=== PATIENT | male | born 1950 | race African-American/Black ===

== ENCOUNTER 2020-03-06 11:01 | Inpatient (IN) | payer MEDICARE, OTHER ==
[~2020-03-06] VITALS: Ht 175.3 cm; Wt 103.4 kg
[2020-03-06 11:05] VITALS: BP 155/82
--- NOTE | 2020-03-06 11:05 | NUR ---
ED Nurse Note: Pt brought in by ambulance from [facility] d/t SOB x 1 week. Pt was desaturating to 88% on room air. Pt placed on nonrebreather 10 L by EMS and arrives with O2 sat of 98%. Pt is audibly wheezing. A+Ox4, speaking in complete sentences. Pt placed on monitor. Pt has hx of COPD
[2020-03-06] MEDS ORDERED: ARGINAID POWDE1 EACH PO (11:17)
[2020-03-06] MEDS ORDERED: IPRATROPIU0.2 MG/1 M HHN (11:17)
[2020-03-06] MEDS ORDERED: HUMALOG100 UNIT/4 SUBQ (11:17)
[2020-03-06] MEDS ORDERED: BUDESONIDE0.25 MG/2 IH (11:17)
[2020-03-06] MEDS ORDERED: NEPHROVITE1 TAB ORAL (11:17)
[2020-03-06] MEDS ORDERED: BETADINE3780 ML TP (11:17)
[2020-03-06] MEDS ORDERED: BENADRYL25 MG ORAL (11:17)
[2020-03-06] MEDS ORDERED: AMLODIPINE BESYL5 MG ORAL (11:17)
[2020-03-06] MEDS ORDERED: CLONIDINE HCL0.1 MG PO (11:17)
[2020-03-06] MEDS ORDERED: NORCO 5-325 TA1 EAC1 ORAL (11:20)
[2020-03-06] MEDS ORDERED: ROBITUSSIN COU118 M1 ORAL (11:20)
--- NOTE | 2020-03-06 11:40 | Emergency Room Report ---
History of Present Illness General Chief Complaint: Dyspnea/Respdistress Source: Patient, EMS Present Illness HPI Patient presents with 4 to 5 days of increasing dyspnea on exertion. In addition to that he has edema. 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 COVID-19 Screening: Negative COVID-19 COVID-19 Testing Source: 02/25/20 Patient History Past Medical History: see triage record, DM, HTN, CHF, COPD Past Surgical History: other - Amputation left fifth toe Social History: Reports: smoking Social History Narrative [facility] facility Reviewed Nursing Documentation: PMH: Agreed; PSxH: Agreed Nursing Documentation-PMH Past Medical History: No History, Except For Hx Hypertension: Yes Hx COPD: Yes Hx Diabetes: Yes Review of Systems All Other Systems: negative except mentioned in HPI Physical Exam Vital Signs Date Time Temp Pulse Resp B/P (MAP) Pulse Ox O2 Delivery O2 Flow Rate FiO2 03/06/20 10:56 97.5 77 16 148/86 (106) 96 Non-Rebreather 10.0 Sp02 EP Interpretation: reviewed, abnormal - Interpreted as low by me General Appearance: alert, moderate distress, Chronically Ill Eyes: bilateral eye normal inspection, bilateral eye PERRL, bilateral eye EOMI ENT: moist mucus membranes Neck: supple Respiratory: respiratory distress, crackles, wheezing, expiration Cardiovascular #1: regular rate, rhythm, edema Cardiovascular #2: 2+ radial (R) Gastrointestinal: non tender, non-distended, decreased bowel sounds, overweight Genitourinary: no CVA tenderness Musculoskeletal: back normal, swelling - Right forearm, other - Amputation left fifth toe Neurologic: alert, motor strength/tone normal, oriented - X2, DTRs symmetric, sensory intact Psychiatric: depressed affect, anxious Skin: warm/dry, other - Sallow Procedures Critical Care Time Critical Care Time Total Critical Care Time: 90 min bedside evaluation and treatment excludes procedures (EKG). Reason for critical care: Respiratory distress, hypoxia, congestive heart failure, renal failure, repeat evaluations, COPD Possible complications: hypotension, hypertension, SC, shock, arrhythmias, metabolic acidosis, end organ damage, respiratory failure. Interventions: Lasix, breathing treatments, repeat evaluations, repeat Lasix, coverage with antibiotics, treatment of bronchospasm, discussion with 2 admitting physicians Course: Patient presents with edema and dyspnea with hypoxia. Oxygen and Lasix ordered. Breathing treatments ordered. Unable to perform until Covid test returns. Several communications with respiratory therapy after Covid test returned negative. Some improvement after initial breathing treatment however dose given was not dose ordered. Dexamethasone ordered. Based on x-ray and hypoxia antibiotic coverage ordered. Patient hypertensive and Nitropaste had already been given. Oral medications also administered. With the results of renal failure Lasix dose increased and repeated. Ordered end-tidal CO2. Patient with some improvement. Discussion with primary physician in detail. He requested admission to panel physician and panel physician was contacted. Patient improved. Consultations: nursing staff, EMS, respiratory therapy, 2 admitting physicians Performed by: Dr. Overton Tolerated well condition = serious Medical Decision Making Diagnostic Impression: Primary Impression: Hypoxia Additional Impressions: CHF (congestive heart failure) Qualified Codes: I50.9 - Heart failure, unspecified COPD (chronic obstructive pulmonary disease) Qualified Codes: J44.1 - Chronic obstructive pulmonary disease with (acute) exacerbation Renal failure (ARF), acute on chronic Qualified Codes: N17.9 - Acute kidney failure, unspecified; N18.4 - Chronic kidney disease, stage 4 (severe) COVID-19 ruled out by laboratory testing ER Course Patient presents via paramedics with dyspnea and total body swelling. Differential includes pneumonia, COVID-19, congestive failure, COPD exacerbation amongst others. The patient denies chest pain at this time. He is dyspneic and working hard to breathe. Oxygen is helping. He has bronchospasm and needs breathing treatments. COVID-19 needs to be excluded. Patient is placed on a telemetry monitor. Some improvement after oxygen. EKG no injury. CXR with CHF. Lasix already given. Nitro paste ordered. Will cover with antibiotics even though WBC normal. Lactic acid normal. Broaden antibiotics anyway. 1338 COVID-19 test negative. CMP with elevated BUN and creatinine. Better after breathing treatment. Hypertensive. Meds ordered. ETCO2 also ordered. Initial dose of albuterol was 1/6 of total dose ordered. Discussion with respiratory therapy to make sure that the rest of dosing is given. Improvement after appropriate breathing treatments. Discussion with primary MD in detail. He requests admission to panel physician. Panel physician contacted. Repeat evaluation of patient with some urine output, less dyspnea however still with mild hypoxemia. Laboratory Tests Test 03/06/20 11:25 White Blood Count 10.0 K/UL (4.8-10.8) Red Blood Count 4.15 M/UL (4.70-6.10) L Hemoglobin 11.5 G/DL (14.2-18.0) L Hematocrit 35.8 % (42.0-52.0) L Mean Corpuscular Volume 86 FL (80-99) Mean Corpuscular Hemoglobin 27.8 PG (27.0-31.0) Mean Corpuscular Hemoglobin Concent 32.2 G/DL (32.0-36.0) Red Cell Distribution Width 15.0 % (11.6-14.8) H Platelet Count 253 K/UL (150-450) Mean Platelet Volume 8.0 FL (6.5-10.1) Neutrophils (%) (Auto) 70.3 % (45.0-75.0) Lymphocytes (%) (Auto) 16.6 % (20.0-45.0) L Monocytes (%) (Auto) 8.2 % (1.0-10.0) Eosinophils (%) (Auto) 3.8 % (0.0-3.0) H Basophils (%) (Auto) 1.1 % (0.0-2.0) Prothrombin Time 11.2 SEC (9.30-11.50) Prothrombin Time INR 1.0 (0.9-1.1) Activated Partial Thromboplast Time 31 SEC (23-33) Sodium Level 137 MMOL/L (136-145) Potassium Level 4.8 MMOL/L (3.5-5.1) Chloride Level 105 MMOL/L (98-107) Carbon Dioxide Level 21 MMOL/L (21-32) Anion Gap 11 mmol/L (5-15) Blood Urea Nitrogen 50 mg/dL (7-18) H Creatinine 3.9 MG/DL (0.55-1.30) H Estimated Glomerular Filtration Rate 18.8 mL/min (>60) Glucose Level 162 MG/DL (74-106) H Lactic Acid Level 1.30 mmol/L (0.4-2.0) Calcium Level 8.4 MG/DL (8.5-10.1) L Magnesium Level 2.3 MG/DL (1.8-2.4) Ferritin 59 NG/ML (8-388) Total Bilirubin 0.2 MG/DL (0.2-1.0) Aspartate Amino Transferase (AST) 26 U/L (15-37) Alanine Aminotransferase (ALT) 24 U/L (12-78) Alkaline Phosphatase 120 U/L (46-116) H Lactate Dehydrogenase 237 U/L (81-234) H Total Creatine Kinase 374 U/L (26-308) H Creatine Kinase MB 8.1 NG/ML (0.0-3.6) H Creatine Kinase MB Relative Index 2.1 Troponin I 0.012 ng/mL (0.000-0.056) C-Reactive Protein, Quantitative 4.2 mg/dL (0.00-0.90) H Pro-B-Type Natriuretic Peptide 3937 pg/mL (0-125) H Total Protein 7.4 G/DL (6.4-8.2) Albumin 2.8 G/DL (3.4-5.0) L Globulin 4.6 g/dL Albumin/Globulin Ratio 0.6 (1.0-2.7) L Lipase 128 U/L (73-393) Microbiology Date/Time Source Procedure Growth Status 03/06/20 11:40 Nasopharynx SARS-CoV-2 RdRp Gene Assay - Final Complete EKG Diagnostic Results Rate: normal Rhythm: NSR ST Segments: no acute changes Rhythm Strip Diag. Results EP Interpretation: yes Rhythm: NSR, no PVC's, no ectopy Chest X-Ray Diagnostic Results Chest X-Ray Diagnostic Results : Chest X-Ray Ordered: Yes # of Views/Limited/Complete: 1 View Indication: Shortness of Breath EP Interpretation: Yes Interpretation: no pneumothorax, other - bilat inc cantor with possible R effusion Impression: Other Electronically Signed by: Electronically signed by Ganesh Overton MD Last Vital Signs Date Time Temp Pulse Resp B/P (MAP) Pulse Ox O2 Delivery O2 Flow Rate FiO2 03/06/20 22:17 86 20 96 Venturi Mask 10.0 50 03/06/20 18:22 147/82 03/06/20 16:15 96.6 Status: improved Disposition: ADMITTED INPATIENT Condition: Serious Ganesh Overton MD Mar 06, 2020 11:40
[2020-03-06 11:41] LABS: BASOPHILS % (AUTO) 1.1 % (0.0-2.0); EOSINOPHILS % (AUTO) 3.8 % (0.0-3.0); HEMATOCRIT 35.8 % (42.0-52.0); HEMOGLOBIN 11.5 G/DL (14.2-18.0); LYMPHOCYTES % (AUTO) 16.6 % (20.0-45.0); MEAN CORPUSCULAR VOLUME 86 FL (80-99); MONOCYTES % (AUTO) 8.2 % (1.0-10.0); NEUTROPHILS % (AUTO) 70.3 % (45.0-75.0); PLATELET COUNT 253 K/UL (150-450); RED BLOOD COUNT 4.15 M/UL (4.70-6.10)
[2020-03-06] MEDS ORDERED: Ipratropium 0.02% Inh Soln 2.5ml UD HHN ONE (11:45)
[2020-03-06] MEDS ORDERED: dexAMETHasone 10mg/ml Inj IV ONE (11:45)
[2020-03-06 11:53] LABS: CALCIUM 8.4 MG/DL (8.5-10.1); CREATININE 3.9 MG/DL (0.55-1.30); POTASSIUM 4.8 MMOL/L (3.5-5.1)
--- NOTE | 2020-03-06 12:00 | NUR ---
ED Nurse Note: ED MD placed pt on 3 L NC to assess pt's oxygen saturation. Pt satting 92%.
[2020-03-06 12:08] LABS: ALBUMIN 2.8 G/DL (3.4-5.0); ALBUMIN/GLOBULIN RATIO 0.6 (1.0-2.7); BILIRUBIN,TOTAL 0.2 MG/DL (0.2-1.0); CKMB 8.1 NG/ML (0.0-3.6)
--- NOTE | 2020-03-06 12:10 | NUR ---
ED Nurse Note: pt aware of need for urine sample
--- NOTE | 2020-03-06 12:25 | Diagnostic Imaging Report ---
EXAM: XR Chest, 1 View CLINICAL HISTORY: DYSPNEA TECHNIQUE: Frontal view of the chest. COMPARISON: None FINDINGS: Hardware: None. Lungs/pleura: Extensive opacities/consolidations throughout the lungs with some sparing of the lung apices. Right greater than left pleural effusions. Heart/mediastinum: Enlargement of the cardiomediastinal silhouette. Soft tissues: Unremarkable. Bones: No acute fracture. Upper abdomen: Normal. IMPRESSION: Extensive opacities/consolidations throughout the lungs with some sparing of the lung apices, concerning for infectious/inflammatory process and/or pulmonary edema. Right greater than left pleural effusions.
[2020-03-06 13:00] VITALS: BP 162/88
--- NOTE | 2020-03-06 13:27 | NUR ---
ED Nurse Note: urine, mrsa, cre, vre swabs sent
[2020-03-06] MEDS ORDERED: Nitroglycerin 2% oint pkt TOPIC ONE (13:45)
[2020-03-06] MEDS ORDERED: Azithromycin 500 MG in D5W 275 ML IV ONE (13:45)
[2020-03-06] MEDS ORDERED: cefTRIAXone 1 GM in D5W 55 ML IVPB SCH (13:45)
--- NOTE | 2020-03-06 14:10 | NUR ---
ED Nurse Note: RT @ bedside
[2020-03-06] MEDS: Albuterol ud Inhalation HHN SCH ×3 (14:20→15:48)
[2020-03-06 15:07] LABS: APPEARANCE,URINE SLIGHTLY CLOUDY; BILIRUBIN, URINE NEGATIVE (NEGATIVE); COLOR,URINE PALE YELLOW; GLUCOSE, URINE (UA) 2+ (NEGATIVE); KETONES,URINE NEGATIVE (NEGATIVE); LEUKOCYTE ESTERASE ,URINE NEGATIVE (NEGATIVE); NITRITE,URINE NEGATIVE (NEGATIVE); PH,URINE 5 (4.5-8.0); PROTEIN,URINE 4+ (NEGATIVE); UROBILINOGEN,URINE NORMAL MG/DL (0.0-1.0)
--- NOTE | 2020-03-06 15:48 | NUR ---
ED Nurse Note: Scanner not working for RT. Scanned breathing tx medications for him after they were administered.
--- NOTE | 2020-03-06 15:53 | NUR ---
ED Nurse Note: report given to Kaur RN in 2E
--- NOTE | 2020-03-06 16:01 | NUR ---
ED Nurse Note: Dr. Serna @ bedside
--- NOTE | 2020-03-06 16:07 | Cardiac Electrophysiology PN ---
Subjective Subjective [id number]. ECG SR with RBBB, LAFB BNP 30K.Cr 3.5 Start Lasix 80 iv bid Objective Last 24 Hour Vital Signs Date Time Temp Pulse Resp B/P (MAP) Pulse Ox O2 Delivery O2 Flow Rate FiO2 03/06/20 15:56 172/74 03/06/20 15:56 77 172/74 03/06/20 13:47 163/74 03/06/20 13:00 98.3 79 20 162/88 92 Nasal Cannula 3.0 03/06/20 11:05 97.9 72 20 155/82 96 Non-Rebreather 10.0 03/06/20 11:05 82 16 Non-Rebreather 10.0 03/06/20 10:56 97.5 77 16 148/86 (106) 96 Non-Rebreather 10.0 Laboratory Tests Test 03/06/20 11:25 03/06/20 13:24 White Blood Count 10.0 K/UL (4.8-10.8) Red Blood Count 4.15 M/UL (4.70-6.10) L Hemoglobin 11.5 G/DL (14.2-18.0) L Hematocrit 35.8 % (42.0-52.0) L Mean Corpuscular Volume 86 FL (80-99) Mean Corpuscular Hemoglobin 27.8 PG (27.0-31.0) Mean Corpuscular Hemoglobin Concent 32.2 G/DL (32.0-36.0) Red Cell Distribution Width 15.0 % (11.6-14.8) H Platelet Count 253 K/UL (150-450) Mean Platelet Volume 8.0 FL (6.5-10.1) Neutrophils (%) (Auto) 70.3 % (45.0-75.0) Lymphocytes (%) (Auto) 16.6 % (20.0-45.0) L Monocytes (%) (Auto) 8.2 % (1.0-10.0) Eosinophils (%) (Auto) 3.8 % (0.0-3.0) H Basophils (%) (Auto) 1.1 % (0.0-2.0) Prothrombin Time 11.2 SEC (9.30-11.50) Prothromb Time International Ratio 1.0 (0.9-1.1) Activated Partial Thromboplast Time 31 SEC (23-33) Sodium Level 137 MMOL/L (136-145) Potassium Level 4.8 MMOL/L (3.5-5.1) Chloride Level 105 MMOL/L (98-107) Carbon Dioxide Level 21 MMOL/L (21-32) Anion Gap 11 mmol/L (5-15) Blood Urea Nitrogen 50 mg/dL (7-18) H Creatinine 3.9 MG/DL (0.55-1.30) H Estimat Glomerular Filtration Rate 18.8 mL/min (>60) Glucose Level 162 MG/DL (74-106) H Lactic Acid Level 1.30 mmol/L (0.4-2.0) Calcium Level 8.4 MG/DL (8.5-10.1) L Magnesium Level 2.3 MG/DL (1.8-2.4) Ferritin 59 NG/ML (8-388) Total Bilirubin 0.2 MG/DL (0.2-1.0) Aspartate Amino Transf (AST/SGOT) 26 U/L (15-37) Alanine Aminotransferase (ALT/SGPT) 24 U/L (12-78) Alkaline Phosphatase 120 U/L (46-116) H Lactate Dehydrogenase 237 U/L (81-234) H Total Creatine Kinase 374 U/L (26-308) H Creatine Kinase MB 8.1 NG/ML (0.0-3.6) H Creatine Kinase MB Relative Index 2.1 Troponin I 0.012 ng/mL (0.000-0.056) C-Reactive Protein, Quantitative 4.2 mg/dL (0.00-0.90) H Pro-B-Type Natriuretic Peptide 3937 pg/mL (0-125) H Total Protein 7.4 G/DL (6.4-8.2) Albumin 2.8 G/DL (3.4-5.0) L Globulin 4.6 g/dL Albumin/Globulin Ratio 0.6 (1.0-2.7) L Lipase 128 U/L (73-393) Urine Color Pale yellow Urine Appearance Slightly cloudy Urine pH 5 (4.5-8.0) Urine Specific [place] 1.020 (1.005-1.035) Urine Protein 4+ (NEGATIVE) H Urine Glucose (UA) 2+ (NEGATIVE) H Urine Ketones Negative (NEGATIVE) Urine Blood 2+ (NEGATIVE) H Urine Nitrite Negative (NEGATIVE) Urine Bilirubin Negative (NEGATIVE) Urine Urobilinogen Normal MG/DL (0.0-1.0) Urine Leukocyte Esterase Negative (NEGATIVE) Urine RBC 10-15 /HPF (0 - 0) H Urine WBC 0-2 /HPF (0 - 0) Urine Squamous Epithelial Cells Few /LPF (NONE/OCC) Urine Amorphous Sediment Few /LPF (NONE) H Urine Bacteria Few /HPF (NONE) Urine Granular Casts 0-2 /LPF (NONE) H Urine Fine Granular Casts 0-2 /LPF (NONE) H Urine Coarse Granular Casts /LPF (NONE) Microbiology Date/Time Source Procedure Growth Status 03/06/20 11:40 Nasopharynx SARS-CoV-2 RdRp Gene Assay - Final Complete Ponce Serna MD Mar 06, 2020 16:07
[2020-03-06 16:15] VITALS: BP 147/82
--- NOTE | 2020-03-06 16:15 | NUR ---
ED Nurse Note: pt transferred safely to 2E on the [facility] with all belongings.
--- NOTE | 2020-03-06 16:50 | NUR ---
NURSE NOTES: Patient admitted from ED, alert and oriented x 4. On O2 at 4L nasal cannula, breathing labored, wheezing noted in lungs, saturation ranging from 87-91%. IV line on left forearm g20, patent. secured entrance monitor placed. Skin check done, with sacral discoloration noted, picture taken. BLE edema noted. right hand and forearm swelling noted, patient verbalized it was from his IV from another hospital a few weeks ago. 5th digit left foot amputated, procedure done last week as verbalized by patient. Belongings accounted for. Oriented to room and call light. Bed locked in low position, head of bed elevated. Dr Cueva notified of admission, awaiting response for admission orders.
[2020-03-06] MEDS: HydrALAZINE 25mg tab ORAL SCH (18:22)
[2020-03-06] MEDS: D5 1/2NS 1,000 ML IV SCH (18:22)
[2020-03-06] MEDS ORDERED: Morphine Sulfate 2mg/ml Inj(IV/IM USE ONLY) IVP PRN (18:45)
[2020-03-06] MEDS ORDERED: Chloraseptic Spray 20mL Bottle ORAL PRN (19:00)
[2020-03-06] MEDS ORDERED: Ipratropium 0.02% Inh Soln 2.5ml UD HHN PRN (19:00)
--- NOTE | 2020-03-06 19:15 | Consultation ---
DATE OF CONSULTATION: 03/06/2020 CARDIOLOGY CONSULTATION REFERRING PHYSICIAN: Pasha Cueva D.O. REASON FOR CONSULTATION: Congestive heart failure, shortness of breath. HISTORY OF PRESENT ILLNESS: The patient is a 69-year-old gentleman with a history of hypertension, COPD, diabetes, who was brought to the emergency room for increasing shortness of breath and lower extremity edema as well as right hand edema. The patient's pulse ox was 96% in the emergency room with a blood pressure of 148/86 with a pulse of 77. A cardiology consultation was obtained for further evaluation and management. His BUN was 50, creatinine 3.9. Troponin 0.01. BNP is almost 4000. REVIEW OF SYSTEMS: Negative other than what is mentioned in history of present illness. PAST MEDICAL HISTORY: As mentioned above. FAMILY HISTORY: Noncontributory. 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 Does not smoke or drink alcohol. MEDICATIONS: Per reconciliation include amlodipine 5 mg b.i.d. and p.r.n. clonidine, insulin, and [place]. PHYSICAL EXAMINATION: VITAL SIGNS: Blood pressure 172/74, pulse is 77, respirations are 18, and he is afebrile. HEAD AND NECK: Positive JVD. LUNGS: Decreased breath sounds. CARDIOVASCULAR: Regular S1 and S2 with no gallop. ABDOMEN: Soft. EXTREMITIES: 3+ pitting edema in lower extremities as well as 2+ pitting edema in right arm. LABORATORY AND DIAGNOSTIC DATA: Labs show white count of 10, hemoglobin 11.5, hematocrit 35.8, and platelets of 253,000. Sodium 137, potassium 4.8, BUN of 50, creatinine 2.9, and glucose of 162. Troponin is negative. ALT is 50 and alkaline phosphatase is elevated. ASSESSMENT AND PLAN: 1. Severe bilateral lower extremity edema with shortness of breath and BNP of almost 4000. This could be due to renal failure as well. I will discontinue amlodipine. Start the patient on Lasix 80 mg IV b.i.d. We will get an echocardiogram and lower extremity duplex as well as right arm duplex. 2. Hypertension. We will maximize his Lasix lower extremity edema. I will add hydralazine to his medical regimen at 50 mg b.i.d. and p.r.n. clonidine. 3. Renal failure, creatinine was 3.9. Further evaluation by Nephrology. 4. COPD. Thank you very much for allowing me to participate in the care of this patient. Please do not hesitate to contact me for any questions regarding my evaluation. It is of note the patient also has diabetes and he is also on insulin. Ponce Serna M.D. DR: BHAVNA JOB#: [id number] CC:
--- NOTE | 2020-03-06 19:44 | NUR ---
NURSE HAND-OFF REPORT: Important Events on Shift:admission, orders in. Insulin sliding scale order endorsed to Diane RN. RT setting up venturi mask 50% as ordered by Dr Caceres Patient Status: alert, with SOB Diet: regular Pending Orders: Pending Results/Labs:covid Pending MD notification: Latest Vital Signs: Temperature 97.0 , Pulse 81 , B/P 147 /82 , Respiratory Rate 20 , O2 SAT 93 , Nasal Cannula, O2 Flow Rate 4.0 . Vital Sign Comment: EKG Rhythm: Sinus Rhythm Rhythm change?: MD Notified?: - MD Response: Latest Ryan Fall Score: 20 Fall Risk: Low Risk Safety Measures: Call light Within Reach, Bed Alarm Zone 1, Side Rails Side Rails x3, Bed position Low and Locked. Fall Precautions: Report given to Diane TAMAYO.
--- NOTE | 2020-03-06 19:45 | NUR ---
NURSE NOTES: Patient received from Kaur, RN. Patient is awake, alert and oriented x 4. Patient is on 4 L oxygen mask, will change to 50% 10 L Venturi mask per order, will notify RT. Patient has urinal in bed, able to use it by himself. Patient has Left AC 20 gauge IV, patent and flushed. Patient has no complaints as of the moment. Bed is in the lowest position, call light within reach. Will continue to monitor.
[2020-03-06 20:00] VITALS: BP 137/73
--- NOTE | 2020-03-06 21:00 | Consultation ---
DATE OF CONSULTATION: 03/06/2020 PULMONARY CONSULTATION HISTORY OF PRESENT ILLNESS: This is a 69-year-old male with a history of hypertension and COPD, who was brought to the hospital with shortness of breath. The patient is also a known diabetic. The patient was found to have normal oxygenation initially in the ER, currently saturating 88% on 4 liters of oxygen. The patient was also found to have evidence of renal failure with a creatinine of 3.9. Troponins negative. BNP is over 4000. He underwent imaging studies, which showed bilateral extensive opacities concerning for infectious process or pulmonary edema. There is also a pleural effusion. The patient has been seen by Cardiology. HOME MEDICATIONS: Amlodipine, clonidine, insulin, [place]. FAMILY HISTORY: None. SURGERIES: None. ALLERGIES: Penicillin. REVIEW OF SYSTEMS: Denies any headaches, hematemesis, melena, or hematochezia. PHYSICAL EXAMINATION: GENERAL: A 69-year-old male. HEENT: Unremarkable. LUNGS: Bibasilar crackles. ABDOMEN: Soft. VITAL SIGNS: Blood pressure is 140/80, heart rate 94, respirations are 20, O2 sats 90% on 4 liters of oxygen. LABORATORY DATA: . Creatinine of 3.9. He has elevation of alk phos to 120, LDH 237, total CK 374, CK 8.1, CRP is 4.2. Coags show normal PT, PTT. Urinalysis is negative. IMPRESSION: 1. Pulmonary infiltrates bilaterally, suspect infectious process versus pulmonary edema. 2. Hypertension. 3. Diabetes mellitus. 4. Renal failure. 5. COPD. DISCUSSION: We will initiate breathing treatments with albuterol and Atrovent after COVID-19 testing is available. Broad-spectrum antibiotics will be given. The patient has received Decadron as well and diuretics. Await COVID-19 testing. We will follow carefully. Jacob Caceres M.D. DR: TAHIR JOB#: [id number] CC:
[2020-03-06] MEDS: Budesonide HHN 0.25mg/2ml ud HHN SCH (22:07)
[2020-03-06] MEDS: NovoLOG Insulin Flexpen SUBQ SCH (22:21)
[2020-03-07] VITALS: BP 145/56
[2020-03-07 04:00] VITALS: BP 137/74
[2020-03-07] MEDS: NovoLOG Insulin Flexpen SUBQ SCH ×4 (06:30→20:53)
--- NOTE | 2020-03-07 07:40 | NUR ---
NURSE HAND-OFF REPORT: Important Events on Shift:[Patient able to stand up] Patient Status: [] Diet: [regular diet] Pending Orders: [] Pending Results/Labs:[] Pending MD notification:[] Latest Vital Signs: Temperature 98.1 , Pulse 90 , B/P 137 /74 , Respiratory Rate 28 , O2 SAT 94 , Venturi Mask, O2 Flow Rate 10.0 . Vital Sign Comment: [] EKG Rhythm: Sinurs Rhythm w/ BBB Rhythm change?: N MD Notified?: - MD Response: Latest Ryan Fall Score: 20 Fall Risk: Low Risk Safety Measures: Call light Within Reach, Bed Alarm Zone 1, Side Rails Side Rails x2, Bed position Low and Locked. Fall Precautions: Yellow Socks Yellow Gown Patient Fall Education Report given to [BELKIS Whelan].
--- NOTE | 2020-03-07 07:46 | NUR ---
NURSE NOTES: Patient sitting up at edge of bed, just finished breakfast and asking for more food, on room air, has removed his venturi mask, patient appears very disheveled and anxious, bed in lowest position, call light within reach. I am urging patient to put venturi mask on, patient refusing to wear the mask.
[2020-03-07 08:00] VITALS: BP 122/66
--- NOTE | 2020-03-07 08:36 | Pulmonology Progress Note ---
Subjective Interval Events: Feeling better; keeps taking O2 off Constitutional: Reports: no symptoms HEENT: Repors: no symptoms Respiratory: Reports: no symptoms Cardiovascular: Reports: no symptoms Gastrointestinal/Abdominal: Reports: no symptoms Genitourinary: Reports: no symptoms Allergies: Coded Allergies: PENICILLINS (Verified Allergy, Unknown, 03/06/20) Uncoded Allergies: SEAFOOD (Allergy, Unknown, 03/06/20) Objective Last 24 Hour Vital Signs Date Time Temp Pulse Resp B/P (MAP) Pulse Ox O2 Delivery O2 Flow Rate FiO2 03/07/20 08:00 98.1 77 20 122/66 (84) 95 03/07/20 04:00 98.1 88 28 137/74 (95) 94 03/07/20 04:00 90 03/07/20 00:00 98.0 88 24 145/56 (85) 94 03/07/20 00:00 96 03/06/20 22:17 86 20 96 Venturi Mask 10.0 50 03/06/20 22:07 89 22 94 Venturi Mask 10.0 50 03/06/20 21:00 Venturi Mask 03/06/20 20:00 98.0 88 32 137/73 (94) 93 03/06/20 20:00 88 03/06/20 19:45 88 20 92 Venturi Mask 10.0 50 03/06/20 19:45 92 Venturi Mask 10.0 50 03/06/20 18:22 147/82 03/06/20 17:10 Nasal Cannula 4.0 03/06/20 16:15 96.6 84 20 147/82 (103) 90 03/06/20 16:15 97.0 81 20 141/89 93 Nasal Cannula 4.0 36 03/06/20 16:01 77 21 96 Nasal Cannula 4.0 36 81 27 96 03/06/20 15:56 172/74 03/06/20 15:56 77 172/74 03/06/20 15:49 77 24 96 Nasal Cannula 4.0 36 77 24 93 03/06/20 14:20 94 27 94 Nasal Cannula 4.0 36 73 27 92 03/06/20 13:47 163/74 03/06/20 13:00 98.3 79 20 162/88 92 Nasal Cannula 3.0 03/06/20 11:05 97.9 72 20 155/82 96 Non-Rebreather 10.0 03/06/20 11:05 82 16 Non-Rebreather 10.0 03/06/20 10:56 97.5 77 16 148/86 (106) 96 Non-Rebreather 10.0 Intake and Output 03/06/20 03/07/20 19:00 07:00 Intake Total 800 ml Output Total 900 ml 600 ml Balance -100 ml -600 ml Intake Oral 800 ml Output Urine Total 900 ml 600 ml # Voids 4 2 # Bowel Movements 1 1 General Appearance: no acute distress HEENT: normocephalic Respiratory: chest wall non-tender, lungs clear Cardiovascular: normal peripheral pulses, normal rate Abdomen: normal bowel sounds Microbiology Date/Time Source Procedure Growth Status 03/06/20 13:24 Rectum Received 03/06/20 11:40 Nasopharynx SARS-CoV-2 RdRp Gene Assay - Final Complete Laboratory Tests 03/06/20 11:25: White Blood Count 10.0, Red Blood Count 4.15L, Hemoglobin 11.5L, Hematocrit 35.8L, Mean Corpuscular Volume 86, Mean Corpuscular Hemoglobin 27.8, Mean Corpuscular Hemoglobin Concent 32.2, Red Cell Distribution Width 15.0H, Platelet Count 253, Mean Platelet Volume 8.0, Neutrophils (%) (Auto) 70.3, Lymphocytes (%) (Auto) 16.6L, Monocytes (%) (Auto) 8.2, Eosinophils (%) (Auto) 3.8H, Basophils (%) (Auto) 1.1, Prothrombin Time 11.2, Prothromb Time International Ratio 1.0, Activated Partial Thromboplast Time 31, Sodium Level 137, Potassium Level 4.8, Chloride Level 105, Carbon Dioxide Level 21, Anion Gap 11, Blood Urea Nitrogen 50H, Creatinine 3.9H, Estimat Glomerular Filtration Rate 18.8, Glucose Level 162H, Lactic Acid Level 1.30, Calcium Level 8.4L, Magnesium Level 2.3, Ferritin 59, Total Bilirubin 0.2, Aspartate Amino Transf (AST/SGOT) 26, Alanine Aminotransferase (ALT/SGPT) 24, Alkaline Phosphatase 120H, Lactate Dehydrogenase 237H, Total Creatine Kinase 374H, Creatine Kinase MB 8.1H, Creatine Kinase MB Relative Index 2.1, Troponin I 0.012, C-Reactive Protein, Quantitative 4.2H, Pro-B-Type Natriuretic Peptide 3937H, Total Protein 7.4, Albumin 2.8L, Globulin 4.6, Albumin/Globulin Ratio 0.6L, Lipase 128 03/06/20 13:24: Urine Color Pale yellow, Urine Appearance Slightly cloudy, Urine pH 5, Urine Specific Mitchell 1.020, Urine Protein 4+H, Urine Glucose (UA) 2+H, Urine Ketones Negative, Urine Blood 2+H, Urine Nitrite Negative, Urine Bilirubin Negative, Urine Urobilinogen Normal, Urine Leukocyte Esterase Negative, Urine RBC 10-15H, Urine WBC 0-2, Urine Squamous Epithelial Cells Few, Urine Amorphous Sediment FewH, Urine Bacteria Few, Urine Granular Casts 0-2H, Urine Fine Granular Casts 0-2H, Urine Coarse Granular Casts 03/06/20 18:10: Troponin I 0.012 03/06/20 22:17: POC Whole Blood Glucose 369H 03/07/20 06:40: POC Whole Blood Glucose 139H Current Medications Medications (Trade) Dose Ordered Sig/Melissa Route PRN Reason Start Time Stop Time Status Last Admin Dose Admin Acetaminophen/ Hydrocodone Bitart ([place]el[place] 5/325) 1 tab Q4H PRN ORAL Moderate Pain (Pain Scale 4-6) 03/06/20 19:00 03/13/20 18:59 Albuterol/ Ipratropium (Albuterol/ Ipratropium) 3 ml Q6H PRN HHN Shortness of Breath 03/06/20 18:15 03/11/20 18:14 Amlodipine Besylate (Norvasc) 5 mg BID ORAL 03/07/20 09:00 04/06/20 08:59 Budesonide (Pulmicort) 0.25 mg EVERY 12 HOURS HHN 03/06/20 21:00 06/04/20 20:59 03/06/20 22:07 Clonidine HCl (Catapres Tab) 0.1 mg Q4H PRN ORAL SBP>170 03/06/20 16:15 06/04/20 16:14 Dextrose (Dextrose 50%) 25 ml Q30M PRN IV Hypoglycemia 03/06/20 20:00 06/04/20 19:59 Dextrose (Dextrose 50%) 50 ml Q30M PRN IV Hypoglycemia 03/06/20 20:00 06/04/20 19:59 Dextrose/Sodium Chloride 1,000 ml @ 60 mls/hr [id number] IV 03/06/20 18:15 04/05/20 18:14 03/06/20 18:22 Diphenhydramine HCl (Benadryl) 50 mg Q6H PRN ORAL Itching 03/06/20 19:00 04/05/20 18:59 Furosemide (Lasix) 80 mg EVERY 12 HOURS IV 03/06/20 21:00 04/05/20 20:59 03/06/20 22:08 Guaifenesin/ Dextromethorphan (Robitussin DM Syrup) 10 ml Q4H PRN ORAL For Cough 03/06/20 19:00 06/04/20 18:59 Heparin Sodium (Porcine) (Heparin 5000 units/ml) 5,000 units BID SUBQ 03/07/20 09:00 04/21/20 08:59 Hydralazine HCl (Apresoline) 25 mg BID ORAL 03/06/20 18:00 06/04/20 17:59 03/06/20 18:22 Insulin Aspart (NovoLOG) BEFORE MEALS AND HS SUBQ 03/06/20 21:00 06/04/20 20:59 03/06/20 22:21 Ipratropium Standard (Atrovent) 500 mcg Q4H PRN HHN Shortness of Breath 03/06/20 19:00 03/11/20 18:59 Morphine Sulfate (Morphine Sulfate) 2 mg Q4H PRN IVP For Pain 03/06/20 18:45 03/13/20 18:44 Phenol/Menthol (Chloraseptic) 1 spray TIDPRN PRN ORAL For Pain 03/06/20 19:00 06/04/20 18:59 Vitamin B Complex (Vitamin B Complex) 1 tab DAILY ORAL 03/07/20 09:00 06/05/20 08:59 Assessment/Plan Assessment/Plan IMPRESSION: 1. Pulmonary infiltrates bilaterally, suspect infectious process versus pulmonary edema. 2. Hypertension. 3. Diabetes mellitus. 4. Renal failure. 5. COPD. DISCUSSION: Continue breathing treatments with albuterol and Atrovent after COVID-19 testing is available. Broad-spectrum antibiotics will be given. The patient has received Decadron as well and diuretics. Await COVID-19 testing. I will follow carefully. Jie Rivera Omar Syed MD Mar 07, 2020 08:36
--- NOTE | 2020-03-07 08:38 | NUR ---
NURSE NOTES: Hand off to Kaur Villegas
[2020-03-07] MEDS: Vitamin B Complex Tab ORAL SCH (08:56)
[2020-03-07] MEDS: HydrALAZINE 25mg tab ORAL SCH ×2 (08:57→17:12)
[2020-03-07] MEDS: Heparin 5000 units/ml inj SUBQ SCH ×2 (08:59→17:13)
[2020-03-07] MEDS: Budesonide HHN 0.25mg/2ml ud HHN SCH ×2 (09:37→21:20)
[2020-03-07] MEDS: D5 1/2NS 1,000 ML IV SCH (10:16)
--- NOTE | 2020-03-07 11:13 | NUR ---
NURSE NOTES: Patient been restless saying he doesn't have oxygen in his mask, keeps removing it. RT came, saturation at 97%. Dr Cueva notified for patient's behavior, awaiting response. Addendum: 03/07/20 at 1355 by Kaur Villegas RN NURSE NOTES: For psych consult with Dr Diaz as per Dr Cueva. Patient still keeps on removing his venturi mask.
[2020-03-07 12:00] VITALS: BP 148/68
--- NOTE | 2020-03-07 12:30 | History and Physical Report ---
DATE OF ADMISSION: 03/06/2020 TIME SEEN: 9 a.m. CONSULTANTS: 1. Jacob Caceres MD. 2. Ponce Serna MD. CHIEF COMPLAINT: Shortness of breath, CHF, COPD exacerbation. 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 REVIEW OF SYSTEMS: No chest pain. Slight short of breath. No nausea, vomiting, or diarrhea. PAST MEDICAL HISTORY: Includes COPD, CHF, acute renal failure. PAST SURGICAL HISTORY: Left toe amputation. MEDICATIONS: Include amlodipine, heparin, budesonide, furosemide, ipratropium, guaifenesin, morphine, albuterol, clonidine ALLERGIES: Penicillin. SOCIAL HISTORY: No smoking. No alcohol. No intravenous drug abuse. FAMILY HISTORY: Noncontributory. PHYSICAL EXAMINATION: GENERAL: Sitting on bed, slight short of breath, getting pulmonary treatment, oriented x3, no acute distress. VITAL SIGNS: Temperature is 98 degrees, pulse 62, respiratory rate 20, blood pressure 122/66. CARDIOVASCULAR: No murmur. LUNGS: Poor exchange. ABDOMEN: Bowel sounds distant. EXTREMITIES: No cyanosis, clubbing, edema. NEUROLOGIC: The patient moves all extremities, slightly weak. LABORATORY AND DIAGNOSTIC DATA: Labs at this time show hemoglobin and hematocrit 11.5/35, otherwise CBC is normal. BMP is pending. Glucose came back 139. Troponin 0.012. INR is 1.0. Urinalysis show 4+ protein, 4+ glucose, 4+ blood. ASSESSMENT: 1. CHF. 2. COPD exacerbation. 3. Acute renal failure. 4. Anemia. 5. Shortness of breath. PLAN: 1. O2 and pulmonary treatment. 2. Antibiotics as needed. 3. Blood pressure and pain control. 4. Resume home medications. 5. PT and dietary evaluation. 6. CBC and BMP in the morning. Pasha Cueva D.O. DR: Rick JOB#: [id number] CC:
[2020-03-07] MEDS ORDERED: ACETAMINOPHEN325 M1 ORAL (12:37)
[2020-03-07] MEDS ORDERED: IPRAT-ALBUT 0.5-3 ML IH (12:37)
[2020-03-07] MEDS ORDERED: PULMICORT FLEX90 MCG IH (12:37)
[2020-03-07] MEDS ORDERED: GUAIFENESI100 MG/5 M ORAL (12:37)
--- NOTE | 2020-03-07 15:40 | NUR ---
PT Note PT rajan completed, treatment initiated. Patient has muscle weakness and LE edema, limiting his mobility and gait. Patient can benefit from PT services to increase his muscle strength and balance to improve his safety in mobility and gait. Addendum: 03/07/20 at 1541 by HANDY WILLIS PT Amended: Links added.
[2020-03-07 16:00] VITALS: BP 136/69
--- NOTE | 2020-03-07 18:08 | Cardiac Electrophysiology PN ---
Assessment/Plan Assessment/Plan 1. Severe bilateral lower extremity edema with shortness of breath and BNP of almost 4000. EF 60%. Due to CHF due to diastolic dysfunction renal failure. I will discontinue amlodipine. Continue Lasix 80 mg IV b.i.d. 2. Hypertension. On Lasix. Increase hydralazine 50 mg b.i.d. and p.r.n. clonidine. 3. Renal failure, creatinine was 3.9. Further evaluation by Nephrology. 4. COPD. DW RN Subjective Subjective Still SOb. ECG SR with RBBB, LAFB BNP 30K.Cr 3.5 On Lasix 80 iv bid Objective Last 24 Hour Vital Signs Date Time Temp Pulse Resp B/P (MAP) Pulse Ox O2 Delivery O2 Flow Rate FiO2 03/07/20 17:12 73 136/69 03/07/20 17:12 136/69 03/07/20 16:00 97.6 73 28 136/69 (91) 90 03/07/20 12:00 96.4 85 30 148/68 (94) 94 03/07/20 12:00 88 03/07/20 09:47 92 20 96 Venturi Mask 10.0 50 82 22 96 03/07/20 09:00 Venturi Mask 03/07/20 08:58 62 125/69 03/07/20 08:57 125/69 03/07/20 08:00 98.1 77 20 122/66 (84) 95 03/07/20 08:00 87 03/07/20 07:20 95 Venturi Mask 10.0 50 03/07/20 04:00 98.1 88 28 137/74 (95) 94 03/07/20 04:00 90 03/07/20 00:00 98.0 88 24 145/56 (85) 94 03/07/20 00:00 96 03/06/20 22:17 86 20 96 Venturi Mask 10.0 50 03/06/20 22:07 89 22 94 Venturi Mask 10.0 50 03/06/20 21:00 Venturi Mask 03/06/20 20:00 98.0 88 32 137/73 (94) 93 03/06/20 20:00 88 03/06/20 19:45 88 20 92 Venturi Mask 10.0 50 03/06/20 19:45 92 Venturi Mask 10.0 50 03/06/20 18:22 147/82 Intake and Output 03/06/20 03/07/20 19:00 07:00 Intake Total 800 ml Output Total 900 ml 600 ml Balance -100 ml -600 ml Intake Oral 800 ml Output Urine Total 900 ml 600 ml # Voids 4 2 # Bowel Movements 1 1 Laboratory Tests Test 03/06/20 18:10 03/06/20 22:17 03/07/20 06:40 03/07/20 11:47 Troponin I 0.012 ng/mL (0.000-0.056) POC Whole Blood Glucose 369 MG/DL (74-106) H 139 MG/DL (74-106) H 171 MG/DL (74-106) H Test 03/07/20 16:52 POC Whole Blood Glucose 190 MG/DL (74-106) H Microbiology Date/Time Source Procedure Growth Status 03/06/20 13:24 Rectum Received 03/06/20 11:40 Nasopharynx SARS-CoV-2 RdRp Gene Assay - Final Complete Objective HEAD AND NECK: Positive JVD. LUNGS: Decreased breath sounds. CARDIOVASCULAR: Regular S1 and S2 with no gallop. ABDOMEN: Soft. EXTREMITIES: 3+ pitting edema in lower extremities as well as 2+ pitting edema in right arm. Ponce Serna MD Mar 07, 2020 18:08
--- NOTE | 2020-03-07 18:40 | NUR ---
NURSE NOTES: IV out and reinserted to left wrist g22, infusing well. RT aware that patient keeps pulling out venturi mask.
--- NOTE | 2020-03-07 19:35 | NUR ---
NURSE NOTES: RECEIVED REPORT FROM BELKIS CHAIREZ. PT SITTING IN CHAIR, ASSISTED BACK TO BED ALERT/ORIENTED X4, ABLE TO MAKE NEEDS KNOWN. ON O2 VIA VENTURI MASK AT 50% 10L/MIN SATING AT 95%. RESPIRATORY CARE FACULTY IN PLACE. BED IN LOW POSITION & LOCKED, SIDE RAILS UP X2. BED IN LOW POSITION & LOCKED. CALL LIGHT WITH IN REACH. BED ALARM ON.
--- NOTE | 2020-03-07 19:45 | NUR ---
NURSE HAND-OFF REPORT: Important Events on Shift:IV sites found dislodged twice. Patient also keeps removing mask. Leads found unattached to patient several times. Patient Status: sleepy, non compliant. Diet: regular Pending Orders: Pending Results/Labs: Pending MD notification: Latest Vital Signs: Temperature 97.6 , Pulse 73 , B/P 136 /69 , Respiratory Rate 28 , O2 SAT 90 , Venturi Mask, O2 Flow Rate 10.0 . Vital Sign Comment: EKG Rhythm: SR W/ BBB Rhythm change?: N MD Notified?: - MD Response: Latest Ryan Fall Score: 20 Fall Risk: Low Risk Safety Measures: Call light Within Reach, Bed Alarm Zone 1, Side Rails Side Rails x2, Bed position Low and Locked. Fall Precautions: Yellow Socks Yellow Gown Patient Fall Education Report given to Sobia TAMAYO.
[2020-03-07 20:00] VITALS: BP 145/67
[2020-03-08] VITALS (7 sets, daily range): BP systolic 132–167; BP diastolic 72–93
--- NOTE | 2020-03-08 03:00 | NUR ---
NURSE NOTES: OBSERVED PT REMOVING VENTURI MASK EXPLAINED, REALITY ORIENTATION DONE WITH MINIMAL EFFECTIVENESS NOTED. FREQUENT VISUAL CHECKS DONE.
[2020-03-08] MEDS: D5 1/2NS 1,000 ML IV SCH (04:50)
[2020-03-08] MEDS: NovoLOG Insulin Flexpen SUBQ SCH ×4 (06:30→21:00)
--- NOTE | 2020-03-08 07:24 | NUR ---
NURSE HAND-OFF REPORT: Important Events on Shift:n/a Patient Status: stable Diet: cardiac Pending Orders: [] Pending Results/Labs:[] Pending MD notification:[] Latest Vital Signs: Temperature 98.0 , Pulse 77 , B/P 138 /72 , Respiratory Rate 24 , O2 SAT 94 , Venturi Mask, O2 Flow Rate 10.0 . Vital Sign Comment: [] EKG Rhythm: Sinus Rhythm Rhythm change?: Y MD Notified?: N - MD Response: Latest Ryan Fall Score: 50 Fall Risk: High Risk Safety Measures: Call light Within Reach, Bed Alarm Zone 1, Side Rails Side Rails x2, Bed position Low and Locked. Fall Precautions: Yellow Socks Yellow Gown Patient Fall Education Report given to BELKIS Ramirez.
--- NOTE | 2020-03-08 07:27 | NUR ---
NURSE NOTES: Pt received from Sobia TAMAYO. Pt sitting up in bed eating breakfast. venturi mask off. Educated on importance of keeping it on but he is non compliant. Told him that there will be a blood draw later and to please cooperate as results are important to determine progress. Bed low and locked. Call light within reach. D5 1/2 ns running in right forearm. No complaint of SOB at this time.
[2020-03-08] MEDS ORDERED: HydrALAZINE 50mg tab ORAL SCH (09:00)
--- NOTE | 2020-03-08 09:00 | NUR ---
PT NOTE Attempted to see patient for PT treatment. Patient declining to participate with PT, co fatigue, states that he did not sleep well last night. Instructed patient to notify RN if he would like to participate later. Erendirai RN aware, will follow.
[2020-03-08 09:06] LABS: HEMATOCRIT 33.6 % (42.0-52.0); HEMOGLOBIN 10.9 G/DL (14.2-18.0); MEAN CORPUSCULAR VOLUME 85 FL (80-99); PLATELET COUNT 264 K/UL (150-450); RED BLOOD COUNT 3.95 M/UL (4.70-6.10); RED CELL DISTRIBUTION WIDTH 14.9 % (11.6-14.8); WHITE BLOOD COUNT 12.4 K/UL (4.8-10.8)
[2020-03-08] MEDS: Vitamin B Complex Tab ORAL SCH (09:22)
[2020-03-08] MEDS: Heparin 5000 units/ml inj SUBQ SCH ×2 (09:24→18:50)
[2020-03-08 09:38] LABS: CALCIUM 8.1 MG/DL (8.5-10.1); CREATININE 4.4 MG/DL (0.55-1.30); POTASSIUM 5.7 MMOL/L (3.5-5.1)
[2020-03-08] MEDS: Budesonide HHN 0.25mg/2ml ud HHN SCH ×2 (09:56→20:29)
--- NOTE | 2020-03-08 10:28 | Pulmonology Progress Note ---
Subjective Interval Events: Feeling better; Constitutional: Reports: no symptoms HEENT: Repors: no symptoms Respiratory: Reports: no symptoms Cardiovascular: Reports: no symptoms Gastrointestinal/Abdominal: Reports: no symptoms Genitourinary: Reports: no symptoms Allergies: Coded Allergies: PENICILLINS (Verified Allergy, Unknown, 03/06/20) Uncoded Allergies: SEAFOOD (Allergy, Unknown, 03/06/20) Objective Last 24 Hour Vital Signs Date Time Temp Pulse Resp B/P (MAP) Pulse Ox O2 Delivery O2 Flow Rate FiO2 03/08/20 09:56 89 20 96 Venturi Mask 10.0 50 86 24 85 03/08/20 09:22 145/73 03/08/20 09:00 Venturi Mask 03/08/20 08:00 96.7 81 20 145/73 (97) 94 03/08/20 08:00 82 03/08/20 04:00 76 03/08/20 04:00 98.0 77 24 138/72 (94) 94 03/08/20 00:00 72 03/08/20 00:00 97.9 74 28 144/72 (96) 95 03/07/20 21:26 95 Venturi Mask 10.0 50 03/07/20 21:21 81 20 96 Venturi Mask 10.0 50 77 20 95 03/07/20 21:00 Venturi Mask 03/07/20 20:00 97.0 77 30 145/67 (93) 95 03/07/20 20:00 74 03/07/20 17:12 73 136/69 03/07/20 17:12 136/69 03/07/20 16:00 74 03/07/20 16:00 97.6 73 28 136/69 (91) 90 03/07/20 12:00 96.4 85 30 148/68 (94) 94 03/07/20 12:00 88 Intake and Output 03/07/20 03/08/20 19:00 07:00 Intake Total 300 ml Output Total 700 ml Balance -400 ml Intake Oral 300 ml Output Urine Total 700 ml General Appearance: no acute distress HEENT: normocephalic Respiratory: chest wall non-tender, lungs clear Cardiovascular: normal peripheral pulses, normal rate Abdomen: normal bowel sounds Microbiology Date/Time Source Procedure Growth Status 03/06/20 13:24 Rectum Received 03/06/20 11:40 Nasopharynx SARS-CoV-2 RdRp Gene Assay - Final Complete Laboratory Tests 03/07/20 11:47: POC Whole Blood Glucose 171H 03/07/20 16:52: POC Whole Blood Glucose 190H 03/08/20 05:59: POC Whole Blood Glucose 125H 03/08/20 08:50: White Blood Count 12.4H, Red Blood Count 3.95L, Hemoglobin 10.9L, Hematocrit 33.6L, Mean Corpuscular Volume 85, Mean Corpuscular Hemoglobin 27.6, Mean Corpuscular Hemoglobin Concent 32.4, Red Cell Distribution Width 14.9H, Platelet Count 264, Mean Platelet Volume 7.9, Neutrophils (%) (Auto) , Lymphocytes (%) (Auto) , Monocytes (%) (Auto) , Eosinophils (%) (Auto) , Basophils (%) (Auto) , Neutrophils % (Manual) [Pending], Lymphocytes % (Manual) [Pending], Platelet Estimate [Pending], Platelet Morphology [Pending], Sodium Level 138, Potassium L evel 5.7H, Chloride Level 106, Carbon Dioxide Level 21, Anion Gap 12, Blood Urea Nitrogen 80H, Creatinine 4.4H, Estimat Glomerular Filtration Rate 16.2, Glucose Level 162H, Calcium Level 8.1L, Troponin I 0.020, Pro-B-Type Natriuretic Peptide 6969H, Thyroid Stimulating Hormone (TSH) 0.986, Free Thyroxine 0.93 Current Medications Medications (Trade) Dose Ordered Sig/Melissa Route PRN Reason Start Time Stop Time Status Last Admin Dose Admin Acetaminophen/ Hydrocodone Bitart ([place] 5/325) 1 tab Q4H PRN ORAL Moderate Pain (Pain Scale 4-6) 03/06/20 19:00 03/13/20 18:59 Albuterol/ Ipratropium (Albuterol/ Ipratropium) 3 ml Q6H PRN HHN Shortness of Breath 03/06/20 18:15 03/11/20 18:14 Budesonide (Pulmicort) 0.25 mg EVERY 12 HOURS HHN 03/06/20 21:00 06/04/20 20:59 03/08/20 09:56 Clonidine HCl (Catapres Tab) 0.1 mg Q4H PRN ORAL SBP>170 03/06/20 16:15 06/04/20 16:14 Dextrose (Dextrose 50%) 25 ml Q30M PRN IV Hypoglycemia 03/06/20 20:00 06/04/20 19:59 Dextrose (Dextrose 50%) 50 ml Q30M PRN IV Hypoglycemia 03/06/20 20:00 06/04/20 19:59 Dextrose/Sodium Chloride 1,000 ml @ 60 mls/hr [id number] IV 03/06/20 18:15 04/05/20 18:14 03/08/20 04:50 Diphenhydramine HCl (Benadryl) 50 mg Q6H PRN ORAL Itching 03/06/20 19:00 04/05/20 18:59 Furosemide (Lasix) 80 mg EVERY 12 HOURS IV 03/06/20 21:00 04/05/20 20:59 03/08/20 09:23 Guaifenesin/ Dextromethorphan (Robitussin DM Syrup) 10 ml Q4H PRN ORAL For Cough 03/06/20 19:00 06/04/20 18:59 Heparin Sodium (Porcine) (Heparin 5000 units/ml) 5,000 units BID SUBQ 03/07/20 09:00 04/21/20 08:59 03/08/20 09:24 Hydralazine HCl (Apresoline) 50 mg BID ORAL 03/08/20 09:00 06/04/20 17:59 03/08/20 09:22 Insulin Aspart (NovoLOG) BEFORE MEALS AND HS SUBQ 03/06/20 21:00 06/04/20 20:59 03/07/20 20:53 Ipratropium [place] (Atrovent) 500 mcg Q4H PRN HHN Shortness of Breath 03/06/20 19:00 03/11/20 18:59 Morphine Sulfate (Morphine Sulfate) 2 mg Q4H PRN IVP For Pain 03/06/20 18:45 03/13/20 18:44 Phenol/Menthol (Chloraseptic) 1 spray TIDPRN PRN ORAL For Pain 03/06/20 19:00 06/04/20 18:59 Vitamin B Complex (Vitamin B Complex) 1 tab DAILY ORAL 03/07/20 09:00 06/05/20 08:59 03/08/20 09:22 Assessment/Plan Assessment/Plan IMPRESSION: 1. Pulmonary infiltrates bilaterally, suspect infectious process versus pulmonary edema. 2. Hypertension. 3. Diabetes mellitus. 4. Renal failure. 5. COPD. 6. Negative COVID 19 rapid test DISCUSSION: Continue breathing treatments with albuterol and Atrovent Negaqtive COVID 19 Broad-spectrum antibiotics will be given. The patient has received Decadron as well and diuretics. I will follow carefully. Jacob Caceres M.D. Jacob Caceres MD Mar 08, 2020 10:28
--- NOTE | 2020-03-08 10:38 | General Progress Note ---
Subjective Respiratory: Reports: shortness of breath Allergies: Coded Allergies: PENICILLINS (Verified Allergy, Unknown, 03/06/20) Uncoded Allergies: SEAFOOD (Allergy, Unknown, 03/06/20) Objective Last 24 Hour Vital Signs Date Time Temp Pulse Resp B/P (MAP) Pulse Ox O2 Delivery O2 Flow Rate FiO2 03/08/20 09:56 89 20 96 Venturi Mask 10.0 50 86 24 85 03/08/20 09:22 145/73 03/08/20 09:00 Venturi Mask 03/08/20 08:00 96.7 81 20 145/73 (97) 94 03/08/20 08:00 82 03/08/20 04:00 76 03/08/20 04:00 98.0 77 24 138/72 (94) 94 03/08/20 00:00 72 03/08/20 00:00 97.9 74 28 144/72 (96) 95 03/07/20 21:26 95 Venturi Mask 10.0 50 03/07/20 21:21 81 20 96 Venturi Mask 10.0 50 77 20 95 03/07/20 21:00 Venturi Mask 03/07/20 20:00 97.0 77 30 145/67 (93) 95 03/07/20 20:00 74 03/07/20 17:12 73 136/69 03/07/20 17:12 136/69 03/07/20 16:00 74 03/07/20 16:00 97.6 73 28 136/69 (91) 90 03/07/20 12:00 96.4 85 30 148/68 (94) 94 03/07/20 12:00 88 Intake and Output 03/07/20 03/08/20 19:00 07:00 Intake Total 300 ml Output Total 700 ml Balance -400 ml Intake Oral 300 ml Output Urine Total 700 ml Laboratory Tests 03/07/20 11:47: POC Whole Blood Glucose 171H 03/07/20 16:52: POC Whole Blood Glucose 190H 03/08/20 05:59: POC Whole Blood Glucose 125H 03/08/20 08:50: White Blood Count 12.4H, Red Blood Count 3.95L, Hemoglobin 10.9L, Hematocrit 33.6L, Mean Corpuscular Volume 85, Mean Corpuscular Hemoglobin 27.6, Mean Corpuscular Hemoglobin Concent 32.4, Red Cell Distribution Width 14.9H, Platelet Count 264, Mean Platelet Volume 7.9, Neutrophils (%) (Auto) , Lymphocytes (%) (Auto) , Monocytes (%) (Auto) , Eosinophils (%) (Auto) , Basophils (%) (Auto) , Neutrophils % (Manual) [Pending], Lymphocytes % (Manual) [Pending], Platelet Estimate [Pending], Platelet Morphology [Pending], Sodium Level 138, Potassium Level 5.7H, Chloride Level 106, Carbon Dioxide Level 21, Anion Gap 12, Blood Urea Nitrogen 80H, Creatinine 4.4H, Estimat Glomerular Filtration Rate 16.2, Glucose Level 162H, Calcium Level 8.1L, Troponin I 0.020, Pro-B-Type Natriuretic Peptide 6969H, Thyroid Stimulating Hormone (TSH) 0.986, Free Thyroxine 0.93 Height (Feet): 5 Height (Inches): 9.00 Weight (Pounds): 228 Respiratory/Chest: crackles/rales Assessment/Plan Problem List: (1) COPD (chronic obstructive pulmonary disease) ICD Codes: J44.9 - Chronic obstructive pulmonary disease, unspecified SNOMED: 49881250 Qualifiers: Qualified Codes: J44.1 - Chronic obstructive pulmonary disease with (acute) exacerbation (2) CHF (congestive heart failure) ICD Codes: I50.9 - Heart failure, unspecified SNOMED: 60284549 Qualifiers: Qualified Codes: I50.9 - Heart failure, unspecified (3) Hypoxia ICD Codes: R09.02 - Hypoxemia SNOMED: 065815299 (4) Renal failure (ARF), acute on chronic ICD Codes: N17.9 - Acute kidney failure, unspecified; N18.9 - Chronic kidney disease, unspecified SNOMED: [id number] Qualifiers: Qualified Codes: N17.9 - Acute kidney failure, unspecified; N18.4 - Chronic kidney disease, stage 4 (severe) Status: deteriorating Assessment/Plan: arf sob on high oxygen chf copd oliguiric resp insuff diaylsis?per John Peres MD Mar 08, 2020 10:38
--- NOTE | 2020-03-08 10:51 | General Progress Note ---
Progress Note Progress Note he might need urgent life saving dialysis John Chavez MD Mar 08, 2020 10:51
[2020-03-08] MEDS ORDERED: Sodium Polystyrene Sulfonate 15gm Powder ORAL ONE (11:30)
[2020-03-08 11:32] LABS: CREATINE KINASE 280 U/L (26-308); PHOSPHORUS 6.1 MG/DL (2.5-4.9)
[2020-03-08] MEDS ORDERED: cefTRIAXone 1 GM in NS 55 ML IVPB SCH (12:00)
[2020-03-08] MEDS: HydrALAZINE 50mg tab ORAL SCH ×2 (12:06→18:53)
[2020-03-08] MEDS: Tamsulosin 0.4mg cap ORAL SCH ×2 (12:11→18:49)
--- NOTE | 2020-03-08 12:26 | Consultation ---
Consult Note Consult Note I am asked to evaluate this patient at the request of Dr. Montes De Oca renal failure and hyperkalemia Patient seen in room 211-2 Discussed with RN Discussed with Dr. Serna wire lather ER: Patient presents with 4 to 5 days of increasing dyspnea on exertion. In addition to that he has edema. 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 GENERAL APPEARANCE: Obese. HEAD AND NECK: [place] conjunctiva. HEART: Normal rate. LUNGS: Clear. ABDOMEN: Soft and nontender. EXTREMITIES: Edema of legs. NEUROLOGIC: Awake, alert, oriented x3. LABORATORY AND DIAGNOSTIC DATA: COVID test was negative. VRE was negative. WBC today is 12.4, hemoglobin 10.9, hematocrit 33.6, platelets 364. Sodium 138, potassium 5.7, chloride 106, bicarb 21, BUN 80, creatinine 4.4, glucose 162. Chest x-ray extensive opacity, consolidation throughout the lungs concerning of infection, inflammatory or pulmonary edema, right greater than left pleural effusion. Assessment/Plan Acute renal failure Possible underlying chronic kidney disease Hyperkalemia Respiratory failure: Combination of diastolic CHF, COPD, possible pneumonia Hypertension Diabetes mellitus Negative COVID-19 rapid test Suggestions Since diuretic treatment is not working, and the patient is volume overloaded and has difficulty breathing with lower extremity edema and possible ascites will aim to dialyze and do ultrafiltration. Adjust blood pressure medication. Kidney ultrasound Flomax twice daily Adjust the diet. Pulmonary toilet Afterload preload reduction Avoid nephrotoxic's Per orders Patient requires life-saving dialysis treatment and ultrafiltration at this time Rene Singh MD Mar 08, 2020 12:26
--- NOTE | 2020-03-08 13:10 | NUR ---
RD ASSESSMENT & RECOMMENDATIONS SEE CARE ACTIVITY FOR COMPLETE ASSESSMENT DAILY ESTIMATED NEEDS: Needs based on Renal dysfunction, to start HD, obesity/ 80.5kg abw 23-28 kcals/kg [id number] total kcals 1.25-1.8 g protein/kg 100-144 g total protein Fluids per MD mL/kg total fluid mLs NUTRITION DIAGNOSIS: Altered nutrition related lab values R/T ARF, DM as evidenced by elev creat (4.4 trend up), elev K (5.7), elev Phos (6.1), elev BNP (5994), elev BG and POC glu (125 190 171 139 369). CURRENT DIET:Regular -> Renal PO DIET RECOMMENDATIONS: RENAL + CCHO MED ADDITIONAL RECOMMENDATIONS: * Daily standing wt * Monitor for continuity of HD -> monitor renal fxn and lytes (elev K and phos, elev BNP, creat trend up) * Check A1C for evaluation of glycemic control * F/up w/ WC eval for sacral wound photo
--- NOTE | 2020-03-08 13:33 | Cardiac Electrophysiology PN ---
Assessment/Plan Assessment/Plan 1. Severe bilateral lower extremity edema with shortness of breath and BNP of almost 4000. EF 60%. Due to CHF due to diastolic dysfunction renal failure. Off amlodipine. Increase Lasix to 80 mg IV q 6hr. Likely will need HD 2. Hypertension. On Lasix and hydralazine 50 mg q 6hr and p.r.n. clonidine. 3. Renal failure, creatinine was 3.9 that increased to >4 with BUN 80. VIRGINIE Singh. Needs HD 4. COPD. DW RN Subjective Subjective Very SOB. ECG SR with RBBB, LAFB BNP 30K.Cr 3.5 On Lasix 80 iv bid. Cr rising. Objective Last 24 Hour Vital Signs Date Time Temp Pulse Resp B/P (MAP) Pulse Ox O2 Delivery O2 Flow Rate FiO2 03/08/20 12:06 132/86 03/08/20 12:00 97.1 73 20 132/86 (101) 100 03/08/20 09:56 89 20 96 Venturi Mask 10.0 50 86 24 85 03/08/20 09:22 145/73 03/08/20 09:00 Venturi Mask 03/08/20 08:00 96.7 81 20 145/73 (97) 94 03/08/20 08:00 82 03/08/20 04:00 76 03/08/20 04:00 98.0 77 24 138/72 (94) 94 03/08/20 00:00 72 03/08/20 00:00 97.9 74 28 144/72 (96) 95 03/07/20 21:26 95 Venturi Mask 10.0 50 03/07/20 21:21 81 20 96 Venturi Mask 10.0 50 77 20 95 03/07/20 21:00 Venturi Mask 03/07/20 20:00 97.0 77 30 145/67 (93) 95 03/07/20 20:00 74 03/07/20 17:12 73 136/69 03/07/20 17:12 136/69 03/07/20 16:00 74 03/07/20 16:00 97.6 73 28 136/69 (91) 90 Intake and Output 03/07/20 03/08/20 19:00 07:00 Intake Total 300 ml Output Total 700 ml Balance -400 ml Intake Oral 300 ml Output Urine Total 700 ml Laboratory Tests Test 03/07/20 16:52 03/08/20 05:59 03/08/20 08:30 03/08/20 08:50 POC Whole Blood Glucose 190 MG/DL (74-106) H 125 MG/DL (74-106) H Hemoglobin A1c 7.7 % (4.3-6.0) H Gamma Glutamyl Transpeptidase Pending Lactate Dehydrogenase Pending Triglycerides Level Pending Cholesterol Level Pending LDL Cholesterol Pending HDL Cholesterol Pending Cholesterol/HDL Ratio Pending White Blood Count 12.4 K/UL (4.8-10.8) H Red Blood Count 3.95 M/UL (4.70-6.10) L Hemoglobin 10.9 G/DL (14.2-18.0) L Hematocrit 33.6 % (42.0-52.0) L Mean Corpuscular Volume 85 FL (80-99) Mean Corpuscular Hemoglobin 27.6 PG (27.0-31.0) Mean Corpuscular Hemoglobin Concent 32.4 G/DL (32.0-36.0) Red Cell Distribution Width 14.9 % (11.6-14.8) H Platelet Count 264 K/UL (150-450) Mean Platelet Volume 7.9 FL (6.5-10.1) Neutrophils (%) (Auto) % (45.0-75.0) Lymphocytes (%) (Auto) % (20.0-45.0) Monocytes (%) (Auto) % (1.0-10.0) Eosinophils (%) (Auto) % (0.0-3.0) Basophils (%) (Auto) % (0.0-2.0) Differential Total Cells Counted 100 Neutrophils % (Manual) 84 % (45-75) H Lymphocytes % (Manual) 11 % (20-45) L Monocytes % (Manual) 5 % (1-10) Eosinophils % (Manual) 0 % (0-3) Basophils % (Manual) 0 % (0-2) Band Neutrophils 0 % (0-8) Platelet Estimate Adequate Platelet Morphology Normal Hypochromasia 1+ Anisocytosis 1+ Sodium Level 138 MMOL/L (136-145) Potassium Level 5.7 MMOL/L (3.5-5.1) H Chloride Level 106 MMOL/L (98-107) Carbon Dioxide Level 21 MMOL/L (21-32) Anion Gap 12 mmol/L (5-15) Blood Urea Nitrogen 80 mg/dL (7-18) H Creatinine 4.4 MG/DL (0.55-1.30) H Estimat Glomerular Filtration Rate 16.2 mL/min (>60) Glucose Level 162 MG/DL (74-106) H Uric Acid 9.0 MG/DL (2.6-7.2) H Calcium Level 8.1 MG/DL (8.5-10.1) L Phosphorus Level 6.1 MG/DL (2.5-4.9) H Magnesium Level 2.4 MG/DL (1.8-2.4) Total Creatine Kinase 280 U/L (26-308) Troponin I 0.020 ng/mL (0.000-0.056) C-Reactive Protein, Quantitative 2.3 mg/dL (0.00-0.90) H Pro-B-Type Natriuretic Peptide 5994 pg/mL (0-125) H Thyroid Stimulating Hormone (TSH) 0.986 uiU/mL (0.358-3.740) Free Thyroxine 0.93 NG/DL (0.76-1.46) Microbiology Date/Time Source Procedure Growth Status 03/06/20 13:24 Rectum - Final NO CARBAPENEM-RESISTANT ENTEROBACTERI... Complete 03/06/20 13:24 Rectum VRE Culture - Final NO VANCOMYCIN RESISTANT ENTEROCOCCUS ... Complete 03/06/20 11:40 Nasopharynx SARS-CoV-2 RdRp Gene Assay - Final Complete Objective HEAD AND NECK: Positive JVD. LUNGS: Decreased breath sounds. CARDIOVASCULAR: Regular S1 and S2 with no gallop. ABDOMEN: Soft. EXTREMITIES: 3+ pitting edema in lower extremities as well as 2+ pitting edema in right arm. Ponce Serna MD Mar 08, 2020 13:33
[2020-03-08 13:38] LABS: CHOLESTEROL 180 MG/DL (< 200); HDL CHOLESTEROL 45 MG/DL (40-60); TRIGLYCERIDES 135 MG/DL (30-150)
--- NOTE | 2020-03-08 13:45 | Consultation ---
DATE OF CONSULTATION: 03/08/2020 INFECTIOUS DISEASES CONSULTATION CONSULTING PHYSICIAN: Brett Pleitez MD. PRIMARY ATTENDING PHYSICIAN: John Chavez MD. REASON FOR CONSULTATION: Pneumonia, COPD. HISTORY OF PRESENT ILLNESS: This is a 69-year-old male admitted on March [facility], 2020 from [facility] complaining of shortness of breath that was more on exertion. The patient had desaturation with decreased O2 saturation to 88%. Chest x-ray was suspected for pneumonia and pulmonary edema. The patient developed leukocytosis today. PAST MEDICAL HISTORY: Significant for diabetes mellitus, hypertension, CHF, COPD, anemia, BPH. ALLERGIES: Allergic to penicillin, but tolerated on ceftriaxone. Allergic to seafood. MEDICATIONS: Protonix, Colace, Lasix, hydralazine, Flomax, got a dose of Kayexalate, heparin, Pulmicort inhaler, ipratropium inhaler, [place], Robitussin, dextromethorphan, diphenhydramine, morphine sulfate, clonidine. SOCIAL HISTORY: longterm resident. Denies alcohol, drug abuse, or smoking. REVIEW OF SYSTEMS: No fever. No chills. Does have shortness of breath. No nausea. No vomiting. No diarrhea. PHYSICAL EXAMINATION: VITAL SIGNS: Temperature 96.7, pulse 89, blood pressure 145/73. GENERAL APPEARANCE: Obese. HEAD AND NECK: [place] conjunctiva. HEART: Normal rate. LUNGS: Clear. ABDOMEN: Soft and nontender. EXTREMITIES: Edema of legs. NEUROLOGIC: Awake, alert, oriented x3. LABORATORY AND DIAGNOSTIC DATA: COVID test was negative. VRE was negative. WBC today is 12.4, hemoglobin 10.9, hematocrit 33.6, platelets 364. Sodium 138, potassium 5.7, chloride 106, bicarb 21, BUN 80, creatinine 4.4, glucose 162. Chest x-ray extensive opacity, consolidation throughout the lungs concerning of infection, inflammatory or pulmonary edema, right greater than left pleural effusion. IMPRESSION: 1. Pneumonia. 2. COPD. 3. Pulmonary edema. 4. CHF. 5. Diabetes mellitus. 6. Hypertension. 7. Renal failure with hyperkalemia. 8. Anemia. 9. BPH. RECOMMENDATION: May benefit from antibiotic. We will start the patient on ceftriaxone. We will follow up the culture. At the end of my exam, I thank Dr. Chavez for involving me in the care of this patient. Brett Pleitez M.D. DR: Lefty JOB#: [id number] CC: BASHIR
[2020-03-08] MEDS: Docusate 100mg cap ORAL SCH ×2 (15:04→18:49)
[2020-03-08] MEDS ORDERED: Lidocaine 1% Plain 30 ml INJ PRN (15:15)
[2020-03-08] MEDS ORDERED: Heparin1,000 units/500ml Premix(Conc:2 units/ml) IV PRN (15:15)
--- NOTE | 2020-03-08 16:24 | NUR ---
CASE MANAGEMENT:REVIEW BIBA FROM [facility]; SOB. 88% ON RA SI: COPD. PNA. ACUTE RENAL FAILURE 97.6 77 16 148/86 96% ON NRB 10L BUN+50 CR+3.9 IS: DUONEB HHN Q15 MIN IV LASIX X2 IV DECADRON IV AZITHROMYCIN IV ROCEPHIN NORVASC PO : TO TELEMETRY
--- NOTE | 2020-03-08 16:59 | Diagnostic Imaging Report ---
Indication: Abnormal renal function tests Technique: Grayscale and duplex images of the kidneys, retroperitoneum, and bladder were obtained. Comparison: none Findings: Right kidney measures 11.6 cm in length. Left kidney measures 11.1 cm in length. Both kidneys demonstrate normal echogenicity. No hydronephrosis. There are bilateral small cysts. There is questionably a small calcification within the left renal sinus.. Normal inferior vena cava. Bladder is normal. Impression: Negative for hydronephrosis Possible nonobstructive left renal calculus Incidental finding left renal cysts.
[2020-03-08] MEDS ORDERED: D5 1/2NS 1000ml IV ONE (17:17)
--- NOTE | 2020-03-08 18:09 | Pre-Procedure Note/Attestation ---
Pre-Procedure Note/Attestation Complete Prior to Procedure Planned Procedure: not applicable Procedure Narrative: omi Indications for Procedure Pre-Operative Diagnosis: renal failure Attestation I attest that I discussed the nature of the procedure; its benefits; risks and complications; and alternatives (and the risks and benefits of such alternatives), prior to the procedure, with the patient (or the patient's legal automotive sales representative). I attest that, if there was a reasonable possibility of needing a blood tra nsfusion, the patient (or the patient's legal automotive sales representative) was given the [facility] standardized written summary, pursuant to the Cody Adilson Blood Safety Act ([place] Health and Safety Code # 1645, as amended). I attest that I re-evaluated the patient just prior to the surgery and that there has been no change in the patient's H&P, except as documented below: Phillip Martinez MD Mar 08, 2020 18:09
--- NOTE | 2020-03-08 18:10 | Brief Operative Note ---
Immediate Post Operative Note Operative Note Pre-op Diagnosis: renal failure Procedure: R groin omi Post-op Diagnosis: same as pre-op Surgeon: Wolf Ellis Anesthesia: local Specimen: none Complications: none Fluids: none Implant(s) used?: No Phillip Ellis MD Mar 08, 2020 18:10
--- NOTE | 2020-03-08 18:41 | NUR ---
RADIOLOGY NOTE: RIGHT FEMORAL NON TUNNELED DIALYSIS CATHETER PLACEMENT BY DR. ADRIANA MAHMOOD. FA
--- NOTE | 2020-03-08 19:15 | NUR ---
NURSE NOTES: RECEIVED REPORT FROM BELKIS GARY. PT IN BED ALERT/ORIENTED X4, ABLE TO MAKE NEEDS KNOWN. ON O2 VIA VENTURI MASK AT 50% 10L/MIN SATING AT 95%. 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 RIGHT FEMORAL ARMEN CATH IN PLACE. BED IN LOW POSITION & LOCKED, SIDE RAILS UP X2. BED IN LOW POSITION & LOCKED. CALL LIGHT WITH IN REACH. BED ALARM ON.
--- NOTE | 2020-03-08 19:22 | NUR ---
NURSE HAND-OFF REPORT: Important Events on Shift:[Dialysis Catheter placed at bedside, omi. Did not give last Rocephin, Per Dr. Esqueda ok to start when cathater placed. ] Patient Status: [in bed resting, nonrebreather on at 15 liters.] Diet: [Renal] Pending Orders: [] Pending Results/Labs:[] Pending MD notification:[] Latest Vital Signs: Temperature 96.6 , Pulse 84 , B/P 138 /73 , Respiratory Rate 20 , O2 SAT 95 , Venturi Mask, O2 Flow Rate 10.0 . Vital Sign Comment: [stable] EKG Rhythm: SR W/ BBB Rhythm change?: N MD Notified?: N - MD Response: Latest Ryan Fall Score: 50 Fall Risk: High Risk Safety Measures: Call light Within Reach, Bed Alarm Zone 1, Side Rails Side Rails x2, Bed position Low and Locked. Fall Precautions: Yellow Socks Yellow Gown Patient Fall Education Report given to [Sobia RN].
[2020-03-08] MEDS: cefTRIAXone 1 GM in NS 55 ML IVPB SCH (21:43)
[2020-03-09] VITALS: BP 128/71
[2020-03-09] MEDS: HydrALAZINE 50mg tab ORAL SCH ×4 (00:43→17:04)
[2020-03-09] MEDS: Albuterol/Ipratropium 3ml neb HHN PRN (03:25)
[2020-03-09 04:00] VITALS: BP 146/66
[2020-03-09] MEDS: NovoLOG Insulin Flexpen SUBQ SCH ×4 (06:30→21:00)
[2020-03-09 07:04] LABS: HEMATOCRIT 34.7 % (42.0-52.0); HEMOGLOBIN 10.8 G/DL (14.2-18.0); MEAN CORPUSCULAR VOLUME 89 FL (80-99); PLATELET COUNT 247 K/UL (150-450); RED BLOOD COUNT 3.91 M/UL (4.70-6.10); RED CELL DISTRIBUTION WIDTH 15.2 % (11.6-14.8); WHITE BLOOD COUNT 10.2 K/UL (4.8-10.8)
[2020-03-09 07:41] LABS: ALBUMIN 2.9 G/DL (3.4-5.0); ALBUMIN/GLOBULIN RATIO 0.7 (1.0-2.7); BILIRUBIN,TOTAL 0.3 MG/DL (0.2-1.0); CALCIUM 8.4 MG/DL (8.5-10.1); CREATININE 4.4 MG/DL (0.55-1.30); PHOSPHORUS 7.2 MG/DL (2.5-4.9); POTASSIUM 5.1 MMOL/L (3.5-5.1)
--- NOTE | 2020-03-09 07:45 | NUR ---
NURSE NOTES: Received report from Sobia/RN, Observed patient awake, sitting on the edge of the bed. Without Venturi mask, Noted SOB, reminded him to keep the mask on all the time. Able to make needs known, Denies pain at this time. Bed is in lowest position and locked, Call light within reach, Encouraged to use call light when needed. Will continue plan of care.
--- NOTE | 2020-03-09 07:50 | NUR ---
NURSE HAND-OFF REPORT: Important Events on Shift:N/A Patient Status: STABLE Diet: RENAL Pending Orders: [] Pending Results/Labs:[] Pending MD notification:[] Latest Vital Signs: Temperature 96.3 , Pulse 85 , B/P 144 /65 , Respiratory Rate 20 , O2 SAT 94 , Venturi Mask, O2 Flow Rate 15.0 . Vital Sign Comment: [] EKG Rhythm: SR W/ BBB Rhythm change?: N MD Notified?: N - MD Response: Latest Ryan Fall Score: 50 Fall Risk: High Risk Safety Measures: Call light Within Reach, Bed Alarm Zone 1, Side Rails Side Rails x2, Bed position Low and Locked. Fall Precautions: Yellow Socks Yellow Gown Patient Fall Education Report given to BELKIS ORTIZ.
[2020-03-09 08:00] VITALS: BP 145/72
[2020-03-09] MEDS: Budesonide HHN 0.25mg/2ml ud HHN SCH ×2 (08:24→21:26)
[2020-03-09] MEDS: Vitamin B Complex Tab ORAL SCH (09:36)
[2020-03-09] MEDS: Tamsulosin 0.4mg cap ORAL SCH ×2 (09:36→17:03)
[2020-03-09] MEDS: Docusate 100mg cap ORAL SCH ×3 (09:37→17:03)
[2020-03-09] MEDS: Heparin 5000 units/ml inj SUBQ SCH ×2 (09:37→17:07)
--- NOTE | 2020-03-09 10:14 | General Progress Note ---
Subjective ROS Limited/Unobtainable: Yes Allergies: Coded Allergies: PENICILLINS (Verified Allergy, Unknown, 03/06/20) Uncoded Allergies: SEAFOOD (Allergy, Unknown, 03/06/20) Objective Last 24 Hour Vital Signs Date Time Temp Pulse Resp B/P (MAP) Pulse Ox O2 Delivery O2 Flow Rate FiO2 03/09/20 08:25 95 Non-Rebreather 15.0 100 03/09/20 08:25 80 22 98 Venturi Mask 14.0 55 78 20 95 03/09/20 08:00 96.3 85 20 145/72 (96) 93 03/09/20 05:57 144/65 03/09/20 04:00 79 03/09/20 04:00 96.3 85 20 146/66 (92) 94 03/09/20 03:26 80 22 97 Venturi Mask 14.0 55 78 22 95 03/09/20 00:43 128/77 03/09/20 00:00 70 03/09/20 00:00 97.3 75 20 128/71 (90) 98 03/08/20 22:00 97.2 76 20 143/73 (96) 100 03/08/20 21:00 Venturi Mask 03/08/20 20:32 97 Non-Rebreather 15.0 100 03/08/20 20:31 88 22 98 Non-Rebreather 14.0 55 84 22 96 03/08/20 20:00 96.7 76 20 143/73 (96) 100 03/08/20 20:00 75 03/08/20 18:53 138/73 03/08/20 16:00 84 03/08/20 16:00 96.6 83 20 167/93 (117) 95 03/08/20 12:06 132/86 03/08/20 12:00 97.1 73 20 132/86 (101) 100 03/08/20 12:00 88 Intake and Output 03/08/20 03/09/20 19:00 07:00 Intake Total 500 ml 200 ml Output Total 500 ml 600 ml Balance 0 ml -400 ml Intake Oral 500 ml 200 ml Output Urine Total 500 ml 600 ml # Voids 2 Laboratory Tests 03/08/20 21:47: POC Whole Blood Glucose 135H 03/09/20 05:56: POC Whole Blood Glucose 122H 03/09/20 06:32: White Blood Count 10.2, Red Blood Count 3.91L, Hemoglobin 10.8L, Hematocrit 34.7L, Mean Corpuscular Volume 89, Mean Corpuscular Hemoglobin 27.7, Mean Corpuscular Hemoglobin Concent 31.3L, Red Cell Distribution Width 15.2H, Platele t Count 247, Mean Platelet Volume 7.5, Neutrophils (%) (Auto) , Lymphocytes (%) (Auto) , Monocytes (%) (Auto) , Eosinophils (%) (Auto) , Basophils (%) (Auto) , Differential Total Cells Counted 100, Neutrophils % (Manual) 91H, Lymphocytes % (Manual) 4L, Monocytes % (Manual) 5, Eosinophils % (Manual) 0, Basophils % (Manual) 0, Band Neutrophils 0, Platelet Estimate Adequate, Platelet Morphology Normal, Hypochromasia 1+, Anisocytosis 1+, Sodium Level 137, Potassium Level 5.1, Chloride Level 106, Carbon Dioxide Level 19L, Anion Gap 12, Blood Urea Nitrogen 91H, Creatinine 4.4H, Estimat Glomerular Filtration Rate 16.2, Glucose Level 119H, Uric Acid 9.4H, Calcium Level 8.4L, Phosphorus Level 7.2H, Magnesium Level 2.3, Total Bilirubin 0.3, Aspartate Amino Transf (AST/SGOT) 26, Alanine Aminotransferase (ALT/SGPT) 21, Alkaline Phosphatase 100, C-Reactive Protein, Quantitative 3.1H, Pro-B-Type Natriuretic Peptide 5852H, Total Protein 7.2, Albumin 2.9L, Globulin 4.3, Albumin/Globulin Ratio 0.7L Height (Feet): 5 Height (Inches): 9.00 Weight (Pounds): 228 Assessment/Plan Problem List: (1) COPD (chronic obstructive pulmonary disease) ICD Codes: J44.9 - Chronic obstructive pulmonary disease, unspecified SNOMED: [id number] Qualifiers: Qualified Codes: J44.1 - Chronic obstructive pulmonary disease with (acute) exacerbation (2) CHF (congestive heart failure) ICD Codes: I50.9 - Heart failure, unspecified SNOMED: 07532943 Qualifiers: Qualified Codes: I50.9 - Heart failure, unspecified (3) Hypoxia ICD Codes: R09.02 - Hypoxemia SNOMED: 658894072 (4) Renal failure (ARF), acute on chronic ICD Codes: N17.9 - Acute kidney failure, unspecified; N18.9 - Chronic kidney disease, unspecified SNOMED: [id number] Qualifiers: Qualified Codes: N17.9 - Acute kidney failure, unspecified; N18.4 - Chronic kidney disease, stage 4 (severe) Status: deteriorating Assessment/Plan: arf dr dawn ordered diaylsis still on venturi mask sob on high oxygen chf copd oliguiric resp insuff John Chavez MD Mar 09, 2020 10:14
--- NOTE | 2020-03-09 10:35 | Pulmonology Progress Note ---
Subjective ROS Limited/Unobtainable: Yes Interval Events: Feeling better; On HD Constitutional: Reports: no symptoms HEENT: Repors: no symptoms Respiratory: Reports: no symptoms Cardiovascular: Reports: no symptoms Gastrointestinal/Abdominal: Reports: no symptoms Genitourinary: Reports: no symptoms Allergies: Coded Allergies: PENICILLINS (Verified Allergy, Unknown, 03/06/20) Uncoded Allergies: SEAFOOD (Allergy, Unknown, 03/06/20) Objective Last 24 Hour Vital Signs Date Time Temp Pulse Resp B/P (MAP) Pulse Ox O2 Delivery O2 Flow Rate FiO2 03/09/20 08:25 95 Non-Rebreather 15.0 100 03/09/20 08:25 80 22 98 Venturi Mask 14.0 55 78 20 95 03/09/20 08:00 96.3 85 20 145/72 (96) 93 03/09/20 05:57 144/65 03/09/20 04:00 79 03/09/20 04:00 96.3 85 20 146/66 (92) 94 03/09/20 03:26 80 22 97 Venturi Mask 14.0 55 78 22 95 03/09/20 00:43 128/77 03/09/20 00:00 70 03/09/20 00:00 97.3 75 20 128/71 (90) 98 03/08/20 22:00 97.2 76 20 143/73 (96) 100 03/08/20 21:00 Venturi Mask 03/08/20 20:32 97 Non-Rebreather 15.0 100 03/08/20 20:31 88 22 98 Non-Rebreather 14.0 55 84 22 96 03/08/20 20:00 96.7 76 20 143/73 (96) 100 03/08/20 20:00 75 03/08/20 18:53 138/73 03/08/20 16:00 84 03/08/20 16:00 96.6 83 20 167/93 (117) 95 03/08/20 12:06 132/86 03/08/20 12:00 97.1 73 20 132/86 (101) 100 03/08/20 12:00 88 Intake and Output 03/08/20 03/09/20 19:00 07:00 Intake Total 500 ml 200 ml Output Total 500 ml 600 ml Balance 0 ml -400 ml Intake Oral 500 ml 200 ml Output Urine Total 500 ml 600 ml # Voids 2 General Appearance: no acute distress HEENT: normocephalic Respiratory: chest wall non-tender, lungs clear Cardiovascular: normal peripheral pulses, normal rate Abdomen: normal bowel sounds Microbiology Date/Time Source Procedure Growth Status 03/06/20 13:24 Rectum - Final NO CARBAPENEM-RESISTANT ENTEROBACTERI... Complete 03/06/20 13:24 Rectum VRE Culture - Final NO VANCOMYCIN RESISTANT ENTEROCOCCUS ... Complete 03/06/20 13:24 Nasal Nares MRSA Culture - Final Staphylococcus Aureus - Mrsa Complete 03/06/20 11:40 Nasopharynx SARS-CoV-2 RdRp Gene Assay - Final Complete Laboratory Tests 03/08/20 21:47: POC Whole Blood Glucose 135H 03/09/20 05:56: POC Whole Blood Glucose 122H 03/09/20 06:32: White Blood Count 10.2, Red Blood Count 3.91L, Hemoglobin 10.8L, Hematocrit 34.7L, Mean Corpuscular Volume 89, Mean Corpuscular Hemoglobin 27.7, Mean Corpuscular Hemoglobin Concent 31.3L, Red Cell Distribution Width 15.2H, Platelet Count 247, Mean Platelet Volume 7.5, Neutrophils (%) (Auto) , Lymphocytes (%) (Auto) , Monocytes (%) (Auto) , Eosinophils (%) (Auto) , Basophi ls (%) (Auto) , Differential Total Cells Counted 100, Neutrophils % (Manual) 91H , Lymphocytes % (Manual) 4L, Monocytes % (Manual) 5, Eosinophils % (Manual) 0, Basophils % (Manual) 0, Band Neutrophils 0, Platelet Estimate Adequate, Platelet Morphology Normal, Hypochromasia 1+, Anisocytosis 1+, Sodium Level 137, Potassium Level 5.1, Chloride Level 106, Carbon Dioxide Level 19L, Anion Gap 12, Blood Urea Nitrogen 91H, Creatinine 4.4H, Estimat Glomerular Filtration Rate 16.2, Glucose Level 119H, Uric Acid 9.4H, Calcium Level 8.4L, Phosphorus Level 7.2H, Magnesium Level 2.3, Total Bilirubin 0.3, Aspartate Amino Transf (AST/SGOT) 26, Alanine Aminotransferase (ALT/SGPT) 21, Alkaline Phosphatase 100, C-Reactive Protein, Quantitative 3.1H, Pro-B-Type Natriuretic Peptide 5852H, Total Protein 7.2, Albumin 2.9L, Globulin 4.3, Albumin/Globulin Ratio 0.7L Current Medications Medications (Trade) Dose Ordered Sig/Melissa Route PRN Reason Start Time Stop Time Status Last Admin Dose Admin Acetaminophen/ Hydrocodone Bitart ([place] 5/325) 1 tab Q4H PRN ORAL Moderate Pain (Pain Scale 4-6) 03/06/20 19:00 03/13/20 18:59 Albuterol/ Ipratropium (Albuterol/ Ipratropium) 3 ml Q6H PRN HHN Shortness of Breath 03/06/20 18:15 03/11/20 18:14 03/09/20 03:25 Budesonide (Pulmicort) 0.25 mg EVERY 12 HOURS HHN 03/06/20 21:00 06/04/20 20:59 03/09/20 08:24 Ceftriaxone Sodium 1 gm/ Sodium Chloride 55 ml @ 110 mls/hr Q24H IVPB 03/08/20 17:00 03/15/20 16:59 03/08/20 21:43 Clonidine HCl (Catapres Tab) 0.1 mg Q4H PRN ORAL SBP>170 03/06/20 16:15 06/04/20 16:14 Dextrose (Dextrose 50%) 25 ml Q30M PRN IV Hypoglycemia 03/06/20 20:00 06/04/20 19:59 Dextrose (Dextrose 50%) 50 ml Q30M PRN IV Hypoglycemia 03/06/20 20:00 06/04/20 19:59 Diphenhydramine HCl (Benadryl) 50 mg Q6H PRN ORAL Itching 03/06/20 19:00 04/05/20 18:59 Docusate Sodium (Colace) 100 mg THREE TIMES A DAY ORAL 03/08/20 13:00 04/07/20 12:59 03/09/20 09:37 Furosemide (Lasix) 80 mg Q6HR IV 03/08/20 12:00 04/07/20 11:59 03/09/20 05:58 Guaifenesin/ Dextromethorphan (Robitussin DM Syrup) 10 ml Q4H PRN ORAL For Cough 03/06/20 19:00 06/04/20 18:59 Heparin Sodium (Porcine) (Heparin 5000 units/ml) 5,000 units BID SUBQ 03/07/20 09:00 04/21/20 08:59 03/08/20 18:50 Heparin Sodium/ Sodium Chloride (Heparin 1000 units/500ml Premix) 1,000 unit ONCE PRN IV catheter placement 03/08/20 15:15 03/10/20 15:14 Hydralazine HCl (Apresoline) 50 mg Q6HR ORAL 03/08/20 12:00 06/04/20 17:59 03/09/20 05:57 Insulin Aspart (NovoLOG) BEFORE MEALS AND HS SUBQ 03/06/20 21:00 06/04/20 20:59 03/08/20 16:54 Ipratropium [place] (Atrovent) 500 mcg Q4H PRN HHN Shortness of Breath 03/06/20 19:00 03/11/20 18:59 Lidocaine HCl (Xylocaine 1% 30ml) 30 ml ONCE PRN INJ cathether placement 03/08/20 15:15 03/10/20 15:14 Morphine Sulfate (Morphine Sulfate) 2 mg Q4H PRN IVP For Pain 03/06/20 18:45 03/13/20 18:44 Pantoprazole (Protonix) 40 mg EVERY 12 HOURS ORAL 03/08/20 21:00 04/07/20 20:59 03/09/20 09:36 Phenol/Menthol (Chloraseptic) 1 spray TIDPRN PRN ORAL For Pain 03/06/20 19:00 06/04/20 18:59 Sevelamer Carbonate (Renvela) 1,600 mg THREE TIMES A DAY ORAL 03/09/20 09:00 06/07/20 08:59 03/09/20 09:36 Tamsulosin HCl (Flomax) 0.4 mg BID ORAL 03/08/20 11:30 04/07/20 11:29 03/09/20 09:36 Vitamin B Complex (Vitamin B Complex) 1 tab DAILY ORAL 03/07/20 09:00 06/05/20 08:59 03/09/20 09:36 Assessment/Plan Assessment/Plan IMPRESSION: 1. Pulmonary infiltrates bilaterally, suspect pulmonary edema. 2. Hypertension. 3. Diabetes mellitus. 4. Renal failure. 5. COPD. 6. Negative COVID 19 rapid test DISCUSSION: Continue breathing treatments with albuterol and Atrovent Negaqtive COVID 19 Broad-spectrum antibiotics will be given. The patient has received Decadron as well and diuretics. I will follow carefully. HD today Will dc steroids Jie Rivera Omar Syed MD Mar 09, 2020 10:35
--- NOTE | 2020-03-09 10:59 | Diagnostic Imaging Report ---
Indication: Acute renal failure Technique: Procedure performed at bedside. Procedural timeout performed. Total sterile technique, including sterile probe cover and sterile gel, sterile gloves, hand hygiene, hat, mask, sterile gown, large sterile drape, and preparation with 2% chlorhexidine utilized. Local anesthesia with 1% lidocaine. Ultrasound reveals patent compressible ] common femoral vein. Under real-time ultrasound guidance with real-time visualization of the entry into the vein, puncture right common femoral vein using 21-gauge needle, passage 1 8 guidewire, insertion 4 [place] micropuncture introducer, passage 0.035 guidewire, over which was passed serial dilators and then a 13 [place] 30 cm triple-lumen temporary dialysis catheter. Guidewire was removed. Catheter ports were aspirated and flushed. The catheter was fixed to the skin. Patient tolerated procedure well. Abdominal radiograph was obtained, documents catheter tip position at the innominate venous confluence. Comparison: none Findings: As above Impression: Successful bedside placement of right femoral temporary dialysis catheter, as described.
--- NOTE | 2020-03-09 11:15 | NUR ---
PT NOTE Attempted to see patient for PT treatment. Patient currently on dialysis, will follow.
--- NOTE | 2020-03-09 11:56 | Cardiac Electrophysiology PN ---
Assessment/Plan Assessment/Plan 1. Severe bilateral lower extremity edema with shortness of breath and BNP of almost 4000. EF 60%. Due to CHF due to diastolic dysfunction renal failure. Now on HD and Lasix 80 iv q 6 h 2. Hypertension. On HD and hydralazine 50 mg q 6hr and p.r.n. clonidine. 3. Renal failure, creatinine was 3.9 that increased to >[address] DW Dr. Singh. Started on HD 4. COPD. DW RN Subjective Subjective ECG SR with RBBB, LAFB BNP 30K.Cr 3.5 Got RFV Janusz and now getting HD Objective Last 24 Hour Vital Signs Date Time Temp Pulse Resp B/P (MAP) Pulse Ox O2 Delivery O2 Flow Rate FiO2 03/09/20 08:25 95 Non-Rebreather 15.0 100 03/09/20 08:25 80 22 98 Venturi Mask 14.0 55 78 20 95 03/09/20 08:00 96.3 85 20 145/72 (96) 93 03/09/20 05:57 144/65 03/09/20 04:00 79 03/09/20 04:00 96.3 85 20 146/66 (92) 94 03/09/20 03:26 80 22 97 Venturi Mask 14.0 55 78 22 95 03/09/20 00:43 128/77 03/09/20 00:00 70 03/09/20 00:00 97.3 75 20 128/71 (90) 98 03/08/20 22:00 97.2 76 20 143/73 (96) 100 03/08/20 21:00 Venturi Mask 03/08/20 20:32 97 Non-Rebreather 15.0 100 03/08/20 20:31 88 22 98 Non-Rebreather 14.0 55 84 22 96 03/08/20 20:00 96.7 76 20 143/73 (96) 100 03/08/20 20:00 75 03/08/20 18:53 138/73 03/08/20 16:00 84 03/08/20 16:00 96.6 83 20 167/93 (117) 95 03/08/20 12:06 132/86 03/08/20 12:00 97.1 73 20 132/86 (101) 100 03/08/20 12:00 88 Intake and Output 03/08/20 03/09/20 19:00 07:00 Intake Total 500 ml 200 ml Output Total 500 ml 600 ml Balance 0 ml -400 ml Intake Oral 500 ml 200 ml Output Urine Total 500 ml 600 ml # Voids 2 Laboratory Tests Test 03/08/20 21:47 03/09/20 05:56 03/09/20 06:31 03/09/20 06:32 POC Whole Blood Glucose 135 MG/DL (74-106) H 122 MG/DL (74-106) H Hepatitis B Surface Antigen Pending White Blood Count 10.2 K/UL (4.8-10.8) Red Blood Count 3.91 M/UL (4.70-6.10) L Hemoglobin 10.8 G/DL (14.2-18.0) L Hematocrit 34.7 % (42.0-52.0) L Mean Corpuscular Volume 89 FL (80-99) Mean Corpuscular Hemoglobin 27.7 PG (27.0-31.0) Mean Corpuscular Hemoglobin Concent 31.3 G/DL (32.0-36.0) L Red Cell Distribution Width 15.2 % (11.6-14.8) H Platelet Count 247 K/UL (150-450) Mean Platelet Volume 7.5 FL (6.5-10.1) Neutrophils (%) (Auto) % (45.0-75.0) Lymphocytes (%) (Auto) % (20.0-45.0) Monocytes (%) (Auto) % (1.0-10.0) Eosinophils (%) (Auto) % (0.0-3.0) Basophils (%) (Auto) % (0.0-2.0) Differential Total Cells Counted 100 Neutrophils % (Manual) 91 % (45-75) H Lymphocytes % (Manual) 4 % (20-45) L Monocytes % (Manual) 5 % (1-10) Eosinophils % (Manual) 0 % (0-3) Basophils % (Manual) 0 % (0-2) Band Neutrophils 0 % (0-8) Platelet Estimate Adequate Platelet Morphology Normal Hypochromasia 1+ Anisocytosis 1+ Sodium Level 137 MMOL/L (136-145) Potassium Level 5.1 MMOL/L (3.5-5.1) Chloride Level 106 MMOL/L (98-107) Carbon Dioxide Level 19 MMOL/L (21-32) L Anion Gap 12 mmol/L (5-15) Blood Urea Nitrogen 91 mg/dL (7-18) H Creatinine 4.4 MG/DL (0.55-1.30) H Estimat Glomerular Filtration Rate 16.2 mL/min (>60) Glucose Level 119 MG/DL (74-106) H Uric Acid 9.4 MG/DL (2.6-7.2) H Calcium Level 8.4 MG/DL (8.5-10.1) L Phosphorus Level 7.2 MG/DL (2.5-4.9) H Magnesium Level 2.3 MG/DL (1.8-2.4) Total Bilirubin 0.3 MG/DL (0.2-1.0) Aspartate Amino Transf (AST/SGOT) 26 U/L (15-37) Alanine Aminotransferase (ALT/SGPT) 21 U/L (12-78) Alkaline Phosphatase 100 U/L (46-116) C-Reactive Protein, Quantitative 3.1 mg/dL (0.00-0.90) H Pro-B-Type Natriuretic Peptide 5852 pg/mL (0-125) H Total Protein 7.2 G/DL (6.4-8.2) Albumin 2.9 G/DL (3.4-5.0) L Globulin 4.3 g/dL Albumin/Globulin Ratio 0.7 (1.0-2.7) L Microbiology Date/Time Source Procedure Growth Status 03/06/20 13:24 Rectum - Final NO CARBAPENEM-RESISTANT ENTEROBACTERI... Complete 03/06/20 13:24 Rectum VRE Culture - Final NO VANCOMYCIN RESISTANT ENTEROCOCCUS ... Complete 03/06/20 13:24 Nasal Nares MRSA Culture - Final Staphylococcus Aureus - Mrsa Complete Objective HEAD AND NECK: Positive JVD. LUNGS: Decreased breath sounds. CARDIOVASCULAR: Regular S1 and S2 with no gallop. ABDOMEN: Soft. EXTREMITIES: 3+ pitting edema in lower extremities as well as 2+ pitting edema in right arm. RFV Ponce Wesley MD Mar 09, 2020 11:56
[2020-03-09 12:00] VITALS: BP 135/72
--- NOTE | 2020-03-09 12:13 | Infectious Diseases Prog Note ---
Assessment/Plan Assessment/Plan IMPRESSION: 1. Pneumonia. 2. COPD. 3. Pulmonary edema. 4. CHF. 5. Diabetes mellitus. 6. Hypertension. 7. Renal failure with hyperkalemia. 8. Anemia. 9. BPH. 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 We will follow up the cultures. Subjective ROS Limited/Unobtainable: Yes Constitutional: Denies: fever Cardiovascular: Reports: other - had quiton's catheter placement Genitourinary: Reports: other - start on HD Allergies: Coded Allergies: PENICILLINS (Verified Allergy, Unknown, 03/06/20) Uncoded Allergies: SEAFOOD (Allergy, Unknown, 03/06/20) Objective Last 24 Hour Vital Signs Date Time Temp Pulse Resp B/P (MAP) Pulse Ox O2 Delivery O2 Flow Rate FiO2 03/09/20 08:25 95 Non-Rebreather 15.0 100 03/09/20 08:25 80 22 98 Venturi Mask 14.0 55 78 20 95 03/09/20 08:00 96.3 85 20 145/72 (96) 93 03/09/20 05:57 144/65 03/09/20 04:00 79 03/09/20 04:00 96.3 85 20 146/66 (92) 94 03/09/20 03:26 80 22 97 Venturi Mask 14.0 55 78 22 95 03/09/20 00:43 128/77 03/09/20 00:00 70 03/09/20 00:00 97.3 75 20 128/71 (90) 98 03/08/20 22:00 97.2 76 20 143/73 (96) 100 03/08/20 21:00 Venturi Mask 03/08/20 20:32 97 Non-Rebreather 15.0 100 03/08/20 20:31 88 22 98 Non-Rebreather 14.0 55 84 22 96 03/08/20 20:00 96.7 76 20 143/73 (96) 100 03/08/20 20:00 75 03/08/20 18:53 138/73 03/08/20 16:00 84 03/08/20 16:00 96.6 83 20 167/93 (117) 95 Height (Feet): 5 Height (Inches): 9.00 Weight (Pounds): 228 HEENT: mucous membranes moist Respiratory/Chest: decreased breath sounds, other - oxygen by mask Cardiovascular: normal rate, other - R femoral Janusz catheter Abdomen: soft, non tender Extremities: other - edema of legs Neurologic/Psychiatric: responsive, other - drowsy Microbiology Date/Time Source Procedure Growth Status 03/06/20 13:24 Rectum - Final NO CARBAPENEM-RESISTANT ENTEROBACTERI... Complete 03/06/20 13:24 Rectum VRE Culture - Final NO VANCOMYCIN RESISTANT ENTEROCOCCUS ... Complete 03/06/20 13:24 Nasal Nares MRSA Culture - Final Staphylococcus Aureus - Mrsa Complete Laboratory Tests Test 03/08/20 21:47 03/09/20 05:56 03/09/20 06:31 03/09/20 06:32 POC Whole Blood Glucose 135 MG/DL (74-106) H 122 MG/DL (74-106) H Hepatitis B Surface Antigen Pending White Blood Count 10.2 K/UL (4.8-10.8) Red Blood Count 3.91 M/UL (4.70-6.10) L Hemoglobin 10.8 G/DL (14.2-18.0) L Hematocrit 34.7 % (42.0-52.0) L Mean Corpuscular Volume 89 FL (80-99) Mean Corpuscular Hemoglobin 27.7 PG (27.0-31.0) Mean Corpuscular Hemoglobin Concent 31.3 G/DL (32.0-36.0) L Red Cell Distribution Width 15.2 % (11.6-14.8) H Platelet Count 247 K/UL (150-450) Mean Platelet Volume 7.5 FL (6.5-10.1) Neutrophils (%) (Auto) % (45.0-75.0) Lymphocytes (%) (Auto) % (20.0-45.0) Monocytes (%) (Auto) % (1.0-10.0) Eosinophils (%) (Auto) % (0.0-3.0) Basophils (%) (Auto) % (0.0-2.0) Differential Total Cells Counted 100 Neutrophils % (Manual) 91 % (45-75) H Lymphocytes % (Manual) 4 % (20-45) L Monocytes % (Manual) 5 % (1-10) Eosinophils % (Manual) 0 % (0-3) Basophils % (Manual) 0 % (0-2) Band Neutrophils 0 % (0-8) Platelet Estimate Adequate Platelet Morphology Normal Hypochromasia 1+ Anisocytosis 1+ Sodium Level 137 MMOL/L (136-145) Potassium Level 5.1 MMOL/L (3.5-5.1) Chloride Level 106 MMOL/L (98-107) Carbon Dioxide Level 19 MMOL/L (21-32) L Anion Gap 12 mmol/L (5-15) Blood Urea Nitrogen 91 mg/dL (7-18) H Creatinine 4.4 MG/DL (0.55-1.30) H Estimat Glomerular Filtration Rate 16.2 mL/min (>60) Glucose Level 119 MG/DL (74-106) H Uric Acid 9.4 MG/DL (2.6-7.2) H Calcium Level 8.4 MG/DL (8.5-10.1) L Phosphorus Level 7.2 MG/DL (2.5-4.9) H Magnesium Level 2.3 MG/DL (1.8-2.4) Total Bilirubin 0.3 MG/DL (0.2-1.0) Aspartate Amino Transf (AST/SGOT) 26 U/L (15-37) Alanine Aminotransferase (ALT/SGPT) 21 U/L (12-78) Alkaline Phosphatase 100 U/L (46-116) C-Reactive Protein, Quantitative 3.1 mg/dL (0.00-0.90) H Pro-B-Type Natriuretic Peptide 5852 pg/mL (0-125) H Total Protein 7.2 G/DL (6.4-8.2) Albumin 2.9 G/DL (3.4-5.0) L Globulin 4.3 g/dL Albumin/Globulin Ratio 0.7 (1.0-2.7) L Test 03/09/20 11:58 POC Whole Blood Glucose 132 MG/DL (74-106) H Current Medications Medications (Trade) Dose Ordered Sig/Melissa Route PRN Reason Start Time Stop Time Status Last Admin Dose Admin Acetaminophen/ Hydrocodone Bitart ([place] 5/325) 1 tab Q4H PRN ORAL Moderate Pain (Pain Scale 4-6) 03/06/20 19:00 03/13/20 18:59 Albuterol/ Ipratropium (Albuterol/ Ipratropium) 3 ml Q6H PRN HHN Shortness of Breath 03/06/20 18:15 03/11/20 18:14 03/09/20 03:25 Budesonide (Pulmicort) 0.25 mg EVERY 12 HOURS HHN 03/06/20 21:00 06/04/20 20:59 03/09/20 08:24 Ceftriaxone Sodium 1 gm/ Sodium Chloride 55 ml @ 110 mls/hr Q24H IVPB 03/08/20 17:00 03/15/20 16:59 03/08/20 21:43 Clonidine HCl (Catapres Tab) 0.1 mg Q4H PRN ORAL SBP>170 03/06/20 16:15 06/04/20 16:14 Dextrose (Dextrose 50%) 25 ml Q30M PRN IV Hypoglycemia 03/06/20 20:00 06/04/20 19:59 Dextrose (Dextrose 50%) 50 ml Q30M PRN IV Hypoglycemia 03/06/20 20:00 06/04/20 19:59 Diphenhydramine HCl (Benadryl) 50 mg Q6H PRN ORAL Itching 03/06/20 19:00 04/05/20 18:59 Docusate Sodium (Colace) 100 mg THREE TIMES A DAY ORAL 03/08/20 13:00 04/07/20 12:59 03/09/20 09:37 Furosemide (Lasix) 80 mg Q6HR IV 03/08/20 12:00 04/07/20 11:59 03/09/20 05:58 Guaifenesin/ Dextromethorphan (Robitussin DM Syrup) 10 ml Q4H PRN ORAL For Cough 03/06/20 19:00 06/04/20 18:59 Heparin Sodium (Porcine) (Heparin 5000 units/ml) 5,000 units BID SUBQ 03/07/20 09:00 04/21/20 08:59 03/08/20 18:50 Heparin Sodium/ Sodium Chloride (Heparin 1000 units/500ml Premix) 1,000 unit ONCE PRN IV catheter placement 03/08/20 15:15 03/10/20 15:14 Hydralazine HCl (Apresoline) 50 mg Q6HR ORAL 03/08/20 12:00 06/04/20 17:59 03/09/20 05:57 Insulin Aspart (NovoLOG) BEFORE MEALS AND HS SUBQ 03/06/20 21:00 06/04/20 20:59 03/08/20 16:54 Ipratropium [place] (Atrovent) 500 mcg Q4H PRN HHN Shortness of Breath 03/06/20 19:00 03/11/20 18:59 Lidocaine HCl (Xylocaine 1% 30ml) 30 ml ONCE PRN INJ cathether placement 03/08/20 15:15 03/10/20 15:14 Morphine Sulfate (Morphine Sulfate) 2 mg Q4H PRN IVP For Pain 03/06/20 18:45 03/13/20 18:44 Pantoprazole (Protonix) 40 mg EVERY 12 HOURS ORAL 03/08/20 21:00 04/07/20 20:59 03/09/20 09:36 Phenol/Menthol (Chloraseptic) 1 spray TIDPRN PRN ORAL For Pain 03/06/20 19:00 06/04/20 18:59 Sevelamer Carbonate (Renvela) 1,600 mg THREE TIMES A DAY ORAL 03/09/20 09:00 06/07/20 08:59 03/09/20 09:36 Tamsulosin HCl (Flomax) 0.4 mg BID ORAL 03/08/20 11:30 04/07/20 11:29 03/09/20 09:36 Vitamin B Complex (Vitamin B Complex) 1 tab DAILY ORAL 03/07/20 09:00 06/05/20 08:59 03/09/20 09:36 Brett Pleitez MD Mar 09, 2020 12:13
--- NOTE | 2020-03-09 14:25 | Nephrology Progress Note ---
Assessment/Plan Problem List: (1) Renal failure (ARF), acute on chronic (2) Hypoxia (3) CHF (congestive heart failure) (4) COPD (chronic obstructive pulmonary disease) (5) HTN (hypertension) (6) Hyperkalemia Assessment Acute renal failure Possible underlying chronic kidney disease Hyperkalemia Respiratory failure: Combination of diastolic CHF, COPD, possible pneumonia Hypertension Diabetes mellitus Negative COVID-19 rapid test Plan March 09: Seen this morning during hemodialysis. Patient has a femoral catheter for dialysis access. Aim to ultrafiltrate 3 to 4 L. Postdialysis will stop IV Lasix. We will continue to monitor urine output and renal parameters. Phos binders ordered. Per orders. Ultrasound results noted. Previously: Since diuretic treatment is not working, and the patient is volume overloaded and has difficulty breathing with lower extremity edema and possible ascites will aim to dialyze and do ultrafiltration. Adjust blood pressure medication. Kidney ultrasound, results noted Flomax twice daily Adjust the diet. Change to renal Pulmonary toilet Afterload preload reduction Avoid nephrotoxic's Subjective ROS Limited/Unobtainable: No Constitutional: Reports: malaise, weakness Objective Objective Last 24 Hour Vital Signs Date Time Temp Pulse Resp B/P (MAP) Pulse Ox O2 Delivery O2 Flow Rate FiO2 03/09/20 12:00 135/72 03/09/20 12:00 79 03/09/20 12:00 97.1 81 20 135/72 (93) 92 03/09/20 09:00 Venturi Mask 10.0 03/09/20 08:25 95 Non-Rebreather 15.0 100 03/09/20 08:25 80 22 98 Venturi Mask 14.0 55 78 20 95 03/09/20 08:00 88 03/09/20 08:00 96.3 85 20 145/72 (96) 93 03/09/20 05:57 144/65 03/09/20 04:00 79 03/09/20 04:00 96.3 85 20 146/66 (92) 94 03/09/20 03:26 80 22 97 Venturi Mask 14.0 55 78 22 95 03/09/20 00:43 128/77 03/09/20 00:00 70 03/09/20 00:00 97.3 75 20 128/71 (90) 98 03/08/20 22:00 97.2 76 20 143/73 (96) 100 03/08/20 21:00 Venturi Mask 03/08/20 20:32 97 Non-Rebreather 15.0 100 03/08/20 20:31 88 22 98 Non-Rebreather 14.0 55 84 22 96 03/08/20 20:00 96.7 76 20 143/73 (96) 100 03/08/20 20:00 75 03/08/20 18:53 138/73 03/08/20 16:00 84 03/08/20 16:00 96.6 83 20 167/93 (117) 95 Intake and Output 0 03/08/20 03/09/20 19:00 07:00 Intake Total 500 ml 200 ml Output Total 500 ml 600 ml Balance 0 ml -400 ml Intake Oral 500 ml 200 ml Output Urine Total 500 ml 600 ml # Voids 2 Current Medications Medications (Trade) Dose Ordered Sig/Melissa Route PRN Reason Start Time Stop Time Status Last Admin Dose Admin Acetaminophen/ Hydrocodone Bitart ([place] 5/325) 1 tab Q4H PRN ORAL Moderate Pain (Pain Scale 4-6) 03/06/20 19:00 03/13/20 18:59 Albuterol/ Ipratropium (Albuterol/ Ipratropium) 3 ml Q6H PRN HHN Shortness of Breath 03/06/20 18:15 03/11/20 18:14 03/09/20 03:25 Budesonide (Pulmicort) 0.25 mg EVERY 12 HOURS HHN 03/06/20 21:00 06/04/20 20:59 03/09/20 08:24 Ceftriaxone Sodium 1 gm/ Sodium Chloride 55 ml @ 110 mls/hr Q24H IVPB 03/08/20 17:00 03/15/20 16:59 03/08/20 21:43 Clonidine HCl (Catapres Tab) 0.1 mg Q4H PRN ORAL SBP>170 03/06/20 16:15 06/04/20 16:14 Dextrose (Dextrose 50%) 25 ml Q30M PRN IV Hypoglycemia 03/06/20 20:00 06/04/20 19:59 Dextrose (Dextrose 50%) 50 ml Q30M PRN IV Hypoglycemia 03/06/20 20:00 06/04/20 19:59 Diphenhydramine HCl (Benadryl) 50 mg Q6H PRN ORAL Itching 03/06/20 19:00 04/05/20 18:59 Docusate Sodium (Colace) 100 mg THREE TIMES A DAY ORAL 03/08/20 13:00 04/07/20 12:59 03/09/20 12:39 Guaifenesin/ Dextromethorphan (Robitussin DM Syrup) 10 ml Q4H PRN ORAL For Cough 03/06/20 19:00 06/04/20 18:59 Heparin Sodium (Porcine) (Heparin 5000 units/ml) 5,000 units BID SUBQ 03/07/20 09:00 04/21/20 08:59 03/08/20 18:50 Heparin Sodium/ Sodium Chloride (Heparin 1000 units/500ml Premix) 1,000 unit ONCE PRN IV catheter placement 03/08/20 15:15 03/10/20 15:14 Hydralazine HCl (Apresoline) 50 mg Q6HR ORAL 03/08/20 12:00 06/04/20 17:59 03/09/20 05:57 Insulin Aspart (NovoLOG) BEFORE MEALS AND HS SUBQ 03/06/20 21:00 06/04/20 20:59 03/08/20 16:54 Ipratropium Novinger (Atrovent) 500 mcg Q4H PRN HHN Shortness of Breath 03/06/20 19:00 03/11/20 18:59 Lidocaine HCl (Xylocaine 1% 30ml) 30 ml ONCE PRN INJ cathether placement 03/08/20 15:15 03/10/20 15:14 Metolazone (Zaroxolyn) 10 mg DAILY ORAL 03/10/20 09:00 04/09/20 08:59 Morphine Sulfate (Morphine Sulfate) 2 mg Q4H PRN IVP For Pain 03/06/20 18:45 03/13/20 18:44 Pantoprazole (Protonix) 40 mg EVERY 12 HOURS ORAL 03/08/20 21:00 04/07/20 20:59 03/09/20 09:36 Phenol/Menthol (Chloraseptic) 1 spray TIDPRN PRN ORAL For Pain 03/06/20 19:00 06/04/20 18:59 Sevelamer Carbonate (Renvela) 1,600 mg THREE TIMES A DAY ORAL 03/09/20 09:00 06/07/20 08:59 03/09/20 12:39 Tamsulosin HCl (Flomax) 0.4 mg BID ORAL 03/08/20 11:30 04/07/20 11:29 03/09/20 09:36 Vitamin B Complex (Vitamin B Complex) 1 tab DAILY ORAL 03/07/20 09:00 06/05/20 08:59 03/09/20 09:36 Laboratory Tests 03/08/20 21:47: POC Whole Blood Glucose 135H 03/09/20 05:56: POC Whole Blood Glucose 122H 03/09/20 06:31: Hepatitis B Surface Antigen [Pending] 03/09/20 06:32: White Blood Count 10.2, Red Blood Count 3.91L, Hemoglobin 10.8L, Hematocrit 34.7L, Mean Corpuscular Volume 89, Mean Corpuscular Hemoglobin 27.7, Mean Corpuscular Hemoglobin Concent 31.3L, Red Cell Distribution Width 15.2H, Platelet Count 247, Mean Platelet Volume 7.5, Neutrophils (%) (Auto) , Lymphocytes (%) (Auto) , Monocytes (%) (Auto) , Eosinophils (%) (Auto) , Basophils (%) (Auto) , Differential Total Cells Counted 100, Neutrophils % (Manual) 91H, Lymphocytes % (Manual) 4L, Monocytes % (Manual) 5, Eosinophils % (Manual) 0, Basophils % (Manual) 0, Band Neutrophils 0, Platelet Estimate Ad equate, Platelet Morphology Normal, Hypochromasia 1+, Anisocytosis 1+, Sodium Level 137, Potassium Level 5.1, Chloride Level 106, Carbon Dioxide Level 19L, Anion Gap 12, Blood Urea Nitrogen 91H, Creatinine 4.4H, Estimat Glomerular Filtration Rate 16.2, Glucose Level 119H, Uric Acid 9.4H, Calcium Level 8.4L, Phosphorus Level 7.2H, Magnesium Level 2.3, Total Bilirubin 0.3, Aspartate Amino Transf (AST/SGOT) 26, Alanine Aminotransferase (ALT/SGPT) 21, Alkaline Phosphatase 100, C-Reactive Protein, Quantitative 3.1H, Pro-B-Type Natriuretic Peptide 5852H, Total Protein 7.2, Albumin 2.9L, Globulin 4.3, Albumin/Globulin Ratio 0.7L 03/09/20 11:58: POC Whole Blood Glucose 132H Height (Feet): 5 Height (Inches): 9.00 Weight (Pounds): 228 General Appearance: mild distress Cardiovascular: tachycardia Respiratory/Chest: decreased breath sounds Abdomen: distended Rene Singh MD Mar 09, 2020 14:25
[2020-03-09 16:00] VITALS: BP 155/82
[2020-03-09] MEDS: cefTRIAXone 1 GM in NS 55 ML IVPB SCH (17:04)
--- NOTE | 2020-03-09 19:16 | NUR ---
NURSE HAND-OFF REPORT: Important Events on Shift:HD 4L out Patient Status: Stable Diet: Renal Pending Orders: NA Pending Results/Labs:Morning labs Pending MD notification:NA Latest Vital Signs: Temperature 96.9 , Pulse 89 , B/P 155 /82 , Respiratory Rate 20 , O2 SAT 95 , Venturi Mask, O2 Flow Rate 10.0 . Vital Sign Comment: Stable EKG Rhythm: SR W/ BBB Rhythm change?: N MD Notified?: N - MD Response: Latest Ryan Fall Score: 60 Fall Risk: High Risk Safety Measures: Call light Within Reach, Bed Alarm Zone 1, Side Rails Side Rails x2, Bed position Low and Locked. Fall Precautions: Yellow Socks Patient Fall Education Report given to Ryan/BELKIS.
--- NOTE | 2020-03-09 19:20 | NUR ---
NURSE NOTES: Received report from Rebekah TAMAYO. Pt in stable condition. Pt is fully oriented and ambulatory weakness noted. Denies any pain or n/v. Pt is using Venturi mask takes off at times sating 95% on mask. Denies any SOB. Pt resting in bed comfortably. Pt has R Femoral Janusz slocked patent and intact. Dialysis pt. Bed in low and locked position, call light within reach, bedside table within reach. Continue to monitor.
[2020-03-09 20:00] VITALS: BP 136/71
[2020-03-09] MEDS: HYDROcodone/Acetamin 5/325 tab ORAL PRN (21:46)
--- NOTE | 2020-03-09 23:18 | Psychiatric Progress Note ---
Psychiatry Progress Note Psychiatry Progress Note Medications Current Medications Medications (Trade) Dose Ordered Sig/Melissa Route PRN Reason Start Time Stop Time Status Last Admin Dose Admin Acetaminophen/ Hydrocodone Bitart ([place] 5/325) 1 tab Q4H PRN ORAL Moderate Pain (Pain Scale 4-6) 03/06/20 19:00 03/13/20 18:59 03/09/20 21:46 Albuterol/ Ipratropium (Albuterol/ Ipratropium) 3 ml Q6H PRN HHN Shortness of Breath 03/06/20 18:15 03/11/20 18:14 03/09/20 03:25 Allopurinol (allopurinoL) 300 mg DAILY ORAL 03/09/20 14:30 04/08/20 14:29 03/09/20 15:07 Budesonide (Pulmicort) 0.25 mg EVERY 12 HOURS HHN 03/06/20 21:00 06/04/20 20:59 03/09/20 21:26 Ceftriaxone Sodium 1 gm/ Sodium Chloride 55 ml @ 110 mls/hr Q24H IVPB 03/08/20 17:00 03/15/20 16:59 03/09/20 17:04 Clonidine HCl (Catapres Tab) 0.1 mg Q4H PRN ORAL SBP>170 03/06/20 16:15 06/04/20 16:14 Dextrose (Dextrose 50%) 25 ml Q30M PRN IV Hypoglycemia 03/06/20 20:00 06/04/20 19:59 Dextrose (Dextrose 50%) 50 ml Q30M PRN IV Hypoglycemia 03/06/20 20:00 06/04/20 19:59 Diphenhydramine HCl (Benadryl) 50 mg Q6H PRN ORAL Itching 03/06/20 19:00 04/05/20 18:59 Docusate Sodium (Colace) 100 mg THREE TIMES A DAY ORAL 03/08/20 13:00 04/07/20 12:59 03/09/20 17:03 Guaifenesin/ Dextromethorphan (Robitussin DM Syrup) 10 ml Q4H PRN ORAL For Cough 03/06/20 19:00 06/04/20 18:59 Heparin Sodium (Porcine) (Heparin 5000 units/ml) 5,000 units BID SUBQ 03/07/20 09:00 04/21/20 08:59 03/09/20 17:07 Heparin Sodium/ Sodium Chloride (Heparin 1000 units/500ml Premix) 1,000 unit ONCE PRN IV catheter placement 03/08/20 15:15 03/10/20 15:14 Hydralazine HCl (Apresoline) 50 mg Q6HR ORAL 03/08/20 12:00 06/04/20 17:59 03/09/20 17:04 Insulin Aspart (NovoLOG) BEFORE MEALS AND HS SUBQ 03/06/20 21:00 06/04/20 20:59 03/09/20 21:00 Ipratropium [place] (Atrovent) 500 mcg Q4H PRN HHN Shortness of Breath 03/06/20 19:00 03/11/20 18:59 Lidocaine HCl (Xylocaine 1% 30ml) 30 ml ONCE PRN INJ cathether placement 03/08/20 15:15 03/10/20 15:14 Metolazone (Zaroxolyn) 10 mg DAILY ORAL 03/10/20 09:00 04/09/20 08:59 Morphine Sulfate (Morphine Sulfate) 2 mg Q4H PRN IVP For Pain 03/06/20 18:45 03/13/20 18:44 Pantoprazole (Protonix) 40 mg EVERY 12 HOURS ORAL 03/08/20 21:00 04/07/20 20:59 03/09/20 21:00 Phenol/Menthol (Chloraseptic) 1 spray TIDPRN PRN ORAL For Pain 03/06/20 19:00 06/04/20 18:59 Sevelamer Carbonate (Renvela) 1,600 mg THREE TIMES A DAY ORAL 03/09/20 09:00 06/07/20 08:59 03/09/20 17:03 Tamsulosin HCl (Flomax) 0.4 mg BID ORAL 03/08/20 11:30 04/07/20 11:29 03/09/20 17:03 Vitamin B Complex (Vitamin B Complex) 1 tab DAILY ORAL 03/07/20 09:00 06/05/20 08:59 03/09/20 09:36 Allergies: Coded Allergies: PENICILLINS (Verified Allergy, Unknown, 03/06/20) Uncoded Allergies: SEAFOOD (Allergy, Unknown, 10/31/20) Objective Data Height (Feet): 5 Height (Inches): 9.00 Weight (Pounds): 228 General Appearance: mild distress Assessment/Plan Status: deteriorating Kwasi Diaz MD Mar 09, 2020 23:18
[2020-03-09] MEDS ORDERED: LORazepam 0.5mg tab ORAL PRN (23:30)
[2020-03-10] VITALS: BP 122/60
[2020-03-10] MEDS: HydrALAZINE 50mg tab ORAL SCH ×4 (00:15→17:59)
--- NOTE | 2020-03-10 00:15 | Consultation ---
DATE OF CONSULTATION: CONSULTING PHYSICIAN: Kwasi Diaz M.D. HISTORY OF PRESENT ILLNESS: This is a 69-year-old male with a history of COPD, CHF, acute renal failure, who has been admitted to the hospital for medical stabilization. The patient presented with anxiety, depressed mood, anhedonia. PAST PSYCHIATRIC HISTORY: Anxiety disorder, depression. No psychiatric hospitalization. No suicide attempt. PAST MEDICAL HISTORY: COPD, CHF, renal failure. ALLERGIES: Penicillin. SUBSTANCE ABUSE HISTORY: No known history of illicit drug use or alcohol. MENTAL STATUS EXAMINATION: The patient is alert and oriented times self, place, and situation. Mood is anxious. Affect is blunted, congruent with mood. Thought process is linear and goal oriented. Thought content, no suicidal or homicidal ideation. Cognition is intact. Insight and judgment is fair. ASSESSMENT: [place] I Anxiety disorder. [place] II Deferred. [place] III As above. [place] IV Low. [place] V 50. PLAN: 1. We will start the patient on Celexa 20 mg in the morning. 2. Ativan as needed. 3. Provide the patient with reality orientation, supportive therapy, and medication. Kwasi Diaz M.D. DR: MONIQUE JOB#: [id number] CC:
[2020-03-10] MEDS: Albuterol/Ipratropium 3ml neb HHN PRN ×2 (03:12→14:59)
[2020-03-10 04:00] VITALS: BP 134/66
--- NOTE | 2020-03-10 04:08 | Cardiology Report ---
APPROVED REPORT EXAM: Two-dimensional and M-mode echocardiogram with Doppler and color Doppler. INDICATION Congestive Heart Failure M-Mode DIMENSIONS IVSd1.2 (0.7-1.1cm)Left Atrium (MM)4.1 (1.6-4.0cm) LVDd5.6 (3.5-5.6cm)Aortic Root3.0 (2.0-3.7cm) PWd1.0 (0.7-1.1cm)Aortic Cusp Exc.2.0 (1.5-2.0cm) IVSs2.2 cmEPSS1.2 (>1.0cm) LVDs3.4 (2.5-4.0cm) PWs1.8 cm <Conclusion> Normal left ventricular chamber size, systolic function and wall motion. Left ventricular ejection fraction estimated to be 55-60 %. Mild left ventricular hypertrophy. pleural effusion. Mild left atrial enlargement. Right cardiac chamber sizes are within normal limits. Focal aortic valve sclerosis with adequate cusp excursion. Thickened mitral valve leaflets with normal excursion. Mild mitral annulus and aortic root calcification. Pulmonic valve not well visualized. Normal tricuspid valve structure. IVC dilated at 2.3 cm without physiological collapse. A color flow and spectral Doppler study was performed and revealed: No aortic regurgitation. Mild mitral regurgitation. Mitral diastolic velocities suggest mild left ventricular diastolic dysfunction (Grade I). Trace tricuspid regurgitation. Tricuspid systolic velocities suggests peak right ventricular systolic pressure of 25 mmHg. Trace pulmonic regurgitation present.
--- NOTE | 2020-03-10 04:10 | Cardiology Report ---
APPROVED REPORT EKG Measurement Heart [id number] NM [id number] <Conclusion> Sinus rhythm with fusion complexes Left axis deviation Right bundle branch block Septal infarct, age undetermined Abnormal ECG poor quality tracing consider repeating the study
--- NOTE | 2020-03-10 04:11 | Cardiology Report ---
APPROVED REPORT EKG Measurement Heart [id number] [place] [id number] <Conclusion> Normal sinus rhythm Left axis deviation Right bundle branch block Septal infarct, age undetermined Abnormal ECG
[2020-03-10] MEDS: guaiFENesin /DM 10ml syrup ORAL PRN (06:15)
[2020-03-10] MEDS: HYDROcodone/Acetamin 5/325 tab ORAL PRN (06:15)
[2020-03-10] MEDS: NovoLOG Insulin Flexpen SUBQ SCH ×4 (06:19→20:13)
[2020-03-10 06:21] LABS: BASOPHILS % (AUTO) 0.6 % (0.0-2.0); EOSINOPHILS % (AUTO) 0.8 % (0.0-3.0); HEMATOCRIT 35.9 % (42.0-52.0); HEMOGLOBIN 11.4 G/DL (14.2-18.0); LYMPHOCYTES % (AUTO) 9.5 % (20.0-45.0); MEAN CORPUSCULAR VOLUME 87 FL (80-99); MONOCYTES % (AUTO) 7.9 % (1.0-10.0); NEUTROPHILS % (AUTO) 81.2 % (45.0-75.0); PLATELET COUNT 218 K/UL (150-450); RED CELL DISTRIBUTION WIDTH 14.9 % (11.6-14.8); WHITE BLOOD COUNT 10.1 K/UL (4.8-10.8)
[2020-03-10 06:50] LABS: ALBUMIN 2.7 G/DL (3.4-5.0); ALBUMIN/GLOBULIN RATIO 0.6 (1.0-2.7); BILIRUBIN,TOTAL 0.3 MG/DL (0.2-1.0); CALCIUM 8.5 MG/DL (8.5-10.1); CREATININE 3.5 MG/DL (0.55-1.30); PHOSPHORUS 5.5 MG/DL (2.5-4.9)
--- NOTE | 2020-03-10 07:15 | NUR ---
NURSE NOTES: pt in bed and has ventury mask on, reminded pt to keep it on at all times. Pt on cardiac catheterization technician no signs of cardiac or respiratory distress. Bed locked and in lowest position, call light within reach. will continue to monitor pt.
--- NOTE | 2020-03-10 07:15 | NUR ---
NURSE HAND-OFF REPORT: Important Events on Shift: Patient Status: STABLE Diet: RENAL Pending Orders: Pending Results/Labs: Pending MD notification: Latest Vital Signs: Temperature 97.6 , Pulse 75 , B/P 134 /66 , Respiratory Rate 20 , O2 SAT 95 , Venturi Mask, O2 Flow Rate 10.0 . Vital Sign Comment: EKG Rhythm: SR w/BBB Rhythm change?: N MD Notified?: N - MD Response: Latest Ryan Fall Score: 60 Fall Risk: High Risk Safety Measures: Call light Within Reach, Bed Alarm Zone 1, Side Rails Side Rails x2, Bed position Low and Locked. Fall Precautions: Yellow Socks Patient Fall Education Report given to JEN TAMAYO.
[2020-03-10 08:00] VITALS: BP 129/63
[2020-03-10] MEDS: Budesonide HHN 0.25mg/2ml ud HHN SCH ×2 (08:46→21:04)
--- NOTE | 2020-03-10 08:56 | Pulmonology Progress Note ---
Subjective ROS Limited/Unobtainable: No Interval Events: Feeling better; On ventimask Constitutional: Denies: fever HEENT: Repors: no symptoms Respiratory: Reports: no symptoms Cardiovascular: Reports: no symptoms Gastrointestinal/Abdominal: Reports: no symptoms Genitourinary: Reports: no symptoms Allergies: Coded Allergies: PENICILLINS (Verified Allergy, Unknown, 03/06/20) Uncoded Allergies: SEAFOOD (Allergy, Unknown, 03/06/20) Objective Last 24 Hour Vital Signs Date Time Temp Pulse Resp B/P (MAP) Pulse Ox O2 Delivery O2 Flow Rate FiO2 03/10/20 06:45 97.6 03/10/20 06:14 134/66 03/10/20 04:00 97.6 82 20 134/66 (88) 95 03/10/20 04:00 75 03/10/20 03:13 92 20 96 Venturi Mask 14.0 90 22 93 03/10/20 00:15 122/60 03/10/20 00:00 97.5 68 16 122/60 (80) 95 03/10/20 00:00 73 03/09/20 22:16 96.9 03/09/20 21:27 84 20 98 Venturi Mask 14.0 82 20 96 03/09/20 21:00 Venturi Mask 10.0 03/09/20 20:00 97.5 85 20 136/71 (92) 95 03/09/20 19:00 96 Venturi Mask 10.0 50 03/09/20 17:04 155/82 03/09/20 16:00 96.9 84 20 155/82 (106) 95 03/09/20 16:00 89 03/09/20 12:00 135/72 03/09/20 12:00 79 03/09/20 12:00 97.1 81 20 135/72 (93) 92 03/09/20 09:00 Venturi Mask 10.0 Intake and Output 03/09/20 03/10/20 19:00 07:00 Intake Total 360 ml Output Total 4600 ml 400 ml Balance -4240 ml -400 ml Intake Oral 360 ml Output Urine Total 600 ml 400 ml Hemodialysis UF 4000 ml # Voids 3 General Appearance: no acute distress HEENT: normocephalic Respiratory: chest wall non-tender, lungs clear Cardiovascular: normal peripheral pulses, normal rate Abdomen: normal bowel sounds Laboratory Tests 03/09/20 11:58: POC Whole Blood Glucose 132H 03/09/20 16:47: POC Whole Blood Glucose 168H 03/10/20 05:55: White Blood Count 10.1, Red Blood Count 4.10L, Hemoglobin 11.4L, Hematocrit 35.9L, Mean Corpuscular Volume 87, Mean Corpuscular Hemoglobin 27.8, Mean Corpuscular Hemoglobin Concent 31.8L, Red Cell Distribution Width 14.9H, Platelet Count 218, Mean Platelet Volume 8.4, Neutrophils (%) (Auto) 81.2H, Lymphocytes (%) (Auto) 9.5L, Monocytes (%) (Auto) 7.9, Eosinophils (%) (Auto) 0.8, Basophils (%) (Auto) 0.6, Sodium Level 139, Potassium Level 4.0, Chloride Level 102, Carbon Dioxide Level 28, Anion Gap 10, Blood Urea Nitrogen 59H, Creatinine 3.5H, Estimat Glomerular Filtration Rate 21.2, Glucose Level 117H, Uric Acid 6.2, Calcium Level 8.5, Phosphorus Level 5.5H, Magnesium Level 2.0, Total Bilirubin 0.3, Aspartate Amino Transf (AST/SGOT) 23, Alanine Aminotransferase (ALT/SGPT) 24, Alkaline Phosphatase 111, C-Reactive Protein, Quantitative 8.4H, Pro-B-Type Natriuretic Peptide 4027H, Total Protein 7.1, Albumin 2.7L, Globulin 4.4, Albumin/Globulin Ratio 0.6L Current Medications Medications (Trade) Dose Ordered Sig/Melissa Route PRN Reason Start Time Stop Time Status Last Admin Dose Admin Acetaminophen/ Hydrocodone Bitart ([place] 5/325) 1 tab Q4H PRN ORAL Moderate Pain (Pain Scale 4-6) 03/06/20 19:00 03/13/20 18:59 03/10/20 06:15 Albuterol/ Ipratropium (Albuterol/ Ipratropium) 3 ml Q6H PRN HHN Shortness of Breath 03/06/20 18:15 03/11/20 18:14 03/10/20 03:12 Allopurinol (allopurinoL) 300 mg DAILY ORAL 03/09/20 14:30 04/08/20 14:29 03/09/20 15:07 Budesonide (Pulmicort) 0.25 mg EVERY 12 HOURS HHN 03/06/20 21:00 06/04/20 20:59 03/10/20 08:46 Ceftriaxone Sodium 1 gm/ Sodium Chloride 55 ml @ 110 mls/hr Q24H IVPB 03/08/20 17:00 03/15/20 16:59 03/09/20 17:04 Citalopram Hydrobromide (CeleXA) 20 mg DAILY ORAL 03/10/20 09:00 04/09/20 08:59 Clonidine HCl (Catapres Tab) 0.1 mg Q4H PRN ORAL SBP>170 03/06/20 16:15 06/04/20 16:14 Dextrose (Dextrose 50%) 25 ml Q30M PRN IV Hypoglycemia 03/06/20 20:00 06/04/20 19:59 Dextrose (Dextrose 50%) 50 ml Q30M PRN IV Hypoglycemia 03/06/20 20:00 06/04/20 19:59 Diphenhydramine HCl (Benadryl) 50 mg Q6H PRN ORAL Itching 03/06/20 19:00 04/05/20 18:59 Docusate Sodium (Colace) 100 mg THREE TIMES A DAY ORAL 03/08/20 13:00 04/07/20 12:59 03/09/20 17:03 Guaifenesin/ Dextromethorphan (Robitussin DM Syrup) 10 ml Q4H PRN ORAL For Cough 03/06/20 19:00 06/04/20 18:59 03/10/20 06:15 Heparin Sodium (Porcine) (Heparin 5000 units/ml) 5,000 units BID SUBQ 03/07/20 09:00 04/21/20 08:59 03/09/20 17:07 Heparin Sodium/ Sodium Chloride (Heparin 1000 units/500ml Premix) 1,000 unit ONCE PRN IV catheter placement 03/08/20 15:15 03/10/20 15:14 Hydralazine HCl (Apresoline) 50 mg Q6HR ORAL 03/08/20 12:00 06/04/20 17:59 03/10/20 06:14 Insulin Aspart (NovoLOG) BEFORE MEALS AND HS SUBQ 03/06/20 21:00 06/04/20 20:59 03/09/20 21:00 Ipratropium [place] (Atrovent) 500 mcg Q4H PRN HHN Shortness of Breath 03/06/20 19:00 03/11/20 18:59 Lidocaine HCl (Xylocaine 1% 30ml) 30 ml ONCE PRN INJ cathether placement 03/08/20 15:15 03/10/20 15:14 Lorazepam (Ativan) 1 mg Q6H PRN ORAL For Anxiety 03/09/20 23:30 03/16/20 23:29 Metolazone (Zaroxolyn) 10 mg DAILY ORAL 03/10/20 09:00 04/09/20 08:59 Morphine Sulfate (Morphine Sulfate) 2 mg Q4H PRN IVP For Pain 03/06/20 18:45 03/13/20 18:44 Pantoprazole (Protonix) 40 mg EVERY 12 HOURS ORAL 03/08/20 21:00 04/07/20 20:59 03/09/20 21:00 Phenol/Menthol (Chloraseptic) 1 spray TIDPRN PRN ORAL For Pain 03/06/20 19:00 06/04/20 18:59 Sevelamer Carbonate (Renvela) 1,600 mg THREE TIMES A DAY ORAL 03/09/20 09:00 06/07/20 08:59 03/09/20 17:03 Tamsulosin HCl (Flomax) 0.4 mg BID ORAL 03/08/20 11:30 04/07/20 11:29 03/09/20 17:03 Vitamin B Complex (Vitamin B Complex) 1 tab DAILY ORAL 03/07/20 09:00 06/05/20 08:59 03/09/20 09:36 Assessment/Plan Assessment/Plan IMPRESSION: 1. Pulmonary infiltrates bilaterally, suspect pulmonary edema. 2. Hypertension. 3. Diabetes mellitus. 4. Renal failure. 5. COPD. 6. Negative COVID 19 rapid test DISCUSSION: Continue breathing treatments with albuterol and Atrovent Negative COVID 19 Broad-spectrum antibiotics will be given. I will follow carefully. HD yesterday Will lower FiO2 as tolerated Jie Rivera Omar Syed MD Mar 10, 2020 08:56
--- NOTE | 2020-03-10 10:05 | NUR ---
PT NOTE DC PT per Dr. Singh as patient has femoral catheter and should not be ambulating. Michelle TAMAYO aware.
[2020-03-10] MEDS: Docusate 100mg cap ORAL SCH ×3 (10:58→18:02)
[2020-03-10] MEDS: Tamsulosin 0.4mg cap ORAL SCH ×2 (10:58→17:56)
[2020-03-10] MEDS: Vitamin B Complex Tab ORAL SCH (10:59)
[2020-03-10] MEDS: Citalopram Hydrobromide 10mg Tab ORAL SCH (10:59)
[2020-03-10] MEDS: Heparin 5000 units/ml inj SUBQ SCH ×2 (11:00→18:03)
--- NOTE | 2020-03-10 11:10 | Infectious Diseases Prog Note ---
Assessment/Plan Assessment/Plan IMPRESSION: 1. Pneumonia. 2. COPD. 3. Pulmonary edema. 4. CHF. 5. Diabetes mellitus. 6. Hypertension. 7. ESRD 8. Anemia. 9. BPH. 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 We will follow up the cultures. Subjective ROS Limited/Unobtainable: Yes Constitutional: Denies: fever Respiratory: Reports: shortness of breath Gastrointestinal/Abdominal: Reports: no symptoms Genitourinary: Reports: no symptoms Allergies: Coded Allergies: PENICILLINS (Verified Allergy, Unknown, 03/06/20) Uncoded Allergies: SEAFOOD (Allergy, Unknown, 03/06/20) Objective Last 24 Hour Vital Signs Date Time Temp Pulse Resp B/P (MAP) Pulse Ox O2 Delivery O2 Flow Rate FiO2 03/10/20 08:56 80 20 95 Venturi Mask 14.0 55 74 20 90 03/10/20 08:56 95 Venturi Mask 14.0 55 03/10/20 08:00 97.1 81 20 129/63 (85) 97 03/10/20 06:45 97.6 03/10/20 06:14 134/66 03/10/20 04:00 97.6 82 20 134/66 (88) 95 03/10/20 04:00 75 03/10/20 03:13 92 20 96 Venturi Mask 14.0 90 22 93 03/10/20 00:15 122/60 03/10/20 00:00 97.5 68 16 122/60 (80) 95 03/10/20 00:00 73 03/09/20 22:16 96.9 03/09/20 21:27 84 20 98 Venturi Mask 14.0 82 20 96 03/09/20 21:00 Venturi Mask 10.0 03/09/20 20:00 97.5 85 20 136/71 (92) 95 03/09/20 19:00 96 Venturi Mask 10.0 50 03/09/20 17:04 155/82 03/09/20 16:00 96.9 84 20 155/82 (106) 95 03/09/20 16:00 89 03/09/20 12:00 135/72 03/09/20 12:00 79 03/09/20 12:00 97.1 81 20 135/72 (93) 92 Height (Feet): 5 Height (Inches): 9.00 Weight (Pounds): 228 General Appearance: no acute distress HEENT: mucous membranes moist Respiratory/Chest: lungs clear, other - oxygen by mask Cardiovascular: normal rate, other - Femoral Janusz catheter Abdomen: soft, non tender Extremities: other - edema decreasing Neurologic/Psychiatric: alert, responsive Laboratory Tests Test 03/09/20 11:58 03/09/20 16:47 03/10/20 05:55 POC Whole Blood Glucose 132 MG/DL (74-106) H 168 MG/DL (74-106) H White Blood Count 10.1 K/UL (4.8-10.8) Red Blood Count 4.10 M/UL (4.70-6.10) L Hemoglobin 11.4 G/DL (14.2-18.0) L Hematocrit 35.9 % (42.0-52.0) L Mean Corpuscular Volume 87 FL (80-99) Mean Corpuscular Hemoglobin 27.8 PG (27.0-31.0) Mean Corpuscular Hemoglobin Concent 31.8 G/DL (32.0-36.0) L Red Cell Distribution Width 14.9 % (11.6-14.8) H Platelet Count 218 K/UL (150-450) Mean Platelet Volume 8.4 FL (6.5-10.1) Neutrophils (%) (Auto) 81.2 % (45.0-75.0) H Lymphocytes (%) (Auto) 9.5 % (20.0-45.0) L Monocytes (%) (Auto) 7.9 % (1.0-10.0) Eosinophils (%) (Auto) 0.8 % (0.0-3.0) Basophils (%) (Auto) 0.6 % (0.0-2.0) Sodium Level 139 MMOL/L (136-145) Potassium Level 4.0 MMOL/L (3.5-5.1) Chloride Level 102 MMOL/L (98-107) Carbon Dioxide Level 28 MMOL/L (21-32) Anion Gap 10 mmol/L (5-15) Blood Urea Nitrogen 59 mg/dL (7-18) H Creatinine 3.5 MG/DL (0.55-1.30) H Estimat Glomerular Filtration Rate 21.2 mL/min (>60) Glucose Level 117 MG/DL (74-106) H Uric Acid 6.2 MG/DL (2.6-7.2) Calcium Level 8.5 MG/DL (8.5-10.1) Phosphorus Level 5.5 MG/DL (2.5-4.9) H Magnesium Level 2.0 MG/DL (1.8-2.4) Total Bilirubin 0.3 MG/DL (0.2-1.0) Aspartate Amino Transf (AST/SGOT) 23 U/L (15-37) Alanine Aminotransferase (ALT/SGPT) 24 U/L (12-78) Alkaline Phosphatase 111 U/L (46-116) C-Reactive Protein, Quantitative 8.4 mg/dL (0.00-0.90) H Pro-B-Type Natriuretic Peptide 4027 pg/mL (0-125) H Total Protein 7.1 G/DL (6.4-8.2) Albumin 2.7 G/DL (3.4-5.0) L Globulin 4.4 g/dL Albumin/Globulin Ratio 0.6 (1.0-2.7) L Current Medications Medications (Trade) Dose Ordered Sig/Melissa Route PRN Reason Start Time Stop Time Status Last Admin Dose Admin Acetaminophen/ Hydrocodone Bitart ([place] 5/325) 1 tab Q4H PRN ORAL Moderate Pain (Pain Scale 4-6) 03/06/20 19:00 03/13/20 18:59 03/10/20 06:15 Albuterol/ Ipratropium (Albuterol/ Ipratropium) 3 ml Q6H PRN HHN Shortness of Breath 03/06/20 18:15 03/11/20 18:14 03/10/20 03:12 Allopurinol (allopurinoL) 300 mg DAILY ORAL 03/09/20 14:30 04/08/20 14:29 03/10/20 10:58 Budesonide (Pulmicort) 0.25 mg EVERY 12 HOURS HHN 03/06/20 21:00 06/04/20 20:59 03/10/20 08:46 Ceftriaxone Sodium 1 gm/ Sodium Chloride 55 ml @ 110 mls/hr Q24H IVPB 03/08/20 17:00 03/15/20 16:59 03/09/20 17:04 Citalopram Hydrobromide (CeleXA) 20 mg DAILY ORAL 03/10/20 09:00 04/09/20 08:59 03/10/20 10:59 Clonidine HCl (Catapres Tab) 0.1 mg Q4H PRN ORAL SBP>170 03/06/20 16:15 06/04/20 16:14 Dextrose (Dextrose 50%) 25 ml Q30M PRN IV Hypoglycemia 03/06/20 20:00 06/04/20 19:59 Dextrose (Dextrose 50%) 50 ml Q30M PRN IV Hypoglycemia 03/06/20 20:00 06/04/20 19:59 Diphenhydramine HCl (Benadryl) 50 mg Q6H PRN ORAL Itching 03/06/20 19:00 04/05/20 18:59 Docusate Sodium (Colace) 100 mg THREE TIMES A DAY ORAL 03/08/20 13:00 04/07/20 12:59 03/10/20 10:58 Guaifenesin/ Dextromethorphan (Robitussin DM Syrup) 10 ml Q4H PRN ORAL For Cough 03/06/20 19:00 06/04/20 18:59 03/10/20 06:15 Heparin Sodium (Porcine) (Heparin 5000 units/ml) 5,000 units BID SUBQ 03/07/20 09:00 04/21/20 08:59 03/10/20 11:00 Heparin Sodium/ Sodium Chloride (Heparin 1000 units/500ml Premix) 1,000 unit ONCE PRN IV catheter placement 03/08/20 15:15 03/10/20 15:14 Hydralazine HCl (Apresoline) 50 mg Q6HR ORAL 03/08/20 12:00 06/04/20 17:59 03/10/20 06:14 Insulin Aspart (NovoLOG) BEFORE MEALS AND HS SUBQ 03/06/20 21:00 06/04/20 20:59 03/09/20 21:00 Ipratropium [place] (Atrovent) 500 mcg Q4H PRN HHN Shortness of Breath 03/06/20 19:00 03/11/20 18:59 Lidocaine HCl (Xylocaine 1% 30ml) 30 ml ONCE PRN INJ cathether placement 03/08/20 15:15 03/10/20 15:14 Lorazepam (Ativan) 1 mg Q6H PRN ORAL For Anxiety 03/09/20 23:30 03/16/20 23:29 Metolazone (Zaroxolyn) 10 mg DAILY ORAL 03/10/20 09:00 04/09/20 08:59 03/10/20 10:57 Morphine Sulfate (Morphine Sulfate) 2 mg Q4H PRN IVP For Pain 03/06/20 18:45 03/13/20 18:44 Pantoprazole (Protonix) 40 mg EVERY 12 HOURS ORAL 03/08/20 21:00 04/07/20 20:59 03/10/20 10:58 Phenol/Menthol (Chloraseptic) 1 spray TIDPRN PRN ORAL For Pain 03/06/20 19:00 06/04/20 18:59 Sevelamer Carbonate (Renvela) 1,600 mg THREE TIMES A DAY ORAL 03/09/20 09:00 06/07/20 08:59 03/10/20 10:58 Tamsulosin HCl (Flomax) 0.4 mg BID ORAL 03/08/20 11:30 04/07/20 11:29 03/10/20 10:58 Vitamin B Complex (Vitamin B Complex) 1 tab DAILY ORAL 03/07/20 09:00 06/05/20 08:59 03/10/20 10:59 Brett Pleitez MD Mar 10, 2020 11:10
--- NOTE | 2020-03-10 11:27 | NUR ---
NURSE NOTES: per doctor Samantha, pt to be dialyzed again today, [facility] has been called, she will come in around 1600 today
[2020-03-10 12:00] VITALS: BP 110/71
--- NOTE | 2020-03-10 13:02 | General Progress Note ---
Subjective ROS Limited/Unobtainable: Yes Allergies: Coded Allergies: PENICILLINS (Verified Allergy, Unknown, 03/06/20) Uncoded Allergies: SEAFOOD (Allergy, Unknown, 03/06/20) Objective Last 24 Hour Vital Signs Date Time Temp Pulse Resp B/P (MAP) Pulse Ox O2 Delivery O2 Flow Rate FiO2 03/10/20 12:34 109/71 03/10/20 08:56 80 20 95 Venturi Mask 14.0 55 74 20 90 03/10/20 08:56 95 Venturi Mask 14.0 55 03/10/20 08:00 97.1 81 20 129/63 (85) 97 03/10/20 06:45 97.6 03/10/20 06:14 134/66 03/10/20 04:00 97.6 82 20 134/66 (88) 95 03/10/20 04:00 75 03/10/20 03:13 92 20 96 Venturi Mask 14.0 90 22 93 03/10/20 00:15 122/60 03/10/20 00:00 97.5 68 16 122/60 (80) 95 03/10/20 00:00 73 03/09/20 22:16 96.9 03/09/20 21:27 84 20 98 Venturi Mask 14.0 82 20 96 03/09/20 21:00 Venturi Mask 10.0 03/09/20 20:00 97.5 85 20 136/71 (92) 95 03/09/20 19:00 96 Venturi Mask 10.0 50 03/09/20 17:04 155/82 03/09/20 16:00 96.9 84 20 155/82 (106) 95 03/09/20 16:00 89 Intake and Output 03/09/20 03/10/20 19:00 07:00 Intake Total 360 ml Output Total 4600 ml 400 ml Balance -4240 ml -400 ml Intake Oral 360 ml Output Urine Total 600 ml 400 ml Hemodialysis UF 4000 ml # Voids 3 Laboratory Tests 03/09/20 16:47: POC Whole Blood Glucose 168H 03/10/20 05:55: White Blood Count 10.1, Red Blood Count 4.10L, Hemoglobin 11.4L, Hematocrit 35.9L, Mean Corpuscular Volume 87, Mean Corpuscular Hemoglobin 27.8, Mean Corpuscular Hemoglobin Concent 31.8L, Red Cell Distribution Width 14.9H, P latelet Count 218, Mean Platelet Volume 8.4, Neutrophils (%) (Auto) 81.2H, Lymphocytes (%) (Auto) 9.5L, Monocytes (%) (Auto) 7.9, Eosinophils (%) (Auto) 0.8, Basophils (%) (Auto) 0.6, Sodium Level 139, Potassium Level 4.0, Chloride Level 102, Carbon Dioxide Level 28, Anion Gap 10, Blood Urea Nitrogen 59H, Cre atinine 3.5H, Estimat Glomerular Filtration Rate 21.2, Glucose Level 117H, Uric Acid 6.2, Calcium Level 8.5, Phosphorus Level 5.5H, Magnesium Level 2.0, Total Bilirubin 0.3, Aspartate Amino Transf (AST/SGOT) 23, Alanine Aminotransferase (ALT/SGPT) 24, Alkaline Phosphatase 111, C-Reactive Protein, Quantitative 8.4H, Pro-B-Type Natriuretic Peptide 4027H, Total Protein 7.1, Albumin 2.7L, Globulin 4.4, Albumin/Globulin Ratio 0.6L 03/10/20 12:19: POC Whole Blood Glucose [Pending] Height (Feet): 5 Height (Inches): 9.00 Weight (Pounds): 228 Assessment/Plan Problem List: (1) COPD (chronic obstructive pulmonary disease) ICD Codes: J44.9 - Chronic obstructive pulmonary disease, unspecified SNOMED: 37241923 Qualifiers: Qualified Codes: J44.1 - Chronic obstructive pulmonary disease with (acute) exacerbation (2) CHF (congestive heart failure) ICD Codes: I50.9 - Heart failure, unspecified SNOMED: 49891159 Qualifiers: Qualified Codes: I50.9 - Heart failure, unspecified (3) Hypoxia ICD Codes: R09.02 - Hypoxemia SNOMED: 792682653 (4) Renal failure (ARF), acute on chronic ICD Codes: N17.9 - Acute kidney failure, unspecified; N18.9 - Chronic kidney disease, unspecified SNOMED: 164939603 Qualifiers: Qualified Codes: N17.9 - Acute kidney failure, unspecified; N18.4 - Chronic kidney disease, stage 4 (severe) Status: progressing, deteriorating Assessment/Plan: dialysis per dr nereyda robin sob is improving vitals stable sob on oxygen chf copd resp insuff John Chavez MD Mar 10, 2020 13:02
[2020-03-10 16:00] VITALS: BP 147/71
--- NOTE | 2020-03-10 16:04 | Cardiac Electrophysiology PN ---
Assessment/Plan Assessment/Plan 1. Severe bilateral lower extremity edema with shortness of breath and BNP of almost 4000. EF 60%. Due to CHF due to diastolic dysfunction renal failure. Now on HD and Zaroxyline 2. Hypertension. On HD, Zaroxyline 10 daily, hydralazine 50 mg q 6hr and p.r.n. clonidine. 3. Renal failure, creatinine was 3.9 that increased to >[address]UN [address] DW Dr. Singh. Started on HD 4. COPD. DW RN Subjective Subjective No CP. SOB better after HD. ECG SR with RBBB, LAFB Got RFV Janusz and had HD yesterday Objective Last 24 Hour Vital Signs Date Time Temp Pulse Resp B/P (MAP) Pulse Ox O2 Delivery O2 Flow Rate FiO2 03/10/20 14:59 78 20 95 Venturi Mask 14.0 55 75 20 93 03/10/20 13:08 Venturi Mask 10.0 03/10/20 12:34 109/71 03/10/20 12:00 80 03/10/20 09:00 Venturi Mask 10.0 03/10/20 08:56 80 20 95 Venturi Mask 14.0 55 74 20 90 03/10/20 08:56 95 Venturi Mask 14.0 55 03/10/20 08:00 89 03/10/20 08:00 97.1 81 20 129/63 (85) 97 03/10/20 06:45 97.6 03/10/20 06:14 134/66 03/10/20 04:00 97.6 82 20 134/66 (88) 95 03/10/20 04:00 75 03/10/20 03:13 92 20 96 Venturi Mask 14.0 90 22 93 03/10/20 00:15 122/60 03/10/20 00:00 97.5 68 16 122/60 (80) 95 03/10/20 00:00 73 03/09/20 22:16 96.9 03/09/20 21:27 84 20 98 Venturi Mask 14.0 82 20 96 03/09/20 21:00 Venturi Mask 10.0 03/09/20 20:00 97.5 85 20 136/71 (92) 95 03/09/20 19:00 96 Venturi Mask 10.0 50 03/09/20 17:04 155/82 Intake and Output 03/09/20 03/10/20 19:00 07:00 Intake Total 360 ml Output Total 4600 ml 400 ml Balance -4240 ml -400 ml Intake Oral 360 ml Output Urine Total 600 ml 400 ml Hemodialysis UF 4000 ml # Voids 3 Laboratory Tests Test 03/09/20 16:47 03/10/20 05:55 03/10/20 12:19 POC Whole Blood Glucose 168 MG/DL (74-106) H Pending White Blood Count 10.1 K/UL (4.8-10.8) Red Blood Count 4.10 M/UL (4.70-6.10) L Hemoglobin 11.4 G/DL (14.2-18.0) L Hematocrit 35.9 % (42.0-52.0) L Mean Corpuscular Volume 87 FL (80-99) Mean Corpuscular Hemoglobin 27.8 PG (27.0-31.0) Mean Corpuscular Hemoglobin Concent 31.8 G/DL (32.0-36.0) L Red Cell Distribution Width 14.9 % (11.6-14.8) H Platelet Count 218 K/UL (150-450) Mean Platelet Volume 8.4 FL (6.5-10.1) Neutrophils (%) (Auto) 81.2 % (45.0-75.0) H Lymphocytes (%) (Auto) 9.5 % (20.0-45.0) L Monocytes (%) (Auto) 7.9 % (1.0-10.0) Eosinophils (%) (Auto) 0.8 % (0.0-3.0) Basophils (%) (Auto) 0.6 % (0.0-2.0) Sodium Level 139 MMOL/L (136-145) Potassium Level 4.0 MMOL/L (3.5-5.1) Chloride Level 102 MMOL/L (98-107) Carbon Dioxide Level 28 MMOL/L (21-32) Anion Gap 10 mmol/L (5-15) Blood Urea Nitrogen 59 mg/dL (7-18) H Creatinine 3.5 MG/DL (0.55-1.30) H Estimat Glomerular Filtration Rate 21.2 mL/min (>60) Glucose Level 117 MG/DL (74-106) H Uric Acid 6.2 MG/DL (2.6-7.2) Calcium Level 8.5 MG/DL (8.5-10.1) Phosphorus Level 5.5 MG/DL (2.5-4.9) H Magnesium Level 2.0 MG/DL (1.8-2.4) Total Bilirubin 0.3 MG/DL (0.2-1.0) Aspartate Amino Transf (AST/SGOT) 23 U/L (15-37) Alanine Aminotransferase (ALT/SGPT) 24 U/L (12-78) Alkaline Phosphatase 111 U/L (46-116) C-Reactive Protein, Quantitative 8.4 mg/dL (0.00-0.90) H Pro-B-Type Natriuretic Peptide 4027 pg/mL (0-125) H Total Protein 7.1 G/DL (6.4-8.2) Albumin 2.7 G/DL (3.4-5.0) L Globulin 4.4 g/dL Albumin/Globulin Ratio 0.6 (1.0-2.7) L Objective HEAD AND NECK: Positive JVD. LUNGS: Decreased breath sounds. CARDIOVASCULAR: Regular S1 and S2 with no gallop. ABDOMEN: Soft. EXTREMITIES: 3+ pitting edema in lower extremities as well as 2+ pitting edema in right arm. RFV Ponce Wesley MD Mar 10, 2020 16:04
--- NOTE | 2020-03-10 16:10 | Nephrology Progress Note ---
Assessment/Plan Problem List: (1) Renal failure (ARF), acute on chronic (2) Hypoxia (3) CHF (congestive heart failure) (4) COPD (chronic obstructive pulmonary disease) (5) HTN (hypertension) (6) Hyperkalemia Assessment Acute renal failure Possible underlying chronic kidney disease Hyperkalemia Respiratory failure: Combination of diastolic CHF, COPD, possible pneumonia Hypertension Diabetes mellitus Negative COVID-19 rapid test Plan March 10: Patient was dialyzed yesterday. Over 3 L ultrafiltration done. Patient will be dialyzed again today with ultrafiltration. Continue to monitor pulmonary status. Discussed with . March 09: Seen this morning during hemodialysis. Patient has a femoral catheter for dialysis access. Aim to ultrafiltrate 3 to 4 L. Postdialysis will stop IV Lasix. We will continue to monitor urine output and renal parameters. Phos binders ordered. Per orders. Ultrasound results noted. Previously: Since diuretic treatment is not working, and the patient is volume overloaded and has difficulty breathing with lower extremity edema and possible ascites will aim to dialyze and do ultrafiltration. Adjust blood pressure medication. Kidney ultrasound, results noted Flomax twice daily Adjust the diet. Change to renal Pulmonary toilet Afterload preload reduction Avoid nephrotoxic's Subjective ROS Limited/Unobtainable: No Constitutional: Reports: malaise, weakness Objective Objective Last 24 Hour Vital Signs Date Time Temp Pulse Resp B/P (MAP) Pulse Ox O2 Delivery O2 Flow Rate FiO2 03/10/20 14:59 78 20 95 Venturi Mask 14.0 55 75 20 93 03/10/20 13:08 Venturi Mask 10.0 03/10/20 12:34 109/71 03/10/20 12:00 80 03/10/20 09:00 Venturi Mask 10.0 03/10/20 08:56 80 20 95 Venturi Mask 14.0 55 74 20 90 03/10/20 08:56 95 Venturi Mask 14.0 55 03/10/20 08:00 89 03/10/20 08:00 97.1 81 20 129/63 (85) 97 03/10/20 06:45 97.6 03/10/20 06:14 134/66 03/10/20 04:00 97.6 82 20 134/66 (88) 95 03/10/20 04:00 75 03/10/20 03:13 92 20 96 Venturi Mask 14.0 90 22 93 03/10/20 00:15 122/60 03/10/20 00:00 97.5 68 16 122/60 (80) 95 03/10/20 00:00 73 03/09/20 22:16 96.9 03/09/20 21:27 84 20 98 Venturi Mask 14.0 82 20 96 03/09/20 21:00 Venturi Mask 10.0 03/09/20 20:00 97.5 85 20 136/71 (92) 95 03/09/20 19:00 96 Venturi Mask 10.0 50 03/09/20 17:04 155/82 Intake and Output 03/09/20 03/10/20 19:00 07:00 Intake Total 360 ml Output Total 4600 ml 400 ml Balance -4240 ml -400 ml Intake Oral 360 ml Output Urine Total 600 ml 400 ml Hemodialysis UF 4000 ml # Voids 3 Current Medications Medications (Trade) Dose Ordered Sig/Melissa Route PRN Reason Start Time Stop Time Status Last Admin Dose Admin Acetaminophen/ Hydrocodone Bitart ([place] 5/325) 1 tab Q4H PRN ORAL Moderate Pain (Pain Scale 4-6) 03/06/20 19:00 03/13/20 18:59 03/10/20 06:15 Albuterol/ Ipratropium (Albuterol/ Ipratropium) 3 ml Q6H PRN HHN Shortness of Breath 03/06/20 18:15 03/11/20 18:14 03/10/20 14:59 Allopurinol (allopurinoL) 300 mg DAILY ORAL 03/09/20 14:30 04/08/20 14:29 03/10/20 10:58 Budesonide (Pulmicort) 0.25 mg EVERY 12 HOURS HHN 03/06/20 21:00 06/04/20 20:59 03/10/20 08:46 Ceftriaxone Sodium 1 gm/ Sodium Chloride 55 ml @ 110 mls/hr Q24H IVPB 03/08/20 17:00 03/15/20 16:59 03/09/20 17:04 Citalopram Hydrobromide (CeleXA) 20 mg DAILY ORAL 03/10/20 09:00 04/09/20 08:59 03/10/20 10:59 Clonidine HCl (Catapres Tab) 0.1 mg Q4H PRN ORAL SBP>170 03/06/20 16:15 06/04/20 16:14 Dextrose (Dextrose 50%) 25 ml Q30M PRN IV Hypoglycemia 03/06/20 20:00 06/04/20 19:59 Dextrose (Dextrose 50%) 50 ml Q30M PRN IV Hypoglycemia 03/06/20 20:00 06/04/20 19:59 Diphenhydramine HCl (Benadryl) 50 mg Q6H PRN ORAL Itching 03/06/20 19:00 04/05/20 18:59 Docusate Sodium (Colace) 100 mg THREE TIMES A DAY ORAL 03/08/20 13:00 04/07/20 12:59 03/10/20 13:00 Guaifenesin/ Dextromethorphan (Robitussin DM Syrup) 10 ml Q4H PRN ORAL For Cough 03/06/20 19:00 06/04/20 18:59 03/10/20 06:15 Heparin Sodium (Porcine) (Heparin 5000 units/ml) 5,000 units BID SUBQ 03/07/20 09:00 04/21/20 08:59 03/10/20 11:00 Hydralazine HCl (Apresoline) 50 mg Q6HR ORAL 03/08/20 12:00 06/04/20 17:59 03/10/20 06:14 Insulin Aspart (NovoLOG) BEFORE MEALS AND HS SUBQ 03/06/20 21:00 06/04/20 20:59 03/10/20 12:28 Ipratropium [place] (Atrovent) 500 mcg Q4H PRN HHN Shortness of Breath 03/06/20 19:00 03/11/20 18:59 Lorazepam (Ativan) 1 mg Q6H PRN ORAL For Anxiety 03/09/20 23:30 03/16/20 23:29 Metolazone (Zaroxolyn) 10 mg DAILY ORAL 03/10/20 09:00 04/09/20 08:59 03/10/20 10:57 Morphine Sulfate (Morphine Sulfate) 2 mg Q4H PRN IVP For Pain 03/06/20 18:45 03/13/20 18:44 Pantoprazole (Protonix) 40 mg EVERY 12 HOURS ORAL 03/08/20 21:00 04/07/20 20:59 03/10/20 10:58 Phenol/Menthol (Chloraseptic) 1 spray TIDPRN PRN ORAL For Pain 03/06/20 19:00 06/04/20 18:59 Sevelamer Carbonate (Renvela) 1,600 mg THREE TIMES A DAY ORAL 03/09/20 09:00 06/07/20 08:59 03/10/20 13:00 Tamsulosin HCl (Flomax) 0.4 mg BID ORAL 03/08/20 11:30 04/07/20 11:29 03/10/20 10:58 Vitamin B Complex (Vitamin B Complex) 1 tab DAILY ORAL 03/07/20 09:00 06/05/20 08:59 03/10/20 10:59 Laboratory Tests 03/09/20 16:47: POC Whole Blood Glucose 168H 03/10/20 05:55: White Blood Count 10.1, Red Blood Count 4.10L, Hemoglobin 11.4L, Hematocrit 35.9L, Mean Corpuscular Volume 87, Mean Corpuscular Hemoglobin 27.8, Mean Corpu scular Hemoglobin Concent 31.8L, Red Cell Distribution Width 14.9H, Platelet Count 218, Mean Platelet Volume 8.4, Neutrophils (%) (Auto) 81.2H, Lymphocytes (%) (Auto) 9.5L, Monocytes (%) (Auto) 7.9, Eosinophils (%) (Auto) 0.8, Basophils (%) (Auto) 0.6, Sodium Level 139, Potassium Level 4.0, Chloride Level 102, Carbon Dioxide Level 28, Anion Gap 10, Blood Urea Nitrogen 59H, Creatinine 3.5H, Estimat Glomerular Filtration Rate 21.2, Glucose Level 117H, Uric Acid 6.2, Calcium Level 8.5, Phosphorus Level 5.5H, Magnesium Level 2.0, Total Bilirubin 0.3, Aspartate Amino Transf (AST/SGOT) 23, Alanine Aminotransferase (ALT/SGPT) 24, Alkaline Phosphatase 111, C-Reactive Protein, Quantitative 8.4H, Pro-B-Type Natriuretic Peptide 4027H, Total Protein 7.1, Albumin 2.7L, Globulin 4.4, Albumin/Globulin Ratio 0.6L 03/10/20 12:19: POC Whole Blood Glucose [Pending] Height (Feet): 5 Height (Inches): 9.00 Weight (Pounds): 228 General Appearance: mild distress Cardiovascular: normal rate Respiratory/Chest: decreased breath sounds Abdomen: distended Rene Singh MD Mar 10, 2020 16:10
[2020-03-10] MEDS: cefTRIAXone 1 GM in NS 55 ML IVPB SCH (17:52)
--- NOTE | 2020-03-10 19:00 | NUR ---
NURSE NOTES: notified cowlman about pt Apaced afib episode.
--- NOTE | 2020-03-10 19:34 | NUR ---
NURSE NOTES: Report received from Michelle TAMAYO. Patient is noted to be awake and alert x 4. Patient is noted to be on venturi mask at 10 liters of oxygen. patient appears to be have slight shortness of breath, however, after repositioning in bed patient has no complaints of shortness of breath or chest pain. Was endorsed to Alexei TAMAYO that respiratory therapy attempted to wean patient to nasal canula, however, at this time patient continues to require venturi mask to meet oxygen requirements at this time. Patient is noted to have right femoral tunnel catheter for temporary dialysis. Was endorsed to Alexei TAMAYO that due to area of placement that patient ambulation is to be restricted. Was endorsed to Alexei TAMAYO that patient requires frequent reminders of this. Bed is locked, alarmed, and in lowest position. Call light in reach. Will continue to follow plan of care.
--- NOTE | 2020-03-10 19:45 | NUR ---
NURSE HAND-OFF REPORT: Important Events on Shift:pt is very non compliant, and keeps taking off his Ventury Mask, pt is not supposed to be ambulating because of his femoral cath. Pt has been cancelled dialysis today 3L out Patient Status: full Diet: Renal Pending Orders: Pending Results/Labs: Pending MD notification: Latest Vital Signs: Temperature 98.2 , Pulse 75 , B/P 146 /65 , Respiratory Rate 19 , O2 SAT 97 , Venturi Mask, O2 Flow Rate 10.0 . Vital Sign Comment: EKG Rhythm: SR w/BBB Rhythm change?: N MD Notified?: N - MD Response: Latest Ryan Fall Score: 60 Fall Risk: High Risk Safety Measures: Call light Within Reach, Bed Alarm Zone 1, Side Rails Side Rails x2, Bed position Low and Locked. Fall Precautions: y Yellow Socks y Patient Fall Education y Report given to Abiilo/RN.
[2020-03-10 20:00] VITALS: BP 129/66
[2020-03-10] MEDS: Dyna-Hex 2% Top Sol 2oz TOPIC SCH (21:58)
--- NOTE | 2020-03-10 22:42 | Psychiatric Progress Note ---
Psychiatry Progress Note Psychiatry Progress Note Medications Current Medications Medications (Trade) Dose Ordered Sig/Melissa Route PRN Reason Start Time Stop Time Status Last Admin Dose Admin Acetaminophen/ Hydrocodone Bitart ([place] 5/325) 1 tab Q4H PRN ORAL Moderate Pain (Pain Scale 4-6) 03/06/20 19:00 03/13/20 18:59 03/10/20 06:15 Albuterol/ Ipratropium (Albuterol/ Ipratropium) 3 ml Q6H PRN HHN Shortness of Breath 03/06/20 18:15 03/11/20 18:14 03/10/20 14:59 Allopurinol (allopurinoL) 300 mg DAILY ORAL 03/09/20 14:30 04/08/20 14:29 03/10/20 10:58 Budesonide (Pulmicort) 0.25 mg EVERY 12 HOURS HHN 03/06/20 21:00 06/04/20 20:59 03/10/20 21:04 Ceftriaxone Sodium 1 gm/ Sodium Chloride 55 ml @ 110 mls/hr Q24H IVPB 03/08/20 17:00 03/15/20 16:59 03/10/20 17:52 Chlorhexidine Gluconate (Cherry-Hex 2%) 1 applic DAILY@2000 TOPIC 03/10/20 21:45 06/08/20 21:44 03/10/20 21:58 Citalopram Hydrobromide (CeleXA) 20 mg DAILY ORAL 03/10/20 09:00 04/09/20 08:59 03/10/20 10:59 Clonidine HCl (Catapres Tab) 0.1 mg Q4H PRN ORAL SBP>170 03/06/20 16:15 06/04/20 16:14 Dextrose (Dextrose 50%) 25 ml Q30M PRN IV Hypoglycemia 03/06/20 20:00 06/04/20 19:59 Dextrose (Dextrose 50%) 50 ml Q30M PRN IV Hypoglycemia 03/06/20 20:00 06/04/20 19:59 Diphenhydramine HCl (Benadryl) 50 mg Q6H PRN ORAL Itching 03/06/20 19:00 04/05/20 18:59 Docusate Sodium (Colace) 100 mg THREE TIMES A DAY ORAL 03/08/20 13:00 04/07/20 12:59 03/10/20 18:02 Guaifenesin/ Dextromethorphan (Robitussin DM Syrup) 10 ml Q4H PRN ORAL For Cough 03/06/20 19:00 06/04/20 18:59 03/10/20 06:15 Heparin Sodium (Porcine) (Heparin 5000 units/ml) 5,000 units BID SUBQ 03/07/20 09:00 04/21/20 08:59 03/10/20 18:03 Hydralazine HCl (Apresoline) 50 mg Q6HR ORAL 03/08/20 12:00 06/04/20 17:59 03/10/20 17:59 Insulin Aspart (NovoLOG) BEFORE MEALS AND HS SUBQ 03/06/20 21:00 06/04/20 20:59 03/10/20 20:13 Ipratropium [place] (Atrovent) 500 mcg Q4H PRN HHN Shortness of Breath 03/06/20 19:00 03/11/20 18:59 Lorazepam (Ativan) 1 mg Q6H PRN ORAL For Anxiety 03/09/20 23:30 03/16/20 23:29 Metolazone (Zaroxolyn) 10 mg DAILY ORAL 03/10/20 09:00 04/09/20 08:59 03/10/20 10:57 Morphine Sulfate (Morphine Sulfate) 2 mg Q4H PRN IVP For Pain 03/06/20 18:45 03/13/20 18:44 Pantoprazole (Protonix) 40 mg EVERY 12 HOURS ORAL 03/08/20 21:00 04/07/20 20:59 03/10/20 20:11 Phenol/Menthol (Chloraseptic) 1 spray TIDPRN PRN ORAL For Pain 03/06/20 19:00 06/04/20 18:59 Sevelamer Carbonate (Renvela) 1,600 mg THREE TIMES A DAY ORAL 03/09/20 09:00 06/07/20 08:59 03/10/20 18:02 Tamsulosin HCl (Flomax) 0.4 mg BID ORAL 03/08/20 11:30 04/07/20 11:29 03/10/20 17:56 Vitamin B Complex (Vitamin B Complex) 1 tab DAILY ORAL 03/07/20 09:00 06/05/20 08:59 03/10/20 10:59 Neurological/Psychiatric: Reports: anxiety, depressed, emotional problems Allergies: Coded Allergies: PENICILLINS (Verified Allergy, Unknown, 03/06/20) Uncoded Allergies: SEAFOOD (Allergy, Unknown, 03/06/20) Objective Data Height (Feet): 5 Height (Inches): 9.00 Weight (Pounds): 228 General Appearance: WD/WN, alert, mild distress, alert oriented x3 Additional Comments: alert and oriented times self, place, and situation. Mood is anxious. Affect is blunted, congruent with mood. Thought process is linear and goal oriented. Thought content, no suicidal or homicidal ideation. Cognition is intact. Insight and judgment is fair. Assessment/Plan Status: progressing, deteriorating Assessment/Plan: ASSESSMENT: [place] I Anxiety disorder. [place] II Deferred. [place] III As above. [place] IV Low. [place] V 50. PLAN: 1. We will start the patient on Celexa 20 mg in the morning. 2. Ativan as needed. 3. Provide the patient with reality orientation, supportive therapy, and medication. Kwasi Diaz MD Mar 10, 2020 22:42
[2020-03-11] VITALS: BP_SYST 100; BP_SYST 110; BP_DIAS 65
[2020-03-11 04:00] VITALS: BP 103/66
[2020-03-11] MEDS: HydrALAZINE 50mg tab ORAL SCH ×4 (05:46→23:35)
[2020-03-11] MEDS: NovoLOG Insulin Flexpen SUBQ SCH ×4 (05:46→20:36)
--- NOTE | 2020-03-11 06:58 | NUR ---
NURSE HAND-OFF REPORT: Important Events on Shift: patient continues to require venturi mask. Patient required reeducation not to ambulate due to tunnel catheter. patient is non compliant with care at times, often removes mask and requires reminders to put back on. did not require insulin coverage this morning. Patient Status: full code Diet: renal Pending Orders: none Pending Results/Labs:none Pending MD notification:none Latest Vital Signs: Temperature 97.5 , Pulse 84 , B/P 103 /66 , Respiratory Rate 20 , O2 SAT 100 , Venturi Mask, O2 Flow Rate 10.0 . Vital Sign Comment: within normal limits, requires venturi mask EKG Rhythm: SR w/ BBB Rhythm change?: N MD Notified?: N - MD Response: Latest Ryan Fall Score: 60 Fall Risk: High Risk Safety Measures: Call light Within Reach, Bed Alarm Zone 1, Side Rails Side Rails x2, Bed position Low and Locked. Fall Precautions: Yellow Socks Patient Fall Education Report given to Michelle TAMAYO.
[2020-03-11 07:34] LABS: BASOPHILS % (AUTO) 0.6 % (0.0-2.0); EOSINOPHILS % (AUTO) 0.8 % (0.0-3.0); HEMATOCRIT 34.6 % (42.0-52.0); HEMOGLOBIN 10.9 G/DL (14.2-18.0); LYMPHOCYTES % (AUTO) 9.1 % (20.0-45.0); MEAN CORPUSCULAR VOLUME 88 FL (80-99); MONOCYTES % (AUTO) 8.6 % (1.0-10.0); PLATELET COUNT 212 K/UL (150-450); RED BLOOD COUNT 3.95 M/UL (4.70-6.10); RED CELL DISTRIBUTION WIDTH 14.9 % (11.6-14.8)
[2020-03-11 08:00] VITALS: BP 132/67
[2020-03-11 08:02] LABS: ALBUMIN 2.5 G/DL (3.4-5.0); ALBUMIN/GLOBULIN RATIO 0.7 (1.0-2.7); BILIRUBIN,TOTAL 0.3 MG/DL (0.2-1.0); CALCIUM 8.2 MG/DL (8.5-10.1); CREATININE 3.1 MG/DL (0.55-1.30); PHOSPHORUS 4.2 MG/DL (2.5-4.9); POTASSIUM 4.2 MMOL/L (3.5-5.1)
--- NOTE | 2020-03-11 08:13 | NUR ---
NURSE NOTES: pt in bed resting. placed ventury mask on again. pt takes off ventury mask all the time, and has been educated to keep it on. Also pt has been encourage not to walk because he has a femoral line. Pt was DC as well. Bed in lowest position and locked. call light is within reach. Food is at bed side. Will continue to monitor pt.
[2020-03-11] MEDS: Budesonide HHN 0.25mg/2ml ud HHN SCH ×2 (09:41→20:51)
[2020-03-11] MEDS: Tamsulosin 0.4mg cap ORAL SCH ×2 (09:50→17:17)
[2020-03-11] MEDS: Citalopram Hydrobromide 10mg Tab ORAL SCH (09:50)
[2020-03-11] MEDS: Vitamin B Complex Tab ORAL SCH (09:50)
[2020-03-11] MEDS: Docusate 100mg cap ORAL SCH ×3 (09:51→17:17)
[2020-03-11] MEDS: Heparin 5000 units/ml inj SUBQ SCH ×2 (09:53→17:18)
--- NOTE | 2020-03-11 10:45 | Nephrology Progress Note ---
Assessment/Plan Problem List: (1) Renal failure (ARF), acute on chronic (2) Hypoxia (3) CHF (congestive heart failure) (4) COPD (chronic obstructive pulmonary disease) (5) HTN (hypertension) (6) Hyperkalemia Assessment Acute renal failure Possible underlying chronic kidney disease Hyperkalemia Respiratory failure: Combination of diastolic CHF, COPD, possible pneumonia Hypertension Diabetes mellitus Negative COVID-19 rapid test Plan March 11: Patient was dialyzed 2 days in a row with total of 7 L fluid removal. Today's ABG still suggestive of hypoxia. Patient uncooperative and does not keep the oxygen mask on. Labs reviewed. Renal parameters reasonable. Will attempt dialysis again tomorrow. Will discuss with Dr. Caceres with regard to possible initiation of steroid's, if underlying COPD is a major cause for the current pulmonary state. March 10: Patient was dialyzed yesterday. Over 3 L ultrafiltration done. Patient will be dialyzed again today with ultrafiltration. Continue to monitor pulmonary status. Discussed with . March 09: Seen this morning during hemodialysis. Patient has a femoral catheter for dialysis access. Aim to ultrafiltrate 3 to 4 L. Postdialysis will stop IV Lasix. We will continue to monitor urine output and renal parameters. Phos binders ordered. Per orders. Ultrasound results noted. Previously: Since diuretic treatment is not working, and the patient is volume overloaded and has difficulty breathing with lower extremity edema and possible ascites will aim to dialyze and do ultrafiltration. Adjust blood pressure medication. Kidney ultrasound, results noted Flomax twice daily Adjust the diet. Change to renal Pulmonary toilet Afterload preload reduction Avoid nephrotoxic's Subjective ROS Limited/Unobtainable: No Constitutional: Reports: malaise, weakness Objective Objective Last 24 Hour Vital Signs Date Time Temp Pulse Resp B/P (MAP) Pulse Ox O2 Delivery O2 Flow Rate FiO2 03/11/20 09:41 85 20 95 Venturi Mask 14.0 55 80 20 92 03/11/20 08:00 97.9 80 22 132/67 (88) 97 03/11/20 07:55 93 Venturi Mask 14.0 55 03/11/20 05:46 103/66 03/11/20 04:44 80 22 97 Venturi Mask 14.0 55 03/11/20 04:34 80 22 94 Venturi Mask 14.0 55 03/11/20 04:00 75 03/11/20 04:00 97.5 84 20 103/66 (78) 100 03/11/20 00:00 75 03/11/20 00:00 110/65 03/11/20 00:00 97.7 82 20 110/65 (80) 100 03/10/20 21:14 98 22 96 Venturi Mask 14.0 55 03/10/20 21:04 96 22 93 Venturi Mask 14.0 55 03/10/20 21:00 Venturi Mask 10.0 03/10/20 20:00 97.9 74 20 129/66 (87) 97 03/10/20 20:00 72 03/10/20 19:49 94 Venturi Mask 14.0 55 03/10/20 17:59 146/65 03/10/20 16:00 64 03/10/20 16:00 98.2 75 19 147/71 (96) 97 03/10/20 14:59 78 20 95 Venturi Mask 14.0 55 75 20 93 03/10/20 13:08 Venturi Mask 10.0 03/10/20 12:34 109/71 03/10/20 12:00 98.0 76 21 110/71 (84) 99 03/10/20 12:00 80 Intake and Output 03/10/20 03/11/20 19:00 07:00 Intake Total 480 ml 360 ml Output Total 3000 ml 400 ml Balance -2520 ml -40 ml Intake Oral 480 ml 360 ml Output Urine Total 400 ml Hemodialysis UF 3000 ml Current Medications Medications (Trade) Dose Ordered Sig/Melissa Route PRN Reason Start Time Stop Time Status Last Admin Dose Admin Acetaminophen/ Hydrocodone Bitart ([place] 5/325) 1 tab Q4H PRN ORAL Moderate Pain (Pain Scale 4-6) 03/06/20 19:00 03/13/20 18:59 03/10/20 06:15 Albuterol/ Ipratropium (Albuterol/ Ipratropium) 3 ml Q6H PRN HHN Shortness of Breath 03/06/20 18:15 03/11/20 18:14 03/10/20 14:59 Allopurinol (allopurinoL) 300 mg DAILY ORAL 03/09/20 14:30 04/08/20 14:29 03/11/20 09:51 Budesonide (Pulmicort) 0.25 mg EVERY 12 HOURS HHN 03/06/20 21:00 06/04/20 20:59 03/11/20 09:41 Ceftriaxone Sodium 1 gm/ Sodium Chloride 55 ml @ 110 mls/hr Q24H IVPB 03/08/20 17:00 03/15/20 16:59 03/10/20 17:52 Chlorhexidine Gluconate (Cherry-Hex 2%) 1 applic DAILY@2000 TOPIC 03/10/20 21:45 06/08/20 21:44 03/10/20 21:58 Citalopram Hydrobromide (CeleXA) 20 mg DAILY ORAL 03/10/20 09:00 04/09/20 08:59 03/11/20 09:50 Clonidine HCl (Catapres Tab) 0.1 mg Q4H PRN ORAL SBP>170 03/06/20 16:15 06/04/20 16:14 Dextrose (Dextrose 50%) 25 ml Q30M PRN IV Hypoglycemia 03/06/20 20:00 06/04/20 19:59 Dextrose (Dextrose 50%) 50 ml Q30M PRN IV Hypoglycemia 03/06/20 20:00 06/04/20 19:59 Diphenhydramine HCl (Benadryl) 50 mg Q6H PRN ORAL Itching 03/06/20 19:00 04/05/20 18:59 Docusate Sodium (Colace) 100 mg THREE TIMES A DAY ORAL 03/08/20 13:00 04/07/20 12:59 03/11/20 09:51 Guaifenesin/ Dextromethorphan (Robitussin DM Syrup) 10 ml Q4H PRN ORAL For Cough 03/06/20 19:00 06/04/20 18:59 03/10/20 06:15 Heparin Sodium (Porcine) (Heparin 5000 units/ml) 5,000 units BID SUBQ 03/07/20 09:00 04/21/20 08:59 03/11/20 09:53 Hydralazine HCl (Apresoline) 50 mg Q6HR ORAL 03/08/20 12:00 06/04/20 17:59 03/10/20 17:59 Insulin Aspart (NovoLOG) BEFORE MEALS AND HS SUBQ 03/06/20 21:00 06/04/20 20:59 03/10/20 20:13 Ipratropium [place] (Atrovent) 500 mcg Q4H PRN HHN Shortness of Breath 03/06/20 19:00 03/11/20 18:59 03/11/20 04:34 Lorazepam (Ativan) 1 mg Q6H PRN ORAL For Anxiety 03/09/20 23:30 03/16/20 23:29 Metolazone (Zaroxolyn) 10 mg DAILY ORAL 03/10/20 09:00 04/09/20 08:59 03/11/20 09:50 Morphine Sulfate (Morphine Sulfate) 2 mg Q4H PRN IVP For Pain 03/06/20 18:45 03/13/20 18:44 Pantoprazole (Protonix) 40 mg EVERY 12 HOURS ORAL 03/08/20 21:00 04/07/20 20:59 03/11/20 09:51 Phenol/Menthol (Chloraseptic) 1 spray TIDPRN PRN ORAL For Pain 03/06/20 19:00 06/04/20 18:59 Sevelamer Carbonate (Renvela) 1,600 mg THREE TIMES A DAY ORAL 03/09/20 09:00 06/07/20 08:59 03/11/20 09:50 Tamsulosin HCl (Flomax) 0.4 mg BID ORAL 03/08/20 11:30 04/07/20 11:29 03/11/20 09:50 Vitamin B Complex (Vitamin B Complex) 1 tab DAILY ORAL 03/07/20 09:00 06/05/20 08:59 03/11/20 09:50 Laboratory Tests 03/10/20 12:19: POC Whole Blood Glucose [Pending] 03/10/20 17:13: POC Whole Blood Glucose 94 03/10/20 19:43: POC Whole Blood Glucose [Pending] 03/11/20 05:25: POC Whole Blood Glucose 111H 03/11/20 06:40: White Blood Count 10.0, Red Blood Count 3.95L, Hemoglobin 10.9L, Hematocrit 34.6L, Mean Corpuscular Volume 88, Mean Corpuscular Hemoglobin 27.5, Mean Corpuscular Hemoglobin Concent 31.4L, Red Cell Distribution Width 14.9H, Platelet Count 212, Mean Platelet Volume 8.9, Neutrophils (%) (Auto) 81.0H, Lymphocytes (%) (Auto) 9.1L, Monocytes (%) (Auto) 8.6, Eosinophils (%) (Auto) 0.8, Basophils (%) (Auto) 0.6, Sodium Level 139, Potassium Level 4.2, Chloride Level 101, Carbon Dioxide Level 31, Anion Gap 7, Blood Urea Nitrogen 46H, Creatinine 3.1H, Estimat Glomerular Filtration Rate 24.4, Glucose Level 92, Uric Acid 5.2, Calcium Level 8.2L, Phosphorus Level 4.2, Magnesium Level 2.1, Total Bilirubin 0.3, Aspartate Amino Transf (AST/SGOT) 23, Alanine Aminotransferase (ALT/SGPT) 19, Alkaline Phosphatase 87, C-Reactive Protein, Quantitative 11.7H, Pro-B-Type Natriuretic Peptide 3154H, Total Protein 6.2L, Albumin 2.5L, Globulin 3.7, Albumin/Globulin Ratio 0.7L 03/11/20 08:38: Arterial Blood pH 7.375, Arterial Blood Partial Pressure CO2 50.3H, Arterial Blood Partial Pressure O2 42.5*L, Arterial Blood HCO3 28.2H, Arterial Blood Oxygen Saturation 76.5*L, Arterial Blood Base Excess 2.9H, Oscar Test Positive Height (Feet): 5 Height (Inches): 9.00 Weight (Pounds): 228 General Appearance: moderate distress Cardiovascular: normal rate Respiratory/Chest: decreased breath sounds Abdomen: distended Rene Singh MD Mar 11, 2020 10:45
--- NOTE | 2020-03-11 10:59 | Pulmonology Progress Note ---
Subjective ROS Limited/Unobtainable: No Interval Events: Feeling better; On ventimask Constitutional: Denies: fever HEENT: Repors: no symptoms Respiratory: Reports: no symptoms Cardiovascular: Reports: no symptoms Gastrointestinal/Abdominal: Reports: no symptoms Genitourinary: Reports: no symptoms Allergies: Coded Allergies: PENICILLINS (Verified Allergy, Unknown, 03/06/20) Uncoded Allergies: SEAFOOD (Allergy, Unknown, 03/06/20) Objective Last 24 Hour Vital Signs Date Time Temp Pulse Resp B/P (MAP) Pulse Ox O2 Delivery O2 Flow Rate FiO2 03/11/20 09:41 85 20 95 Venturi Mask 14.0 55 80 20 92 03/11/20 08:00 97.9 80 22 132/67 (88) 97 03/11/20 07:55 93 Venturi Mask 14.0 55 03/11/20 05:46 103/66 03/11/20 04:44 80 22 97 Venturi Mask 14.0 55 03/11/20 04:34 80 22 94 Venturi Mask 14.0 55 03/11/20 04:00 75 03/11/20 04:00 97.5 84 20 103/66 (78) 100 03/11/20 00:00 75 03/11/20 00:00 110/65 03/11/20 00:00 97.7 82 20 110/65 (80) 100 03/10/20 21:14 98 22 96 Venturi Mask 14.0 55 03/10/20 21:04 96 22 93 Venturi Mask 14.0 55 03/10/20 21:00 Venturi Mask 10.0 03/10/20 20:00 97.9 74 20 129/66 (87) 97 03/10/20 20:00 72 03/10/20 19:49 94 Venturi Mask 14.0 55 03/10/20 17:59 146/65 03/10/20 16:00 64 03/10/20 16:00 98.2 75 19 147/71 (96) 97 03/10/20 14:59 78 20 95 Venturi Mask 14.0 55 75 20 93 03/10/20 13:08 Venturi Mask 10.0 03/10/20 12:34 109/71 03/10/20 12:00 98.0 76 21 110/71 (84) 99 03/10/20 12:00 80 Intake and Output 03/10/20 03/11/20 19:00 07:00 Intake Total 480 ml 360 ml Output Total 3000 ml 400 ml Balance -2520 ml -40 ml Intake Oral 480 ml 360 ml Output Urine Total 400 ml Hemodialysis UF 3000 ml General Appearance: no acute distress HEENT: normocephalic Respiratory: chest wall non-tender, lungs clear Cardiovascular: normal peripheral pulses, normal rate Abdomen: normal bowel sounds Laboratory Tests 03/10/20 12:19: POC Whole Blood Glucose [Pending] 03/10/20 17:13: POC Whole Blood Glucose 94 03/10/20 19:43: POC Whole Blood Glucose [Pending] 03/11/20 05:25: POC Whole Blood Glucose 111H 03/11/20 06:40: White Blood Count 10.0, Red Blood Count 3.95L, Hemoglobin 10.9L, Hematocrit 34.6L, Mean Corpuscular Volume 88, Mean Corpuscular Hemoglobin 27.5, Mean Corpuscular Hemoglobin Concent 31.4L, Red Cell Distribution Width 14.9H, Platelet Count 212, Mean Platelet Volume 8.9, Neutrophils (%) (Auto) 81.0H, Lymphocytes (%) (Auto) 9.1L, Monocytes (%) (Auto) 8.6, Eosinophils (%) (Auto) 0.8, Basophils (%) (Auto) 0.6, Sodium Level 139, Potassium Level 4.2, Chloride Level 101, Carbon Dioxide Level 31, Anion Gap 7, Blood Urea Nitrogen 46H, Creatinine 3.1H, Estimat Glomerular Filtration Rate 24.4, Glucose Level 92, Uric Acid 5.2, Calcium Level 8.2L, Phosphorus Level 4.2, Magnesium Level 2.1, Total Bilirubin 0.3, Aspartate Amino Transf (AST/SGOT) 23, Alanine Aminotransferase (ALT/SGPT) 19, Alkaline Phosphatase 87, C-Reactive Protein, Quantitative 11.7H, Pro-B-Type Natriuretic Peptide 3154H, Total Protein 6.2L, Albumin 2.5L, Globulin 3.7, Albumin/Globulin Ratio 0.7L 03/11/20 08:38: Arterial Blood pH 7.375, Arterial Blood Partial Pressure CO2 50.3H, Arterial Blood Partial Pressure O2 42.5*L, Arterial Blood HCO3 28.2H, Arterial Blood Oxygen Saturation 76.5*L, Arterial Blood Base Excess 2.9H, Oscar Test Positive Current Medications Medications (Trade) Dose Ordered Sig/Melissa Route PRN Reason Start Time Stop Time Status Last Admin Dose Admin Acetaminophen/ Hydrocodone Bitart ([place] 5/325) 1 tab Q4H PRN ORAL Moderate Pain (Pain Scale 4-6) 03/06/20 19:00 03/13/20 18:59 03/10/20 06:15 Albuterol/ Ipratropium (Albuterol/ Ipratropium) 3 ml Q6H PRN HHN Shortness of Breath 03/06/20 18:15 03/11/20 18:14 03/10/20 14:59 Allopurinol (allopurinoL) 300 mg DAILY ORAL 03/09/20 14:30 04/08/20 14:29 03/11/20 09:51 Budesonide (Pulmicort) 0.25 mg EVERY 12 HOURS HHN 03/06/20 21:00 06/04/20 20:59 03/11/20 09:41 Ceftriaxone Sodium 1 gm/ Sodium Chloride 55 ml @ 110 mls/hr Q24H IVPB 03/08/20 17:00 03/15/20 16:59 03/10/20 17:52 Chlorhexidine Gluconate (Cherry-Hex 2%) 1 applic DAILY@2000 TOPIC 03/10/20 21:45 06/08/20 21:44 03/10/20 21:58 Citalopram Hydrobromide (CeleXA) 20 mg DAILY ORAL 03/10/20 09:00 04/09/20 08:59 03/11/20 09:50 Clonidine HCl (Catapres Tab) 0.1 mg Q4H PRN ORAL SBP>170 03/06/20 16:15 06/04/20 16:14 Dextrose (Dextrose 50%) 25 ml Q30M PRN IV Hypoglycemia 03/06/20 20:00 06/04/20 19:59 Dextrose (Dextrose 50%) 50 ml Q30M PRN IV Hypoglycemia 03/06/20 20:00 06/04/20 19:59 Diphenhydramine HCl (Benadryl) 50 mg Q6H PRN ORAL Itching 03/06/20 19:00 04/05/20 18:59 Docusate Sodium (Colace) 100 mg THREE TIMES A DAY ORAL 03/08/20 13:00 04/07/20 12:59 03/11/20 09:51 Guaifenesin/ Dextromethorphan (Robitussin DM Syrup) 10 ml Q4H PRN ORAL For Cough 03/06/20 19:00 06/04/20 18:59 03/10/20 06:15 Heparin Sodium (Porcine) (Heparin 5000 units/ml) 5,000 units BID SUBQ 03/07/20 09:00 04/21/20 08:59 03/11/20 09:53 Hydralazine HCl (Apresoline) 50 mg Q8HR ORAL 03/11/20 14:00 06/04/20 17:59 UNV Insulin Aspart (NovoLOG) BEFORE MEALS AND HS SUBQ 03/06/20 21:00 06/04/20 20:59 03/10/20 20:13 Ipratropium [place] (Atrovent) 500 mcg Q4H PRN HHN Shortness of Breath 03/06/20 19:00 03/11/20 18:59 03/11/20 04:34 Lorazepam (Ativan) 1 mg Q6H PRN ORAL For Anxiety 03/09/20 23:30 03/16/20 23:29 Metolazone (Zaroxolyn) 10 mg DAILY ORAL 03/10/20 09:00 04/09/20 08:59 03/11/20 09:50 Morphine Sulfate (Morphine Sulfate) 2 mg Q4H PRN IVP For Pain 03/06/20 18:45 03/13/20 18:44 Pantoprazole (Protonix) 40 mg EVERY 12 HOURS ORAL 03/08/20 21:00 04/07/20 20:59 03/11/20 09:51 Phenol/Menthol (Chloraseptic) 1 spray TIDPRN PRN ORAL For Pain 03/06/20 19:00 06/04/20 18:59 Sevelamer Carbonate (Renvela) 1,600 mg THREE TIMES A DAY ORAL 03/09/20 09:00 06/07/20 08:59 03/11/20 09:50 Tamsulosin HCl (Flomax) 0.4 mg BID ORAL 03/08/20 11:30 04/07/20 11:29 03/11/20 09:50 Vitamin B Complex (Vitamin B Complex) 1 tab DAILY ORAL 03/07/20 09:00 06/05/20 08:59 03/11/20 09:50 Assessment/Plan Assessment/Plan IMPRESSION: 1. Pulmonary infiltrates bilaterally, suspect pulmonary edema. 2. Hypertension. 3. Diabetes mellitus. 4. Renal failure. 5. COPD. 6. Negative COVID 19 rapid test DISCUSSION: Continue breathing treatments with albuterol and Atrovent Negative COVID 19 Broad-spectrum antibiotics will be given. I will follow carefully. HD yesterday Remains hypoxic despite HD x 2 days Will increase FiO2 to NRBM Jacob Caceres M.D. Jacob Caceres MD Mar 11, 2020 10:59
--- NOTE | 2020-03-11 11:15 | NUR ---
NURSE NOTES: unable to do assessment computer was down. Will do assessment in computer tomorrow, charge nurse aware.
--- NOTE | 2020-03-11 11:51 | Infectious Diseases Prog Note ---
Assessment/Plan Assessment/Plan IMPRESSION: 1. Pneumonia. 2. COPD. 3. Pulmonary edema. 4. CHF. 5. Diabetes mellitus. 6. Hypertension. 7. ESRD 8. Anemia. 9. BPH. 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 We will follow up the CXR Subjective ROS Limited/Unobtainable: Yes Constitutional: Reports: no symptoms Respiratory: Reports: shortness of breath Gastrointestinal/Abdominal: Reports: no symptoms Genitourinary: Reports: no symptoms Allergies: Coded Allergies: PENICILLINS (Verified Allergy, Unknown, 03/06/20) Uncoded Allergies: SEAFOOD (Allergy, Unknown, 03/06/20) Objective Last 24 Hour Vital Signs Date Time Temp Pulse Resp B/P (MAP) Pulse Ox O2 Delivery O2 Flow Rate FiO2 03/11/20 09:41 85 20 95 Venturi Mask 14.0 55 80 20 92 03/11/20 08:00 97.9 80 22 132/67 (88) 97 03/11/20 07:55 93 Venturi Mask 14.0 55 03/11/20 05:46 103/66 03/11/20 04:44 80 22 97 Venturi Mask 14.0 55 03/11/20 04:34 80 22 94 Venturi Mask 14.0 55 03/11/20 04:00 75 03/11/20 04:00 97.5 84 20 103/66 (78) 100 03/11/20 00:00 75 03/11/20 00:00 110/65 03/11/20 00:00 97.7 82 20 110/65 (80) 100 03/10/20 21:14 98 22 96 Venturi Mask 14.0 55 03/10/20 21:04 96 22 93 Venturi Mask 14.0 55 03/10/20 21:00 Venturi Mask 10.0 03/10/20 20:00 97.9 74 20 129/66 (87) 97 03/10/20 20:00 72 03/10/20 19:49 94 Venturi Mask 14.0 55 03/10/20 17:59 146/65 03/10/20 16:00 64 03/10/20 16:00 98.2 75 19 147/71 (96) 97 03/10/20 14:59 78 20 95 Venturi Mask 14.0 55 75 20 93 03/10/20 13:08 Venturi Mask 10.0 03/10/20 12:34 109/71 03/10/20 12:00 98.0 76 21 110/71 (84) 99 03/10/20 12:00 80 Height (Feet): 5 Height (Inches): 9.00 Weight (Pounds): 228 General Appearance: no acute distress HEENT: mucous membranes moist Respiratory/Chest: lungs clear, other - oxygen by rebreathing mask Cardiovascular: normal rate Abdomen: soft, non tender Extremities: other - edema decreased Neurologic/Psychiatric: alert, responsive Laboratory Tests Test 03/10/20 12:19 03/10/20 17:13 03/10/20 19:43 03/11/20 05:25 POC Whole Blood Glucose Pending 94 MG/DL (74-106) Pending 111 MG/DL (74-106) H Test 03/11/20 06:40 03/11/20 08:38 White Blood Count 10.0 K/UL (4.8-10.8) Red Blood Count 3.95 M/UL (4.70-6.10) L Hemoglobin 10.9 G/DL (14.2-18.0) L Hematocrit 34.6 % (42.0-52.0) L Mean Corpuscular Volume 88 FL (80-99) Mean Corpuscular Hemoglobin 27.5 PG (27.0-31.0) Mean Corpuscular Hemoglobin Concent 31.4 G/DL (32.0-36.0) L Red Cell Distribution Width 14.9 % (11.6-14.8) H Platelet Count 212 K/UL (150-450) Mean Platelet Volume 8.9 FL (6.5-10.1) Neutrophils (%) (Auto) 81.0 % (45.0-75.0) H Lymphocytes (%) (Auto) 9.1 % (20.0-45.0) L Monocytes (%) (Auto) 8.6 % (1.0-10.0) Eosinophils (%) (Auto) 0.8 % (0.0-3.0) Basophils (%) (Auto) 0.6 % (0.0-2.0) Sodium Level 139 MMOL/L (136-145) Potassium Level 4.2 MMOL/L (3.5-5.1) Chloride Level 101 MMOL/L (98-107) Carbon Dioxide Level 31 MMOL/L (21-32) Anion Gap 7 mmol/L (5-15) Blood Urea Nitrogen 46 mg/dL (7-18) H Creatinine 3.1 MG/DL (0.55-1.30) H Estimat Glomerular Filtration Rate 24.4 mL/min (>60) Glucose Level 92 MG/DL (74-106) Uric Acid 5.2 MG/DL (2.6-7.2) Calcium Level 8.2 MG/DL (8.5-10.1) L Phosphorus Level 4.2 MG/DL (2.5-4.9) Magnesium Level 2.1 MG/DL (1.8-2.4) Total Bilirubin 0.3 MG/DL (0.2-1.0) Aspartate Amino Transf (AST/SGOT) 23 U/L (15-37) Alanine Aminotransferase (ALT/SGPT) 19 U/L (12-78) Alkaline Phosphatase 87 U/L (46-116) C-Reactive Protein, Quantitative 11.7 mg/dL (0.00-0.90) H Pro-B-Type Natriuretic Peptide 3154 pg/mL (0-125) H Total Protein 6.2 G/DL (6.4-8.2) L Albumin 2.5 G/DL (3.4-5.0) L Globulin 3.7 g/dL Albumin/Globulin Ratio 0.7 (1.0-2.7) L Arterial Blood pH 7.375 (7.350-7.450) Arterial Blood Partial Pressure CO2 50.3 mmHg (35.0-45.0) H Arterial Blood Partial Pressure O2 42.5 mmHg (75.0-100.0) Arterial Blood HCO3 28.2 mmol/L (22.0-26.0) H Arterial Blood Oxygen Saturation 76.5 % (95-100) *L Arterial Blood Base Excess 2.9 (-2-2) H Oscar Test Positive Current Medications Medications (Trade) Dose Ordered Sig/Melissa Route PRN Reason Start Time Stop Time Status Last Admin Dose Admin Acetaminophen/ Hydrocodone Bitart ([place] 5/325) 1 tab Q4H PRN ORAL Moderate Pain (Pain Scale 4-6) 03/06/20 19:00 03/13/20 18:59 03/10/20 06:15 Albuterol/ Ipratropium (Albuterol/ Ipratropium) 3 ml Q6H PRN HHN Shortness of Breath 03/06/20 18:15 03/11/20 18:14 03/10/20 14:59 Allopurinol (allopurinoL) 300 mg DAILY ORAL 03/09/20 14:30 04/08/20 14:29 03/11/20 09:51 Budesonide (Pulmicort) 0.25 mg EVERY 12 HOURS HHN 03/06/20 21:00 06/04/20 20:59 03/11/20 09:41 Ceftriaxone Sodium 1 gm/ Sodium Chloride 55 ml @ 110 mls/hr Q24H IVPB 03/08/20 17:00 03/15/20 16:59 03/10/20 17:52 Chlorhexidine Gluconate (Cherry-Hex 2%) 1 applic DAILY@2000 TOPIC 03/10/20 21:45 06/08/20 21:44 03/10/20 21:58 Citalopram Hydrobromide (CeleXA) 20 mg DAILY ORAL 03/10/20 09:00 04/09/20 08:59 03/11/20 09:50 Clonidine HCl (Catapres Tab) 0.1 mg Q4H PRN ORAL SBP>170 03/06/20 16:15 06/04/20 16:14 Dextrose (Dextrose 50%) 25 ml Q30M PRN IV Hypoglycemia 03/06/20 20:00 06/04/20 19:59 Dextrose (Dextrose 50%) 50 ml Q30M PRN IV Hypoglycemia 03/06/20 20:00 06/04/20 19:59 Diphenhydramine HCl (Benadryl) 50 mg Q6H PRN ORAL Itching 03/06/20 19:00 04/05/20 18:59 Docusate Sodium (Colace) 100 mg THREE TIMES A DAY ORAL 03/08/20 13:00 04/07/20 12:59 03/11/20 09:51 Guaifenesin/ Dextromethorphan (Robitussin DM Syrup) 10 ml Q4H PRN ORAL For Cough 03/06/20 19:00 06/04/20 18:59 03/10/20 06:15 Heparin Sodium (Porcine) (Heparin 5000 units/ml) 5,000 units BID SUBQ 11/1/20 09:00 04/21/20 08:59 03/11/20 09:53 Hydralazine HCl (Apresoline) 50 mg Q8HR ORAL 03/11/20 14:00 06/04/20 17:59 Insulin Aspart (NovoLOG) BEFORE MEALS AND HS SUBQ 03/06/20 21:00 06/04/20 20:59 03/10/20 20:13 Ipratropium [place] (Atrovent) 500 mcg Q4H PRN HHN Shortness of Breath 03/06/20 19:00 03/11/20 18:59 03/11/20 04:34 Lorazepam (Ativan) 1 mg Q6H PRN ORAL For Anxiety 03/09/20 23:30 03/16/20 23:29 Methylprednisolone Sodium Succinate (Solu-MEDROL) 40 mg EVERY 6 HOURS IVP 03/11/20 12:00 06/09/20 11:59 Metolazone (Zaroxolyn) 10 mg DAILY ORAL 03/10/20 09:00 04/09/20 08:59 03/11/20 09:50 Morphine Sulfate (Morphine Sulfate) 2 mg Q4H PRN IVP For Pain 03/06/20 18:45 03/13/20 18:44 Pantoprazole (Protonix) 40 mg EVERY 12 HOURS ORAL 03/08/20 21:00 04/07/20 20:59 03/11/20 09:51 Phenol/Menthol (Chloraseptic) 1 spray TIDPRN PRN ORAL For Pain 03/06/20 19:00 06/04/20 18:59 Sevelamer Carbonate (Renvela) 1,600 mg THREE TIMES A DAY ORAL 03/09/20 09:00 06/07/20 08:59 03/11/20 09:50 Tamsulosin HCl (Flomax) 0.4 mg BID ORAL 03/08/20 11:30 04/07/20 11:29 03/11/20 09:50 Vitamin B Complex (Vitamin B Complex) 1 tab DAILY ORAL 03/07/20 09:00 06/05/20 08:59 03/11/20 09:50 Brett Pleitez MD Mar 11, 2020 11:50
[2020-03-11 12:00] VITALS: BP 133/67
[2020-03-11] MEDS: Solu-MEDROL 40mg Inj IVP SCH ×2 (12:13→17:17)
--- NOTE | 2020-03-11 13:16 | Diagnostic Imaging Report ---
Indication: Shortness of breath Technique: One view of the chest Comparison: 03/06/2020 Findings: Large right pleural effusion, left lung infiltrates, bilateral interstitial congestion persists, unchanged. There is probably a small amount of pleural fluid on the left as well. Impression: Unchanged, over 5 days, findings as above.
[2020-03-11 16:00] VITALS: BP 133/72
--- NOTE | 2020-03-11 17:05 | General Progress Note ---
Subjective ROS Limited/Unobtainable: Yes Allergies: Coded Allergies: PENICILLINS (Verified Allergy, Unknown, 03/06/20) Uncoded Allergies: SEAFOOD (Allergy, Unknown, 03/06/20) Objective Last 24 Hour Vital Signs Date Time Temp Pulse Resp B/P (MAP) Pulse Ox O2 Delivery O2 Flow Rate FiO2 03/11/20 16:00 78 03/11/20 15:02 156/82 03/11/20 12:00 72 03/11/20 09:41 85 20 95 Venturi Mask 14.0 55 80 20 92 03/11/20 08:00 97.9 80 22 132/67 (88) 97 03/11/20 08:00 80 03/11/20 07:55 93 Venturi Mask 14.0 55 03/11/20 05:46 103/66 03/11/20 04:44 80 22 97 Venturi Mask 14.0 55 03/11/20 04:34 80 22 94 Venturi Mask 14.0 55 03/11/20 04:00 75 03/11/20 04:00 97.5 84 20 103/66 (78) 100 03/11/20 00:00 75 03/11/20 00:00 110/65 03/11/20 00:00 97.7 82 20 110/65 (80) 100 03/10/20 21:14 98 22 96 Venturi Mask 14.0 55 03/10/20 21:04 96 22 93 Venturi Mask 14.0 55 03/10/20 21:00 Venturi Mask 10.0 03/10/20 20:00 97.9 74 20 129/66 (87) 97 03/10/20 20:00 72 03/10/20 19:49 94 Venturi Mask 14.0 55 03/10/20 17:59 146/65 Intake and Output 03/10/20 03/11/20 19:00 07:00 Intake Total 480 ml 360 ml Output Total 3000 ml 400 ml Balance -2520 ml -40 ml Intake Oral 480 ml 360 ml Output Urine Total 400 ml Hemodialysis UF 3000 ml Laboratory Tests 03/10/20 17:13: POC Whole Blood Glucose 94 03/10/20 19:43: POC Whole Blood Glucose [Pending] 03/11/20 05:25: POC Whole Blood Glucose 111H 03/11/20 06:40: White Blood Count 10.0, Red Blood Count 3.95L, Hemoglobin 10.9L, Hematocrit 34.6L, Mean Corpuscular Volume 88, Mean Corpuscular Hemoglobin 27.5, Mean Corpuscular Hemoglobin Concent 31.4L, Red Cell Distribution Width 14.9H, Platelet Count 212, Mean Platelet Volume 8.9, Neutrophils (%) (Auto) 81.0H, Lymphocytes (%) (Auto) 9.1L, Monocytes (%) (Auto) 8.6, Eosinophils (%) (Auto) 0.8, Basophils (%) (Auto) 0.6, Sodium Level 139, Potassium Level 4.2, Chloride Level 101, Carbon Dioxide Level 31, Anion Gap 7, Blood Urea Nitrogen 46H, Creatinine 3.1H, Estimat Glomerular Filtration Rate 24.4, Glucose Level 92, Uric Acid 5.2, Calcium Level 8.2L, Phosphorus Level 4.2, Magnesium Level 2.1, Total Bilirubin 0.3, Aspartate Amino Transf (AST/SGOT) 23, Alanine Aminotransferase (ALT/SGPT) 19, Alkaline Phosphatase 87, C-Reactive Protein, Quantitative 11.7H, Pro-B-Type Natriuretic Peptide 3154H, Total Protein 6.2L, Albumin 2.5L, Globulin 3.7, Albumin/Globulin Ratio 0.7L 03/11/20 08:38: Arterial Blood pH 7.375, Arterial Blood Partial Pressure CO2 50.3H, Arterial Blood Partial Pressure O2 42.5*L, Arterial Blood HCO3 28.2H, Arterial Blood Oxygen Saturation 76.5*L, Arterial Blood Base Excess 2.9H, Oscar Test Positive 03/11/20 12:20: POC Whole Blood Glucose [Pending] Height (Feet): 5 Height (Inches): 9.00 Weight (Pounds): 228 Assessment/Plan Problem List: (1) COPD (chronic obstructive pulmonary disease) ICD Codes: J44.9 - Chronic obstructive pulmonary disease, unspecified SNOMED: 07818450 Qualifiers: Qualified Codes: J44.1 - Chronic obstructive pulmonary disease with (acute) exacerbation (2) CHF (congestive heart failure) ICD Codes: I50.9 - Heart failure, unspecified SNOMED: 53976108 Qualifiers: Qualified Codes: I50.9 - Heart failure, unspecified (3) Hypoxia ICD Codes: R09.02 - Hypoxemia SNOMED: 547043670 (4) Renal failure (ARF), acute on chronic ICD Codes: N17.9 - Acute kidney failure, unspecified; N18.9 - Chronic kidney disease, unspecified SNOMED: 076060705 Qualifiers: Qualified Codes: N17.9 - Acute kidney failure, unspecified; N18.4 - Chronic kidney disease, stage 4 (severe) Status: progressing, deteriorating Assessment/Plan: on oxygen chf copd somewhat improving on oxygen reviewed chart John Chavez MD Mar 11, 2020 17:05
[2020-03-11] MEDS: cefTRIAXone 1 GM in NS 55 ML IVPB SCH (17:16)
--- NOTE | 2020-03-11 18:24 | Cardiac Electrophysiology PN ---
Assessment/Plan Assessment/Plan 1. Severe bilateral lower extremity edema with shortness of breath and BNP of almost 4000. EF 60%. Due to CHF due to diastolic dysfunction renal failure as well as COPD. Now on HD and Zaroxyline 2. Hypertension. On HD, Zaroxyline 10 daily, hydralazine 50 mg q 6hr and p.r.n. clonidine. 3. Renal failure, creatinine was 3.9 that increased to >[address] DW Dr. Singh. Started on HD 4. COPD. DW RN Subjective Subjective No CP. SOB better after HD. ECG SR with RBBB, LAFB Got RFV Janusz and had HD 4 liters on 03/09 and 3 liters on 03/10 Noncompliant on NRB FM Objective Last 24 Hour Vital Signs Date Time Temp Pulse Resp B/P (MAP) Pulse Ox O2 Delivery O2 Flow Rate FiO2 03/11/20 16:00 78 03/11/20 15:02 156/82 03/11/20 12:00 72 03/11/20 09:41 85 20 95 Venturi Mask 14.0 55 80 20 92 03/11/20 08:00 97.9 80 22 132/67 (88) 97 03/11/20 08:00 80 03/11/20 07:55 93 Venturi Mask 14.0 55 03/11/20 05:46 103/66 03/11/20 04:44 80 22 97 Venturi Mask 14.0 55 03/11/20 04:34 80 22 94 Venturi Mask 14.0 55 03/11/20 04:00 75 03/11/20 04:00 97.5 84 20 103/66 (78) 100 03/11/20 00:00 75 03/11/20 00:00 110/65 03/11/20 00:00 97.7 82 20 110/65 (80) 100 03/10/20 21:14 98 22 96 Venturi Mask 14.0 55 03/10/20 21:04 96 22 93 Venturi Mask 14.0 55 03/10/20 21:00 Venturi Mask 10.0 03/10/20 20:00 97.9 74 20 129/66 (87) 97 03/10/20 20:00 72 03/10/20 19:49 94 Venturi Mask 14.0 55 Intake and Output 03/10/20 03/11/20 19:00 07:00 Intake Total 480 ml 360 ml Output Total 3000 ml 400 ml Balance -2520 ml -40 ml Intake Oral 480 ml 360 ml Output Urine Total 400 ml Hemodialysis UF 3000 ml Laboratory Tests Test 03/10/20 19:43 03/11/20 05:25 03/11/20 06:40 03/11/20 08:38 POC Whole Blood Glucose Pending 111 MG/DL (74-106) H White Blood Count 10.0 K/UL (4.8-10.8) Red Blood Count 3.95 M/UL (4.70-6.10) L Hemoglobin 10.9 G/DL (14.2-18.0) L Hematocrit 34.6 % (42.0-52.0) L Mean Corpuscular Volume 88 FL (80-99) Mean Corpuscular Hemoglobin 27.5 PG (27.0-31.0) Mean Corpuscular Hemoglobin Concent 31.4 G/DL (32.0-36.0) L Red Cell Distribution Width 14.9 % (11.6-14.8) H Platelet Count 212 K/UL (150-450) Mean Platelet Volume 8.9 FL (6.5-10.1) Neutrophils (%) (Auto) 81.0 % (45.0-75.0) H Lymphocytes (%) (Auto) 9.1 % (20.0-45.0) L Monocytes (%) (Auto) 8.6 % (1.0-10.0) Eosinophils (%) (Auto) 0.8 % (0.0-3.0) Basophils (%) (Auto) 0.6 % (0.0-2.0) Sodium Level 139 MMOL/L (136-145) Potassium Level 4.2 MMOL/L (3.5-5.1) Chloride Level 101 MMOL/L (98-107) Carbon Dioxide Level 31 MMOL/L (21-32) Anion Gap 7 mmol/L (5-15) Blood Urea Nitrogen 46 mg/dL (7-18) H Creatinine 3.1 MG/DL (0.55-1.30) H Estimat Glomerular Filtration Rate 24.4 mL/min (>60) Glucose Level 92 MG/DL (74-106) Uric Acid 5.2 MG/DL (2.6-7.2) Calcium Level 8.2 MG/DL (8.5-10.1) L Phosphorus Level 4.2 MG/DL (2.5-4.9) Magnesium Level 2.1 MG/DL (1.8-2.4) Total Bilirubin 0.3 MG/DL (0.2-1.0) Aspartate Amino Transf (AST/SGOT) 23 U/L (15-37) Alanine Aminotransferase (ALT/SGPT) 19 U/L (12-78) Alkaline Phosphatase 87 U/L (46-116) C-Reactive Protein, Quantitative 11.7 mg/dL (0.00-0.90) H Pro-B-Type Natriuretic Peptide 3154 pg/mL (0-125) H Total Protein 6.2 G/DL (6.4-8.2) L Albumin 2.5 G/DL (3.4-5.0) L Globulin 3.7 g/dL Albumin/Globulin Ratio 0.7 (1.0-2.7) L Arterial Blood pH 7.375 (7.350-7.450) Arterial Blood Partial Pressure CO2 50.3 mmHg (35.0-45.0) H Arterial Blood Partial Pressure O2 42.5 mmHg (75.0-100.0) Arterial Blood HCO3 28.2 mmol/L (22.0-26.0) H Arterial Blood Oxygen Saturation 76.5 % (95-100) *L Arterial Blood Base Excess 2.9 (-2-2) H Oscar Test Positive Test 03/11/20 12:20 03/11/20 17:07 POC Whole Blood Glucose Pending Pending Objective HEAD AND NECK: Positive JVD. LUNGS: Decreased breath sounds. CARDIOVASCULAR: Regular S1 and S2 with no gallop. ABDOMEN: Soft. EXTREMITIES: 3+ pitting edema in lower extremities as well as 2+ pitting edema in right arm. RFV Ponce Wesley MD Mar 11, 2020 18:24
[2020-03-11 20:00] VITALS: BP 129/65
--- NOTE | 2020-03-11 20:22 | NUR ---
NURSE HAND-OFF REPORT: Important Events on Shift:pt is keeps taking off non debreather mask, pt has been educated about keeping it on, states he understands but continues to take off mask. He will have dialysis tomorrow night RN will call to schedule Patient Status: full Diet: Renal Pending Orders: Pending Results/Labs: Pending MD notification: Latest Vital Signs: Temperature 97.9 , Pulse 78 , B/P 156 /82 , Respiratory Rate 22 , O2 SAT 93 , Venturi Mask, O2 Flow Rate 14.0 . Vital Sign Comment: EKG Rhythm: SR w/BBB Rhythm change?: N MD Notified?: N - MD Response: Latest Ryan Fall Score: 60 Fall Risk: High Risk Safety Measures: Call light Within Reach, Bed Alarm Zone 1, Side Rails Side Rails x2, Bed position Low and Locked. Fall Precautions: y Yellow Socks y Patient Fall Education Report given to Nilson Cortez/RN.
--- NOTE | 2020-03-11 20:25 | NUR ---
NURSE NOTES: Patient received from BELKIS Martinez. Patient is awake, alert and oriented x 4. Patient is watching TV and and has no complaints as of the moment. Patient is on non-rebreather mask satting at 98%, no signs of respiratory distress. Patient is able to stand up but needs to be assisted. Patient as a central line on his right femoral, patent and flushed. Bed is in the lowest position, call light within reach. Will continue to monitor.
[2020-03-11] MEDS: Dyna-Hex 2% Top Sol 2oz TOPIC SCH (20:31)
[2020-03-12] VITALS: BP 140/87
--- NOTE | 2020-03-12 00:15 | NUR ---
NURSE NOTES: RECEIVED REPORT FROM BELKIS MUHAMMAD. PATIENT ASLEEP IN BED IN HIGH GONZALEZ'S POSITION, EASILY AROUSABLE, OPENS EYES SPONTANEOUSLY- OX4 WITH SOME CONFUSION/FORGETFULNESS, VERBALLY RESPONSIVE AND ABLE TO MAKE NEEDS KNOWN. NO COMPLAINTS OF PAIN OR DISCOMFORT AT THIS TIME. PATIENT NOTED TO BE 15 LPM VIA NRB, RR24, SAO2 99%- NO S/SX OF DISTRESS AT THIS TIME. PATIENT HAS RIGHT FEMORAL NICKY CATHETER, ASYMPTOMATIC, DRESSING DRY & INTACT. EDUCATED PATIENT ON FALL PREVENTION- REMINDED PATIENT TO REMAIN IN BED AND CALL FOR ASSISTANCE. CONTACT ISOLATION MAINTAINED. BED LOCKED AND IN LOWEST POSITION, SIDERAILS UP X 3. URINAL WITHIN REACH. CALL LIGHT WITHIN REACH, WILL CONTINUE TO MONITOR PER POC.
[2020-03-12] MEDS: Solu-MEDROL 40mg Inj IVP SCH ×4 (00:17→18:00)
[2020-03-12] MEDS: guaiFENesin /DM 10ml syrup ORAL PRN (00:51)
--- NOTE | 2020-03-12 03:05 | NUR ---
NURSE NOTES: PATIENT SEEN REMOVING NRB DESPITE BEING EDUCATED ON IMPORTANCE OF KEEPING IT ON. PATIENT INSISTS ON TAKING NRB OFF AT HIS OWN DISCRETION.
[2020-03-12 04:00] VITALS: BP 143/75
[2020-03-12] MEDS: HydrALAZINE 50mg tab ORAL SCH ×3 (05:38→22:04)
[2020-03-12] MEDS: NovoLOG Insulin Flexpen SUBQ SCH ×4 (05:44→22:06)
[2020-03-12 06:22] LABS: HEMATOCRIT 35.1 % (42.0-52.0); HEMOGLOBIN 10.8 G/DL (14.2-18.0); MEAN CORPUSCULAR VOLUME 90 FL (80-99); PLATELET COUNT 194 K/UL (150-450); RED BLOOD COUNT 3.92 M/UL (4.70-6.10); RED CELL DISTRIBUTION WIDTH 14.6 % (11.6-14.8); WHITE BLOOD COUNT 9.2 K/UL (4.8-10.8)
--- NOTE | 2020-03-12 06:24 | NUR ---
NURSE HAND-OFF REPORT: Important Events on Shift: UNCOOPERATIVE WITH CARE (REMOVING MASK OFF, INSISTING ON AMBULATING TO RESTROOM) Patient Status: STABLE Diet: RENAL Pending Orders: FOR HD TODAY 03/12 Pending Results/Labs: AM LABS Pending MD notification: N/A Latest Vital Signs: Temperature 96.9 , Pulse 87 , B/P 140 /71 , Respiratory Rate 24 , O2 SAT 98 , Non-Rebreather, O2 Flow Rate 15.0 . Vital Sign Comment: STABLE EKG Rhythm: SR w/BBB Rhythm change?: N MD Notified?: N - MD Response: Latest Ryan Fall Score: 60 Fall Risk: High Risk Safety Measures: Call light Within Reach, Bed Alarm Zone 1, Side Rails Side Rails x2, Bed position Low and Locked. Fall Precautions: Yellow Socks Yellow Gown Patient Fall Education Report given to WILL AMEND ONCE REPORT GIVEN TO ASSIGNED NURSE. Addendum: 03/12/20 at 0728 by Casi Taveras RN REPORT GIVEN TO BELKIS LI.
--- NOTE | 2020-03-12 06:32 | NUR ---
NURSE NOTES: PER BELKIS MUHAMMAD, [facility] ALREADY INFORMED ABOUT HD ORDER FOR TODAY, 03/12; S/W THOMAS.
[2020-03-12 06:56] LABS: ALBUMIN 2.5 G/DL (3.4-5.0); ALBUMIN/GLOBULIN RATIO 0.6 (1.0-2.7); BILIRUBIN,TOTAL 0.3 MG/DL (0.2-1.0); CALCIUM 8.4 MG/DL (8.5-10.1); CREATININE 3.8 MG/DL (0.55-1.30); PHOSPHORUS 5.6 MG/DL (2.5-4.9); POTASSIUM 5.1 MMOL/L (3.5-5.1)
[2020-03-12 08:00] VITALS: BP 133/71
--- NOTE | 2020-03-12 08:23 | NUR ---
NURSE NOTES: pt. in bed and is wearing mask. room is a mess urine and trash on the ground. air sampling and monitoring is on pt, no signs of cardiac or respiratory distress. confirmed pt is having dialysis today, clothes designer will be here 10-11. Bed is in lowest position, call light within reach. will continue to monitor pt
[2020-03-12] MEDS: Budesonide HHN 0.25mg/2ml ud HHN SCH ×2 (09:58→20:51)
[2020-03-12] MEDS: Docusate 100mg cap ORAL SCH ×3 (10:16→17:58)
[2020-03-12] MEDS: Vitamin B Complex Tab ORAL SCH (10:16)
[2020-03-12] MEDS: Tamsulosin 0.4mg cap ORAL SCH ×2 (10:16→17:57)
[2020-03-12] MEDS: Citalopram Hydrobromide 10mg Tab ORAL SCH (10:17)
[2020-03-12] MEDS: Heparin 5000 units/ml inj SUBQ SCH ×2 (10:20→18:00)
--- NOTE | 2020-03-12 10:23 | Pulmonology Progress Note ---
Subjective ROS Limited/Unobtainable: Yes Interval Events: Feeling better; On ventimask Constitutional: Reports: no symptoms HEENT: Repors: no symptoms Respiratory: Reports: no symptoms Cardiovascular: Reports: no symptoms Gastrointestinal/Abdominal: Reports: no symptoms Genitourinary: Reports: no symptoms Allergies: Coded Allergies: PENICILLINS (Verified Allergy, Unknown, 03/06/20) Uncoded Allergies: SEAFOOD (Allergy, Unknown, 03/06/20) Objective Last 24 Hour Vital Signs Date Time Temp Pulse Resp B/P (MAP) Pulse Ox O2 Delivery O2 Flow Rate FiO2 03/12/20 09:58 80 20 94 Non-Rebreather 15.0 100 83 20 93 03/12/20 08:41 100 Non-Rebreather 15.0 100 03/12/20 08:00 86 03/12/20 08:00 97.5 89 24 133/71 (91) 99 03/12/20 05:38 140/71 03/12/20 04:00 87 03/12/20 04:00 96.9 89 24 143/75 (97) 98 03/12/20 00:00 85 03/12/20 00:00 96.6 80 24 140/87 (104) 99 03/11/20 23:35 149/79 03/11/20 21:00 Non-Rebreather 15.0 03/11/20 20:53 87 20 95 Non-Rebreather 15.0 100 85 20 96 03/11/20 20:00 86 03/11/20 20:00 97.7 77 24 129/65 (86) 95 03/11/20 19:21 95 Non-Rebreather 15.0 100 03/11/20 16:00 78 03/11/20 16:00 97.5 75 22 133/72 (92) 95 03/11/20 15:02 156/82 03/11/20 12:00 97.7 75 20 133/67 (89) 96 03/11/20 12:00 72 Intake and Output 03/11/20 03/12/20 19:00 07:00 Intake Total 360 ml 480 ml Balance 360 ml 480 ml Intake Oral 360 ml 480 ml # Voids 3 General Appearance: no acute distress HEENT: normocephalic Respiratory: chest wall non-tender, decreased breath sounds Cardiovascular: normal peripheral pulses, normal rate Abdomen: normal bowel sounds Laboratory Tests 03/11/20 12:20: POC Whole Blood Glucose [Pending] 03/11/20 17:07: POC Whole Blood Glucose [Pending] 03/11/20 20:33: POC Whole Blood Glucose 164H 03/12/20 05:37: POC Whole Blood Glucose 270H 03/12/20 05:50: White Blood Count 9.2, Red Blood Count 3.92L, Hemoglobin 10.8L, Hematocrit 35.1L , Mean Corpuscular Volume 90, Mean Corpuscular Hemoglobin 27.6, Mean Corpuscular Hemoglobin Concent 30.8L, Red Cell Distribution Width 14.6, Platelet Count 194, Mean Platelet Volume 8.5, Neutrophils (%) (Auto) , Lymphocytes (%) (Auto) , Monocytes (%) (Auto) , Eosinophils (%) (Auto) , Basophils (%) (Auto) , Sodium Level 135L, Potassium Level 5.1, Chloride Level 99, Carbon Dioxide Level 29, Anion Gap 7, Blood Urea Nitrogen 61H, Creatinine 3.8H, Estimat Glomerular Filtration Rate 19.3, Glucose Level 268#H, Uric Acid 5.8, Calcium Level 8.4L, Phosphorus Level 5.6H, Magnesium Level 2.4, Total Bilirubin 0.3, Aspartate Amino Transf (AST/SGOT) 17, Alanine Aminotransferase (ALT/SGPT) 18, Alkaline Phosphatase 101, C-Reactive Protein, Quantitative 11.3H, Pro-B-Type Natriuretic Peptide 5072H, Total Protein 6.5, Albumin 2.5L, Globulin 4.0, Albumin/Globulin Ratio 0.6L Current Medications Medications (Trade) Dose Ordered Sig/Melissa Route PRN Reason Start Time Stop Time Status Last Admin Dose Admin Acetaminophen/ Hydrocodone Bitart ([place] 5/325) 1 tab Q4H PRN ORAL Moderate Pain (Pain Scale 4-6) 03/06/20 19:00 03/13/20 18:59 03/10/20 06:15 Allopurinol (allopurinoL) 300 mg DAILY ORAL 03/09/20 14:30 04/08/20 14:29 03/12/20 10:17 Budesonide (Pulmicort) 0.25 mg EVERY 12 HOURS HHN 03/06/20 21:00 06/04/20 20:59 03/12/20 09:58 Ceftriaxone Sodium 1 gm/ Sodium Chloride 55 ml @ 110 mls/hr Q24H IVPB 03/08/20 17:00 03/15/20 16:59 03/11/20 17:16 Chlorhexidine Gluconate (Cherry-Hex 2%) 1 applic DAILY@2000 TOPIC 03/10/20 21:45 06/08/20 21:44 03/11/20 20:31 Citalopram Hydrobromide (CeleXA) 20 mg DAILY ORAL 03/10/20 09:00 04/09/20 08:59 03/12/20 10:17 Clonidine HCl (Catapres Tab) 0.1 mg Q4H PRN ORAL SBP>170 03/06/20 16:15 06/04/20 16:14 Dextrose (Dextrose 50%) 25 ml Q30M PRN IV Hypoglycemia 03/06/20 20:00 06/04/20 19:59 Dextrose (Dextrose 50%) 50 ml Q30M PRN IV Hypoglycemia 03/06/20 20:00 06/04/20 19:59 Diphenhydramine HCl (Benadryl) 50 mg Q6H PRN ORAL Itching 03/06/20 19:00 04/05/20 18:59 Docusate Sodium (Colace) 100 mg THREE TIMES A DAY ORAL 03/08/20 13:00 04/07/20 12:59 03/12/20 10:16 Guaifenesin/ Dextromethorphan (Robitussin DM Syrup) 10 ml Q4H PRN ORAL For Cough 03/06/20 19:00 06/04/20 18:59 03/12/20 00:51 Heparin Sodium (Porcine) (Heparin 5000 units/ml) 5,000 units BID SUBQ 03/07/20 09:00 04/21/20 08:59 03/12/20 10:20 Hydralazine HCl (Apresoline) 50 mg Q8HR ORAL 03/11/20 14:00 06/04/20 17:59 03/12/20 05:38 Insulin Aspart (NovoLOG) BEFORE MEALS AND HS SUBQ 03/06/20 21:00 06/04/20 20:59 03/12/20 05:44 Lorazepam (Ativan) 1 mg Q6H PRN ORAL For Anxiety 03/09/20 23:30 03/16/20 23:29 Methylprednisolone Sodium Succinate (Solu-MEDROL) 40 mg EVERY 6 HOURS IVP 03/11/20 12:00 06/09/20 11:59 03/12/20 05:39 Metolazone (Zaroxolyn) 10 mg DAILY ORAL 03/10/20 09:00 04/09/20 08:59 03/12/20 10:17 Morphine Sulfate (Morphine Sulfate) 2 mg Q4H PRN IVP For Pain 03/06/20 18:45 03/13/20 18:44 Pantoprazole (Protonix) 40 mg EVERY 12 HOURS ORAL 03/08/20 21:00 04/07/20 20:59 03/12/20 10:16 Phenol/Menthol (Chloraseptic) 1 spray TIDPRN PRN ORAL For Pain 03/06/20 19:00 06/04/20 18:59 Sevelamer Carbonate (Renvela) 1,600 mg THREE TIMES A DAY ORAL 03/09/20 09:00 06/07/20 08:59 03/12/20 10:17 Tamsulosin HCl (Flomax) 0.4 mg BID ORAL 03/08/20 11:30 04/07/20 11:29 03/12/20 10:16 Vitamin B Complex (Vitamin B Complex) 1 tab DAILY ORAL 03/07/20 09:00 06/05/20 08:59 03/12/20 10:16 Assessment/Plan Assessment/Plan IMPRESSION: 1. Pulmonary infiltrates bilaterally, suspect pulmonary edema. Has persistent opacity R base; will request thoracentesis 2. Hypertension. 3. Diabetes mellitus. 4. Renal failure. 5. COPD. 6. Negative COVID 19 rapid test DISCUSSION: Continue breathing treatments with albuterol and Atrovent Negative COVID 19 Broad-spectrum antibiotics will be given. I will follow carefully. HD to continue Will request thoracentesis Remains hypoxic despite HD x 2 days Will increase FiO2 to NRBM Jie Rivera Omar Syed MD Mar 12, 2020 10:23
--- NOTE | 2020-03-12 10:54 | NUR ---
RD ASSESSMENT & RECOMMENDATIONS SEE CARE ACTIVITY FOR COMPLETE ASSESSMENT DAILY ESTIMATED NEEDS: Needs based on Renal dysfunction, to start HD, obesity/ 80.5kg abw 23-28 kcals/kg [id number] total kcals 1.25-1.8 g protein/kg 100-144 g total protein Fluids per MD mL/kg total fluid mLs NUTRITION DIAGNOSIS: Altered nutrition related lab values R/T ARF now on HD, DM as evidenced by elev creat (3.8), elev K (5.7-> wnl), elev Phos (6.1), elev BNP (5072), elev BG (268 92 117) and POC glu (164 [phone]). CURRENT DIET:Regular -> Renal PO DIET RECOMMENDATIONS: RENAL + CCHO MED ADDITIONAL RECOMMENDATIONS: * Daily standing wt * Monitor for continuity of HD (first HD on 03/08) -> monitor renal fxn and lytes (creat 3.8, phos 5.6) * Check A1C for evaluation of glycemic control Monitor for hyperglycemia while on Solumedrol * Nephrovite x 1
--- NOTE | 2020-03-12 11:37 | Nephrology Progress Note ---
Assessment/Plan Problem List: (1) Renal failure (ARF), acute on chronic (2) Hypoxia (3) CHF (congestive heart failure) (4) COPD (chronic obstructive pulmonary disease) (5) HTN (hypertension) (6) Hyperkalemia Assessment Acute renal failure Possible underlying chronic kidney disease Hyperkalemia Respiratory failure: Combination of diastolic CHF, COPD, possible pneumonia Hypertension Diabetes mellitus Negative COVID-19 rapid test Plan March 12: Due for dialysis today. Discussed with pulmonary, patient due for right pleural effusion tap today. Labs reviewed. Continue per current management. Continue to monitor renal parameters. March 11: Patient was dialyzed 2 days in a row with total of 7 L fluid removal. Today's ABG still suggestive of hypoxia. Patient uncooperative and does not keep the oxygen mask on. Labs reviewed. Renal parameters reasonable. Will attempt dialysis again tomorrow. Will discuss with Dr. Caceres with regard to possible initiation of steroid's, if underlying COPD is a major cause for the current pulmonary state. March 10: Patient was dialyzed yesterday. Over 3 L ultrafiltration done. Patient will be dialyzed again today with ultrafiltration. Continue to monitor pulmonary status. Discussed with . March 09: Seen this morning during hemodialysis. Patient has a femoral catheter for dialysis access. Aim to ultrafiltrate 3 to 4 L. Postdialysis will stop IV Lasix. We will continue to monitor urine output and renal parameters. Phos binders ordered. Per orders. Ultrasound results noted. Previously: Since diuretic treatment is not working, and the patient is volume overloaded and has difficulty breathing with lower extremity edema and possible ascites will aim to dialyze and do ultrafiltration. Adjust blood pressure medication. Kidney ultrasound, results noted Flomax twice daily Adjust the diet. Change to renal Pulmonary toilet Afterload preload reduction Avoid nephrotoxic's Subjective ROS Limited/Unobtainable: No Constitutional: Reports: malaise, weakness Objective Objective Last 24 Hour Vital Signs Date Time Temp Pulse Resp B/P (MAP) Pulse Ox O2 Delivery O2 Flow Rate FiO2 03/12/20 09:58 80 20 94 Non-Rebreather 15.0 100 83 20 93 03/12/20 08:41 100 Non-Rebreather 15.0 100 03/12/20 08:00 86 03/12/20 08:00 97.5 89 24 133/71 (91) 99 03/12/20 05:38 140/71 11/6/20 04:00 87 03/12/20 04:00 96.9 89 24 143/75 (97) 98 03/12/20 00:00 85 03/12/20 00:00 96.6 80 24 140/87 (104) 99 03/11/20 23:35 149/79 03/11/20 21:00 Non-Rebreather 15.0 03/11/20 20:53 87 20 95 Non-Rebreather 15.0 100 85 20 96 03/11/20 20:00 86 03/11/20 20:00 97.7 77 24 129/65 (86) 95 03/11/20 19:21 95 Non-Rebreather 15.0 100 03/11/20 16:00 78 03/11/20 16:00 97.5 75 22 133/72 (92) 95 03/11/20 15:02 156/82 03/11/20 12:00 97.7 75 20 133/67 (89) 96 03/11/20 12:00 72 Intake and Output 03/11/20 03/12/20 19:00 07:00 Intake Total 360 ml 480 ml Balance 360 ml 480 ml Intake Oral 360 ml 480 ml # Voids 3 Current Medications Medications (Trade) Dose Ordered Sig/Melissa Route PRN Reason Start Time Stop Time Status Last Admin Dose Admin Acetaminophen/ Hydrocodone Bitart ([place] 5/325) 1 tab Q4H PRN ORAL Moderate Pain (Pain Scale 4-6) 03/06/20 19:00 03/13/20 18:59 03/10/20 06:15 Allopurinol (allopurinoL) 300 mg DAILY ORAL 03/09/20 14:30 04/08/20 14:29 03/12/20 10:17 Budesonide (Pulmicort) 0.25 mg EVERY 12 HOURS HHN 03/06/20 21:00 06/04/20 20:59 03/12/20 09:58 Ceftriaxone Sodium 1 gm/ Sodium Chloride 55 ml @ 110 mls/hr Q24H IVPB 03/08/20 17:00 03/15/20 16:59 03/11/20 17:16 Chlorhexidine Gluconate (Cherry-Hex 2%) 1 applic DAILY@2000 TOPIC 03/10/20 21:45 06/08/20 21:44 03/11/20 20:31 Citalopram Hydrobromide (CeleXA) 20 mg DAILY ORAL 03/10/20 09:00 04/09/20 08:59 03/12/20 10:17 Clonidine HCl (Catapres Tab) 0.1 mg Q4H PRN ORAL SBP>170 03/06/20 16:15 06/04/20 16:14 Dextrose (Dextrose 50%) 25 ml Q30M PRN IV Hypoglycemia 03/06/20 20:00 06/04/20 19:59 Dextrose (Dextrose 50%) 50 ml Q30M PRN IV Hypoglycemia 03/06/20 20:00 06/04/20 19:59 Diphenhydramine HCl (Benadryl) 50 mg Q6H PRN ORAL Itching 03/06/20 19:00 04/05/20 18:59 Docusate Sodium (Colace) 100 mg THREE TIMES A DAY ORAL 03/08/20 13:00 04/07/20 12:59 03/12/20 10:16 Guaifenesin/ Dextromethorphan (Robitussin DM Syrup) 10 ml Q4H PRN ORAL For Cough 03/06/20 19:00 06/04/20 18:59 03/12/20 00:51 Heparin Sodium (Porcine) (Heparin 5000 units/ml) 5,000 units BID SUBQ 03/07/20 09:00 04/21/20 08:59 03/12/20 10:20 Hydralazine HCl (Apresoline) 50 mg Q8HR ORAL 03/11/20 14:00 06/04/20 17:59 03/12/20 05:38 Insulin Aspart (NovoLOG) BEFORE MEALS AND HS SUBQ 03/06/20 21:00 06/04/20 20:59 03/12/20 05:44 Lorazepam (Ativan) 1 mg Q6H PRN ORAL For Anxiety 03/09/20 23:30 03/16/20 23:29 Methylprednisolone Sodium Succinate (Solu-MEDROL) 40 mg EVERY 6 HOURS IVP 03/11/20 12:00 06/09/20 11:59 03/12/20 05:39 Metolazone (Zaroxolyn) 10 mg DAILY ORAL 03/10/20 09:00 04/09/20 08:59 03/12/20 10:17 Morphine Sulfate (Morphine Sulfate) 2 mg Q4H PRN IVP For Pain 03/06/20 18:45 03/13/20 18:44 Pantoprazole (Protonix) 40 mg EVERY 12 HOURS ORAL 03/08/20 21:00 04/07/20 20:59 03/12/20 10:16 Phenol/Menthol (Chloraseptic) 1 spray TIDPRN PRN ORAL For Pain 03/06/20 19:00 06/04/20 18:59 Sevelamer Carbonate (Renvela) 1,600 mg THREE TIMES A DAY ORAL 03/09/20 09:00 06/07/20 08:59 03/12/20 10:17 Tamsulosin HCl (Flomax) 0.4 mg BID ORAL 03/08/20 11:30 04/07/20 11:29 03/12/20 10:16 Vitamin B Complex (Vitamin B Complex) 1 tab DAILY ORAL 03/07/20 09:00 06/05/20 08:59 03/12/20 10:16 Laboratory Tests 03/11/20 12:20: POC Whole Blood Glucose [Pending] 03/11/20 17:07: POC Whole Blood Glucose [Pending] 03/11/20 20:33: POC Whole Blood Glucose 164H 03/12/20 05:37: POC Whole Blood Glucose 270H 03/12/20 05:50: White Blood Count 9.2, Red Blood Count 3.92L, Hemoglobin 10.8L, Hematocrit 35.1L , Mean Corpuscular Volume 90, Mean Corpuscular Hemoglobin 27.6, Mean Corpuscular Hemoglobin Concent 30.8L, Red Cell Distribution Width 14.6, Platelet Count 194, Mean Platelet Volume 8.5, Neutrophils (%) (Auto) , Lymphocytes (%) (Auto) , Monocytes (%) (Auto) , Eosinophils (%) (Auto) , Basophils (%) (Auto) , Sodium Level 135L, Potassium Level 5.1, Chloride Level 99, Carbon Dioxide Level 29, Anion Gap 7, Blood Urea Nitrogen 61H, Creatinine 3.8H, Estimat Glomerular Filtration Rate 19.3, Glucose Level 268#H, Uric Acid 5.8, Calcium Level 8.4L, Phosphorus Level 5.6H, Magnesium Level 2.4, Total Bilirubin 0.3, Aspartate Amino Transf (AST/SGOT) 17, Alanine Aminotransferase (ALT/SGPT) 18, Alkaline Phosphatase 101, C-Reactive Protein, Quantitative 11.3H, Pro-B-Type Natriuretic Peptide 5072H, Total Protein 6.5, Albumin 2.5L, Globulin 4.0, Albumin/Globulin Ratio 0.6L Height (Feet): 5 Height (Inches): 9.00 Weight (Pounds): 228 General Appearance: mild distress Cardiovascular: tachycardia Respiratory/Chest: decreased breath sounds Abdomen: distended Rene Singh MD Mar 12, 2020 11:37
[2020-03-12 12:00] VITALS: BP 139/62
--- NOTE | 2020-03-12 12:16 | Infectious Diseases Prog Note ---
Assessment/Plan Assessment/Plan IMPRESSION: 1. Pneumonia. 2. COPD. 3. Pulmonary edema. 4. CHF. 5. Diabetes mellitus. 6. Hypertension. 7. ESRD 8. Anemia. 9. BPH. 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 Pleural effusion RECOMMENDATION: Continue ceftriaxone. consider thoracentesis if no improvement in SOB Subjective ROS Limited/Unobtainable: Yes Constitutional: Denies: fever Respiratory: Reports: shortness of breath; Denies: dry cough, productive cough Allergies: Coded Allergies: PENICILLINS (Verified Allergy, Unknown, 03/06/20) Uncoded Allergies: SEAFOOD (Allergy, Unknown, 03/06/20) Objective Last 24 Hour Vital Signs Date Time Temp Pulse Resp B/P (MAP) Pulse Ox O2 Delivery O2 Flow Rate FiO2 03/12/20 11:37 92 Venturi Mask 10.0 45 03/12/20 09:58 80 20 94 Non-Rebreather 15.0 100 83 20 93 03/12/20 08:41 100 Non-Rebreather 15.0 100 03/12/20 08:00 86 03/12/20 08:00 97.5 89 24 133/71 (91) 99 03/12/20 05:38 140/71 03/12/20 04:00 87 03/12/20 04:00 96.9 89 24 143/75 (97) 98 03/12/20 00:00 85 03/12/20 00:00 96.6 80 24 140/87 (104) 99 03/11/20 23:35 149/79 03/11/20 21:00 Non-Rebreather 15.0 03/11/20 20:53 87 20 95 Non-Rebreather 15.0 100 85 20 96 03/11/20 20:00 86 03/11/20 20:00 97.7 77 24 129/65 (86) 95 03/11/20 19:21 95 Non-Rebreather 15.0 100 03/11/20 16:00 78 03/11/20 16:00 97.5 75 22 133/72 (92) 95 03/11/20 15:02 156/82 Height (Feet): 5 Height (Inches): 9.00 Weight (Pounds): 228 General Appearance: no acute distress HEENT: mucous membranes moist Respiratory/Chest: lungs clear, other - oxygen by mask Cardiovascular: normal rate, other - R femoral line Abdomen: soft, non tender Extremities: other - decreasing edema Neurologic/Psychiatric: alert, responsive Laboratory Tests Test 03/11/20 12:20 03/11/20 17:07 03/11/20 20:33 03/12/20 05:37 POC Whole Blood Glucose Pending Pending 164 MG/DL (74-106) H 270 MG/DL (74-106) H Test 03/12/20 05:50 White Blood Count 9.2 K/UL (4.8-10.8) Red Blood Count 3.92 M/UL (4.70-6.10) L Hemoglobin 10.8 G/DL (14.2-18.0) L Hematocrit 35.1 % (42.0-52.0) L Mean Corpuscular Volume 90 FL (80-99) Mean Corpuscular Hemoglobin 27.6 PG (27.0-31.0) Mean Corpuscular Hemoglobin Concent 30.8 G/DL (32.0-36.0) L Red Cell Distribution Width 14.6 % (11.6-14.8) Platelet Count 194 K/UL (150-450) Mean Platelet Volume 8.5 FL (6.5-10.1) Neutrophils (%) (Auto) % (45.0-75.0) Lymphocytes (%) (Auto) % (20.0-45.0) Monocytes (%) (Auto) % (1.0-10.0) Eosinophils (%) (Auto) % (0.0-3.0) Basophils (%) (Auto) % (0.0-2.0) Sodium Level 135 MMOL/L (136-145) L Potassium Level 5.1 MMOL/L (3.5-5.1) Chloride Level 99 MMOL/L (98-107) Carbon Dioxide Level 29 MMOL/L (21-32) Anion Gap 7 mmol/L (5-15) Blood Urea Nitrogen 61 mg/dL (7-18) H Creatinine 3.8 MG/DL (0.55-1.30) H Estimat Glomerular Filtration Rate 19.3 mL/min (>60) Glucose Level 268 MG/DL (74-106) #H Uric Acid 5.8 MG/DL (2.6-7.2) Calcium Level 8.4 MG/DL (8.5-10.1) L Phosphorus Level 5.6 MG/DL (2.5-4.9) H Magnesium Level 2.4 MG/DL (1.8-2.4) Total Bilirubin 0.3 MG/DL (0.2-1.0) Aspartate Amino Transf (AST/SGOT) 17 U/L (15-37) Alanine Aminotransferase (ALT/SGPT) 18 U/L (12-78) Alkaline Phosphatase 101 U/L (46-116) C-Reactive Protein, Quantitative 11.3 mg/dL (0.00-0.90) H Pro-B-Type Natriuretic Peptide 5072 pg/mL (0-125) H Total Protein 6.5 G/DL (6.4-8.2) Albumin 2.5 G/DL (3.4-5.0) L Globulin 4.0 g/dL Albumin/Globulin Ratio 0.6 (1.0-2.7) L Current Medications Medications (Trade) Dose Ordered Sig/Melissa Route PRN Reason Start Time Stop Time Status Last Admin Dose Admin Acetaminophen/ Hydrocodone Bitart ([place] 5/325) 1 tab Q4H PRN ORAL Moderate Pain (Pain Scale 4-6) 03/06/20 19:00 03/13/20 18:59 03/10/20 06:15 Allopurinol (allopurinoL) 300 mg DAILY ORAL 03/09/20 14:30 04/08/20 14:29 03/12/20 10:17 Budesonide (Pulmicort) 0.25 mg EVERY 12 HOURS HHN 03/06/20 21:00 06/04/20 20:59 03/12/20 09:58 Ceftriaxone Sodium 1 gm/ Sodium Chloride 55 ml @ 110 mls/hr Q24H IVPB 03/08/20 17:00 03/15/20 16:59 03/11/20 17:16 Chlorhexidine Gluconate (Cherry-Hex 2%) 1 applic DAILY@2000 TOPIC 03/10/20 21:45 06/08/20 21:44 03/11/20 20:31 Citalopram Hydrobromide (CeleXA) 20 mg DAILY ORAL 03/10/20 09:00 04/09/20 08:59 03/12/20 10:17 Clonidine HCl (Catapres Tab) 0.1 mg Q4H PRN ORAL SBP>170 03/06/20 16:15 06/04/20 16:14 Dextrose (Dextrose 50%) 25 ml Q30M PRN IV Hypoglycemia 03/06/20 20:00 06/04/20 19:59 Dextrose (Dextrose 50%) 50 ml Q30M PRN IV Hypoglycemia 03/06/20 20:00 06/04/20 19:59 Diphenhydramine HCl (Benadryl) 50 mg Q6H PRN ORAL Itching 03/06/20 19:00 04/05/20 18:59 Docusate Sodium (Colace) 100 mg THREE TIMES A DAY ORAL 03/08/20 13:00 04/07/20 12:59 03/12/20 10:16 Guaifenesin/ Dextromethorphan (Robitussin DM Syrup) 10 ml Q4H PRN ORAL For Cough 03/06/20 19:00 06/04/20 18:59 03/12/20 00:51 Heparin Sodium (Porcine) (Heparin 5000 units/ml) 5,000 units BID SUBQ 03/07/20 09:00 04/21/20 08:59 03/12/20 10:20 Hydralazine HCl (Apresoline) 50 mg Q8HR ORAL 03/11/20 14:00 06/04/20 17:59 03/12/20 05:38 Insulin Aspart (NovoLOG) BEFORE MEALS AND HS SUBQ 03/06/20 21:00 06/04/20 20:59 03/12/20 05:44 Lorazepam (Ativan) 1 mg Q6H PRN ORAL For Anxiety 03/09/20 23:30 03/16/20 23:29 Methylprednisolone Sodium Succinate (Solu-MEDROL) 40 mg EVERY 6 HOURS IVP 03/11/20 12:00 06/09/20 11:59 03/12/20 05:39 Metolazone (Zaroxolyn) 10 mg DAILY ORAL 03/10/20 09:00 04/09/20 08:59 03/12/20 10:17 Morphine Sulfate (Morphine Sulfate) 2 mg Q4H PRN IVP For Pain 03/06/20 18:45 03/13/20 18:44 Pantoprazole (Protonix) 40 mg EVERY 12 HOURS ORAL 03/08/20 21:00 04/07/20 20:59 03/12/20 10:16 Phenol/Menthol (Chloraseptic) 1 spray TIDPRN PRN ORAL For Pain 03/06/20 19:00 06/04/20 18:59 Sevelamer Carbonate (Renvela) 1,600 mg THREE TIMES A DAY ORAL 03/09/20 09:00 06/07/20 08:59 03/12/20 10:17 Tamsulosin HCl (Flomax) 0.4 mg BID ORAL 03/08/20 11:30 04/07/20 11:29 03/12/20 10:16 Vitamin B Complex (Vitamin B Complex) 1 tab DAILY ORAL 03/07/20 09:00 06/05/20 08:59 03/12/20 10:16 Brett Pleitez MD Mar 12, 2020 12:16
--- NOTE | 2020-03-12 12:49 | Cardiac Electrophysiology PN ---
Assessment/Plan Assessment/Plan 1. Severe bilateral lower extremity edema with shortness of breath and BNP of almost 4000. EF 60%. Due to CHF due to diastolic dysfunction renal failure as well as COPD. Now on HD and Zaroxyline 2. Hypertension. On HD, Zaroxyline 10 daily, hydralazine 50 mg tid and p.r.n. clonidine. 3. Renal failure, creatinine was 3.9 that increased to >4 with BUN 80. VIRGINIE Singh. Started on HD 4. COPD. VIRGINIE RN Subjective Subjective No CP. Still SOB depite HD. ECG SR with RBBB, LAFB Got RFV Janusz and had HD 4 liters on 03/09 and 3 liters on 03/10 Noncompliant on NRB FM. Thoracentesis pending Objective Last 24 Hour Vital Signs Date Time Temp Pulse Resp B/P (MAP) Pulse Ox O2 Delivery O2 Flow Rate FiO2 03/12/20 11:37 92 Venturi Mask 10.0 45 03/12/20 09:58 80 20 94 Non-Rebreather 15.0 100 83 20 93 03/12/20 08:41 100 Non-Rebreather 15.0 100 03/12/20 08:00 86 03/12/20 08:00 97.5 89 24 133/71 (91) 99 03/12/20 05:38 140/71 03/12/20 04:00 87 03/12/20 04:00 96.9 89 24 143/75 (97) 98 03/12/20 00:00 85 03/12/20 00:00 96.6 80 24 140/87 (104) 99 03/11/20 23:35 149/79 03/11/20 21:00 Non-Rebreather 15.0 03/11/20 20:53 87 20 95 Non-Rebreather 15.0 100 85 20 96 03/11/20 20:00 86 03/11/20 20:00 97.7 77 24 129/65 (86) 95 03/11/20 19:21 95 Non-Rebreather 15.0 100 03/11/20 16:00 78 03/11/20 16:00 97.5 75 22 133/72 (92) 95 03/11/20 15:02 156/82 Intake and Output 11/5/20 11/6/20 19:00 07:00 Intake Total 360 ml 480 ml Balance 360 ml 480 ml Intake Oral 360 ml 480 ml # Voids 3 Laboratory Tests Test 03/11/20 17:07 03/11/20 20:33 03/12/20 05:37 03/12/20 05:50 POC Whole Blood Glucose Pending 164 MG/DL (74-106) H 270 MG/DL (74-106) H White Blood Count 9.2 K/UL (4.8-10.8) Red Blood Count 3.92 M/UL (4.70-6.10) L Hemoglobin 10.8 G/DL (14.2-18.0) L Hematocrit 35.1 % (42.0-52.0) L Mean Corpuscular Volume 90 FL (80-99) Mean Corpuscular Hemoglobin 27.6 PG (27.0-31.0) Mean Corpuscular Hemoglobin Concent 30.8 G/DL (32.0-36.0) L Red Cell Distribution Width 14.6 % (11.6-14.8) Platelet Count 194 K/UL (150-450) Mean Platelet Volume 8.5 FL (6.5-10.1) Neutrophils (%) (Auto) % (45.0-75.0) Lymphocytes (%) (Auto) % (20.0-45.0) Monocytes (%) (Auto) % (1.0-10.0) Eosinophils (%) (Auto) % (0.0-3.0) Basophils (%) (Auto) % (0.0-2.0) Sodium Level 135 MMOL/L (136-145) L Potassium Level 5.1 MMOL/L (3.5-5.1) Chloride Level 99 MMOL/L (98-107) Carbon Dioxide Level 29 MMOL/L (21-32) Anion Gap 7 mmol/L (5-15) Blood Urea Nitrogen 61 mg/dL (7-18) H Creatinine 3.8 MG/DL (0.55-1.30) H Estimat Glomerular Filtration Rate 19.3 mL/min (>60) Glucose Level 268 MG/DL (74-106) #H Uric Acid 5.8 MG/DL (2.6-7.2) Calcium Level 8.4 MG/DL (8.5-10.1) L Phosphorus Level 5.6 MG/DL (2.5-4.9) H Magnesium Level 2.4 MG/DL (1.8-2.4) Total Bilirubin 0.3 MG/DL (0.2-1.0) Aspartate Amino Transf (AST/SGOT) 17 U/L (15-37) Alanine Aminotransferase (ALT/SGPT) 18 U/L (12-78) Alkaline Phosphatase 101 U/L (46-116) C-Reactive Protein, Quantitative 11.3 mg/dL (0.00-0.90) H Pro-B-Type Natriuretic Peptide 5072 pg/mL (0-125) H Total Protein 6.5 G/DL (6.4-8.2) Albumin 2.5 G/DL (3.4-5.0) L Globulin 4.0 g/dL Albumin/Globulin Ratio 0.6 (1.0-2.7) L Hepatitis B Surface Antigen Pending Hepatitis B Surface Antibody, Quant Pending Hepatitis C Antibody Pending Objective HEAD AND NECK: Positive JVD. LUNGS: Decreased breath sounds. CARDIOVASCULAR: Regular S1 and S2 with no gallop. ABDOMEN: Soft. EXTREMITIES: 2+ pitting edema in lower extremities as well as 2+ pitting edema in right arm. RFV Ponce Wesley MD Mar 12, 2020 12:49
--- NOTE | 2020-03-12 13:09 | Psychiatric Progress Note ---
Psychiatry Progress Note Psychiatry Progress Note Medications Current Medications Medications (Trade) Dose Ordered Sig/Melissa Route PRN Reason Start Time Stop Time Status Last Admin Dose Admin Acetaminophen/ Hydrocodone Bitart ([place] 5/325) 1 tab Q4H PRN ORAL Moderate Pain (Pain Scale 4-6) 03/06/20 19:00 03/13/20 18:59 03/10/20 06:15 Allopurinol (allopurinoL) 300 mg DAILY ORAL 03/09/20 14:30 04/08/20 14:29 03/12/20 10:17 Budesonide (Pulmicort) 0.25 mg EVERY 12 HOURS HHN 03/06/20 21:00 06/04/20 20:59 03/12/20 09:58 Ceftriaxone Sodium 1 gm/ Sodium Chloride 55 ml @ 110 mls/hr Q24H IVPB 03/08/20 17:00 03/15/20 16:59 03/11/20 17:16 Chlorhexidine Gluconate (Cherry-Hex 2%) 1 applic DAILY@2000 TOPIC 03/10/20 21:45 06/08/20 21:44 03/11/20 20:31 Citalopram Hydrobromide (CeleXA) 20 mg DAILY ORAL 03/10/20 09:00 04/09/20 08:59 03/12/20 10:17 Clonidine HCl (Catapres Tab) 0.1 mg Q4H PRN ORAL SBP>170 03/06/20 16:15 06/04/20 16:14 Dextrose (Dextrose 50%) 25 ml Q30M PRN IV Hypoglycemia 03/06/20 20:00 06/04/20 19:59 Dextrose (Dextrose 50%) 50 ml Q30M PRN IV Hypoglycemia 03/06/20 20:00 06/04/20 19:59 Diphenhydramine HCl (Benadryl) 50 mg Q6H PRN ORAL Itching 03/06/20 19:00 04/05/20 18:59 Docusate Sodium (Colace) 100 mg THREE TIMES A DAY ORAL 03/08/20 13:00 04/07/20 12:59 03/12/20 10:16 Guaifenesin/ Dextromethorphan (Robitussin DM Syrup) 10 ml Q4H PRN ORAL For Cough 03/06/20 19:00 06/04/20 18:59 03/12/20 00:51 Heparin Sodium (Porcine) (Heparin 5000 units/ml) 5,000 units BID SUBQ 03/07/20 09:00 04/21/20 08:59 03/12/20 10:20 Hydralazine HCl (Apresoline) 50 mg Q8HR ORAL 03/11/20 14:00 06/04/20 17:59 03/12/20 05:38 Insulin Aspart (NovoLOG) BEFORE MEALS AND HS SUBQ 03/06/20 21:00 06/04/20 20:59 03/12/20 05:44 Lorazepam (Ativan) 1 mg Q6H PRN ORAL For Anxiety 03/09/20 23:30 03/16/20 23:29 Methylprednisolone Sodium Succinate (Solu-MEDROL) 40 mg EVERY 6 HOURS IVP 03/11/20 12:00 06/09/20 11:59 03/12/20 05:39 Metolazone (Zaroxolyn) 10 mg DAILY ORAL 03/10/20 09:00 04/09/20 08:59 03/12/20 10:17 Morphine Sulfate (Morphine Sulfate) 2 mg Q4H PRN IVP For Pain 03/06/20 18:45 03/13/20 18:44 Pantoprazole (Protonix) 40 mg EVERY 12 HOURS ORAL 03/08/20 21:00 04/07/20 20:59 03/12/20 10:16 Phenol/Menthol (Chloraseptic) 1 spray TIDPRN PRN ORAL For Pain 03/06/20 19:00 06/04/20 18:59 Sevelamer Carbonate (Renvela) 1,600 mg THREE TIMES A DAY ORAL 03/09/20 09:00 06/07/20 08:59 03/12/20 10:17 Tamsulosin HCl (Flomax) 0.4 mg BID ORAL 03/08/20 11:30 04/07/20 11:29 03/12/20 10:16 Vitamin B Complex (Vitamin B Complex) 1 tab DAILY ORAL 03/07/20 09:00 06/05/20 08:59 03/12/20 10:16 Neurological/Psychiatric: Reports: anxiety, depressed, emotional problems Allergies: Coded Allergies: PENICILLINS (Verified Allergy, Unknown, 03/06/20) Uncoded Allergies: SEAFOOD (Allergy, Unknown, 03/06/20) Objective Data Height (Feet): 5 Height (Inches): 9.00 Weight (Pounds): 228 General Appearance: mild distress Additional Comments: alert and oriented times self, place, and situation. Mood is anxious. Affect is blunted, congruent with mood. Thought process is linear and goal oriented. Thought content, no suicidal or homicidal ideation. Cognition is intact. Insight and judgment is fair. Assessment/Plan [place] I: ASSESSMENT: [place] I Anxiety disorder. [place] II Deferred. [place] III As above. [place] IV Low. [place] V 50. PLAN: 1. We will start the patient on Celexa 20 mg in the morning. 2. Ativan as needed. 3. Provide the patient with reality orientation, supportive therapy, and medication. Status: progressing, deteriorating Status Narrative ASSESSMENT: [place] I Anxiety disorder. [place] II Deferred. [place] III As above. Tang[place] IV Low. [place] V 50. PLAN: 1. We will start the patient on Celexa 20 mg in the morning. 2. Ativan as needed. 3. Provide the patient with reality orientation, supportive therapy, and medication. Assessment/Plan: ASSESSMENT: [place] I Anxiety disorder. [place] II Deferred. [place] III As above. Tang[place] IV Low. [place] V 50. PLAN: 1. We will start the patient on Celexa 20 mg in the morning. 2. Ativan as needed. 3. Provide the patient with reality orientation, supportive therapy, and medication. Kwasi Diaz MD Mar 12, 2020 13:09
--- NOTE | 2020-03-12 15:20 | NUR ---
CASE MANAGEMENT:REVIEW 03/12/20 SI: PNA. COPD. ACUTE RENAL FAILURE 97.5 89 24 133/71 92% ON VENTURI MASK 10L/45% FIO2 BUN+61 CR+3.8 IS: IV SOLUMEDROL Q6HRS IV ROCEPHIN Q24 HYDRALAZINE PO Q8HRS CELEXA PO QD ZAROXOLYN PO QD ALLOPURINOL PO QD RENVELA PO TID PROTONIX PO Q12 FLOMAX PO BID HEPARIN SQ BID PULMICORT HHN Q12 : TELEMETRY STATUS DCP: FROM [facility]: FAILED DIURETIC TREATMENT STARTED DIALYSIS ~ NON TUNNELED DIALYSI CATHETER US GUIDED THORACENTESIS
[2020-03-12 16:00] VITALS: BP 130/61
--- NOTE | 2020-03-12 17:14 | Pre-Procedure Note/Attestation ---
Pre-Procedure Note/Attestation Complete Prior to Procedure Planned Procedure: right Procedure Narrative: thoracentesis Indications for Procedure Pre-Operative Diagnosis: pleural effusion Attestation I attest that I discussed the nature of the procedure; its benefits; risks and complications; and alternatives (and the risks and benefits of such alternatives), prior to the procedure, with the patient (or the patient's legal registered representative). I attest that, if there was a reasonable possibility of needing a blood tra nsfusion, the patient (or the patient's legal registered representative) was given the [facility] standardized written summary, pursuant to the [place] Blood Safety Act ([place] Health and Safety Code # 1645, as amended). I attest that I re-evaluated the patient just prior to the surgery and that there has been no change in the patient's H&P, except as documented below: Phillip Martinez MD Mar 12, 2020 17:14
--- NOTE | 2020-03-12 17:14 | Brief Operative Note ---
Immediate Post Operative Note Operative Note Pre-op Diagnosis: pleural effusion Procedure: thoracentesis Post-op Diagnosis: same as pre-op Surgeon: Wolf Ellis Anesthesia: local Specimen: none Complications: none Fluids: none Implant(s) used?: No Phillip Ellis MD Mar 12, 2020 17:14
--- NOTE | 2020-03-12 17:26 | Diagnostic Imaging Report ---
Indications: Pleural effusion Technique: Ultrasound used to localize optimal puncture site. Sterile prepping and draping right chest. Local anesthesia with 1% lidocaine. Under real-time ultrasound guidance, puncture pleural space using thoracentesis needle. Stylet removed. Catheter placed to vacuum bottle suction. Total 150 milliliters of fluid aspirated. Fluid stopped flowing after that. Patient tolerated procedure well, without immediate complication. Specimen was sent to lab for analysis Findings: Followup sonography demonstrates residual pleural fluid Impression: Successful ultrasound-guided thoracentesis, yielding 150 milliliters of fluid
--- NOTE | 2020-03-12 17:29 | NUR ---
NURSE NOTES: notified doctor Morris about ABG's result, no new orders given. doctor asked to put orders for cult. fluids from thoracentesis.
--- NOTE | 2020-03-12 17:31 | Diagnostic Imaging Report ---
Indication: Status post thoracentesis Technique: One view of the chest Comparison: On 09/24/2019 Findings: Slightly decreased right pleural effusion, status post thoracentesis. No pneumothorax demonstrated. There is persistent pleural fluid, however, and persistent marked elevation of the right hemidiaphragm. Bilateral interstitial and airspace edema persists. The heart remains borderline enlarged. Impression: Slightly improved right pleural effusion, status post thoracentesis. No radiographically evident complication Other stable findings as described
[2020-03-12] MEDS: cefTRIAXone 1 GM in NS 55 ML IVPB SCH (17:57)
--- NOTE | 2020-03-12 19:30 | NUR ---
NURSE NOTES: Patient received from BELKIS Martinez. Patient is awake, alert and oriented x 4. Patient found in bed leaning on the side rails. Patient has no complaints as of the moment. Patient has non rebreather mask with no signs of respiratory distress. Patient has a central line catheter on his right femoral, patent and flushed. Bed is in the lowest position and locked, call light within reach. Will continue to monitor.
[2020-03-12 20:00] VITALS: BP 127/67
--- NOTE | 2020-03-12 20:04 | General Progress Note ---
Subjective ROS Limited/Unobtainable: Yes Allergies: Coded Allergies: PENICILLINS (Verified Allergy, Unknown, 03/06/20) Uncoded Allergies: SEAFOOD (Allergy, Unknown, 03/06/20) Objective Last 24 Hour Vital Signs Date Time Temp Pulse Resp B/P (MAP) Pulse Ox O2 Delivery O2 Flow Rate FiO2 03/12/20 16:00 91 03/12/20 16:00 97.7 84 22 130/61 (84) 99 03/12/20 15:57 130/61 03/12/20 12:00 97.5 88 24 139/62 (87) 92 03/12/20 12:00 87 03/12/20 11:37 92 Venturi Mask 10.0 45 03/12/20 09:58 80 20 94 Non-Rebreather 15.0 100 83 20 93 03/12/20 09:00 Non-Rebreather 15.0 03/12/20 08:41 100 Non-Rebreather 15.0 100 03/12/20 08:00 86 03/12/20 08:00 97.5 89 24 133/71 (91) 99 03/12/20 05:38 140/71 03/12/20 04:00 87 03/12/20 04:00 96.9 89 24 143/75 (97) 98 03/12/20 00:00 85 03/12/20 00:00 96.6 80 24 140/87 (104) 99 03/11/20 23:35 149/79 03/11/20 21:00 Non-Rebreather 15.0 03/11/20 20:53 87 20 95 Non-Rebreather 15.0 100 85 20 96 Intake and Output 03/11/20 03/12/20 19:00 07:00 Intake Total 360 ml 480 ml Balance 360 ml 480 ml Intake Oral 360 ml 480 ml # Voids 3 Laboratory Tests 03/11/20 20:33: POC Whole Blood Glucose 164H 03/12/20 05:37: POC Whole Blood Glucose 270H 03/12/20 05:50: White Blood Count 9.2, Red Blood Count 3.92L, Hemoglobin 10.8L, Hematocrit 35.1L , Mean Corpuscular Volume 90, Mean Corpuscular Hemoglobin 27.6, Mean Corpuscular Hemoglobin Concent 30.8L, Red Cell Distribution Width 14.6, Platelet Count 194, Mean Platelet Volume 8.5, Neutrophils (%) (Auto) , Lymphocytes (%) (Auto) , Monocytes (%) (Auto) , Eosinophils (%) (Auto) , Basophils (%) (Auto) , Sodium Level 135L, Potassium Level 5.1, Chloride Level 99, Carbon Dioxide Level 29, Anion Gap 7, Blood Urea Nitrogen 61H, Creatinine 3.8H, Estimat Glomerular Filtration Rate 19.3, Glucose Level 268#H, Uric Acid 5.8, Calcium Level 8.4L, Phosphorus Level 5.6H, Magnesium Level 2.4, Total Bilirubin 0.3, Aspartate Amino Transf (AST/SGOT) 17, Alanine Aminotransferase (ALT/SGPT) 18, Alkaline Phosphatase 101, C-Reactive Protein, Quantitative 11.3H, Pro-B-Type Natriuretic Peptide 5072H, Total Protein 6.5, Albumin 2.5L, Globulin 4.0, Albumin/Globulin Ratio 0.6L, Hepatitis B Surface Antigen [Pending], Hepatitis B Surface Antibody, Quant [Pending], Hepatitis C Antibody [Pending] 03/12/20 13:15: POC Whole Blood Glucose 150H 03/12/20 15:52: Body Fluid Source [Pending], Body Fluid Volume [Pending], Body Fluid Appearance [Pending], Body Fluid RBC [Pending], Body Fluid Total Nucleated Cells [Pending], Body Fluid Glucose [Pending], Body Fluid Total Protein [Pending], Body Fluid Lactate Dehydrogenase [Pending], Body Fluid Comment [Pending] 03/12/20 16:30: Arterial Blood pH 7.358, Arterial Blood Partial Pressure CO2 56.4*H, Arterial Blood Partial Pressure O2 63.1L, Arterial Blood HCO3 31.0H, Arterial Blood Oxygen Saturation 90.2L, Arterial Blood Base Excess 4.4H, Oscar Test Positive 03/12/20 18:07: POC Whole Blood Glucose 388H Height (Feet): 5 Height (Inches): 9.00 Weight (Pounds): 228 Assessment/Plan Problem List: (1) COPD (chronic obstructive pulmonary disease) ICD Codes: J44.9 - Chronic obstructive pulmonary disease, unspecified SNOMED: 64666199 Qualifiers: Qualified Codes: J44.1 - Chronic obstructive pulmonary disease with (acute) exacerbation (2) CHF (congestive heart failure) ICD Codes: I50.9 - Heart failure, unspecified SNOMED: 80326629 Qualifiers: Qualified Codes: I50.9 - Heart failure, unspecified (3) Hypoxia ICD Codes: R09.02 - Hypoxemia SNOMED: 516054183 (4) Renal failure (ARF), acute on chronic ICD Codes: N17.9 - Acute kidney failure, unspecified; N18.9 - Chronic kidney disease, unspecified SNOMED: 896569542 Qualifiers: Qualified Codes: N17.9 - Acute kidney failure, unspecified; N18.4 - Chronic kidney disease, stage 4 (severe) Status: progressing, deteriorating Assessment/Plan: arf diaylsis per renal no acute events no wheezing chf prn oxygen John Chavez MD Mar 12, 2020 20:04
[2020-03-12] MEDS: Dyna-Hex 2% Top Sol 2oz TOPIC SCH (20:29)
--- NOTE | 2020-03-12 23:31 | Psychiatric Progress Note ---
Psychiatry Progress Note Psychiatry Progress Note Subjective explain to pt what thoracentesis is and he was able to understand and process. he signed the consent. Medications Current Medications Medications (Trade) Dose Ordered Sig/Melissa Route PRN Reason Start Time Stop Time Status Last Admin Dose Admin Acetaminophen/ Hydrocodone Bitart ([place] 5/325) 1 tab Q4H PRN ORAL Moderate Pain (Pain Scale 4-6) 03/06/20 19:00 03/13/20 18:59 03/10/20 06:15 Allopurinol (allopurinoL) 300 mg DAILY ORAL 03/09/20 14:30 04/08/20 14:29 03/12/20 10:17 Budesonide (Pulmicort) 0.25 mg EVERY 12 HOURS HHN 03/06/20 21:00 06/04/20 20:59 03/12/20 20:51 Ceftriaxone Sodium 1 gm/ Sodium Chloride 55 ml @ 110 mls/hr Q24H IVPB 03/08/20 17:00 03/15/20 16:59 03/12/20 17:57 Chlorhexidine Gluconate (Cherry-Hex 2%) 1 applic DAILY@2000 TOPIC 03/10/20 21:45 06/08/20 21:44 03/12/20 20:29 Citalopram Hydrobromide (CeleXA) 20 mg DAILY ORAL 03/10/20 09:00 04/09/20 08:59 03/12/20 10:17 Clonidine HCl (Catapres Tab) 0.1 mg Q4H PRN ORAL SBP>170 03/06/20 16:15 06/04/20 16:14 Dextrose (Dextrose 50%) 25 ml Q30M PRN IV Hypoglycemia 03/06/20 20:00 06/04/20 19:59 Dextrose (Dextrose 50%) 50 ml Q30M PRN IV Hypoglycemia 03/06/20 20:00 06/04/20 19:59 Diphenhydramine HCl (Benadryl) 50 mg Q6H PRN ORAL Itching 03/06/20 19:00 04/05/20 18:59 Docusate Sodium (Colace) 100 mg THREE TIMES A DAY ORAL 03/08/20 13:00 04/07/20 12:59 03/12/20 15:56 Guaifenesin/ Dextromethorphan (Robitussin DM Syrup) 10 ml Q4H PRN ORAL For Cough 03/06/20 19:00 06/04/20 18:59 03/12/20 00:51 Heparin Sodium (Porcine) (Heparin 5000 units/ml) 5,000 units BID SUBQ 03/07/20 09:00 04/21/20 08:59 03/12/20 10:20 Hydralazine HCl (Apresoline) 50 mg Q8HR ORAL 03/11/20 14:00 06/04/20 17:59 03/12/20 22:04 Insulin Aspart (NovoLOG) BEFORE MEALS AND HS SUBQ 03/06/20 21:00 06/04/20 20:59 03/12/20 22:06 Lorazepam (Ativan) 1 mg Q6H PRN ORAL For Anxiety 03/09/20 23:30 03/16/20 23:29 Methylprednisolone Sodium Succinate (Solu-MEDROL) 40 mg EVERY 6 HOURS IVP 03/11/20 12:00 06/09/20 11:59 03/12/20 15:56 Metolazone (Zaroxolyn) 10 mg DAILY ORAL 03/10/20 09:00 04/09/20 08:59 03/12/20 10:17 Morphine Sulfate (Morphine Sulfate) 2 mg Q4H PRN IVP For Pain 03/06/20 18:45 03/13/20 18:44 Pantoprazole (Protonix) 40 mg EVERY 12 HOURS ORAL 03/08/20 21:00 04/07/20 20:59 03/12/20 20:29 Phenol/Menthol (Chloraseptic) 1 spray TIDPRN PRN ORAL For Pain 03/06/20 19:00 06/04/20 18:59 Sevelamer Carbonate (Renvela) 1,600 mg THREE TIMES A DAY ORAL 03/09/20 09:00 06/07/20 08:59 03/12/20 15:56 Tamsulosin HCl (Flomax) 0.4 mg BID ORAL 03/08/20 11:30 04/07/20 11:29 03/12/20 17:57 Vitamin B Complex (Vitamin B Complex) 1 tab DAILY ORAL 03/07/20 09:00 06/05/20 08:59 03/12/20 10:16 Neurological/Psychiatric: Reports: anxiety, depressed, emotional problems Allergies: Coded Allergies: PENICILLINS (Verified Allergy, Unknown, 03/06/20) Uncoded Allergies: SEAFOOD (Allergy, Unknown, 03/06/20) Objective Data Height (Feet): 5 Height (Inches): 9.00 Weight (Pounds): 228 General Appearance: mild distress Additional Comments: alert and oriented times self, place, and situation. Mood is anxious. Affect is blunted, congruent with mood. Thought process is linear and goal oriented. Thought content, no suicidal or homicidal ideation. Cognition is intact. Insight and judgment is fair. Assessment/Plan [place] I: ASSESSMENT: [place] I Anxiety disorder. [place] II Deferred. [place] III As above. [place] IV Low. [place] V 50. PLAN: 1. We will start the patient on Celexa 20 mg in the morning. 2. Ativan as needed. 3. Provide the patient with reality orientation, supportive therapy, and medication. Status: progressing, deteriorating Status Narrative ASSESSMENT: [place] I Anxiety disorder. [place] II Deferred. [place] III As above. [place] IV Low. [place] V 50. PLAN: 1. We will start the patient on Celexa 20 mg in the morning. 2. Ativan as needed. 3. Provide the patient with reality orientation, supportive therapy, and medication. Assessment/Plan: ASSESSMENT: [place] I Anxiety disorder. [place] II Deferred. [place] III As above. [place] IV Low. [place] V 50. PLAN: 1. We will start the patient on Celexa 20 mg in the morning. 2. Ativan as needed. 3. Provide the patient with reality orientation, supportive therapy, and medication. 4. the pt has capacity to make decisions Kwasi Diaz MD Mar 12, 2020 23:31
[2020-03-13] VITALS: BP 138/68
[2020-03-13] MEDS: Solu-MEDROL 40mg Inj IVP SCH ×4 (00:56→17:23)
[2020-03-13 04:00] VITALS: BP 132/72
[2020-03-13] MEDS: HydrALAZINE 50mg tab ORAL SCH ×3 (06:56→22:00)
[2020-03-13] MEDS: NovoLOG Insulin Flexpen SUBQ SCH ×4 (07:05→20:41)
[2020-03-13 07:35] LABS: HEMATOCRIT 35.7 % (42.0-52.0); HEMOGLOBIN 10.9 G/DL (14.2-18.0); MEAN CORPUSCULAR VOLUME 90 FL (80-99); PLATELET COUNT 231 K/UL (150-450); RED BLOOD COUNT 3.98 M/UL (4.70-6.10); RED CELL DISTRIBUTION WIDTH 14.6 % (11.6-14.8); WHITE BLOOD COUNT 11.9 K/UL (4.8-10.8)
--- NOTE | 2020-03-13 07:47 | NUR ---
NURSE HAND-OFF REPORT: Important Events on Shift:[Patient noncompliant with wearing non-rebreather mask. Patient has 4 beats of PVCs. Notified Dr. Serna] Patient Status: [Stable] Diet: [Renal] Pending Orders: [] Pending Results/Labs:[] Pending MD notification:[] Latest Vital Signs: Temperature 97.5 , Pulse 88 , B/P 132 /72 , Respiratory Rate 26 , O2 SAT 95 , Non-Rebreather, O2 Flow Rate 15.0 . Vital Sign Comment: [] EKG Rhythm: Sinus Rhythm w/BBB Rhythm change?: N MD Notified?: N - MD Response: Latest Ryan Fall Score: 60 Fall Risk: High Risk Safety Measures: Call light Within Reach, Bed Alarm Zone 1, Side Rails Side Rails x2, Bed position Low and Locked. Fall Precautions: Yellow Socks Yellow Gown Patient Fall Education Report given to [BELKIS Miller].
--- NOTE | 2020-03-13 07:50 | NUR ---
NURSE NOTES: Received report from Diane/RN. Pt is awake, having breakfast in bed. On 15L non-rebreather mask, no distress or SOB noted. Januzs catheter in right femoral, patent and clean. Bed in the lowest position and locked. Call light within reach, encouraged to use it when need it. Side rails up X3. Will continue plan of care.
[2020-03-13 08:00] VITALS: BP 128/54
[2020-03-13 08:24] LABS: ALBUMIN 2.6 G/DL (3.4-5.0); ALBUMIN/GLOBULIN RATIO 0.7 (1.0-2.7); BILIRUBIN,TOTAL 0.2 MG/DL (0.2-1.0); CALCIUM 8.3 MG/DL (8.5-10.1); CREATININE 3.8 MG/DL (0.55-1.30); PHOSPHORUS 4.7 MG/DL (2.5-4.9); POTASSIUM 4.4 MMOL/L (3.5-5.1)
[2020-03-13] MEDS: Docusate 100mg cap ORAL SCH ×3 (09:26→17:22)
[2020-03-13] MEDS: Citalopram Hydrobromide 10mg Tab ORAL SCH (09:27)
[2020-03-13] MEDS: Tamsulosin 0.4mg cap ORAL SCH ×2 (09:27→17:22)
[2020-03-13] MEDS: Vitamin B Complex Tab ORAL SCH (09:27)
[2020-03-13] MEDS: Heparin 5000 units/ml inj SUBQ SCH ×2 (09:28→17:23)
--- NOTE | 2020-03-13 09:40 | Pulmonology Progress Note ---
Subjective ROS Limited/Unobtainable: Yes Interval Events: Feeling better; On ventimask vs RA Constitutional: Denies: fever HEENT: Repors: no symptoms Respiratory: Reports: no symptoms Cardiovascular: Reports: no symptoms Gastrointestinal/Abdominal: Reports: no symptoms Genitourinary: Reports: no symptoms Allergies: Coded Allergies: PENICILLINS (Verified Allergy, Unknown, 03/06/20) Uncoded Allergies: SEAFOOD (Allergy, Unknown, 03/06/20) Objective Last 24 Hour Vital Signs Date Time Temp Pulse Resp B/P (MAP) Pulse Ox O2 Delivery O2 Flow Rate FiO2 03/13/20 08:00 97.8 90 22 128/54 (78) 93 03/13/20 06:56 132/72 03/13/20 04:00 88 03/13/20 04:00 97.5 85 26 132/72 (92) 95 03/13/20 00:00 97.9 80 26 138/68 (91) 100 03/13/20 00:00 85 03/12/20 22:04 127/67 03/12/20 21:00 Non-Rebreather 15.0 03/12/20 20:51 79 18 95 Venturi Mask 14.0 55 77 18 93 03/12/20 20:00 88 03/12/20 20:00 97.5 80 28 127/67 (87) 99 03/12/20 19:00 93 Venturi Mask 10.0 45 03/12/20 16:00 91 03/12/20 16:00 97.7 84 22 130/61 (84) 99 03/12/20 15:57 130/61 03/12/20 12:00 97.5 88 24 139/62 (87) 92 03/12/20 12:00 87 03/12/20 11:37 92 Venturi Mask 10.0 45 03/12/20 09:58 80 20 94 Non-Rebreather 15.0 100 83 20 93 Intake and Output 03/12/20 03/13/20 19:00 07:00 Intake Total 600 ml Output Total 3000 ml Balance -2400 ml Intake Oral 600 ml Hemodialysis UF 3000 ml # Voids 2 # Bowel Movements 1 General Appearance: no acute distress HEENT: normocephalic Respiratory: chest wall non-tender, decreased breath sounds Cardiovascular: normal peripheral pulses, normal rate Abdomen: normal bowel sounds Laboratory Tests 03/12/20 13:15: POC Whole Blood Glucose 150H 03/12/20 15:32: Body Fluid Source Thoracentesis, Body Fluid Volume 27, Body Fluid Appearance Hazy, Body Fluid RBC 737, Body Fluid Total Nucleated Cells 21, Body Fluid Polynuclear WBCs (%) 6, Body Fluid Mononuclear WBCs (%) 89, Body Fluid Mesothelial Cells (%) 5, Body Fluid Comment 03/12/20 15:52: Body Fluid Glucose [Pending], Body Fluid Total Protein [Pending], Body Fluid Lactate Dehydrogenase [Pending] 03/12/20 16:30: Arterial Blood pH 7.358, Arterial Blood Partial Pressure CO2 56.4*H, Arterial Blood Partial Pressure O2 63.1L, Arterial Blood HCO3 31.0H, Arterial Blood Oxygen Saturation 90.2L, Arterial Blood Base Excess 4.4H, Oscar Test Positive 03/12/20 18:07: POC Whole Blood Glucose 388H 03/12/20 20:35: POC Whole Blood Glucose 223H 03/13/20 06:15: White Blood Count 11.9H, Red Blood Count 3.98L, Hemoglobin 10.9L, Hematocrit 35.7L, Mean Corpuscular Volume 90, Mean Corpuscular Hemoglobin 27.4, Mean Corpuscular Hemoglobin Concent 30.5L, Red Cell Distribution Width 14.6, Platelet Count 231, Mean Platelet Volume 8.4, Neutrophils (%) (Auto) , Lymphocytes (%) (Auto) , Monocytes (%) (Auto) , Eosinophils (%) (Auto) , Basophils (%) (Auto) , Neutrophils % (Manual) [Pending], Lymphocytes % (Manual) [Pending], Platelet Estimate [Pending], Platelet Morphology [Pending], Sodium Level 136, Potassium Level 4.4, Chloride Level 99, Carbon Dioxide Level 30, Anion Gap 7, Blood Urea Nitrogen 58H, Creatinine 3.8H, Estimat Glomerular Filtration Rate 19.3, Glucose Level 341H, Uric Acid 4.9, Calcium Level 8.3L, Phosphorus Level 4.7, Magnesium Level 2.2, Total Bilirubin 0.2, Aspartate Amino Transf (AST/SGOT) 17, Alanine Aminotransferase (ALT/SGPT) 22, Alkaline Phosphatase 100, C-Reactive Protein, Quantitative 6.1H, Pro-B-Type Natriuretic Peptide 4869H, Total Protein 6.4, Albumin 2.6L, Globulin 3.8, Albumin/Globulin Ratio 0.7L 03/13/20 07:03: POC Whole Blood Glucose 317H 03/13/20 07:43: Arterial Blood pH 7.358, Arterial Blood Partial Pressure CO2 51.6H, Arterial Blood Partial Pressure O2 74.8L, Arterial Blood HCO3 28.4H, Arterial Blood Oxygen Saturation 94.5L, Arterial Blood Base Excess 2.2H, Oscar Test Positive Current Medications Medications (Trade) Dose Ordered Sig/Melissa Route PRN Reason Start Time Stop Time Status Last Admin Dose Admin Acetaminophen/ Hydrocodone Bitart ([place] 5/325) 1 tab Q4H PRN ORAL Moderate Pain (Pain Scale 4-6) 03/06/20 19:00 03/13/20 18:59 03/10/20 06:15 Allopurinol (allopurinoL) 300 mg DAILY ORAL 03/09/20 14:30 04/08/20 14:29 03/13/20 09:27 Budesonide (Pulmicort) 0.25 mg EVERY 12 HOURS HHN 03/06/20 21:00 06/04/20 20:59 03/12/20 20:51 Ceftriaxone Sodium 1 gm/ Sodium Chloride 55 ml @ 110 mls/hr Q24H IVPB 03/08/20 17:00 03/15/20 16:59 03/12/20 17:57 Chlorhexidine Gluconate (Cherry-Hex 2%) 1 applic DAILY@2000 TOPIC 03/10/20 21:45 06/08/20 21:44 03/12/20 20:29 Citalopram Hydrobromide (CeleXA) 20 mg DAILY ORAL 03/10/20 09:00 04/09/20 08:59 03/13/20 09:27 Clonidine HCl (Catapres Tab) 0.1 mg Q4H PRN ORAL SBP>170 03/06/20 16:15 06/04/20 16:14 Dextrose (Dextrose 50%) 25 ml Q30M PRN IV Hypoglycemia 03/06/20 20:00 06/04/20 19:59 Dextrose (Dextrose 50%) 50 ml Q30M PRN IV Hypoglycemia 03/06/20 20:00 06/04/20 19:59 Diphenhydramine HCl (Benadryl) 50 mg Q6H PRN ORAL Itching 03/06/20 19:00 04/05/20 18:59 Docusate Sodium (Colace) 100 mg THREE TIMES A DAY ORAL 03/08/20 13:00 04/07/20 12:59 03/13/20 09:26 Guaifenesin/ Dextromethorphan (Robitussin DM Syrup) 10 ml Q4H PRN ORAL For Cough 03/06/20 19:00 06/04/20 18:59 03/12/20 00:51 Heparin Sodium (Porcine) (Heparin 5000 units/ml) 5,000 units BID SUBQ 03/07/20 09:00 04/21/20 08:59 03/13/20 09:28 Hydralazine HCl (Apresoline) 50 mg Q8HR ORAL 03/11/20 14:00 06/04/20 17:59 03/13/20 06:56 Insulin Aspart (NovoLOG) BEFORE MEALS AND HS SUBQ 03/06/20 21:00 06/04/20 20:59 03/13/20 07:05 Lorazepam (Ativan) 1 mg Q6H PRN ORAL For Anxiety 03/09/20 23:30 03/16/20 23:29 Methylprednisolone Sodium Succinate (Solu-MEDROL) 40 mg EVERY 6 HOURS IVP 03/11/20 12:00 06/09/20 11:59 03/13/20 06:55 Metolazone (Zaroxolyn) 10 mg DAILY ORAL 03/10/20 09:00 04/09/20 08:59 03/13/20 09:27 Morphine Sulfate (Morphine Sulfate) 2 mg Q4H PRN IVP For Pain 03/06/20 18:45 03/13/20 18:44 Pantoprazole (Protonix) 40 mg EVERY 12 HOURS ORAL 03/08/20 21:00 04/07/20 20:59 03/13/20 09:27 Phenol/Menthol (Chloraseptic) 1 spray TIDPRN PRN ORAL For Pain 03/06/20 19:00 06/04/20 18:59 Sevelamer Carbonate (Renvela) 1,600 mg THREE TIMES A DAY ORAL 03/09/20 09:00 06/07/20 08:59 03/13/20 09:27 Tamsulosin HCl (Flomax) 0.4 mg BID ORAL 03/08/20 11:30 04/07/20 11:29 03/13/20 09:27 Vitamin B Complex (Vitamin B Complex) 1 tab DAILY ORAL 03/07/20 09:00 06/05/20 08:59 03/13/20 09:27 Assessment/Plan Assessment/Plan IMPRESSION: 1. Pulmonary infiltrates bilaterally, suspect pulmonary edema. Has persistent opacity R base; S/p 150 ml thoracentesis 2. Hypertension. 3. Diabetes mellitus. 4. Renal failure. 5. COPD. 6. Negative COVID 19 rapid test DISCUSSION: Continue breathing treatments with albuterol and Atrovent Negative COVID 19 Broad-spectrum antibiotics will be given. I will follow carefully. HD to continue Oxygenation improved Saturating 88% on RA Will place on 2-4L/O2via nasal canulae Jie Rivera Omar Syed MD Mar 13, 2020 09:40
[2020-03-13] MEDS: Budesonide HHN 0.25mg/2ml ud HHN SCH ×2 (10:51→21:24)
--- NOTE | 2020-03-13 11:56 | Nephrology Progress Note ---
Assessment/Plan Problem List: (1) Renal failure (ARF), acute on chronic (2) Hypoxia (3) CHF (congestive heart failure) (4) COPD (chronic obstructive pulmonary disease) (5) HTN (hypertension) (6) Hyperkalemia Assessment Acute renal failure Possible underlying chronic kidney disease Hyperkalemia Respiratory failure: Combination of diastolic CHF, COPD, possible pneumonia Hypertension Diabetes mellitus Negative COVID-19 rapid test Plan March 13: Dialyzed yesterday. Serum creatinine 3.8 unchanged. Continue per pulmonary. Hemodialysis as needed. Continue to monitor renal parameters. March 12: Due for dialysis today. Discussed with pulmonary, patient due for right pleural effusion tap today. Labs reviewed. Continue per current management. Continue to monitor renal parameters. March 11: Patient was dialyzed 2 days in a row with total of 7 L fluid removal. Today's ABG still suggestive of hypoxia. Patient uncooperative and does not keep the oxygen mask on. Labs reviewed. Renal parameters reasonable. Will attempt dialysis again tomorrow. Will discuss with Dr. Caceres with regard to possible initiation of steroid's, if underlying COPD is a major cause for the current pulmonary state. March 10: Patient was dialyzed yesterday. Over 3 L ultrafiltration done. Patient will be dialyzed again today with ultrafiltration. Continue to monitor pulmonary status. Discussed with . March 09: Seen this morning during hemodialysis. Patient has a femoral catheter for dialysis access. Aim to ultrafiltrate 3 to 4 L. Postdialysis will stop IV Lasix. We will continue to monitor urine output and renal parameters. Phos binders ordered. Per orders. Ultrasound results noted. Previously: Since diuretic treatment is not working, and the patient is volume overloaded and has difficulty breathing with lower extremity edema and possible ascites will aim to dialyze and do ultrafiltration. Adjust blood pressure medication. Kidney ultrasound, results noted Flomax twice daily Adjust the diet. Change to renal Pulmonary toilet Afterload preload reduction Avoid nephrotoxic's Subjective ROS Limited/Unobtainable: No Constitutional: Reports: malaise Objective Objective Last 24 Hour Vital Signs Date Time Temp Pulse Resp B/P (MAP) Pulse Ox O2 Delivery O2 Flow Rate FiO2 03/13/20 10:48 82 18 96 Venturi Mask 14.0 55 79 18 89 03/13/20 09:00 Nasal Cannula 2.0 03/13/20 08:00 85 03/13/20 08:00 97.8 90 22 128/54 (78) 93 03/13/20 07:45 94 Venturi Mask 10.0 45 03/13/20 06:56 132/72 03/13/20 04:00 88 03/13/20 04:00 97.5 85 26 132/72 (92) 95 03/13/20 00:00 97.9 80 26 138/68 (91) 100 03/13/20 00:00 85 03/12/20 22:04 127/67 03/12/20 21:00 Non-Rebreather 15.0 03/12/20 20:51 79 18 95 Venturi Mask 14.0 55 77 18 93 03/12/20 20:00 88 03/12/20 20:00 97.5 80 28 127/67 (87) 99 03/12/20 19:00 93 Venturi Mask 10.0 45 03/12/20 16:00 91 03/12/20 16:00 97.7 84 22 130/61 (84) 99 03/12/20 15:57 130/61 03/12/20 12:00 97.5 88 24 139/62 (87) 92 03/12/20 12:00 87 Intake and Output 03/12/20 03/13/20 19:00 07:00 Intake Total 600 ml Output Total 3000 ml Balance -2400 ml Intake Oral 600 ml Hemodialysis UF 3000 ml # Voids 2 # Bowel Movements 1 Current Medications Medications (Trade) Dose Ordered Sig/Melissa Route PRN Reason Start Time Stop Time Status Last Admin Dose Admin Acetaminophen/ Hydrocodone Bitart ([place] 5/325) 1 tab Q4H PRN ORAL Moderate Pain (Pain Scale 4-6) 03/06/20 19:00 03/13/20 18:59 03/10/20 06:15 Allopurinol (allopurinoL) 300 mg DAILY ORAL 03/09/20 14:30 04/08/20 14:29 03/13/20 09:27 Budesonide (Pulmicort) 0.25 mg EVERY 12 HOURS HHN 03/06/20 21:00 06/04/20 20:59 03/13/20 10:51 Ceftriaxone Sodium 1 gm/ Sodium Chloride 55 ml @ 110 mls/hr Q24H IVPB 03/08/20 17:00 11/9/20 16:59 03/13/20 16:37 Chlorhexidine Gluconate (Cherry-Hex 2%) 1 applic DAILY@2000 TOPIC 03/10/20 21:45 06/08/20 21:44 03/12/20 20:29 Citalopram Hydrobromide (CeleXA) 20 mg DAILY ORAL 03/10/20 09:00 04/09/20 08:59 03/13/20 09:27 Clonidine HCl (Catapres Tab) 0.1 mg Q4H PRN ORAL SBP>170 03/06/20 16:15 06/04/20 16:14 Dextrose (Dextrose 50%) 25 ml Q30M PRN IV Hypoglycemia 03/13/20 16:30 06/11/20 16:29 Dextrose (Dextrose 50%) 50 ml Q30M PRN IV Hypoglycemia 03/13/20 16:30 06/11/20 16:29 Diphenhydramine HCl (Benadryl) 50 mg Q6H PRN ORAL Itching 03/06/20 19:00 04/05/20 18:59 Docusate Sodium (Colace) 100 mg THREE TIMES A DAY ORAL 03/08/20 13:00 04/07/20 12:59 03/13/20 17:22 Guaifenesin/ Dextromethorphan (Robitussin DM Syrup) 10 ml Q4H PRN ORAL For Cough 03/06/20 19:00 06/04/20 18:59 03/12/20 00:51 Heparin Sodium (Porcine) (Heparin 5000 units/ml) 5,000 units BID SUBQ 03/07/20 09:00 04/21/20 08:59 03/13/20 17:23 Hydralazine HCl (Apresoline) 50 mg Q8HR ORAL 03/11/20 14:00 06/04/20 17:59 03/13/20 13:12 Insulin Aspart (NovoLOG) BEFORE MEALS AND HS SUBQ 03/13/20 16:30 06/11/20 16:29 03/13/20 16:36 Lorazepam (Ativan) 1 mg Q6H PRN ORAL For Anxiety 03/09/20 23:30 03/16/20 23:29 Methylprednisolone Sodium Succinate (Solu-MEDROL) 40 mg EVERY 6 HOURS IVP 03/11/20 12:00 06/09/20 11:59 03/13/20 17:23 Metolazone (Zaroxolyn) 10 mg DAILY ORAL 03/10/20 09:00 04/09/20 08:59 03/13/20 09:27 Morphine Sulfate (Morphine Sulfate) 2 mg Q4H PRN IVP For Pain 03/06/20 18:45 03/13/20 18:44 Pantoprazole (Protonix) 40 mg EVERY 12 HOURS ORAL 03/08/20 21:00 04/07/20 20:59 03/13/20 09:27 Phenol/Menthol (Chloraseptic) 1 spray TIDPRN PRN ORAL For Pain 03/06/20 19:00 06/04/20 18:59 Sevelamer Carbonate (Renvela) 1,600 mg THREE TIMES A DAY ORAL 03/09/20 09:00 06/07/20 08:59 03/13/20 17:22 Tamsulosin HCl (Flomax) 0.4 mg BID ORAL 03/08/20 11:30 04/07/20 11:29 03/13/20 17:22 Vitamin B Complex (Vitamin B Complex) 1 tab DAILY ORAL 03/07/20 09:00 06/05/20 08:59 03/13/20 09:27 Laboratory Tests 03/12/20 13:15: POC Whole Blood Glucose 150H 03/12/20 15:32: Body Fluid Source Thoracentesis, Body Fluid Volume 27, Body Fluid Appearance Hazy, Body Fluid RBC 737, Body Fluid Total Nucleated Cells 21, Body Fluid Polynuclear WBCs (%) 6, Body Fluid Mononuclear WBCs (%) 89, Body Fluid Mesothelial Cells (%) 5, Body Fluid Comment 03/12/20 15:52: Body Fluid Glucose [Pending], Body Fluid Total Protein [Pending], Body Fluid Lactate Dehydrogenase [Pending] 03/12/20 16:30: Arterial Blood pH 7.358, Arterial Blood Partial Pressure CO2 56.4*H, Arterial Blood Partial Pressure O2 63.1L, Arterial Blood HCO3 31.0H, Arterial Blood Oxygen Saturation 90.2L, Arterial Blood Base Excess 4.4H, Oscar Test Positive 03/12/20 18:07: POC Whole Blood Glucose 388H 03/12/20 20:35: POC Whole Blood Glucose 223H 03/13/20 06:15: White Blood Count 11.9H, Red Blood Count 3.98L, Hemoglobin 10.9L, Hematocrit 35.7L, Mean Corpuscular Volume 90, Mean Corpuscular Hemoglobin 27.4, Mean Corpuscular Hemoglobin Concent 30.5L, Red Cell Distribution Width 14.6, Platelet Count 231, Mean Platelet Volume 8.4, Neutrophils (%) (Auto) , Lymphocytes (%) (Auto) , Monocytes (%) (Auto) , Eosinophils (%) (Auto) , Basophils (%) (Auto) , Differential Total Cells Counted 100, Neutrophils % (Manual) 91H, Lymphocytes % (Manual) 5L, Monocytes % (Manual) 4, Eosinophils % (Manual) 0, Basophils % (Manual) 0, Band Neutrophils 0, Platelet Estimate Adequate, Platelet Morphology Normal, Hypochromasia 1+, Anisocytosis 1+, Sodium Level 136, Potassium Level 4.4, Chloride Level 99, Carbon Dioxide Level 30, Anion Gap 7, Blood Urea Nitrogen 58H, Creatinine 3.8H, Estimat Glomerular Filtration Rate 19.3, Glucose Level 341H, Uric Acid 4.9, Calcium Level 8.3L, Phosphorus Level 4.7, Magnesium Level 2.2, Total Bilirubin 0.2, Aspartate Amino Transf (AST/SGOT) 17, Alanine Aminotransferase (ALT/SGPT) 22, Alkaline Phosphatase 100, C-Reactive Protein, Quantitative 6.1H, Pro-B-Type Natriuretic Peptide 4869H, Total Protein 6.4, Albumin 2.6L, Globulin 3.8, Albumin/Globulin Ratio 0.7L 03/13/20 07:03: POC Whole Blood Glucose 317H 03/13/20 07:43: Arterial Blood pH 7.358, Arterial Blood Partial Pressure CO2 51.6H, Arterial Blood Partial Pressure O2 74.8L, Arterial Blood HCO3 28.4H, Arterial Blood Oxygen Saturation 94.5L, Arterial Blood Base Excess 2.2H, Oscar Test Positive 03/13/20 11:53: POC Whole Blood Glucose 239H Height (Feet): 5 Height (Inches): 9.00 Weight (Pounds): 228 General Appearance: no apparent distress EENT: other - On Venturi mask Cardiovascular: normal rate Respiratory/Chest: decreased breath sounds Abdomen: distended Rene Singh MD Mar 13, 2020 11:56
[2020-03-13 12:00] VITALS: BP 141/70
--- NOTE | 2020-03-13 12:17 | Cardiac Electrophysiology PN ---
Assessment/Plan Assessment/Plan 1. Severe bilateral lower extremity edema with shortness of breath and BNP of almost 4000. EF 60%. Due to CHF due to diastolic dysfunction renal failure as well as COPD. Now on HD and Zaroxyline 2. Hypertension. On HD, Zaroxyline 10 daily, hydralazine 50 mg tid and p.r.n. clonidine. 3. Renal failure, creatinine was 3.9 that increased to >4 with BUN 80. VIRGINIE Singh. Started on HD 4. COPD. VIRGINIE RN Subjective Subjective No CP. Still SOB depite HD. ECG SR with RBBB, LAFB Got RFV Janusz and had HD 4 liters on 03/09 and 3 liters on 03/10 Noncompliant on NRB FM. HD pending today Objective Last 24 Hour Vital Signs Date Time Temp Pulse Resp B/P (MAP) Pulse Ox O2 Delivery O2 Flow Rate FiO2 03/13/20 10:48 82 18 96 Venturi Mask 14.0 55 79 18 89 03/13/20 09:00 Nasal Cannula 2.0 03/13/20 08:00 85 03/13/20 08:00 97.8 90 22 128/54 (78) 93 03/13/20 07:45 94 Venturi Mask 10.0 45 03/13/20 06:56 132/72 03/13/20 04:00 88 03/13/20 04:00 97.5 85 26 132/72 (92) 95 03/13/20 00:00 97.9 80 26 138/68 (91) 100 03/13/20 00:00 85 03/12/20 22:04 127/67 03/12/20 21:00 Non-Rebreather 15.0 03/12/20 20:51 79 18 95 Venturi Mask 14.0 55 77 18 93 03/12/20 20:00 88 03/12/20 20:00 97.5 80 28 127/67 (87) 99 03/12/20 19:00 93 Venturi Mask 10.0 45 03/12/20 16:00 91 03/12/20 16:00 97.7 84 22 130/61 (84) 99 03/12/20 15:57 130/61 Intake and Output 03/12/20 03/13/20 19:00 07:00 Intake Total 600 ml Output Total 3000 ml Balance -2400 ml Intake Oral 600 ml Hemodialysis UF 3000 ml # Voids 2 # Bowel Movements 1 Laboratory Tests Test 03/12/20 13:15 03/12/20 15:32 03/12/20 15:52 03/12/20 16:30 POC Whole Blood Glucose 150 MG/DL (74-106) H Body Fluid Source Thoracentesis Body Fluid Volume 27 mL Body Fluid Appearance Hazy (Clear) Body Fluid RBC 737 /CUMM Body Fluid Total Nucleated Cells 21 /CUMM Body Fluid Polynuclear WBCs (%) 6 % Body Fluid Mononuclear WBCs (%) 89 % Body Fluid Mesothelial Cells (%) 5 % Body Fluid Comment Body Fluid Glucose Pending Body Fluid Total Protein Pending Body Fluid Lactate Dehydrogenase Pending Arterial Blood pH 7.358 (7.350-7.450) Arterial Blood Partial Pressure CO2 56.4 mmHg (35.0-45.0) *H Arterial Blood Partial Pressure O2 63.1 mmHg (75.0-100.0) L Arterial Blood HCO3 31.0 mmol/L (22.0-26.0) H Arterial Blood Oxygen Saturation 90.2 % (95-100) L Arterial Blood Base Excess 4.4 (-2-2) H Oscar Test Positive Test 03/12/20 18:07 03/12/20 20:35 03/13/20 06:15 03/13/20 07:03 POC Whole Blood Glucose 388 MG/DL (74-106) H 223 MG/DL (74-106) H 317 MG/DL (74-106) H White Blood Count 11.9 K/UL (4.8-10.8) H Red Blood Count 3.98 M/UL (4.70-6.10) L Hemoglobin 10.9 G/DL (14.2-18.0) L Hematocrit 35.7 % (42.0-52.0) L Mean Corpuscular Volume 90 FL (80-99) Mean Corpuscular Hemoglobin 27.4 PG (27.0-31.0) Mean Corpuscular Hemoglobin Concent 30.5 G/DL (32.0-36.0) L Red Cell Distribution Width 14.6 % (11.6-14.8) Platelet Count 231 K/UL (150-450) Mean Platelet Volume 8.4 FL (6.5-10.1) Neutrophils (%) (Auto) % (45.0-75.0) Lymphocytes (%) (Auto) % (20.0-45.0) Monocytes (%) (Auto) % (1.0-10.0) Eosinophils (%) (Auto) % (0.0-3.0) Basophils (%) (Auto) % (0.0-2.0) Differential Total Cells Counted 100 Neutrophils % (Manual) 91 % (45-75) H Lymphocytes % (Manual) 5 % (20-45) L Monocytes % (Manual) 4 % (1-10) Eosinophils % (Manual) 0 % (0-3) Basophils % (Manual) 0 % (0-2) Band Neutrophils 0 % (0-8) Platelet Estimate Adequate Platelet Morphology Normal Hypochromasia 1+ Anisocytosis 1+ Sodium Level 136 MMOL/L (136-145) Potassium Level 4.4 MMOL/L (3.5-5.1) Chloride Level 99 MMOL/L (98-107) Carbon Dioxide Level 30 MMOL/L (21-32) Anion Gap 7 mmol/L (5-15) Blood Urea Nitrogen 58 mg/dL (7-18) H Creatinine 3.8 MG/DL (0.55-1.30) H Estimat Glomerular Filtration Rate 19.3 mL/min (>60) Glucose Level 341 MG/DL (74-106) H Uric Acid 4.9 MG/DL (2.6-7.2) Calcium Level 8.3 MG/DL (8.5-10.1) L Phosphorus Level 4.7 MG/DL (2.5-4.9) Magnesium Level 2.2 MG/DL (1.8-2.4) Total Bilirubin 0.2 MG/DL (0.2-1.0) Aspartate Amino Transf (AST/SGOT) 17 U/L (15-37) Alanine Aminotransferase (ALT/SGPT) 22 U/L (12-78) Alkaline Phosphatase 100 U/L (46-116) C-Reactive Protein, Quantitative 6.1 mg/dL (0.00-0.90) H Pro-B-Type Natriuretic Peptide 4869 pg/mL (0-125) H Total Protein 6.4 G/DL (6.4-8.2) Albumin 2.6 G/DL (3.4-5.0) L Globulin 3.8 g/dL Albumin/Globulin Ratio 0.7 (1.0-2.7) L Test 03/13/20 07:43 03/13/20 11:53 Arterial Blood pH 7.358 (7.350-7.450) Arterial Blood Partial Pressure CO2 51.6 mmHg (35.0-45.0) H Arterial Blood Partial Pressure O2 74.8 mmHg (75.0-100.0) L Arterial Blood HCO3 28.4 mmol/L (22.0-26.0) H Arterial Blood Oxygen Saturation 94.5 % (95-100) L Arterial Blood Base Excess 2.2 (-2-2) H Oscar Test Positive POC Whole Blood Glucose 239 MG/DL (74-106) H Objective HEAD AND NECK: Positive JVD. LUNGS: Decreased breath sounds. CARDIOVASCULAR: Regular S1 and S2 with no gallop. ABDOMEN: Soft. EXTREMITIES: 2+ pitting edema in lower extremities as well as 2+ pitting edema in right arm. RFV Ponce Wesley MD Mar 13, 2020 12:17
--- NOTE | 2020-03-13 13:09 | Infectious Diseases Prog Note ---
Assessment/Plan Assessment/Plan IMPRESSION: 1. Pneumonia. 2. COPD. 3. Pulmonary edema. 4. CHF. 5. Diabetes mellitus. 6. Hypertension. 7. ESRD 8. Anemia. 9. BPH. 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 Pleural effusion RECOMMENDATION: Continue ceftriaxone X 2 days Subjective ROS Limited/Unobtainable: No Constitutional: Reports: no symptoms, other - feels better Respiratory: Reports: no symptoms, other - had thoracentesis 150cc fluid was removed Cardiovascular: Reports: no symptoms Gastrointestinal/Abdominal: Reports: no symptoms Genitourinary: Reports: no symptoms Allergies: Coded Allergies: PENICILLINS (Verified Allergy, Unknown, 03/06/20) Uncoded Allergies: SEAFOOD (Allergy, Unknown, 03/06/20) Objective Last 24 Hour Vital Signs Date Time Temp Pulse Resp B/P (MAP) Pulse Ox O2 Delivery O2 Flow Rate FiO2 03/13/20 12:00 82 03/13/20 12:00 97.8 81 20 141/70 (93) 92 03/13/20 10:48 82 18 96 Venturi Mask 14.0 55 79 18 89 03/13/20 09:00 Nasal Cannula 2.0 03/13/20 08:00 85 03/13/20 08:00 97.8 90 22 128/54 (78) 93 03/13/20 07:45 94 Venturi Mask 10.0 45 03/13/20 06:56 132/72 03/13/20 04:00 88 03/13/20 04:00 97.5 85 26 132/72 (92) 95 03/13/20 00:00 97.9 80 26 138/68 (91) 100 03/13/20 00:00 85 03/12/20 22:04 127/67 03/12/20 21:00 Non-Rebreather 15.0 03/12/20 20:51 79 18 95 Venturi Mask 14.0 55 77 18 93 03/12/20 20:00 88 03/12/20 20:00 97.5 80 28 127/67 (87) 99 03/12/20 19:00 93 Venturi Mask 10.0 45 03/12/20 16:00 91 03/12/20 16:00 97.7 84 22 130/61 (84) 99 03/12/20 15:57 130/61 Height (Feet): 5 Height (Inches): 9.00 Weight (Pounds): 228 General Appearance: no acute distress HEENT: mucous membranes moist Respiratory/Chest: lungs clear, other - oxygen by nasal cannula Cardiovascular: normal rate Abdomen: soft, non tender Extremities: other - decreased edema Neurologic/Psychiatric: alert, responsive Laboratory Tests Test 03/12/20 13:15 03/12/20 15:32 03/12/20 15:52 03/12/20 16:30 POC Whole Blood Glucose 150 MG/DL (74-106) H Body Fluid Source Thoracentesis Body Fluid Volume 27 mL Body Fluid Appearance Hazy (Clear) Body Fluid RBC 737 /CUMM Body Fluid Total Nucleated Cells 21 /CUMM Body Fluid Polynuclear WBCs (%) 6 % Body Fluid Mononuclear WBCs (%) 89 % Body Fluid Mesothelial Cells (%) 5 % Body Fluid Comment Body Fluid Glucose Pending Body Fluid Total Protein Pending Body Fluid Lactate Dehydrogenase Pending Arterial Blood pH 7.358 (7.350-7.450) Arterial Blood Partial Pressure CO2 56.4 mmHg (35.0-45.0) *H Arterial Blood Partial Pressure O2 63.1 mmHg (75.0-100.0) L Arterial Blood HCO3 31.0 mmol/L (22.0-26.0) H Arterial Blood Oxygen Saturation 90.2 % (95-100) L Arterial Blood Base Excess 4.4 (-2-2) H Oscar Test Positive Test 03/12/20 18:07 03/12/20 20:35 03/13/20 06:15 03/13/20 07:03 POC Whole Blood Glucose 388 MG/DL (74-106) H 223 MG/DL (74-106) H 317 MG/DL (74-106) H White Blood Count 11.9 K/UL (4.8-10.8) H Red Blood Count 3.98 M/UL (4.70-6.10) L Hemoglobin 10.9 G/DL (14.2-18.0) L Hematocrit 35.7 % (42.0-52.0) L Mean Corpuscular Volume 90 FL (80-99) Mean Corpuscular Hemoglobin 27.4 PG (27.0-31.0) Mean Corpuscular Hemoglobin Concent 30.5 G/DL (32.0-36.0) L Red Cell Distribution Width 14.6 % (11.6-14.8) Platelet Count 231 K/UL (150-450) Mean Platelet Volume 8.4 FL (6.5-10.1) Neutrophils (%) (Auto) % (45.0-75.0) Lymphocytes (%) (Auto) % (20.0-45.0) Monocytes (%) (Auto) % (1.0-10.0) Eosinophils (%) (Auto) % (0.0-3.0) Basophils (%) (Auto) % (0.0-2.0) Differential Total Cells Counted 100 Neutrophils % (Manual) 91 % (45-75) H Lymphocytes % (Manual) 5 % (20-45) L Monocytes % (Manual) 4 % (1-10) Eosinophils % (Manual) 0 % (0-3) Basophils % (Manual) 0 % (0-2) Band Neutrophils 0 % (0-8) Platelet Estimate Adequate Platelet Morphology Normal Hypochromasia 1+ Anisocytosis 1+ Sodium Level 136 MMOL/L (136-145) Potassium Level 4.4 MMOL/L (3.5-5.1) Chloride Level 99 MMOL/L (98-107) Carbon Dioxide Level 30 MMOL/L (21-32) Anion Gap 7 mmol/L (5-15) Blood Urea Nitrogen 58 mg/dL (7-18) H Creatinine 3.8 MG/DL (0.55-1.30) H Estimat Glomerular Filtration Rate 19.3 mL/min (>60) Glucose Level 341 MG/DL (74-106) H Uric Acid 4.9 MG/DL (2.6-7.2) Calcium Level 8.3 MG/DL (8.5-10.1) L Phosphorus Level 4.7 MG/DL (2.5-4.9) Magnesium Level 2.2 MG/DL (1.8-2.4) Total Bilirubin 0.2 MG/DL (0.2-1.0) Aspartate Amino Transf (AST/SGOT) 17 U/L (15-37) Alanine Aminotransferase (ALT/SGPT) 22 U/L (12-78) Alkaline Phosphatase 100 U/L (46-116) C-Reactive Protein, Quantitative 6.1 mg/dL (0.00-0.90) H Pro-B-Type Natriuretic Peptide 4869 pg/mL (0-125) H Total Protein 6.4 G/DL (6.4-8.2) Albumin 2.6 G/DL (3.4-5.0) L Globulin 3.8 g/dL Albumin/Globulin Ratio 0.7 (1.0-2.7) L Test 03/13/20 07:43 03/13/20 11:53 Arterial Blood pH 7.358 (7.350-7.450) Arterial Blood Partial Pressure CO2 51.6 mmHg (35.0-45.0) H Arterial Blood Partial Pressure O2 74.8 mmHg (75.0-100.0) L Arterial Blood HCO3 28.4 mmol/L (22.0-26.0) H Arterial Blood Oxygen Saturation 94.5 % (95-100) L Arterial Blood Base Excess 2.2 (-2-2) H Oscar Test Positive POC Whole Blood Glucose 239 MG/DL (74-106) H Current Medications Medications (Trade) Dose Ordered Sig/Melissa Route PRN Reason Start Time Stop Time Status Last Admin Dose Admin Acetaminophen/ Hydrocodone Bitart ([place] 5/325) 1 tab Q4H PRN ORAL Moderate Pain (Pain Scale 4-6) 03/06/20 19:00 03/13/20 18:59 03/10/20 06:15 Allopurinol (allopurinoL) 300 mg DAILY ORAL 03/09/20 14:30 04/08/20 14:29 03/13/20 09:27 Budesonide (Pulmicort) 0.25 mg EVERY 12 HOURS HHN 03/06/20 21:00 06/04/20 20:59 03/13/20 10:51 Ceftriaxone Sodium 1 gm/ Sodium Chloride 55 ml @ 110 mls/hr Q24H IVPB 03/08/20 17:00 03/15/20 16:59 03/12/20 17:57 Chlorhexidine Gluconate (Cherry-Hex 2%) 1 applic DAILY@2000 TOPIC 03/10/20 21:45 06/08/20 21:44 03/12/20 20:29 Citalopram Hydrobromide (CeleXA) 20 mg DAILY ORAL 03/10/20 09:00 04/09/20 08:59 03/13/20 09:27 Clonidine HCl (Catapres Tab) 0.1 mg Q4H PRN ORAL SBP>170 03/06/20 16:15 06/04/20 16:14 Dextrose (Dextrose 50%) 25 ml Q30M PRN IV Hypoglycemia 03/06/20 20:00 06/04/20 19:59 Dextrose (Dextrose 50%) 50 ml Q30M PRN IV Hypoglycemia 03/06/20 20:00 06/04/20 19:59 Diphenhydramine HCl (Benadryl) 50 mg Q6H PRN ORAL Itching 03/06/20 19:00 04/05/20 18:59 Docusate Sodium (Colace) 100 mg THREE TIMES A DAY ORAL 03/08/20 13:00 04/07/20 12:59 03/13/20 09:26 Guaifenesin/ Dextromethorphan (Robitussin DM Syrup) 10 ml Q4H PRN ORAL For Cough 03/06/20 19:00 06/04/20 18:59 03/12/20 00:51 Heparin Sodium (Porcine) (Heparin 5000 units/ml) 5,000 units BID SUBQ 03/07/20 09:00 04/21/20 08:59 03/13/20 09:28 Hydralazine HCl (Apresoline) 50 mg Q8HR ORAL 03/11/20 14:00 06/04/20 17:59 03/13/20 06:56 Insulin Aspart (NovoLOG) BEFORE MEALS AND HS SUBQ 03/06/20 21:00 06/04/20 20:59 03/13/20 11:57 Lorazepam (Ativan) 1 mg Q6H PRN ORAL For Anxiety 03/09/20 23:30 03/16/20 23:29 Methylprednisolone Sodium Succinate (Solu-MEDROL) 40 mg EVERY 6 HOURS IVP 03/11/20 12:00 06/09/20 11:59 03/13/20 11:58 Metolazone (Zaroxolyn) 10 mg DAILY ORAL 03/10/20 09:00 04/09/20 08:59 03/13/20 09:27 Morphine Sulfate (Morphine Sulfate) 2 mg Q4H PRN IVP For Pain 03/06/20 18:45 03/13/20 18:44 Pantoprazole (Protonix) 40 mg EVERY 12 HOURS ORAL 03/08/20 21:00 04/07/20 20:59 03/13/20 09:27 Phenol/Menthol (Chloraseptic) 1 spray TIDPRN PRN ORAL For Pain 03/06/20 19:00 06/04/20 18:59 Sevelamer Carbonate (Renvela) 1,600 mg THREE TIMES A DAY ORAL 03/09/20 09:00 06/07/20 08:59 03/13/20 09:27 Tamsulosin HCl (Flomax) 0.4 mg BID ORAL 03/08/20 11:30 04/07/20 11:29 03/13/20 09:27 Vitamin B Complex (Vitamin B Complex) 1 tab DAILY ORAL 03/07/20 09:00 06/05/20 08:59 03/13/20 09:27 Brett Pleitez MD Mar 13, 2020 13:09
[2020-03-13 16:00] VITALS: BP 144/74
--- NOTE | 2020-03-13 16:23 | NUR ---
NURSE NOTES: Contacted Dr Chavez to let him know pt blood sugar was 239 for lunch and 289 at this time, and the sliding scale need to be adjusted according to the pt's BMI. Waiting for a call back.
[2020-03-13] MEDS: cefTRIAXone 1 GM in NS 55 ML IVPB SCH (16:37)
--- NOTE | 2020-03-13 19:28 | NUR ---
NURSE NOTES: Pt received from BELKIS Miller. Pt is resting in bed and denies pain. Pt is A/Ox4 and ambulatory with standby assist; Pt can be confused and is a fall risk. Pt is on cardiac monitoring SR w BBB and asymptomatic. Pt has 3LPM with breathing labored; will continue to monitor. Pt is ACHS with new sliding scale.Pt has aryan cath on right femoral site for dialysis and IV access. Bed is locked in lowest position and call light is within reach. Will continue to monitor.
--- NOTE | 2020-03-13 19:30 | NUR ---
NURSE HAND-OFF REPORT: Important Events on Shift: Patient Status: Stable Diet: Renal Pending Orders: Pending Results/Labs: Pending MD notification: Latest Vital Signs: Temperature 97.7 , Pulse 79 , B/P 144 /74 , Respiratory Rate 20 , O2 SAT 92 , Nasal Cannula, O2 Flow Rate 2.0 . Vital Sign Comment: stable EKG Rhythm: Sinus Rhythm w/BBB Rhythm change?: N MD Notified?: N - MD Response: Latest Ryan Fall Score: 60 Fall Risk: High Risk Safety Measures: Call light Within Reach, Bed Alarm Zone 1, Side Rails Side Rails x2, Bed position Low and Locked. Fall Precautions: Yellow Socks Yellow Gown Patient Fall Education Report given to Jimmy/RN.
[2020-03-13 20:00] VITALS: BP 120/81
--- NOTE | 2020-03-13 20:12 | General Progress Note ---
Subjective ROS Limited/Unobtainable: Yes Allergies: Coded Allergies: PENICILLINS (Verified Allergy, Unknown, 03/06/20) Uncoded Allergies: SEAFOOD (Allergy, Unknown, 03/06/20) Objective Last 24 Hour Vital Signs Date Time Temp Pulse Resp B/P (MAP) Pulse Ox O2 Delivery O2 Flow Rate FiO2 03/13/20 19:31 95 Nasal Cannula 3.0 32 03/13/20 16:00 97.7 82 20 144/74 (97) 92 03/13/20 16:00 79 03/13/20 13:12 141/70 03/13/20 12:00 82 03/13/20 12:00 97.8 81 20 141/70 (93) 92 03/13/20 10:48 82 18 96 Venturi Mask 14.0 55 79 18 89 03/13/20 09:00 Nasal Cannula 2.0 03/13/20 08:00 85 03/13/20 08:00 97.8 90 22 128/54 (78) 93 03/13/20 07:45 94 Venturi Mask 10.0 45 03/13/20 06:56 132/72 03/13/20 04:00 88 03/13/20 04:00 97.5 85 26 132/72 (92) 95 03/13/20 00:00 97.9 80 26 138/68 (91) 100 03/13/20 00:00 85 03/12/20 22:04 127/67 03/12/20 21:00 Non-Rebreather 15.0 03/12/20 20:51 79 18 95 Venturi Mask 14.0 55 77 18 93 Intake and Output 03/12/20 03/13/20 19:00 07:00 Intake Total 600 ml Output Total 3000 ml Balance -2400 ml Intake Oral 600 ml Hemodialysis UF 3000 ml # Voids 2 # Bowel Movements 1 Laboratory Tests 03/12/20 20:35: POC Whole Blood Glucose 223H 03/13/20 06:15: White Blood Count 11.9H, Red Blood Count 3.98L, Hemoglobin 10.9L, Hematocrit 35.7L, Mean Corpuscular Volume 90, Mean Corpuscular Hemoglobin 27.4, Mean Corpuscular Hemoglobin Concent 30.5L, Red Cell Distribution Width 14.6, Platelet Count 231, Mean Platelet Volume 8.4, Neutrophils (%) (Auto) , Lymphocytes (%) (Auto) , Monocytes (%) (Auto) , Eosinophils (%) (Auto) , Basophils (%) (Auto) , Differential Total Cells Counted 100, Neutrophils % (Manual) 91H, Lymphocytes % (Manual) 5L, Monocytes % (Manual) 4, Eosinophils % (Manual) 0, Basophils % (Manual) 0, Band Neutrophils 0, Platelet Estimate Adequate, Platelet Morphology Normal, Hypochromasia 1+, Anisocytosis 1+, Sodium Level 136, Potassium Level 4.4, Chloride Level 99, Carbon Dioxide Level 30, Anion Gap 7, Blood Urea Nitrog en 58H, Creatinine 3.8H, Estimat Glomerular Filtration Rate 19.3, Glucose Level 341H, Uric Acid 4.9, Calcium Level 8.3L, Phosphorus Level 4.7, Magnesium Level 2.2, Total Bilirubin 0.2, Aspartate Amino Transf (AST/SGOT) 17, Alanine Aminotransferase (ALT/SGPT) 22, Alkaline Phosphatase 100, C-Reactive Protein, Quantitative 6.1H, Pro-B-Type Natriuretic Peptide 4869H, Total Protein 6.4, A lbumin 2.6L, Globulin 3.8, Albumin/Globulin Ratio 0.7L 03/13/20 07:03: POC Whole Blood Glucose 317H 03/13/20 07:43: Arterial Blood pH 7.358, Arterial Blood Partial Pressure CO2 51.6H, Arterial B lood Partial Pressure O2 74.8L, Arterial Blood HCO3 28.4H, Arterial Blood Oxygen Saturation 94.5L, Arterial Blood Base Excess 2.2H, Oscar Test Positive 03/13/20 11:53: POC Whole Blood Glucose 239H 03/13/20 16:06: POC Whole Blood Glucose 289H Height (Feet): 5 Height (Inches): 9.00 Weight (Pounds): 228 Respiratory/Chest: lungs clear Abdomen: soft Assessment/Plan Problem List: (1) COPD (chronic obstructive pulmonary disease) ICD Codes: J44.9 - Chronic obstructive pulmonary disease, unspecified SNOMED: 00693999 Qualifiers: Qualified Codes: J44.1 - Chronic obstructive pulmonary disease with (acute) exacerbation (2) CHF (congestive heart failure) ICD Codes: I50.9 - Heart failure, unspecified SNOMED: 04160200 Qualifiers: Qualified Codes: I50.9 - Heart failure, unspecified (3) Hypoxia ICD Codes: R09.02 - Hypoxemia SNOMED: 792914771 (4) Renal failure (ARF), acute on chronic ICD Codes: N17.9 - Acute kidney failure, unspecified; N18.9 - Chronic kidney disease, unspecified SNOMED: [id number] Qualifiers: Qualified Codes: N17.9 - Acute kidney failure, unspecified; N18.4 - Chronic kidney disease, stage 4 (severe) Status: progressing, deteriorating Assessment/Plan: arf sob is improving reviewed chart and labs no acute events chf prn oxygen John Chavez MD Mar 13, 2020 20:12
[2020-03-13] MEDS: Dyna-Hex 2% Top Sol 2oz TOPIC SCH (20:41)
[2020-03-14] VITALS: BP 150/80
[2020-03-14] MEDS: Solu-MEDROL 40mg Inj IVP SCH ×4 (01:10→17:34)
[2020-03-14 04:00] VITALS: BP 158/68
[2020-03-14] MEDS: NovoLOG Insulin Flexpen SUBQ SCH ×5 (06:39→21:38)
[2020-03-14] MEDS: HydrALAZINE 50mg tab ORAL SCH ×3 (06:43→21:37)
[2020-03-14] MEDS: Budesonide HHN 0.25mg/2ml ud HHN SCH ×2 (07:21→21:29)
--- NOTE | 2020-03-14 07:52 | NUR ---
NURSE HAND-OFF REPORT: Important Events on Shift:Pt had sliding scale increased and had blood glucose controlled. Patient Status: Stable Diet: Renal Pending Orders: Pending Results/Labs:AM Labs Pending MD notification: Latest Vital Signs: Temperature 97.0 , Pulse 88 , B/P 158 /68 , Respiratory Rate 20 , O2 SAT 96 , Nasal Cannula, O2 Flow Rate 3.0 . Vital Sign Comment: VSS EKG Rhythm: Sinus Rhythm w/BBB Rhythm change?: N MD Notified?: N - MD Response: Latest Ryan Fall Score: 60 Fall Risk: High Risk Safety Measures: Call light Within Reach, Bed Alarm Zone 1, Side Rails Side Rails x2, Bed position Low and Locked. Fall Precautions: Yellow Socks Yellow Gown Patient Fall Education Report given to BELKIS Miller.
[2020-03-14 08:00] VITALS: BP 155/78
--- NOTE | 2020-03-14 08:22 | NUR ---
NURSE NOTES: Received report from Jimmy/RN. Pt is awake, having breakfast in bed. On 3L nasal cannula, no distress or SOB noted. Janusz catheter in right femoral, patent and clean. Bed in the lowest position and locked. Call light within reach, encouraged to use it when need it. Side rails up X3. Will continue plan of care.
[2020-03-14] MEDS: Tamsulosin 0.4mg cap ORAL SCH ×2 (09:54→17:34)
[2020-03-14] MEDS: Docusate 100mg cap ORAL SCH ×3 (09:55→17:34)
[2020-03-14] MEDS: Citalopram Hydrobromide 10mg Tab ORAL SCH (09:55)
[2020-03-14] MEDS: Vitamin B Complex Tab ORAL SCH (09:56)
[2020-03-14] MEDS: Heparin 5000 units/ml inj SUBQ SCH ×2 (09:57→17:35)
[2020-03-14 10:08] LABS: ALBUMIN 2.5 G/DL (3.4-5.0); ALBUMIN/GLOBULIN RATIO 0.6 (1.0-2.7); BILIRUBIN,TOTAL 0.3 MG/DL (0.2-1.0); CALCIUM 8.3 MG/DL (8.5-10.1); CREATININE 4.2 MG/DL (0.55-1.30); PHOSPHORUS 4.7 MG/DL (2.5-4.9); POTASSIUM 4.5 MMOL/L (3.5-5.1)
--- NOTE | 2020-03-14 11:07 | Pulmonology Progress Note ---
Subjective ROS Limited/Unobtainable: Yes Interval Events: Feeling better; On nasal o2 Constitutional: Reports: no symptoms, other - feels better HEENT: Repors: no symptoms Respiratory: Reports: no symptoms Cardiovascular: Reports: no symptoms Gastrointestinal/Abdominal: Reports: no symptoms Genitourinary: Reports: no symptoms Allergies: Coded Allergies: PENICILLINS (Verified Allergy, Unknown, 03/06/20) Uncoded Allergies: SEAFOOD (Allergy, Unknown, 03/06/20) Objective Last 24 Hour Vital Signs Date Time Temp Pulse Resp B/P (MAP) Pulse Ox O2 Delivery O2 Flow Rate FiO2 03/14/20 07:27 96 Nasal Cannula 3.0 32 03/14/20 07:26 84 20 98 Nasal Cannula 3.0 32 73 16 94 03/14/20 06:43 158/68 03/14/20 04:00 88 03/14/20 04:00 97.0 89 20 158/68 (98) 92 03/14/20 00:00 97.5 77 24 150/80 (103) 92 03/14/20 00:00 83 03/13/20 22:00 114/68 03/13/20 21:29 81 18 97 Nasal Cannula 3.0 32 79 18 93 03/13/20 21:00 Nasal Cannula 3.0 03/13/20 20:00 97.5 76 20 120/81 (94) 97 03/13/20 20:00 97 03/13/20 19:31 95 Nasal Cannula 3.0 32 03/13/20 19:10 95 Nasal Cannula 3.0 32 03/13/20 16:00 97.7 82 20 144/74 (97) 92 03/13/20 16:00 79 03/13/20 13:12 141/70 03/13/20 12:00 82 03/13/20 12:00 97.8 81 20 141/70 (93) 92 Intake and Output 03/13/20 03/14/20 19:00 07:00 Intake Total 600 ml 400 ml Output Total 300 ml 800 ml Balance 300 ml -400 ml Intake Oral 600 ml 400 ml Output Urine Total 300 ml 800 ml # Voids 2 # Bowel Movements 1 1 General Appearance: no acute distress HEENT: normocephalic Respiratory: chest wall non-tender, decreased breath sounds Cardiovascular: normal peripheral pulses, normal rate Abdomen: normal bowel sounds Laboratory Tests 03/13/20 11:53: POC Whole Blood Glucose 239H 03/13/20 16:06: POC Whole Blood Glucose 289H 03/13/20 20:38: POC Whole Blood Glucose [Pending] 03/14/20 06:37: POC Whole Blood Glucose 383H 03/14/20 08:50: Sodium Level 131L, Potassium Level 4.5, Chloride Level 97L, Carbon Dioxide Level 27, Anion Gap 7, Blood Urea Nitrogen 80H, Creatinine 4.2H, Estimat Glomerular Filtration Rate 17.2, Glucose Level 363H, Uric Acid 6.2, Calcium Level 8.3L, Phosphorus Level 4.7, Magnesium Level 2.3, Total Bilirubin 0.3, Aspartate Amino Transf (AST/SGOT) 19, Alanine Aminotransferase (ALT/SGPT) 24, Alkaline Phosphatase 93, C-Reactive Protein, Quantitative 4.0H, Pro-B-Type Natriuretic Peptide 4975H, Total Protein 6.9, Albumin 2.5L, Globulin 4.4, Albumin/Globulin Ratio 0.6L Current Medications Medications (Trade) Dose Ordered Sig/Melissa Route PRN Reason Start Time Stop Time Status Last Admin Dose Admin Allopurinol (allopurinoL) 300 mg DAILY ORAL 03/09/20 14:30 04/08/20 14:29 03/14/20 09:00 Budesonide (Pulmicort) 0.25 mg EVERY 12 HOURS HHN 03/06/20 21:00 06/04/20 20:59 03/14/20 07:21 Ceftriaxone Sodium 1 gm/ Sodium Chloride 55 ml @ 110 mls/hr Q24H IVPB 03/08/20 17:00 03/15/20 16:59 03/13/20 16:37 Chlorhexidine Gluconate (Cherry-Hex 2%) 1 applic DAILY@2000 TOPIC 03/10/20 21:45 06/08/20 21:44 03/13/20 20:41 Citalopram Hydrobromide (CeleXA) 20 mg DAILY ORAL 03/10/20 09:00 04/09/20 08:59 03/14/20 09:55 Clonidine HCl (Catapres Tab) 0.1 mg Q4H PRN ORAL SBP>170 03/06/20 16:15 06/04/20 16:14 Dextrose (Dextrose 50%) 25 ml Q30M PRN IV Hypoglycemia 03/13/20 16:30 06/11/20 16:29 Dextrose (Dextrose 50%) 50 ml Q30M PRN IV Hypoglycemia 03/13/20 16:30 06/11/20 16:29 Diphenhydramine HCl (Benadryl) 50 mg Q6H PRN ORAL Itching 03/06/20 19:00 04/05/20 18:59 Docusate Sodium (Colace) 100 mg THREE TIMES A DAY ORAL 03/08/20 13:00 04/07/20 12:59 03/14/20 09:55 Guaifenesin/ Dextromethorphan (Robitussin DM Syrup) 10 ml Q4H PRN ORAL For Cough 03/06/20 19:00 06/04/20 18:59 03/12/20 00:51 Heparin Sodium (Porcine) (Heparin 5000 units/ml) 5,000 units BID SUBQ 03/07/20 09:00 04/21/20 08:59 03/14/20 09:57 Hydralazine HCl (Apresoline) 50 mg Q8HR ORAL 03/11/20 14:00 06/04/20 17:59 03/14/20 06:43 Insulin Aspart (NovoLOG) BEFORE MEALS AND HS SUBQ 03/13/20 16:30 06/11/20 16:29 03/14/20 06:39 Lorazepam (Ativan) 1 mg Q6H PRN ORAL For Anxiety 03/09/20 23:30 03/16/20 23:29 Methylprednisolone Sodium Succinate (Solu-MEDROL) 40 mg EVERY 6 HOURS IVP 03/11/20 12:00 06/09/20 11:59 03/14/20 06:43 Metolazone (Zaroxolyn) 10 mg DAILY ORAL 03/10/20 09:00 04/09/20 08:59 03/14/20 09:55 Pantoprazole (Protonix) 40 mg EVERY 12 HOURS ORAL 03/08/20 21:00 04/07/20 20:59 03/14/20 09:55 Phenol/Menthol (Chloraseptic) 1 spray TIDPRN PRN ORAL For Pain 03/06/20 19:00 06/04/20 18:59 Sevelamer Carbonate (Renvela) 1,600 mg THREE TIMES A DAY ORAL 03/09/20 09:00 06/07/20 08:59 03/14/20 09:55 Tamsulosin HCl (Flomax) 0.4 mg BID ORAL 03/08/20 11:30 04/07/20 11:29 03/14/20 09:54 Vitamin B Complex (Vitamin B Complex) 1 tab DAILY ORAL 03/07/20 09:00 06/05/20 08:59 03/14/20 09:56 Assessment/Plan Assessment/Plan IMPRESSION: 1. Pulmonary infiltrates bilaterally, suspect pulmonary edema. Has persistent opacity R base; S/p 150 ml thoracentesis 2. Hypertension. 3. Diabetes mellitus. 4. Renal failure. 5. COPD. 6. Negative COVID 19 rapid test DISCUSSION: Continue breathing treatments with albuterol and Atrovent Negative COVID 19 Broad-spectrum antibiotics will be given. I will follow carefully. HD to continue Oxygenation improved Saturating 88% on RA Will place on 2-4L/O2via nasal canulae; saturating 95% on 2-3L.min O2 Jie Rivera Omar Syed MD Mar 14, 2020 11:07
--- NOTE | 2020-03-14 11:28 | Nephrology Progress Note ---
Assessment/Plan Problem List: (1) Renal failure (ARF), acute on chronic (2) Hypoxia (3) CHF (congestive heart failure) (4) COPD (chronic obstructive pulmonary disease) (5) HTN (hypertension) (6) Hyperkalemia Assessment Acute renal failure Possible underlying chronic kidney disease Hyperkalemia Respiratory failure: Combination of diastolic CHF, COPD, possible pneumonia Hypertension Diabetes mellitus Negative COVID-19 rapid test Plan March 14: Dialyzed March 12. Serum creatinine today 4.2. Will do dialysis and ultrafiltration today. Continue per pulmonary. March 13: Dialyzed yesterday. Serum creatinine 3.8 unchanged. Continue per pulmonary. Hemodialysis as needed. Continue to monitor renal parameters. March 12: Due for dialysis today. Discussed with pulmonary, patient due for right pleural effusion tap today. Labs reviewed. Continue per current management. Continue to monitor renal parameters. March 11: Patient was dialyzed 2 days in a row with total of 7 L fluid removal. Today's ABG still suggestive of hypoxia. Patient uncooperative and does not keep the oxygen mask on. Labs reviewed. Renal parameters reasonable. Will attempt dialysis again tomorrow. Will discuss with Dr. Caceres with regard to possible initiation of steroid's, if underlying COPD is a major cause for the current pulmonary state. March 10: Patient was dialyzed yesterday. Over 3 L ultrafiltration done. Patient will be dialyzed again today with ultrafiltration. Continue to monitor pulmonary status. Discussed with . March 09: Seen this morning during hemodialysis. Patient has a femoral catheter for dialysis access. Aim to ultrafiltrate 3 to 4 L. Postdialysis will stop IV Lasix. We will continue to monitor urine output and renal parameters. Phos binders ordered. Per orders. Ultrasound results noted. Previously: Since diuretic treatment is not working, and the patient is volume overloaded and has difficulty breathing with lower extremity edema and possible ascites will aim to dialyze and do ultrafiltration. Adjust blood pressure medication. Kidney ultrasound, results noted Flomax twice daily Adjust the diet. Change to renal Pulmonary toilet Afterload preload reduction Avoid nephrotoxic's Subjective ROS Limited/Unobtainable: No Constitutional: Reports: malaise, weakness Objective Objective Last 24 Hour Vital Signs Date Time Temp Pulse Resp B/P (MAP) Pulse Ox O2 Delivery O2 Flow Rate FiO2 03/14/20 08:00 97.8 87 20 155/78 (103) 95 03/14/20 07:27 96 Nasal Cannula 3.0 32 03/14/20 07:26 84 20 98 Nasal Cannula 3.0 32 73 16 94 03/14/20 06:43 158/68 03/14/20 04:00 88 03/14/20 04:00 97.0 89 20 158/68 (98) 92 03/14/20 00:00 97.5 77 24 150/80 (103) 92 03/14/20 00:00 83 03/13/20 22:00 114/68 03/13/20 21:29 81 18 97 Nasal Cannula 3.0 32 79 18 93 03/13/20 21:00 Nasal Cannula 3.0 03/13/20 20:00 97.5 76 20 120/81 (94) 97 03/13/20 20:00 97 03/13/20 19:31 95 Nasal Cannula 3.0 32 03/13/20 19:10 95 Nasal Cannula 3.0 32 03/13/20 16:00 97.7 82 20 144/74 (97) 92 03/13/20 16:00 79 03/13/20 13:12 141/70 03/13/20 12:00 82 03/13/20 12:00 97.8 81 20 141/70 (93) 92 Intake and Output 03/13/20 03/14/20 19:00 07:00 Intake Total 600 ml 400 ml Output Total 300 ml 800 ml Balance 300 ml -400 ml Intake Oral 600 ml 400 ml Output Urine Total 300 ml 800 ml # Voids 2 # Bowel Movements 1 1 Current Medications Medications (Trade) Dose Ordered Sig/Melissa Route PRN Reason Start Time Stop Time Status Last Admin Dose Admin Allopurinol (allopurinoL) 300 mg DAILY ORAL 03/09/20 14:30 04/08/20 14:29 03/14/20 09:00 Budesonide (Pulmicort) 0.25 mg EVERY 12 HOURS HHN 03/06/20 21:00 06/04/20 20:59 03/14/20 07:21 Ceftriaxone Sodium 1 gm/ Sodium Chloride 55 ml @ 110 mls/hr Q24H IVPB 03/08/20 17:00 03/15/20 16:59 03/13/20 16:37 Chlorhexidine Gluconate (Cherry-Hex 2%) 1 applic DAILY@1999 TOPIC 03/10/20 21:45 2/2/21 21:44 03/13/20 20:41 Citalopram Hydrobromide (CeleXA) 20 mg DAILY ORAL 03/10/20 09:00 04/09/20 08:59 03/14/20 09:55 Clonidine HCl (Catapres Tab) 0.1 mg Q4H PRN ORAL SBP>170 03/06/20 16:15 06/04/20 16:14 Dextrose (Dextrose 50%) 25 ml Q30M PRN IV Hypoglycemia 03/13/20 16:30 06/11/20 16:29 Dextrose (Dextrose 50%) 50 ml Q30M PRN IV Hypoglycemia 03/13/20 16:30 06/11/20 16:29 Diphenhydramine HCl (Benadryl) 50 mg Q6H PRN ORAL Itching 03/06/20 19:00 04/05/20 18:59 Docusate Sodium (Colace) 100 mg THREE TIMES A DAY ORAL 03/08/20 13:00 04/07/20 12:59 03/14/20 09:55 Guaifenesin/ Dextromethorphan (Robitussin DM Syrup) 10 ml Q4H PRN ORAL For Cough 03/06/20 19:00 06/04/20 18:59 03/12/20 00:51 Heparin Sodium (Porcine) (Heparin 5000 units/ml) 5,000 units BID SUBQ 03/07/20 09:00 04/21/20 08:59 03/14/20 09:57 Hydralazine HCl (Apresoline) 50 mg Q8HR ORAL 03/11/20 14:00 06/04/20 17:59 03/14/20 06:43 Insulin Aspart (NovoLOG) BEFORE MEALS AND HS SUBQ 03/13/20 16:30 06/11/20 16:29 03/14/20 06:39 Lorazepam (Ativan) 1 mg Q6H PRN ORAL For Anxiety 03/09/20 23:30 03/16/20 23:29 Methylprednisolone Sodium Succinate (Solu-MEDROL) 40 mg EVERY 6 HOURS IVP 03/11/20 12:00 06/09/20 11:59 03/14/20 06:43 Metolazone (Zaroxolyn) 10 mg DAILY ORAL 03/10/20 09:00 04/09/20 08:59 03/14/20 09:55 Pantoprazole (Protonix) 40 mg EVERY 12 HOURS ORAL 03/08/20 21:00 04/07/20 20:59 03/14/20 09:55 Phenol/Menthol (Chloraseptic) 1 spray TIDPRN PRN ORAL For Pain 03/06/20 19:00 06/04/20 18:59 Sevelamer Carbonate (Renvela) 1,600 mg THREE TIMES A DAY ORAL 03/09/20 09:00 06/07/20 08:59 03/14/20 09:55 Tamsulosin HCl (Flomax) 0.4 mg BID ORAL 03/08/20 11:30 04/07/20 11:29 03/14/20 09:54 Vitamin B Complex (Vitamin B Complex) 1 tab DAILY ORAL 03/07/20 09:00 06/05/20 08:59 03/14/20 09:56 Laboratory Tests 03/13/20 11:53: POC Whole Blood Glucose 239H 03/13/20 16:06: POC Whole Blood Glucose 289H 03/13/20 20:38: POC Whole Blood Glucose [Pending] 03/14/20 06:37: POC Whole Blood Glucose 383H 03/14/20 08:50: Sodium Level 131L, Potassium Level 4.5, Chloride Level 97L, Carbon Dioxide Level 27, Anion Gap 7, Blood Urea Nitrogen 80H, Creatinine 4.2H, Estimat Glomerular Filtration Rate 17.2, Glucose Level 363H, Uric Acid 6.2, Calcium Level 8.3L, Phosphorus Level 4.7, Magnesium Level 2.3, Total Bilirubin 0.3, Aspartate Amino Transf (AST/SGOT) 19, Alanine Aminotransferase (ALT/SGPT) 24, Alkaline Phosphatase 93, C-Reactive Protein, Quantitative 4.0H, Pro-B-Type Natriuretic Peptide 4975H, Total Protein 6.9, Albumin 2.5L, Globulin 4.4, Albumin/Globulin Ratio 0.6L Height (Feet): 5 Height (Inches): 9.00 Weight (Pounds): 228 General Appearance: mild distress Cardiovascular: tachycardia Respiratory/Chest: decreased breath sounds Abdomen: distended Rene Singh MD Mar 14, 2020 11:28
[2020-03-14 12:00] VITALS: BP 147/73
--- NOTE | 2020-03-14 15:13 | General Progress Note ---
Subjective ROS Limited/Unobtainable: Yes Allergies: Coded Allergies: PENICILLINS (Verified Allergy, Unknown, 03/06/20) Uncoded Allergies: SEAFOOD (Allergy, Unknown, 03/06/20) Objective Last 24 Hour Vital Signs Date Time Temp Pulse Resp B/P (MAP) Pulse Ox O2 Delivery O2 Flow Rate FiO2 03/14/20 13:18 147/73 03/14/20 12:00 83 03/14/20 12:00 97.9 81 20 147/73 (97) 94 03/14/20 09:00 Nasal Cannula 3.0 03/14/20 08:00 91 03/14/20 08:00 97.8 87 20 155/78 (103) 95 03/14/20 07:27 96 Nasal Cannula 3.0 32 03/14/20 07:26 84 20 98 Nasal Cannula 3.0 32 73 16 94 03/14/20 06:43 158/68 03/14/20 04:00 88 03/14/20 04:00 97.0 89 20 158/68 (98) 92 03/14/20 00:00 97.5 77 24 150/80 (103) 92 03/14/20 00:00 83 03/13/20 22:00 114/68 03/13/20 21:29 81 18 97 Nasal Cannula 3.0 32 79 18 93 03/13/20 21:00 Nasal Cannula 3.0 03/13/20 20:00 97.5 76 20 120/81 (94) 97 03/13/20 20:00 97 03/13/20 19:31 95 Nasal Cannula 3.0 32 03/13/20 19:10 95 Nasal Cannula 3.0 32 03/13/20 16:00 97.7 82 20 144/74 (97) 92 03/13/20 16:00 79 Intake and Output 03/13/20 03/14/20 19:00 07:00 Intake Total 600 ml 400 ml Output Total 300 ml 800 ml Balance 300 ml -400 ml Intake Oral 600 ml 400 ml Output Urine Total 300 ml 800 ml # Voids 2 # Bowel Movements 1 1 Laboratory Tests 03/13/20 16:06: POC Whole Blood Glucose 289H 03/13/20 20:38: POC Whole Blood Glucose [Pending] 03/14/20 06:37: POC Whole Blood Glucose 383H 03/14/20 08:50: Sodium Level 131L, Potassium Level 4.5, Chloride Level 97L, Carbon Dioxide Level 27, Anion Gap 7, Blood Urea Nitrogen 80H, Creatinine 4.2H, Estimat Glomerular Filtration Rate 17.2, Glucose Level 363H, Uric Acid 6.2, Calcium Level 8.3L, Phosphorus Level 4.7, Magnesium Level 2.3, Total Bilirubin 0.3, Aspartate Amino Transf (AST/SGOT) 19, Alanine Aminotransferase (ALT/SGPT) 24, Alkaline Phosphatase 93, C-Reactive Protein, Quantitative 4.0H, Pro-B-Type Natriuretic Peptide 4975H, Total Protein 6.9, Albumin 2.5L, Globulin 4.4, Albumin/Globulin Ratio 0.6L 03/14/20 11:44: POC Whole Blood Glucose 298H Height (Feet): 5 Height (Inches): 9.00 Weight (Pounds): 228 Cardiovascular: regular rhythm Respiratory/Chest: lungs clear Assessment/Plan Problem List: (1) COPD (chronic obstructive pulmonary disease) ICD Codes: J44.9 - Chronic obstructive pulmonary disease, unspecified SNOMED: 66294824 Qualifiers: Qualified Codes: J44.1 - Chronic obstructive pulmonary disease with (acute) exacerbation (2) CHF (congestive heart failure) ICD Codes: I50.9 - Heart failure, unspecified SNOMED: 71987476 Qualifiers: Qualified Codes: I50.9 - Heart failure, unspecified (3) Hypoxia ICD Codes: R09.02 - Hypoxemia SNOMED: 757385157 (4) Renal failure (ARF), acute on chronic ICD Codes: N17.9 - Acute kidney failure, unspecified; N18.9 - Chronic kidney disease, unspecified SNOMED: 418421181 Qualifiers: Qualified Codes: N17.9 - Acute kidney failure, unspecified; N18.4 - Chronic kidney disease, stage 4 (severe) Status: progressing, deteriorating Assessment/Plan: elevated sugar.consulted dr egnie armstrong copd exac is improving chf is improving diaylsis per renal arf John Chavez MD Mar 14, 2020 15:13
[2020-03-14 16:00] VITALS: BP 162/84
--- NOTE | 2020-03-14 16:25 | Cardiac Electrophysiology PN ---
Assessment/Plan Assessment/Plan 1. Severe bilateral lower extremity edema with shortness of breath and BNP of almost 4000. EF 60%. Due to CHF due to diastolic dysfunction renal failure as well as COPD. Now on HD. DC Zaroxyline 2. Hypertension. On HD , hydralazine 50 mg tid and p.r.n. clonidine. 3. Renal failure, creatinine was 3.9 that increased to >4 with BUN [address] DW Dr. Singh. Started on HD 4. COPD. DW RN and Dr. Singh Subjective Subjective No CP. Still SOB depite HD. ECG SR with RBBB, LAFB Got RFV Janusz and had HD 4 liters on 03/09 and 3 liters on 03/10 HD pending today. On Nasal Cannula Objective Last 24 Hour Vital Signs Date Time Temp Pulse Resp B/P (MAP) Pulse Ox O2 Delivery O2 Flow Rate FiO2 03/14/20 13:18 147/73 03/14/20 12:00 83 03/14/20 12:00 97.9 81 20 147/73 (97) 94 03/14/20 09:00 Nasal Cannula 3.0 03/14/20 08:00 91 03/14/20 08:00 97.8 87 20 155/78 (103) 95 03/14/20 07:27 96 Nasal Cannula 3.0 32 03/14/20 07:26 84 20 98 Nasal Cannula 3.0 32 73 16 94 03/14/20 06:43 158/68 03/14/20 04:00 88 03/14/20 04:00 97.0 89 20 158/68 (98) 92 03/14/20 00:00 97.5 77 24 150/80 (103) 92 03/14/20 00:00 83 03/13/20 22:00 114/68 03/13/20 21:29 81 18 97 Nasal Cannula 3.0 32 79 18 93 03/13/20 21:00 Nasal Cannula 3.0 03/13/20 20:00 97.5 76 20 120/81 (94) 97 03/13/20 20:00 97 03/13/20 19:31 95 Nasal Cannula 3.0 32 03/13/20 19:10 95 Nasal Cannula 3.0 32 Intake and Output 03/13/20 03/14/20 19:00 07:00 Intake Total 600 ml 400 ml Output Total 300 ml 800 ml Balance 300 ml -400 ml Intake Oral 600 ml 400 ml Output Urine Total 300 ml 800 ml # Voids 2 # Bowel Movements 1 1 Laboratory Tests Test 03/13/20 20:38 03/14/20 06:37 03/14/20 08:50 03/14/20 11:44 POC Whole Blood Glucose Pending 383 MG/DL (74-106) H 298 MG/DL (74-106) H Sodium Level 131 MMOL/L (136-145) L Potassium Level 4.5 MMOL/L (3.5-5.1) Chloride Level 97 MMOL/L (98-107) L Carbon Dioxide Level 27 MMOL/L (21-32) Anion Gap 7 mmol/L (5-15) Blood Urea Nitrogen 80 mg/dL (7-18) H Creatinine 4.2 MG/DL (0.55-1.30) H Estimat Glomerular Filtration Rate 17.2 mL/min (>60) Glucose Level 363 MG/DL (74-106) H Uric Acid 6.2 MG/DL (2.6-7.2) Calcium Level 8.3 MG/DL (8.5-10.1) L Phosphorus Level 4.7 MG/DL (2.5-4.9) Magnesium Level 2.3 MG/DL (1.8-2.4) Total Bilirubin 0.3 MG/DL (0.2-1.0) Aspartate Amino Transf (AST/SGOT) 19 U/L (15-37) Alanine Aminotransferase (ALT/SGPT) 24 U/L (12-78) Alkaline Phosphatase 93 U/L (46-116) C-Reactive Protein, Quantitative 4.0 mg/dL (0.00-0.90) H Pro-B-Type Natriuretic Peptide 4975 pg/mL (0-125) H Total Protein 6.9 G/DL (6.4-8.2) Albumin 2.5 G/DL (3.4-5.0) L Globulin 4.4 g/dL Albumin/Globulin Ratio 0.6 (1.0-2.7) L Objective HEAD AND NECK: Positive JVD. LUNGS: Decreased breath sounds. CARDIOVASCULAR: Regular S1 and S2 with no gallop. ABDOMEN: Soft. EXTREMITIES: 2+ pitting edema in lower extremities as well as 2+ pitting edema in right arm. RFV Janusz Toluie,Ponce MD Mar 14, 2020 16:25
[2020-03-14] MEDS: cefTRIAXone 1 GM in NS 55 ML IVPB SCH (17:34)
--- NOTE | 2020-03-14 19:12 | NUR ---
NURSE HAND-OFF REPORT: Important Events on Shift:Pt has dialysis today Patient Status: Stable Diet: renal Pending Orders: Pending Results/Labs: Pending MD notification: Latest Vital Signs: Temperature 97.9 , Pulse 82 , B/P 162 /84 , Respiratory Rate 20 , O2 SAT 94 , Nasal Cannula, O2 Flow Rate 3.0 . Vital Sign Comment: Stable EKG Rhythm: Sinus Rhythm w/BBB Rhythm change?: N MD Notified?: N - MD Response: Latest Ryan Fall Score: 60 Fall Risk: High Risk Safety Measures: Call light Within Reach, Bed Alarm Zone 1, Side Rails Side Rails x2, Bed position Low and Locked. Fall Precautions: Yellow Socks Yellow Gown Patient Fall Education Report given to Fransisca/RN.
[2020-03-14 20:00] VITALS: BP 152/71
[2020-03-14] MEDS: Dyna-Hex 2% Top Sol 2oz TOPIC SCH (21:36)
--- NOTE | 2020-03-14 21:54 | NUR ---
NURSE NOTES: Received patient report from BELKIS Miller. Patient is AO x3 awake and able to make needs known. Patient shows no signs of distress or pain at the time. He finished dialysis, per dialysis nurse patient got 3L removed. Patient has femoral omi catheter present. There are no signs of infection or bleeding noted. Patient is on 2L nasal canula and shows no signs of respiratory distress. Bed is in the lowest position, call light is within reach, side rails up x3. Will continue to monitor.
[2020-03-15] VITALS: BP 150/73
[2020-03-15] MEDS: Solu-MEDROL 40mg Inj IVP SCH ×5 (00:34→23:58)
[2020-03-15 04:00] VITALS: BP 146/89
[2020-03-15] MEDS: HydrALAZINE 50mg tab ORAL SCH ×3 (06:03→21:52)
[2020-03-15] MEDS: NovoLOG Insulin Flexpen SUBQ SCH ×7 (06:04→21:54)
[2020-03-15 07:24] LABS: HEMATOCRIT 38.2 % (42.0-52.0); MEAN CORPUSCULAR VOLUME 88 FL (80-99); PLATELET COUNT 269 K/UL (150-450); RED BLOOD COUNT 4.36 M/UL (4.70-6.10); RED CELL DISTRIBUTION WIDTH 14.3 % (11.6-14.8); WHITE BLOOD COUNT 10.9 K/UL (4.8-10.8)
--- NOTE | 2020-03-15 07:27 | NUR ---
NURSE HAND-OFF REPORT: Important Events on Shift:[NA] Patient Status: [Full code] Diet: [Renal] Pending Orders: [] Pending Results/Labs:[] Pending MD notification:[] Latest Vital Signs: Temperature 97.9 , Pulse 80 , B/P 146 /89 , Respiratory Rate 20 , O2 SAT 92 , Nasal Cannula, O2 Flow Rate 3.0 . Vital Sign Comment: [] EKG Rhythm: Sinus Rhythm w/BBB Rhythm change?: N MD Notified?: N - MD Response: Latest Ryan Fall Score: 60 Fall Risk: High Risk Safety Measures: Call light Within Reach, Bed Alarm Zone 1, Side Rails Side Rails x2, Bed position Low and Locked. Fall Precautions: Yellow Socks Yellow Gown Patient Fall Education Report given to [BELKIS Alston].
--- NOTE | 2020-03-15 07:29 | NUR ---
NURSE NOTES: Report received from Fransisca TAMAYO. Patient seen on rounds, awake and eating breakfast, not in distress, on 2lpm via NC. Patient has permacath (Janusz) on right femoral triple lumen for dialysis and meds, catheter is secure and dressed with no signs of bleeding. Pt is continent and uses a urinal. Bed low and locked, siderails up x 2, alarms on 1, call light placed within reach and instructed to call nurse for assistance. Will continue to monitor.
[2020-03-15 07:30] LABS: ALBUMIN 2.6 G/DL (3.4-5.0); ALBUMIN/GLOBULIN RATIO 0.6 (1.0-2.7); BILIRUBIN,TOTAL 0.3 MG/DL (0.2-1.0); CALCIUM 8.9 MG/DL (8.5-10.1); PHOSPHORUS 5.2 MG/DL (2.5-4.9); POTASSIUM 3.9 MMOL/L (3.5-5.1)
--- NOTE | 2020-03-15 07:30 | Consultation ---
DATE OF CONSULTATION: 03/15/2020 ENDOCRINOLOGY CONSULTATION CONSULTING PHYSICIAN: John Taylor MD. REFERRING PHYSICIAN: John Chavez MD. REASON FOR CONSULTATION: Diabetes management. HISTORY OF PRESENT ILLNESS: The patient is a 69-year-old male with past medical history of diabetes, presented to the hospital with pulmonary edema, shortness of breath, and acute kidney injury. The patient has underlying diabetes. Fluid overload did not responded to diuresis, therefore, started on hemodialysis. Also, the patient has been getting IV Solu-Medrol, which raised the glucose significantly. Therefore, Endocrinology consulted in order to assist in the management of diabetes. PAST MEDICAL HISTORY: 1. Diabetes. 2. COPD. 3. Hypertension. PAST SURGICAL HISTORY: Dialysis catheter placement. FAMILY HISTORY: Noncontributory. SOCIAL HISTORY: [facility] resident. No smoking, alcohol, or drug use. MEDICATIONS: Reviewed and reconciled. LABORATORY VALUES: Sodium 131, potassium 4.5, chloride 97, bicarb 27, BUN 80, creatinine 4.2, glucose of 326. TSH of 0.9. Hemoglobin A1c of 7.7. PHYSICAL EXAMINATION: GENERAL: The patient is awake. VITAL SIGNS: Blood pressure 146/89, heart rate of 79, temperature 97.9. HEENT: Pupils are equal and reactive to light. NECK: No JVD. HEART: Regular. LUNGS: Decreased breath sounds. ABDOMEN: Positive bowel sounds. EXTREMITIES: Positive for edema. DIAGNOSES: 1. RULA, now started on hemodialysis. 2. CHF. 3. Diabetes exacerbated by steroids. PLAN: The patient needs to be treated with basal bolus insulin. I will start Levemir 12 units daily as well as NovoLog 6 units before each meal and additional sliding scale. Home hypoglycemia protocol has been ordered. Further adjustment will be done according to the blood glucose values. Thank you Dr. Chavez for the courtesy of this consultation. I will follow along the patient during this stay. John Taylor M.D. DR: BELKIS/SAMEER JOB#: [id number] CC: BASHIR
[2020-03-15 08:00] VITALS: BP 146/78
[2020-03-15] MEDS: Budesonide HHN 0.25mg/2ml ud HHN SCH ×2 (08:44→20:31)
[2020-03-15] MEDS ORDERED: Levemir Flexpen SUBQ SCH (09:00)
[2020-03-15] MEDS: Tamsulosin 0.4mg cap ORAL SCH ×2 (09:08→17:11)
[2020-03-15] MEDS: Citalopram Hydrobromide 10mg Tab ORAL SCH (09:08)
[2020-03-15] MEDS: Docusate 100mg cap ORAL SCH ×3 (09:08→17:11)
[2020-03-15] MEDS: Vitamin B Complex Tab ORAL SCH (09:09)
[2020-03-15] MEDS: Heparin 5000 units/ml inj SUBQ SCH ×2 (09:18→17:14)
--- NOTE | 2020-03-15 10:46 | Pulmonology Progress Note ---
Subjective ROS Limited/Unobtainable: Yes Interval Events: Feeling better; On nasal o2 Constitutional: Reports: no symptoms, other - feels better HEENT: Repors: no symptoms Respiratory: Reports: no symptoms Cardiovascular: Reports: no symptoms Gastrointestinal/Abdominal: Reports: no symptoms Genitourinary: Reports: no symptoms Allergies: Coded Allergies: PENICILLINS (Verified Allergy, Unknown, 03/06/20) Uncoded Allergies: SEAFOOD (Allergy, Unknown, 03/06/20) Objective Last 24 Hour Vital Signs Date Time Temp Pulse Resp B/P (MAP) Pulse Ox O2 Delivery O2 Flow Rate FiO2 03/15/20 09:00 Nasal Cannula 2.0 03/15/20 08:54 95 Nasal Cannula 3.0 32 03/15/20 08:54 79 20 95 Nasal Cannula 3.0 32 77 16 94 03/15/20 08:00 98.1 98 22 146/78 (100) 95 03/15/20 08:00 93 03/15/20 06:03 146/89 03/15/20 04:00 97.9 79 20 146/89 (108) 92 03/15/20 04:00 80 03/15/20 00:00 77 03/15/20 00:00 97.5 76 20 150/73 (98) 92 03/14/20 21:37 152/71 03/14/20 21:32 82 20 96 Nasal Cannula 3.0 32 82 16 88 03/14/20 21:00 Nasal Cannula 3.0 03/14/20 20:00 75 03/14/20 20:00 96.4 76 20 152/71 (98) 92 03/14/20 19:18 89 Nasal Cannula 3.0 32 03/14/20 16:00 82 03/14/20 16:00 97.9 81 20 162/84 (110) 94 03/14/20 13:18 147/73 03/14/20 12:00 83 03/14/20 12:00 97.9 81 20 147/73 (97) 94 Intake and Output 03/14/20 03/15/20 19:00 07:00 Intake Total 425 ml 300 ml Output Total 600 ml 400 ml Balance -175 ml -100 ml Intake Oral 425 ml 300 ml Output Urine Total 600 ml 400 ml # Voids 3 # Bowel Movements 1 1 General Appearance: no acute distress HEENT: normocephalic Respiratory: chest wall non-tender, decreased breath sounds Cardiovascular: normal peripheral pulses, normal rate Abdomen: normal bowel sounds Laboratory Tests 03/14/20 11:44: POC Whole Blood Glucose 298H 03/14/20 16:31: POC Whole Blood Glucose 313H 03/14/20 20:54: POC Whole Blood Glucose 177H 03/15/20 05:41: POC Whole Blood Glucose 236H 03/15/20 05:50: White Blood Count 10.9H, Red Blood Count 4.36L, Hemoglobin 12.0L, Hematocrit 38.2L, Mean Corpuscular Volume 88, Mean Corpuscular Hemoglobin 27.5, Mean Corpuscular Hemoglobin Concent 31.4L, Red Cell Distribution Width 14.3, Platelet Count 269, Mean Platelet Volume 9.5, Neutrophils (%) (Auto) , Lymphocytes (%) (Auto) , Monocytes (%) (Auto) , Eosinophils (%) (Auto) , Basophils (%) (Auto) , Differential Total Cells Counted 100, Neutrophils % (Manual) 95H, Lymphocytes % (Manual) 3L, Monocytes % (Manual) 2, Eosinophils % (Manual) 0, Basophils % (Manual) 0, Band Neutrophils 0, Platelet Estimate Adequate, Platelet Morphology Normal, Red Blood Cell Morphology Normal, Anisocytosis 1+, Sodium Level 137, Potassium Level 3.9, Chloride Level 100, Carbon Dioxide Level 31, Anion Gap 6, Blood Urea Nitrogen 57H, Creatinine 3.0H, Estimat Glomerular Filtration Rate 25.3, Glucose Level 223#H, Calcium Level 8.9, Phosphorus Level 5.2H, Magnesium Level 2.5H, Total Bilirubin 0.3, Aspartate Amino Transf (AST/SGOT) 18, Alanine Aminotransferase (ALT/SGPT) 22, Alkaline Phosphatase 85, C-Reactive Protein, Quantitative 2.7H, Total Protein 7.0, Albumin 2.6L, Globulin 4.4, Albumin/Globulin Ratio 0.6L 03/15/20 07:57: Arterial Blood pH 7.399, Arterial Blood Partial Pressure CO2 44.6, Arterial Blood Partial Pressure O2 78.1, Arterial Blood HCO3 26.9H, Arterial Blood Oxygen Saturation 95.4, Arterial Blood Base Excess 1.8, Oscar Test Positive Current Medications Medications (Trade) Dose Ordered Sig/Melissa Route PRN Reason Start Time Stop Time Status Last Admin Dose Admin Allopurinol (allopurinoL) 300 mg DAILY ORAL 03/09/20 14:30 04/08/20 14:29 03/15/20 09:07 Budesonide (Pulmicort) 0.25 mg EVERY 12 HOURS HHN 03/06/20 21:00 06/04/20 20:59 03/15/20 08:44 Ceftriaxone Sodium 1 gm/ Sodium Chloride 55 ml @ 110 mls/hr Q24H IVPB 03/08/20 17:00 03/15/20 23:59 03/14/20 17:34 Chlorhexidine Gluconate (Cherry-Hex 2%) 1 applic DAILY@2000 TOPIC 03/10/20 21:45 06/08/20 21:44 03/14/20 21:36 Citalopram Hydrobromide (CeleXA) 20 mg DAILY ORAL 03/10/20 09:00 04/09/20 08:59 03/15/20 09:08 Clonidine HCl (Catapres Tab) 0.1 mg Q4H PRN ORAL SBP>170 03/06/20 16:15 06/04/20 16:14 Dextrose (Dextrose 50%) 25 ml Q30M PRN IV Hypoglycemia 03/13/20 16:30 06/11/20 16:29 Dextrose (Dextrose 50%) 50 ml Q30M PRN IV Hypoglycemia 03/13/20 16:30 06/11/20 16:29 Diphenhydramine HCl (Benadryl) 50 mg Q6H PRN ORAL Itching 03/06/20 19:00 04/05/20 18:59 Docusate Sodium (Colace) 100 mg THREE TIMES A DAY ORAL 03/08/20 13:00 04/07/20 12:59 03/15/20 09:08 Guaifenesin/ Dextromethorphan (Robitussin DM Syrup) 10 ml Q4H PRN ORAL For Cough 03/06/20 19:00 06/04/20 18:59 03/12/20 00:51 Heparin Sodium (Porcine) (Heparin 5000 units/ml) 5,000 units BID SUBQ 03/07/20 09:00 04/21/20 08:59 03/15/20 09:18 Hydralazine HCl (Apresoline) 50 mg Q8HR ORAL 03/11/20 14:00 06/04/20 17:59 03/15/20 06:03 Insulin Aspart (NovoLOG) BEFORE MEALS AND HS SUBQ 03/13/20 16:30 06/11/20 16:29 03/15/20 06:04 Insulin Aspart (NovoLOG) 6 units NOVOTIAC SUBQ 03/15/20 06:30 06/13/20 06:29 03/15/20 06:56 Insulin Detemir (Levemir) 12 units DAILY SUBQ 03/15/20 09:00 06/13/20 08:59 03/15/20 09:18 Lorazepam (Ativan) 1 mg Q6H PRN ORAL For Anxiety 03/09/20 23:30 03/16/20 23:29 Methylprednisolone Sodium Succinate (Solu-MEDROL) 40 mg EVERY 6 HOURS IVP 03/11/20 12:00 06/09/20 11:59 03/15/20 06:03 Pantoprazole (Protonix) 40 mg EVERY 12 HOURS ORAL 03/08/20 21:00 04/07/20 20:59 03/15/20 09:08 Phenol/Menthol (Chloraseptic) 1 spray TIDPRN PRN ORAL For Pain 03/06/20 19:00 06/04/20 18:59 Sevelamer Carbonate (Renvela) 1,600 mg THREE TIMES A DAY ORAL 03/09/20 09:00 06/07/20 08:59 03/15/20 09:08 Tamsulosin HCl (Flomax) 0.4 mg BID ORAL 03/08/20 11:30 04/07/20 11:29 03/15/20 09:08 Vitamin B Complex (Vitamin B Complex) 1 tab DAILY ORAL 03/07/20 09:00 06/05/20 08:59 03/15/20 09:09 Assessment/Plan Assessment/Plan IMPRESSION: 1. Improved pulmonary edema 2. Hypertension. 3. Diabetes mellitus. 4. Renal failure. 5. COPD. 6. Negative COVID 19 rapid test DISCUSSION: Continue breathing treatments with albuterol and Atrovent Negative COVID 19 Broad-spectrum antibiotics will be given. I will follow carefully. HD to continue Oxygenation improved Saturating 88% on RA Will place on 2-4L/O2via nasal canulae; saturating 95% on 2-3L.min O2 Jie Rivera Omar Syed MD Mar 15, 2020 10:46
--- NOTE | 2020-03-15 11:52 | Infectious Diseases Prog Note ---
Assessment/Plan Assessment/Plan IMPRESSION: 1. Pneumonia. treated 2. COPD. 3. Pulmonary edema. 4. CHF. 5. Diabetes mellitus. 6. Hypertension. 7. ESRD 8. Anemia. 9. BPH. 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 Pleural effusion RECOMMENDATION: Observe off of antibiotic Subjective ROS Limited/Unobtainable: No Constitutional: Reports: no symptoms Respiratory: Reports: no symptoms Cardiovascular: Reports: no symptoms Gastrointestinal/Abdominal: Reports: no symptoms Genitourinary: Reports: no symptoms Allergies: Coded Allergies: PENICILLINS (Verified Allergy, Unknown, 03/06/20) Uncoded Allergies: SEAFOOD (Allergy, Unknown, 03/06/20) Objective Last 24 Hour Vital Signs Date Time Temp Pulse Resp B/P (MAP) Pulse Ox O2 Delivery O2 Flow Rate FiO2 03/15/20 09:00 Nasal Cannula 2.0 03/15/20 08:54 95 Nasal Cannula 3.0 32 03/15/20 08:54 79 20 95 Nasal Cannula 3.0 32 77 16 94 03/15/20 08:00 98.1 98 22 146/78 (100) 95 03/15/20 08:00 93 03/15/20 06:03 146/89 03/15/20 04:00 97.9 79 20 146/89 (108) 92 03/15/20 04:00 80 03/15/20 00:00 77 03/15/20 00:00 97.5 76 20 150/73 (98) 92 03/14/20 21:37 152/71 03/14/20 21:32 82 20 96 Nasal Cannula 3.0 32 82 16 88 03/14/20 21:00 Nasal Cannula 3.0 03/14/20 20:00 75 03/14/20 20:00 96.4 76 20 152/71 (98) 92 03/14/20 19:18 89 Nasal Cannula 3.0 32 03/14/20 16:00 82 03/14/20 16:00 97.9 81 20 162/84 (110) 94 03/14/20 13:18 147/73 03/14/20 12:00 83 03/14/20 12:00 97.9 81 20 147/73 (97) 94 Height (Feet): 5 Height (Inches): 9.00 Weight (Pounds): 228 General Appearance: no acute distress HEENT: mucous membranes moist Respiratory/Chest: lungs clear, other - oxygen by nasal cannula Cardiovascular: normal rate Abdomen: soft, non tender Extremities: other - edema of legs Neurologic/Psychiatric: alert, responsive Laboratory Tests Test 03/14/20 16:31 03/14/20 20:54 03/15/20 05:41 03/15/20 05:50 POC Whole Blood Glucose 313 MG/DL (74-106) H 177 MG/DL (74-106) H 236 MG/DL (74-106) H White Blood Count 10.9 K/UL (4.8-10.8) H Red Blood Count 4.36 M/UL (4.70-6.10) L Hemoglobin 12.0 G/DL (14.2-18.0) L Hematocrit 38.2 % (42.0-52.0) L Mean Corpuscular Volume 88 FL (80-99) Mean Corpuscular Hemoglobin 27.5 PG (27.0-31.0) Mean Corpuscular Hemoglobin Concent 31.4 G/DL (32.0-36.0) L Red Cell Distribution Width 14.3 % (11.6-14.8) Platelet Count 269 K/UL (150-450) Mean Platelet Volume 9.5 FL (6.5-10.1) Neutrophils (%) (Auto) % (45.0-75.0) Lymphocytes (%) (Auto) % (20.0-45.0) Monocytes (%) (Auto) % (1.0-10.0) Eosinophils (%) (Auto) % (0.0-3.0) Basophils (%) (Auto) % (0.0-2.0) Differential Total Cells Counted 100 Neutrophils % (Manual) 95 % (45-75) H Lymphocytes % (Manual) 3 % (20-45) L Monocytes % (Manual) 2 % (1-10) Eosinophils % (Manual) 0 % (0-3) Basophils % (Manual) 0 % (0-2) Band Neutrophils 0 % (0-8) Platelet Estimate Adequate Platelet Morphology Normal Red Blood Cell Morphology Normal Anisocytosis 1+ Sodium Level 137 MMOL/L (136-145) Potassium Level 3.9 MMOL/L (3.5-5.1) Chloride Level 100 MMOL/L (98-107) Carbon Dioxide Level 31 MMOL/L (21-32) Anion Gap 6 mmol/L (5-15) Blood Urea Nitrogen 57 mg/dL (7-18) H Creatinine 3.0 MG/DL (0.55-1.30) H Estimat Glomerular Filtration Rate 25.3 mL/min (>60) Glucose Level 223 MG/DL (74-106) #H Calcium Level 8.9 MG/DL (8.5-10.1) Phosphorus Level 5.2 MG/DL (2.5-4.9) H Magnesium Level 2.5 MG/DL (1.8-2.4) H Total Bilirubin 0.3 MG/DL (0.2-1.0) Aspartate Amino Transf (AST/SGOT) 18 U/L (15-37) Alanine Aminotransferase (ALT/SGPT) 22 U/L (12-78) Alkaline Phosphatase 85 U/L (46-116) C-Reactive Protein, Quantitative 2.7 mg/dL (0.00-0.90) H Total Protein 7.0 G/DL (6.4-8.2) Albumin 2.6 G/DL (3.4-5.0) L Globulin 4.4 g/dL Albumin/Globulin Ratio 0.6 (1.0-2.7) L Test 03/15/20 07:57 03/15/20 11:37 Arterial Blood pH 7.399 (7.350-7.450) Arterial Blood Partial Pressure CO2 44.6 mmHg (35.0-45.0) Arterial Blood Partial Pressure O2 78.1 mmHg (75.0-100.0) Arterial Blood HCO3 26.9 mmol/L (22.0-26.0) H Arterial Blood Oxygen Saturation 95.4 % (95-100) Arterial Blood Base Excess 1.8 (-2-2) Oscar Test Positive POC Whole Blood Glucose 255 MG/DL (74-106) H Current Medications Medications (Trade) Dose Ordered Sig/Melissa Route PRN Reason Start Time Stop Time Status Last Admin Dose Admin Allopurinol (allopurinoL) 300 mg DAILY ORAL 03/09/20 14:30 04/08/20 14:29 03/15/20 09:07 Budesonide (Pulmicort) 0.25 mg EVERY 12 HOURS HHN 03/06/20 21:00 06/04/20 20:59 03/15/20 08:44 Ceftriaxone Sodium 1 gm/ Sodium Chloride 55 ml @ 110 mls/hr Q24H IVPB 03/08/20 17:00 03/15/20 23:59 03/14/20 17:34 Chlorhexidine Gluconate (Cherry-Hex 2%) 1 applic DAILY@2000 TOPIC 03/10/20 21:45 06/08/20 21:44 03/14/20 21:36 Citalopram Hydrobromide (CeleXA) 20 mg DAILY ORAL 03/10/20 09:00 04/09/20 08:59 03/15/20 09:08 Clonidine HCl (Catapres Tab) 0.1 mg Q4H PRN ORAL SBP>170 03/06/20 16:15 06/04/20 16:14 Dextrose (Dextrose 50%) 25 ml Q30M PRN IV Hypoglycemia 03/13/20 16:30 06/11/20 16:29 Dextrose (Dextrose 50%) 50 ml Q30M PRN IV Hypoglycemia 03/13/20 16:30 06/11/20 16:29 Diphenhydramine HCl (Benadryl) 50 mg Q6H PRN ORAL Itching 03/06/20 19:00 04/05/20 18:59 Docusate Sodium (Colace) 100 mg THREE TIMES A DAY ORAL 03/08/20 13:00 04/07/20 12:59 03/15/20 09:08 Guaifenesin/ Dextromethorphan (Robitussin DM Syrup) 10 ml Q4H PRN ORAL For Cough 03/06/20 19:00 06/04/20 18:59 03/12/20 00:51 Heparin Sodium (Porcine) (Heparin 5000 units/ml) 5,000 units BID SUBQ 03/07/20 09:00 04/21/20 08:59 03/15/20 09:18 Hydralazine HCl (Apresoline) 50 mg Q8HR ORAL 03/11/20 14:00 06/04/20 17:59 03/15/20 06:03 Insulin Aspart (NovoLOG) BEFORE MEALS AND HS SUBQ 03/13/20 16:30 06/11/20 16:29 03/15/20 06:04 Insulin Aspart (NovoLOG) 6 units NOVOTIAC SUBQ 03/15/20 06:30 06/13/20 06:29 03/15/20 06:56 Insulin Detemir (Levemir) 12 units DAILY SUBQ 03/15/20 09:00 06/13/20 08:59 03/15/20 09:18 Lorazepam (Ativan) 1 mg Q6H PRN ORAL For Anxiety 03/15/20 11:47 03/22/20 11:46 Methylprednisolone Sodium Succinate (Solu-MEDROL) 40 mg EVERY 6 HOURS IVP 03/11/20 12:00 06/09/20 11:59 03/15/20 06:03 Pantoprazole (Protonix) 40 mg EVERY 12 HOURS ORAL 03/08/20 21:00 04/07/20 20:59 03/15/20 09:08 Phenol/Menthol (Chloraseptic) 1 spray TIDPRN PRN ORAL For Pain 03/06/20 19:00 06/04/20 18:59 Sevelamer Carbonate (Renvela) 1,600 mg THREE TIMES A DAY ORAL 03/09/20 09:00 06/07/20 08:59 03/15/20 09:08 Tamsulosin HCl (Flomax) 0.4 mg BID ORAL 03/08/20 11:30 04/07/20 11:29 03/15/20 09:08 Vitamin B Complex (Vitamin B Complex) 1 tab DAILY ORAL 03/07/20 09:00 06/05/20 08:59 03/15/20 09:09 Brett Pleitez MD Mar 15, 2020 11:52
[2020-03-15 12:00] VITALS: BP 156/94
--- NOTE | 2020-03-15 12:53 | Nephrology Progress Note ---
Assessment/Plan Problem List: (1) Renal failure (ARF), acute on chronic (2) Hypoxia (3) CHF (congestive heart failure) (4) COPD (chronic obstructive pulmonary disease) (5) HTN (hypertension) (6) Hyperkalemia Assessment Acute renal failure Possible underlying chronic kidney disease Hyperkalemia Respiratory failure: Combination of diastolic CHF, COPD, possible pneumonia Hypertension Diabetes mellitus Negative COVID-19 rapid test Plan March 15: Last HD 03/14. Doing well. continue to monitor renal parameters . Discussed with Dr Caceres. Continue to rest March 14: Dialyzed March 12. Serum creatinine today 4.2. Will do dialysis and ultrafiltration today. Continue per pulmonary. March 13: Dialyzed yesterday. Serum creatinine 3.8 unchanged. Continue per pulmonary. Hemodialysis as needed. Continue to monitor renal parameters. March 12: Due for dialysis today. Discussed with pulmonary, patient due for right pleural effusion tap today. Labs reviewed. Continue per current management. Continue to monitor renal parameters. March 11: Patient was dialyzed 2 days in a row with total of 7 L fluid removal. Today's ABG still suggestive of hypoxia. Patient uncooperative and does not keep the oxygen mask on. Labs reviewed. Renal parameters reasonable. Will attempt dialysis again tomorrow. Will discuss with Dr. Caceres with regard to possible initiation of steroid's, if underlying COPD is a major cause for the current pulmonary state. March 10: Patient was dialyzed yesterday. Over 3 L ultrafiltration done. Patient will be dialyzed again today with ultrafiltration. Continue to monitor pulmonary status. Discussed with . March 09: Seen this morning during hemodialysis. Patient has a femoral catheter for dialysis access. Aim to ultrafiltrate 3 to 4 L. Postdialysis will stop IV Lasix. We will continue to monitor urine output and renal parameters. Phos binders ordered. Per orders. Ultrasound results noted. Previously: Since diuretic treatment is not working, and the patient is volume overloaded and has difficulty breathing with lower extremity edema and possible ascites will aim to dialyze and do ultrafiltration. Adjust blood pressure medication. Kidney ultrasound, results noted Flomax twice daily Adjust the diet. Change to renal Pulmonary toilet Afterload preload reduction Avoid nephrotoxic's Subjective ROS Limited/Unobtainable: No Constitutional: Reports: malaise Objective Objective Last 24 Hour Vital Signs Date Time Temp Pulse Resp B/P (MAP) Pulse Ox O2 Delivery O2 Flow Rate FiO2 11/9/20 12:00 97.7 91 20 156/94 (114) 96 03/15/20 09:00 Nasal Cannula 2.0 03/15/20 08:54 95 Nasal Cannula 3.0 32 03/15/20 08:54 79 20 95 Nasal Cannula 3.0 32 77 16 94 03/15/20 08:00 98.1 98 22 146/78 (100) 95 03/15/20 08:00 93 03/15/20 06:03 146/89 03/15/20 04:00 97.9 79 20 146/89 (108) 92 03/15/20 04:00 80 03/15/20 00:00 77 03/15/20 00:00 97.5 76 20 150/73 (98) 92 03/14/20 21:37 152/71 03/14/20 21:32 82 20 96 Nasal Cannula 3.0 32 82 16 88 03/14/20 21:00 Nasal Cannula 3.0 03/14/20 20:00 75 03/14/20 20:00 96.4 76 20 152/71 (98) 92 03/14/20 19:18 89 Nasal Cannula 3.0 32 03/14/20 16:00 82 03/14/20 16:00 97.9 81 20 162/84 (110) 94 03/14/20 13:18 147/73 Intake and Output 03/14/20 03/15/20 19:00 07:00 Intake Total 425 ml 300 ml Output Total 600 ml 3400 ml Balance -175 ml -3100 ml Intake Oral 425 ml 300 ml Output Urine Total 600 ml 400 ml Hemodialysis UF 3000 ml # Voids 3 # Bowel Movements 1 1 Laboratory Tests 03/14/20 16:31: POC Whole Blood Glucose 313H 03/14/20 20:54: POC Whole Blood Glucose 177H 03/15/20 05:41: POC Whole Blood Glucose 236H 03/15/20 05:50: White Blood Count 10.9H, Red Blood Count 4.36L, Hemoglobin 12.0L, Hematocrit 38.2L, Mean Corpuscular Volume 88, Mean Corpuscular Hemoglobin 27.5, Mean Corpuscular Hemoglobin Concent 31.4L, Red Cell Distribution Width 14.3, Platelet Count 269, Mean Platelet Volume 9.5, Neutrophils (%) (Auto) , Lymphocytes (%) (Auto) , Monocytes (%) (Auto) , Eosinophils (%) (Auto) , Basophils (%) (Auto) , Differential Total Cells Counted 100, Neutrophils % (Manual) 95H, Lymphocytes % (Manual) 3L, Monocytes % (Manual) 2, Eosinophils % (Manual) 0, Basophils % (Manual) 0, Band Neutrophils 0, Platelet Estimate Adequate, Platelet Morphology Normal, Red Blood Cell Morphology Normal, Anisocytosis 1+, Sodium Level 137, Potassium Level 3.9, Chloride Level 100, Carbon Dioxide Level 31, Anion Gap 6, Blood Urea Nitrogen 57H, Creatinine 3.0H, Estimat Glomerular Filtration Rate 25.3, Glucose Level 223#H, Calcium Level 8.9, Phosphorus Level 5.2H, Magnesium Level 2.5H, Total Bilirubin 0.3, Aspartate Amino Transf (AST/SGOT) 18, Alanine Aminotransferase (ALT/SGPT) 22, Alkaline Phosphatase 85, C-Reactive Protein, Quantitative 2.7H, Total Protein 7.0, Albumin 2.6L, Globulin 4.4, Albumin/Globulin Ratio 0.6L 03/15/20 07:57: Arterial Blood pH 7.399, Arterial Blood Partial Pressure CO2 44.6, Arterial Blood Partial Pressure O2 78.1, Arterial Blood HCO3 26.9H, Arterial Blood Oxygen Saturation 95.4, Arterial Blood Base Excess 1.8, Oscar Test Positive 03/15/20 11:37: POC Whole Blood Glucose 255H Height (Feet): 5 Height (Inches): 9.00 Weight (Pounds): 228 General Appearance: no apparent distress EENT: other - on O2 by cannula Cardiovascular: tachycardia Respiratory/Chest: decreased breath sounds Abdomen: soft Rene Singh MD Mar 15, 2020 12:53
--- NOTE | 2020-03-15 14:13 | Diagnostic Imaging Report ---
Indication: Shortness of breath Technique: One view of the chest Comparison: 03/12/2020 Findings: There is increased pleural fluid on the right. Interstitial and airspace edema persists, still extensive but appears somewhat improved on the left. The heart is borderline enlarged. Impression: Increasing right-sided pleural effusion Persistent but slightly improved interstitial and airspace edema
--- NOTE | 2020-03-15 14:18 | Cardiac Electrophysiology PN ---
Assessment/Plan Assessment/Plan 1. Severe bilateral lower extremity edema with shortness of breath and BNP of almost 4000. EF 60%. Due to CHF due to diastolic dysfunction renal failure as well as COPD. Now on HD. 2. Hypertension. On HD , hydralazine 50 mg tid and p.r.n. clonidine. 3. Renal failure, creatinine was 3.9 that increased to >4 with BUN 80[address] DW Dr. Singh. Started on HD 4. COPD. DW RN Subjective Subjective No CP. Still SOB depite HD. ECG SR with RBBB, LAFB Got RFV Janusz and had HD 4 liters on 03/09 and 3 liters on 03/10 Had HD yesterday. On Nasal Cannula. Objective Last 24 Hour Vital Signs Date Time Temp Pulse Resp B/P (MAP) Pulse Ox O2 Delivery O2 Flow Rate FiO2 03/15/20 12:00 97.7 91 20 156/94 (114) 96 03/15/20 12:00 81 03/15/20 09:00 Nasal Cannula 2.0 03/15/20 08:54 95 Nasal Cannula 3.0 32 03/15/20 08:54 79 20 95 Nasal Cannula 3.0 32 77 16 94 03/15/20 08:00 98.1 98 22 146/78 (100) 95 03/15/20 08:00 93 03/15/20 06:03 146/89 03/15/20 04:00 97.9 79 20 146/89 (108) 92 03/15/20 04:00 80 03/15/20 00:00 77 03/15/20 00:00 97.5 76 20 150/73 (98) 92 03/14/20 21:37 152/71 03/14/20 21:32 82 20 96 Nasal Cannula 3.0 32 82 16 88 03/14/20 21:00 Nasal Cannula 3.0 03/14/20 20:00 75 03/14/20 20:00 96.4 76 20 152/71 (98) 92 03/14/20 19:18 89 Nasal Cannula 3.0 32 03/14/20 16:00 82 03/14/20 16:00 97.9 81 20 162/84 (110) 94 Intake and Output 03/14/20 03/15/20 19:00 07:00 Intake Total 425 ml 300 ml Output Total 600 ml 3400 ml Balance -175 ml -3100 ml Intake Oral 425 ml 300 ml Output Urine Total 600 ml 400 ml Hemodialysis UF 3000 ml # Voids 3 # Bowel Movements 1 1 Laboratory Tests Test 03/14/20 16:31 03/14/20 20:54 03/15/20 05:41 03/15/20 05:50 POC Whole Blood Glucose 313 MG/DL (74-106) H 177 MG/DL (74-106) H 236 MG/DL (74-106) H White Blood Count 10.9 K/UL (4.8-10.8) H Red Blood Count 4.36 M/UL (4.70-6.10) L Hemoglobin 12.0 G/DL (14.2-18.0) L Hematocrit 38.2 % (42.0-52.0) L Mean Corpuscular Volume 88 FL (80-99) Mean Corpuscular Hemoglobin 27.5 PG (27.0-31.0) Mean Corpuscular Hemoglobin Concent 31.4 G/DL (32.0-36.0) L Red Cell Distribution Width 14.3 % (11.6-14.8) Platelet Count 269 K/UL (150-450) Mean Platelet Volume 9.5 FL (6.5-10.1) Neutrophils (%) (Auto) % (45.0-75.0) Lymphocytes (%) (Auto) % (20.0-45.0) Monocytes (%) (Auto) % (1.0-10.0) Eosinophils (%) (Auto) % (0.0-3.0) Basophils (%) (Auto) % (0.0-2.0) Differential Total Cells Counted 100 Neutrophils % (Manual) 95 % (45-75) H Lymphocytes % (Manual) 3 % (20-45) L Monocytes % (Manual) 2 % (1-10) Eosinophils % (Manual) 0 % (0-3) Basophils % (Manual) 0 % (0-2) Band Neutrophils 0 % (0-8) Platelet Estimate Adequate Platelet Morphology Normal Red Blood Cell Morphology Normal Anisocytosis 1+ Sodium Level 137 MMOL/L (136-145) Potassium Level 3.9 MMOL/L (3.5-5.1) Chloride Level 100 MMOL/L (98-107) Carbon Dioxide Level 31 MMOL/L (21-32) Anion Gap 6 mmol/L (5-15) Blood Urea Nitrogen 57 mg/dL (7-18) H Creatinine 3.0 MG/DL (0.55-1.30) H Estimat Glomerular Filtration Rate 25.3 mL/min (>60) Glucose Level 223 MG/DL (74-106) #H Calcium Level 8.9 MG/DL (8.5-10.1) Phosphorus Level 5.2 MG/DL (2.5-4.9) H Magnesium Level 2.5 MG/DL (1.8-2.4) H Total Bilirubin 0.3 MG/DL (0.2-1.0) Aspartate Amino Transf (AST/SGOT) 18 U/L (15-37) Alanine Aminotransferase (ALT/SGPT) 22 U/L (12-78) Alkaline Phosphatase 85 U/L (46-116) C-Reactive Protein, Quantitative 2.7 mg/dL (0.00-0.90) H Total Protein 7.0 G/DL (6.4-8.2) Albumin 2.6 G/DL (3.4-5.0) L Globulin 4.4 g/dL Albumin/Globulin Ratio 0.6 (1.0-2.7) L Test 03/15/20 07:57 03/15/20 11:37 Arterial Blood pH 7.399 (7.350-7.450) Arterial Blood Partial Pressure CO2 44.6 mmHg (35.0-45.0) Arterial Blood Partial Pressure O2 78.1 mmHg (75.0-100.0) Arterial Blood HCO3 26.9 mmol/L (22.0-26.0) H Arterial Blood Oxygen Saturation 95.4 % (95-100) Arterial Blood Base Excess 1.8 (-2-2) Oscar Test Positive POC Whole Blood Glucose 255 MG/DL (74-106) H Objective HEAD AND NECK: Positive JVD. LUNGS: Decreased breath sounds. CARDIOVASCULAR: Regular S1 and S2 with no gallop. ABDOMEN: Soft. EXTREMITIES: 2+ pitting edema in lower extremities as well as 2+ pitting edema in right arm. RFV Ponce Wesley MD Mar 15, 2020 14:18
[2020-03-15 16:00] VITALS: BP 151/87
[2020-03-15] MEDS: cefTRIAXone 1 GM in NS 55 ML IVPB SCH (16:58)
--- NOTE | 2020-03-15 19:35 | NUR ---
NURSE HAND-OFF REPORT: Important Events on Shift: Janusz cath dressing changed, no adverse events noted Patient Status: Stable Diet: Renal Pending Orders: N Pending Results/Labs:N Pending MD notification:N Latest Vital Signs: Temperature 97.5 , Pulse 78 , B/P 151 /87 , Respiratory Rate 22 , O2 SAT 94 , Nasal Cannula, O2 Flow Rate 2.0 . Vital Sign Comment: EKG Rhythm: Sinus Rhythm w/BBB Rhythm change?: N MD Notified?: N - MD Response: Latest Ryan Fall Score: 60 Fall Risk: High Risk Safety Measures: Call light Within Reach, Bed Alarm Zone 1, Side Rails Side Rails x2, Bed position Low and Locked. Fall Precautions: Yellow Socks Yellow Gown Patient Fall Education Report given to Fransisca TAMAYO.
[2020-03-15 20:00] VITALS: BP 150/57
--- NOTE | 2020-03-15 20:11 | NUR ---
NURSE NOTES: Received patient from BELKIS Alston. Patient is AO x3 awake and able to make needs known. Patient shows no signs of distress or pain at the time. Janusz catheter is intact and patent. Dressing was changed form [employer] today. There are no signs of bleeding. Patient is on 2L nasal canula and shows no signs of respiratory distress at the time. Patient has been instructed to call before getting up. Bed is in the lowest position, call light is within reach, side rails up x3, and bed alarm on. Will continue to monitor.
--- NOTE | 2020-03-15 20:54 | General Progress Note ---
Subjective ROS Limited/Unobtainable: Yes Allergies: Coded Allergies: PENICILLINS (Verified Allergy, Unknown, 03/06/20) Uncoded Allergies: SEAFOOD (Allergy, Unknown, 03/06/20) Objective Last 24 Hour Vital Signs Date Time Temp Pulse Resp B/P (MAP) Pulse Ox O2 Delivery O2 Flow Rate FiO2 03/15/20 16:00 78 03/15/20 16:00 97.5 96 22 151/87 (108) 94 03/15/20 14:35 156/94 03/15/20 12:00 97.7 91 20 156/94 (114) 96 03/15/20 12:00 81 03/15/20 09:00 Nasal Cannula 2.0 03/15/20 08:54 95 Nasal Cannula 3.0 32 03/15/20 08:54 79 20 95 Nasal Cannula 3.0 32 77 16 94 03/15/20 08:00 98.1 98 22 146/78 (100) 95 03/15/20 08:00 93 03/15/20 06:03 146/89 03/15/20 04:00 97.9 79 20 146/89 (108) 92 03/15/20 04:00 80 03/15/20 00:00 77 03/15/20 00:00 97.5 76 20 150/73 (98) 92 03/14/20 21:37 152/71 03/14/20 21:32 82 20 96 Nasal Cannula 3.0 32 82 16 88 03/14/20 21:00 Nasal Cannula 3.0 Intake and Output 03/14/20 03/15/20 19:00 07:00 Intake Total 425 ml 300 ml Output Total 600 ml 3400 ml Balance -175 ml -3100 ml Intake Oral 425 ml 300 ml Output Urine Total 600 ml 400 ml Hemodialysis UF 3000 ml # Voids 3 # Bowel Movements 1 1 Laboratory Tests 03/14/20 20:54: POC Whole Blood Glucose 177H 03/15/20 05:41: POC Whole Blood Glucose 236H 03/15/20 05:50: White Blood Count 10.9H, Red Blood Count 4.36L, Hemoglobin 12.0L, Hematocrit 38.2L, Mean Corpuscular Volume 88, Mean Corpuscular Hemoglobin 27.5, Mean Corpuscular Hemoglobin Concent 31.4L, Red Cell Distribution Width 14.3, Platelet Count 269, Mean Platelet Volume 9.5, Neutrophils (%) (Auto) , Lymphocytes (%) (Auto) , Monocytes (%) (Auto) , Eosinophils (%) (Auto) , Basophils (%) (Auto) , Differential Total Cells Counted 100, Neutrophils % (Manual) 95H, Lymphocytes % (Manual) 3L, Monocytes % (Manual) 2, Eosinophils % (Manual) 0, Basophils % (Manual) 0, Band Neutrophils 0, Platelet Estimate Adequate, Platelet Morphology Normal, Red Blood Cell Morphology Normal, Anisocytosis 1+, Sodium Level 137, Potassium Level 3.9, Chloride Level 100, Carbon Dioxide Level 31, Anion Gap 6, Blood Urea Nitrogen 57H, Creatinine 3.0H, Estimat Glomerular Filtration Rate 25.3, Glucose Level 223#H, Calcium Level 8.9, Phosphorus Level 5.2H, Magnesium Level 2.5H, Total Bilirubin 0.3, Aspartate Amino Transf (AST/SGOT) 18, Alanine Aminotransferase (ALT/SGPT) 22, Alkaline Phosphatase 85, C-Reactive Protein, Quantitative 2.7H, Total Protein 7.0, Albumin 2.6L, Globulin 4.4, Albumin/Globulin Ratio 0.6L 03/15/20 07:57: Arterial Blood pH 7.399, Arterial Blood Partial Pressure CO2 44.6, Arterial Blood Partial Pressure O2 78.1, Arterial Blood HCO3 26.9H, Arterial Blood Oxygen Saturation 95.4, Arterial Blood Base Excess 1.8, Oscar Test Positive 03/15/20 11:37: POC Whole Blood Glucose 255H 03/15/20 16:35: POC Whole Blood Glucose 123H Height (Feet): 5 Height (Inches): 9.00 Weight (Pounds): 228 Assessment/Plan Problem List: (1) COPD (chronic obstructive pulmonary disease) ICD Codes: J44.9 - Chronic obstructive pulmonary disease, unspecified SNOMED: 14310003 Qualifiers: Qualified Codes: J44.1 - Chronic obstructive pulmonary disease with (acute) exacerbation (2) CHF (congestive heart failure) ICD Codes: I50.9 - Heart failure, unspecified SNOMED: 59350875 Qualifiers: Qualified Codes: I50.9 - Heart failure, unspecified (3) Hypoxia ICD Codes: R09.02 - Hypoxemia SNOMED: 168261621 (4) Renal failure (ARF), acute on chronic ICD Codes: N17.9 - Acute kidney failure, unspecified; N18.9 - Chronic kidney disease, unspecified SNOMED: 452969153 Qualifiers: Qualified Codes: N17.9 - Acute kidney failure, unspecified; N18.4 - Chronic kidney disease, stage 4 (severe) Status: progressing, deteriorating Assessment/Plan: no acute evetns decrease in oxygen requirement copd exac is improving chf is improving azotmeia is stable John Chavez MD Mar 15, 2020 20:54
[2020-03-15] MEDS: Dyna-Hex 2% Top Sol 2oz TOPIC SCH (21:51)
[2020-03-16] VITALS: BP 160/84
[2020-03-16 04:00] VITALS: BP 161/79
[2020-03-16] MEDS: HydrALAZINE 50mg tab ORAL SCH ×3 (06:17→21:50)
[2020-03-16] MEDS: Solu-MEDROL 40mg Inj IVP SCH ×3 (06:17→18:50)
[2020-03-16] MEDS: NovoLOG Insulin Flexpen SUBQ SCH ×9 (06:18→21:00)
--- NOTE | 2020-03-16 06:27 | General Progress Note ---
Subjective Allergies: Coded Allergies: PENICILLINS (Verified Allergy, Unknown, 03/06/20) Uncoded Allergies: SEAFOOD (Allergy, Unknown, 03/06/20) All Systems: reviewed and negative except above Subjective events noted fasting glucose is elevated Item Value Date Time Bedside Blood Glucose 276 mg/dl H 03/16/20 0619 Bedside Blood Glucose 240 mg/dl H 03/15/20 2154 Bedside Blood Glucose 123 mg/dl H 03/15/20 1656 Bedside Blood Glucose 255 mg/dl H 03/15/20 1159 Bedside Blood Glucose 236 mg/dl H 03/15/20 0918 Bedside Blood Glucose 236 mg/dl H 03/15/20 0656 Objective Last 24 Hour Vital Signs Date Time Temp Pulse Resp B/P (MAP) Pulse Ox O2 Delivery O2 Flow Rate FiO2 03/16/20 06:17 161/79 03/16/20 04:00 97.9 77 20 161/79 (106) 97 03/16/20 04:00 93 03/16/20 00:00 74 03/16/20 00:00 98.1 73 20 160/84 (109) 92 03/15/20 21:52 150/57 03/15/20 21:00 Nasal Cannula 2.0 03/15/20 20:31 96 Nasal Cannula 3.0 32 03/15/20 20:31 76 18 98 Nasal Cannula 3.0 32 75 18 96 03/15/20 20:00 80 03/15/20 20:00 97.9 79 19 150/57 (88) 92 03/15/20 16:00 78 03/15/20 16:00 97.5 96 22 151/87 (108) 94 03/15/20 14:35 156/94 03/15/20 12:00 97.7 91 20 156/94 (114) 96 03/15/20 12:00 81 03/15/20 09:00 Nasal Cannula 2.0 03/15/20 08:54 95 Nasal Cannula 3.0 32 03/15/20 08:54 79 20 95 Nasal Cannula 3.0 32 77 16 94 03/15/20 08:00 98.1 98 22 146/78 (100) 95 03/15/20 08:00 93 Intake and Output 03/15/20 03/16/20 19:00 07:00 Intake Total 360 ml 480 ml Output Total 100 ml Balance 260 ml 480 ml Intake Oral 360 ml 480 ml Output Urine Total 100 ml # Voids 4 # Bowel Movements 1 1 Laboratory Tests 03/15/20 07:57: Arterial Blood pH 7.399, Arterial Blood Partial Pressure CO2 44.6, Arterial Blood Partial Pressure O2 78.1, Arterial Blood HCO3 26.9H, Arterial Blood Oxygen Saturation 95.4, Arterial Blood Base Excess 1.8, Oscar Test Positive 03/15/20 11:37: POC Whole Blood Glucose 255H 03/15/20 16:35: POC Whole Blood Glucose 123H 03/15/20 21:14: POC Whole Blood Glucose 240H 03/16/20 05:50: POC Whole Blood Glucose 276H Height (Feet): 5 Height (Inches): 9.00 Weight (Pounds): 228 General Appearance: no apparent distress Neck: normal alignment Cardiovascular: normal rate Respiratory/Chest: decreased breath sounds Abdomen: normal bowel sounds Objective Current Medications Medications (Trade) Dose Ordered Sig/Melissa Route PRN Reason Start Time Stop Time Status Last Admin Dose Admin Allopurinol (allopurinoL) 300 mg DAILY ORAL 03/09/20 14:30 04/08/20 14:29 03/15/20 09:07 Budesonide (Pulmicort) 0.25 mg EVERY 12 HOURS HHN 03/06/20 21:00 06/04/20 20:59 03/15/20 20:31 Chlorhexidine Gluconate (Cherry-Hex 2%) 1 applic DAILY@1999 TOPIC 03/10/20 21:45 06/08/20 21:44 03/15/20 21:51 Citalopram Hydrobromide (CeleXA) 20 mg DAILY ORAL 03/10/20 09:00 04/09/20 08:59 03/15/20 09:08 Clonidine HCl (Catapres Tab) 0.1 mg Q4H PRN ORAL SBP>170 03/06/20 16:15 06/04/20 16:14 Dextrose (Dextrose 50%) 25 ml Q30M PRN IV Hypoglycemia 03/13/20 16:30 06/11/20 16:29 Dextrose (Dextrose 50%) 50 ml Q30M PRN IV Hypoglycemia 03/13/20 16:30 06/11/20 16:29 Diphenhydramine HCl (Benadryl) 50 mg Q6H PRN ORAL Itching 03/06/20 19:00 04/05/20 18:59 Docusate Sodium (Colace) 100 mg THREE TIMES A DAY ORAL 03/08/20 13:00 04/07/20 12:59 03/15/20 17:11 Guaifenesin/ Dextromethorphan (Robitussin DM Syrup) 10 ml Q4H PRN ORAL For Cough 03/06/20 19:00 06/04/20 18:59 03/12/20 00:51 Heparin Sodium (Porcine) (Heparin 5000 units/ml) 5,000 units BID SUBQ 03/07/20 09:00 04/21/20 08:59 03/15/20 17:14 Hydralazine HCl (Apresoline) 50 mg Q8HR ORAL 03/11/20 14:00 06/04/20 17:59 03/16/20 06:17 Insulin Aspart (NovoLOG) BEFORE MEALS AND HS SUBQ 03/13/20 16:30 06/11/20 16:29 03/16/20 06:18 Insulin Aspart (NovoLOG) 6 units NOVOTIAC SUBQ 03/15/20 06:30 06/13/20 06:29 03/16/20 06:19 Insulin Detemir (Levemir) 12 units DAILY SUBQ 03/15/20 09:00 06/13/20 08:59 03/15/20 09:18 Lorazepam (Ativan) 1 mg Q6H PRN ORAL For Anxiety 03/15/20 11:47 03/22/20 11:46 Methylprednisolone Sodium Succinate (Solu-MEDROL) 40 mg EVERY 6 HOURS IVP 03/11/20 12:00 06/09/20 11:59 03/16/20 06:17 Pantoprazole (Protonix) 40 mg EVERY 12 HOURS ORAL 03/08/20 21:00 04/07/20 20:59 03/15/20 21:52 Phenol/Menthol (Chloraseptic) 1 spray TIDPRN PRN ORAL For Pain 03/06/20 19:00 06/04/20 18:59 Sevelamer Carbonate (Renvela) 1,600 mg THREE TIMES A DAY ORAL 03/09/20 09:00 06/07/20 08:59 03/15/20 17:12 Tamsulosin HCl (Flomax) 0.4 mg BID ORAL 03/08/20 11:30 04/07/20 11:29 03/15/20 17:11 Vitamin B Complex (Vitamin B Complex) 1 tab DAILY ORAL 03/07/20 09:00 06/05/20 08:59 03/15/20 09:09 Assessment/Plan Problem List: (1) Hyperglycemia ICD Codes: R73.9 - Hyperglycemia, unspecified SNOMED: 41492645 (2) COPD (chronic obstructive pulmonary disease) ICD Codes: J44.9 - Chronic obstructive pulmonary disease, unspecified SNOMED: 93940592 Qualifiers: Qualified Codes: J44.1 - Chronic obstructive pulmonary disease with (acute) exacerbation (3) CHF (congestive heart failure) ICD Codes: I50.9 - Heart failure, unspecified SNOMED: 64338457 Qualifiers: Qualified Codes: I50.9 - Heart failure, unspecified (4) Hypoxia ICD Codes: R09.02 - Hypoxemia SNOMED: 133401608 (5) Renal failure (ARF), acute on chronic ICD Codes: N17.9 - Acute kidney failure, unspecified; N18.9 - Chronic kidney disease, unspecified SNOMED: 294869288 Qualifiers: Qualified Codes: N17.9 - Acute kidney failure, unspecified; N18.4 - Chronic kidney disease, stage 4 (severe) (6) HTN (hypertension) ICD Codes: I10 - Essential (primary) hypertension SNOMED: 71924420 Status: progressing, deteriorating Assessment/Plan: increase Levemir to 10 units bid increase Novolog to 8 units ac tid continue Novolog sliding scale ac / hs John Taylor MD Mar 16, 2020 06:27
--- NOTE | 2020-03-16 07:24 | NUR ---
NURSE HAND-OFF REPORT: Important Events on Shift:[] Patient Status: [Full code] Diet: [renal] Pending Orders: [] Pending Results/Labs:[] Pending MD notification:[] Latest Vital Signs: Temperature 97.9 , Pulse 93 , B/P 161 /79 , Respiratory Rate 20 , O2 SAT 97 , Nasal Cannula, O2 Flow Rate 2.0 . Vital Sign Comment: [] EKG Rhythm: Sinus Rhythm Rhythm change?: N MD Notified?: N - MD Response: Latest Ryan Fall Score: 60 Fall Risk: High Risk Safety Measures: Call light Within Reach, Bed Alarm Zone 1, Side Rails Side Rails x2, Bed position Low and Locked. Fall Precautions: Yellow Socks Yellow Gown Patient Fall Education Report given to [BELKIS Martinez].
[2020-03-16 07:54] LABS: ALBUMIN 2.4 G/DL (3.4-5.0); ALBUMIN/GLOBULIN RATIO 0.6 (1.0-2.7); BILIRUBIN,TOTAL 0.3 MG/DL (0.2-1.0); CALCIUM 8.3 MG/DL (8.5-10.1); CREATININE 3.7 MG/DL (0.55-1.30); PHOSPHORUS 5.1 MG/DL (2.5-4.9); POTASSIUM 3.9 MMOL/L (3.5-5.1)
[2020-03-16 08:00] VITALS: BP 138/65
--- NOTE | 2020-03-16 08:36 | NUR ---
NURSE NOTES: pt in bed, educated pt on staying in bed to protect femoral line, he verbalized understanding. Pt keeps taken off satellite project site monitor, put it back on pt. Bed is locked and in lowest position, call light within reach. Will continue to monitor pt.
[2020-03-16] MEDS: Citalopram Hydrobromide 10mg Tab ORAL SCH (09:42)
[2020-03-16] MEDS: Heparin 5000 units/ml inj SUBQ SCH ×2 (09:42→18:43)
[2020-03-16] MEDS: Vitamin B Complex Tab ORAL SCH (09:43)
[2020-03-16] MEDS: Docusate 100mg cap ORAL SCH ×3 (09:44→18:50)
[2020-03-16] MEDS: Tamsulosin 0.4mg cap ORAL SCH ×2 (09:44→18:50)
[2020-03-16] MEDS: Levemir Flexpen SUBQ SCH ×2 (09:48→18:44)
--- NOTE | 2020-03-16 10:58 | Pulmonology Progress Note ---
Subjective ROS Limited/Unobtainable: Yes Interval Events: Feeling better; On nasal o2 Constitutional: Reports: no symptoms HEENT: Repors: no symptoms Respiratory: Reports: no symptoms Cardiovascular: Reports: no symptoms Gastrointestinal/Abdominal: Reports: no symptoms Genitourinary: Reports: no symptoms Allergies: Coded Allergies: PENICILLINS (Verified Allergy, Unknown, 03/06/20) Uncoded Allergies: SEAFOOD (Allergy, Unknown, 03/06/20) All Systems: reviewed and negative except above Objective Last 24 Hour Vital Signs Date Time Temp Pulse Resp B/P (MAP) Pulse Ox O2 Delivery O2 Flow Rate FiO2 03/16/20 06:17 161/79 03/16/20 04:00 97.9 77 20 161/79 (106) 97 03/16/20 04:00 93 03/16/20 00:00 74 03/16/20 00:00 98.1 73 20 160/84 (109) 92 03/15/20 21:52 150/57 03/15/20 21:00 Nasal Cannula 2.0 03/15/20 20:31 96 Nasal Cannula 3.0 32 03/15/20 20:31 76 18 98 Nasal Cannula 3.0 32 75 18 96 03/15/20 20:00 80 03/15/20 20:00 97.9 79 19 150/57 (88) 92 03/15/20 16:00 78 03/15/20 16:00 97.5 96 22 151/87 (108) 94 03/15/20 14:35 156/94 03/15/20 12:00 97.7 91 20 156/94 (114) 96 03/15/20 12:00 81 Intake and Output 03/15/20 03/16/20 19:00 07:00 Intake Total 360 ml 480 ml Output Total 100 ml Balance 260 ml 480 ml Intake Oral 360 ml 480 ml Output Urine Total 100 ml # Voids 4 # Bowel Movements 1 1 General Appearance: no acute distress HEENT: normocephalic Respiratory: chest wall non-tender, decreased breath sounds Cardiovascular: normal peripheral pulses, normal rate Abdomen: normal bowel sounds Laboratory Tests 03/15/20 11:37: POC Whole Blood Glucose 255H 03/15/20 16:35: POC Whole Blood Glucose 123H 03/15/20 21:14: POC Whole Blood Glucose 240H 03/16/20 05:50: POC Whole Blood Glucose 276H 03/16/20 06:16: Sodium Level 135L, Potassium Level 3.9, Chloride Level 100, Carbon Dioxide Level 28, Anion Gap 7, Blood Urea Nitrogen 73H, Creatinine 3.7H, Estimat Glomerular Filtration Rate 19.9, Glucose Level 282H, Calcium Level 8.3L, Phosphorus Level 5.1H, Magnesium Level 2.5H, Total Bilirubin 0.3, Aspartate Amino Transf (AST/SGOT) 19, Alanine Aminotransferase (ALT/SGPT) 28, Alkaline Phosphatase 82, C-Reactive Protein, Quantitative 1.7H, Pro-B-Type Natriuretic Peptide 5665H, Total Protein 6.4, Albumin 2.4L, Globulin 4.0, Albumin/Globulin Ratio 0.6L 03/16/20 10:56: POC Whole Blood Glucose 317H Current Medications Medications (Trade) Dose Ordered Sig/Melissa Route PRN Reason Start Time Stop Time Status Last Admin Dose Admin Allopurinol (allopurinoL) 300 mg DAILY ORAL 03/09/20 14:30 04/08/20 14:29 03/16/20 09:44 Budesonide (Pulmicort) 0.25 mg EVERY 12 HOURS HHN 03/06/20 21:00 06/04/20 20:59 03/15/20 20:31 Chlorhexidine Gluconate (Cherry-Hex 2%) 1 applic DAILY@1999 TOPIC 03/10/20 21:45 06/08/20 21:44 03/15/20 21:51 Citalopram Hydrobromide (CeleXA) 20 mg DAILY ORAL 03/10/20 09:00 04/09/20 08:59 03/16/20 09:42 Clonidine HCl (Catapres Tab) 0.1 mg Q4H PRN ORAL SBP>170 03/06/20 16:15 06/04/20 16:14 Dextrose (Dextrose 50%) 25 ml Q30M PRN IV Hypoglycemia 03/13/20 16:30 06/11/20 16:29 Dextrose (Dextrose 50%) 50 ml Q30M PRN IV Hypoglycemia 03/13/20 16:30 06/11/20 16:29 Diphenhydramine HCl (Benadryl) 50 mg Q6H PRN ORAL Itching 03/06/20 19:00 04/05/20 18:59 Docusate Sodium (Colace) 100 mg THREE TIMES A DAY ORAL 03/08/20 13:00 04/07/20 12:59 03/16/20 09:44 Guaifenesin/ Dextromethorphan (Robitussin DM Syrup) 10 ml Q4H PRN ORAL For Cough 03/06/20 19:00 06/04/20 18:59 03/12/20 00:51 Heparin Sodium (Porcine) (Heparin 5000 units/ml) 5,000 units BID SUBQ 03/07/20 09:00 04/21/20 08:59 03/16/20 09:42 Hydralazine HCl (Apresoline) 50 mg Q8HR ORAL 03/11/20 14:00 06/04/20 17:59 03/16/20 06:17 Insulin Aspart (NovoLOG) BEFORE MEALS AND HS SUBQ 03/13/20 16:30 06/11/20 16:29 03/16/20 06:18 Insulin Aspart (NovoLOG) 8 units NOVOTIAC SUBQ 03/16/20 11:50 06/13/20 06:29 Insulin Detemir (Levemir) 10 units BID SUBQ 03/16/20 09:00 06/13/20 08:59 03/16/20 09:48 Lorazepam (Ativan) 1 mg Q6H PRN ORAL For Anxiety 03/15/20 11:47 03/22/20 11:46 Methylprednisolone Sodium Succinate (Solu-MEDROL) 40 mg EVERY 6 HOURS IVP 03/11/20 12:00 06/09/20 11:59 03/16/20 06:17 Pantoprazole (Protonix) 40 mg EVERY 12 HOURS ORAL 03/08/20 21:00 04/07/20 20:59 03/16/20 09:44 Phenol/Menthol (Chloraseptic) 1 spray TIDPRN PRN ORAL For Pain 03/06/20 19:00 06/04/20 18:59 Sevelamer Carbonate (Renvela) 1,600 mg THREE TIMES A DAY ORAL 03/09/20 09:00 06/07/20 08:59 03/16/20 09:42 Tamsulosin HCl (Flomax) 0.4 mg BID ORAL 03/08/20 11:30 04/07/20 11:29 03/16/20 09:44 Vitamin B Complex (Vitamin B Complex) 1 tab DAILY ORAL 03/07/20 09:00 06/05/20 08:59 03/16/20 09:43 Assessment/Plan Assessment/Plan IMPRESSION: 1. Improved pulmonary edema 2. Hypertension. 3. Diabetes mellitus. 4. Renal failure. 5. COPD. 6. Negative COVID 19 rapid test DISCUSSION: Continue breathing treatments with albuterol and Atrovent Negative COVID 19 Broad-spectrum antibiotics will be given. I will follow carefully. HD per renal Oxygenation improved Saturating 88% on RA Will place on 2-4L/O2via nasal canulae; saturating 95% on 2-3L.min O2 Jie Rivera Omar Syed MD Mar 16, 2020 10:58
[2020-03-16] MEDS: Budesonide HHN 0.25mg/2ml ud HHN SCH ×2 (11:08→20:46)
--- NOTE | 2020-03-16 11:26 | Cardiac Electrophysiology PN ---
Assessment/Plan Assessment/Plan 1. Severe bilateral lower extremity edema with shortness of breath and BNP of almost 4000. EF 60%. Due to CHF due to diastolic dysfunction and renal failure on HD. 2. Hypertension. On HD , hydralazine 50 mg tid and p.r.n. clonidine. 3. Renal failure, creatinine was 3.9 that increased to >4 [address] DW Dr. Singh. Started on HD 4. COPD. DW RN Subjective Subjective No CP. ECG SR with RBBB, LAFB Got RFV Janusz and had HD 4 liters on 03/09 and 3 liters on 03/10 On Nasal Cannula. Depending on Labs today may need HD again Objective Last 24 Hour Vital Signs Date Time Temp Pulse Resp B/P (MAP) Pulse Ox O2 Delivery O2 Flow Rate FiO2 03/16/20 06:17 161/79 03/16/20 04:00 97.9 77 20 161/79 (106) 97 03/16/20 04:00 93 03/16/20 00:00 74 03/16/20 00:00 98.1 73 20 160/84 (109) 92 03/15/20 21:52 150/57 03/15/20 21:00 Nasal Cannula 2.0 03/15/20 20:31 96 Nasal Cannula 3.0 32 03/15/20 20:31 76 18 98 Nasal Cannula 3.0 32 75 18 96 03/15/20 20:00 80 03/15/20 20:00 97.9 79 19 150/57 (88) 92 03/15/20 16:00 78 03/15/20 16:00 97.5 96 22 151/87 (108) 94 03/15/20 14:35 156/94 03/15/20 12:00 97.7 91 20 156/94 (114) 96 03/15/20 12:00 81 Intake and Output 03/15/20 03/16/20 19:00 07:00 Intake Total 360 ml 480 ml Output Total 100 ml Balance 260 ml 480 ml Intake Oral 360 ml 480 ml Output Urine Total 100 ml # Voids 4 # Bowel Movements 1 1 Laboratory Tests Test 03/15/20 11:37 03/15/20 16:35 03/15/20 21:14 03/16/20 05:50 POC Whole Blood Glucose 255 MG/DL (74-106) H 123 MG/DL (74-106) H 240 MG/DL (74-106) H 276 MG/DL (74-106) H Test 03/16/20 06:16 03/16/20 10:56 Sodium Level 135 MMOL/L (136-145) L Potassium Level 3.9 MMOL/L (3.5-5.1) Chloride Level 100 MMOL/L (98-107) Carbon Dioxide Level 28 MMOL/L (21-32) Anion Gap 7 mmol/L (5-15) Blood Urea Nitrogen 73 mg/dL (7-18) H Creatinine 3.7 MG/DL (0.55-1.30) H Estimat Glomerular Filtration Rate 19.9 mL/min (>60) Glucose Level 282 MG/DL (74-106) H Calcium Level 8.3 MG/DL (8.5-10.1) L Phosphorus Level 5.1 MG/DL (2.5-4.9) H Magnesium Level 2.5 MG/DL (1.8-2.4) H Total Bilirubin 0.3 MG/DL (0.2-1.0) Aspartate Amino Transf (AST/SGOT) 19 U/L (15-37) Alanine Aminotransferase (ALT/SGPT) 28 U/L (12-78) Alkaline Phosphatase 82 U/L (46-116) C-Reactive Protein, Quantitative 1.7 mg/dL (0.00-0.90) H Pro-B-Type Natriuretic Peptide 5665 pg/mL (0-125) H Total Protein 6.4 G/DL (6.4-8.2) Albumin 2.4 G/DL (3.4-5.0) L Globulin 4.0 g/dL Albumin/Globulin Ratio 0.6 (1.0-2.7) L POC Whole Blood Glucose 317 MG/DL (74-106) H Objective HEAD AND NECK: Positive JVD. LUNGS: Decreased breath sounds. CARDIOVASCULAR: Regular S1 and S2 with no gallop. ABDOMEN: Soft. EXTREMITIES: 2+ pitting edema in lower extremities as well as 2+ pitting edema in right arm. RFV Ponce Wesley MD Mar 16, 2020 11:26
--- NOTE | 2020-03-16 11:27 | Infectious Diseases Prog Note ---
Assessment/Plan Assessment/Plan IMPRESSION: 1. Pneumonia. treated 2. COPD. 3. Pulmonary edema. 4. CHF. 5. Diabetes mellitus. 6. Hypertension. 7. ESRD 8. Anemia. 9. BPH. 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 Pleural effusion RECOMMENDATION: Observe off of antibiotic Subjective ROS Limited/Unobtainable: No Constitutional: Reports: no symptoms Gastrointestinal/Abdominal: Reports: no symptoms Genitourinary: Reports: no symptoms Allergies: Coded Allergies: PENICILLINS (Verified Allergy, Unknown, 03/06/20) Uncoded Allergies: SEAFOOD (Allergy, Unknown, 03/06/20) Objective Last 24 Hour Vital Signs Date Time Temp Pulse Resp B/P (MAP) Pulse Ox O2 Delivery O2 Flow Rate FiO2 03/16/20 06:17 161/79 03/16/20 04:00 97.9 77 20 161/79 (106) 97 03/16/20 04:00 93 03/16/20 00:00 74 03/16/20 00:00 98.1 73 20 160/84 (109) 92 03/15/20 21:52 150/57 03/15/20 21:00 Nasal Cannula 2.0 03/15/20 20:31 96 Nasal Cannula 3.0 32 03/15/20 20:31 76 18 98 Nasal Cannula 3.0 32 75 18 96 03/15/20 20:00 80 03/15/20 20:00 97.9 79 19 150/57 (88) 92 03/15/20 16:00 78 03/15/20 16:00 97.5 96 22 151/87 (108) 94 03/15/20 14:35 156/94 03/15/20 12:00 97.7 91 20 156/94 (114) 96 03/15/20 12:00 81 Height (Feet): 5 Height (Inches): 9.00 Weight (Pounds): 228 General Appearance: no acute distress HEENT: mucous membranes moist Respiratory/Chest: lungs clear, other - oxygen by nasal cannula Abdomen: soft, non tender Extremities: other - decreased edema Neurologic/Psychiatric: alert, oriented x 3, responsive Laboratory Tests Test 03/15/20 11:37 03/15/20 16:35 03/15/20 21:14 03/16/20 05:50 POC Whole Blood Glucose 255 MG/DL (74-106) H 123 MG/DL (74-106) H 240 MG/DL (74-106) H 276 MG/DL (74-106) H Test 03/16/20 06:16 03/16/20 10:56 Sodium Level 135 MMOL/L (136-145) L Potassium Level 3.9 MMOL/L (3.5-5.1) Chloride Level 100 MMOL/L (98-107) Carbon Dioxide Level 28 MMOL/L (21-32) Anion Gap 7 mmol/L (5-15) Blood Urea Nitrogen 73 mg/dL (7-18) H Creatinine 3.7 MG/DL (0.55-1.30) H Estimat Glomerular Filtration Rate 19.9 mL/min (>60) Glucose Level 282 MG/DL (74-106) H Calcium Level 8.3 MG/DL (8.5-10.1) L Phosphorus Level 5.1 MG/DL (2.5-4.9) H Magnesium Level 2.5 MG/DL (1.8-2.4) H Total Bilirubin 0.3 MG/DL (0.2-1.0) Aspartate Amino Transf (AST/SGOT) 19 U/L (15-37) Alanine Aminotransferase (ALT/SGPT) 28 U/L (12-78) Alkaline Phosphatase 82 U/L (46-116) C-Reactive Protein, Quantitative 1.7 mg/dL (0.00-0.90) H Pro-B-Type Natriuretic Peptide 5665 pg/mL (0-125) H Total Protein 6.4 G/DL (6.4-8.2) Albumin 2.4 G/DL (3.4-5.0) L Globulin 4.0 g/dL Albumin/Globulin Ratio 0.6 (1.0-2.7) L POC Whole Blood Glucose 317 MG/DL (74-106) H Current Medications Medications (Trade) Dose Ordered Sig/Melissa Route PRN Reason Start Time Stop Time Status Last Admin Dose Admin Allopurinol (allopurinoL) 300 mg DAILY ORAL 03/09/20 14:30 04/08/20 14:29 03/16/20 09:44 Budesonide (Pulmicort) 0.25 mg EVERY 12 HOURS HHN 03/06/20 21:00 06/04/20 20:59 03/16/20 11:08 Chlorhexidine Gluconate (Cherry-Hex 2%) 1 applic DAILY@2000 TOPIC 03/10/20 21:45 06/08/20 21:44 03/15/20 21:51 Citalopram Hydrobromide (CeleXA) 20 mg DAILY ORAL 03/10/20 09:00 04/09/20 08:59 03/16/20 09:42 Clonidine HCl (Catapres Tab) 0.1 mg Q4H PRN ORAL SBP>170 03/06/20 16:15 06/04/20 16:14 Dextrose (Dextrose 50%) 25 ml Q30M PRN IV Hypoglycemia 03/13/20 16:30 06/11/20 16:29 Dextrose (Dextrose 50%) 50 ml Q30M PRN IV Hypoglycemia 03/13/20 16:30 06/11/20 16:29 Diphenhydramine HCl (Benadryl) 50 mg Q6H PRN ORAL Itching 03/06/20 19:00 04/05/20 18:59 Docusate Sodium (Colace) 100 mg THREE TIMES A DAY ORAL 03/08/20 13:00 04/07/20 12:59 03/16/20 09:44 Guaifenesin/ Dextromethorphan (Robitussin DM Syrup) 10 ml Q4H PRN ORAL For Cough 03/06/20 19:00 06/04/20 18:59 03/12/20 00:51 Heparin Sodium (Porcine) (Heparin 5000 units/ml) 5,000 units BID SUBQ 03/07/20 09:00 04/21/20 08:59 03/16/20 09:42 Hydralazine HCl (Apresoline) 50 mg Q8HR ORAL 03/11/20 14:00 06/04/20 17:59 03/16/20 06:17 Insulin Aspart (NovoLOG) BEFORE MEALS AND HS SUBQ 03/13/20 16:30 06/11/20 16:29 03/16/20 06:18 Insulin Aspart (NovoLOG) 8 units NOVOTIAC SUBQ 03/16/20 11:50 06/13/20 06:29 Insulin Detemir (Levemir) 10 units BID SUBQ 03/16/20 09:00 06/13/20 08:59 03/16/20 09:48 Lorazepam (Ativan) 1 mg Q6H PRN ORAL For Anxiety 03/15/20 11:47 03/22/20 11:46 Methylprednisolone Sodium Succinate (Solu-MEDROL) 40 mg EVERY 6 HOURS IVP 03/11/20 12:00 06/09/20 11:59 03/16/20 06:17 Pantoprazole (Protonix) 40 mg EVERY 12 HOURS ORAL 03/08/20 21:00 04/07/20 20:59 03/16/20 09:44 Phenol/Menthol (Chloraseptic) 1 spray TIDPRN PRN ORAL For Pain 03/06/20 19:00 06/04/20 18:59 Sevelamer Carbonate (Renvela) 1,600 mg THREE TIMES A DAY ORAL 03/09/20 09:00 06/07/20 08:59 03/16/20 09:42 Tamsulosin HCl (Flomax) 0.4 mg BID ORAL 03/08/20 11:30 04/07/20 11:29 03/16/20 09:44 Vitamin B Complex (Vitamin B Complex) 1 tab DAILY ORAL 03/07/20 09:00 06/05/20 08:59 03/16/20 09:43 Brett Pleitez MD Mar 16, 2020 11:27
[2020-03-16 12:00] VITALS: BP 152/75
--- NOTE | 2020-03-16 12:39 | NUR ---
RD ASSESSMENT & RECOMMENDATIONS SEE CARE ACTIVITY FOR COMPLETE ASSESSMENT DAILY ESTIMATED NEEDS: Needs based on Renal dysfunction, to start HD, obesity/ 80.5kg abw 23-28 kcals/kg 4727-7835 total kcals 1.25-1.8 g protein/kg 100-144 g total protein Fluids per MD NUTRITION DIAGNOSIS: Altered nutrition related lab values R/T ARF now on HD, DM as evidenced by elev creat (3.8), elev K (5.7-> wnl), elev Phos (6.1), elev BNP (5072), elev BG (200's) and POC glu ([phone]). CURRENT DIET:Regular -> Renal PO DIET RECOMMENDATIONS: RENAL + CCHO MED ADDITIONAL RECOMMENDATIONS: * Daily standing wt * Monitor for continuity of HD (first HD on 03/08) -> monitor renal fxn and lytes (creat 3.8, phos 5.6) * Check A1C for evaluation of glycemic control Monitor for hyperglycemia while on Solumedrol * F/up w/ sacral WC eval * Monitor for hypoglycemia on insulin regimen
--- NOTE | 2020-03-16 13:59 | Nephrology Progress Note ---
Assessment/Plan Problem List: (1) Renal failure (ARF), acute on chronic (2) Hypoxia (3) CHF (congestive heart failure) (4) COPD (chronic obstructive pulmonary disease) (5) HTN (hypertension) (6) Hyperkalemia Assessment Acute renal failure Possible underlying chronic kidney disease Hyperkalemia Respiratory failure: Combination of diastolic CHF, COPD, possible pneumonia Hypertension Diabetes mellitus Negative COVID-19 rapid test Plan March 16: Last hemodialysis March 14. Clinically doing well. Serum creatinine rising. Today creatinine is 3.7. Will check labs tomorrow if further rise of creatinine will arrange for dialysis and placement of the catheter for the outpatient dialysis due to acute on chronic renal failure. March 15: Last HD 03/14. Doing well. continue to monitor renal parameters . Discussed with Dr Caceres. Continue to rest March 14: Dialyzed March 12. Serum creatinine today 4.2. Will do dialysis and ultrafiltration today. Continue per pulmonary. March 13: Dialyzed yesterday. Serum creatinine 3.8 unchanged. Continue per pulmonary. Hemodialysis as needed. Continue to monitor renal parameters. March 12: Due for dialysis today. Discussed with pulmonary, patient due for right pleural effusion tap today. Labs reviewed. Continue per current management. Continue to monitor renal parameters. March 11: Patient was dialyzed 2 days in a row with total of 7 L fluid removal. Today's ABG still suggestive of hypoxia. Patient uncooperative and does not keep the oxygen mask on. Labs reviewed. Renal parameters reasonable. Will attempt dialysis again tomorrow. Will discuss with Dr. Caceres with regard to possible initiation of steroid's, if underlying COPD is a major cause for the current pulmonary state. March 10: Patient was dialyzed yesterday. Over 3 L ultrafiltration done. P atient will be dialyzed again today with ultrafiltration. Continue to monitor pulmonary status. Discussed with . March 09: Seen this morning during hemodialysis. Patient has a femoral catheter for dialysis access. Aim to ultrafiltrate 3 to 4 L. Postdialysis will stop IV Lasix. We will continue to monitor urine output and renal parameters. Phos binders ordered. Per orders. Ultrasound results noted. Previously: Since diuretic treatment is not working, and the patient is volume overloaded and has difficulty breathing with lower extremity edema and possible ascites will aim to dialyze and do ultrafiltration. Adjust blood pressure medication. Kidney ultrasound, results noted Flomax twice daily Adjust the diet. Change to renal Pulmonary toilet Afterload preload reduction Avoid nephrotoxic's Subjective ROS Limited/Unobtainable: No Constitutional: Reports: malaise Objective Objective Last 24 Hour Vital Signs Date Time Temp Pulse Resp B/P (MAP) Pulse Ox O2 Delivery O2 Flow Rate FiO2 03/16/20 12:00 97.7 80 22 152/75 (100) 94 03/16/20 12:00 76 03/16/20 11:18 81 18 98 Nasal Cannula 3.0 32 78 18 93 03/16/20 09:00 Nasal Cannula 2.0 03/16/20 08:00 97.5 85 20 138/65 (89) 93 03/16/20 07:50 93 Nasal Cannula 3.0 32 03/16/20 06:17 161/79 03/16/20 04:00 97.9 77 20 161/79 (106) 97 03/16/20 04:00 93 03/16/20 00:00 74 03/16/20 00:00 98.1 73 20 160/84 (109) 92 03/15/20 21:52 150/57 03/15/20 21:00 Nasal Cannula 2.0 03/15/20 20:31 96 Nasal Cannula 3.0 32 03/15/20 20:31 76 18 98 Nasal Cannula 3.0 32 75 18 96 03/15/20 20:00 80 03/15/20 20:00 97.9 79 19 150/57 (88) 92 03/15/20 16:00 78 03/15/20 16:00 97.5 96 22 151/87 (108) 94 03/15/20 14:35 156/94 Intake and Output 03/15/20 03/16/20 19:00 07:00 Intake Total 360 ml 480 ml Output Total 100 ml Balance 260 ml 480 ml Intake Oral 360 ml 480 ml Output Urine Total 100 ml # Voids 4 # Bowel Movements 1 1 Laboratory Tests 03/15/20 16:35: POC Whole Blood Glucose 123H 03/15/20 21:14: POC Whole Blood Glucose 240H 03/16/20 05:50: POC Whole Blood Glucose 276H 03/16/20 06:16: Sodium Level 135L, Potassium Level 3.9, Chloride Level 100, Carbon Dioxide Level 28, Anion Gap 7, Blood Urea Nitrogen 73H, Creatinine 3.7H, Estimat Glomerular Filtration Rate 19.9, Glucose Level 282H, Calcium Level 8.3L, Phosphorus Level 5.1H, Magnesium Level 2.5H, Total Bilirubin 0.3, Aspartate Amino Transf (AST/SGOT) 19, Alanine Aminotransferase (ALT/SGPT) 28, Alkaline Phosphatase 82, C-Reactive Protein, Quantitative 1.7H, Pro-B-Type Natriuretic Peptide 5665H, Total Protein 6.4, Albumin 2.4L, Globulin 4.0, Albumin/Globulin Ratio 0.6L 03/16/20 10:56: POC Whole Blood Glucose 317H Height (Feet): 5 Height (Inches): 9.00 Weight (Pounds): 228 General Appearance: no apparent distress EENT: other - Nasal cannula Cardiovascular: normal rate Respiratory/Chest: decreased breath sounds Abdomen: soft Rene Singh MD Mar 16, 2020 13:59
[2020-03-16 16:00] VITALS: BP 145/73
--- NOTE | 2020-03-16 16:58 | General Progress Note ---
Subjective ROS Limited/Unobtainable: Yes Allergies: Coded Allergies: PENICILLINS (Verified Allergy, Unknown, 03/06/20) Uncoded Allergies: SEAFOOD (Allergy, Unknown, 03/06/20) Objective Last 24 Hour Vital Signs Date Time Temp Pulse Resp B/P (MAP) Pulse Ox O2 Delivery O2 Flow Rate FiO2 03/16/20 15:33 146/71 03/16/20 12:00 97.7 80 22 152/75 (100) 94 03/16/20 12:00 76 03/16/20 11:18 81 18 98 Nasal Cannula 3.0 32 78 18 93 03/16/20 09:00 Nasal Cannula 2.0 03/16/20 08:00 97.5 85 20 138/65 (89) 93 03/16/20 07:50 93 Nasal Cannula 3.0 32 03/16/20 06:17 161/79 03/16/20 04:00 97.9 77 20 161/79 (106) 97 03/16/20 04:00 93 03/16/20 00:00 74 03/16/20 00:00 98.1 73 20 160/84 (109) 92 03/15/20 21:52 150/57 03/15/20 21:00 Nasal Cannula 2.0 03/15/20 20:31 96 Nasal Cannula 3.0 32 03/15/20 20:31 76 18 98 Nasal Cannula 3.0 32 75 18 96 03/15/20 20:00 80 03/15/20 20:00 97.9 79 19 150/57 (88) 92 Intake and Output 03/15/20 03/16/20 19:00 07:00 Intake Total 360 ml 480 ml Output Total 100 ml Balance 260 ml 480 ml Intake Oral 360 ml 480 ml Output Urine Total 100 ml # Voids 4 # Bowel Movements 1 1 Laboratory Tests 03/15/20 21:14: POC Whole Blood Glucose 240H 03/16/20 05:50: POC Whole Blood Glucose 276H 03/16/20 06:16: Sodium Level 135L, Potassium Level 3.9, Chloride Level 100, Carbon Dioxide Level 28, Anion Gap 7, Blood Urea Nitrogen 73H, Creatinine 3.7H, Estimat Glomerular Filtration Rate 19.9, Glucose Level 282H, Calcium Level 8.3L, Phosphorus Level 5.1H, Magnesium Level 2.5H, Total Bilirubin 0.3, Aspartate Amino Transf (AST/SGOT) 19, Alanine Aminotransferase (ALT/SGPT) 28, Alkaline Phosphatase 82, C-Reactive Protein, Quantitative 1.7H, Pro-B-Type Natriuretic Peptide 5665H, Total Protein 6.4, Albumin 2.4L, Globulin 4.0, Albumin/Globulin Ratio 0.6L 03/16/20 10:56: POC Whole Blood Glucose 317H 03/16/20 16:06: POC Whole Blood Glucose 162H Height (Feet): 5 Height (Inches): 9.00 Weight (Pounds): 228 Assessment/Plan Problem List: (1) COPD (chronic obstructive pulmonary disease) ICD Codes: J44.9 - Chronic obstructive pulmonary disease, unspecified SNOMED: 47750727 Qualifiers: Qualified Codes: J44.1 - Chronic obstructive pulmonary disease with (acute) exacerbation (2) CHF (congestive heart failure) ICD Codes: I50.9 - Heart failure, unspecified SNOMED: 93529576 Qualifiers: Qualified Codes: I50.9 - Heart failure, unspecified (3) Hypoxia ICD Codes: R09.02 - Hypoxemia SNOMED: 543625024 (4) Renal failure (ARF), acute on chronic ICD Codes: N17.9 - Acute kidney failure, unspecified; N18.9 - Chronic kidney disease, unspecified SNOMED: 572173786 Qualifiers: Qualified Codes: N17.9 - Acute kidney failure, unspecified; N18.4 - Chronic kidney disease, stage 4 (severe) Status: progressing, deteriorating Assessment/Plan: dc planning copd exac is improving chf is improving azotmeia no John Ludwig MD Mar 16, 2020 16:58
--- NOTE | 2020-03-16 19:15 | NUR ---
NURSE NOTES: Received patient from Michelle TAMAYO. Pt is A+Ox3-4 awake and able to make needs known. Pt shows no s/s of distress or discomfort at this time. Janusz catheter is intact and patent. There are no s/s of bleeding. Pt is on 2L nasal canula and shows no s/s of respiratory distress or SOB at this time. Pthas been instructed to call before getting up. Bed is in the lowest position, call light is within reach, side rails up x3, and bed alarm on. Will continue to monitor.
[2020-03-16 20:00] VITALS: BP 162/81
[2020-03-16] MEDS: Dyna-Hex 2% Top Sol 2oz TOPIC SCH (21:50)
--- NOTE | 2020-03-16 22:42 | Psychiatric Progress Note ---
Psychiatry Progress Note Psychiatry Progress Note Subjective the pt is having anxiety compliant no behavioral issues Medications Current Medications Medications (Trade) Dose Ordered Sig/Melissa Route PRN Reason Start Time Stop Time Status Last Admin Dose Admin Allopurinol (allopurinoL) 300 mg DAILY ORAL 03/09/20 14:30 04/08/20 14:29 03/16/20 09:44 Budesonide (Pulmicort) 0.25 mg EVERY 12 HOURS HHN 03/06/20 21:00 06/04/20 20:59 03/16/20 20:46 Chlorhexidine Gluconate (Cherry-Hex 2%) 1 applic DAILY@1999 TOPIC 03/10/20 21:45 06/08/20 21:44 03/16/20 21:50 Citalopram Hydrobromide (CeleXA) 20 mg DAILY ORAL 03/10/20 09:00 04/09/20 08:59 03/16/20 09:42 Clonidine HCl (Catapres Tab) 0.1 mg Q4H PRN ORAL SBP>170 03/06/20 16:15 06/04/20 16:14 Dextrose (Dextrose 50%) 25 ml Q30M PRN IV Hypoglycemia 03/13/20 16:30 06/11/20 16:29 Dextrose (Dextrose 50%) 50 ml Q30M PRN IV Hypoglycemia 03/13/20 16:30 06/11/20 16:29 Diphenhydramine HCl (Benadryl) 50 mg Q6H PRN ORAL Itching 03/06/20 19:00 04/05/20 18:59 Docusate Sodium (Colace) 100 mg THREE TIMES A DAY ORAL 03/08/20 13:00 04/07/20 12:59 03/16/20 18:50 Guaifenesin/ Dextromethorphan (Robitussin DM Syrup) 10 ml Q4H PRN ORAL For Cough 03/06/20 19:00 06/04/20 18:59 03/12/20 00:51 Heparin Sodium (Porcine) (Heparin 5000 units/ml) 5,000 units BID SUBQ 03/07/20 09:00 04/21/20 08:59 03/16/20 18:43 Hydralazine HCl (Apresoline) 50 mg Q8HR ORAL 03/11/20 14:00 06/04/20 17:59 03/16/20 21:50 Insulin Aspart (NovoLOG) BEFORE MEALS AND HS SUBQ 03/13/20 16:30 06/11/20 16:29 03/16/20 21:00 Insulin Aspart (NovoLOG) 8 units NOVOTIAC SUBQ 03/16/20 11:50 06/13/20 06:29 03/16/20 18:49 Insulin Detemir (Levemir) 10 units BID SUBQ 03/16/20 09:00 06/13/20 08:59 03/16/20 18:44 Lorazepam (Ativan) 1 mg Q6H PRN ORAL For Anxiety 03/15/20 11:47 03/22/20 11:46 Methylprednisolone Sodium Succinate (Solu-MEDROL) 40 mg EVERY 6 HOURS IVP 03/11/20 12:00 06/09/20 11:59 03/16/20 18:50 Pantoprazole (Protonix) 40 mg EVERY 12 HOURS ORAL 03/08/20 21:00 04/07/20 20:59 03/16/20 21:51 Phenol/Menthol (Chloraseptic) 1 spray TIDPRN PRN ORAL For Pain 03/06/20 19:00 06/04/20 18:59 Sevelamer Carbonate (Renvela) 1,600 mg THREE TIMES A DAY ORAL 03/09/20 09:00 06/07/20 08:59 03/16/20 18:50 Tamsulosin HCl (Flomax) 0.4 mg BID ORAL 03/08/20 11:30 04/07/20 11:29 03/16/20 18:50 Vitamin B Complex (Vitamin B Complex) 1 tab DAILY ORAL 03/07/20 09:00 06/05/20 08:59 03/16/20 09:43 Neurological/Psychiatric: Reports: anxiety, depressed, emotional problems Allergies: Coded Allergies: PENICILLINS (Verified Allergy, Unknown, 03/06/20) Uncoded Allergies: SEAFOOD (Allergy, Unknown, 03/06/20) Objective Data Height (Feet): 5 Height (Inches): 9.00 Weight (Pounds): 228 General Appearance: no apparent distress Mental Status Exam - Mood: anxious Additional Comments: alert and oriented times self, place, and situation. Mood is anxious. Affect is blunted, congruent with mood. Thought process is linear and goal oriented. Thought content, no suicidal or homicidal ideation. Cognition is intact. Insight and judgment is fair. Assessment/Plan Comptche I: ASSESSMENT: Compt[place] I Anxiety disorder. [place] II Deferred. [place] III As above. [place] IV Low. [place] V 50. PLAN: 1. We will start the patient on Celexa 20 mg in the morning. 2. Ativan as needed. 3. Provide the patient with reality orientation, supportive therapy, and medication. 4. the pt has capacity to make decisions Status: progressing, deteriorating Status Narrative ASSESSMENT: Comptche I Anxiety disorder. Comptche II Deferred. Comptche III As above. Compt[place] IV Low. Comptche V 50. PLAN: 1. We will start the patient on Celexa 20 mg in the morning. 2. Ativan as needed. 3. Provide the patient with reality orientation, supportive therapy, and medication. 4. the pt has capacity to make decisions Assessment/Plan: ASSESSMENT: Comptche I Anxiety disorder. Comptche II Deferred. Comptche III As above. Comptche IV Low. Compt[place] V 50. PLAN: 1. We will start the patient on Celexa 20 mg in the morning. 2. Ativan as needed. 3. Provide the patient with reality orientation, supportive therapy, and medication. 4. the pt has capacity to make decisions Kwasi Diaz MD Mar 16, 2020 22:42
[2020-03-17] VITALS (7 sets, daily range): BP systolic 132–160; BP diastolic 55–96
[2020-03-17] MEDS: Solu-MEDROL 40mg Inj IVP SCH ×5 (00:37→17:32)
--- NOTE | 2020-03-17 06:00 | NUR ---
NURSE NOTES: Pt pulled out right femoral Janusz catheter. Pt in stable condition. VSS BP:159/89 HR:76 R:20 T:97.7 O2:95%. Denies any pain. Denies any n/v, SOB or discomfort. No distress or discomfort noted. No bleeding noted. Pt resting in bed comfortably. Dr. Chavez notified. Awaiting response.
[2020-03-17] MEDS: NovoLOG Insulin Flexpen SUBQ SCH ×7 (06:02→22:25)
[2020-03-17] MEDS: HydrALAZINE 50mg tab ORAL SCH ×3 (06:03→21:42)
--- NOTE | 2020-03-17 06:39 | General Progress Note ---
Subjective Allergies: Coded Allergies: PENICILLINS (Verified Allergy, Unknown, 03/06/20) Uncoded Allergies: SEAFOOD (Allergy, Unknown, 03/06/20) All Systems: reviewed and negative except above Subjective events noted fasting glucose is elevated Item Value Date Time Bedside Blood Glucose 348 mg/dl H 03/17/20 0630 Bedside Blood Glucose 237 mg/dl H 03/16/20 2100 Bedside Blood Glucose 162 mg/dl H 03/16/20 1849 Bedside Blood Glucose 317 mg/dl H 03/16/20 1150 Bedside Blood Glucose 276 mg/dl H 03/16/20 0948 Bedside Blood Glucose 276 mg/dl H 03/16/20 0630 Objective Last 24 Hour Vital Signs Date Time Temp Pulse Resp B/P (MAP) Pulse Ox O2 Delivery O2 Flow Rate FiO2 03/17/20 06:03 160/89 03/17/20 04:00 97.0 76 20 160/94 (116) 95 03/17/20 04:00 70 03/17/20 00:00 97.7 68 20 159/84 (109) 94 03/17/20 00:00 68 03/16/20 21:50 162/81 03/16/20 21:00 Nasal Cannula 2.0 03/16/20 20:47 79 18 97 Nasal Cannula 3.0 32 75 18 94 03/16/20 20:00 97.0 80 20 162/81 (108) 93 03/16/20 19:03 94 Nasal Cannula 3.0 32 03/16/20 17:00 79 03/16/20 16:00 97.0 84 20 145/73 (97) 93 03/16/20 15:33 146/71 03/16/20 12:00 97.7 80 22 152/75 (100) 94 03/16/20 12:00 76 03/16/20 11:18 81 18 98 Nasal Cannula 3.0 32 78 18 93 03/16/20 09:00 Nasal Cannula 2.0 03/16/20 08:00 97.5 85 20 138/65 (89) 93 03/16/20 08:00 81 03/16/20 07:50 93 Nasal Cannula 3.0 32 l Intake and Output 03/16/20 03/17/20 19:00 07:00 Intake Total 360 ml Output Total 300 ml Balance 60 ml Intake Oral 360 ml Output Urine Total 300 ml # Voids 3 # Bowel Movements 1 1 Laboratory Tests 03/16/20 10:56: POC Whole Blood Glucose 317H 03/16/20 16:06: POC Whole Blood Glucose 162H Height (Feet): 5 Height (Inches): 9.00 Weight (Pounds): 228 General Appearance: no apparent distress Neck: normal alignment Cardiovascular: normal rate Objective Current Medications Medications (Trade) Dose Ordered Sig/Melissa Route PRN Reason Start Time Stop Time Status Last Admin Dose Admin Allopurinol (allopurinoL) 300 mg DAILY ORAL 03/09/20 14:30 04/08/20 14:29 03/16/20 09:44 Budesonide (Pulmicort) 0.25 mg EVERY 12 HOURS HHN 03/06/20 21:00 06/04/20 20:59 03/16/20 20:46 Chlorhexidine Gluconate (Cherry-Hex 2%) 1 applic DAILY@1999 TOPIC 03/10/20 21:45 06/08/20 21:44 03/16/20 21:50 Citalopram Hydrobromide (CeleXA) 20 mg DAILY ORAL 03/10/20 09:00 04/09/20 08:59 03/16/20 09:42 Clonidine HCl (Catapres Tab) 0.1 mg Q4H PRN ORAL SBP>170 03/06/20 16:15 06/04/20 16:14 Dextrose (Dextrose 50%) 25 ml Q30M PRN IV Hypoglycemia 03/13/20 16:30 06/11/20 16:29 Dextrose (Dextrose 50%) 50 ml Q30M PRN IV Hypoglycemia 03/13/20 16:30 06/11/20 16:29 Diphenhydramine HCl (Benadryl) 50 mg Q6H PRN ORAL Itching 03/06/20 19:00 04/05/20 18:59 Docusate Sodium (Colace) 100 mg THREE TIMES A DAY ORAL 03/08/20 13:00 04/07/20 12:59 03/16/20 18:50 Guaifenesin/ Dextromethorphan (Robitussin DM Syrup) 10 ml Q4H PRN ORAL For Cough 03/06/20 19:00 06/04/20 18:59 03/12/20 00:51 Heparin Sodium (Porcine) (Heparin 5000 units/ml) 5,000 units BID SUBQ 03/07/20 09:00 04/21/20 08:59 03/16/20 18:43 Hydralazine HCl (Apresoline) 50 mg Q8HR ORAL 03/11/20 14:00 06/04/20 17:59 03/17/20 06:03 Insulin Aspart (NovoLOG) BEFORE MEALS AND HS SUBQ 03/13/20 16:30 06/11/20 16:29 03/17/20 06:02 Insulin Aspart (NovoLOG) 8 units NOVOTIAC SUBQ 03/16/20 11:50 06/13/20 06:29 03/17/20 06:06 Insulin Detemir (Levemir) 10 units BID SUBQ 03/16/20 09:00 06/13/20 08:59 03/16/20 18:44 Lorazepam (Ativan) 1 mg Q6H PRN ORAL For Anxiety 03/15/20 11:47 03/22/20 11:46 Methylprednisolone Sodium Succinate (Solu-MEDROL) 40 mg EVERY 6 HOURS IVP 03/11/20 12:00 06/09/20 11:59 03/17/20 00:37 Pantoprazole (Protonix) 40 mg EVERY 12 HOURS ORAL 03/08/20 21:00 04/07/20 20:59 03/16/20 21:51 Phenol/Menthol (Chloraseptic) 1 spray TIDPRN PRN ORAL For Pain 03/06/20 19:00 06/04/20 18:59 Sevelamer Carbonate (Renvela) 1,600 mg THREE TIMES A DAY ORAL 03/09/20 09:00 06/07/20 08:59 03/16/20 18:50 Tamsulosin HCl (Flomax) 0.4 mg BID ORAL 03/08/20 11:30 04/07/20 11:29 03/16/20 18:50 Vitamin B Complex (Vitamin B Complex) 1 tab DAILY ORAL 03/07/20 09:00 06/05/20 08:59 03/16/20 09:43 Assessment/Plan Problem List: (1) Hyperglycemia ICD Codes: R73.9 - Hyperglycemia, unspecified SNOMED: 31812545 (2) COPD (chronic obstructive pulmonary disease) ICD Codes: J44.9 - Chronic obstructive pulmonary disease, unspecified SNOMED: 86659542 Qualifiers: Qualified Codes: J44.1 - Chronic obstructive pulmonary disease with (acute) exacerbation (3) CHF (congestive heart failure) ICD Codes: I50.9 - Heart failure, unspecified SNOMED: 05185065 Qualifiers: Qualified Codes: I50.9 - Heart failure, unspecified (4) Hypoxia ICD Codes: R09.02 - Hypoxemia SNOMED: 983713712 (5) Renal failure (ARF), acute on chronic ICD Codes: N17.9 - Acute kidney failure, unspecified; N18.9 - Chronic kidney disease, unspecified SNOMED: 112262065 Qualifiers: Qualified Codes: N17.9 - Acute kidney failure, unspecified; N18.4 - Chronic kidney disease, stage 4 (severe) (6) HTN (hypertension) ICD Codes: I10 - Essential (primary) hypertension SNOMED: 84508636 Status: progressing, deteriorating Assessment/Plan: increase Levemir to 16 units bid increase Novolog to 10 units ac tid continue Novolog sliding scale ac / hs John Taylor MD Mar 17, 2020 06:39
--- NOTE | 2020-03-17 07:20 | NUR ---
NURSE HAND-OFF REPORT: Important Events on Shift: Patient Status: STABLE Diet: RENAL Pending Orders: Pending Results/Labs: Pending MD notification: Latest Vital Signs: Temperature 97.0 , Pulse 76 , B/P 160 /89 , Respiratory Rate 20 , O2 SAT 95 , Nasal Cannula, O2 Flow Rate 2.0 . Vital Sign Comment: EKG Rhythm: SR w/ BBB Rhythm change?: N MD Notified?: N - MD Response: Latest Ryan Fall Score: 60 Fall Risk: High Risk Safety Measures: Call light Within Reach, Bed Alarm Zone 1, Side Rails Side Rails x2, Bed position Low and Locked. Fall Precautions: Yellow Socks Yellow Gown Patient Fall Education Report given to JEN TAMAYO.
[2020-03-17 07:35] LABS: HEMOGLOBIN 12.4 G/DL (14.2-18.0); MEAN CORPUSCULAR VOLUME 89 FL (80-99); PLATELET COUNT 246 K/UL (150-450); RED BLOOD COUNT 4.52 M/UL (4.70-6.10); RED CELL DISTRIBUTION WIDTH 14.3 % (11.6-14.8); WHITE BLOOD COUNT 15.8 K/UL (4.8-10.8)
[2020-03-17] MEDS: Budesonide HHN 0.25mg/2ml ud HHN SCH ×2 (07:42→21:29)
[2020-03-17 08:00] LABS: ALBUMIN 2.6 G/DL (3.4-5.0); ALBUMIN/GLOBULIN RATIO 0.6 (1.0-2.7); BILIRUBIN,TOTAL 0.2 MG/DL (0.2-1.0); CALCIUM 8.5 MG/DL (8.5-10.1); CREATININE 4.1 MG/DL (0.55-1.30); PHOSPHORUS 5.2 MG/DL (2.5-4.9); POTASSIUM 4.3 MMOL/L (3.5-5.1)
--- NOTE | 2020-03-17 08:13 | NUR ---
NURSE NOTES: pt awake and just had breakfast. 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 pt pulled out Right femoral aileen cath notified doctor Kathy, he asked doctor Samantha to be notified. Bed is locked and in lowest position, call light within reach. will continue to monitor.
--- NOTE | 2020-03-17 08:54 | Nephrology Progress Note ---
Assessment/Plan Problem List: (1) Renal failure (ARF), acute on chronic (2) Hypoxia (3) CHF (congestive heart failure) (4) COPD (chronic obstructive pulmonary disease) (5) HTN (hypertension) (6) Hyperkalemia Assessment Acute renal failure Possible underlying chronic kidney disease Hyperkalemia Respiratory failure: Combination of diastolic CHF, COPD, possible pneumonia Hypertension Diabetes mellitus Negative COVID-19 rapid test Plan March 17: Labs reviewed. Serum creatinine rising. Patient needs to be continue on dialysis. Regretfully he pulled out his femoral dialysis catheter. Discussed with RN. Patient need to be consented for placement of tunneled dialysis catheter for continued dialysis. If needed, psychiatric clearance regarding if the patient is mentally fit to make decisions. March 16: Last hemodialysis March 14. Clinically doing well. Serum creatinine rising. Today creatinine is 3.7. Will check labs tomorrow if further rise of creatinine will arrange for dialysis and placement of the catheter for the outpatient dialysis due to acute on chronic renal failure. March 15: Last HD 03/14. Doing well. continue to monitor renal parameters . Discussed with Dr Caceres. Continue to rest March 14: Dialyzed March 12. Serum creatinine today 4.2. Will do dialysis and ultrafiltration today. Continue per pulmonary. March 13: Dialyzed yesterday. Serum creatinine 3.8 unchanged. Continue per pulmonary. Hemodialysis as needed. Continue to monitor renal parameters. March 12: Due for dialysis today. Discussed with pulmonary, patient due for right pleural effusion tap today. Labs reviewed. Continue per current management. Continue to monitor renal parameters. March 11: Patient was dialyzed 2 days in a row with total of 7 L fluid removal. Today's ABG still suggestive of hypoxia. Patient uncooperative and does not keep the oxygen mask on. Labs reviewed. Renal parameters reasonable. Will attempt dialysis again tomorrow. Will discuss with Dr. Caceres with regard to possible initiation of steroid's, if underlying COPD is a major cause for the current pulmonary state. March 10: Patient was dialyzed yesterday. Over 3 L ultrafiltration done. Patient will be dialyzed again today with ultrafiltration. Continue to monitor pulmonary status. Discussed with . March 09: Seen this morning during hemodialysis. Patient has a femoral catheter for dialysis access. Aim to ultrafiltrate 3 to 4 L. Postdialysis will stop IV Lasix. We will continue to monitor urine output and renal parameters. Phos binders ordered. Per orders. Ultrasound results noted. Previously: Since diuretic treatment is not working, and the patient is volume overloaded and has difficulty breathing with lower extremity edema and possible ascites will aim to dialyze and do ultrafiltration. Adjust blood pressure medication. Kidney ultrasound, results noted Flomax twice daily Adjust the diet. Change to renal Pulmonary toilet Afterload preload reduction Avoid nephrotoxic's Subjective ROS Limited/Unobtainable: No Constitutional: Reports: malaise, weakness Objective Objective Last 24 Hour Vital Signs Date Time Temp Pulse Resp B/P (MAP) Pulse Ox O2 Delivery O2 Flow Rate FiO2 03/17/20 06:03 160/89 03/17/20 04:00 97.0 76 20 160/94 (116) 95 03/17/20 04:00 70 03/17/20 00:00 97.7 68 20 159/84 (109) 94 03/17/20 00:00 68 03/16/20 21:50 162/81 03/16/20 21:00 Nasal Cannula 2.0 03/16/20 20:47 79 18 97 Nasal Cannula 3.0 32 75 18 94 03/16/20 20:00 97.0 80 20 162/81 (108) 93 03/16/20 19:03 94 Nasal Cannula 3.0 32 03/16/20 17:00 79 03/16/20 16:00 97.0 84 20 145/73 (97) 93 03/16/20 15:33 146/71 03/16/20 12:00 97.7 80 22 152/75 (100) 94 03/16/20 12:00 76 03/16/20 11:18 81 18 98 Nasal Cannula 3.0 32 78 18 93 03/16/20 09:00 Nasal Cannula 2.0 Intake and Output 03/16/20 03/17/20 19:00 07:00 Intake Total 360 ml Output Total 300 ml Balance 60 ml Intake Oral 360 ml Output Urine Total 300 ml # Voids 3 # Bowel Movements 1 1 Current Medications Medications (Trade) Dose Ordered Sig/Melissa Route PRN Reason Start Time Stop Time Status Last Admin Dose Admin Allopurinol (allopurinoL) 300 mg DAILY ORAL 03/09/20 14:30 04/08/20 14:29 03/16/20 09:44 Budesonide (Pulmicort) 0.25 mg EVERY 12 HOURS HHN 03/06/20 21:00 06/04/20 20:59 03/17/20 07:42 Chlorhexidine Gluconate (Cherry-Hex 2%) 1 applic DAILY@2000 TOPIC 03/10/20 21:45 06/08/20 21:44 03/16/20 21:50 Citalopram Hydrobromide (CeleXA) 20 mg DAILY ORAL 03/10/20 09:00 04/09/20 08:59 03/16/20 09:42 Clonidine HCl (Catapres Tab) 0.1 mg Q4H PRN ORAL SBP>170 03/06/20 16:15 06/04/20 16:14 Dextrose (Dextrose 50%) 25 ml Q30M PRN IV Hypoglycemia 03/13/20 16:30 06/11/20 16:29 Dextrose (Dextrose 50%) 50 ml Q30M PRN IV Hypoglycemia 03/13/20 16:30 06/11/20 16:29 Diphenhydramine HCl (Benadryl) 50 mg Q6H PRN ORAL Itching 03/06/20 19:00 04/05/20 18:59 Docusate Sodium (Colace) 100 mg THREE TIMES A DAY ORAL 03/08/20 13:00 04/07/20 12:59 03/16/20 18:50 Guaifenesin/ Dextromethorphan (Robitussin DM Syrup) 10 ml Q4H PRN ORAL For Cough 03/06/20 19:00 06/04/20 18:59 03/12/20 00:51 Heparin Sodium (Porcine) (Heparin 5000 units/ml) 5,000 units BID SUBQ 03/07/20 09:00 04/21/20 08:59 03/16/20 18:43 Hydralazine HCl (Apresoline) 50 mg Q8HR ORAL 03/11/20 14:00 06/04/20 17:59 03/17/20 06:03 Insulin Aspart (NovoLOG) BEFORE MEALS AND HS SUBQ 03/13/20 16:30 06/11/20 16:29 03/17/20 06:02 Insulin Aspart (NovoLOG) 10 units NOVOTIAC SUBQ 03/17/20 11:50 06/13/20 06:29 Insulin Detemir (Levemir) 16 units BID SUBQ 03/17/20 09:00 06/13/20 08:59 Lorazepam (Ativan) 1 mg Q6H PRN ORAL For Anxiety 03/15/20 11:47 03/22/20 11:46 Methylprednisolone Sodium Succinate (Solu-MEDROL) 40 mg EVERY 6 HOURS IVP 03/11/20 12:00 06/09/20 11:59 03/17/20 00:37 Pantoprazole (Protonix) 40 mg EVERY 12 HOURS ORAL 03/08/20 21:00 04/07/20 20:59 03/16/20 21:51 Phenol/Menthol (Chloraseptic) 1 spray TIDPRN PRN ORAL For Pain 03/06/20 19:00 06/04/20 18:59 Sevelamer Carbonate (Renvela) 1,600 mg THREE TIMES A DAY ORAL 03/09/20 09:00 06/07/20 08:59 03/16/20 18:50 Tamsulosin HCl (Flomax) 0.4 mg BID ORAL 03/08/20 11:30 04/07/20 11:29 03/16/20 18:50 Vitamin B Complex (Vitamin B Complex) 1 tab DAILY ORAL 03/07/20 09:00 06/05/20 08:59 03/16/20 09:43 Laboratory Tests 03/16/20 10:56: POC Whole Blood Glucose 317H 03/16/20 16:06: POC Whole Blood Glucose 162H 03/17/20 06:37: White Blood Count 15.8H, Red Blood Count 4.52L, Hemoglobin 12.4L, Hematocrit 40.0L, Mean Corpuscular Volume 89, Mean Corpuscular Hemoglobin 27.5, Mean Corpuscular Hemoglobin Concent 31.0L, Red Cell Distribution Width 14.3, Platelet Count 246, Mean Platelet Volume 9.1, Neutrophils (%) (Auto) , Lymphocytes (%) (Auto) , Monocytes (%) (Auto) , Eosinophils (%) (Auto) , Basophils (%) (Auto) , Neutrophils % (Manual) [Pending], Lymphocytes % (Manual) [Pending], Platelet Estimate [Pending], Platelet Morphology [Pending], Sodium Level 133L, Potassium Level 4.3, Chloride Level 97L, Carbon Dioxide Level 26, Anion Gap 10, Blood Urea Nitrogen 91H, Creatinine 4.1H, Estimat Glomerular Filtration Rate 17.7, Glucose Level 344H, Uric Acid 5.7, Calcium Level 8.5, Phosphorus Level 5.2H, Magnesium Level 2.5H, Total Bilirubin 0.2, Aspartate Amino Transf (AST/SGOT) 23, Alanine A minotransferase (ALT/SGPT) 24, Alkaline Phosphatase 101, C-Reactive Protein, Quantitative 1.0H, Total Protein 6.8, Albumin 2.6L, Globulin 4.2, Albumin/Globulin Ratio 0.6L Height (Feet): 5 Height (Inches): 9.00 Weight (Pounds): 228 General Appearance: mild distress Cardiovascular: normal rate Respiratory/Chest: decreased breath sounds Abdomen: distended Rene Singh MD Mar 17, 2020 08:54
[2020-03-17] MEDS: Vitamin B Complex Tab ORAL SCH (09:00)
[2020-03-17] MEDS ORDERED: Lidocaine 1%/ 10mg/ml/EPI 0.01mg/ml 20ml INJ PRN (09:30)
[2020-03-17] MEDS ORDERED: Heparin1,000 units/500ml Premix(Conc:2 units/ml) INJ PRN (09:30)
--- NOTE | 2020-03-17 09:57 | Pulmonology Progress Note ---
Subjective ROS Limited/Unobtainable: No Interval Events: Feeling better; On nasal o2 Constitutional: Reports: no symptoms HEENT: Repors: no symptoms Respiratory: Reports: no symptoms Cardiovascular: Reports: no symptoms Gastrointestinal/Abdominal: Reports: no symptoms Genitourinary: Reports: no symptoms Allergies: Coded Allergies: PENICILLINS (Verified Allergy, Unknown, 03/06/20) Uncoded Allergies: SEAFOOD (Allergy, Unknown, 03/06/20) All Systems: reviewed and negative except above Objective Last 24 Hour Vital Signs Date Time Temp Pulse Resp B/P (MAP) Pulse Ox O2 Delivery O2 Flow Rate FiO2 03/17/20 06:03 160/89 03/17/20 04:00 97.0 76 20 160/94 (116) 95 03/17/20 04:00 70 03/17/20 00:00 97.7 68 20 159/84 (109) 94 03/17/20 00:00 68 03/16/20 21:50 162/81 03/16/20 21:00 Nasal Cannula 2.0 03/16/20 20:47 79 18 97 Nasal Cannula 3.0 32 75 18 94 03/16/20 20:00 97.0 80 20 162/81 (108) 93 03/16/20 19:03 94 Nasal Cannula 3.0 32 03/16/20 17:00 79 03/16/20 16:00 97.0 84 20 145/73 (97) 93 03/16/20 15:33 146/71 03/16/20 12:00 97.7 80 22 152/75 (100) 94 03/16/20 12:00 76 03/16/20 11:18 81 18 98 Nasal Cannula 3.0 32 78 18 93 Intake and Output 03/16/20 03/17/20 19:00 07:00 Intake Total 360 ml Output Total 300 ml Balance 60 ml Intake Oral 360 ml Output Urine Total 300 ml # Voids 3 # Bowel Movements 1 1 General Appearance: no acute distress HEENT: normocephalic Respiratory: chest wall non-tender, decreased breath sounds Cardiovascular: normal peripheral pulses, normal rate Abdomen: normal bowel sounds Laboratory Tests 03/16/20 10:56: POC Whole Blood Glucose 317H 03/16/20 16:06: POC Whole Blood Glucose 162H 03/17/20 06:37: White Blood Count 15.8H, Red Blood Count 4.52L, Hemoglobin 12.4L, Hematocrit 40.0L, Mean Corpuscular Volume 89, Mean Corpuscular Hemoglobin 27.5, Mean Corpuscular Hemoglobin Concent 31.0L, Red Cell Distribution Width 14.3, Platelet Count 246, Mean Platelet Volume 9.1, Neutrophils (%) (Auto) , Lymphocytes (%) (Auto) , Monocytes (%) (Auto) , Eosinophils (%) (Auto) , Basophils (%) (Auto) , Neutrophils % (Manual) [Pending], Lymphocytes % (Manual) [Pending], Platelet Estimate [Pending], Platelet Morphology [Pending], Sodium Level 133L, Potassium Level 4.3, Chloride Level 97L, Carbon Dioxide Level 26, Anion Gap 10, Blood Urea Nitrogen 91H, Creatinine 4.1H, Estimat Glomerular Filtration Rate 17.7, Glucose Level 344H, Uric Acid 5.7, Calcium Level 8.5, Phosphorus Level 5.2H, Magnesium Level 2.5H, Total Bilirubin 0.2, Aspartate Amino Transf (AST/SGOT) 23, Alanine Aminotransferase (ALT/SGPT) 24, Alkaline Phosphatase 101, C-Reactive Protein, Q uantitative 1.0H, Total Protein 6.8, Albumin 2.6L, Globulin 4.2, Albumin/Globulin Ratio 0.6L Current Medications Medications (Trade) Dose Ordered Sig/Melissa Route PRN Reason Start Time Stop Time Status Last Admin Dose Admin Allopurinol (allopurinoL) 300 mg DAILY ORAL 03/09/20 14:30 04/08/20 14:29 03/16/20 09:44 Budesonide (Pulmicort) 0.25 mg EVERY 12 HOURS N 03/06/20 21:00 06/04/20 20:59 03/17/20 07:42 Chlorhexidine Gluconate (Cherry-Hex 2%) 1 applic DAILY@1999 TOPIC 03/17/20 20:00 06/15/20 19:59 Chlorhexidine Gluconate (Cherry-Hex 2%) 1 applic DAILY@1999 TOPIC 03/10/20 21:45 06/08/20 21:44 03/16/20 21:50 Citalopram Hydrobromide (CeleXA) 20 mg DAILY ORAL 03/10/20 09:00 12/4/20 08:59 03/16/20 09:42 Clonidine HCl (Catapres Tab) 0.1 mg Q4H PRN ORAL SBP>170 03/06/20 16:15 06/04/20 16:14 Dextrose (Dextrose 50%) 25 ml Q30M PRN IV Hypoglycemia 03/13/20 16:30 06/11/20 16:29 Dextrose (Dextrose 50%) 50 ml Q30M PRN IV Hypoglycemia 03/13/20 16:30 06/11/20 16:29 Diphenhydramine HCl (Benadryl) 50 mg Q6H PRN ORAL Itching 03/06/20 19:00 04/05/20 18:59 Docusate Sodium (Colace) 100 mg THREE TIMES A DAY ORAL 03/08/20 13:00 04/07/20 12:59 03/16/20 18:50 Guaifenesin/ Dextromethorphan (Robitussin DM Syrup) 10 ml Q4H PRN ORAL For Cough 03/06/20 19:00 06/04/20 18:59 03/12/20 00:51 Heparin Sodium (Porcine) (Heparin 5000 units/ml) 5,000 units BID SUBQ 03/07/20 09:00 04/21/20 08:59 03/16/20 18:43 Heparin Sodium/ Sodium Chloride (Heparin 1000 units/500ml Premix) 1,000 unit ONCE PRN INJ RADIOLOGY PROCEDURE 03/17/20 09:30 03/19/20 09:29 Hydralazine HCl (Apresoline) 50 mg Q8HR ORAL 03/11/20 14:00 06/04/20 17:59 03/17/20 06:03 Insulin Aspart (NovoLOG) BEFORE MEALS AND HS SUBQ 03/13/20 16:30 06/11/20 16:29 03/17/20 06:02 Insulin Aspart (NovoLOG) 10 units NOVOTIAC SUBQ 03/17/20 11:50 06/13/20 06:29 Insulin Detemir (Levemir) 16 units BID SUBQ 03/17/20 09:00 06/13/20 08:59 Lidocaine/ Epinephrine (Lidocaine 1%/ Epi 0.01mg 20ml) 1 ml ONCE PRN INJ RADIOLOGY PROCEDURE 03/17/20 09:30 03/19/20 09:29 Lisinopril (ZestriL) 5 mg DAILY ORAL 03/17/20 09:00 04/16/20 08:59 Lorazepam (Ativan) 1 mg Q6H PRN ORAL For Anxiety 03/15/20 11:47 03/22/20 11:46 Methylprednisolone Sodium Succinate (Solu-MEDROL) 40 mg EVERY 6 HOURS IVP 03/11/20 12:00 06/09/20 11:59 03/17/20 00:37 Pantoprazole (Protonix) 40 mg EVERY 12 HOURS ORAL 03/08/20 21:00 04/07/20 20:59 03/16/20 21:51 Phenol/Menthol (Chloraseptic) 1 spray TIDPRN PRN ORAL For Pain 03/06/20 19:00 06/04/20 18:59 Sevelamer Carbonate (Renvela) 1,600 mg THREE TIMES A DAY ORAL 03/09/20 09:00 06/07/20 08:59 03/16/20 18:50 Tamsulosin HCl (Flomax) 0.4 mg BID ORAL 03/08/20 11:30 04/07/20 11:29 03/16/20 18:50 Vitamin B Complex (Vitamin B Complex) 1 tab DAILY ORAL 03/07/20 09:00 06/05/20 08:59 03/16/20 09:43 Assessment/Plan Assessment/Plan IMPRESSION: 1. Improved pulmonary edema 2. Hypertension. 3. Diabetes mellitus. 4. Renal failure. 5. COPD. 6. Negative COVID 19 rapid test DISCUSSION: Continue breathing treatments with albuterol and Atrovent Negative COVID 19 Broad-spectrum antibiotics will be given. I will follow carefully. HD per renal Pulled oput groin line Needs Permacath per enal Oxygenation improved Currently on 2-4L/O2via nasal canulae; saturating 95% Jie Rivera Omar Syed MD Mar 17, 2020 09:57
[2020-03-17] MEDS: Lisinopril 2.5mg tab ORAL SCH (10:51)
[2020-03-17] MEDS: Docusate 100mg cap ORAL SCH ×3 (10:51→17:33)
[2020-03-17] MEDS: Citalopram Hydrobromide 10mg Tab ORAL SCH (10:52)
[2020-03-17] MEDS: Tamsulosin 0.4mg cap ORAL SCH ×2 (10:52→17:33)
[2020-03-17] MEDS: Heparin 5000 units/ml inj SUBQ SCH ×2 (10:53→17:34)
[2020-03-17] MEDS: Levemir Flexpen SUBQ SCH ×2 (10:55→17:35)
--- NOTE | 2020-03-17 12:25 | Cardiac Electrophysiology PN ---
Assessment/Plan Assessment/Plan 1. Severe bilateral lower extremity edema with shortness of breath and BNP of almost 4000. EF 60%. Due to CHF due to diastolic dysfunction and renal failure on HD. 2. Hypertension. On HD , hydralazine 50 mg tid and p.r.n. clonidine. 3. Renal failure, creatinine was 3.9 that increased to >4 with BUN 80. Started on HD Pulled out his Right groin Janusz cath PermCath placement pending today 4. COPD. DW RN DW Dr. Singh. Subjective Subjective No CP. ECG SR with RBBB, LAFB Got RFV Janusz and had HD 4 liters on 03/09 and 3 liters on 03/10 On Nasal Cannula. Pulled out his Right groin Janusz cath PermCath placement pending today Objective Last 24 Hour Vital Signs Date Time Temp Pulse Resp B/P (MAP) Pulse Ox O2 Delivery O2 Flow Rate FiO2 03/17/20 10:51 166/73 03/17/20 08:01 98 Nasal Cannula 3.0 32 03/17/20 07:52 84 18 98 Nasal Cannula 3.0 32 82 20 95 03/17/20 06:03 160/89 03/17/20 04:00 97.0 76 20 160/94 (116) 95 03/17/20 04:00 70 03/17/20 00:00 97.7 68 20 159/84 (109) 94 03/17/20 00:00 68 03/16/20 21:50 162/81 03/16/20 21:00 Nasal Cannula 2.0 03/16/20 20:47 79 18 97 Nasal Cannula 3.0 32 75 18 94 03/16/20 20:00 97.0 80 20 162/81 (108) 93 03/16/20 19:03 94 Nasal Cannula 3.0 32 03/16/20 17:00 79 03/16/20 16:00 97.0 84 20 145/73 (97) 93 03/16/20 15:33 146/71 Intake and Output 03/16/20 03/17/20 19:00 07:00 Intake Total 360 ml Output Total 300 ml Balance 60 ml Intake Oral 360 ml Output Urine Total 300 ml # Voids 3 # Bowel Movements 1 1 Laboratory Tests Test 03/16/20 16:06 03/17/20 06:37 03/17/20 10:00 POC Whole Blood Glucose 162 MG/DL (74-106) H White Blood Count 15.8 K/UL (4.8-10.8) H Red Blood Count 4.52 M/UL (4.70-6.10) L Hemoglobin 12.4 G/DL (14.2-18.0) L Hematocrit 40.0 % (42.0-52.0) L Mean Corpuscular Volume 89 FL (80-99) Mean Corpuscular Hemoglobin 27.5 PG (27.0-31.0) Mean Corpuscular Hemoglobin Concent 31.0 G/DL (32.0-36.0) L Red Cell Distribution Width 14.3 % (11.6-14.8) Platelet Count 246 K/UL (150-450) Mean Platelet Volume 9.1 FL (6.5-10.1) Neutrophils (%) (Auto) % (45.0-75.0) Lymphocytes (%) (Auto) % (20.0-45.0) Monocytes (%) (Auto) % (1.0-10.0) Eosinophils (%) (Auto) % (0.0-3.0) Basophils (%) (Auto) % (0.0-2.0) Differential Total Cells Counted 100 Neutrophils % (Manual) 96 % (45-75) H Lymphocytes % (Manual) 3 % (20-45) L Monocytes % (Manual) 1 % (1-10) Eosinophils % (Manual) 0 % (0-3) Basophils % (Manual) 0 % (0-2) Band Neutrophils 0 % (0-8) Platelet Estimate Adequate Platelet Morphology Normal Hypochromasia 1+ Sodium Level 133 MMOL/L (136-145) L Potassium Level 4.3 MMOL/L (3.5-5.1) Chloride Level 97 MMOL/L (98-107) L Carbon Dioxide Level 26 MMOL/L (21-32) Anion Gap 10 mmol/L (5-15) Blood Urea Nitrogen 91 mg/dL (7-18) H Creatinine 4.1 MG/DL (0.55-1.30) H Estimat Glomerular Filtration Rate 17.7 mL/min (>60) Glucose Level 344 MG/DL (74-106) H Uric Acid 5.7 MG/DL (2.6-7.2) Calcium Level 8.5 MG/DL (8.5-10.1) Phosphorus Level 5.2 MG/DL (2.5-4.9) H Magnesium Level 2.5 MG/DL (1.8-2.4) H Total Bilirubin 0.2 MG/DL (0.2-1.0) Aspartate Amino Transf (AST/SGOT) 23 U/L (15-37) Alanine Aminotransferase (ALT/SGPT) 24 U/L (12-78) Alkaline Phosphatase 101 U/L (46-116) C-Reactive Protein, Quantitative 1.0 mg/dL (0.00-0.90) H Total Protein 6.8 G/DL (6.4-8.2) Albumin 2.6 G/DL (3.4-5.0) L Globulin 4.2 g/dL Albumin/Globulin Ratio 0.6 (1.0-2.7) L Prothrombin Time 11.2 SEC (9.30-11.50) Prothromb Time International Ratio 1.0 (0.9-1.1) Activated Partial Thromboplast Time 26 SEC (23-33) Objective HEAD AND NECK: Positive JVD. LUNGS: Decreased breath sounds. CARDIOVASCULAR: Regular S1 and S2 with no gallop. ABDOMEN: Soft. EXTREMITIES: 2+ pitting edema in lower extremities as well as 2+ pitting edema in right arm. Ponce Serna MD Mar 17, 2020 12:25
--- NOTE | 2020-03-17 13:23 | Infectious Diseases Prog Note ---
Assessment/Plan Assessment/Plan IMPRESSION: 1. Pneumonia. treated 2. COPD. 3. Pulmonary edema. 4. CHF. 5. Diabetes mellitus. 6. Hypertension. 7. ESRD 8. Anemia. 9. BPH. 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 Pleural effusion 12. Leukocytosis, steroid related RECOMMENDATION: Observe off of antibiotic Patient is clear for PermCath placement Case was D/W radiologist Subjective ROS Limited/Unobtainable: No Constitutional: Reports: no symptoms Respiratory: Reports: shortness of breath, other - slight Gastrointestinal/Abdominal: Reports: no symptoms Genitourinary: Reports: no symptoms Allergies: Coded Allergies: PENICILLINS (Verified Allergy, Unknown, 03/06/20) Uncoded Allergies: SEAFOOD (Allergy, Unknown, 03/06/20) Objective Last 24 Hour Vital Signs Date Time Temp Pulse Resp B/P (MAP) Pulse Ox O2 Delivery O2 Flow Rate FiO2 03/17/20 10:51 166/73 03/17/20 08:01 98 Nasal Cannula 3.0 32 03/17/20 07:52 84 18 98 Nasal Cannula 3.0 32 82 20 95 03/17/20 06:03 160/89 03/17/20 04:00 97.0 76 20 160/94 (116) 95 03/17/20 04:00 70 03/17/20 00:00 97.7 68 20 159/84 (109) 94 03/17/20 00:00 68 03/16/20 21:50 162/81 03/16/20 21:00 Nasal Cannula 2.0 03/16/20 20:47 79 18 97 Nasal Cannula 3.0 32 75 18 94 03/16/20 20:00 97.0 80 20 162/81 (108) 93 03/16/20 19:03 94 Nasal Cannula 3.0 32 03/16/20 17:00 79 03/16/20 16:00 97.0 84 20 145/73 (97) 93 03/16/20 15:33 146/71 Height (Feet): 5 Height (Inches): 9.00 Weight (Pounds): 228 General Appearance: no acute distress HEENT: mucous membranes moist Respiratory/Chest: lungs clear Cardiovascular: normal rate Abdomen: soft, non tender Extremities: other - decreased edema Neurologic/Psychiatric: alert, responsive Laboratory Tests Test 03/16/20 16:06 03/17/20 06:37 03/17/20 10:00 POC Whole Blood Glucose 162 MG/DL (74-106) H White Blood Count 15.8 K/UL (4.8-10.8) H Red Blood Count 4.52 M/UL (4.70-6.10) L Hemoglobin 12.4 G/DL (14.2-18.0) L Hematocrit 40.0 % (42.0-52.0) L Mean Corpuscular Volume 89 FL (80-99) Mean Corpuscular Hemoglobin 27.5 PG (27.0-31.0) Mean Corpuscular Hemoglobin Concent 31.0 G/DL (32.0-36.0) L Red Cell Distribution Width 14.3 % (11.6-14.8) Platelet Count 246 K/UL (150-450) Mean Platelet Volume 9.1 FL (6.5-10.1) Neutrophils (%) (Auto) % (45.0-75.0) Lymphocytes (%) (Auto) % (20.0-45.0) Monocytes (%) (Auto) % (1.0-10.0) Eosinophils (%) (Auto) % (0.0-3.0) Basophils (%) (Auto) % (0.0-2.0) Differential Total Cells Counted 100 Neutrophils % (Manual) 96 % (45-75) H Lymphocytes % (Manual) 3 % (20-45) L Monocytes % (Manual) 1 % (1-10) Eosinophils % (Manual) 0 % (0-3) Basophils % (Manual) 0 % (0-2) Band Neutrophils 0 % (0-8) Platelet Estimate Adequate Platelet Morphology Normal Hypochromasia 1+ Sodium Level 133 MMOL/L (136-145) L Potassium Level 4.3 MMOL/L (3.5-5.1) Chloride Level 97 MMOL/L (98-107) L Carbon Dioxide Level 26 MMOL/L (21-32) Anion Gap 10 mmol/L (5-15) Blood Urea Nitrogen 91 mg/dL (7-18) H Creatinine 4.1 MG/DL (0.55-1.30) H Estimat Glomerular Filtration Rate 17.7 mL/min (>60) Glucose Level 344 MG/DL (74-106) H Uric Acid 5.7 MG/DL (2.6-7.2) Calcium Level 8.5 MG/DL (8.5-10.1) Phosphorus Level 5.2 MG/DL (2.5-4.9) H Magnesium Level 2.5 MG/DL (1.8-2.4) H Total Bilirubin 0.2 MG/DL (0.2-1.0) Aspartate Amino Transf (AST/SGOT) 23 U/L (15-37) Alanine Aminotransferase (ALT/SGPT) 24 U/L (12-78) Alkaline Phosphatase 101 U/L (46-116) C-Reactive Protein, Quantitative 1.0 mg/dL (0.00-0.90) H Total Protein 6.8 G/DL (6.4-8.2) Albumin 2.6 G/DL (3.4-5.0) L Globulin 4.2 g/dL Albumin/Globulin Ratio 0.6 (1.0-2.7) L Prothrombin Time 11.2 SEC (9.30-11.50) Prothromb Time International Ratio 1.0 (0.9-1.1) Activated Partial Thromboplast Time 26 SEC (23-33) Current Medications Medications (Trade) Dose Ordered Sig/Melissa Route PRN Reason Start Time Stop Time Status Last Admin Dose Admin Allopurinol (allopurinoL) 300 mg DAILY ORAL 03/09/20 14:30 04/08/20 14:29 03/17/20 10:51 Budesonide (Pulmicort) 0.25 mg EVERY 12 HOURS HHN 03/06/20 21:00 06/04/20 20:59 03/17/20 07:42 Chlorhexidine Gluconate (Cherry-Hex 2%) 1 applic DAILY@1999 TOPIC 03/17/20 20:00 06/15/20 19:59 Chlorhexidine Gluconate (Cherry-Hex 2%) 1 applic DAILY@1999 TOPIC 03/10/20 21:45 06/08/20 21:44 03/16/20 21:50 Citalopram Hydrobromide (CeleXA) 20 mg DAILY ORAL 03/10/20 09:00 04/09/20 08:59 03/17/20 10:52 Clonidine HCl (Catapres Tab) 0.1 mg Q4H PRN ORAL SBP>170 03/06/20 16:15 06/04/20 16:14 Dextrose (Dextrose 50%) 25 ml Q30M PRN IV Hypoglycemia 03/13/20 16:30 06/11/20 16:29 Dextrose (Dextrose 50%) 50 ml Q30M PRN IV Hypoglycemia 03/13/20 16:30 06/11/20 16:29 Diphenhydramine HCl (Benadryl) 50 mg Q6H PRN ORAL Itching 03/06/20 19:00 04/05/20 18:59 Docusate Sodium (Colace) 100 mg THREE TIMES A DAY ORAL 03/08/20 13:00 04/07/20 12:59 03/17/20 10:51 Guaifenesin/ Dextromethorphan (Robitussin DM Syrup) 10 ml Q4H PRN ORAL For Cough 03/06/20 19:00 06/04/20 18:59 03/12/20 00:51 Heparin Sodium (Porcine) (Heparin 5000 units/ml) 5,000 units BID SUBQ 03/07/20 09:00 04/21/20 08:59 03/16/20 18:43 Heparin Sodium/ Sodium Chloride (Heparin 1000 units/500ml Premix) 1,000 unit ONCE PRN INJ RADIOLOGY PROCEDURE 03/17/20 09:30 03/19/20 09:29 Hydralazine HCl (Apresoline) 50 mg Q8HR ORAL 03/11/20 14:00 06/04/20 17:59 03/17/20 06:03 Insulin Aspart (NovoLOG) BEFORE MEALS AND HS SUBQ 03/13/20 16:30 06/11/20 16:29 03/17/20 06:02 Insulin Aspart (NovoLOG) 10 units NOVOTIAC SUBQ 03/17/20 11:50 06/13/20 06:29 Insulin Detemir (Levemir) 16 units BID SUBQ 03/17/20 09:00 06/13/20 08:59 03/17/20 10:55 Lidocaine/ Epinephrine (Lidocaine 1%/ Epi 0.01mg 20ml) 1 ml ONCE PRN INJ RADIOLOGY PROCEDURE 03/17/20 09:30 03/19/20 09:29 Lisinopril (ZestriL) 5 mg DAILY ORAL 03/17/20 09:00 04/16/20 08:59 03/17/20 10:51 Lorazepam (Ativan) 1 mg Q6H PRN ORAL For Anxiety 03/15/20 11:47 03/22/20 11:46 Methylprednisolone Sodium Succinate (Solu-MEDROL) 40 mg EVERY 6 HOURS IVP 03/11/20 12:00 06/09/20 11:59 03/17/20 00:37 Pantoprazole (Protonix) 40 mg EVERY 12 HOURS ORAL 03/08/20 21:00 04/07/20 20:59 03/17/20 10:52 Phenol/Menthol (Chloraseptic) 1 spray TIDPRN PRN ORAL For Pain 03/06/20 19:00 06/04/20 18:59 Sevelamer Carbonate (Renvela) 1,600 mg THREE TIMES A DAY ORAL 03/09/20 09:00 06/07/20 08:59 03/17/20 10:52 Tamsulosin HCl (Flomax) 0.4 mg BID ORAL 03/08/20 11:30 04/07/20 11:29 03/17/20 10:52 Vitamin B Complex (Vitamin B Complex) 1 tab DAILY ORAL 03/07/20 09:00 06/05/20 08:59 03/17/20 09:00 Brett Pleitez MD Mar 17, 2020 13:23
--- NOTE | 2020-03-17 14:12 | NUR ---
CASE MANAGEMENT:REVIEW 03/17/20 SI: PNA. COPD. ACUTE RENAL FAILURE 97.0 70 20 160/94 95% ON 3L/NC WBC+15.8 BUN+91 CR+4.1 IS: IV SOLUMEDROL 40MG Q6HRS LISINOPRIL PO QD HYDRALAZINE PO Q8HRS RENVELA PO TID FLOMAX PO BID HEPARIN SQ BID PULMICORT HHN Q12 : TELEMETRY STATUS DCP: FROM [facility] PLAN: TUNNELED DIALYSIS CATHETER TO BE PLACED TODAY
--- NOTE | 2020-03-17 14:29 | NUR ---
DISCHARGE PLANNING CALLED OUR LAB TO REQUEST HEP PANEL RESULTS THAT WAS ORDERED ON Sunday03/12/20 THEY WERE NOT ABLE TO FIND RESULTS AND SAID THEY WOULD LOOK IN TO IT AND CALL THIS SOLE BUFFER BACK FAXED CLINICALS TO [facility] T; [phone] F: [phone] WILL F/U REGARDING CHAIR TIME
--- NOTE | 2020-03-17 15:05 | NUR ---
NURSE NOTES: pt off tele floor for procedure , Rn went with pt. procedure lasted from 40- 50 min.
--- NOTE | 2020-03-17 15:07 | Pre-Procedure Note/Attestation ---
Pre-Procedure Note/Attestation Complete Prior to Procedure Planned Procedure: not applicable Procedure Narrative: Permacath Indications for Procedure Pre-Operative Diagnosis: Renal failure Attestation I attest that I discussed the nature of the procedure; its benefits; risks and complications; and alternatives (and the risks and benefits of such alternatives), prior to the procedure, with the patient (or the patient's legal territory service representative). I attest that, if there was a reasonable possibility of needing a blood t ransfusion, the patient (or the patient's legal territory service representative) was given the [facility] standardized written summary, pursuant to the Cody Adilson Blood Safety Act ([place] Health and Safety Code # 1645, as amended). I attest that I re-evaluated the patient just prior to the surgery and that there has been no change in the patient's H&P, except as documented below: Phillip Martinez MD Mar 17, 2020 15:07
--- NOTE | 2020-03-17 15:10 | Brief Operative Note ---
Immediate Post Operative Note Operative Note Pre-op Diagnosis: Renal failure Procedure: Permacath Post-op Diagnosis: same as pre-op Surgeon: Wolf Ellis Anesthesia: local Specimen: none Complications: none Fluids: none Implant(s) used?: Yes - BioFlo catheter Phillip Ellis MD Mar 17, 2020 15:10
[2020-03-17] MEDS: Clindamycin 600mg 50 ML IV SCH ×2 (16:00→16:17)
--- NOTE | 2020-03-17 16:30 | NUR ---
NURSE NOTES: pt has new IV access placed by ICU.
--- NOTE | 2020-03-17 16:30 | NUR ---
NURSE NOTES: pt was not given Novolog scheduled dose or sliding scale. pt ate less than half of dinner.
--- NOTE | 2020-03-17 17:54 | NUR ---
RADIOLOGY NOTE: RIJ TUNNELED DIALYSIS CATHETER PLACEMENT BY DR. ADRIANA MAHMOOD AT 1500 HRS. FA
--- NOTE | 2020-03-17 17:55 | NUR ---
NURSE NOTES: pt took off IV access.
--- NOTE | 2020-03-17 19:35 | NUR ---
NURSE NOTES: RECEIVED REPORT FROM BELKIS LI. PT IN BED ALERT/ORIENTED X4 WITH PERIODS OF FORGETFULNESS NOTED. ON O2 VIA NC AT 2L/MIN SATING WELL. DOCUMENT SPECIALIST IN PLACE. NICKY CATH IN PLACE ON RIGHT UPPER CHEST, NO S/S BLEEDING NOTED. EXPLAINED PT NOT TO TOUCH OR PULL OUT NICKY CATH. BED IN LOW POSITION & LOCKED, SIDE RAILS UP X3. BED ALARM ON, CALL LIGHT WITH IN REACH.
[2020-03-17] MEDS: Dyna-Hex 2% Top Sol 2oz TOPIC SCH ×2 (20:00→21:41)
--- NOTE | 2020-03-17 20:17 | General Progress Note ---
Subjective ROS Limited/Unobtainable: Yes Allergies: Coded Allergies: PENICILLINS (Verified Allergy, Unknown, 03/06/20) Uncoded Allergies: SEAFOOD (Allergy, Unknown, 03/06/20) Objective Last 24 Hour Vital Signs Date Time Temp Pulse Resp B/P (MAP) Pulse Ox O2 Delivery O2 Flow Rate FiO2 03/17/20 19:19 94 Nasal Cannula 3.0 32 03/17/20 16:00 98.8 90 20 154/55 (88) 93 03/17/20 14:17 75 17 3.0 03/17/20 13:41 134/104 03/17/20 12:00 97.8 113 20 158/96 (116) 98 03/17/20 10:51 166/73 03/17/20 08:01 98 Nasal Cannula 3.0 32 03/17/20 08:00 98.2 76 20 157/82 (107) 95 03/17/20 07:52 84 18 98 Nasal Cannula 3.0 32 82 20 95 03/17/20 06:03 160/89 03/17/20 04:00 97.0 76 20 160/94 (116) 95 03/17/20 04:00 70 03/17/20 00:00 97.7 68 20 159/84 (109) 94 03/17/20 00:00 68 03/16/20 21:50 162/81 03/16/20 21:00 Nasal Cannula 2.0 03/16/20 20:47 79 18 97 Nasal Cannula 3.0 32 75 18 94 Intake and Output 03/16/20 03/17/20 19:00 07:00 Intake Total 360 ml Output Total 300 ml Balance 60 ml Intake Oral 360 ml Output Urine Total 300 ml # Voids 3 # Bowel Movements 1 1 Laboratory Tests 03/17/20 06:37: White Blood Count 15.8H, Red Blood Count 4.52L, Hemoglobin 12.4L, Hematocrit 40.0L, Mean Corpuscular Volume 89, Mean Corpuscular Hemoglobin 27.5, Mean Mimi uscular Hemoglobin Concent 31.0L, Red Cell Distribution Width 14.3, Platelet Count 246, Mean Platelet Volume 9.1, Neutrophils (%) (Auto) , Lymphocytes (%) (Auto) , Monocytes (%) (Auto) , Eosinophils (%) (Auto) , Basophils (%) (Auto) , Differential Total Cells Counted 100, Neutrophils % (Manual) 96H, Lymphocytes % (Manual) 3L, Monocytes % (Manual) 1, Eosinophils % (Manual) 0, Basophils % (Manual) 0, Band Neutrophils 0, Platelet Estimate Adequate, Platelet Morphology Normal, Hypochromasia 1+, Sodium Level 133L, Potassium Level 4.3, Chloride Level 97L, Carbon Dioxide Level 26, Anion Gap 10, Blood Urea Nitrogen 91H, Creatinine 4.1H, Estimat Glomerular Filtration Rate 17.7, Glucose Level 344H, Uric Acid 5.7, Calcium Level 8.5, Phosphorus Level 5.2H, Magnesium Level 2.5H, Total Bilirubin 0.2, Aspartate Amino Transf (AST/SGOT) 23, Alanine Aminotransferase (ALT/SGPT) 24, Alkaline Phosphatase 101, C-Reactive Protein, Quantitative 1.0H, Total Protein 6.8, Albumin 2.6L, Globulin 4.2, Albumin/Globulin Ratio 0.6L 03/17/20 10:00: Prothrombin Time 11.2, Prothromb Time International Ratio 1.0, Activated Partial Thromboplast Time 26 03/17/20 13:29: POC Whole Blood Glucose [Pending] 03/17/20 17:16: POC Whole Blood Glucose 129H Height (Feet): 5 Height (Inches): 9.00 Weight (Pounds): 228 Assessment/Plan Problem List: (1) COPD (chronic obstructive pulmonary disease) ICD Codes: J44.9 - Chronic obstructive pulmonary disease, unspecified SNOMED: 06160732 Qualifiers: Qualified Codes: J44.1 - Chronic obstructive pulmonary disease with (acute) exacerbation (2) CHF (congestive heart failure) ICD Codes: I50.9 - Heart failure, unspecified SNOMED: 28179219 Qualifiers: Qualified Codes: I50.9 - Heart failure, unspecified (3) Hypoxia ICD Codes: R09.02 - Hypoxemia SNOMED: 562987483 (4) Renal failure (ARF), acute on chronic ICD Codes: N17.9 - Acute kidney failure, unspecified; N18.9 - Chronic kidney disease, unspecified SNOMED: 362277418 Qualifiers: Qualified Codes: N17.9 - Acute kidney failure, unspecified; N18.4 - Chronic kidney disease, stage 4 (severe) Status: progressing, deteriorating Assessment/Plan: pulled out jia cath dialysis access per dr dawn capacity to decide per dr lopez copd exac is improving chf is improving azotmeia no wheezing John Chavez MD Mar 17, 2020 20:17
--- NOTE | 2020-03-17 20:25 | NUR ---
NURSE HAND-OFF REPORT: Important Events on Shift: pt had a tunnel catheter placed today, area has been covered gauze to prevent pt from pulling it off. Pt has been educated about not touching or pulling on catheter. Pt also pulled out Iv access. This NEW CATHETER IS ONLY TO BE USED FOR DIALYSIS ONLY PER DOCTOR PEDRO'S INSTRUCTIONS. Pt will be dialyzed tomorrow and doctor will put the order to day or tomorrow morning. Patient Status: full Diet: renal Pending Orders: dialysis Pending Results/Labs: Pending MD notification: Latest Vital Signs: Temperature 98.8 , Pulse 82 , B/P 154 /55 , Respiratory Rate 20 , O2 SAT 94 , Nasal Cannula, O2 Flow Rate 3.0 . Vital Sign Comment: EKG Rhythm: SR w/BBB Rhythm change?: N MD Notified?: N - MD Response: Latest Ryan Fall Score: 60 Fall Risk: High Risk Safety Measures: Call light Within Reach, Bed Alarm Zone 1, Side Rails Side Rails x2, Bed position Low and Locked. Fall Precautions: y Yellow Socks y Yellow Gown y Patient Fall Education Report given to Sobia/RN .
--- NOTE | 2020-03-17 20:41 | Diagnostic Imaging Report ---
Indications: Needs long-term dialysis access Technique: Patient given IV minimized. Total sterile technique, including sterile probe cover and sterile gel, sterile gloves, hand hygiene, hat, mask,, sterile gown, large sterile drape, and preparation with 2% chlorhexidine utilized. Local anesthesia with 1% lidocaine. Ultrasound demonstrated patent compressible right internal jugular vein. Under real-time ultrasound guidance and with real-time visualization of the needle entering the vein lumen, puncture right internal jugular vein using 21-gauge micropuncture needle, passage 0.018 guidewire, exchange for 4 Tajik micropuncture introducer. The guidewire was used to measure the appropriate catheter length, and was removed. The sheath was left in place. The subcutaneous tract was then anesthetized with 1% lidocaine. A chest dermatotomy was made . The tunneling device was used to pull a 14.5 Tajik 23 cm BioFlo catheter through the subcutaneous tunnel to the neck dermatotomy. A guidewire was passed through the neck introducer into the inferior vena cava, and serial dilators were passed over it, followed by the introduction of a 14.5 Tajik AirGuard peel-away sheath. The catheter was then introduced into the sheath, the peel-away sheath was removed. Digital radiograph documents satisfactory catheter tip position in the high right atrium, no kinking at the insertion site. Both catheter ports aspirated and flushed. Catheter was fixed to the skin. Patient tolerated procedure well without immediate complication. Total fluoroscopy time 29 seconds. Total dose area product 0.70070 mGym2 Total number of images-one Comparison: None. Findings: Completion radiograph documents satisfactory position and course of the catheter, catheter tip at the high right atrium . Impression: Successful placement of right transjugular tunneled dialysis catheter, as described above
[2020-03-17] MEDS ORDERED: NS 275ml ONE (21:48)
--- NOTE | 2020-03-17 23:03 | Psychiatric Progress Note ---
Psychiatry Progress Note Psychiatry Progress Note Subjective the pt is having anxiety compliant no behavioral issues the pt has capacity to give consent. Medications Current Medications Medications (Trade) Dose Ordered Sig/Melissa Route PRN Reason Start Time Stop Time Status Last Admin Dose Admin Allopurinol (allopurinoL) 300 mg DAILY ORAL 03/09/20 14:30 04/08/20 14:29 03/17/20 10:51 Budesonide (Pulmicort) 0.25 mg EVERY 12 HOURS HHN 03/06/20 21:00 06/04/20 20:59 03/17/20 21:29 Chlorhexidine Gluconate (Cherry-Hex 2%) 1 applic DAILY@1999 TOPIC 03/17/20 20:00 06/15/20 19:59 Chlorhexidine Gluconate (Cherry-Hex 2%) 1 applic DAILY@1999 TOPIC 03/10/20 21:45 06/08/20 21:44 03/17/20 21:41 Citalopram Hydrobromide (CeleXA) 20 mg DAILY ORAL 03/10/20 09:00 04/09/20 08:59 03/17/20 10:52 Clonidine HCl (Catapres Tab) 0.1 mg Q4H PRN ORAL SBP>170 03/06/20 16:15 06/04/20 16:14 Dextrose (Dextrose 50%) 25 ml Q30M PRN IV Hypoglycemia 03/13/20 16:30 06/11/20 16:29 Dextrose (Dextrose 50%) 50 ml Q30M PRN IV Hypoglycemia 03/13/20 16:30 06/11/20 16:29 Diphenhydramine HCl (Benadryl) 50 mg Q6H PRN ORAL Itching 03/06/20 19:00 04/05/20 18:59 Docusate Sodium (Colace) 100 mg THREE TIMES A DAY ORAL 03/08/20 13:00 04/07/20 12:59 03/17/20 17:33 Guaifenesin/ Dextromethorphan (Robitussin DM Syrup) 10 ml Q4H PRN ORAL For Cough 03/06/20 19:00 06/04/20 18:59 03/12/20 00:51 Heparin Sodium (Porcine) (Heparin 5000 units/ml) 5,000 units BID SUBQ 03/07/20 09:00 04/21/20 08:59 03/16/20 18:43 Heparin Sodium/ Sodium Chloride (Heparin 1000 units/500ml Premix) 1,000 unit ONCE PRN INJ RADIOLOGY PROCEDURE 03/17/20 09:30 03/19/20 09:29 Hydralazine HCl (Apresoline) 50 mg Q8HR ORAL 03/11/20 14:00 06/04/20 17:59 03/17/20 21:42 Insulin Aspart (NovoLOG) BEFORE MEALS AND HS SUBQ 03/13/20 16:30 06/11/20 16:29 03/17/20 22:25 Insulin Aspart (NovoLOG) 10 units NOVOTIAC SUBQ 03/17/20 11:50 06/13/20 06:29 03/17/20 13:38 Insulin Detemir (Levemir) 16 units BID SUBQ 03/17/20 09:00 06/13/20 08:59 03/17/20 17:35 Lidocaine/ Epinephrine (Lidocaine 1%/ Epi 0.01mg 20ml) 1 ml ONCE PRN INJ RADIOLOGY PROCEDURE 03/17/20 09:30 03/19/20 09:29 Lisinopril (ZestriL) 5 mg DAILY ORAL 03/17/20 09:00 04/16/20 08:59 03/17/20 10:51 Lorazepam (Ativan) 1 mg Q6H PRN ORAL For Anxiety 03/15/20 11:47 03/22/20 11:46 Methylprednisolone Sodium Succinate (Solu-MEDROL) 40 mg EVERY 6 HOURS IVP 03/11/20 12:00 06/09/20 11:59 03/17/20 17:32 Pantoprazole (Protonix) 40 mg EVERY 12 HOURS ORAL 03/08/20 21:00 04/07/20 20:59 03/17/20 21:42 Phenol/Menthol (Chloraseptic) 1 spray TIDPRN PRN ORAL For Pain 03/06/20 19:00 06/04/20 18:59 Sevelamer Carbonate (Renvela) 1,600 mg THREE TIMES A DAY ORAL 03/09/20 09:00 06/07/20 08:59 03/17/20 17:33 Tamsulosin HCl (Flomax) 0.4 mg BID ORAL 03/08/20 11:30 12/2/20 11:29 03/17/20 17:33 Vitamin B Complex (Vitamin B Complex) 1 tab DAILY ORAL 03/07/20 09:00 06/05/20 08:59 03/17/20 09:00 Neurological/Psychiatric: Reports: anxiety, depressed, emotional problems Allergies: Coded Allergies: PENICILLINS (Verified Allergy, Unknown, 03/06/20) Uncoded Allergies: SEAFOOD (Allergy, Unknown, 03/06/20) Objective Data Height (Feet): 5 Height (Inches): 9.00 Weight (Pounds): 228 General Appearance: mild distress Mental Status Exam - Mood: anxious Additional Comments: alert and oriented times self, place, and situation. Mood is anxious. Affect is blunted, congruent with mood. Thought process is linear and goal oriented. Thought content, no suicidal or homicidal ideation. Cognition is intact. Insight and judgment is fair. Assessment/Plan [place] I: ASSESSMENT: [place] I Anxiety disorder. [place] II Deferred. [place] III As above. [place] IV Low. [place] V 50. PLAN: 1. We will start the patient on Celexa 20 mg in the morning. 2. Ativan as needed. 3. Provide the patient with reality orientation, supportive therapy, and medication. 4. the pt has capacity to make decisions Status: progressing, deteriorating Status Narrative ASSESSMENT: [place] I Anxiety disorder. [place] II Deferred. [place] III As above. [place] IV Low. [place] V 50. PLAN: 1. We will start the patient on Celexa 20 mg in the morning. 2. Ativan as needed. 3. Provide the patient with reality orientation, supportive therapy, and medication. 4. the pt has capacity to make decisions Assessment/Plan: ASSESSMENT: [place] I Anxiety disorder. [place] II Deferred. [place] III As above. [place] IV Low. [place] V 50. PLAN: 1. We will start the patient on Celexa 20 mg in the morning. 2. Ativan as needed. 3. Provide the patient with reality orientation, supportive therapy, and medication. 4. the pt has capacity to make decisions Kwasi Diaz MD Mar 17, 2020 23:03
[2020-03-18] VITALS (7 sets, daily range): BP systolic 127–158; BP diastolic 67–93
[2020-03-18] MEDS: Solu-MEDROL 40mg Inj IVP SCH ×4 (01:06→18:13)
[2020-03-18] MEDS: HydrALAZINE 50mg tab ORAL SCH ×3 (05:59→21:15)
--- NOTE | 2020-03-18 06:26 | General Progress Note ---
Subjective Allergies: Coded Allergies: PENICILLINS (Verified Allergy, Unknown, 03/06/20) Uncoded Allergies: SEAFOOD (Allergy, Unknown, 03/06/20) All Systems: reviewed and negative except above Subjective events noted glucose values improved after yesterday's insulin dose adjustment Item Value Date Time Bedside Blood Glucose 163 mg/dl H 03/17/20 2225 Bedside Blood Glucose 129 mg/dl H 03/17/20 1735 Bedside Blood Glucose 307 mg/dl H 03/17/20 1338 Bedside Blood Glucose 348 mg/dl H 03/17/20 1055 Bedside Blood Glucose 348 mg/dl H 03/17/20 0630 Objective Last 24 Hour Vital Signs Date Time Temp Pulse Resp B/P (MAP) Pulse Ox O2 Delivery O2 Flow Rate FiO2 03/18/20 05:59 150/74 03/18/20 04:00 64 03/18/20 00:00 66 03/18/20 00:00 98.6 86 24 131/79 (96) 96 03/17/20 21:42 130/66 03/17/20 21:30 79 20 98 Nasal Cannula 3.0 32 76 20 94 03/17/20 21:00 Nasal Cannula 2.0 03/17/20 20:00 71 03/17/20 20:00 98.7 74 24 132/58 (82) 93 03/17/20 19:19 94 Nasal Cannula 3.0 32 03/17/20 16:00 82 03/17/20 16:00 98.8 90 20 154/55 (88) 93 03/17/20 14:17 75 17 3.0 03/17/20 13:41 134/104 03/17/20 12:00 97.8 113 20 158/96 (116) 98 03/17/20 12:00 82 03/17/20 10:51 166/73 03/17/20 09:00 Nasal Cannula 2.0 03/17/20 08:01 98 Nasal Cannula 3.0 32 03/17/20 08:00 98.2 76 20 157/82 (107) 95 03/17/20 08:00 78 03/17/20 07:52 84 18 98 Nasal Cannula 3.0 32 82 20 95 Intake and Output 03/17/20 03/18/20 19:00 07:00 Intake Total 510 ml Output Total 650 ml Balance -140 ml Intake Oral 510 ml Output Urine Total 650 ml # Bowel Movements 1 Laboratory Tests 03/17/20 06:37: White Blood Count 15.8H, Red Blood Count 4.52L, Hemoglobin 12.4L, Hematocrit 40.0L, Mean Corpuscular Volume 89, Mean Corpuscular Hemoglobin 27.5, Mean Corpuscular Hemoglobin Concent 31.0L, Red Cell Distribution Width 14.3, Platelet Count 246, Mean Platelet Volume 9.1, Neutrophils (%) (Auto) , Lymphocytes (%) (Auto) , Monocytes (%) (Auto) , Eosinophils (%) (Auto) , Basophils (%) (Auto) , Differential Total Cells Counted 100, Neutrophils % (Manual) 96H, Lymphocytes % (Manual) 3L, Monocytes % (Manual) 1, Eosinophils % (Manual) 0, Basophils % (Manual) 0, Band Neutrophils 0, Platelet Estimate Adequate, Platelet Morphology Normal, Hypochromasia 1+, Sodium Level 133L, Potassium Level 4.3, Chloride Level 97L, Carbon Dioxide Level 26, Anion Gap 10, Blood Urea Nitrogen 91H, Creatinine 4.1H, Estimat Glomerular Filtration Rate 17.7, Glucose Level 344H, Uric Acid 5.7, Calcium Level 8.5, Phosphorus Level 5.2H, Magnesium Level 2.5H, Total Bilirubin 0.2, Aspartate Amino Transf (AST/SGOT) 23, Alanine Aminotransferase (ALT/SGPT) 24, Alkaline Phosphatase 101, C-Reactive Protein, Quantitative 1.0H, Total Protein 6.8, Albumin 2.6L, Globulin 4.2, Albumin/Globulin Ratio 0.6L 03/17/20 10:00: Prothrombin Time 11.2, Prothromb Time International Ratio 1.0, Activated Partial Thromboplast Time 26 03/17/20 13:29: POC Whole Blood Glucose [Pending] 03/17/20 17:16: POC Whole Blood Glucose 129H 03/17/20 21:48: POC Whole Blood Glucose 163H 03/18/20 06:02: POC Whole Blood Glucose 100 Height (Feet): 5 Height (Inches): 9.00 Weight (Pounds): 228 General Appearance: no apparent distress Neck: normal alignment Cardiovascular: normal rate Respiratory/Chest: decreased breath sounds Abdomen: normal bowel sounds Objective Current Medications Medications (Trade) Dose Ordered Sig/Melissa Route PRN Reason Start Time Stop Time Status Last Admin Dose Admin Allopurinol (allopurinoL) 300 mg DAILY ORAL 03/09/20 14:30 04/08/20 14:29 03/17/20 10:51 Budesonide (Pulmicort) 0.25 mg EVERY 12 HOURS HHN 03/06/20 21:00 06/04/20 20:59 03/17/20 21:29 Chlorhexidine Gluconate (Cherry-Hex 2%) 1 applic DAILY@1999 TOPIC 03/17/20 20:00 06/15/20 19:59 03/17/20 20:00 Chlorhexidine Gluconate (Cherry-Hex 2%) 1 applic DAILY@1999 TOPIC 03/10/20 21:45 06/08/20 21:44 03/17/20 21:41 Citalopram Hydrobromide (CeleXA) 20 mg DAILY ORAL 03/10/20 09:00 04/09/20 08:59 03/17/20 10:52 Clonidine HCl (Catapres Tab) 0.1 mg Q4H PRN ORAL SBP>170 03/06/20 16:15 06/04/20 16:14 Dextrose (Dextrose 50%) 25 ml Q30M PRN IV Hypoglycemia 03/13/20 16:30 06/11/20 16:29 Dextrose (Dextrose 50%) 50 ml Q30M PRN IV Hypoglycemia 03/13/20 16:30 06/11/20 16:29 Diphenhydramine HCl (Benadryl) 50 mg Q6H PRN ORAL Itching 03/06/20 19:00 04/05/20 18:59 Docusate Sodium (Colace) 100 mg THREE TIMES A DAY ORAL 03/08/20 13:00 04/07/20 12:59 03/17/20 17:33 Guaifenesin/ Dextromethorphan (Robitussin DM Syrup) 10 ml Q4H PRN ORAL For Cough 03/06/20 19:00 06/04/20 18:59 03/12/20 00:51 Heparin Sodium (Porcine) (Heparin 5000 units/ml) 5,000 units BID SUBQ 03/07/20 09:00 04/21/20 08:59 03/16/20 18:43 Heparin Sodium/ Sodium Chloride (Heparin 1000 units/500ml Premix) 1,000 unit ONCE PRN INJ RADIOLOGY PROCEDURE 03/17/20 09:30 03/19/20 09:29 Hydralazine HCl (Apresoline) 50 mg Q8HR ORAL 03/11/20 14:00 06/04/20 17:59 03/18/20 05:59 Insulin Aspart (NovoLOG) BEFORE MEALS AND HS SUBQ 03/13/20 16:30 06/11/20 16:29 03/17/20 22:25 Insulin Aspart (NovoLOG) 10 units NOVOTIAC SUBQ 03/17/20 11:50 06/13/20 06:29 03/17/20 13:38 Insulin Detemir (Levemir) 16 units BID SUBQ 03/17/20 09:00 06/13/20 08:59 03/17/20 17:35 Lidocaine/ Epinephrine (Lidocaine 1%/ Epi 0.01mg 20ml) 1 ml ONCE PRN INJ RADIOLOGY PROCEDURE 03/17/20 09:30 03/19/20 09:29 Lisinopril (ZestriL) 5 mg DAILY ORAL 03/17/20 09:00 04/16/20 08:59 03/17/20 10:51 Lorazepam (Ativan) 1 mg Q6H PRN ORAL For Anxiety 03/15/20 11:47 03/22/20 11:46 Methylprednisolone Sodium Succinate (Solu-MEDROL) 40 mg EVERY 6 HOURS IVP 03/11/20 12:00 06/09/20 11:59 03/18/20 05:59 Pantoprazole (Protonix) 40 mg EVERY 12 HOURS ORAL 03/08/20 21:00 04/07/20 20:59 03/17/20 21:42 Phenol/Menthol (Chloraseptic) 1 spray TIDPRN PRN ORAL For Pain 03/06/20 19:00 06/04/20 18:59 Sevelamer Carbonate (Renvela) 1,600 mg THREE TIMES A DAY ORAL 03/09/20 09:00 06/07/20 08:59 03/17/20 17:33 Tamsulosin HCl (Flomax) 0.4 mg BID ORAL 03/08/20 11:30 04/07/20 11:29 03/17/20 17:33 Vitamin B Complex (Vitamin B Complex) 1 tab DAILY ORAL 03/07/20 09:00 06/05/20 08:59 03/17/20 09:00 Assessment/Plan Problem List: (1) Hyperglycemia ICD Codes: R73.9 - Hyperglycemia, unspecified SNOMED: 53109099 (2) COPD (chronic obstructive pulmonary disease) ICD Codes: J44.9 - Chronic obstructive pulmonary disease, unspecified SNOMED: 77162096 Qualifiers: Qualified Codes: J44.1 - Chronic obstructive pulmonary disease with (acute) exacerbation (3) CHF (congestive heart failure) ICD Codes: I50.9 - Heart failure, unspecified SNOMED: 11553507 Qualifiers: Qualified Codes: I50.9 - Heart failure, unspecified (4) Hypoxia ICD Codes: R09.02 - Hypoxemia SNOMED: 665386925 (5) Renal failure (ARF), acute on chronic ICD Codes: N17.9 - Acute kidney failure, unspecified; N18.9 - Chronic kidney disease, unspecified SNOMED: 529418274 Qualifiers: Qualified Codes: N17.9 - Acute kidney failure, unspecified; N18.4 - Chronic kidney disease, stage 4 (severe) (6) HTN (hypertension) ICD Codes: I10 - Essential (primary) hypertension SNOMED: 89632586 Status: progressing, deteriorating Assessment/Plan: continue Levemir 16 units bid continue Novolog 10 units ac tid continue Novolog sliding scale ac / hs John Taylor MD Mar 18, 2020 06:26
[2020-03-18] MEDS: NovoLOG Insulin Flexpen SUBQ SCH ×7 (06:30→21:18)
--- NOTE | 2020-03-18 07:20 | NUR ---
NURSE HAND-OFF REPORT: Important Events on Shift:PT PULLED IV, REINSERTED AND PULLED OUT IV AGAIN AT 0715 Patient Status: STABLE Diet: RENAL Pending Orders: [] Pending Results/Labs:[] Pending MD notification:[] Latest Vital Signs: Temperature 98.2 , Pulse 75 , B/P 150 /74 , Respiratory Rate 22 , O2 SAT 93 , Nasal Cannula, O2 Flow Rate 2.0 . Vital Sign Comment: [] EKG Rhythm: Sinus Rhythm Rhythm change?: Y MD Notified?: N - MD Response: Latest Ryan Fall Score: 60 Fall Risk: High Risk Safety Measures: Call light Within Reach, Bed Alarm Zone 1, Side Rails Side Rails x2, Bed position Low and Locked. Fall Precautions: Yellow Socks Yellow Gown Patient Fall Education Report given to BELKIS RAMOS.
--- NOTE | 2020-03-18 07:50 | NUR ---
NURSE NOTES: Notified Young, dialysis nurse for the HD to take place today, consent signed and in the chart.
[2020-03-18 08:13] LABS: ALBUMIN 2.6 G/DL (3.4-5.0); ALBUMIN/GLOBULIN RATIO 0.7 (1.0-2.7); BILIRUBIN,TOTAL 0.3 MG/DL (0.2-1.0); CALCIUM 8.6 MG/DL (8.5-10.1); CREATININE 4.5 MG/DL (0.55-1.30); PHOSPHORUS 5.1 MG/DL (2.5-4.9); POTASSIUM 4.2 MMOL/L (3.5-5.1)
[2020-03-18] MEDS: Vitamin B Complex Tab ORAL SCH (09:00)
[2020-03-18] MEDS: Lisinopril 2.5mg tab ORAL SCH (09:00)
[2020-03-18] MEDS: Heparin 5000 units/ml inj SUBQ SCH ×2 (09:00→18:14)
--- NOTE | 2020-03-18 09:03 | Nephrology Progress Note ---
Assessment/Plan Problem List: (1) Renal failure (ARF), acute on chronic (2) Hypoxia (3) CHF (congestive heart failure) (4) COPD (chronic obstructive pulmonary disease) (5) HTN (hypertension) (6) Hyperkalemia Assessment Acute renal failure Possible underlying chronic kidney disease Hyperkalemia Respiratory failure: Combination of diastolic CHF, COPD, possible pneumonia Hypertension Diabetes mellitus Negative COVID-19 rapid test Plan March 18: Labs reviewed. Patient has a tunneled catheter. Will dialyze today. Continue placement process for outpatient hemodialysis. Discussed with RN. March 17: Labs reviewed. Serum creatinine rising. Patient needs to be continue on dialysis. Regretfully he pulled out his femoral dialysis catheter. Discussed with RN. Patient need to be consented for placement of tunneled dialysis catheter for continued dialysis. If needed, psychiatric clearance regarding if the patient is mentally fit to make decisions. March 16: Last hemodialysis March 14. Clinically doing well. Serum creatinine rising. Today creatinine is 3.7. Will check labs tomorrow if further rise of creatinine will arrange for dialysis and placement of the catheter for the outpatient dialysis due to acute on chronic renal failure. March 15: Last HD 03/14. Doing well. continue to monitor renal parameters . Discussed with Dr Caceres. Continue to rest March 14: Dialyzed March 12. Serum creatinine today 4.2. Will do dialysis and ultrafiltration today. Continue per pulmonary. March 13: Dialyzed yesterday. Serum creatinine 3.8 unchanged. Continue per pulmonary. Hemodialysis as needed. Continue to monitor renal parameters. March 12: Due for dialysis today. Discussed with pulmonary, patient due for right pleural effusion tap today. Labs reviewed. Continue per current management. Continue to monitor renal parameters. March 11: Patient was dialyzed 2 days in a row with total of 7 L fluid removal. Today's ABG still suggestive of hypoxia. Patient uncooperative and does not keep the oxygen mask on. Labs reviewed. Renal parameters reasonable. Will attempt dialysis again tomorrow. Will discuss with Dr. Caceres with regard to possible initiation of steroid's, if underlying COPD is a major cause for the current pulmonary state. March 10: Patient was dialyzed yesterday. Over 3 L ultrafiltration done. Patient will be dialyzed again today with ultrafiltration. Continue to monitor pulmonary status. Discussed with . March 09: Seen this morning during hemodialysis. Patient has a femoral catheter for dialysis access. Aim to ultrafiltrate 3 to 4 L. Postdialysis will stop IV Lasix. We will continue to monitor urine output and renal parameters. Phos binders ordered. Per orders. Ultrasound results noted. Previously: Since diuretic treatment is not working, and the patient is volume overloaded and has difficulty breathing with lower extremity edema and possible ascites will aim to dialyze and do ultrafiltration. Adjust blood pressure medication. Kidney ultrasound, results noted Flomax twice daily Adjust the diet. Change to renal Pulmonary toilet Afterload preload reduction Avoid nephrotoxic's Subjective ROS Limited/Unobtainable: No Constitutional: Reports: malaise, weakness Objective Objective Last 24 Hour Vital Signs Date Time Temp Pulse Resp B/P (MAP) Pulse Ox O2 Delivery O2 Flow Rate FiO2 03/18/20 05:59 150/74 03/18/20 04:00 64 03/18/20 04:00 98.2 75 22 156/69 (98) 93 03/18/20 00:00 66 03/18/20 00:00 98.6 86 24 131/79 (96) 96 03/17/20 21:42 130/66 03/17/20 21:30 79 20 98 Nasal Cannula 3.0 32 76 20 94 03/17/20 21:00 Nasal Cannula 2.0 03/17/20 20:00 71 03/17/20 20:00 98.7 74 24 132/58 (82) 93 03/17/20 19:19 94 Nasal Cannula 3.0 32 03/17/20 16:00 82 03/17/20 16:00 98.8 90 20 154/55 (88) 93 03/17/20 14:17 75 17 3.0 03/17/20 13:41 134/104 03/17/20 12:00 97.8 113 20 158/96 (116) 98 03/17/20 12:00 82 03/17/20 10:51 166/73 Intake and Output 03/17/20 03/18/20 19:00 07:00 Intake Total 510 ml 350 ml Output Total 650 ml 300 ml Balance -140 ml 50 ml Intake Oral 510 ml 350 ml Output Urine Total 650 ml 300 ml # Bowel Movements 1 Laboratory Tests 03/17/20 10:00: Prothrombin Time 11.2, Prothromb Time International Ratio 1.0, Activated Partial Thromboplast Time 26 03/17/20 13:29: POC Whole Blood Glucose [Pending] 03/17/20 17:16: POC Whole Blood Glucose 129H 03/17/20 21:48: POC Whole Blood Glucose 163H 03/18/20 06:02: POC Whole Blood Glucose 100 03/18/20 06:36: Sodium Level 136, Potassium Level 4.2, Chloride Level 100, Carbon Dioxide Level 28, Anion Gap 8, Blood Urea Nitrogen 103H, Creatinine 4.5H, Estimat Glomerular Filtration Rate 15.9, Glucose Level 103#, Calcium Level 8.6, Phosphorus Level 5.1H, Magnesium Level 2.7H, Total Bilirubin 0.3, Aspartate Amino Transf (AST /SGOT) 26, Alanine Aminotransferase (ALT/SGPT) 32, Alkaline Phosphatase 85, C- Reactive Protein, Quantitative 1.0H, Total Protein 6.5, Albumin 2.6L, Globulin 3.9, Albumin/Globulin Ratio 0.7L Height (Feet): 5 Height (Inches): 9.00 Weight (Pounds): 228 General Appearance: mild distress Cardiovascular: normal rate Respiratory/Chest: decreased breath sounds Abdomen: distended Rene Singh MD Mar 18, 2020 09:03
--- NOTE | 2020-03-18 09:18 | Pulmonology Progress Note ---
Subjective ROS Limited/Unobtainable: No Interval Events: Feeling better; On nasal o2 Constitutional: Reports: no symptoms HEENT: Repors: no symptoms Respiratory: Reports: no symptoms Cardiovascular: Reports: no symptoms Gastrointestinal/Abdominal: Reports: no symptoms Genitourinary: Reports: no symptoms Allergies: Coded Allergies: PENICILLINS (Verified Allergy, Unknown, 03/06/20) Uncoded Allergies: SEAFOOD (Allergy, Unknown, 03/06/20) All Systems: reviewed and negative except above Objective Last 24 Hour Vital Signs Date Time Temp Pulse Resp B/P (MAP) Pulse Ox O2 Delivery O2 Flow Rate FiO2 03/18/20 09:02 92 Nasal Cannula 2.0 28 03/18/20 05:59 150/74 03/18/20 04:00 64 03/18/20 04:00 98.2 75 22 156/69 (98) 93 03/18/20 00:00 66 03/18/20 00:00 98.6 86 24 131/79 (96) 96 03/17/20 21:42 130/66 03/17/20 21:30 79 20 98 Nasal Cannula 3.0 32 76 20 94 03/17/20 21:00 Nasal Cannula 2.0 03/17/20 20:00 71 03/17/20 20:00 98.7 74 24 132/58 (82) 93 03/17/20 19:19 94 Nasal Cannula 3.0 32 03/17/20 16:00 82 03/17/20 16:00 98.8 90 20 154/55 (88) 93 03/17/20 14:17 75 17 3.0 03/17/20 13:41 134/104 03/17/20 12:00 97.8 113 20 158/96 (116) 98 03/17/20 12:00 82 03/17/20 10:51 166/73 Intake and Output 03/17/20 03/18/20 19:00 07:00 Intake Total 510 ml 350 ml Output Total 650 ml 300 ml Balance -140 ml 50 ml Intake Oral 510 ml 350 ml Output Urine Total 650 ml 300 ml # Bowel Movements 1 General Appearance: no acute distress HEENT: normocephalic Respiratory: chest wall non-tender, decreased breath sounds Cardiovascular: normal peripheral pulses, normal rate Abdomen: normal bowel sounds Laboratory Tests 03/17/20 10:00: Prothrombin Time 11.2, Prothromb Time International Ratio 1.0, Activated Partial Thromboplast Time 26 03/17/20 13:29: POC Whole Blood Glucose [Pending] 03/17/20 17:16: POC Whole Blood Glucose 129H 03/17/20 21:48: POC Whole Blood Glucose 163H 03/18/20 06:02: POC Whole Blood Glucose 100 03/18/20 06:36: Sodium Level 136, Potassium Level 4.2, Chloride Level 100, Carbon Dioxide Level 28, Anion Gap 8, Blood Urea Nitrogen 103H, Creatinine 4.5H, Estimat Glomerular Filtration Rate 15.9, Glucose Level 103#, Calcium Level 8.6, Phosphorus Level 5.1H, Magnesium Level 2.7H, Total Bilirubin 0.3, Aspartate Amino Transf (AST/SGOT) 26, Alanine Aminotransferase (ALT/SGPT) 32, Alkaline Phosphatase 85, C-Reactive Protein, Quantitative 1.0H, Total Protein 6.5, Albumin 2.6L, Globulin 3.9, Albumin/Globulin Ratio 0.7L Current Medications Medications (Trade) Dose Ordered Sig/Melissa Route PRN Reason Start Time Stop Time Status Last Admin Dose Admin Allopurinol (allopurinoL) 300 mg DAILY ORAL 03/09/20 14:30 04/08/20 14:29 03/17/20 10:51 Budesonide (Pulmicort) 0.25 mg EVERY 12 HOURS HHN 03/06/20 21:00 06/04/20 20:59 03/17/20 21:29 Chlorhexidine Gluconate (Cherry-Hex 2%) 1 applic DAILY@1999 TOPIC 03/17/20 20:00 06/15/20 19:59 03/17/20 20:00 Chlorhexidine Gluconate (Cherry-Hex 2%) 1 applic DAILY@1999 TOPIC 03/10/20 21:45 06/08/20 21:44 03/17/20 21:41 Citalopram Hydrobromide (CeleXA) 20 mg DAILY ORAL 03/10/20 09:00 04/09/20 08:59 03/17/20 10:52 Clonidine HCl (Catapres Tab) 0.1 mg Q4H PRN ORAL SBP>170 03/06/20 16:15 06/04/20 16:14 Dextrose (Dextrose 50%) 25 ml Q30M PRN IV Hypoglycemia 03/13/20 16:30 06/11/20 16:29 Dextrose (Dextrose 50%) 50 ml Q30M PRN IV Hypoglycemia 03/13/20 16:30 06/11/20 16:29 Diphenhydramine HCl (Benadryl) 50 mg Q6H PRN ORAL Itching 03/06/20 19:00 04/05/20 18:59 Docusate Sodium (Colace) 100 mg THREE TIMES A DAY ORAL 03/08/20 13:00 04/07/20 12:59 03/17/20 17:33 Guaifenesin/ Dextromethorphan (Robitussin DM Syrup) 10 ml Q4H PRN ORAL For Cough 03/06/20 19:00 06/04/20 18:59 03/12/20 00:51 Heparin Sodium (Porcine) (Heparin 5000 units/ml) 5,000 units BID SUBQ 03/07/20 09:00 04/21/20 08:59 03/16/20 18:43 Heparin Sodium/ Sodium Chloride (Heparin 1000 units/500ml Premix) 1,000 unit ONCE PRN INJ RADIOLOGY PROCEDURE 03/17/20 09:30 03/19/20 09:29 Hydralazine HCl (Apresoline) 50 mg Q8HR ORAL 03/11/20 14:00 06/04/20 17:59 03/18/20 05:59 Insulin Aspart (NovoLOG) BEFORE MEALS AND HS SUBQ 03/13/20 16:30 06/11/20 16:29 03/17/20 22:25 Insulin Aspart (NovoLOG) 10 units NOVOTIAC SUBQ 03/17/20 11:50 06/13/20 06:29 03/17/20 13:38 Insulin Detemir (Levemir) 16 units BID SUBQ 03/17/20 09:00 06/13/20 08:59 03/17/20 17:35 Lidocaine/ Epinephrine (Lidocaine 1%/ Epi 0.01mg 20ml) 1 ml ONCE PRN INJ RADIOLOGY PROCEDURE 03/17/20 09:30 03/19/20 09:29 Lisinopril (ZestriL) 5 mg DAILY ORAL 03/17/20 09:00 04/16/20 08:59 03/17/20 10:51 Lorazepam (Ativan) 1 mg Q6H PRN ORAL For Anxiety 03/15/20 11:47 03/22/20 11:46 Methylprednisolone Sodium Succinate (Solu-MEDROL) 40 mg EVERY 6 HOURS IVP 03/11/20 12:00 06/09/20 11:59 03/18/20 05:59 Pantoprazole (Protonix) 40 mg EVERY 12 HOURS ORAL 03/08/20 21:00 04/07/20 20:59 03/17/20 21:42 Phenol/Menthol (Chloraseptic) 1 spray TIDPRN PRN ORAL For Pain 03/06/20 19:00 06/04/20 18:59 Sevelamer Carbonate (Renvela) 1,600 mg THREE TIMES A DAY ORAL 03/09/20 09:00 06/07/20 08:59 03/17/20 17:33 Tamsulosin HCl (Flomax) 0.4 mg BID ORAL 03/08/20 11:30 04/07/20 11:29 03/17/20 17:33 Vitamin B Complex (Vitamin B Complex) 1 tab DAILY ORAL 03/07/20 09:00 06/05/20 08:59 03/17/20 09:00 Assessment/Plan Assessment/Plan IMPRESSION: 1. Improved pulmonary edema 2. Hypertension. 3. Diabetes mellitus. 4. Renal failure. 5. COPD. 6. Negative COVID 19 rapid test DISCUSSION: Continue breathing treatments with albuterol and Atrovent Negative COVID 19 Broad-spectrum antibiotics will be given. I will follow carefully. HD per renal Pulled oput groin line Needs Permacath per renal Oxygenation improved Currently on 2-4L/O2via nasal canulae; saturating 95% Jie Rivera Omar Syed MD Mar 18, 2020 09:18
--- NOTE | 2020-03-18 09:30 | NUR ---
NURSE NOTES: Dr. Serna made aware of SR BBB cardiac rhythm, no new orders were given.
--- NOTE | 2020-03-18 09:40 | NUR ---
NURSE NOTES: Clarifying whether labs were drawn for this patient. Called laboratory, Rajani stated she will call back.
--- NOTE | 2020-03-18 09:48 | NUR ---
NURSE NOTES: Dr. Serna gave an order for this patient to be transferred to med-surg. Noted and will carry out.
[2020-03-18] MEDS: Docusate 100mg cap ORAL SCH ×3 (09:51→18:13)
[2020-03-18] MEDS: Tamsulosin 0.4mg cap ORAL SCH ×2 (09:51→18:13)
[2020-03-18] MEDS: Citalopram Hydrobromide 10mg Tab ORAL SCH (09:51)
[2020-03-18] MEDS: Budesonide HHN 0.25mg/2ml ud HHN SCH ×2 (09:58→22:14)
--- NOTE | 2020-03-18 10:24 | Cardiac Electrophysiology PN ---
Assessment/Plan Assessment/Plan 1. Severe bilateral lower extremity edema with shortness of breath and BNP of almost 4000. EF 60%. Due to CHF due to diastolic dysfunction and renal failure on HD. 2. Hypertension. On HD , hydralazine 50 mg tid and p.r.n. clonidine. 3. Renal failure, creatinine was 3.9 that increased to >4 with BUN 80. Started on HD Pulled out his Right groin Janusz cath S/P PermCath placement 03/17/20 4. COPD. DW RN DW Dr. Singh. Subjective Subjective No CP. ECG SR with RBBB, LAFB Got RFV Janusz and had HD 4 liters on 03/09 and 3 liters on 03/10 On Nasal Cannula. Pulled out his Right groin Janusz cath S/P Right chest PermCath placement yesterday. HD pending today Objective Last 24 Hour Vital Signs Date Time Temp Pulse Resp B/P (MAP) Pulse Ox O2 Delivery O2 Flow Rate FiO2 03/18/20 09:59 82 20 100 Nasal Cannula 2.0 28 76 18 96 03/18/20 09:02 92 Nasal Cannula 2.0 28 03/18/20 09:00 152/74 03/18/20 08:00 77 03/18/20 08:00 98.0 75 20 152/74 (100) 97 03/18/20 05:59 150/74 03/18/20 04:00 64 03/18/20 04:00 98.2 75 22 156/69 (98) 93 03/18/20 00:00 66 03/18/20 00:00 98.6 86 24 131/79 (96) 96 03/17/20 21:42 130/66 03/17/20 21:30 79 20 98 Nasal Cannula 3.0 32 76 20 94 03/17/20 21:00 Nasal Cannula 2.0 03/17/20 20:00 71 03/17/20 20:00 98.7 74 24 132/58 (82) 93 03/17/20 19:19 94 Nasal Cannula 3.0 32 03/17/20 16:00 82 03/17/20 16:00 98.8 90 20 154/55 (88) 93 03/17/20 14:17 75 17 3.0 03/17/20 13:41 134/104 03/17/20 12:00 97.8 113 20 158/96 (116) 98 03/17/20 12:00 82 03/17/20 10:51 166/73 Intake and Output 03/17/20 03/18/20 19:00 07:00 Intake Total 510 ml 350 ml Output Total 650 ml 300 ml Balance -140 ml 50 ml Intake Oral 510 ml 350 ml Output Urine Total 650 ml 300 ml # Bowel Movements 1 Laboratory Tests Test 03/17/20 13:29 03/17/20 17:16 03/17/20 21:48 03/18/20 06:02 POC Whole Blood Glucose Pending 129 MG/DL (74-106) H 163 MG/DL (74-106) H 100 MG/DL (74-106) Test 03/18/20 06:36 Sodium Level 136 MMOL/L (136-145) Potassium Level 4.2 MMOL/L (3.5-5.1) Chloride Level 100 MMOL/L (98-107) Carbon Dioxide Level 28 MMOL/L (21-32) Anion Gap 8 mmol/L (5-15) Blood Urea Nitrogen 103 mg/dL (7-18) H Creatinine 4.5 MG/DL (0.55-1.30) H Estimat Glomerular Filtration Rate 15.9 mL/min (>60) Glucose Level 103 MG/DL (74-106) # Calcium Level 8.6 MG/DL (8.5-10.1) Phosphorus Level 5.1 MG/DL (2.5-4.9) H Magnesium Level 2.7 MG/DL (1.8-2.4) H Total Bilirubin 0.3 MG/DL (0.2-1.0) Aspartate Amino Transf (AST/SGOT) 26 U/L (15-37) Alanine Aminotransferase (ALT/SGPT) 32 U/L (12-78) Alkaline Phosphatase 85 U/L (46-116) C-Reactive Protein, Quantitative 1.0 mg/dL (0.00-0.90) H Total Protein 6.5 G/DL (6.4-8.2) Albumin 2.6 G/DL (3.4-5.0) L Globulin 3.9 g/dL Albumin/Globulin Ratio 0.7 (1.0-2.7) L Objective HEAD AND NECK: Positive JVD. LUNGS: Decreased breath sounds.Right chest PermCath in place CARDIOVASCULAR: Regular S1 and S2 with no gallop. ABDOMEN: Soft. EXTREMITIES: 2+ pitting edema in lower extremities as well as 2+ pitting edema in right arm. Ponce Serna MD Mar 18, 2020 10:24
[2020-03-18] MEDS: Levemir Flexpen SUBQ SCH ×2 (10:37→18:00)
--- NOTE | 2020-03-18 11:12 | General Progress Note ---
Subjective ROS Limited/Unobtainable: Yes Allergies: Coded Allergies: PENICILLINS (Verified Allergy, Unknown, 03/06/20) Uncoded Allergies: SEAFOOD (Allergy, Unknown, 03/06/20) Objective Last 24 Hour Vital Signs Date Time Temp Pulse Resp B/P (MAP) Pulse Ox O2 Delivery O2 Flow Rate FiO2 03/18/20 09:59 82 20 100 Nasal Cannula 2.0 28 76 18 96 03/18/20 09:02 92 Nasal Cannula 2.0 28 03/18/20 09:00 152/74 03/18/20 08:00 77 03/18/20 08:00 98.0 75 20 152/74 (100) 97 03/18/20 05:59 150/74 03/18/20 04:00 64 03/18/20 04:00 98.2 75 22 156/69 (98) 93 03/18/20 00:00 66 03/18/20 00:00 98.6 86 24 131/79 (96) 96 03/17/20 21:42 130/66 03/17/20 21:30 79 20 98 Nasal Cannula 3.0 32 76 20 94 03/17/20 21:00 Nasal Cannula 2.0 03/17/20 20:00 71 03/17/20 20:00 98.7 74 24 132/58 (82) 93 03/17/20 19:19 94 Nasal Cannula 3.0 32 03/17/20 16:00 82 03/17/20 16:00 98.8 90 20 154/55 (88) 93 03/17/20 14:17 75 17 3.0 03/17/20 13:41 134/104 03/17/20 12:00 97.8 113 20 158/96 (116) 98 03/17/20 12:00 82 Intake and Output 03/17/20 03/18/20 19:00 07:00 Intake Total 510 ml 350 ml Output Total 650 ml 300 ml Balance -140 ml 50 ml Intake Oral 510 ml 350 ml Output Urine Total 650 ml 300 ml # Bowel Movements 1 Laboratory Tests 03/17/20 13:29: POC Whole Blood Glucose [Pending] 03/17/20 17:16: POC Whole Blood Glucose 129H 03/17/20 21:48: POC Whole Blood Glucose 163H 03/18/20 06:02: POC Whole Blood Glucose 100 03/18/20 06:36: Sodium Level 136, Potassium Level 4.2, Chloride Level 100, Carbon Dioxide Level 28, Anion Gap 8, Blood Urea Nitrogen 103H, Creatinine 4.5H, Estimat Glomerular Filtration Rate 15.9, Glucose Level 103#, Calcium Level 8.6, Phosphorus Level 5.1H, Magnesium Level 2.7H, Total Bilirubin 0.3, Aspartate Amino Transf (AST/SGOT) 26, Alanine Aminotransferase (ALT/SGPT) 32, Alkaline Phosphatase 85, C-Reactive Protein, Quantitative 1.0H, Total Protein 6.5, Albumin 2.6L, Globulin 3.9, Albumin/Globulin Ratio 0.7L 03/18/20 10:32: POC Whole Blood Glucose 232H Height (Feet): 5 Height (Inches): 9.00 Weight (Pounds): 228 Assessment/Plan Problem List: (1) COPD (chronic obstructive pulmonary disease) ICD Codes: J44.9 - Chronic obstructive pulmonary disease, unspecified SNOMED: [id number] Qualifiers: Qualified Codes: J44.1 - Chronic obstructive pulmonary disease with (acute) exacerbation (2) CHF (congestive heart failure) ICD Codes: I50.9 - Heart failure, unspecified SNOMED: 08574975 Qualifiers: Qualified Codes: I50.9 - Heart failure, unspecified (3) Hypoxia ICD Codes: R09.02 - Hypoxemia SNOMED: 295039117 (4) Renal failure (ARF), acute on chronic ICD Codes: N17.9 - Acute kidney failure, unspecified; N18.9 - Chronic kidney disease, unspecified SNOMED: 106241723 Qualifiers: Qualified Codes: N17.9 - Acute kidney failure, unspecified; N18.4 - Chronic kidney disease, stage 4 (severe) Status: progressing, deteriorating Assessment/Plan: pulled out jia cath dialysis access in place now will get diaylsis today chf and copd no wheezing sob is much improved John Chavez MD Mar 18, 2020 11:12
--- NOTE | 2020-03-18 11:13 | Infectious Diseases Prog Note ---
Assessment/Plan Assessment/Plan IMPRESSION: 1. Pneumonia. treated 2. COPD. 3. Pulmonary edema. 4. CHF. 5. Diabetes mellitus. 6. Hypertension. 7. ESRD 8. Anemia. 9. BPH. 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 Pleural effusion 12. Leukocytosis, steroid related RECOMMENDATION: Observe off of antibiotic Taper steroids Subjective ROS Limited/Unobtainable: No Constitutional: Reports: no symptoms Respiratory: Reports: no symptoms Cardiovascular: Reports: no symptoms, other - had Permacath placement yesterday Allergies: Coded Allergies: PENICILLINS (Verified Allergy, Unknown, 03/06/20) Uncoded Allergies: SEAFOOD (Allergy, Unknown, 03/06/20) Objective Last 24 Hour Vital Signs Date Time Temp Pulse Resp B/P (MAP) Pulse Ox O2 Delivery O2 Flow Rate FiO2 03/18/20 09:59 82 20 100 Nasal Cannula 2.0 28 76 18 96 03/18/20 09:02 92 Nasal Cannula 2.0 28 03/18/20 09:00 152/74 03/18/20 08:00 77 03/18/20 08:00 98.0 75 20 152/74 (100) 97 03/18/20 05:59 150/74 03/18/20 04:00 64 03/18/20 04:00 98.2 75 22 156/69 (98) 93 03/18/20 00:00 66 03/18/20 00:00 98.6 86 24 131/79 (96) 96 03/17/20 21:42 130/66 03/17/20 21:30 79 20 98 Nasal Cannula 3.0 32 76 20 94 03/17/20 21:00 Nasal Cannula 2.0 03/17/20 20:00 71 03/17/20 20:00 98.7 74 24 132/58 (82) 93 03/17/20 19:19 94 Nasal Cannula 3.0 32 03/17/20 16:00 82 03/17/20 16:00 98.8 90 20 154/55 (88) 93 03/17/20 14:17 75 17 3.0 03/17/20 13:41 134/104 03/17/20 12:00 97.8 113 20 158/96 (116) 98 03/17/20 12:00 82 Height (Feet): 5 Height (Inches): 9.00 Weight (Pounds): 228 HEENT: mucous membranes moist Respiratory/Chest: lungs clear Cardiovascular: normal rate Abdomen: soft, non tender Neurologic/Psychiatric: alert, oriented x 3, responsive Laboratory Tests Test 03/17/20 13:29 03/17/20 17:16 03/17/20 21:48 03/18/20 06:02 POC Whole Blood Glucose Pending 129 MG/DL (74-106) H 163 MG/DL (74-106) H 100 MG/DL (74-106) Test 03/18/20 06:36 03/18/20 10:32 Sodium Level 136 MMOL/L (136-145) Potassium Level 4.2 MMOL/L (3.5-5.1) Chloride Level 100 MMOL/L (98-107) Carbon Dioxide Level 28 MMOL/L (21-32) Anion Gap 8 mmol/L (5-15) Blood Urea Nitrogen 103 mg/dL (7-18) H Creatinine 4.5 MG/DL (0.55-1.30) H Estimat Glomerular Filtration Rate 15.9 mL/min (>60) Glucose Level 103 MG/DL (74-106) # Calcium Level 8.6 MG/DL (8.5-10.1) Phosphorus Level 5.1 MG/DL (2.5-4.9) H Magnesium Level 2.7 MG/DL (1.8-2.4) H Total Bilirubin 0.3 MG/DL (0.2-1.0) Aspartate Amino Transf (AST/SGOT) 26 U/L (15-37) Alanine Aminotransferase (ALT/SGPT) 32 U/L (12-78) Alkaline Phosphatase 85 U/L (46-116) C-Reactive Protein, Quantitative 1.0 mg/dL (0.00-0.90) H Total Protein 6.5 G/DL (6.4-8.2) Albumin 2.6 G/DL (3.4-5.0) L Globulin 3.9 g/dL Albumin/Globulin Ratio 0.7 (1.0-2.7) L POC Whole Blood Glucose 232 MG/DL (74-106) H Current Medications Medications (Trade) Dose Ordered Sig/Melissa Route PRN Reason Start Time Stop Time Status Last Admin Dose Admin Allopurinol (allopurinoL) 300 mg DAILY ORAL 03/09/20 14:30 04/08/20 14:29 03/18/20 09:50 Budesonide (Pulmicort) 0.25 mg EVERY 12 HOURS HHN 03/06/20 21:00 06/04/20 20:59 03/18/20 09:58 Chlorhexidine Gluconate (Cherry-Hex 2%) 1 applic DAILY@1999 TOPIC 03/17/20 20:00 06/15/20 19:59 03/17/20 20:00 Chlorhexidine Gluconate (Cherry-Hex 2%) 1 applic DAILY@1999 TOPIC 03/10/20 21:45 06/08/20 21:44 03/17/20 21:41 Citalopram Hydrobromide (CeleXA) 20 mg DAILY ORAL 03/10/20 09:00 04/09/20 08:59 03/18/20 09:51 Clonidine HCl (Catapres Tab) 0.1 mg Q4H PRN ORAL SBP>170 03/06/20 16:15 06/04/20 16:14 Dextrose (Dextrose 50%) 25 ml Q30M PRN IV Hypoglycemia 03/13/20 16:30 06/11/20 16:29 Dextrose (Dextrose 50%) 50 ml Q30M PRN IV Hypoglycemia 03/13/20 16:30 06/11/20 16:29 Diphenhydramine HCl (Benadryl) 50 mg Q6H PRN ORAL Itching 03/06/20 19:00 04/05/20 18:59 Docusate Sodium (Colace) 100 mg THREE TIMES A DAY ORAL 03/08/20 13:00 04/07/20 12:59 03/18/20 09:51 Guaifenesin/ Dextromethorphan (Robitussin DM Syrup) 10 ml Q4H PRN ORAL For Cough 03/06/20 19:00 06/04/20 18:59 03/12/20 00:51 Heparin Sodium (Porcine) (Heparin 5000 units/ml) 5,000 units BID SUBQ 03/07/20 09:00 04/21/20 08:59 03/16/20 18:43 Heparin Sodium/ Sodium Chloride (Heparin 1000 units/500ml Premix) 1,000 unit ONCE PRN INJ RADIOLOGY PROCEDURE 03/17/20 09:30 03/19/20 09:29 Hydralazine HCl (Apresoline) 50 mg Q8HR ORAL 03/11/20 14:00 06/04/20 17:59 03/18/20 05:59 Insulin Aspart (NovoLOG) BEFORE MEALS AND HS SUBQ 03/13/20 16:30 06/11/20 16:29 03/18/20 10:38 Insulin Aspart (NovoLOG) 10 units NOVOTIAC SUBQ 03/17/20 11:50 06/13/20 06:29 03/17/20 13:38 Insulin Detemir (Levemir) 16 units BID SUBQ 03/17/20 09:00 06/13/20 08:59 03/18/20 10:37 Lidocaine/ Epinephrine (Lidocaine 1%/ Epi 0.01mg 20ml) 1 ml ONCE PRN INJ RADIOLOGY PROCEDURE 03/17/20 09:30 03/19/20 09:29 Lisinopril (ZestriL) 5 mg DAILY ORAL 03/17/20 09:00 04/16/20 08:59 03/17/20 10:51 Lorazepam (Ativan) 1 mg Q6H PRN ORAL For Anxiety 03/15/20 11:47 03/22/20 11:46 Methylprednisolone Sodium Succinate (Solu-MEDROL) 40 mg EVERY 6 HOURS IVP 03/11/20 12:00 06/09/20 11:59 03/18/20 05:59 Pantoprazole (Protonix) 40 mg EVERY 12 HOURS ORAL 03/08/20 21:00 04/07/20 20:59 03/18/20 09:50 Phenol/Menthol (Chloraseptic) 1 spray TIDPRN PRN ORAL For Pain 03/06/20 19:00 06/04/20 18:59 Sevelamer Carbonate (Renvela) 1,600 mg THREE TIMES A DAY ORAL 03/09/20 09:00 06/07/20 08:59 03/18/20 09:51 Tamsulosin HCl (Flomax) 0.4 mg BID ORAL 03/08/20 11:30 04/07/20 11:29 03/18/20 09:51 Vitamin B Complex (Vitamin B Complex) 1 tab DAILY ORAL 03/07/20 09:00 06/05/20 08:59 03/18/20 09:00 Brett Pleitez MD Mar 18, 2020 11:13
--- NOTE | 2020-03-18 11:30 | NUR ---
NURSE NOTES: tarp repairer removed per Dr. Serna off-tele order and transfer to [facility] order. Gave cardiac box to charge histotechnologistCristela moreira.
--- NOTE | 2020-03-18 12:03 | NUR ---
DISCHARGE PLANNING PATIENT HAS BEEN ACCEPTED AT [facility] T; [phone] F: [phone] CHAIR TIME: MWF 4:30 PM THEY WILL NOT BE ABLE TO START DIALYSIS ON THIS PATIENT UNTIL AFTER SUNDAY DR VASQUEZ HAS BEEN UPDATED
--- NOTE | 2020-03-18 16:50 | NUR ---
NURSE HAND-OFF REPORT: Important Events on Shift: Last BGL 94, HD today output 2L, BP 132/65, asymptomatic, stable condition, on 2L nasal cannula Patient Status: full code, stable condition Diet: renal TRANSFERRED TO , 419-1, without any incident, patient in bed and safe and sound, alert and oriented x4, SOB improved Pending Orders: [] Pending Results/Labs:[] Pending MD notification:[] Latest Vital Signs: Temperature 97.7 , Pulse 83 , B/P 127 /67 , Respiratory Rate 20 , O2 SAT 96 , Nasal Cannula, O2 Flow Rate 2.0 . Vital Sign Comment: [] EKG Rhythm: SR w BBB Rhythm change?: N MD Notified?: N - MD Response: Latest Ryan Fall Score: 60 Fall Risk: High Risk Safety Measures: Call light Within Reach, Bed Alarm Zone 1, Side Rails Side Rails x2, Bed position Low and Locked. Fall Precautions: Yellow Socks Yellow Gown Patient Fall Education Report given to Benjy Shanks RN.
[2020-03-18] MEDS ORDERED: LORazepam Inj 2mg/ml 1ml IM SCH (18:00)
[2020-03-18] MEDS ORDERED: DiphenhydrAMINE 50mg/ml Inj IM SCH (18:00)
[2020-03-18] MEDS ORDERED: Haloperidol 5mg/ml Inj IM SCH (18:00)
--- NOTE | 2020-03-18 19:34 | NUR ---
NURSE HAND-OFF: Important Events on Shift:Patient transferred from [facility]. Patient is non-cooperative, wanders, disconnects from oxygen. Repeated reminders and re-orient attempts unsuccessful. Patient given ativan, haldol, and benadryl and patient continues to get out of bed. Side rails up x 3. Informed Ganesh Mendieta RN, charge that patient continues to get out of bed. Patient Status: Patient is disoriented and combative. Diet: Renal Pending Orders: N/A Pending Results/Labs:N/A Pending MD notification:N/A Latest Vital Signs: Temperature 97.7 , Pulse 75 , B/P 138 /79 , Respiratory Rate 20 , O2 SAT 97 , Nasal Cannula, O2 Flow Rate 2.0 . Vital Sign Comment: Stable Latest Ryan Fall Score: 60 Fall Risk: High Risk Safety Measures: Call light Within Reach, Bed Alarm Zone 1, Side Rails Side Rails x2, Bed position Low and Locked. Fall Precautions: Yellow Socks Yellow Gown Patient Fall Education Report given to Avelina Muhammad RN.
--- NOTE | 2020-03-18 19:54 | NUR ---
NURSE NOTES: Patient is confused, trying to get out of bed repeatedly. When asked what he needs, patient unable to give coherent reason. On nasal cannula 2L, patient continues to remove it. Rechecked O2 sat: 96%. Will continue to reorient and closely monitor. Right upper chest omi cath noted. Dressing c/d/i. RICHARD IV patent and intact. Will continue plan of care.
[2020-03-18] MEDS: Dyna-Hex 2% Top Sol 2oz TOPIC SCH ×2 (20:00→21:14)
[2020-03-18] MEDS: LORazepam 1mg tab ORAL PRN (21:34)
--- NOTE | 2020-03-18 21:35 | NUR ---
NURSE NOTES: Patient remains anxious, agitated/restless, removing oxygen and attempting to climb out of bed repeatedly. RN provided reorientation and therapeutic communication several times but unsuccessful. PRN Ativan administered as ordered. VSS. Bed alarm on zone 2. Will continue to monitor the patient closely.
--- NOTE | 2020-03-18 23:37 | Psychiatric Progress Note ---
Psychiatry Progress Note Psychiatry Progress Note Subjective the pt is having anxiety compliant no behavioral issues the pt has capacity to give consent. Medications Current Medications Medications (Trade) Dose Ordered Sig/Melissa Route PRN Reason Start Time Stop Time Status Last Admin Dose Admin Allopurinol (allopurinoL) 300 mg DAILY ORAL 03/09/20 14:30 04/08/20 14:29 03/18/20 09:50 Budesonide (Pulmicort) 0.25 mg EVERY 12 HOURS HHN 03/06/20 21:00 06/04/20 20:59 03/18/20 22:14 Chlorhexidine Gluconate (Cherry-Hex 2%) 1 applic DAILY@1999 TOPIC 03/17/20 20:00 06/15/20 19:59 03/17/20 20:00 Chlorhexidine Gluconate (Cherry-Hex 2%) 1 applic DAILY@1999 TOPIC 03/10/20 21:45 06/08/20 21:44 03/18/20 21:14 Citalopram Hydrobromide (CeleXA) 20 mg DAILY ORAL 03/10/20 09:00 04/09/20 08:59 03/18/20 09:51 Clonidine HCl (Catapres Tab) 0.1 mg Q4H PRN ORAL SBP>170 03/06/20 16:15 06/04/20 16:14 Dextrose (Dextrose 50%) 25 ml Q30M PRN IV Hypoglycemia 03/13/20 16:30 06/11/20 16:29 Dextrose (Dextrose 50%) 50 ml Q30M PRN IV Hypoglycemia 03/13/20 16:30 06/11/20 16:29 Diphenhydramine HCl (Benadryl) 50 mg Q6H PRN ORAL Itching 03/06/20 19:00 04/05/20 18:59 Docusate Sodium (Colace) 100 mg THREE TIMES A DAY ORAL 03/08/20 13:00 04/07/20 12:59 03/18/20 18:13 Guaifenesin/ Dextromethorphan (Robitussin DM Syrup) 10 ml Q4H PRN ORAL For Cough 03/06/20 19:00 06/04/20 18:59 03/12/20 00:51 Heparin Sodium (Porcine) (Heparin 5000 units/ml) 5,000 units BID SUBQ 03/07/20 09:00 04/21/20 08:59 03/18/20 18:14 Heparin Sodium/ Sodium Chloride (Heparin 1000 units/500ml Premix) 1,000 unit ONCE PRN INJ RADIOLOGY PROCEDURE 03/17/20 09:30 03/19/20 09:29 Hydralazine HCl (Apresoline) 50 mg Q8HR ORAL 03/11/20 14:00 06/04/20 17:59 03/18/20 21:15 Insulin Aspart (NovoLOG) BEFORE MEALS AND HS SUBQ 03/13/20 16:30 06/11/20 16:29 03/18/20 21:18 Insulin Aspart (NovoLOG) 10 units NOVOTIAC SUBQ 03/17/20 11:50 06/13/20 06:29 03/18/20 11:58 Insulin Detemir (Levemir) 16 units BID SUBQ 03/17/20 09:00 06/13/20 08:59 03/18/20 10:37 Lidocaine/ Epinephrine (Lidocaine 1%/ Epi 0.01mg 20ml) 1 ml ONCE PRN INJ RADIOLOGY PROCEDURE 03/17/20 09:30 03/19/20 09:29 Lisinopril (ZestriL) 5 mg DAILY ORAL 03/17/20 09:00 04/16/20 08:59 03/17/20 10:51 Lorazepam (Ativan) 1 mg Q6H PRN ORAL For Anxiety 03/15/20 11:47 03/22/20 11:46 03/18/20 21:34 Methylprednisolone Sodium Succinate (Solu-MEDROL) 40 mg EVERY 6 HOURS IVP 03/11/20 12:00 06/09/20 11:59 03/18/20 18:13 Pantoprazole (Protonix) 40 mg EVERY 12 HOURS ORAL 03/08/20 21:00 04/07/20 20:59 03/18/20 21:14 Phenol/Menthol (Chloraseptic) 1 spray TIDPRN PRN ORAL For Pain 03/06/20 19:00 06/04/20 18:59 Sevelamer Carbonate (Renvela) 1,600 mg THREE TIMES A DAY ORAL 03/09/20 09:00 06/07/20 08:59 03/18/20 18:13 Tamsulosin HCl (Flomax) 0.4 mg BID ORAL 03/08/20 11:30 04/07/20 11:29 03/18/20 18:13 Vitamin B Complex (Vitamin B Complex) 1 tab DAILY ORAL 03/07/20 09:00 06/05/20 08:59 03/18/20 09:00 Neurological/Psychiatric: Reports: anxiety, depressed, emotional problems Allergies: Coded Allergies: PENICILLINS (Verified Allergy, Unknown, 03/06/20) Uncoded Allergies: SEAFOOD (Allergy, Unknown, 03/06/20) Objective Data Height (Feet): 5 Height (Inches): 9.00 Weight (Pounds): 228 General Appearance: mild distress Mental Status Exam - Mood: anxious Additional Comments: alert and oriented times self, place, and situation. Mood is anxious. Affect is blunted, congruent with mood. Thought process is linear and goal oriented. Thought content, no suicidal or homicidal ideation. Cognition is intact. Insight and judgment is fair. Assessment/Plan [place] I: ASSESSMENT: [place] I Anxiety disorder. [place] II Deferred. [place] III As above. [place] IV Low. [place] V 50. PLAN: 1. We will start the patient on Celexa 20 mg in the morning. 2. Ativan as needed. 3. Provide the patient with reality orientation, supportive therapy, and medication. 4. the pt has capacity to make decisions Status: progressing, deteriorating Status Narrative ASSESSMENT: [place] I Anxiety disorder. [place] II Deferred. [place] III As above. [place] IV Low. [place] V 50. PLAN: 1. We will start the patient on Celexa 20 mg in the morning. 2. Ativan as needed. 3. Provide the patient with reality orientation, supportive therapy, and medication. 4. the pt has capacity to make decisions Assessment/Plan: ASSESSMENT: [place] I Anxiety disorder. [place] II Deferred. [place] III As above. [place] IV Low. [place] V 50. PLAN: 1. We will start the patient on Celexa 20 mg in the morning. 2. Ativan as needed. 3. Provide the patient with reality orientation, supportive therapy, and medication. 4. the pt has capacity to make decisions Kwasi Diaz MD Mar 18, 2020 23:37
[2020-03-19] VITALS (7 sets, daily range): BP systolic 112–169; BP diastolic 68–81
--- NOTE | 2020-03-19 03:43 | NUR ---
NURSE NOTES: WCP taken and uploaded. Dressing c/d/i
[2020-03-19] MEDS: LORazepam 1mg tab ORAL PRN ×2 (05:16→21:27)
[2020-03-19] MEDS: HydrALAZINE 50mg tab ORAL SCH ×3 (05:17→21:25)
--- NOTE | 2020-03-19 05:20 | NUR ---
NURSE NOTES: Patient confused, very restless, anxious/agitated. Continues to try to get out of bed. Removed IV access x2. Reorientation unsuccessful. Ativan PRN administered as ordered. VSS. Bed locked and in lowest position; alarm on zone 2. Will continue to monitor closely.
[2020-03-19] MEDS: Solu-MEDROL 40mg Inj IVP SCH ×5 (05:54→23:18)
[2020-03-19] MEDS: NovoLOG Insulin Flexpen SUBQ SCH ×7 (05:56→20:47)
--- NOTE | 2020-03-19 06:34 | General Progress Note ---
Subjective Allergies: Coded Allergies: PENICILLINS (Verified Allergy, Unknown, 03/06/20) Uncoded Allergies: SEAFOOD (Allergy, Unknown, 03/06/20) All Systems: reviewed and negative except above Subjective events noted glucose values improved Item Value Date Time Bedside Blood Glucose 175 mg/dl H 03/19/20 0559 Bedside Blood Glucose 151 mg/dl H 03/18/20 2118 Bedside Blood Glucose 94 mg/dl 03/18/20 1800 Bedside Blood Glucose 194 mg/dl H 03/18/20 1158 Bedside Blood Glucose 232 mg/dl H 03/18/20 1038 Bedside Blood Glucose 100 mg/dl 03/18/20 0630 Objective Last 24 Hour Vital Signs Date Time Temp Pulse Resp B/P (MAP) Pulse Ox O2 Delivery O2 Flow Rate FiO2 03/19/20 05:46 89 18 133/71 97 03/19/20 05:17 130/78 03/19/20 05:16 94 19 130/78 96 03/19/20 04:00 97.5 81 19 130/78 (95) 96 03/19/20 00:00 97.0 61 18 128/73 (91) 99 03/18/20 22:18 82 18 100 Nasal Cannula 2.0 28 80 18 96 03/18/20 22:04 79 20 140/77 98 03/18/20 21:34 87 22 159/88 97 03/18/20 21:15 158/93 03/18/20 20:19 Nasal Cannula 2.0 03/18/20 20:00 97.3 85 20 158/93 (114) 96 03/18/20 19:20 97 Nasal Cannula 2.0 28 03/18/20 18:39 74 18 136/77 97 03/18/20 18:09 75 20 138/79 97 03/18/20 16:00 97.7 75 20 138/79 (98) 97 03/18/20 14:00 127/67 (87) 03/18/20 14:00 127/67 03/18/20 12:00 97.7 83 20 149/78 (101) 96 03/18/20 09:59 82 20 100 Nasal Cannula 2.0 28 76 18 96 03/18/20 09:02 92 Nasal Cannula 2.0 28 03/18/20 09:00 152/74 03/18/20 09:00 Nasal Cannula 2.0 03/18/20 08:00 77 03/18/20 08:00 98.0 75 20 152/74 (100) 97 Intake and Output 03/18/20 03/19/20 18:59 06:59 Intake Total 60 ml 250 ml Output Total 2000 ml Balance -1940 ml 250 ml Intake Oral 60 ml 250 ml Hemodialysis UF 2000 ml # Bowel Movements 1 1 Laboratory Tests 03/18/20 06:36: Sodium Level 136, Potassium Level 4.2, Chloride Level 100, Carbon Dioxide Level 28, Anion Gap 8, Blood Urea Nitrogen 103H, Creatinine 4.5H, Estimat Glomerular Filtration Rate 15.9, Glucose Level 103#, Calcium Level 8.6, Phosphorus Level 5.1H, Magnesium Level 2.7H, Total Bilirubin 0.3, Aspartate Amino Transf (AST/SGOT) 26, Alanine Aminotransferase (ALT/SGPT) 32, Alkaline Phosphatase 85, C-Reactive Protein, Quantitative 1.0H, Total Protein 6.5, Albumin 2.6L, Globulin 3.9, Albumin/Globulin Ratio 0.7L 03/18/20 10:32: POC Whole Blood Glucose 232H 03/18/20 11:51: POC Whole Blood Glucose 194H 03/18/20 16:12: POC Whole Blood Glucose 94 03/18/20 20:18: POC Whole Blood Glucose [Pending] Height (Feet): 5 Height (Inches): 9.00 Weight (Pounds): 228 General Appearance: no apparent distress Neck: normal alignment Cardiovascular: normal rate Respiratory/Chest: decreased breath sounds Abdomen: normal bowel sounds Objective Current Medications Medications (Trade) Dose Ordered Sig/Melissa Route PRN Reason Start Time Stop Time Status Last Admin Dose Admin Allopurinol (allopurinoL) 300 mg DAILY ORAL 03/09/20 14:30 04/08/20 14:29 03/18/20 09:50 Budesonide (Pulmicort) 0.25 mg EVERY 12 HOURS HHN 03/06/20 21:00 06/04/20 20:59 03/18/20 22:14 Chlorhexidine Gluconate (Cherry-Hex 2%) 1 applic DAILY@1999 TOPIC 03/17/20 20:00 06/15/20 19:59 03/17/20 20:00 Chlorhexidine Gluconate (Cherry-Hex 2%) 1 applic DAILY@1999 TOPIC 03/10/20 21:45 06/08/20 21:44 03/18/20 21:14 Citalopram Hydrobromide (CeleXA) 20 mg DAILY ORAL 03/10/20 09:00 04/09/20 08:59 03/18/20 09:51 Clonidine HCl (Catapres Tab) 0.1 mg Q4H PRN ORAL SBP>170 03/06/20 16:15 06/04/20 16:14 Dextrose (Dextrose 50%) 25 ml Q30M PRN IV Hypoglycemia 03/13/20 16:30 06/11/20 16:29 Dextrose (Dextrose 50%) 50 ml Q30M PRN IV Hypoglycemia 03/13/20 16:30 06/11/20 16:29 Diphenhydramine HCl (Benadryl) 50 mg Q6H PRN ORAL Itching 03/06/20 19:00 04/05/20 18:59 Docusate Sodium (Colace) 100 mg THREE TIMES A DAY ORAL 03/08/20 13:00 04/07/20 12:59 03/18/20 18:13 Guaifenesin/ Dextromethorphan (Robitussin DM Syrup) 10 ml Q4H PRN ORAL For Cough 03/06/20 19:00 06/04/20 18:59 03/12/20 00:51 Heparin Sodium (Porcine) (Heparin 5000 units/ml) 5,000 units BID SUBQ 03/07/20 09:00 04/21/20 08:59 03/18/20 18:14 Heparin Sodium/ Sodium Chloride (Heparin 1000 units/500ml Premix) 1,000 unit ONCE PRN INJ RADIOLOGY PROCEDURE 03/17/20 09:30 03/19/20 09:29 Hydralazine HCl (Apresoline) 50 mg Q8HR ORAL 03/11/20 14:00 06/04/20 17:59 03/19/20 05:17 Insulin Aspart (NovoLOG) BEFORE MEALS AND HS SUBQ 03/13/20 16:30 06/11/20 16:29 03/19/20 05:56 Insulin Aspart (NovoLOG) 10 units NOVOTIAC SUBQ 03/17/20 11:50 06/13/20 06:29 03/19/20 05:59 Insulin Detemir (Levemir) 16 units BID SUBQ 03/17/20 09:00 06/13/20 08:59 03/18/20 10:37 Lidocaine/ Epinephrine (Lidocaine 1%/ Epi 0.01mg 20ml) 1 ml ONCE PRN INJ RADIOLOGY PROCEDURE 03/17/20 09:30 03/19/20 09:29 Lisinopril (ZestriL) 5 mg DAILY ORAL 03/17/20 09:00 04/16/20 08:59 03/17/20 10:51 Lorazepam (Ativan) 1 mg Q6H PRN ORAL For Anxiety 03/15/20 11:47 03/22/20 11:46 03/19/20 05:16 Methylprednisolone Sodium Succinate (Solu-MEDROL) 40 mg EVERY 6 HOURS IVP 03/11/20 12:00 06/09/20 11:59 03/19/20 05:54 Pantoprazole (Protonix) 40 mg EVERY 12 HOURS ORAL 03/08/20 21:00 04/07/20 20:59 03/18/20 21:14 Phenol/Menthol (Chloraseptic) 1 spray TIDPRN PRN ORAL For Pain 03/06/20 19:00 06/04/20 18:59 Sevelamer Carbonate (Renvela) 1,600 mg THREE TIMES A DAY ORAL 03/09/20 09:00 06/07/20 08:59 03/18/20 18:13 Tamsulosin HCl (Flomax) 0.4 mg BID ORAL 03/08/20 11:30 04/07/20 11:29 03/18/20 18:13 Vitamin B Complex (Vitamin B Complex) 1 tab DAILY ORAL 03/07/20 09:00 06/05/20 08:59 03/18/20 09:00 Assessment/Plan Problem List: (1) Hyperglycemia ICD Codes: R73.9 - Hyperglycemia, unspecified SNOMED: 22046854 (2) COPD (chronic obstructive pulmonary disease) ICD Codes: J44.9 - Chronic obstructive pulmonary disease, unspecified SNOMED: 19327672 Qualifiers: Qualified Codes: J44.1 - Chronic obstructive pulmonary disease with (acute) exacerbation (3) CHF (congestive heart failure) ICD Codes: I50.9 - Heart failure, unspecified SNOMED: 08219592 Qualifiers: Qualified Codes: I50.9 - Heart failure, unspecified (4) Hypoxia ICD Codes: R09.02 - Hypoxemia SNOMED: 485758226 (5) Renal failure (ARF), acute on chronic ICD Codes: N17.9 - Acute kidney failure, unspecified; N18.9 - Chronic kidney disease, unspecified SNOMED: 477512779 Qualifiers: Qualified Codes: N17.9 - Acute kidney failure, unspecified; N18.4 - Chronic kidney disease, stage 4 (severe) (6) HTN (hypertension) ICD Codes: I10 - Essential (primary) hypertension SNOMED: 62573006 Status: progressing, deteriorating Assessment/Plan: continue Levemir 16 units bid continue Novolog 10 units ac tid continue Novolog sliding scale ac / hs John Taylor MD Mar 19, 2020 06:34
--- NOTE | 2020-03-19 07:20 | NUR ---
NURSE HAND-OFF: Important Events on Shift: Getting out of bed, Pulled out IV x2 Patient Status: Stable/confused Diet: Renal Pending Orders: N/A Pending Results/Labs: Pending MD notification: N/A Latest Vital Signs: Temperature 97.5 , Pulse 89 , B/P 133 /71 , Respiratory Rate 18 , O2 SAT 97 , Nasal Cannula, O2 Flow Rate 2.0 . Vital Sign Comment: Latest Ryan Fall Score: 60 Fall Risk: High Risk Safety Measures: Call light Within Reach, Bed Alarm Zone 1, Side Rails Side Rails x2, Bed position Low and Locked. Fall Precautions: Yellow Socks Yellow Gown Patient Fall Education Report given to BELKIS Mansfield.
--- NOTE | 2020-03-19 07:37 | NUR ---
NURSE NOTES:received am report and made rounds, pt is in the bed awake, and verbally responsive and confused. pt denies any pain at this time. no SOB noted with o2 inplace @2l/min. HOB elevated. pt is high risk for fall; makes frequent attempt to get out iof the bed without calling for assist. assisted back to the bed. educated pt the risk of falls and injuries. provided reality orientation. bed alarm on. bed in locked position. placed call light within reach.
[2020-03-19 08:59] LABS: HEMATOCRIT 37.8 % (42.0-52.0); HEMOGLOBIN 12.1 G/DL (14.2-18.0); MEAN CORPUSCULAR VOLUME 88 FL (80-99); PLATELET COUNT 203 K/UL (150-450); RED BLOOD COUNT 4.29 M/UL (4.70-6.10); RED CELL DISTRIBUTION WIDTH 13.9 % (11.6-14.8); WHITE BLOOD COUNT 18.7 K/UL (4.8-10.8)
[2020-03-19] MEDS: Levemir Flexpen SUBQ SCH ×2 (09:00→17:39)
[2020-03-19 09:11] LABS: CALCIUM 8.2 MG/DL (8.5-10.1); CREATININE 3.7 MG/DL (0.55-1.30); POTASSIUM 4.3 MMOL/L (3.5-5.1)
[2020-03-19 09:15] LABS: ALBUMIN 2.5 G/DL (3.4-5.0); ALBUMIN/GLOBULIN RATIO 0.7 (1.0-2.7); BILIRUBIN,TOTAL 0.3 MG/DL (0.2-1.0)
--- NOTE | 2020-03-19 09:20 | Nephrology Progress Note ---
Assessment/Plan Problem List: (1) Renal failure (ARF), acute on chronic (2) Hypoxia (3) CHF (congestive heart failure) (4) COPD (chronic obstructive pulmonary disease) (5) HTN (hypertension) (6) Hyperkalemia Assessment Acute renal failure Possible underlying chronic kidney disease Hyperkalemia Respiratory failure: Combination of diastolic CHF, COPD, possible pneumonia Hypertension Diabetes mellitus Negative COVID-19 rapid test Plan March 19: Labs reviewed. Dialyzed yesterday. Leukocytosis worsened. Continue per ID. Patient encephalopathic. Attempt dialysis tomorrow. March 18: Labs reviewed. Patient has a tunneled catheter. Will dialyze today. Continue placement process for outpatient hemodialysis. Discussed with RN. March 17: Labs reviewed. Serum creatinine rising. Patient needs to be co ntinue on dialysis. Regretfully he pulled out his femoral dialysis catheter. Discussed with RN. Patient need to be consented for placement of tunneled dialysis catheter for continued dialysis. If needed, psychiatric clearance regarding if the patient is mentally fit to make decisions. March 16: Last hemodialysis March 14. Clinically doing well. Serum creatinine rising. Today creatinine is 3.7. Will check labs tomorrow if further rise of creatinine will arrange for dialysis and placement of the catheter for the outpatient dialysis due to acute on chronic renal failure. March 15: Last HD 03/14. Doing well. continue to monitor renal parameters . Discussed with Dr Caceres. Continue to rest March 14: Dialyzed March 12. Serum creatinine today 4.2. Will do dialysis and ultrafiltration today. Continue per pulmonary. March 13: Dialyzed yesterday. Serum creatinine 3.8 unchanged. Continue per pulmonary. Hemodialysis as needed. Continue to monitor renal parameters. March 12: Due for dialysis today. Discussed with pulmonary, patient due for right pleural effusion tap today. Labs reviewed. Continue per current manag ement. Continue to monitor renal parameters. March 11: Patient was dialyzed 2 days in a row with total of 7 L fluid removal. Today's ABG still suggestive of hypoxia. Patient uncooperative and does not keep the oxygen mask on. Labs reviewed. Renal parameters reasonable. Will attempt dialysis again tomorrow. Will discuss with Dr. Caceres with regard to possible initiation of steroid's, if underlying COPD is a major cause for the current pulmonary state. March 10: Patient was dialyzed yesterday. Over 3 L ultrafiltration done. Patient will be dialyzed again today with ultrafiltration. Continue to monitor pulmonary status. Discussed with . March 09: Seen this morning during hemodialysis. Patient has a femoral catheter for dialysis access. Aim to ultrafiltrate 3 to 4 L. Postdialysis will stop IV Lasix. We will continue to monitor urine output and renal parameters. Phos binders ordered. Per orders. Ultrasound results noted. Previously: Since diuretic treatment is not working, and the patient is volume overloaded and has difficulty breathing with lower extremity edema and possible ascites will aim to dialyze and do ultrafiltration. Adjust blood pressure medication. Kidney ultrasound, results noted Flomax twice daily Adjust the diet. Change to renal Pulmonary toilet Afterload preload reduction Avoid nephrotoxic's Subjective ROS Limited/Unobtainable: Yes Objective Objective Last 24 Hour Vital Signs Date Time Temp Pulse Resp B/P (MAP) Pulse Ox O2 Delivery O2 Flow Rate FiO2 03/19/20 08:00 97.2 92 20 127/78 (94) 93 03/19/20 07:25 96 Nasal Cannula 2.0 28 03/19/20 05:46 89 18 133/71 97 03/19/20 05:17 130/78 03/19/20 05:16 94 19 130/78 96 03/19/20 04:00 97.5 81 19 130/78 (95) 96 03/19/20 00:00 97.0 61 18 128/73 (91) 99 03/18/20 22:18 82 18 100 Nasal Cannula 2.0 28 80 18 96 03/18/20 22:04 79 20 140/77 98 03/18/20 21:34 87 22 159/88 97 03/18/20 21:15 158/93 03/18/20 20:19 Nasal Cannula 2.0 03/18/20 20:00 97.3 85 20 158/93 (114) 96 03/18/20 19:20 97 Nasal Cannula 2.0 28 03/18/20 18:39 74 18 136/77 97 03/18/20 18:09 75 20 138/79 97 03/18/20 16:00 97.7 75 20 138/79 (98) 97 03/18/20 14:00 127/67 (87) 03/18/20 14:00 127/67 03/18/20 12:00 97.7 83 20 149/78 (101) 96 03/18/20 09:59 82 20 100 Nasal Cannula 2.0 28 76 18 96 Intake and Output 03/18/20 03/19/20 19:00 07:00 Intake Total 60 ml 250 ml Output Total 2000 ml Balance -1940 ml 250 ml Intake Oral 60 ml 250 ml Hemodialysis UF 2000 ml # Bowel Movements 1 1 Laboratory Tests 03/18/20 10:32: POC Whole Blood Glucose 232H 03/18/20 11:51: POC Whole Blood Glucose 194H 03/18/20 16:12: POC Whole Blood Glucose 94 03/18/20 20:18: POC Whole Blood Glucose [Pending] 03/19/20 08:50: White Blood Count 18.7H, Red Blood Count 4.29L, Hemoglobin 12.1L, Hematocrit 37.8L, Mean Corpuscular Volume 88, Mean Corpuscular Hemoglobin 28.3, Mean Corpuscular Hemoglobin Concent 32.1, Red Cell Distribution Width 13.9, Platelet Count 203, Mean Platelet Volume 8.6, Neutrophils (%) (Auto) , Lymphocytes (%) (Auto) , Monocytes (%) (Auto) , Eosinophils (%) (Auto) , Basophils (%) (Auto) , Neutrophils % (Manual) [Pending], Lymphocytes % (Manual) [Pending], Platelet Estimate [Pending], Platelet Morphology [Pending], Sodium Level 136, Potassium Level 4.3, Chloride Level 101, Carbon Dioxide Level 30, Anion Gap 5, Blood Urea Nitrogen 74H, Creatinine 3.7H, Estimat Glomerular Filtration Rate 19.9, Glucose Level 227#H, Calcium Level 8.2L, Phosphorus Level 6.0H, Total Bilirubin 0.3, Aspartate Amino Transf (AST/SGOT) 32, Alanine Aminotransferase (ALT/SGPT) 29, Alkaline Phosphatase 81, Total Protein 6.2L, Albumin 2.5L, Globulin 3.7, Albumin/Globulin Ratio 0.7L Height (Feet): 5 Height (Inches): 9.00 Weight (Pounds): 228 General Appearance: confused, mild distress Cardiovascular: tachycardia Respiratory/Chest: decreased breath sounds Abdomen: distended Rene Singh MD Mar 19, 2020 09:20
--- NOTE | 2020-03-19 09:30 | Pulmonology Progress Note ---
Subjective ROS Limited/Unobtainable: Yes Interval Events: Feeling better; On nasal o2 Constitutional: Reports: no symptoms HEENT: Repors: no symptoms Respiratory: Reports: no symptoms Cardiovascular: Reports: no symptoms Gastrointestinal/Abdominal: Reports: no symptoms Genitourinary: Reports: no symptoms Allergies: Coded Allergies: PENICILLINS (Verified Allergy, Unknown, 03/06/20) Uncoded Allergies: SEAFOOD (Allergy, Unknown, 03/06/20) All Systems: reviewed and negative except above Objective Last 24 Hour Vital Signs Date Time Temp Pulse Resp B/P (MAP) Pulse Ox O2 Delivery O2 Flow Rate FiO2 03/19/20 08:00 97.2 92 20 127/78 (94) 93 03/19/20 07:25 96 Nasal Cannula 2.0 28 03/19/20 05:46 89 18 133/71 97 03/19/20 05:17 130/78 03/19/20 05:16 94 19 130/78 96 03/19/20 04:00 97.5 81 19 130/78 (95) 96 03/19/20 00:00 97.0 61 18 128/73 (91) 99 03/18/20 22:18 82 18 100 Nasal Cannula 2.0 28 80 18 96 03/18/20 22:04 79 20 140/77 98 03/18/20 21:34 87 22 159/88 97 03/18/20 21:15 158/93 03/18/20 20:19 Nasal Cannula 2.0 03/18/20 20:00 97.3 85 20 158/93 (114) 96 03/18/20 19:20 97 Nasal Cannula 2.0 28 03/18/20 18:39 74 18 136/77 97 03/18/20 18:09 75 20 138/79 97 03/18/20 16:00 97.7 75 20 138/79 (98) 97 03/18/20 14:00 127/67 (87) 03/18/20 14:00 127/67 03/18/20 12:00 97.7 83 20 149/78 (101) 96 03/18/20 09:59 82 20 100 Nasal Cannula 2.0 28 76 18 96 Intake and Output 03/18/20 03/19/20 19:00 07:00 Intake Total 60 ml 250 ml Output Total 2000 ml Balance -1940 ml 250 ml Intake Oral 60 ml 250 ml Hemodialysis UF 2000 ml # Bowel Movements 1 1 General Appearance: no acute distress HEENT: normocephalic Respiratory: chest wall non-tender, decreased breath sounds Cardiovascular: normal peripheral pulses, normal rate Abdomen: normal bowel sounds Laboratory Tests 03/18/20 10:32: POC Whole Blood Glucose 232H 03/18/20 11:51: POC Whole Blood Glucose 194H 03/18/20 16:12: POC Whole Blood Glucose 94 03/18/20 20:18: POC Whole Blood Glucose [Pending] 03/19/20 08:50: White Blood Count 18.7H, Red Blood Count 4.29L, Hemoglobin 12.1L, Hematocrit 37.8L, Mean Corpuscular Volume 88, Mean Corpuscular Hemoglobin 28.3, Mean Corpuscular Hemoglobin Concent 32.1, Red Cell Distribution Width 13.9, Platelet Count 203, Mean Platelet Volume 8.6, Neutrophils (%) (Auto) , Lymphocytes (%) (Auto) , Monocytes (%) (Auto) , Eosinophils (%) (Auto) , Basophils (%) (Auto) , Neutrophils % (Manual) [Pending], Lymphocytes % (Manual) [Pending], Platelet Estimate [Pending], Platelet Morphology [Pending], Sodium Level 136, Potassium Level 4.3, Chloride Level 101, Carbon Dioxide Level 30, Anion Gap 5, Blood Urea Nitrogen 74H, Creatinine 3.7H, Estimat Glomerular Filtration Rate 19.9, Glucose Level 227#H, Calcium Level 8.2L, Phosphorus Level 6.0H, Total Bilirubin 0.3, Aspartate Amino Transf (AST/SGOT) 32, Alanine Aminotransferase (ALT/SGPT) 29, Alkaline Phosphatase 81, Total Protein 6.2L, Albumin 2.5L, Globulin 3.7, Albumin/Globulin Ratio 0.7L Current Medications Medications (Trade) Dose Ordered Sig/Melissa Route PRN Reason Start Time Stop Time Status Last Admin Dose Admin Allopurinol (allopurinoL) 300 mg DAILY ORAL 03/09/20 14:30 04/08/20 14:29 03/18/20 09:50 Budesonide (Pulmicort) 0.25 mg EVERY 12 HOURS HHN 03/06/20 21:00 06/04/20 20:59 03/18/20 22:14 Chlorhexidine Gluconate (Cherry-Hex 2%) 1 applic DAILY@1999 TOPIC 03/17/20 20:00 06/15/20 19:59 03/17/20 20:00 Chlorhexidine Gluconate (Cherry-Hex 2%) 1 applic DAILY@1999 TOPIC 03/10/20 21:45 06/08/20 21:44 03/18/20 21:14 Citalopram Hydrobromide (CeleXA) 20 mg DAILY ORAL 03/10/20 09:00 04/09/20 08:59 03/18/20 09:51 Clonidine HCl (Catapres Tab) 0.1 mg Q4H PRN ORAL SBP>170 03/06/20 16:15 06/04/20 16:14 Dextrose (Dextrose 50%) 25 ml Q30M PRN IV Hypoglycemia 03/13/20 16:30 06/11/20 16:29 Dextrose (Dextrose 50%) 50 ml Q30M PRN IV Hypoglycemia 03/13/20 16:30 06/11/20 16:29 Diphenhydramine HCl (Benadryl) 50 mg Q6H PRN ORAL Itching 03/06/20 19:00 04/05/20 18:59 Docusate Sodium (Colace) 100 mg THREE TIMES A DAY ORAL 03/08/20 13:00 04/07/20 12:59 03/18/20 18:13 Guaifenesin/ Dextromethorphan (Robitussin DM Syrup) 10 ml Q4H PRN ORAL For Cough 03/06/20 19:00 06/04/20 18:59 03/12/20 00:51 Heparin Sodium (Porcine) (Heparin 5000 units/ml) 5,000 units BID SUBQ 03/07/20 09:00 04/21/20 08:59 03/18/20 18:14 Hydralazine HCl (Apresoline) 50 mg Q8HR ORAL 03/11/20 14:00 06/04/20 17:59 03/19/20 05:17 Insulin Aspart (NovoLOG) BEFORE MEALS AND HS SUBQ 03/13/20 16:30 06/11/20 16:29 03/19/20 05:56 Insulin Aspart (NovoLOG) 10 units NOVOTIAC SUBQ 03/17/20 11:50 06/13/20 06:29 03/19/20 05:59 Insulin Detemir (Levemir) 16 units BID SUBQ 03/17/20 09:00 06/13/20 08:59 03/18/20 10:37 Lisinopril (ZestriL) 5 mg DAILY ORAL 03/17/20 09:00 04/16/20 08:59 03/17/20 10:51 Lorazepam (Ativan) 1 mg Q6H PRN ORAL For Anxiety 03/15/20 11:47 03/22/20 11:46 03/19/20 05:16 Methylprednisolone Sodium Succinate (Solu-MEDROL) 40 mg EVERY 6 HOURS IVP 03/11/20 12:00 06/09/20 11:59 03/19/20 05:54 Pantoprazole (Protonix) 40 mg EVERY 12 HOURS ORAL 03/08/20 21:00 04/07/20 20:59 03/18/20 21:14 Phenol/Menthol (Chloraseptic) 1 spray TIDPRN PRN ORAL For Pain 03/06/20 19:00 06/04/20 18:59 Sevelamer Carbonate (Renvela) 1,600 mg THREE TIMES A DAY ORAL 03/09/20 09:00 06/07/20 08:59 03/18/20 18:13 Tamsulosin HCl (Flomax) 0.4 mg BID ORAL 03/08/20 11:30 04/07/20 11:29 03/18/20 18:13 Vitamin B Complex (Vitamin B Complex) 1 tab DAILY ORAL 03/07/20 09:00 06/05/20 08:59 03/18/20 09:00 Assessment/Plan Assessment/Plan IMPRESSION: 1. Improved pulmonary edema 2. Hypertension. 3. Diabetes mellitus. 4. Renal failure. 5. COPD. 6. Negative COVID 19 DISCUSSION: Continue breathing treatments with albuterol and Atrovent Negative COVID 19 Broad-spectrum antibiotics will be given. I will follow carefully. HD per renal Oxygenation improved Currently on 2-4L/O2via nasal canulae; saturating 95% Jie Rivera Omar Syed MD Mar 19, 2020 09:30
[2020-03-19] MEDS: Budesonide HHN 0.25mg/2ml ud HHN SCH ×2 (09:56→21:09)
[2020-03-19] MEDS: Tamsulosin 0.4mg cap ORAL SCH ×2 (11:23→17:03)
[2020-03-19] MEDS: Citalopram Hydrobromide 10mg Tab ORAL SCH (11:24)
[2020-03-19] MEDS: Docusate 100mg cap ORAL SCH ×3 (11:24→17:03)
[2020-03-19] MEDS: Lisinopril 2.5mg tab ORAL SCH (11:25)
[2020-03-19] MEDS: Vitamin B Complex Tab ORAL SCH (11:25)
[2020-03-19] MEDS: Heparin 5000 units/ml inj SUBQ SCH ×2 (11:27→17:05)
--- NOTE | 2020-03-19 12:38 | NUR ---
CASE MANAGEMENT:REVIEW SI;COPD. CHF. AC/CHR RENAL FAILURE. 97.3 92 20 151/81 93% 2L NC WBC 18.7 BUN 74 CR 3.5 BG 255 ALB 2.5 IS;ZESTRIL PO QD INSULIN LEVEMIR SUBQ BID SOLU-MEDROL IV Q6 PULMICORT HHN Q12 FLOMAX PO BID PROTONIX PO BID MED SURG STATUS DCP;FROM [facility]
--- NOTE | 2020-03-19 13:27 | Cardiac Electrophysiology PN ---
Assessment/Plan Assessment/Plan 1. Severe bilateral lower extremity edema with shortness of breath and BNP of almost 4000. EF 60%. Due to CHF due to diastolic dysfunction and renal failure on HD. 2. Hypertension. On HD , hydralazine 50 mg tid and p.r.n. clonidine. 3. Renal failure, creatinine was 3.9 that increased to >4 with BUN 80. Started on HD Pulled out his Right groin Janusz cath S/P PermCath placement 03/17/20 4. COPD. VIRGINIE RN Subjective Subjective No CP. ECG SR with RBBB, LAFB Got RFV Janusz and had HD 4 liters on 03/09 and 3 liters on 03/10 On Nasal Cannula. Pulled out his Right groin Janusz cath S/P Right chest PermCath placement and HD Objective Last 24 Hour Vital Signs Date Time Temp Pulse Resp B/P (MAP) Pulse Ox O2 Delivery O2 Flow Rate FiO2 03/19/20 13:07 151/81 03/19/20 12:00 97.3 92 20 151/81 (104) 95 03/19/20 11:25 127/78 03/19/20 10:06 75 18 96 Nasal Cannula 2.0 28 91 18 94 03/19/20 09:00 Nasal Cannula 2.0 03/19/20 08:00 97.2 92 20 127/78 (94) 93 03/19/20 07:25 96 Nasal Cannula 2.0 28 03/19/20 05:46 89 18 133/71 97 03/19/20 05:17 130/78 03/19/20 05:16 94 19 130/78 96 03/19/20 04:00 97.5 81 19 130/78 (95) 96 03/19/20 00:00 97.0 61 18 128/73 (91) 99 03/18/20 22:18 82 18 100 Nasal Cannula 2.0 28 80 18 96 03/18/20 22:04 79 20 140/77 98 03/18/20 21:34 87 22 159/88 97 03/18/20 21:15 158/93 03/18/20 20:19 Nasal Cannula 2.0 03/18/20 20:00 97.3 85 20 158/93 (114) 96 03/18/20 19:20 97 Nasal Cannula 2.0 28 11/12/20 18:39 74 18 136/77 97 03/18/20 18:09 75 20 138/79 97 03/18/20 16:00 97.7 75 20 138/79 (98) 97 03/18/20 14:00 127/67 (87) 03/18/20 14:00 127/67 Intake and Output 03/18/20 03/19/20 19:00 07:00 Intake Total 60 ml 250 ml Output Total 2000 ml Balance -1940 ml 250 ml Intake Oral 60 ml 250 ml Hemodialysis UF 2000 ml # Bowel Movements 1 1 Laboratory Tests Test 03/18/20 16:12 03/18/20 20:18 03/19/20 08:50 03/19/20 11:46 POC Whole Blood Glucose 94 MG/DL (74-106) Pending 255 MG/DL (74-106) H White Blood Count 18.7 K/UL (4.8-10.8) H Red Blood Count 4.29 M/UL (4.70-6.10) L Hemoglobin 12.1 G/DL (14.2-18.0) L Hematocrit 37.8 % (42.0-52.0) L Mean Corpuscular Volume 88 FL (80-99) Mean Corpuscular Hemoglobin 28.3 PG (27.0-31.0) Mean Corpuscular Hemoglobin Concent 32.1 G/DL (32.0-36.0) Red Cell Distribution Width 13.9 % (11.6-14.8) Platelet Count 203 K/UL (150-450) Mean Platelet Volume 8.6 FL (6.5-10.1) Neutrophils (%) (Auto) % (45.0-75.0) Lymphocytes (%) (Auto) % (20.0-45.0) Monocytes (%) (Auto) % (1.0-10.0) Eosinophils (%) (Auto) % (0.0-3.0) Basophils (%) (Auto) % (0.0-2.0) Differential Total Cells Counted 100 Neutrophils % (Manual) 94 % (45-75) H Lymphocytes % (Manual) 2 % (20-45) L Monocytes % (Manual) 4 % (1-10) Eosinophils % (Manual) 0 % (0-3) Basophils % (Manual) 0 % (0-2) Band Neutrophils 0 % (0-8) Platelet Estimate Adequate Platelet Morphology Normal Hypochromasia 1+ Sodium Level 136 MMOL/L (136-145) Potassium Level 4.3 MMOL/L (3.5-5.1) Chloride Level 101 MMOL/L (98-107) Carbon Dioxide Level 30 MMOL/L (21-32) Anion Gap 5 mmol/L (5-15) Blood Urea Nitrogen 74 mg/dL (7-18) H Creatinine 3.7 MG/DL (0.55-1.30) H Estimat Glomerular Filtration Rate 19.9 mL/min (>60) Glucose Level 227 MG/DL (74-106) #H Calcium Level 8.2 MG/DL (8.5-10.1) L Phosphorus Level 6.0 MG/DL (2.5-4.9) H Total Bilirubin 0.3 MG/DL (0.2-1.0) Aspartate Amino Transf (AST/SGOT) 32 U/L (15-37) Alanine Aminotransferase (ALT/SGPT) 29 U/L (12-78) Alkaline Phosphatase 81 U/L (46-116) Total Protein 6.2 G/DL (6.4-8.2) L Albumin 2.5 G/DL (3.4-5.0) L Globulin 3.7 g/dL Albumin/Globulin Ratio 0.7 (1.0-2.7) L Objective HEAD AND NECK: Positive JVD. LUNGS: Decreased breath sounds.Right chest PermCath in place CARDIOVASCULAR: Regular S1 and S2 with no gallop. ABDOMEN: Soft. EXTREMITIES: 2+ pitting edema in lower extremities as well as 2+ pitting edema in right arm. Ponce Serna MD Mar 19, 2020 13:26
--- NOTE | 2020-03-19 14:51 | Infectious Diseases Prog Note ---
Assessment/Plan Assessment/Plan IMPRESSION: 1. Pneumonia. treated 2. COPD. 3. Pulmonary edema. 4. CHF. 5. Diabetes mellitus. 6. Hypertension. 7. ESRD 8. Anemia. 9. BPH. 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 Pleural effusion 12. Leukocytosis, ? steroid related RECOMMENDATION: Observe off of antibiotic Taper steroids CXR Subjective ROS Limited/Unobtainable: No Respiratory: Reports: no symptoms Cardiovascular: Reports: no symptoms Gastrointestinal/Abdominal: Reports: no symptoms Genitourinary: Reports: no symptoms Allergies: Coded Allergies: PENICILLINS (Verified Allergy, Unknown, 03/06/20) Uncoded Allergies: SEAFOOD (Allergy, Unknown, 03/06/20) Objective Last 24 Hour Vital Signs Date Time Temp Pulse Resp B/P (MAP) Pulse Ox O2 Delivery O2 Flow Rate FiO2 03/19/20 13:07 151/81 03/19/20 12:00 97.3 92 20 151/81 (104) 95 03/19/20 11:25 127/78 03/19/20 10:06 75 18 96 Nasal Cannula 2.0 28 91 18 94 03/19/20 09:00 Nasal Cannula 2.0 03/19/20 08:00 97.2 92 20 127/78 (94) 93 03/19/20 07:25 96 Nasal Cannula 2.0 28 03/19/20 05:46 89 18 133/71 97 03/19/20 05:17 130/78 03/19/20 05:16 94 19 130/78 96 03/19/20 04:00 97.5 81 19 130/78 (95) 96 03/19/20 00:00 97.0 61 18 128/73 (91) 99 03/18/20 22:18 82 18 100 Nasal Cannula 2.0 28 80 18 96 03/18/20 22:04 79 20 140/77 98 03/18/20 21:34 87 22 159/88 97 03/18/20 21:15 158/93 03/18/20 20:19 Nasal Cannula 2.0 03/18/20 20:00 97.3 85 20 158/93 (114) 96 03/18/20 19:20 97 Nasal Cannula 2.0 28 03/18/20 18:39 74 18 136/77 97 03/18/20 18:09 75 20 138/79 97 11/12/20 16:00 97.7 75 20 138/79 (98) 97 Height (Feet): 5 Height (Inches): 9.00 Weight (Pounds): 228 General Appearance: no acute distress HEENT: mucous membranes moist Respiratory/Chest: lungs clear Cardiovascular: normal rate, other - R chest Permacath Abdomen: soft, non tender Extremities: no edema Neurologic/Psychiatric: alert, responsive Laboratory Tests Test 03/18/20 16:12 03/18/20 20:18 03/19/20 08:50 03/19/20 11:46 POC Whole Blood Glucose 94 MG/DL (74-106) Pending 255 MG/DL (74-106) H White Blood Count 18.7 K/UL (4.8-10.8) H Red Blood Count 4.29 M/UL (4.70-6.10) L Hemoglobin 12.1 G/DL (14.2-18.0) L Hematocrit 37.8 % (42.0-52.0) L Mean Corpuscular Volume 88 FL (80-99) Mean Corpuscular Hemoglobin 28.3 PG (27.0-31.0) Mean Corpuscular Hemoglobin Concent 32.1 G/DL (32.0-36.0) Red Cell Distribution Width 13.9 % (11.6-14.8) Platelet Count 203 K/UL (150-450) Mean Platelet Volume 8.6 FL (6.5-10.1) Neutrophils (%) (Auto) % (45.0-75.0) Lymphocytes (%) (Auto) % (20.0-45.0) Monocytes (%) (Auto) % (1.0-10.0) Eosinophils (%) (Auto) % (0.0-3.0) Basophils (%) (Auto) % (0.0-2.0) Differential Total Cells Counted 100 Neutrophils % (Manual) 94 % (45-75) H Lymphocytes % (Manual) 2 % (20-45) L Monocytes % (Manual) 4 % (1-10) Eosinophils % (Manual) 0 % (0-3) Basophils % (Manual) 0 % (0-2) Band Neutrophils 0 % (0-8) Platelet Estimate Adequate Platelet Morphology Normal Hypochromasia 1+ Sodium Level 136 MMOL/L (136-145) Potassium Level 4.3 MMOL/L (3.5-5.1) Chloride Level 101 MMOL/L (98-107) Carbon Dioxide Level 30 MMOL/L (21-32) Anion Gap 5 mmol/L (5-15) Blood Urea Nitrogen 74 mg/dL (7-18) H Creatinine 3.7 MG/DL (0.55-1.30) H Estimat Glomerular Filtration Rate 19.9 mL/min (>60) Glucose Level 227 MG/DL (74-106) #H Calcium Level 8.2 MG/DL (8.5-10.1) L Phosphorus Level 6.0 MG/DL (2.5-4.9) H Total Bilirubin 0.3 MG/DL (0.2-1.0) Aspartate Amino Transf (AST/SGOT) 32 U/L (15-37) Alanine Aminotransferase (ALT/SGPT) 29 U/L (12-78) Alkaline Phosphatase 81 U/L (46-116) Total Protein 6.2 G/DL (6.4-8.2) L Albumin 2.5 G/DL (3.4-5.0) L Globulin 3.7 g/dL Albumin/Globulin Ratio 0.7 (1.0-2.7) L Test 03/19/20 13:47 Arterial Blood pH 7.277 (7.350-7.450) Arterial Blood Partial Pressure CO2 58.6 mmHg (35.0-45.0) *H Arterial Blood Partial Pressure O2 63.9 mmHg (75.0-100.0) L Arterial Blood HCO3 26.7 mmol/L (22.0-26.0) H Arterial Blood Oxygen Saturation 90.2 % (95-100) L Arterial Blood Base Excess -0.9 (-2-2) Oscar Test Positive Current Medications Medications (Trade) Dose Ordered Sig/Melissa Route PRN Reason Start Time Stop Time Status Last Admin Dose Admin Allopurinol (allopurinoL) 300 mg DAILY ORAL 03/09/20 14:30 04/08/20 14:29 03/19/20 11:24 Budesonide (Pulmicort) 0.25 mg EVERY 12 HOURS HHN 03/06/20 21:00 06/04/20 20:59 03/19/20 09:56 Chlorhexidine Gluconate (Cherry-Hex 2%) 1 applic DAILY@1999 TOPIC 03/17/20 20:00 2/9/21 19:59 03/17/20 20:00 Chlorhexidine Gluconate (Cherry-Hex 2%) 1 applic DAILY@2000 TOPIC 03/10/20 21:45 06/08/20 21:44 03/18/20 21:14 Citalopram Hydrobromide (CeleXA) 20 mg DAILY ORAL 03/10/20 09:00 04/09/20 08:59 03/19/20 11:24 Clonidine HCl (Catapres Tab) 0.1 mg Q4H PRN ORAL SBP>170 03/06/20 16:15 06/04/20 16:14 Dextrose (Dextrose 50%) 25 ml Q30M PRN IV Hypoglycemia 03/13/20 16:30 06/11/20 16:29 Dextrose (Dextrose 50%) 50 ml Q30M PRN IV Hypoglycemia 03/13/20 16:30 06/11/20 16:29 Diphenhydramine HCl (Benadryl) 50 mg Q6H PRN ORAL Itching 03/06/20 19:00 04/05/20 18:59 Docusate Sodium (Colace) 100 mg THREE TIMES A DAY ORAL 03/08/20 13:00 04/07/20 12:59 03/19/20 13:07 Guaifenesin/ Dextromethorphan (Robitussin DM Syrup) 10 ml Q4H PRN ORAL For Cough 03/06/20 19:00 06/04/20 18:59 03/12/20 00:51 Heparin Sodium (Porcine) (Heparin 5000 units/ml) 5,000 units BID SUBQ 03/07/20 09:00 04/21/20 08:59 03/19/20 11:27 Hydralazine HCl (Apresoline) 50 mg Q8HR ORAL 03/11/20 14:00 06/04/20 17:59 03/19/20 13:07 Insulin Aspart (NovoLOG) BEFORE MEALS AND HS SUBQ 03/13/20 16:30 06/11/20 16:29 03/19/20 12:35 Insulin Aspart (NovoLOG) 10 units NOVOTIAC SUBQ 03/17/20 11:50 06/13/20 06:29 03/19/20 12:38 Insulin Detemir (Levemir) 16 units BID SUBQ 03/17/20 09:00 06/13/20 08:59 03/18/20 10:37 Lisinopril (ZestriL) 5 mg DAILY ORAL 03/17/20 09:00 04/16/20 08:59 03/19/20 11:25 Lorazepam (Ativan) 1 mg Q6H PRN ORAL For Anxiety 03/15/20 11:47 03/22/20 11:46 03/19/20 05:16 Methylprednisolone Sodium Succinate (Solu-MEDROL) 40 mg EVERY 6 HOURS IVP 03/11/20 12:00 06/09/20 11:59 03/19/20 13:07 Pantoprazole (Protonix) 40 mg EVERY 12 HOURS ORAL 03/08/20 21:00 04/07/20 20:59 03/19/20 11:23 Phenol/Menthol (Chloraseptic) 1 spray TIDPRN PRN ORAL For Pain 03/06/20 19:00 06/04/20 18:59 Sevelamer Carbonate (Renvela) 1,600 mg THREE TIMES A DAY ORAL 03/09/20 09:00 06/07/20 08:59 03/19/20 13:07 Tamsulosin HCl (Flomax) 0.4 mg BID ORAL 03/08/20 11:30 04/07/20 11:29 03/19/20 11:23 Vitamin B Complex (Vitamin B Complex) 1 tab DAILY ORAL 03/07/20 09:00 06/05/20 08:59 03/19/20 11:25 Brett Pleitez MD Mar 19, 2020 14:51
--- NOTE | 2020-03-19 14:59 | NUR ---
NURSE NOTES: Left message with MD Singh office for ABG results.
--- NOTE | 2020-03-19 15:50 | NUR ---
NURSE NOTES: Receives call from Dr. Singh to call dr urbano due to abnormal abg result.
--- NOTE | 2020-03-19 16:00 | NUR ---
NURSE NOTES:Placed a call to dr urbano regarding abnormal abg. MD ordered bipap 15/5 with 50% fio2, ABG in 2 hours and transfer patient to [facility]. Order noted and carried out.
--- NOTE | 2020-03-19 17:40 | NUR ---
NURSE NOTES:pt transferred to [facility] per Dr. Caceres's order.
--- NOTE | 2020-03-19 17:45 | NUR ---
NURSE NOTES: Received report from BELKIS Mansfield. Patient arrived to unit on 2L NC. RT at bedside, immediately placed patient on Bipap orders of 15/5 FiO2 50%, per BELKIS Mansfield report Dr. Caceres would like ABG lab draw 2 hours after placing patient on BiPap. Order entered. VS BP 112/76, HR 72, temp 96.2F, SpO2 99%. Bed is in lowest position, brakes engaged. Call light is kept within easy reach. Will continue to monitor patient.
--- NOTE | 2020-03-19 17:55 | NUR ---
NURSE NOTES: Per BELKIS Mansfield, they contacted [facility] Neph[facility] at [address] Singh's order for hemodialysis tomorrow, 03/20/2020. Per BELKIS Mansfield spoke with Christopher. Donita. Will endorse accordingly.
--- NOTE | 2020-03-19 18:00 | NUR ---
NURSE NOTES: Called and spoke with BELKIS Andersen charge nurse [facility] and informed charge nurse, BELKIS Mansfield need to complete intake and out as that patient transferred at 1745. Noted. Per BELKIS Andersen, they will notify BELKIS Mansfield.
--- NOTE | 2020-03-19 19:20 | NUR ---
NURSE HAND-OFF REPORT: Important Events on Shift: Patient Status: Stable Diet: Renal diet Pending Orders: None Pending Results/Labs:None Pending MD notification: None Latest Vital Signs: Temperature 96.1 , Pulse 74 , B/P 112 /72 , Respiratory Rate 21 , O2 SAT 99 , Nasal Cannula, O2 Flow Rate 2.0 . Vital Sign Comment: Stable EKG Rhythm: SR w/ BBB Rhythm change?: N MD Notified?: N - MD Response: Latest Ryan Fall Score: 60 Fall Risk: High Risk Safety Measures: Call light Within Reach, Bed Alarm Zone 1, Side Rails Side Rails x2, Bed position Low and Locked. Fall Precautions: Yellow Socks Yellow Gown Patient Fall Education Report given to BELKIS Mulligan.
--- NOTE | 2020-03-19 19:21 | NUR ---
NURSE NOTES: Patient received from BELKIS Kelley. patient asleep arousable to name oriented to self. Patient respirations shallow on bipap 15/5 FiO2 50%. BP169/78 HR72 NSR w/BBB on monitor. Right upper chest permacath and left upper arm #24 SL, dressing re-enforced. Skin warm dry with sacral redness noted. Patient assisted to reposition. Bed locked lowest position call light within reach.
--- NOTE | 2020-03-19 19:36 | General Progress Note ---
Subjective ROS Limited/Unobtainable: Yes Allergies: Coded Allergies: PENICILLINS (Verified Allergy, Unknown, 03/06/20) Uncoded Allergies: SEAFOOD (Allergy, Unknown, 03/06/20) Objective Last 24 Hour Vital Signs Date Time Temp Pulse Resp B/P (MAP) Pulse Ox O2 Delivery O2 Flow Rate FiO2 03/19/20 19:00 99 Bi-Pap 50 03/19/20 18:57 74 21 100 50 03/19/20 17:52 89 19 99 50 03/19/20 17:45 84 03/19/20 17:40 96.1 89 22 112/72 (85) 100 03/19/20 16:00 98.0 90 22 136/68 (90) 94 03/19/20 13:07 151/81 03/19/20 12:00 97.3 92 20 151/81 (104) 95 03/19/20 11:25 127/78 03/19/20 10:06 75 18 96 Nasal Cannula 2.0 28 91 18 94 03/19/20 09:00 Nasal Cannula 2.0 03/19/20 08:00 97.2 92 20 127/78 (94) 93 03/19/20 07:25 96 Nasal Cannula 2.0 28 03/19/20 05:46 89 18 133/71 97 03/19/20 05:17 130/78 03/19/20 05:16 94 19 130/78 96 03/19/20 04:00 97.5 81 19 130/78 (95) 96 03/19/20 00:00 97.0 61 18 128/73 (91) 99 03/18/20 22:18 82 18 100 Nasal Cannula 2.0 28 80 18 96 03/18/20 22:04 79 20 140/77 98 03/18/20 21:34 87 22 159/88 97 03/18/20 21:15 158/93 03/18/20 20:19 Nasal Cannula 2.0 03/18/20 20:00 97.3 85 20 158/93 (114) 96 Intake and Output 03/18/20 03/19/20 19:00 07:00 Intake Total 60 ml 250 ml Output Total 2000 ml Balance -1940 ml 250 ml Intake Oral 60 ml 250 ml Hemodialysis UF 2000 ml # Bowel Movements 1 1 Laboratory Tests 03/18/20 20:18: POC Whole Blood Glucose [Pending] 03/19/20 08:50: White Blood Count 18.7H, Red Blood Count 4.29L, Hemoglobin 12.1L, Hematocrit 37 .8L, Mean Corpuscular Volume 88, Mean Corpuscular Hemoglobin 28.3, Mean Corpuscular Hemoglobin Concent 32.1, Red Cell Distribution Width 13.9, Platelet Count 203, Mean Platelet Volume 8.6, Neutrophils (%) (Auto) , Lymphocytes (%) (Auto) , Monocytes (%) (Auto) , Eosinophils (%) (Auto) , Basophils (%) (Auto) , Differential Total Cells Counted 100, Neutrophils % (Manual) 94H, Lymphocytes % (Manual) 2L, Monocytes % (Manual) 4, Eosinophils % (Manual) 0, Basophils % (Manual) 0, Band Neutrophils 0, Platelet Estimate Adequate, Platelet Morphology Normal, Hypochromasia 1+, Sodium Level 136, Potassium Level 4.3, Chloride Level 101, Carbon Dioxide Level 30, Anion Gap 5, Blood Urea Nitrogen 74H, Creatinine 3.7H, Estimat Glomerular Filtration Rate 19.9, Glucose Level 227#H, Calcium Level 8.2L, Phosphorus Level 6.0H, Total Bilirubin 0.3, Aspartate Amino Transf (AST/SGOT) 32, Alanine Aminotransferase (ALT/SGPT) 29, Alkaline Phosphatase 81, Total Protein 6.2L, Albumin 2.5L, Globulin 3.7, Albumin/Globulin Ratio 0.7L 03/19/20 11:46: POC Whole Blood Glucose 255H 03/19/20 13:47: Arterial Blood pH 7.277L, Arterial Blood Partial Pressure CO2 58.6*H, Arterial Blood Partial Pressure O2 63.9L, Arterial Blood HCO3 26.7H, Arterial Blood Oxygen Saturation 90.2L, Arterial Blood Base Excess -0.9, Oscar Test Positive 03/19/20 16:17: POC Whole Blood Glucose [Pending] 03/19/20 17:00: POC Whole Blood Glucose 81 03/19/20 17:29: POC Whole Blood Glucose 131H Height (Feet): 5 Height (Inches): 9.00 Weight (Pounds): 228 Assessment/Plan Problem List: (1) COPD (chronic obstructive pulmonary disease) ICD Codes: J44.9 - Chronic obstructive pulmonary disease, unspecified SNOMED: 98017410 Qualifiers: Qualified Codes: J44.1 - Chronic obstructive pulmonary disease with (acute) exacerbation (2) CHF (congestive heart failure) ICD Codes: I50.9 - Heart failure, unspecified SNOMED: [id number] Qualifiers: Qualified Codes: I50.9 - Heart failure, unspecified (3) Hypoxia ICD Codes: R09.02 - Hypoxemia SNOMED: 968563306 (4) Renal failure (ARF), acute on chronic ICD Codes: N17.9 - Acute kidney failure, unspecified; N18.9 - Chronic kidney disease, unspecified SNOMED: [id number] Qualifiers: Qualified Codes: N17.9 - Acute kidney failure, unspecified; N18.4 - Chronic kidney disease, stage 4 (severe) Status: progressing Assessment/Plan: decompensated jillsgamaliel t victor hugo worsening resp insuff dialysis access in place now will get diaylsis today chf not improving John Chavez MD Mar 19, 2020 19:36
[2020-03-19] MEDS: Dyna-Hex 2% Top Sol 2oz TOPIC SCH ×2 (20:17→20:18)
--- NOTE | 2020-03-19 20:25 | NUR ---
NURSE NOTES: Paged Dr. Caceres to report abnormal ABG. message left. awaiting call back.
--- NOTE | 2020-03-19 20:41 | NUR ---
NURSE NOTES: Second Page for Dr. Caceres regarding abnormal ABG. message left. awaiting call back.
--- NOTE | 2020-03-19 21:15 | NUR ---
NURSE NOTES: Paged Dr. Caceres to report abnormal ABG and patient restless. message left. awaiting call back.
--- NOTE | 2020-03-19 22:11 | NUR ---
NURSE NOTES: Dr. Caceres returned page. orders received read back and carried out.
[2020-03-19] MEDS ORDERED: LORazepam Inj 2mg/ml 1ml IV PRN (22:15)
[2020-03-20] VITALS: BP 161/80
--- NOTE | 2020-03-20 | NUR ---
NURSE NOTES: patient asleep arousable to shaking after prn ativan administered. Patient respirations shallow on bipap 18/5 FiO2 40%. BP161/80 HR61 NSR w/BBB on monitor. left upper arm #24 SL, dressing re-enforced. Skin warm dry with sacral redness noted. Patient assisted to reposition. Bed locked lowest position call light within reach.
[2020-03-20 04:00] VITALS: BP 153/68
--- NOTE | 2020-03-20 04:00 | NUR ---
NURSE NOTES: patient asleep arousable to shaking oriented to self. Patient respirations shallow on bipap 18/5 FiO2 40%. BP153/68 HR75 NSR w/BBB on monitor and afebrile. Right upper chest permacath and left upper arm #24 SL. Skin warm dry with sacral redness noted. Patient assisted to reposition. Bed locked lowest position call light within reach.
[2020-03-20 05:25] LABS: HEMATOCRIT 36.7 % (42.0-52.0); HEMOGLOBIN 11.4 G/DL (14.2-18.0); MEAN CORPUSCULAR VOLUME 88 FL (80-99); PLATELET COUNT 199 K/UL (150-450); RED BLOOD COUNT 4.14 M/UL (4.70-6.10); RED CELL DISTRIBUTION WIDTH 13.9 % (11.6-14.8)
[2020-03-20] MEDS: Solu-MEDROL 40mg Inj IVP SCH ×4 (05:31→23:25)
[2020-03-20] MEDS: HydrALAZINE 50mg tab ORAL SCH ×3 (05:31→21:13)
[2020-03-20] MEDS: NovoLOG Insulin Flexpen SUBQ SCH ×7 (05:33→21:14)
[2020-03-20 05:37] LABS: WHITE BLOOD COUNT 23.5 K/UL (4.8-10.8)
[2020-03-20 05:45] LABS: ALBUMIN 2.3 G/DL (3.4-5.0); ALBUMIN/GLOBULIN RATIO 0.7 (1.0-2.7); BILIRUBIN,TOTAL 0.3 MG/DL (0.2-1.0); CALCIUM 8.1 MG/DL (8.5-10.1); CREATININE 3.8 MG/DL (0.55-1.30); POTASSIUM 4.8 MMOL/L (3.5-5.1)
--- NOTE | 2020-03-20 07:13 | NUR ---
NURSE HAND-OFF REPORT: Important Events on Shift: Patient Status: Diet: Pending Orders: Pending Results/Labs: Pending MD notification: Latest Vital Signs: Temperature 97.4 , Pulse 64 , B/P 153 /68 , Respiratory Rate 19 , O2 SAT 100 , Bi-pap, O2 Flow Rate 2.0 . Vital Sign Comment: EKG Rhythm: Sinus Rhythm Rhythm change?: N MD Notified?: N - MD Response: Latest Ryan Fall Score: 60 Fall Risk: High Risk Safety Measures: Call light Within Reach, Bed Alarm Zone 1, Side Rails Side Rails x2, Bed position Low and Locked. Fall Precautions: Yellow Socks Yellow Gown Patient Fall Education Report given to BELKIS Barrientos.
--- NOTE | 2020-03-20 07:15 | NUR ---
NURSE NOTES: Received report from Ese TAMAYO. Pt. in bed, awake a little bit restless. Bilateral soft wrist restraints in placed. On Bipap at present with setting of 18/5 and Fi O2 at 40%. IV site at left upper arm #24g. in placed patent/intact. HD perm-a-cath at right upper chest. Bed in low position, locked. Call light within reach. Will cont. to monitor.
--- NOTE | 2020-03-20 07:45 | NUR ---
NURSE NOTES: Pt. having dialysis at present with MD order.
[2020-03-20 08:00] VITALS: BP 157/81
[2020-03-20] MEDS: Tamsulosin 0.4mg cap ORAL SCH ×2 (09:00→17:31)
[2020-03-20] MEDS: Citalopram Hydrobromide 10mg Tab ORAL SCH (09:00)
[2020-03-20] MEDS: Lisinopril 2.5mg tab ORAL SCH (09:00)
[2020-03-20] MEDS: Heparin 5000 units/ml inj SUBQ SCH ×2 (09:00→17:35)
[2020-03-20] MEDS: Docusate 100mg cap ORAL SCH ×3 (09:00→17:30)
[2020-03-20] MEDS: Vitamin B Complex Tab ORAL SCH (09:00)
[2020-03-20] MEDS: Levemir Flexpen SUBQ SCH ×2 (09:41→17:36)
[2020-03-20] MEDS: Budesonide HHN 0.25mg/2ml ud HHN SCH ×2 (09:54→20:14)
--- NOTE | 2020-03-20 10:27 | NUR ---
NURSE NOTES: S/P dialysis latest B/P 136/63 and 2300ml out. (2.3L). Procedure tolerated well. No s/sx of bleeding at right upper chest perm-a-cath.
--- NOTE | 2020-03-20 11:55 | Pulmonology Progress Note ---
Subjective ROS Limited/Unobtainable: Yes Interval Events: S/p HD now; was on BiPAp overnight Constitutional: Reports: no symptoms HEENT: Repors: no symptoms Respiratory: Reports: no symptoms Cardiovascular: Reports: no symptoms Gastrointestinal/Abdominal: Reports: no symptoms Genitourinary: Reports: no symptoms Allergies: Coded Allergies: PENICILLINS (Verified Allergy, Unknown, 03/06/20) Uncoded Allergies: SEAFOOD (Allergy, Unknown, 03/06/20) All Systems: reviewed and negative except above Objective Last 24 Hour Vital Signs Date Time Temp Pulse Resp B/P (MAP) Pulse Ox O2 Delivery O2 Flow Rate FiO2 03/20/20 10:00 Bi-pap 40.0 03/20/20 09:55 75 18 100 Bi-Pap 40 81 18 98 03/20/20 09:55 99 Bi-Pap 40 03/20/20 09:00 Bi-pap 03/20/20 08:48 Bi-pap 40.0 03/20/20 08:00 96.7 64 21 157/81 (106) 100 03/20/20 08:00 77 03/20/20 07:05 57 18 99 40 03/20/20 05:31 153/68 03/20/20 04:54 64 19 100 40 03/20/20 04:00 73 03/20/20 04:00 97.4 75 21 153/68 (96) 99 03/20/20 02:56 68 18 99 40 03/20/20 01:34 65 19 98 40 03/20/20 00:00 69 03/20/20 00:00 97.8 61 18 161/80 (107) 97 03/19/20 22:39 65 19 100 40 03/19/20 21:57 73 18 166/77 98 03/19/20 21:27 72 20 169/72 98 03/19/20 21:25 169/78 03/19/20 21:09 69 21 100 Bi-Pap 50 73 18 100 50 03/19/20 20:00 97.5 72 22 169/78 (108) 98 03/19/20 20:00 70 03/19/20 20:00 Bi-pap 03/19/20 19:00 99 Bi-Pap 50 03/19/20 18:57 74 21 100 50 03/19/20 17:52 89 19 99 50 03/19/20 17:45 84 03/19/20 17:40 96.1 89 22 112/72 (85) 100 03/19/20 16:00 98.0 90 22 136/68 (90) 94 03/19/20 13:07 151/81 03/19/20 12:00 97.3 92 20 151/81 (104) 95 Intake and Output 03/19/20 03/20/20 19:00 07:00 Intake Total 480 ml 60 ml Balance 480 ml 60 ml Intake Oral 480 ml 60 ml # Voids 1 # Bowel Movements 1 General Appearance: no acute distress HEENT: normocephalic Respiratory: chest wall non-tender, decreased breath sounds Cardiovascular: normal peripheral pulses, normal rate Abdomen: normal bowel sounds Laboratory Tests 03/19/20 13:47: Arterial Blood pH 7.277L, Arterial Blood Partial Pressure CO2 58.6*H, Arterial Blood Partial Pressure O2 63.9L, Arterial Blood HCO3 26.7H, Arterial Blood Oxygen Saturation 90.2L, Arterial Blood Base Excess -0.9, Oscar Test Positive 03/19/20 16:17: POC Whole Blood Glucose [Pending] 03/19/20 17:00: POC Whole Blood Glucose 81 03/19/20 17:29: POC Whole Blood Glucose 131H 03/19/20 20:00: Arterial Blood pH 7.251L, Arterial Blood Partial Pressure CO2 71.1*H, Arterial Blood Partial Pressure O2 101.4H, Arterial Blood HCO3 30.5H, Arterial Blood Oxygen Saturation 96.9, Arterial Blood Base Excess 1.8, Oscar Test Positive 03/19/20 20:15: POC Whole Blood Glucose 175H 03/20/20 03:35: White Blood Count 23.5*H, Red Blood Count 4.14L, Hemoglobin 11.4L, Hematocrit 36.7L, Mean Corpuscular Volume 88, Mean Corpuscular Hemoglobin 27.6, Mean Corpuscular Hemoglobin Concent 31.2L, Red Cell Distribution Width 13.9, Platelet Count 199, Mean Platelet Volume 10.0, Neutrophils (%) (Auto) , Lymphocytes (%) (Auto) , Monocytes (%) (Auto) , Eosinophils (%) (Auto) , Basophils (%) (Auto) , Differential Total Cells Counted 100, Neutrophils % (Manual) 96H, Lymphocytes % (Manual) 2L, Monocytes % (Manual) 2, Eosinophils % (Manual) 0, Basophils % (Manual) 0, Band Neutrophils 0, Platelet Estimate Adequate, Platelet Morphology Normal, Hypochromasia 1+, Sodium Level 136, Potassium Level 4.8, Chloride Level 102, Carbon Dioxide Level 29, Anion Gap 5, Blood Urea Nitrogen 88H, Creatinine 3.8H, Estimat Glomerular Filtration Rate 19.3, Glucose Level 189H, Calcium Level 8.1L, Phosphorus Level 5.0H, Total Bilirubin 0.3, Aspartate Amino Transf (AST/SGOT) 24, Alanine Aminotransferase (ALT/SGPT) 34, Alkaline Phosphatase 86, Total Protein 5.7L, Albumin 2.3L, Globulin 3.4, Albumin/Globulin Ratio 0.7L 03/20/20 05:25: POC Whole Blood Glucose [Pending] 03/20/20 10:29: Arterial Blood pH 7.430, Arterial Blood Partial Pressure CO2 41.8, Arterial Blood Partial Pressure O2 131.9H, Arterial Blood HCO3 27.3H, Arterial Blood Oxygen Saturation 98.7, Arterial Blood Base Excess 2.8H, Oscar Test Positive Current Medications Medications (Trade) Dose Ordered Sig/Melissa Route PRN Reason Start Time Stop Time Status Last Admin Dose Admin Allopurinol (allopurinoL) 300 mg DAILY ORAL 03/09/20 14:30 04/08/20 14:29 03/19/20 11:24 Budesonide (Pulmicort) 0.25 mg EVERY 12 HOURS HHN 03/06/20 21:00 06/04/20 20:59 03/20/20 09:54 Chlorhexidine Gluconate (Cherry-Hex 2%) 1 applic DAILY@1999 TOPIC 03/17/20 20:00 06/15/20 19:59 03/19/20 20:18 Chlorhexidine Gluconate (Cherry-Hex 2%) 1 applic DAILY@1999 TOPIC 03/10/20 21:45 06/08/20 21:44 03/19/20 20:17 Citalopram Hydrobromide (CeleXA) 20 mg DAILY ORAL 03/10/20 09:00 04/09/20 08:59 03/19/20 11:24 Clonidine HCl (Catapres Tab) 0.1 mg Q4H PRN ORAL SBP>170 03/06/20 16:15 06/04/20 16:14 Dextrose (Dextrose 50%) 25 ml Q30M PRN IV Hypoglycemia 03/13/20 16:30 06/11/20 16:29 Dextrose (Dextrose 50%) 50 ml Q30M PRN IV Hypoglycemia 03/13/20 16:30 06/11/20 16:29 Diphenhydramine HCl (Benadryl) 50 mg Q6H PRN ORAL Itching 03/06/20 19:00 04/05/20 18:59 Docusate Sodium (Colace) 100 mg THREE TIMES A DAY ORAL 03/08/20 13:00 04/07/20 12:59 03/19/20 17:03 Guaifenesin/ Dextromethorphan (Robitussin DM Syrup) 10 ml Q4H PRN ORAL For Cough 03/06/20 19:00 06/04/20 18:59 03/12/20 00:51 Heparin Sodium (Porcine) (Heparin 5000 units/ml) 5,000 units BID SUBQ 03/07/20 09:00 04/21/20 08:59 03/19/20 17:05 Hydralazine HCl (Apresoline) 50 mg Q8HR ORAL 03/11/20 14:00 06/04/20 17:59 03/20/20 05:31 Insulin Aspart (NovoLOG) BEFORE MEALS AND HS SUBQ 03/13/20 16:30 06/11/20 16:29 03/20/20 05:33 Insulin Aspart (NovoLOG) 10 units NOVOTIAC SUBQ 03/17/20 11:50 06/13/20 06:29 03/19/20 12:38 Insulin Detemir (Levemir) 16 units BID SUBQ 03/17/20 09:00 06/13/20 08:59 03/20/20 09:41 Lisinopril (ZestriL) 5 mg DAILY ORAL 03/17/20 09:00 04/16/20 08:59 03/19/20 11:25 Lorazepam (Ativan 2mg/ml 1ml) 1 mg Q4H PRN IV Agitation 03/19/20 22:15 03/26/20 22:14 Lorazepam (Ativan) 1 mg Q6H PRN ORAL For Anxiety 03/15/20 11:47 03/22/20 11:46 03/19/20 21:27 Methylprednisolone Sodium Succinate (Solu-MEDROL) 40 mg EVERY 6 HOURS IVP 03/11/20 12:00 06/09/20 11:59 03/20/20 05:31 Pantoprazole (Protonix) 40 mg EVERY 12 HOURS ORAL 03/08/20 21:00 04/07/20 20:59 03/19/20 20:18 Phenol/Menthol (Chloraseptic) 1 spray TIDPRN PRN ORAL For Pain 03/06/20 19:00 06/04/20 18:59 Sevelamer Carbonate (Renvela) 1,600 mg THREE TIMES A DAY ORAL 03/09/20 09:00 06/07/20 08:59 03/19/20 17:03 Tamsulosin HCl (Flomax) 0.4 mg BID ORAL 03/08/20 11:30 04/07/20 11:29 03/19/20 17:03 Vitamin B Complex (Vitamin B Complex) 1 tab DAILY ORAL 03/07/20 09:00 06/05/20 08:59 03/19/20 11:25 Assessment/Plan Assessment/Plan IMPRESSION: 1. Improved pulmonary edema/ s/p HD 2. Hypertension. 3. Diabetes mellitus. 4. Renal failure. 5. COPD. 6. Negative COVID 19 DISCUSSION: Continue breathing treatments with albuterol and Atrovent Negative COVID 19 Broad-spectrum antibiotics will be given. I will follow carefully. HD per renal Oxygenation improved Will dc BiPAP this AM Start nasal O2 and check ABg Jie Rivera Omar Syed MD Mar 20, 2020 11:55
[2020-03-20 12:00] VITALS: BP 120/76
--- NOTE | 2020-03-20 12:21 | Nephrology Progress Note ---
Assessment/Plan Problem List: (1) Renal failure (ARF), acute on chronic (2) Hypoxia (3) CHF (congestive heart failure) (4) COPD (chronic obstructive pulmonary disease) (5) HTN (hypertension) (6) Hyperkalemia Assessment Acute renal failure Possible underlying chronic kidney disease Hyperkalemia Respiratory failure: Combination of diastolic CHF, COPD, possible pneumonia Hypertension Diabetes mellitus Negative COVID-19 rapid test Plan March 20: Patient in [place]. Dialyzed today. On BiPAP now. ABG improved. Discussed with . Continue to optimize pulmonary status and monitor renal parameters and dialysis as needed. Discussed with RN. Leukocytosis worsened. Continue per ID advice March 19: Labs reviewed. Dialyzed yesterday. Leukocytosis worsened. Continue per ID. Patient encephalopathic. Attempt dialysis tomorrow. March 18: Labs reviewed. Patient has a tunneled catheter. Will dialyze today. Continue placement process for outpatient hemodialysis. Discussed with RN. March 17: Labs reviewed. Serum creatinine rising. Patient needs to be continue on dialysis. Regretfully he pulled out his femoral dialysis catheter. Discussed with RN. Patient need to be consented for placement of tunneled dialysis catheter for continued dialysis. If needed, psychiatric clearance regarding if the patient is mentally fit to make decisions. March 16: Last hemodialysis March 14. Clinically doing well. Serum creatinine rising. Today creatinine is 3.7. Will check labs tomorrow if further rise of creatinine will arrange for dialysis and placement of the catheter for the outpatient dialysis due to acute on chronic renal failure. March 15: Last HD 03/14. Doing well. continue to monitor renal parameters . Discussed with Dr Caceres. Continue to rest March 14: Dialyzed March 12. Serum creatinine today 4.2. Will do dialysis and ultrafiltration today. Continue per pulmonary. March 13: Dialyzed yesterday. Serum creatinine 3.8 unchanged. Continue per pulmonary. Hemodialysis as needed. Continue to monitor renal parameters. March 12: Due for dialysis today. Discussed with pulmonary, patient due for right pleural effusion tap today. Labs reviewed. Continue per current management. Continue to monitor renal parameters. March 11: Patient was dialyzed 2 days in a row with total of 7 L fluid r emoval. Today's ABG still suggestive of hypoxia. Patient uncooperative and does not keep the oxygen mask on. Labs reviewed. Renal parameters reasonable. Will attempt dialysis again tomorrow. Will discuss with Dr. Caceres with regard to possible initiation of steroid's, if underlying COPD is a major cause for the current pulmonary state. March 10: Patient was dialyzed yesterday. Over 3 L ultrafiltration done. Patient will be dialyzed again today with ultrafiltration. Continue to monitor pulmonary status. Discussed with . March 09: Seen this morning during hemodialysis. Patient has a femoral catheter for dialysis access. Aim to ultrafiltrate 3 to 4 L. Postdialysis will stop IV Lasix. We will continue to monitor urine output and renal parameters. Phos binders ordered. Per orders. Ultrasound results noted. Previously: Since diuretic treatment is not working, and the patient is volume overloaded and has difficulty breathing with lower extremity edema and possible ascites will aim to dialyze and do ultrafiltration. Adjust blood pressure medication. Kidney ultrasound, results noted Flomax twice daily Adjust the diet. Change to renal Pulmonary toilet Afterload preload reduction Avoid nephrotoxic's Subjective ROS Limited/Unobtainable: Yes Objective Objective Last 24 Hour Vital Signs Date Time Temp Pulse Resp B/P (MAP) Pulse Ox O2 Delivery O2 Flow Rate FiO2 03/20/20 10:00 Bi-pap 40.0 03/20/20 09:55 75 18 100 Bi-Pap 40 81 18 98 03/20/20 09:55 99 Bi-Pap 40 03/20/20 09:00 Bi-pap 03/20/20 08:48 Bi-pap 40.0 03/20/20 08:00 96.7 64 21 157/81 (106) 100 03/20/20 08:00 77 03/20/20 07:05 57 18 99 40 03/20/20 05:31 153/68 03/20/20 04:54 64 19 100 40 03/20/20 04:00 73 03/20/20 04:00 97.4 75 21 153/68 (96) 99 03/20/20 02:56 68 18 99 40 03/20/20 01:34 65 19 98 40 03/20/20 00:00 69 03/20/20 00:00 97.8 61 18 161/80 (107) 97 03/19/20 22:39 65 19 100 40 03/19/20 21:57 73 18 166/77 98 03/19/20 21:27 72 20 169/72 98 03/19/20 21:25 169/78 03/19/20 21:09 69 21 100 Bi-Pap 50 73 18 100 50 03/19/20 20:00 97.5 72 22 169/78 (108) 98 03/19/20 20:00 70 03/19/20 20:00 Bi-pap 03/19/20 19:00 99 Bi-Pap 50 03/19/20 18:57 74 21 100 50 03/19/20 17:52 89 19 99 50 03/19/20 17:45 84 03/19/20 17:40 96.1 89 22 112/72 (85) 100 03/19/20 16:00 98.0 90 22 136/68 (90) 94 03/19/20 13:07 151/81 Intake and Output 03/19/20 03/20/20 19:00 07:00 Intake Total 480 ml 60 ml Balance 480 ml 60 ml Intake Oral 480 ml 60 ml # Voids 1 # Bowel Movements 1 Laboratory Tests 03/19/20 13:47: Arterial Blood pH 7.277L, Arterial Blood Partial Pressure CO2 58.6*H, Arterial Blood Partial Pressure O2 63.9L, Arterial Blood HCO3 26.7H, Arterial Blood Oxygen Saturation 90.2L, Arterial Blood Base Excess -0.9, Oscar Test Positive 03/19/20 16:17: POC Whole Blood Glucose [Pending] 03/19/20 17:00: POC Whole Blood Glucose 81 03/19/20 17:29: POC Whole Blood Glucose 131H 03/19/20 20:00: Arterial Blood pH 7.251L, Arterial Blood Partial Pressure CO2 71.1*H, Arterial Blood Partial Pressure O2 101.4H, Arterial Blood HCO3 30.5H, Arterial Blood Oxygen Saturation 96.9, Arterial Blood Base Excess 1.8, Oscar Test Positive 03/19/20 20:15: POC Whole Blood Glucose 175H 03/20/20 03:35: White Blood Count 23.5*H, Red Blood Count 4.14L, Hemoglobin 11.4L, Hematocrit 36.7L, Mean Corpuscular Volume 88, Mean Corpuscular Hemoglobin 27.6, Mean Corpuscular Hemoglobin Concent 31.2L, Red Cell Distribution Width 13.9, Platelet Count 199, Mean Platelet Volume 10.0, Neutrophils (%) (Auto) , Lymphocytes (%) (Auto) , Monocytes (%) (Auto) , Eosinophils (%) (Auto) , Basophils (%) (Auto) , Differential Total Cells Counted 100, Neutrophils % (Manual) 96H, Lymphocytes % (Manual) 2L, Monocytes % (Manual) 2, Eosinophils % (Manual) 0, Basophils % (Manual) 0, Band Neutrophils 0, Platelet Estimate Adequate, Platelet Morphology Normal, Hypochromasia 1+, Sodium Level 136, Potassium Level 4.8, Chloride Level 102, Carbon Dioxide Level 29, Anion Gap 5, Blood Urea Nitrogen 88H, Creatinine 3.8H, Estimat Glomerular Filtration Rate 19.3, Glucose Level 189H, Calcium Level 8.1L, Phosphorus Level 5.0H, Total Bilirubin 0.3, Aspartate Amino Transf (AST/SGOT) 24, Alanine Aminotransferase (ALT/SGPT) 34, Alkaline Phosphatase 86, Total Protein 5.7L, Albumin 2.3L, Globulin 3.4, Albumin/Globulin Ratio 0.7L 03/20/20 05:25: POC Whole Blood Glucose [Pending] 03/20/20 10:29: Arterial Blood pH 7.430, Arterial Blood Partial Pressure CO2 41.8, Arterial B lood Partial Pressure O2 131.9H, Arterial Blood HCO3 27.3H, Arterial Blood Oxygen Saturation 98.7, Arterial Blood Base Excess 2.8H, Oscar Test Positive Height (Feet): 5 Height (Inches): 9.00 Weight (Pounds): 228 General Appearance: mild distress EENT: other - On BiPAP Cardiovascular: normal rate Respiratory/Chest: decreased breath sounds Abdomen: distended Rene Singh MD Mar 20, 2020 12:21
--- NOTE | 2020-03-20 13:10 | General Progress Note ---
Subjective Allergies: Coded Allergies: PENICILLINS (Verified Allergy, Unknown, 03/06/20) Uncoded Allergies: SEAFOOD (Allergy, Unknown, 03/06/20) All Systems: reviewed and negative except above Subjective events noted glucose values in fair control Item Value Date Time Bedside Blood Glucose 182 mg/dl H 03/20/20 1239 Bedside Blood Glucose 201 mg/dl H 03/20/20 0941 Bedside Blood Glucose 201 mg/dl H 03/20/20 0630 Bedside Blood Glucose 175 mg/dl H 03/19/20 2100 Bedside Blood Glucose 131 mg/dl H 03/19/20 1740 Bedside Blood Glucose 255 mg/dl H 03/19/20 1238 Objective Last 24 Hour Vital Signs Date Time Temp Pulse Resp B/P (MAP) Pulse Ox O2 Delivery O2 Flow Rate FiO2 03/20/20 10:00 Bi-pap 40.0 03/20/20 09:55 75 18 100 Bi-Pap 40 81 18 98 03/20/20 09:55 99 Bi-Pap 40 03/20/20 09:00 Bi-pap 03/20/20 08:48 Bi-pap 40.0 03/20/20 08:00 96.7 64 21 157/81 (106) 100 03/20/20 08:00 77 03/20/20 07:05 57 18 99 40 03/20/20 05:31 153/68 03/20/20 04:54 64 19 100 40 03/20/20 04:00 73 03/20/20 04:00 97.4 75 21 153/68 (96) 99 03/20/20 02:56 68 18 99 40 03/20/20 01:34 65 19 98 40 03/20/20 00:00 69 03/20/20 00:00 97.8 61 18 161/80 (107) 97 03/19/20 22:39 65 19 100 40 03/19/20 21:57 73 18 166/77 98 03/19/20 21:27 72 20 169/72 98 03/19/20 21:25 169/78 03/19/20 21:09 69 21 100 Bi-Pap 50 73 18 100 50 03/19/20 20:00 97.5 72 22 169/78 (108) 98 03/19/20 20:00 70 03/19/20 20:00 Bi-pap 03/19/20 19:00 99 Bi-Pap 50 03/19/20 18:57 74 21 100 50 03/19/20 17:52 89 19 99 50 03/19/20 17:45 84 03/19/20 17:40 96.1 89 22 112/72 (85) 100 03/19/20 16:00 98.0 90 22 136/68 (90) 94 Intake and Output 03/19/20 03/20/20 19:00 07:00 Intake Total 480 ml 60 ml Balance 480 ml 60 ml Intake Oral 480 ml 60 ml # Voids 1 # Bowel Movements 1 Laboratory Tests 03/19/20 13:47: Arterial Blood pH 7.277L, Arterial Blood Partial Pressure CO2 58.6*H, Arterial Blood Partial Pressure O2 63.9L, Arterial Blood HCO3 26.7H, Arterial Blood Oxygen Saturation 90.2L, Arterial Blood Base Excess -0.9, Oscar Test Positive 03/19/20 16:17: POC Whole Blood Glucose [Pending] 03/19/20 17:00: POC Whole Blood Glucose 81 03/19/20 17:29: POC Whole Blood Glucose 131H 03/19/20 20:00: Arterial Blood pH 7.251L, Arterial Blood Partial Pressure CO2 71.1*H, Arterial Blood Partial Pressure O2 101.4H, Arterial Blood HCO3 30.5H, Arterial Blood Oxygen Saturation 96.9, Arterial Blood Base Excess 1.8, Oscar Test Positive 03/19/20 20:15: POC Whole Blood Glucose 175H 03/20/20 03:35: White Blood Count 23.5*H, Red Blood Count 4.14L, Hemoglobin 11.4L, Hematocrit 36.7L, Mean Corpuscular Volume 88, Mean Corpuscular Hemoglobin 27.6, Mean Corpuscular Hemoglobin Concent 31.2L, Red Cell Distribution Width 13.9, Platelet Count 199, Mean Platelet Volume 10.0, Neutrophils (%) (Auto) , Lymphocytes (%) (Auto) , Monocytes (%) (Auto) , Eosinophils (%) (Auto) , Basophils (%) (Auto) , Differential Total Cells Counted 100, Neutrophils % (Manual) 96H, Lymphocytes % (Manual) 2L, Monocytes % (Manual) 2, Eosinophils % (Manual) 0, Basophils % (Manual) 0, Band Neutrophils 0, Platelet Estimate Adequate, Platelet Morphology Normal, Hypochromasia 1+, Sodium Level 136, Potassium Level 4.8, Chloride Level 102, Carbon Dioxide Level 29, Anion Gap 5, Blood Urea Nitrogen 88H, Creatinine 3.8H, Estimat Glomerular Filtration Rate 19.3, Glucose Level 189H, Calcium Level 8.1L, Phosphorus Level 5.0H, Total Bilirubin 0.3, Aspartate Amino Transf (AST/SGOT) 24, Alanine Aminotransferase (ALT/SGPT) 34, Alkaline Phosphatase 86, Total Protein 5.7L, Albumin 2.3L, Globulin 3.4, Albumin/Globulin Ratio 0.7L 03/20/20 05:25: POC Whole Blood Glucose [Pending] 03/20/20 10:29: Arterial Blood pH 7.430, Arterial Blood Partial Pressure CO2 41.8, Arterial Blood Partial Pressure O2 131.9H, Arterial Blood HCO3 27.3H, Arterial Blood Oxygen Saturation 98.7, Arterial Blood Base Excess 2.8H, Oscar Test Positive Height (Feet): 5 Height (Inches): 9.00 Weight (Pounds): 228 General Appearance: no apparent distress Neck: normal alignment Cardiovascular: normal rate Respiratory/Chest: decreased breath sounds Abdomen: normal bowel sounds Objective Current Medications Medications (Trade) Dose Ordered Sig/Melissa Route PRN Reason Start Time Stop Time Status Last Admin Dose Admin Allopurinol (allopurinoL) 300 mg DAILY ORAL 03/09/20 14:30 04/08/20 14:29 03/19/20 11:24 Budesonide (Pulmicort) 0.25 mg EVERY 12 HOURS HHN 03/06/20 21:00 06/04/20 20:59 03/20/20 09:54 Chlorhexidine Gluconate (Cherry-Hex 2%) 1 applic DAILY@1999 TOPIC 03/17/20 20:00 06/15/20 19:59 03/19/20 20:18 Chlorhexidine Gluconate (Cherry-Hex 2%) 1 applic DAILY@1999 TOPIC 03/10/20 21:45 06/08/20 21:44 03/19/20 20:17 Citalopram Hydrobromide (CeleXA) 20 mg DAILY ORAL 03/10/20 09:00 04/09/20 08:59 03/19/20 11:24 Clonidine HCl (Catapres Tab) 0.1 mg Q4H PRN ORAL SBP>170 03/06/20 16:15 1/29/21 16:14 Dextrose (Dextrose 50%) 25 ml Q30M PRN IV Hypoglycemia 03/13/20 16:30 06/11/20 16:29 Dextrose (Dextrose 50%) 50 ml Q30M PRN IV Hypoglycemia 03/13/20 16:30 06/11/20 16:29 Diphenhydramine HCl (Benadryl) 50 mg Q6H PRN ORAL Itching 03/06/20 19:00 04/05/20 18:59 Docusate Sodium (Colace) 100 mg THREE TIMES A DAY ORAL 03/08/20 13:00 04/07/20 12:59 03/20/20 12:42 Guaifenesin/ Dextromethorphan (Robitussin DM Syrup) 10 ml Q4H PRN ORAL For Cough 03/06/20 19:00 06/04/20 18:59 03/12/20 00:51 Heparin Sodium (Porcine) (Heparin 5000 units/ml) 5,000 units BID SUBQ 03/07/20 09:00 04/21/20 08:59 03/19/20 17:05 Hydralazine HCl (Apresoline) 50 mg Q8HR ORAL 03/11/20 14:00 06/04/20 17:59 03/20/20 05:31 Insulin Aspart (NovoLOG) BEFORE MEALS AND HS SUBQ 03/13/20 16:30 06/11/20 16:29 03/20/20 12:37 Insulin Aspart (NovoLOG) 10 units NOVOTIAC SUBQ 03/17/20 11:50 06/13/20 06:29 03/20/20 12:39 Insulin Detemir (Levemir) 16 units BID SUBQ 03/17/20 09:00 06/13/20 08:59 03/20/20 09:41 Lisinopril (ZestriL) 5 mg DAILY ORAL 03/17/20 09:00 04/16/20 08:59 03/19/20 11:25 Lorazepam (Ativan 2mg/ml 1ml) 1 mg Q4H PRN IV Agitation 03/19/20 22:15 03/26/20 22:14 Lorazepam (Ativan) 1 mg Q6H PRN ORAL For Anxiety 03/15/20 11:47 03/22/20 11:46 03/19/20 21:27 Methylprednisolone Sodium Succinate (Solu-MEDROL) 40 mg EVERY 6 HOURS IVP 03/11/20 12:00 06/09/20 11:59 03/20/20 12:41 Pantoprazole (Protonix) 40 mg EVERY 12 HOURS ORAL 03/08/20 21:00 04/07/20 20:59 03/19/20 20:18 Phenol/Menthol (Chloraseptic) 1 spray TIDPRN PRN ORAL For Pain 03/06/20 19:00 06/04/20 18:59 Sevelamer Carbonate (Renvela) 1,600 mg THREE TIMES A DAY ORAL 03/09/20 09:00 06/07/20 08:59 03/20/20 12:42 Tamsulosin HCl (Flomax) 0.4 mg BID ORAL 03/08/20 11:30 04/07/20 11:29 03/19/20 17:03 Vitamin B Complex (Vitamin B Complex) 1 tab DAILY ORAL 03/07/20 09:00 06/05/20 08:59 03/19/20 11:25 Assessment/Plan Problem List: (1) Hyperglycemia ICD Codes: R73.9 - Hyperglycemia, unspecified SNOMED: 07170016 (2) COPD (chronic obstructive pulmonary disease) ICD Codes: J44.9 - Chronic obstructive pulmonary disease, unspecified SNOMED: 64767629 Qualifiers: Qualified Codes: J44.1 - Chronic obstructive pulmonary disease with (acute) exacerbation (3) CHF (congestive heart failure) ICD Codes: I50.9 - Heart failure, unspecified SNOMED: 64991359 Qualifiers: Qualified Codes: I50.9 - Heart failure, unspecified (4) Hypoxia ICD Codes: R09.02 - Hypoxemia SNOMED: 518345985 (5) Renal failure (ARF), acute on chronic ICD Codes: N17.9 - Acute kidney failure, unspecified; N18.9 - Chronic kidney disease, unspecified SNOMED: 698186651 Qualifiers: Qualified Codes: N17.9 - Acute kidney failure, unspecified; N18.4 - Chronic kidney disease, stage 4 (severe) (6) HTN (hypertension) ICD Codes: I10 - Essential (primary) hypertension SNOMED: 18913988 Status: progressing Assessment/Plan: continue Levemir 16 units bid continue Novolog 10 units ac tid continue Novolog sliding scale ac / hs John Taylor MD Mar 20, 2020 13:10
--- NOTE | 2020-03-20 13:53 | Cardiac Electrophysiology PN ---
Assessment/Plan Assessment/Plan 1. Severe bilateral lower extremity edema with shortness of breath and BNP of almost 4000. EF 60%. Due to CHF due to diastolic dysfunction and renal failure, on HD. 2. Hypertension. On HD , hydralazine 50 mg tid and p.r.n. clonidine. 3. Renal failure, creatinine was 3.9 that increased to >4 with BUN 80. Started on HD.Pulled out his Right groin Janusz cath S/P PermCath placement 03/17/20 4. COPD. DW RN Subjective Subjective No CP. ECG SR with RBBB, LAFB Got RFV Janusz and had HD 4 liters on 03/09 and 3 liters on 03/10 On Nasal Cannula. S/P Right chest PermCath placement and 2.3 liter HD today Objective Last 24 Hour Vital Signs Date Time Temp Pulse Resp B/P (MAP) Pulse Ox O2 Delivery O2 Flow Rate FiO2 03/20/20 12:00 79 03/20/20 12:00 96.7 84 18 120/76 (91) 99 03/20/20 10:00 Bi-pap 40.0 03/20/20 09:55 75 18 100 Bi-Pap 40 81 18 98 03/20/20 09:55 99 Bi-Pap 40 03/20/20 09:00 Bi-pap 03/20/20 08:48 Bi-pap 40.0 03/20/20 08:00 96.7 64 21 157/81 (106) 100 03/20/20 08:00 77 03/20/20 07:05 57 18 99 40 03/20/20 05:31 153/68 03/20/20 04:54 64 19 100 40 03/20/20 04:00 73 03/20/20 04:00 97.4 75 21 153/68 (96) 99 03/20/20 02:56 68 18 99 40 03/20/20 01:34 65 19 98 40 03/20/20 00:00 69 03/20/20 00:00 97.8 61 18 161/80 (107) 97 03/19/20 22:39 65 19 100 40 03/19/20 21:57 73 18 166/77 98 03/19/20 21:27 72 20 169/72 98 03/19/20 21:25 169/78 03/19/20 21:09 69 21 100 Bi-Pap 50 73 18 100 50 03/19/20 20:00 97.5 72 22 169/78 (108) 98 03/19/20 20:00 70 03/19/20 20:00 Bi-pap 03/19/20 19:00 99 Bi-Pap 50 03/19/20 18:57 74 21 100 50 03/19/20 17:52 89 19 99 50 03/19/20 17:45 84 03/19/20 17:40 96.1 89 22 112/72 (85) 100 03/19/20 16:00 98.0 90 22 136/68 (90) 94 Intake and Output 03/19/20 03/20/20 19:00 07:00 Intake Total 480 ml 60 ml Balance 480 ml 60 ml Intake Oral 480 ml 60 ml # Voids 1 # Bowel Movements 1 Laboratory Tests Test 03/19/20 16:17 03/19/20 17:00 03/19/20 17:29 03/19/20 20:00 POC Whole Blood Glucose Pending 81 MG/DL (74-106) 131 MG/DL (74-106) H Arterial Blood pH 7.251 (7.350-7.450) Arterial Blood Partial Pressure CO2 71.1 mmHg (35.0-45.0) *H Arterial Blood Partial Pressure O2 101.4 mmHg (75.0-100.0) H Arterial Blood HCO3 30.5 mmol/L (22.0-26.0) H Arterial Blood Oxygen Saturation 96.9 % (95-100) Arterial Blood Base Excess 1.8 (-2-2) Oscar Test Positive Test 03/19/20 20:15 03/20/20 03:35 03/20/20 05:25 03/20/20 10:29 POC Whole Blood Glucose 175 MG/DL (74-106) H Pending White Blood Count 23.5 K/UL (4.8-10.8) *H Red Blood Count 4.14 M/UL (4.70-6.10) L Hemoglobin 11.4 G/DL (14.2-18.0) L Hematocrit 36.7 % (42.0-52.0) L Mean Corpuscular Volume 88 FL (80-99) Mean Corpuscular Hemoglobin 27.6 PG (27.0-31.0) Mean Corpuscular Hemoglobin Concent 31.2 G/DL (32.0-36.0) L Red Cell Distribution Width 13.9 % (11.6-14.8) Platelet Count 199 K/UL (150-450) Mean Platelet Volume 10.0 FL (6.5-10.1) Neutrophils (%) (Auto) % (45.0-75.0) Lymphocytes (%) (Auto) % (20.0-45.0) Monocytes (%) (Auto) % (1.0-10.0) Eosinophils (%) (Auto) % (0.0-3.0) Basophils (%) (Auto) % (0.0-2.0) Differential Total Cells Counted 100 Neutrophils % (Manual) 96 % (45-75) H Lymphocytes % (Manual) 2 % (20-45) L Monocytes % (Manual) 2 % (1-10) Eosinophils % (Manual) 0 % (0-3) Basophils % (Manual) 0 % (0-2) Band Neutrophils 0 % (0-8) Platelet Estimate Adequate Platelet Morphology Normal Hypochromasia 1+ Sodium Level 136 MMOL/L (136-145) Potassium Level 4.8 MMOL/L (3.5-5.1) Chloride Level 102 MMOL/L (98-107) Carbon Dioxide Level 29 MMOL/L (21-32) Anion Gap 5 mmol/L (5-15) Blood Urea Nitrogen 88 mg/dL (7-18) H Creatinine 3.8 MG/DL (0.55-1.30) H Estimat Glomerular Filtration Rate 19.3 mL/min (>60) Glucose Level 189 MG/DL (74-106) H Calcium Level 8.1 MG/DL (8.5-10.1) L Phosphorus Level 5.0 MG/DL (2.5-4.9) H Total Bilirubin 0.3 MG/DL (0.2-1.0) Aspartate Amino Transf (AST/SGOT) 24 U/L (15-37) Alanine Aminotransferase (ALT/SGPT) 34 U/L (12-78) Alkaline Phosphatase 86 U/L (46-116) Total Protein 5.7 G/DL (6.4-8.2) L Albumin 2.3 G/DL (3.4-5.0) L Globulin 3.4 g/dL Albumin/Globulin Ratio 0.7 (1.0-2.7) L Arterial Blood pH 7.430 (7.350-7.450) Arterial Blood Partial Pressure CO2 41.8 mmHg (35.0-45.0) Arterial Blood Partial Pressure O2 131.9 mmHg (75.0-100.0) H Arterial Blood HCO3 27.3 mmol/L (22.0-26.0) H Arterial Blood Oxygen Saturation 98.7 % (95-100) Arterial Blood Base Excess 2.8 (-2-2) H Oscar Test Positive Objective HEAD AND NECK: Positive JVD. LUNGS: Decreased breath sounds. Right chest PermCath in place CARDIOVASCULAR: Regular S1 and S2 with no gallop. ABDOMEN: Soft. EXTREMITIES: 2+ pitting edema in lower extremities as well as 2+ pitting edema in right arm. Ponce Serna MD Mar 20, 2020 13:53
--- NOTE | 2020-03-20 13:56 | Diagnostic Imaging Report ---
EXAM: XR Chest, 1 View CLINICAL HISTORY: INFECT TECHNIQUE: Frontal view of the chest. COMPARISON: Chest radiograph on 03/15/2020 FINDINGS: Hardware: Right dual-lumen central venous catheter terminates in the region of the SVC. Lungs/pleura: Elevation of the right hemidiaphragm. Right pleural effusion. Lower lung opacities may represent atelectasis versus infectious/inflammatory process. Possible component of edema. Left costophrenic angle are not included in the [id number]. Heart/mediastinum: Stable mild enlargement of the cardiac silhouette. Soft tissues: Unremarkable. Bones: No acute fracture. Upper abdomen: Normal. IMPRESSION: 1. Elevation of the right hemidiaphragm. Right pleural effusion. Lower lung opacities may represent atelectasis versus infectious/inflammatory process. Possible component of edema. 2. Right dual-lumen central venous catheter terminates in the region of the SVC.
--- NOTE | 2020-03-20 14:23 | NUR ---
RADIOLOGY DEPT., CHEST X-RAY DONE.-P.DYE
--- NOTE | 2020-03-20 15:55 | Infectious Diseases Prog Note ---
Assessment/Plan Assessment/Plan IMPRESSION: 1. Pneumonia. 2. COPD. 3. Pulmonary edema. 4. CHF. 5. Diabetes mellitus. 6. Hypertension. 7. ESRD 8. Anemia. 9. BPH. 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 Pleural effusion 12. Leukocytosis, worsening RECOMMENDATION: Start on Levaquin Taper steroids will f/u CBC Subjective ROS Limited/Unobtainable: Yes Constitutional: Reports: no symptoms Respiratory: Reports: other - transferred to [facility] because of hypercapnia Gastrointestinal/Abdominal: Reports: no symptoms Allergies: Coded Allergies: PENICILLINS (Verified Allergy, Unknown, 03/06/20) Uncoded Allergies: SEAFOOD (Allergy, Unknown, 03/06/20) Objective Last 24 Hour Vital Signs Date Time Temp Pulse Resp B/P (MAP) Pulse Ox O2 Delivery O2 Flow Rate FiO2 03/20/20 15:05 120/76 03/20/20 12:00 79 03/20/20 12:00 96.7 84 18 120/76 (91) 99 03/20/20 11:40 97 Nasal Cannula 2.0 28 03/20/20 11:30 66 20 99 40 03/20/20 10:00 Bi-pap 40.0 03/20/20 09:55 75 18 100 Bi-Pap 40 81 18 98 03/20/20 09:55 99 Bi-Pap 40 03/20/20 09:54 62 18 98 Bi-Pap 40 69 18 100 40 03/20/20 09:00 Bi-pap 03/20/20 08:48 Bi-pap 40.0 03/20/20 08:00 96.7 64 21 157/81 (106) 100 03/20/20 08:00 77 03/20/20 07:05 57 18 99 40 03/20/20 05:31 153/68 03/20/20 04:54 64 19 100 40 03/20/20 04:00 73 03/20/20 04:00 97.4 75 21 153/68 (96) 99 03/20/20 02:56 68 18 99 40 03/20/20 01:34 65 19 98 40 03/20/20 00:00 69 03/20/20 00:00 97.8 61 18 161/80 (107) 97 03/19/20 22:39 65 19 100 40 03/19/20 21:57 73 18 166/77 98 03/19/20 21:27 72 20 169/72 98 03/19/20 21:25 169/78 03/19/20 21:09 69 21 100 Bi-Pap 50 73 18 100 50 03/19/20 20:00 97.5 72 22 169/78 (108) 98 03/19/20 20:00 70 03/19/20 20:00 Bi-pap 03/19/20 19:00 99 Bi-Pap 50 03/19/20 18:57 74 21 100 50 03/19/20 17:52 89 19 99 50 03/19/20 17:45 84 03/19/20 17:40 96.1 89 22 112/72 (85) 100 03/19/20 16:00 98.0 90 22 136/68 (90) 94 Height (Feet): 5 Height (Inches): 9.00 Weight (Pounds): 228 General Appearance: no acute distress HEENT: mucous membranes moist Respiratory/Chest: lungs clear, other - oxygen by nasal cannula Cardiovascular: normal rate Abdomen: soft, non tender Extremities: other - SCD of legs Neurologic/Psychiatric: alert, responsive Laboratory Tests Test 03/19/20 16:17 03/19/20 17:00 03/19/20 17:29 03/19/20 20:00 POC Whole Blood Glucose Pending 81 MG/DL (74-106) 131 MG/DL (74-106) H Arterial Blood pH 7.251 (7.350-7.450) Arterial Blood Partial Pressure CO2 71.1 mmHg (35.0-45.0) *H Arterial Blood Partial Pressure O2 101.4 mmHg (75.0-100.0) H Arterial Blood HCO3 30.5 mmol/L (22.0-26.0) H Arterial Blood Oxygen Saturation 96.9 % (95-100) Arterial Blood Base Excess 1.8 (-2-2) Oscar Test Positive Test 03/19/20 20:15 03/20/20 03:35 03/20/20 05:25 03/20/20 10:29 POC Whole Blood Glucose 175 MG/DL (74-106) H Pending White Blood Count 23.5 K/UL (4.8-10.8) *H Red Blood Count 4.14 M/UL (4.70-6.10) L Hemoglobin 11.4 G/DL (14.2-18.0) L Hematocrit 36.7 % (42.0-52.0) L Mean Corpuscular Volume 88 FL (80-99) Mean Corpuscular Hemoglobin 27.6 PG (27.0-31.0) Mean Corpuscular Hemoglobin Concent 31.2 G/DL (32.0-36.0) L Red Cell Distribution Width 13.9 % (11.6-14.8) Platelet Count 199 K/UL (150-450) Mean Platelet Volume 10.0 FL (6.5-10.1) Neutrophils (%) (Auto) % (45.0-75.0) Lymphocytes (%) (Auto) % (20.0-45.0) Monocytes (%) (Auto) % (1.0-10.0) Eosinophils (%) (Auto) % (0.0-3.0) Basophils (%) (Auto) % (0.0-2.0) Differential Total Cells Counted 100 Neutrophils % (Manual) 96 % (45-75) H Lymphocytes % (Manual) 2 % (20-45) L Monocytes % (Manual) 2 % (1-10) Eosinophils % (Manual) 0 % (0-3) Basophils % (Manual) 0 % (0-2) Band Neutrophils 0 % (0-8) Platelet Estimate Adequate Platelet Morphology Normal Hypochromasia 1+ Sodium Level 136 MMOL/L (136-145) Potassium Level 4.8 MMOL/L (3.5-5.1) Chloride Level 102 MMOL/L (98-107) Carbon Dioxide Level 29 MMOL/L (21-32) Anion Gap 5 mmol/L (5-15) Blood Urea Nitrogen 88 mg/dL (7-18) H Creatinine 3.8 MG/DL (0.55-1.30) H Estimat Glomerular Filtration Rate 19.3 mL/min (>60) Glucose Level 189 MG/DL (74-106) H Calcium Level 8.1 MG/DL (8.5-10.1) L Phosphorus Level 5.0 MG/DL (2.5-4.9) H Total Bilirubin 0.3 MG/DL (0.2-1.0) Aspartate Amino Transf (AST/SGOT) 24 U/L (15-37) Alanine Aminotransferase (ALT/SGPT) 34 U/L (12-78) Alkaline Phosphatase 86 U/L (46-116) Total Protein 5.7 G/DL (6.4-8.2) L Albumin 2.3 G/DL (3.4-5.0) L Globulin 3.4 g/dL Albumin/Globulin Ratio 0.7 (1.0-2.7) L Arterial Blood pH 7.430 (7.350-7.450) Arterial Blood Partial Pressure CO2 41.8 mmHg (35.0-45.0) Arterial Blood Partial Pressure O2 131.9 mmHg (75.0-100.0) H Arterial Blood HCO3 27.3 mmol/L (22.0-26.0) H Arterial Blood Oxygen Saturation 98.7 % (95-100) Arterial Blood Base Excess 2.8 (-2-2) H Oscar Test Positive Test 03/20/20 14:55 Arterial Blood pH 7.376 (7.350-7.450) Arterial Blood Partial Pressure CO2 49.7 mmHg (35.0-45.0) H Arterial Blood Partial Pressure O2 75.8 mmHg (75.0-100.0) Arterial Blood HCO3 28.5 mmol/L (22.0-26.0) H Arterial Blood Oxygen Saturation 95.4 % (95-100) Arterial Blood Base Excess 2.6 (-2-2) H Oscar Test Positive Current Medications Medications (Trade) Dose Ordered Sig/Melissa Route PRN Reason Start Time Stop Time Status Last Admin Dose Admin Allopurinol (allopurinoL) 300 mg DAILY ORAL 03/09/20 14:30 04/08/20 14:29 03/19/20 11:24 Budesonide (Pulmicort) 0.25 mg EVERY 12 HOURS N 03/06/20 21:00 06/04/20 20:59 03/20/20 09:54 Chlorhexidine Gluconate (Cherry-Hex 2%) 1 applic DAILY@1999 TOPIC 03/17/20 20:00 06/15/20 19:59 03/19/20 20:18 Chlorhexidine Gluconate (Cherry-Hex 2%) 1 applic DAILY@1999 TOPIC 03/10/20 21:45 06/08/20 21:44 03/19/20 20:17 Citalopram Hydrobromide (CeleXA) 20 mg DAILY ORAL 03/10/20 09:00 04/09/20 08:59 03/19/20 11:24 Clonidine HCl (Catapres Tab) 0.1 mg Q4H PRN ORAL SBP>170 03/06/20 16:15 06/04/20 16:14 Dextrose (Dextrose 50%) 25 ml Q30M PRN IV Hypoglycemia 03/13/20 16:30 06/11/20 16:29 Dextrose (Dextrose 50%) 50 ml Q30M PRN IV Hypoglycemia 03/13/20 16:30 06/11/20 16:29 Diphenhydramine HCl (Benadryl) 50 mg Q6H PRN ORAL Itching 03/06/20 19:00 04/05/20 18:59 Docusate Sodium (Colace) 100 mg THREE TIMES A DAY ORAL 03/08/20 13:00 04/07/20 12:59 03/20/20 12:42 Guaifenesin/ Dextromethorphan (Robitussin DM Syrup) 10 ml Q4H PRN ORAL For Cough 03/06/20 19:00 06/04/20 18:59 03/12/20 00:51 Heparin Sodium (Porcine) (Heparin 5000 units/ml) 5,000 units BID SUBQ 03/07/20 09:00 04/21/20 08:59 03/19/20 17:05 Hydralazine HCl (Apresoline) 50 mg Q8HR ORAL 03/11/20 14:00 06/04/20 17:59 03/20/20 15:05 Insulin Aspart (NovoLOG) BEFORE MEALS AND HS SUBQ 03/13/20 16:30 06/11/20 16:29 03/20/20 12:37 Insulin Aspart (NovoLOG) 10 units NOVOTIAC SUBQ 03/17/20 11:50 06/13/20 06:29 03/20/20 12:39 Insulin Detemir (Levemir) 16 units BID SUBQ 03/17/20 09:00 06/13/20 08:59 03/20/20 09:41 Lisinopril (ZestriL) 5 mg DAILY ORAL 03/17/20 09:00 04/16/20 08:59 03/19/20 11:25 Lorazepam (Ativan 2mg/ml 1ml) 1 mg Q4H PRN IV Agitation 03/19/20 22:15 03/26/20 22:14 Lorazepam (Ativan) 1 mg Q6H PRN ORAL For Anxiety 03/15/20 11:47 03/22/20 11:46 03/19/20 21:27 Methylprednisolone Sodium Succinate (Solu-MEDROL) 40 mg EVERY 6 HOURS IVP 03/11/20 12:00 06/09/20 11:59 03/20/20 12:41 Pantoprazole (Protonix) 40 mg EVERY 12 HOURS ORAL 03/08/20 21:00 04/07/20 20:59 03/19/20 20:18 Phenol/Menthol (Chloraseptic) 1 spray TIDPRN PRN ORAL For Pain 03/06/20 19:00 06/04/20 18:59 Sevelamer Carbonate (Renvela) 1,600 mg THREE TIMES A DAY ORAL 03/09/20 09:00 06/07/20 08:59 03/20/20 12:42 Tamsulosin HCl (Flomax) 0.4 mg BID ORAL 03/08/20 11:30 04/07/20 11:29 03/19/20 17:03 Vitamin B Complex (Vitamin B Complex) 1 tab DAILY ORAL 03/07/20 09:00 06/05/20 08:59 03/19/20 11:25 Brett Pleitez MD Mar 20, 2020 15:55
[2020-03-20 16:00] VITALS: BP 124/82
--- NOTE | 2020-03-20 17:10 | NUR ---
NURSE NOTES: Pt. refused to be clean. Refused to reposition in the middle of the bed. Pt. leaning on the edge of the bed. Bed alarmed on. Pt. refused to be put back on bilateral soft wrist restraints. Pt. seems calmed.
[2020-03-20] MEDS: Levofloxacin 750mg tab ORAL SCH (17:29)
--- NOTE | 2020-03-20 19:13 | NUR ---
NURSE HAND-OFF REPORT: Important Events on Shift: Off Bipap now and O2 at 2LPM via NC. Last Abg WNL. S/P HD this morning Patient Status: STABLE Diet: RENAL Pending Orders: Pending Results/Labs: Pending MD notification: Latest Vital Signs: Temperature 97.8 , Pulse 76 , B/P 124 /82 , Respiratory Rate 20 , O2 SAT 100 , Bi-pap, O2 Flow Rate 2.0 . Vital Sign Comment: EKG Rhythm: Sinus Rhythm Rhythm change?: N MD Notified?: N - MD Response: Latest Ryan Fall Score: 60 Fall Risk: High Risk Safety Measures: Call light Within Reach, Bed Alarm Zone 1, Side Rails Side Rails x2, Bed position Low and Locked. Fall Precautions: Yellow Socks Yellow Gown Patient Fall Education Report given to Alexei TAMAYO.
--- NOTE | 2020-03-20 19:51 | NUR ---
NURSE NOTES: Report received from Iliana TAMAYO. Patient is noted to be awake and alert x 3. Patient is noted to currently be on 2 liters of oxygen via nasal canula at this time. Patient has no complaints of chest pain or shortness of breath at this time. Was endorsed to Alexei TAMAYO that patient was recently titrated down from BiPap and that patient requires frequent re-education to keep oxygen on. Patient is noted to have right upper chest permacatheter, was endorsed that dressing was changed today and that patient received dialysis today. Was endorsed that 2.3 liters was removed. Patient is considered a high fall risk, Alexei TAMAYO educated the patient to call prior to getting up out of bed. Patient verbalized understanding. bed is locked, alarmed, and in lowest position. Call light in reach.
[2020-03-20 20:00] VITALS: BP 155/93
[2020-03-20] MEDS: Dyna-Hex 2% Top Sol 2oz TOPIC SCH ×2 (21:12)
--- NOTE | 2020-03-20 21:24 | General Progress Note ---
Subjective ROS Limited/Unobtainable: Yes Allergies: Coded Allergies: PENICILLINS (Verified Allergy, Unknown, 03/06/20) Uncoded Allergies: SEAFOOD (Allergy, Unknown, 03/06/20) Objective Last 24 Hour Vital Signs Date Time Temp Pulse Resp B/P (MAP) Pulse Ox O2 Delivery O2 Flow Rate FiO2 03/20/20 21:13 155/93 03/20/20 20:00 82 18 98 Nasal Cannula 3.0 32 80 18 94 03/20/20 20:00 95 Nasal Cannula 2.0 28 03/20/20 16:00 78 03/20/20 16:00 97.8 76 20 124/82 (96) 100 03/20/20 15:05 120/76 03/20/20 12:00 79 03/20/20 12:00 96.7 84 18 120/76 (91) 99 03/20/20 11:40 97 Nasal Cannula 2.0 28 03/20/20 11:30 66 20 99 40 03/20/20 10:00 Bi-pap 40.0 03/20/20 09:55 75 18 100 Bi-Pap 40 81 18 98 03/20/20 09:55 99 Bi-Pap 40 03/20/20 09:54 62 18 98 Bi-Pap 40 69 18 100 40 03/20/20 09:00 Bi-pap 03/20/20 08:48 Bi-pap 40.0 03/20/20 08:00 96.7 64 21 157/81 (106) 100 03/20/20 08:00 77 03/20/20 07:05 57 18 99 40 03/20/20 05:31 153/68 03/20/20 04:54 64 19 100 40 03/20/20 04:00 73 03/20/20 04:00 97.4 75 21 153/68 (96) 99 03/20/20 02:56 68 18 99 40 03/20/20 01:34 65 19 98 40 03/20/20 00:00 69 03/20/20 00:00 97.8 61 18 161/80 (107) 97 03/19/20 22:39 65 19 100 40 03/19/20 21:57 73 18 166/77 98 03/19/20 21:27 72 20 169/72 98 03/19/20 21:25 169/78 Intake and Output 03/19/20 03/20/20 19:00 07:00 Intake Total 480 ml 60 ml Balance 480 ml 60 ml Intake Oral 480 ml 60 ml # Voids 1 # Bowel Movements 1 Laboratory Tests 03/20/20 03:35: White Blood Count 23.5*H, Red Blood Count 4.14L, Hemoglobin 11.4L, Hematocrit 36.7L, Mean Corpuscular Volume 88, Mean Corpuscular Hemoglobin 27.6, Mean Corpuscular Hemoglobin Concent 31.2L, Red Cell Distribution Width 13.9, Platelet Count 199, Mean Platelet Volume 10.0, Neutrophils (%) (Auto) , Lymphocytes (%) (Auto) , Monocytes (%) (Auto) , Eosinophils (%) (Auto) , Basophils (%) (Auto) , Differential Total Cells Counted 100, Neutrophils % (Manual) 96H, Lymphocytes % (Manual) 2L, Monocytes % (Manual) 2, Eosinophils % (Manual) 0, Basophils % (Manual) 0, Band Neutrophils 0, Platelet Estimate Adequate, Platelet Morphology Normal, Hypochromasia 1+, Sodium Level 136, Potassium Level 4.8, Chloride Level 102, Carbon Dioxide Level 29, Anion Gap 5, Blood Urea Nitrogen 88H, Creatinine 3.8H, Estimat Glomerular Filtration Rate 19.3, Glucose Level 189H, Calcium Level 8.1L, Phosphorus Level 5.0H, Total Bilirubin 0.3, Aspartate Amino Transf (AST/SGOT) 24, Alanine Aminotransferase (ALT/SGPT) 34, Alkaline Phosphatase 86, Total Protein 5.7L, Albumin 2.3L, Globulin 3.4, Albumin/Globulin Ratio 0.7L 03/20/20 05:25: POC Whole Blood Glucose [Pending] 03/20/20 10:29: Arterial Blood pH 7.430, Arterial Blood Partial Pressure CO2 41.8, Arterial Blood Partial Pressure O2 131.9H, Arterial Blood HCO3 27.3H, Arterial Blood Oxygen Saturation 98.7, Arterial Blood Base Excess 2.8H, Oscar Test Positive 03/20/20 14:55: Arterial Blood pH 7.376, Arterial Blood Partial Pressure CO2 49.7H, Arterial Blood Partial Pressure O2 75.8, Arterial Blood HCO3 28.5H, Arterial Blood Oxygen Saturation 95.4, Arterial Blood Base Excess 2.6H, Oscar Test Positive 03/20/20 21:06: POC Whole Blood Glucose 238H Height (Feet): 5 Height (Inches): 9.00 Weight (Pounds): 228 Assessment/Plan Problem List: (1) COPD (chronic obstructive pulmonary disease) ICD Codes: J44.9 - Chronic obstructive pulmonary disease, unspecified SNOMED: 99358236 Qualifiers: Qualified Codes: J44.1 - Chronic obstructive pulmonary disease with (acute) exacerbation (2) CHF (congestive heart failure) ICD Codes: I50.9 - Heart failure, unspecified SNOMED: 71687525 Qualifiers: Qualified Codes: I50.9 - Heart failure, unspecified (3) Hypoxia ICD Codes: R09.02 - Hypoxemia SNOMED: 519656404 (4) Renal failure (ARF), acute on chronic ICD Codes: N17.9 - Acute kidney failure, unspecified; N18.9 - Chronic kidney disease, unspecified SNOMED: 372210303 Qualifiers: Qualified Codes: N17.9 - Acute kidney failure, unspecified; N18.4 - Chronic kidney disease, stage 4 (severe) Status: progressing Assessment/Plan: afebrile copd resp insuff chf fluid overload esrd on hd per renal prn oxygen John Chavez MD Mar 20, 2020 21:24
--- NOTE | 2020-03-20 22:57 | NUR ---
NURSE NOTES: Note that patient has right upper chest permacath placement for dialysis. At this time this is not an option as a selection under the Shift Mandatory Screen. The permacath was place on March 17, 2020 and orders are in place from MD stating that it is okay to be used. Was endorsed to Alexei TAMAYO that dressing was changed today March 20, 2020 by dialysis nurse. Dressing is currently clean, dry, and intact.
--- NOTE | 2020-03-20 23:13 | Psychiatric Progress Note ---
Psychiatry Progress Note Psychiatry Progress Note Subjective the pt is having anxiety compliant no behavioral issues the pt has capacity to give consent. Medications Current Medications Medications (Trade) Dose Ordered Sig/Melissa Route PRN Reason Start Time Stop Time Status Last Admin Dose Admin Allopurinol (allopurinoL) 300 mg DAILY ORAL 03/09/20 14:30 04/08/20 14:29 03/19/20 11:24 Budesonide (Pulmicort) 0.25 mg EVERY 12 HOURS HHN 03/06/20 21:00 06/04/20 20:59 03/20/20 20:14 Chlorhexidine Gluconate (Cherry-Hex 2%) 1 applic DAILY@1999 TOPIC 03/17/20 20:00 06/15/20 19:59 03/20/20 21:12 Chlorhexidine Gluconate (Cherry-Hex 2%) 1 applic DAILY@1999 TOPIC 03/10/20 21:45 06/08/20 21:44 03/20/20 21:12 Citalopram Hydrobromide (CeleXA) 20 mg DAILY ORAL 03/10/20 09:00 04/09/20 08:59 03/19/20 11:24 Clonidine HCl (Catapres Tab) 0.1 mg Q4H PRN ORAL SBP>170 03/06/20 16:15 06/04/20 16:14 Dextrose (Dextrose 50%) 25 ml Q30M PRN IV Hypoglycemia 03/13/20 16:30 06/11/20 16:29 Dextrose (Dextrose 50%) 50 ml Q30M PRN IV Hypoglycemia 03/13/20 16:30 06/11/20 16:29 Diphenhydramine HCl (Benadryl) 50 mg Q6H PRN ORAL Itching 03/06/20 19:00 04/05/20 18:59 Docusate Sodium (Colace) 100 mg THREE TIMES A DAY ORAL 03/08/20 13:00 04/07/20 12:59 03/20/20 17:30 Guaifenesin/ Dextromethorphan (Robitussin DM Syrup) 10 ml Q4H PRN ORAL For Cough 03/06/20 19:00 06/04/20 18:59 03/12/20 00:51 Heparin Sodium (Porcine) (Heparin 5000 units/ml) 5,000 units BID SUBQ 03/07/20 09:00 04/21/20 08:59 03/20/20 17:35 Hydralazine HCl (Apresoline) 50 mg Q8HR ORAL 03/11/20 14:00 06/04/20 17:59 03/20/20 21:13 Insulin Aspart (NovoLOG) BEFORE MEALS AND HS SUBQ 03/13/20 16:30 06/11/20 16:29 03/20/20 21:14 Insulin Aspart (NovoLOG) 10 units NOVOTIAC SUBQ 03/17/20 11:50 06/13/20 06:29 03/20/20 12:39 Insulin Detemir (Levemir) 16 units BID SUBQ 03/17/20 09:00 06/13/20 08:59 03/20/20 17:36 Levofloxacin (Levaquin) 750 mg Q48H ORAL 03/20/20 17:00 03/27/20 16:59 03/20/20 17:29 Lisinopril (ZestriL) 5 mg DAILY ORAL 03/17/20 09:00 04/16/20 08:59 03/19/20 11:25 Lorazepam (Ativan 2mg/ml 1ml) 1 mg Q4H PRN IV Agitation 03/19/20 22:15 03/26/20 22:14 Lorazepam (Ativan) 1 mg Q6H PRN ORAL For Anxiety 03/15/20 11:47 03/22/20 11:46 03/19/20 21:27 Methylprednisolone Sodium Succinate (Solu-MEDROL) 40 mg EVERY 6 HOURS IVP 03/11/20 12:00 06/09/20 11:59 03/20/20 17:29 Pantoprazole (Protonix) 40 mg EVERY 12 HOURS ORAL 03/08/20 21:00 04/07/20 20:59 03/20/20 21:12 Phenol/Menthol (Chloraseptic) 1 spray TIDPRN PRN ORAL For Pain 03/06/20 19:00 06/04/20 18:59 Sevelamer Carbonate (Renvela) 1,600 mg THREE TIMES A DAY ORAL 03/09/20 09:00 06/07/20 08:59 03/20/20 17:31 Tamsulosin HCl (Flomax) 0.4 mg BID ORAL 03/08/20 11:30 04/07/20 11:29 03/20/20 17:31 Vitamin B Complex (Vitamin B Complex) 1 tab DAILY ORAL 03/07/20 09:00 06/05/20 08:59 03/19/20 11:25 Neurological/Psychiatric: Reports: anxiety, depressed, emotional problems Allergies: Coded Allergies: PENICILLINS (Verified Allergy, Unknown, 03/06/20) Uncoded Allergies: SEAFOOD (Allergy, Unknown, 03/06/20) Objective Data Height (Feet): 5 Height (Inches): 9.00 Weight (Pounds): 228 General Appearance: no apparent distress Mental Status Exam - Mood: anxious Additional Comments: alert and oriented times self, place, and situation. Mood is anxious. Affect is blunted, congruent with mood. Thought process is linear and goal oriented. Thought content, no suicidal or homicidal ideation. Cognition is intact. Insight and judgment is fair. Assessment/Plan [place] I: ASSESSMENT: [place] I Anxiety disorder. [place] II Deferred. [place] III As above. [place] IV Low. [place] V 50. PLAN: 1. We will start the patient on Celexa 20 mg in the morning. 2. Ativan as needed. 3. Provide the patient with reality orientation, supportive therapy, and medication. 4. the pt has capacity to make decisions Status: progressing Status Narrative ASSESSMENT: [place] I Anxiety disorder. [place] II Deferred. [place] III As above. [place] IV Low. [place] V 50. PLAN: 1. We will start the patient on Celexa 20 mg in the morning. 2. Ativan as needed. 3. Provide the patient with reality orientation, supportive therapy, and medication. 4. the pt has capacity to make decisions Assessment/Plan: ASSESSMENT: [place] I Anxiety disorder. [place] II Deferred. [place] III As above. [place] IV Low. [place] V 50. PLAN: 1. We will start the patient on Celexa 20 mg in the morning. 2. Ativan as needed. 3. Provide the patient with reality orientation, supportive therapy, and medication. 4. the pt has capacity to make decisions Kwasi Diaz MD Mar 20, 2020 23:13
--- NOTE | 2020-03-20 23:34 | NUR ---
NURSE NOTES: Patient noted to be placed on BiPap per MD orders.
[2020-03-21] VITALS: BP 135/85
--- NOTE | 2020-03-21 02:27 | NUR ---
NURSE NOTES: Patient removed BiPap. Patient refused to put BiPap back on. Jayson from [facility] came to assess the patient and placed patient back on Nasal Canula 2 L. Patient now asleep in bed.
[2020-03-21 04:00] VITALS: BP 137/75
--- NOTE | 2020-03-21 04:34 | NUR ---
NURSE NOTES: sponge bath done. patient able to wash self. complete bed change done. It was at this time that it was notice that patient had skin break down on right elbow. appears to be new wound, no previous documentation. initial wound assessment done. picture taken and uploaded to chart. Charge Nurse Warren ochoa.
[2020-03-21 05:35] LABS: HEMATOCRIT 39.1 % (42.0-52.0); HEMOGLOBIN 12.2 G/DL (14.2-18.0); MEAN CORPUSCULAR VOLUME 88 FL (80-99); PLATELET COUNT 210 K/UL (150-450); RED BLOOD COUNT 4.43 M/UL (4.70-6.10); RED CELL DISTRIBUTION WIDTH 13.9 % (11.6-14.8); WHITE BLOOD COUNT 21.3 K/UL (4.8-10.8)
[2020-03-21] MEDS: HydrALAZINE 50mg tab ORAL SCH ×3 (05:50→22:27)
[2020-03-21] MEDS: Solu-MEDROL 40mg Inj IVP SCH ×3 (05:50→17:34)
[2020-03-21] MEDS: NovoLOG Insulin Flexpen SUBQ SCH ×7 (05:51→22:30)
[2020-03-21 06:09] LABS: ALBUMIN 2.3 G/DL (3.4-5.0); ALBUMIN/GLOBULIN RATIO 0.6 (1.0-2.7); BILIRUBIN,TOTAL 0.3 MG/DL (0.2-1.0); CALCIUM 8.3 MG/DL (8.5-10.1); CREATININE 3.5 MG/DL (0.55-1.30); PHOSPHORUS 4.2 MG/DL (2.5-4.9); POTASSIUM 4.4 MMOL/L (3.5-5.1)
--- NOTE | 2020-03-21 07:30 | NUR ---
NURSE NOTES: Received report from BELKIS Linda. The patient is resting on the bed but confused, restless, uncooperative, and resistant in care. The patient is able to make needs known via verbal communication. SR w/ HR of 80s w/ BBB and PVCs on the quality assurance monitor. The patient is on 2L NC per order. The patient has Bipap PRN order of 18/5 FiO2 50%. The patient's oxygen saturation is 95% at this time with no s/s of labored breathing or difficulty breathing. The patient is continent is bowel and bladder and using urinal or urination. Skin issue noted and dressing intact. The patient has R upper chest permacath for HD access and RICHARD 24G PIV that is intact and patent. The patient had HD on 03/20 with 2.3L output per BELKIS Linda. The patient's bed in the lowest position, call light in reach, and fall and aspiration precaution reinforced. IV site intact and patent. Will follow up the lab and order. Will closely monitor the patient. Will continue plan of care.
--- NOTE | 2020-03-21 07:49 | NUR ---
NURSE HAND-OFF REPORT: Important Events on Shift: patient requires frequent education on blood glucose control and wearing oxygen. patient refused to wear bipap. was assessed by respiratory, on nasal canula. Patient currently in stable condition. Patient Status: full code Diet: renal Pending Orders: none Pending Results/Labs: none Pending MD notification:none Latest Vital Signs: Temperature 98.1 , Pulse 82 , B/P 145 /83 , Respiratory Rate 18 , O2 SAT 98 , Nasal Cannula, O2 Flow Rate 2.0 . Vital Sign Comment: within normal limits. EKG Rhythm: SR w/ BBB Rhythm change?: N MD Notified?: N - MD Response: Latest Ryan Fall Score: 60 Fall Risk: High Risk Safety Measures: Call light Within Reach, Bed Alarm Zone 1, Side Rails Side Rails x2, Bed position Low and Locked. Fall Precautions: Yellow Socks Yellow Gown Patient Fall Education Report given to Felicita TAMAYO
[2020-03-21 08:00] VITALS: BP 137/63
--- NOTE | 2020-03-21 08:00 | NUR ---
NURSE NOTES: Morning vital signs taken. Morning nursing assessment done. The patient is keep asking extra food and coffee. Will closely monitor the patient. Will continue plan of care.
--- NOTE | 2020-03-21 08:38 | NUR ---
RD ASSESSMENT & RECOMMENDATIONS SEE CARE ACTIVITY FOR COMPLETE ASSESSMENT DAILY ESTIMATED NEEDS: Needs based on Renal dysfunction, to start HD, obesity/ 80.5kg abw 23-28 kcals/kg [id number] total kcals 1.25-1.8 g protein/kg 100-144 g total protein Fluids per MD NUTRITION DIAGNOSIS: Altered nutrition related lab values R/T ARF now on HD, DM as evidenced by elev creat (3.8), elev K (5.7-> wnl), elev Phos (6.1), elev BNP (5072), elev BG (200's) and POC glu ([phone]- now improved). CURRENT DIET:Renal PO DIET RECOMMENDATIONS: RENAL + CCHO MED ADDITIONAL RECOMMENDATIONS: * Daily standing wt * Monitor for continuity of HD (first HD on 03/08), last HD 03/20 Add HIGH PRO snacks in b/w meals. * Check A1C for evaluation of glycemic control Monitor for hyperglycemia while on Solumedrol * F/up w/ sacral WC eval, none noted * Monitor for hypoglycemia on insulin regimen
[2020-03-21] MEDS: Tamsulosin 0.4mg cap ORAL SCH ×2 (09:11→17:35)
[2020-03-21] MEDS: Docusate 100mg cap ORAL SCH ×3 (09:11→17:35)
[2020-03-21] MEDS: Citalopram Hydrobromide 10mg Tab ORAL SCH (09:11)
[2020-03-21] MEDS: Vitamin B Complex Tab ORAL SCH (09:12)
[2020-03-21] MEDS: Heparin 5000 units/ml inj SUBQ SCH ×2 (09:16→17:36)
[2020-03-21] MEDS: Levemir Flexpen SUBQ SCH ×2 (09:17→17:36)
[2020-03-21] MEDS: Budesonide HHN 0.25mg/2ml ud HHN SCH ×2 (09:19→21:15)
--- NOTE | 2020-03-21 10:00 | NUR ---
NURSE NOTES: Morning medications administered per order. BS 236 noted and Levemir administered per order. The patient tolerated well. Lisinopril on hold until clarification made with Dr. Singh regarding HD order. Will closely monitor the patient. Will continue plan of care.
--- NOTE | 2020-03-21 10:39 | Pulmonology Progress Note ---
Subjective ROS Limited/Unobtainable: Yes Interval Events: Now on nasal oxygen. Constitutional: Reports: no symptoms HEENT: Repors: no symptoms Respiratory: Reports: no symptoms Cardiovascular: Reports: no symptoms Gastrointestinal/Abdominal: Reports: no symptoms Genitourinary: Reports: no symptoms Allergies: Coded Allergies: PENICILLINS (Verified Allergy, Unknown, 03/06/20) Uncoded Allergies: SEAFOOD (Allergy, Unknown, 03/06/20) All Systems: reviewed and negative except above Objective Last 24 Hour Vital Signs Date Time Temp Pulse Resp B/P (MAP) Pulse Ox O2 Delivery O2 Flow Rate FiO2 03/21/20 09:19 84 18 98 Nasal Cannula 3.0 32 86 16 97 03/21/20 09:19 97 Nasal Cannula 2.0 28 03/21/20 08:00 92 03/21/20 05:50 145/83 03/21/20 04:00 82 03/21/20 04:00 98.1 84 18 137/75 (95) 98 03/21/20 04:00 Nasal Cannula 2.0 03/21/20 01:20 70 18 98 40 03/21/20 00:00 Nasal Cannula 2.0 03/21/20 00:00 98.1 70 20 135/85 (102) 99 03/21/20 00:00 71 03/20/20 23:11 74 21 97 40 03/20/20 21:13 155/93 03/20/20 21:00 Nasal Cannula 2.0 03/20/20 20:00 84 03/20/20 20:00 98.0 78 22 155/93 (113) 95 03/20/20 20:00 82 18 98 Nasal Cannula 3.0 32 80 18 94 03/20/20 20:00 95 Nasal Cannula 2.0 28 03/20/20 16:00 78 03/20/20 16:00 97.8 76 20 124/82 (96) 100 03/20/20 15:05 120/76 03/20/20 12:00 79 03/20/20 12:00 96.7 84 18 120/76 (91) 99 03/20/20 11:40 97 Nasal Cannula 2.0 28 03/20/20 11:30 66 20 99 40 Intake and Output 03/20/20 03/21/20 19:00 07:00 Intake Total 420 ml 480 ml Output Total 2300 ml 800 ml Balance -1880 ml -320 ml Intake Oral 420 ml 480 ml Output Urine Total 800 ml Hemodialysis UF 2300 ml # Voids 1 # Bowel Movements 2 General Appearance: no acute distress HEENT: normocephalic Respiratory: chest wall non-tender, decreased breath sounds Cardiovascular: normal peripheral pulses, normal rate Abdomen: normal bowel sounds Laboratory Tests 03/20/20 14:55: Arterial Blood pH 7.376, Arterial Blood Partial Pressure CO2 49.7H, Arterial Blood Partial Pressure O2 75.8, Arterial Blood HCO3 28.5H, Arterial Blood Oxygen Saturation 95.4, Arterial Blood Base Excess 2.6H, Oscar Test Positive 03/20/20 21:06: POC Whole Blood Glucose 238H 03/21/20 03:58: White Blood Count 21.3H, Red Blood Count 4.43L, Hemoglobin 12.2L, Hematocrit 39.1L, Mean Corpuscular Volume 88, Mean Corpuscular Hemoglobin 27.6, Mean Corpuscular Hemoglobin Concent 31.3L, Red Cell Distribution Width 13.9, Platelet Count 210, Mean Platelet Volume 9.5, Neutrophils (%) (Auto) , Lymphocytes (%) (Auto) , Monocytes (%) (Auto) , Eosinophils (%) (Auto) , Basophils (%) (Auto) , Differential Total Cells Counted 100, Neutrophils % (Manual) 93H, Lymphocytes % (Manual) 4L, Monocytes % (Manual) 3, Eosinophils % (Manual) 0, Basophils % (Manual) 0, Band Neutrophils 0, Platelet Estimate Adequate, Platelet Morphology Normal, Hypochromasia 1+, Sodium Level 136, Potassium Level 4.4, Chloride Level 103, Carbon Dioxide Level 30, Anion Gap 4L, Blood Urea Nitrogen 80H, Creatinine 3.5H, Estimat Glomerular Filtration Rate 21.2, Glucose Level 126H, Uric Acid 5.9, Calcium Level 8.3L, Phosphorus Level 4.2, Magnesium Level 2.4, Total Terrell irubin 0.3, Aspartate Amino Transf (AST/SGOT) 19, Alanine Aminotransferase (ALT/SGPT) 34, Alkaline Phosphatase 95, C-Reactive Protein, Quantitative 0.7, Pro-B-Type Natriuretic Peptide 2051H, Total Protein 6.0L, Albumin 2.3L, Globulin 3.7, Albumin/Globulin Ratio 0.6L 03/21/20 05:43: POC Whole Blood Glucose 375H 03/21/20 09:09: POC Whole Blood Glucose [Pending] Current Medications Medications (Trade) Dose Ordered Sig/Melissa Route PRN Reason Start Time Stop Time Status Last Admin Dose Admin Allopurinol (allopurinoL) 300 mg DAILY ORAL 03/09/20 14:30 04/08/20 14:29 03/21/20 09:11 Budesonide (Pulmicort) 0.25 mg EVERY 12 HOURS HHN 03/06/20 21:00 06/04/20 20:59 03/21/20 09:19 Chlorhexidine Gluconate (Cherry-Hex 2%) 1 applic DAILY@1999 TOPIC 03/17/20 20:00 06/15/20 19:59 03/20/20 21:12 Chlorhexidine Gluconate (Cherry-Hex 2%) 1 applic DAILY@1999 TOPIC 03/10/20 21:45 06/08/20 21:44 03/20/20 21:12 Citalopram Hydrobromide (CeleXA) 20 mg DAILY ORAL 03/10/20 09:00 04/09/20 08:59 03/21/20 09:11 Clonidine HCl (Catapres Tab) 0.1 mg Q4H PRN ORAL SBP>170 03/06/20 16:15 06/04/20 16:14 Dextrose (Dextrose 50%) 25 ml Q30M PRN IV Hypoglycemia 03/13/20 16:30 06/11/20 16:29 Dextrose (Dextrose 50%) 50 ml Q30M PRN IV Hypoglycemia 03/13/20 16:30 06/11/20 16:29 Diphenhydramine HCl (Benadryl) 50 mg Q6H PRN ORAL Itching 03/06/20 19:00 04/05/20 18:59 Docusate Sodium (Colace) 100 mg THREE TIMES A DAY ORAL 03/08/20 13:00 04/07/20 12:59 03/21/20 09:11 Guaifenesin/ Dextromethorphan (Robitussin DM Syrup) 10 ml Q4H PRN ORAL For Cough 03/06/20 19:00 06/04/20 18:59 03/12/20 00:51 Heparin Sodium (Porcine) (Heparin 5000 units/ml) 5,000 units BID SUBQ 03/07/20 09:00 04/21/20 08:59 03/21/20 09:16 Hydralazine HCl (Apresoline) 50 mg Q8HR ORAL 03/11/20 14:00 06/04/20 17:59 03/21/20 05:50 Insulin Aspart (NovoLOG) BEFORE MEALS AND HS SUBQ 03/13/20 16:30 06/11/20 16:29 03/21/20 05:51 Insulin Aspart (NovoLOG) 10 units NOVOTIAC SUBQ 03/17/20 11:50 06/13/20 06:29 03/21/20 05:52 Insulin Detemir (Levemir) 16 units BID SUBQ 03/17/20 09:00 06/13/20 08:59 03/21/20 09:17 Levofloxacin (Levaquin) 750 mg Q48H ORAL 03/20/20 17:00 03/27/20 16:59 03/20/20 17:29 Lisinopril (ZestriL) 5 mg DAILY ORAL 03/17/20 09:00 04/16/20 08:59 03/19/20 11:25 Lorazepam (Ativan 2mg/ml 1ml) 1 mg Q4H PRN IV Agitation 03/19/20 22:15 03/26/20 22:14 Lorazepam (Ativan) 1 mg Q6H PRN ORAL For Anxiety 03/15/20 11:47 03/22/20 11:46 03/19/20 21:27 Methylprednisolone Sodium Succinate (Solu-MEDROL) 40 mg EVERY 6 HOURS IVP 03/11/20 12:00 06/09/20 11:59 03/21/20 05:50 Pantoprazole (Protonix) 40 mg EVERY 12 HOURS ORAL 03/08/20 21:00 04/07/20 20:59 03/21/20 09:12 Phenol/Menthol (Chloraseptic) 1 spray TIDPRN PRN ORAL For Pain 03/06/20 19:00 06/04/20 18:59 Sevelamer Carbonate (Renvela) 1,600 mg THREE TIMES A DAY ORAL 03/09/20 09:00 06/07/20 08:59 03/21/20 09:12 Tamsulosin HCl (Flomax) 0.4 mg BID ORAL 03/08/20 11:30 04/07/20 11:29 03/21/20 09:11 Vitamin B Complex (Vitamin B Complex) 1 tab DAILY ORAL 03/07/20 09:00 06/05/20 08:59 03/21/20 09:12 Assessment/Plan Assessment/Plan IMPRESSION: 1. Improved pulmonary edema/ s/p HD 2. Hypertension. 3. Diabetes mellitus. 4. Renal failure. 5. COPD. 6. Negative COVID 19 DISCUSSION: Continue breathing treatments with albuterol and Atrovent Negative COVID 19 Broad-spectrum antibiotics will be given. I will follow carefully. HD per renal Oxygenation improved Continue on nasal oxygen. Jacob Caceres M.D. Jacob Caceres MD Mar 21, 2020 10:39
[2020-03-21 12:00] VITALS: BP 132/74
--- NOTE | 2020-03-21 12:00 | NUR ---
NURSE NOTES: The patient is resting on the bed without acute distress or shortness of breath. Tolerating 2L NC well. BS 181 noted. Novolog administered per protocol. Will closely monitor the patient. Will continue plan of care.
--- NOTE | 2020-03-21 12:30 | NUR ---
NURSE NOTES: Dr. Singh at the bedside assessed the patient. Clarification made with Dr. Singh regarding HD order. Per Dr. Singh, HD to be done 03/22/2020. Notified abnormal lab including BUN, Cr after HD , and BNP result. Notified that Lisinopril was on hold until clarification regarding HD order. Per Dr. Singh, administer now as ordered. Will administer as ordered. Will closely monitor the patient. Will continue plan of care.
[2020-03-21] MEDS: Lisinopril 2.5mg tab ORAL SCH (12:42)
--- NOTE | 2020-03-21 13:39 | General Progress Note ---
Subjective Allergies: Coded Allergies: PENICILLINS (Verified Allergy, Unknown, 03/06/20) Uncoded Allergies: SEAFOOD (Allergy, Unknown, 03/06/20) All Systems: reviewed and negative except above Subjective events noted glucose values in fair control Item Value Date Time Bedside Blood Glucose 181 mg/dl H 03/21/20 1246 Bedside Blood Glucose 236 mg/dl H 03/21/20 0917 Bedside Blood Glucose 375 mg/dl H 03/21/20 0619 Bedside Blood Glucose 238 mg/dl H 03/20/20 2114 Bedside Blood Glucose 112 mg/dl 03/20/20 1736 Bedside Blood Glucose 182 mg/dl H 03/20/20 1239 Bedside Blood Glucose 201 mg/dl H 03/20/20 0941 Objective Last 24 Hour Vital Signs Date Time Temp Pulse Resp B/P (MAP) Pulse Ox O2 Delivery O2 Flow Rate FiO2 03/21/20 12:42 152/88 03/21/20 12:00 81 03/21/20 09:19 84 18 98 Nasal Cannula 3.0 32 86 16 97 03/21/20 09:19 97 Nasal Cannula 2.0 28 03/21/20 08:00 92 03/21/20 08:00 97.5 90 18 137/63 (87) 95 03/21/20 08:00 Nasal Cannula 2.0 03/21/20 05:50 145/83 03/21/20 04:00 82 03/21/20 04:00 98.1 84 18 137/75 (95) 98 03/21/20 04:00 Nasal Cannula 2.0 03/21/20 01:20 70 18 98 40 03/21/20 00:00 Nasal Cannula 2.0 03/21/20 00:00 98.1 70 20 135/85 (102) 99 03/21/20 00:00 71 03/20/20 23:11 74 21 97 40 03/20/20 21:13 155/93 03/20/20 21:00 Nasal Cannula 2.0 03/20/20 20:00 84 03/20/20 20:00 98.0 78 22 155/93 (113) 95 03/20/20 20:00 82 18 98 Nasal Cannula 3.0 32 80 18 94 03/20/20 20:00 95 Nasal Cannula 2.0 28 03/20/20 16:00 78 03/20/20 16:00 97.8 76 20 124/82 (96) 100 03/20/20 15:05 120/76 Intake and Output 03/20/20 03/21/20 19:00 07:00 Intake Total 420 ml 480 ml Output Total 2300 ml 800 ml Balance -1880 ml -320 ml Intake Oral 420 ml 480 ml Output Urine Total 800 ml Hemodialysis UF 2300 ml # Voids 1 # Bowel Movements 2 Laboratory Tests 03/20/20 14:55: Arterial Blood pH 7.376, Arterial Blood Partial Pressure CO2 49.7H, Arterial Blood Partial Pressure O2 75.8, Arterial Blood HCO3 28.5H, Arterial Blood Oxygen Saturation 95.4, Arterial Blood Base Excess 2.6H, Oscar Test Positive 03/20/20 21:06: POC Whole Blood Glucose 238H 03/21/20 03:58: White Blood Count 21.3H, Red Blood Count 4.43L, Hemoglobin 12.2L, Hematocrit 39.1L, Mean Corpuscular Volume 88, Mean Corpuscular Hemoglobin 27.6, Mean Corpuscular Hemoglobin Concent 31.3L, Red Cell Distribution Width 13.9, Platelet Count 210, Mean Platelet Volume 9.5, Neutrophils (%) (Auto) , Lymphocytes (%) (Auto) , Monocytes (%) (Auto) , Eosinophils (%) (Auto) , Basophils (%) (Auto) , Differential Total Cells Counted 100, Neutrophils % (Manual) 93H, Lymphocytes % (Manual) 4L, Monocytes % (Manual) 3, Eosinophils % (Manual) 0, Basophils % (Manual) 0, Band Neutrophils 0, Platelet Estimate Adequate, Platelet Morphology Normal, Hypochromasia 1+, Sodium Level 136, Potassium Level 4.4, Chloride Level 103, Carbon Dioxide Level 30, Anion Gap 4L, Blood Urea Nitrogen 80H, Creatinine 3.5H, Estimat Glomerular Filtration Rate 21.2, Glucose Level 126H, Uric Acid 5.9, Calcium Level 8.3L, Phosphorus Level 4.2, Magnesium Level 2.4, Total Bilirubin 0.3, Aspartate Amino Transf (AST/SGOT) 19, Alanine Aminotransferase (ALT/SGPT) 34, Alkaline Phosphatase 95, C-Reactive Protein, Quantitative 0.7, Pro-B-Type Natriuretic Peptide 2051H, Total Protein 6.0L, Albumin 2.3L, Globulin 3.7, Albumin/Globulin Ratio 0.6L 03/21/20 05:43: POC Whole Blood Glucose 375H 03/21/20 09:09: POC Whole Blood Glucose [Pending] 03/21/20 10:27: Arterial Blood pH 7.370, Arterial Blood Partial Pressure CO2 48.1H, Arterial Blood Partial Pressure O2 68.5L, Arterial Blood HCO3 27.2H, Arterial Blood Oxy gen Saturation 93.1L, Arterial Blood Base Excess 1.4, Oscar Test Positive 03/21/20 11:50: POC Whole Blood Glucose [Pending] Height (Feet): 5 Height (Inches): 9.00 Weight (Pounds): 228 General Appearance: no apparent distress Neck: normal alignment Cardiovascular: normal rate Respiratory/Chest: decreased breath sounds Abdomen: normal bowel sounds Objective Current Medications Medications (Trade) Dose Ordered Sig/Melissa Route PRN Reason Start Time Stop Time Status Last Admin Dose Admin Allopurinol (allopurinoL) 300 mg DAILY ORAL 03/09/20 14:30 04/08/20 14:29 03/21/20 09:11 Budesonide (Pulmicort) 0.25 mg EVERY 12 HOURS HHN 03/06/20 21:00 06/04/20 20:59 03/21/20 09:19 Chlorhexidine Gluconate (Cherry-Hex 2%) 1 applic DAILY@1999 TOPIC 03/17/20 20:00 06/15/20 19:59 03/20/20 21:12 Chlorhexidine Gluconate (Cherry-Hex 2%) 1 applic DAILY@1999 TOPIC 03/10/20 21:45 06/08/20 21:44 03/20/20 21:12 Citalopram Hydrobromide (CeleXA) 20 mg DAILY ORAL 03/10/20 09:00 04/09/20 08:59 03/21/20 09:11 Clonidine HCl (Catapres Tab) 0.1 mg Q4H PRN ORAL SBP>170 03/06/20 16:15 06/04/20 16:14 Dextrose (Dextrose 50%) 25 ml Q30M PRN IV Hypoglycemia 03/13/20 16:30 06/11/20 16:29 Dextrose (Dextrose 50%) 50 ml Q30M PRN IV Hypoglycemia 03/13/20 16:30 06/11/20 16:29 Diphenhydramine HCl (Benadryl) 50 mg Q6H PRN ORAL Itching 03/06/20 19:00 04/05/20 18:59 Docusate Sodium (Colace) 100 mg THREE TIMES A DAY ORAL 03/08/20 13:00 04/07/20 12:59 03/21/20 12:47 Guaifenesin/ Dextromethorphan (Robitussin DM Syrup) 10 ml Q4H PRN ORAL For Cough 03/06/20 19:00 06/04/20 18:59 03/12/20 00:51 Heparin Sodium (Porcine) (Heparin 5000 units/ml) 5,000 units BID SUBQ 03/07/20 09:00 04/21/20 08:59 03/21/20 09:16 Hydralazine HCl (Apresoline) 50 mg Q8HR ORAL 03/11/20 14:00 06/04/20 17:59 03/21/20 05:50 Insulin Aspart (NovoLOG) BEFORE MEALS AND HS SUBQ 03/13/20 16:30 06/11/20 16:29 03/21/20 12:46 Insulin Aspart (NovoLOG) 10 units NOVOTIAC SUBQ 03/17/20 11:50 06/13/20 06:29 03/21/20 12:46 Insulin Detemir (Levemir) 16 units BID SUBQ 03/17/20 09:00 06/13/20 08:59 03/21/20 09:17 Levofloxacin (Levaquin) 750 mg Q48H ORAL 03/20/20 17:00 03/27/20 16:59 03/20/20 17:29 Lisinopril (ZestriL) 5 mg DAILY ORAL 03/17/20 09:00 04/16/20 08:59 03/21/20 12:42 Lorazepam (Ativan 2mg/ml 1ml) 1 mg Q4H PRN IV Agitation 03/19/20 22:15 03/26/20 22:14 Lorazepam (Ativan) 1 mg Q6H PRN ORAL For Anxiety 03/15/20 11:47 03/22/20 11:46 03/19/20 21:27 Methylprednisolone Sodium Succinate (Solu-MEDROL) 40 mg EVERY 6 HOURS IVP 03/11/20 12:00 06/09/20 11:59 03/21/20 12:47 Pantoprazole (Protonix) 40 mg EVERY 12 HOURS ORAL 03/08/20 21:00 04/07/20 20:59 03/21/20 09:12 Phenol/Menthol (Chloraseptic) 1 spray TIDPRN PRN ORAL For Pain 03/06/20 19:00 06/04/20 18:59 Sevelamer Carbonate (Renvela) 1,600 mg THREE TIMES A DAY ORAL 03/09/20 09:00 06/07/20 08:59 03/21/20 12:47 Tamsulosin HCl (Flomax) 0.4 mg BID ORAL 03/08/20 11:30 04/07/20 11:29 03/21/20 09:11 Vitamin B Complex (Vitamin B Complex) 1 tab DAILY ORAL 03/07/20 09:00 06/05/20 08:59 03/21/20 09:12 Assessment/Plan Problem List: (1) Hyperglycemia ICD Codes: R73.9 - Hyperglycemia, unspecified SNOMED: 33084944 (2) COPD (chronic obstructive pulmonary disease) ICD Codes: J44.9 - Chronic obstructive pulmonary disease, unspecified SNOMED: 62408174 Qualifiers: Qualified Codes: J44.1 - Chronic obstructive pulmonary disease with (acute) exacerbation (3) CHF (congestive heart failure) ICD Codes: I50.9 - Heart failure, unspecified SNOMED: 18066066 Qualifiers: Qualified Codes: I50.9 - Heart failure, unspecified (4) Hypoxia ICD Codes: R09.02 - Hypoxemia SNOMED: 598210490 (5) Renal failure (ARF), acute on chronic ICD Codes: N17.9 - Acute kidney failure, unspecified; N18.9 - Chronic kidney disease, unspecified SNOMED: 014169896 Qualifiers: Qualified Codes: N17.9 - Acute kidney failure, unspecified; N18.4 - Chronic kidney disease, stage 4 (severe) (6) HTN (hypertension) ICD Codes: I10 - Essential (primary) hypertension SNOMED: 09703164 Status: progressing Assessment/Plan: continue Levemir 16 units bid continue Novolog 10 units ac tid continue Novolog sliding scale ac / hs John Taylor MD Mar 21, 2020 13:39
--- NOTE | 2020-03-21 13:41 | General Progress Note ---
Subjective ROS Limited/Unobtainable: Yes Allergies: Coded Allergies: PENICILLINS (Verified Allergy, Unknown, 03/06/20) Uncoded Allergies: SEAFOOD (Allergy, Unknown, 03/06/20) Objective Last 24 Hour Vital Signs Date Time Temp Pulse Resp B/P (MAP) Pulse Ox O2 Delivery O2 Flow Rate FiO2 03/21/20 12:42 152/88 03/21/20 12:00 81 03/21/20 09:19 84 18 98 Nasal Cannula 3.0 32 86 16 97 03/21/20 09:19 97 Nasal Cannula 2.0 28 03/21/20 08:00 92 03/21/20 08:00 97.5 90 18 137/63 (87) 95 03/21/20 08:00 Nasal Cannula 2.0 03/21/20 05:50 145/83 03/21/20 04:00 82 03/21/20 04:00 98.1 84 18 137/75 (95) 98 03/21/20 04:00 Nasal Cannula 2.0 03/21/20 01:20 70 18 98 40 03/21/20 00:00 Nasal Cannula 2.0 03/21/20 00:00 98.1 70 20 135/85 (102) 99 03/21/20 00:00 71 03/20/20 23:11 74 21 97 40 03/20/20 21:13 155/93 03/20/20 21:00 Nasal Cannula 2.0 03/20/20 20:00 84 03/20/20 20:00 98.0 78 22 155/93 (113) 95 03/20/20 20:00 82 18 98 Nasal Cannula 3.0 32 80 18 94 03/20/20 20:00 95 Nasal Cannula 2.0 28 03/20/20 16:00 78 03/20/20 16:00 97.8 76 20 124/82 (96) 100 03/20/20 15:05 120/76 Intake and Output 03/20/20 03/21/20 19:00 07:00 Intake Total 420 ml 480 ml Output Total 2300 ml 800 ml Balance -1880 ml -320 ml Intake Oral 420 ml 480 ml Output Urine Total 800 ml Hemodialysis UF 2300 ml # Voids 1 # Bowel Movements 2 Laboratory Tests 03/20/20 14:55: Arterial Blood pH 7.376, Arterial Blood Partial Pressure CO2 49.7H, Arterial Blood Partial Pressure O2 75.8, Arterial Blood HCO3 28.5H, Arterial Blood Oxygen Saturation 95.4, Arterial Blood Base Excess 2.6H, Oscar Test Positive 03/20/20 21:06: POC Whole Blood Glucose 238H 03/21/20 03:58: White Blood Count 21.3H, Red Blood Count 4.43L, Hemoglobin 12.2L, Hematocrit 39.1L, Mean Corpuscular Volume 88, Mean Corpuscular Hemoglobin 27.6, Mean Corpuscular Hemoglobin Concent 31.3L, Red Cell Distribution Width 13.9, Platelet Count 210, Mean Platelet Volume 9.5, Neutrophils (%) (Auto) , Lymphocytes (%) (Auto) , Monocytes (%) (Auto) , Eosinophils (%) (Auto) , Basophils (%) (Auto) , Differential Total Cells Counted 100, Neutrophils % (Manual) 93H, Lymphocytes % (Manual) 4L, Monocytes % (Manual) 3, Eosinophils % (Manual) 0, Basophils % (Manual) 0, Band Neutrophils 0, Platelet Estimate Adequate, Platelet Morphology Normal, Hypochromasia 1+, Sodium Level 136, Potassium Level 4.4, Chloride Level 103, Carbon Dioxide Level 30, Anion Gap 4L, Blood Urea Nitrogen 80H, Creatinine 3.5H, Estimat Glomerular Filtration Rate 21.2, Glucose Level 126H, Uric Acid 5. 9, Calcium Level 8.3L, Phosphorus Level 4.2, Magnesium Level 2.4, Total Bilirubin 0.3, Aspartate Amino Transf (AST/SGOT) 19, Alanine Aminotransferase (ALT/SGPT) 34, Alkaline Phosphatase 95, C-Reactive Protein, Quantitative 0.7, Pro-B-Type Natriuretic Peptide 2051H, Total Protein 6.0L, Albumin 2.3L, Globulin 3.7, Albumin/Globulin Ratio 0.6L 03/21/20 05:43: POC Whole Blood Glucose 375H 03/21/20 09:09: POC Whole Blood Glucose [Pending] 03/21/20 10:27: Arterial Blood pH 7.370, Arterial Blood Partial Pressure CO2 48.1H, Arterial Blood Partial Pressure O2 68.5L, Arterial Blood HCO3 27.2H, Arterial Blood Oxygen Saturation 93.1L, Arterial Blood Base Excess 1.4, Oscar Test Positive 03/21/20 11:50: POC Whole Blood Glucose [Pending] Height (Feet): 5 Height (Inches): 9.00 Weight (Pounds): 228 Assessment/Plan Problem List: (1) COPD (chronic obstructive pulmonary disease) ICD Codes: J44.9 - Chronic obstructive pulmonary disease, unspecified SNOMED: 23591655 Qualifiers: Qualified Codes: J44.1 - Chronic obstructive pulmonary disease with (acute) exacerbation (2) CHF (congestive heart failure) ICD Codes: I50.9 - Heart failure, unspecified SNOMED: 73095632 Qualifiers: Qualified Codes: I50.9 - Heart failure, unspecified (3) Hypoxia ICD Codes: R09.02 - Hypoxemia SNOMED: 441361054 (4) Renal failure (ARF), acute on chronic ICD Codes: N17.9 - Acute kidney failure, unspecified; N18.9 - Chronic kidney disease, unspecified SNOMED: 768276428 Qualifiers: Qualified Codes: N17.9 - Acute kidney failure, unspecified; N18.4 - Chronic kidney disease, stage 4 (severe) Status: progressing Assessment/Plan: no wheezing afebrile no change resp insuff chf eacerbation fluid overload esrd on hd per renal prn oxygen John Chavez MD Mar 21, 2020 13:41
--- NOTE | 2020-03-21 13:53 | Nephrology Progress Note ---
Assessment/Plan Problem List: (1) Renal failure (ARF), acute on chronic (2) Hypoxia (3) CHF (congestive heart failure) (4) COPD (chronic obstructive pulmonary disease) (5) HTN (hypertension) (6) Hyperkalemia Assessment Acute renal failure Possible underlying chronic kidney disease Hyperkalemia Respiratory failure: Combination of diastolic CHF, COPD, possible pneumonia Hypertension Diabetes mellitus Negative COVID-19 rapid test Plan March 21: Patient in [facility]. Dialyzed yesterday. Clinically improved. ABG improved. Labs and medication list improved. Will aim to dialyze again tomorrow. March 20: Patient in [facility]. Dialyzed today. On BiPAP now. ABG improved. Discussed with . Continue to optimize pulmonary status and monitor renal parameters and dialysis as needed. Discussed with RN. Leukocytosis worsened. Continue per ID advice March 19: Labs reviewed. Dialyzed yesterday. Leukocytosis worsened. Continue per ID. Patient encephalopathic. Attempt dialysis tomorrow. March 18: Labs reviewed. Patient has a tunneled catheter. Will dialyze today. Continue placement process for outpatient hemodialysis. Discussed with RN. March 17: Labs reviewed. Serum creatinine rising. Patient needs to be continue on dialysis. Regretfully he pulled out his femoral dialysis catheter. Discussed with RN. Patient need to be consented for placement of tunneled dialysis catheter for continued dialysis. If needed, psychiatric clearance regarding if the patient is mentally fit to make decisions. March 16: Last hemodialysis March 14. Clinically doing well. Serum creatinine rising. Today creatinine is 3.7. Will check labs tomorrow if further rise of creatinine will arrange for dialysis and placement of the catheter for the outpatient dialysis due to acute on chronic renal failure. March 15: Last HD 03/14. Doing well. continue to monitor renal parameters . Discussed with Dr Caceres. Continue to rest March 14: Dialyzed March 12. Serum creatinine today 4.2. Will do dialysis and ultrafiltration today. Continue per pulmonary. March 13: Dialyzed yesterday. Serum creatinine 3.8 unchanged. Continue per pulmonary. Hemodialysis as needed. Continue to monitor renal parameters. March 12: Due for dialysis today. Discussed with pulmonary, patient due for right pleural effusion tap today. Labs reviewed. Continue per current management. Continue to monitor renal parameters. March 11: Patient was dialyzed 2 days in a row with total of 7 L fluid removal. Today's ABG still suggestive of hypoxia. Patient uncooperative and does not keep the oxygen mask on. Labs reviewed. Renal parameters reasonable. Will attempt dialysis again tomorrow. Will discuss with Dr. Caceres with regard to possible initiation of steroid's, if underlying COPD is a major cause for the current pulmonary state. March 10: Patient was dialyzed yesterday. Over 3 L ultrafiltration done. Patient will be dialyzed again today with ultrafiltration. Continue to monitor pulmonary status. Discussed with . March 09: Seen this morning during hemodialysis. Patient has a femoral catheter for dialysis access. Aim to ultrafiltrate 3 to 4 L. Postdialysis will stop IV Lasix. We will continue to monitor urine output and renal parameters. Phos binders ordered. Per orders. Ultrasound results noted. Previously: Since diuretic treatment is not working, and the patient is volume overloaded and has difficulty breathing with lower extremity edema and possible ascites will aim to dialyze and do ultrafiltration. Adjust blood pressure medication. Kidney ultrasound, results noted Flomax twice daily Adjust the diet. Change to renal Pulmonary toilet Afterload preload reduction Avoid nephrotoxic's Subjective ROS Limited/Unobtainable: No Constitutional: Reports: malaise Objective Objective Last 24 Hour Vital Signs Date Time Temp Pulse Resp B/P (MAP) Pulse Ox O2 Delivery O2 Flow Rate FiO2 03/21/20 13:49 129/79 03/21/20 12:42 152/88 03/21/20 12:00 81 03/21/20 09:19 84 18 98 Nasal Cannula 3.0 32 86 16 97 03/21/20 09:19 97 Nasal Cannula 2.0 28 03/21/20 08:00 92 03/21/20 08:00 97.5 90 18 137/63 (87) 95 03/21/20 08:00 Nasal Cannula 2.0 03/21/20 05:50 145/83 03/21/20 04:00 82 03/21/20 04:00 98.1 84 18 137/75 (95) 98 03/21/20 04:00 Nasal Cannula 2.0 03/21/20 01:20 70 18 98 40 03/21/20 00:00 Nasal Cannula 2.0 03/21/20 00:00 98.1 70 20 135/85 (102) 99 03/21/20 00:00 71 03/20/20 23:11 74 21 97 40 03/20/20 21:13 155/93 03/20/20 21:00 Nasal Cannula 2.0 03/20/20 20:00 84 03/20/20 20:00 98.0 78 22 155/93 (113) 95 03/20/20 20:00 82 18 98 Nasal Cannula 3.0 32 80 18 94 03/20/20 20:00 95 Nasal Cannula 2.0 28 03/20/20 16:00 78 03/20/20 16:00 97.8 76 20 124/82 (96) 100 03/20/20 15:05 120/76 Intake and Output 03/20/20 03/21/20 19:00 07:00 Intake Total 420 ml 480 ml Output Total 2300 ml 800 ml Balance -1880 ml -320 ml Intake Oral 420 ml 480 ml Output Urine Total 800 ml Hemodialysis UF 2300 ml # Voids 1 # Bowel Movements 2 Current Medications Medications (Trade) Dose Ordered Sig/Melissa Route PRN Reason Start Time Stop Time Status Last Admin Dose Admin Allopurinol (allopurinoL) 300 mg DAILY ORAL 03/09/20 14:30 04/08/20 14:29 03/21/20 09:11 Budesonide (Pulmicort) 0.25 mg EVERY 12 HOURS HHN 03/06/20 21:00 06/04/20 20:59 03/21/20 09:19 Chlorhexidine Gluconate (Cherry-Hex 2%) 1 applic DAILY@1999 TOPIC 03/17/20 20:00 06/15/20 19:59 03/20/20 21:12 Chlorhexidine Gluconate (Cherry-Hex 2%) 1 applic DAILY@1999 TOPIC 03/10/20 21:45 06/08/20 21:44 03/20/20 21:12 Citalopram Hydrobromide (CeleXA) 20 mg DAILY ORAL 03/10/20 09:00 04/09/20 08:59 03/21/20 09:11 Clonidine HCl (Catapres Tab) 0.1 mg Q4H PRN ORAL SBP>170 03/06/20 16:15 06/04/20 16:14 Dextrose (Dextrose 50%) 25 ml Q30M PRN IV Hypoglycemia 03/13/20 16:30 06/11/20 16:29 Dextrose (Dextrose 50%) 50 ml Q30M PRN IV Hypoglycemia 03/13/20 16:30 06/11/20 16:29 Diphenhydramine HCl (Benadryl) 50 mg Q6H PRN ORAL Itching 03/06/20 19:00 04/05/20 18:59 Docusate Sodium (Colace) 100 mg THREE TIMES A DAY ORAL 03/08/20 13:00 04/07/20 12:59 03/21/20 12:47 Guaifenesin/ Dextromethorphan (Robitussin DM Syrup) 10 ml Q4H PRN ORAL For Cough 03/06/20 19:00 06/04/20 18:59 03/12/20 00:51 Heparin Sodium (Porcine) (Heparin 5000 units/ml) 5,000 units BID SUBQ 03/07/20 09:00 04/21/20 08:59 03/21/20 09:16 Hydralazine HCl (Apresoline) 50 mg Q8HR ORAL 03/11/20 14:00 06/04/20 17:59 03/21/20 13:49 Insulin Aspart (NovoLOG) BEFORE MEALS AND HS SUBQ 03/13/20 16:30 06/11/20 16:29 03/21/20 12:46 Insulin Aspart (NovoLOG) 10 units NOVOTIAC SUBQ 03/17/20 11:50 06/13/20 06:29 03/21/20 12:46 Insulin Detemir (Levemir) 16 units BID SUBQ 03/17/20 09:00 06/13/20 08:59 03/21/20 09:17 Levofloxacin (Levaquin) 750 mg Q48H ORAL 03/20/20 17:00 03/27/20 16:59 03/20/20 17:29 Lisinopril (ZestriL) 5 mg DAILY ORAL 03/17/20 09:00 04/16/20 08:59 03/21/20 12:42 Lorazepam (Ativan 2mg/ml 1ml) 1 mg Q4H PRN IV Agitation 03/19/20 22:15 03/26/20 22:14 Lorazepam (Ativan) 1 mg Q6H PRN ORAL For Anxiety 03/15/20 11:47 03/22/20 11:46 03/19/20 21:27 Methylprednisolone Sodium Succinate (Solu-MEDROL) 40 mg EVERY 6 HOURS IVP 03/11/20 12:00 06/09/20 11:59 03/21/20 12:47 Pantoprazole (Protonix) 40 mg EVERY 12 HOURS ORAL 03/08/20 21:00 04/07/20 20:59 03/21/20 09:12 Phenol/Menthol (Chloraseptic) 1 spray TIDPRN PRN ORAL For Pain 03/06/20 19:00 06/04/20 18:59 Sevelamer Carbonate (Renvela) 1,600 mg THREE TIMES A DAY ORAL 03/09/20 09:00 06/07/20 08:59 03/21/20 12:47 Tamsulosin HCl (Flomax) 0.4 mg BID ORAL 03/08/20 11:30 04/07/20 11:29 03/21/20 09:11 Vitamin B Complex (Vitamin B Complex) 1 tab DAILY ORAL 03/07/20 09:00 06/05/20 08:59 03/21/20 09:12 Laboratory Tests 03/20/20 14:55: Arterial Blood pH 7.376, Arterial Blood Partial Pressure CO2 49.7H, Arterial Blood Partial Pressure O2 75.8, Arterial Blood HCO3 28.5H, Arterial Blood Oxygen Saturation 95.4, Arterial Blood Base Excess 2.6H, Oscar Test Positive 03/20/20 21:06: POC Whole Blood Glucose 238H 03/21/20 03:58: White Blood Count 21.3H, Red Blood Count 4.43L, Hemoglobin 12.2L, Hematocrit 39.1L, Mean Corpuscular Volume 88, Mean Corpuscular Hemoglobin 27.6, Mean Corpuscular Hemoglobin Concent 31.3L, Red Cell Distribution Width 13.9, Platelet Count 210, Mean Platelet Volume 9.5, Neutrophils (%) (Auto) , Lymphocytes (%) (Auto) , Monocytes (%) (Auto) , Eosinophils (%) (Auto) , Basophils (%) (Auto) , Differential Total Cells Counted 100, Neutrophils % (Manual) 93H, Lymphocytes % (Manual) 4L, Monocytes % (Manual) 3, Eosinophils % (Manual) 0, Basophils % (Manual) 0, Band Neutrophils 0, Platelet Estimate Adequate, Platelet Morphology Normal, Hypochromasia 1+, Sodium Level 136, Potassium Level 4.4, Chloride Level 103, Carbon Dioxide Level 30, Anion Gap 4L, Blood Urea Nitrogen 80H, Creatinine 3.5H, Estimat Glomerular Filtration Rate 21.2, Glucose Level 126H, Uric Acid 5.9, Calcium Level 8.3L, Phosphorus Level 4.2, Magnesium Level 2.4, Total Bilirubin 0.3, Aspartate Amino Transf (AST/SGOT) 19, Alanine Aminotransferase (ALT/SGPT) 34, Alkaline Phosphatase 95, C-Reactive Protein, Quantitative 0.7, Pro-B-Type Natriuretic Peptide 2051H, Total Protein 6.0L, Albumin 2.3L, Globulin 3.7, Albumin/Globulin Ratio 0.6L 03/21/20 05:43: POC Whole Blood Glucose 375H 03/21/20 09:09: POC Whole Blood Glucose [Pending] 03/21/20 10:27: Arterial Blood pH 7.370, Arterial Blood Partial Pressure CO2 48.1H, Arterial Blood Partial Pressure O2 68.5L, Arterial Blood HCO3 27.2H, Arterial Blood Oxygen Saturation 93.1L, Arterial Blood Base Excess 1.4, Oscar Test Positive 03/21/20 11:50: POC Whole Blood Glucose [Pending] Height (Feet): 5 Height (Inches): 9.00 Weight (Pounds): 228 General Appearance: no apparent distress Cardiovascular: normal rate Respiratory/Chest: decreased breath sounds Abdomen: distended Rene Singh MD Mar 21, 2020 13:53
--- NOTE | 2020-03-21 14:00 | NUR ---
NURSE NOTES: Called [facility] for HD order to be done on 03/22/[address] Singh's order. Spoke with Sowmya @ [facility] and confirmed. The patient is resting on the bed without acute distress or shortness of breath and tolerating 2L NC well. Will closely monitor the patient. Will continue plan of care.
[2020-03-21 16:00] VITALS: BP 148/70
--- NOTE | 2020-03-21 16:00 | NUR ---
NURSE NOTES: Bed bath given to the patient. Tolerated well. Will closely monitor the patient. Will continue plan of care.
--- NOTE | 2020-03-21 17:00 | NUR ---
NURSE NOTES: BS 300 noted. Levemir and Novolog administered per protocol and order. Tolerated well. Education provided regarding BS control. Will closely monitor the patient. Will continue plan of care.
--- NOTE | 2020-03-21 17:16 | Cardiac Electrophysiology PN ---
Assessment/Plan Assessment/Plan 1. Severe bilateral lower extremity edema with shortness of breath and BNP of almost 4000. EF 60%. Due to CHF due to diastolic dysfunction and renal failure, on HD. 2. Hypertension. On HD , hydralazine 50 mg tid and p.r.n. clonidine. 3. Renal failure, creatinine was 3.9 that increased to >4 with BUN 80. Started on HD.Pulled out his Right groin Janusz cath S/P Right chest PermCath placement 03/17/20 4. COPD. VIRGINIE RN Subjective Subjective No CP. ECG SR with RBBB, LAFB Got RFV Janusz and had HD 4 liters on 03/09 and 3 liters on 03/10 On Nasal Cannula. S/P Right chest PermCath placement 03/17/20 Noncompliant. On 2 liter NC and HD pending tomorrow Objective Last 24 Hour Vital Signs Date Time Temp Pulse Resp B/P (MAP) Pulse Ox O2 Delivery O2 Flow Rate FiO2 03/21/20 13:49 129/79 03/21/20 12:42 152/88 03/21/20 12:00 98.2 80 18 132/74 (93) 96 03/21/20 12:00 81 03/21/20 09:19 84 18 98 Nasal Cannula 3.0 32 86 16 97 03/21/20 09:19 97 Nasal Cannula 2.0 28 03/21/20 08:00 92 03/21/20 08:00 97.5 90 18 137/63 (87) 95 03/21/20 08:00 Nasal Cannula 2.0 03/21/20 05:50 145/83 03/21/20 04:00 82 03/21/20 04:00 98.1 84 18 137/75 (95) 98 03/21/20 04:00 Nasal Cannula 2.0 03/21/20 01:20 70 18 98 40 03/21/20 00:00 Nasal Cannula 2.0 03/21/20 00:00 98.1 70 20 135/85 (102) 99 03/21/20 00:00 71 03/20/20 23:11 74 21 97 40 03/20/20 21:13 155/93 03/20/20 21:00 Nasal Cannula 2.0 03/20/20 20:00 84 03/20/20 20:00 98.0 78 22 155/93 (113) 95 03/20/20 20:00 82 18 98 Nasal Cannula 3.0 32 80 18 94 03/20/20 20:00 95 Nasal Cannula 2.0 28 Intake and Output 03/20/20 03/21/20 19:00 07:00 Intake Total 420 ml 480 ml Output Total 2300 ml 800 ml Balance -1880 ml -320 ml Intake Oral 420 ml 480 ml Output Urine Total 800 ml Hemodialysis UF 2300 ml # Voids 1 # Bowel Movements 2 Laboratory Tests Test 03/20/20 21:06 03/21/20 03:58 03/21/20 05:43 03/21/20 09:09 POC Whole Blood Glucose 238 MG/DL (74-106) H 375 MG/DL (74-106) H Pending White Blood Count 21.3 K/UL (4.8-10.8) H Red Blood Count 4.43 M/UL (4.70-6.10) L Hemoglobin 12.2 G/DL (14.2-18.0) L Hematocrit 39.1 % (42.0-52.0) L Mean Corpuscular Volume 88 FL (80-99) Mean Corpuscular Hemoglobin 27.6 PG (27.0-31.0) Mean Corpuscular Hemoglobin Concent 31.3 G/DL (32.0-36.0) L Red Cell Distribution Width 13.9 % (11.6-14.8) Platelet Count 210 K/UL (150-450) Mean Platelet Volume 9.5 FL (6.5-10.1) Neutrophils (%) (Auto) % (45.0-75.0) Lymphocytes (%) (Auto) % (20.0-45.0) Monocytes (%) (Auto) % (1.0-10.0) Eosinophils (%) (Auto) % (0.0-3.0) Basophils (%) (Auto) % (0.0-2.0) Differential Total Cells Counted 100 Neutrophils % (Manual) 93 % (45-75) H Lymphocytes % (Manual) 4 % (20-45) L Monocytes % (Manual) 3 % (1-10) Eosinophils % (Manual) 0 % (0-3) Basophils % (Manual) 0 % (0-2) Band Neutrophils 0 % (0-8) Platelet Estimate Adequate Platelet Morphology Normal Hypochromasia 1+ Sodium Level 136 MMOL/L (136-145) Potassium Level 4.4 MMOL/L (3.5-5.1) Chloride Level 103 MMOL/L (98-107) Carbon Dioxide Level 30 MMOL/L (21-32) Anion Gap 4 mmol/L (5-15) L Blood Urea Nitrogen 80 mg/dL (7-18) H Creatinine 3.5 MG/DL (0.55-1.30) H Estimat Glomerular Filtration Rate 21.2 mL/min (>60) Glucose Level 126 MG/DL (74-106) H Uric Acid 5.9 MG/DL (2.6-7.2) Calcium Level 8.3 MG/DL (8.5-10.1) L Phosphorus Level 4.2 MG/DL (2.5-4.9) Magnesium Level 2.4 MG/DL (1.8-2.4) Total Bilirubin 0.3 MG/DL (0.2-1.0) Aspartate Amino Transf (AST/SGOT) 19 U/L (15-37) Alanine Aminotransferase (ALT/SGPT) 34 U/L (12-78) Alkaline Phosphatase 95 U/L (46-116) C-Reactive Protein, Quantitative 0.7 mg/dL (0.00-0.90) Pro-B-Type Natriuretic Peptide 2051 pg/mL (0-125) H Total Protein 6.0 G/DL (6.4-8.2) L Albumin 2.3 G/DL (3.4-5.0) L Globulin 3.7 g/dL Albumin/Globulin Ratio 0.6 (1.0-2.7) L Test 03/21/20 10:27 03/21/20 11:50 03/21/20 16:37 Arterial Blood pH 7.370 (7.350-7.450) Arterial Blood Partial Pressure CO2 48.1 mmHg (35.0-45.0) H Arterial Blood Partial Pressure O2 68.5 mmHg (75.0-100.0) L Arterial Blood HCO3 27.2 mmol/L (22.0-26.0) H Arterial Blood Oxygen Saturation 93.1 % (95-100) L Arterial Blood Base Excess 1.4 (-2-2) Oscar Test Positive POC Whole Blood Glucose Pending 300 MG/DL (74-106) H Objective HEAD AND NECK: Positive JVD. LUNGS: Decreased breath sounds. Right chest PermCath in place CARDIOVASCULAR: Regular S1 and S2 with no gallop. ABDOMEN: Soft. EXTREMITIES: 2+ pitting edema in lower extremities as well as 2+ pitting edema in right arm. Ponce Serna MD Mar 21, 2020 17:16
--- NOTE | 2020-03-21 18:00 | NUR ---
NURSE NOTES: Was able to assess gait while the patient is going restroom for BM. Steady gait noted. Tolerating 2L NC well. Will closely monitor the patient. Will continue plan of care.
--- NOTE | 2020-03-21 19:15 | NUR ---
NURSE HAND-OFF REPORT: Important Events on Shift: Tolerating 2L NC well, BS high side_manage w/ Levemir and Novolog, HD order 03/22_ called [facility] Patient Status: Stable, Full code Diet: Renal Diet Pending Orders: HD 03/22 Pending Results/Labs: N Pending MD notification:N Latest Vital Signs: Temperature 98.6 , Pulse 89 , B/P 148 /70 , Respiratory Rate 18 , O2 SAT 95 , Nasal Cannula, O2 Flow Rate 2.0 . Vital Sign Comment: Stable EKG Rhythm: Sinus Rhythm Rhythm change?: N MD Notified?: N - MD Response: Latest Ryan Fall Score: 60 Fall Risk: High Risk Safety Measures: Call light Within Reach, Bed Alarm Zone 2, Side Rails Side Rails x3, Bed position Low and Locked. Fall Precautions: Yellow Socks Yellow Gown Door Sign Patient Fall Education Report given to BELKIS Linda. The patient is stable at this time. Endorsed plan of care.
--- NOTE | 2020-03-21 19:37 | NUR ---
NURSE NOTES: Report received from Diego TAMAYO. Patient is noted to be awake and alert x 3. Patient is noted to currently be on 2 liters of oxygen via nasal canula at this time. Patient has no complaints of chest pain or shortness of breath at this time. Was endorsed to Alexei TAMAYO that patient was recently titrated down from BiPap and that patient requires frequent re-education to keep oxygen on. Patient is noted to have right upper chest permacath. Was endorsed to Alexei TAMAYO that patient is to receive dialysis tomorrow from [facility]. Was endorsed to Alexei TAMAYO that it was already confirmed by day shift nurse Diego. Was endorsed to Alexei TAMAYO that patient frequently asks for snacks, however, patient has had a high blood glucose level. Patient requires frequent education and snack and glucose control. Patient is considered a high fall risk, Alexei TAMAYO educated the patient to call prior to getting up out of bed. Patient verbalized understanding. bed is locked, alarmed, and in lowest position. Call light in reach.
[2020-03-21 20:00] VITALS: BP 153/80
[2020-03-21] MEDS: Dyna-Hex 2% Top Sol 2oz TOPIC SCH ×2 (22:28→22:29)
[2020-03-22] VITALS: BP 151/70
[2020-03-22] MEDS: Solu-MEDROL 40mg Inj IVP SCH ×4 (00:14→17:09)
[2020-03-22 04:00] VITALS: BP 101/77
--- NOTE | 2020-03-22 05:20 | NUR ---
NURSE NOTES: [facility] nurse here to begin hemodialysis on patient. Patient declined to wash up or get up out of bed to use bathroom prior to starting dialysis.
[2020-03-22] MEDS: HydrALAZINE 50mg tab ORAL SCH ×3 (05:41→22:21)
[2020-03-22] MEDS: NovoLOG Insulin Flexpen SUBQ SCH ×7 (05:45→22:25)
[2020-03-22 05:54] LABS: HEMATOCRIT 34.9 % (42.0-52.0); HEMOGLOBIN 11.1 G/DL (14.2-18.0); MEAN CORPUSCULAR VOLUME 87 FL (80-99); PLATELET COUNT 205 K/UL (150-450); RED BLOOD COUNT 4.01 M/UL (4.70-6.10); RED CELL DISTRIBUTION WIDTH 13.7 % (11.6-14.8)
[2020-03-22 06:17] LABS: ALBUMIN 2.1 G/DL (3.4-5.0); ALBUMIN/GLOBULIN RATIO 0.7 (1.0-2.7); BILIRUBIN,TOTAL 0.3 MG/DL (0.2-1.0); CALCIUM 7.9 MG/DL (8.5-10.1); CREATININE 3.9 MG/DL (0.55-1.30); PHOSPHORUS 3.5 MG/DL (2.5-4.9); POTASSIUM 4.3 MMOL/L (3.5-5.1)
[2020-03-22 06:18] LABS: WHITE BLOOD COUNT 23.1 K/UL (4.8-10.8)
--- NOTE | 2020-03-22 06:38 | General Progress Note ---
Subjective Allergies: Coded Allergies: PENICILLINS (Verified Allergy, Unknown, 03/06/20) Uncoded Allergies: SEAFOOD (Allergy, Unknown, 03/06/20) All Systems: reviewed and negative except above Subjective events noted glucose values are elevated despite receiving all the scheduled insulin Item Value Date Time Bedside Blood Glucose 216 mg/dl H 03/22/20 0607 Bedside Blood Glucose 323 mg/dl H 03/21/20 2230 Bedside Blood Glucose 300 mg/dl H 03/21/20 1736 Bedside Blood Glucose 181 mg/dl H 03/21/20 1246 Bedside Blood Glucose 236 mg/dl H 03/21/20 0917 Bedside Blood Glucose 375 mg/dl H 03/21/20 0619 Objective Last 24 Hour Vital Signs Date Time Temp Pulse Resp B/P (MAP) Pulse Ox O2 Delivery O2 Flow Rate FiO2 03/22/20 05:41 101/77 03/22/20 04:00 96.8 77 18 101/77 (85) 98 03/22/20 04:00 76 03/22/20 00:00 97.7 80 18 151/70 (97) 97 03/22/20 00:00 78 03/21/20 22:27 153/80 03/21/20 21:24 82 18 99 Nasal Cannula 3.0 32 03/21/20 21:14 81 18 96 Nasal Cannula 3.0 32 03/21/20 21:00 Nasal Cannula 2.0 03/21/20 20:00 84 03/21/20 20:00 98.8 82 18 153/80 (104) 97 03/21/20 19:18 96 Nasal Cannula 2.0 28 03/21/20 16:00 98.6 89 18 148/70 (96) 95 03/21/20 16:00 91 03/21/20 13:49 129/79 03/21/20 12:42 152/88 03/21/20 12:00 98.2 80 18 132/74 (93) 96 03/21/20 12:00 81 03/21/20 09:19 84 18 98 Nasal Cannula 3.0 32 86 16 97 03/21/20 09:19 97 Nasal Cannula 2.0 28 03/21/20 08:00 92 03/21/20 08:00 97.5 90 18 137/63 (87) 95 03/21/20 08:00 Nasal Cannula 2.0 Intake and Output 03/21/20 03/22/20 19:00 07:00 Intake Total 1000 ml 1100 ml Output Total 700 ml 300 ml Balance 300 ml 800 ml Intake Oral 1000 ml 1100 ml Output Urine Total 700 ml 300 ml # Voids 3 2 # Bowel Movements 1 1 Laboratory Tests 03/21/20 09:09: POC Whole Blood Glucose [Pending] 03/21/20 10:27: Arterial Blood pH 7.370, Arterial Blood Partial Pressure CO2 48.1H, Arterial Blood Partial Pressure O2 68.5L, Arterial Blood HCO3 27.2H, Arterial Blood Oxygen Saturation 93.1L, Arterial Blood Base Excess 1.4, Oscar Test Positive 03/21/20 11:50: POC Whole Blood Glucose [Pending] 03/21/20 16:37: POC Whole Blood Glucose 300H 03/21/20 22:14: POC Whole Blood Glucose 323H 03/22/20 03:59: White Blood Count 23.1*H, Red Blood Count 4.01L, Hemoglobin 11.1L, Hematocrit 34.9L, Mean Corpuscular Volume 87, Mean Corpuscular Hemoglobin 27.7, Mean Corpuscular Hemoglobin Concent 31.8L, Red Cell Distribution Width 13.7, Platelet Count 205, Mean Platelet Volume 10.9H, Neutrophils (%) (Auto) , Lymphocytes (%) (Auto) , Monocytes (%) (Auto) , Eosinophils (%) (Auto) , Basophils (%) (Auto) , Neutrophils % (Manual) [Pending], Lymphocytes % (Manual) [Pending], Platelet Estimate [Pending], Platelet Morphology [Pending], Sodium Level 132L, Potassium Level 4.3, Chloride Level 101, Carbon Dioxide Level 27, Anion Gap 4L, Blood Urea Nitrogen 90H, Creatinine 3.9H, Estimat Glomerular Filtration Rate 18.8, Glucose Level 241#H, Calcium Level 7.9L, Phosphorus Level 3.5, Magnesium Level 2.3, Total Bilirubin 0.3, Aspartate Amino Transf (AST/SGOT) 15, Alanine Aminotransferase (ALT/SGPT) 28, Alkaline Phosphatase 103, Total Protein 5.3L, Albumin 2.1L, Globulin 3.2, Albumin/Globulin Ratio 0.7L 03/22/20 05:34: POC Whole Blood Glucose 216H Height (Feet): 5 Height (Inches): 9.00 Weight (Pounds): 228 General Appearance: no apparent distress Neck: normal alignment Cardiovascular: normal rate Respiratory/Chest: decreased breath sounds Abdomen: normal bowel sounds Objective Current Medications Medications (Trade) Dose Ordered Sig/Melissa Route PRN Reason Start Time Stop Time Status Last Admin Dose Admin Allopurinol (allopurinoL) 300 mg DAILY ORAL 03/09/20 14:30 04/08/20 14:29 03/21/20 09:11 Budesonide (Pulmicort) 0.25 mg EVERY 12 HOURS HHN 03/06/20 21:00 06/04/20 20:59 03/21/20 21:15 Chlorhexidine Gluconate (Cherry-Hex 2%) 1 applic DAILY@1999 TOPIC 03/17/20 20:00 06/15/20 19:59 03/21/20 22:29 Chlorhexidine Gluconate (Cherry-Hex 2%) 1 applic DAILY@1999 TOPIC 03/10/20 21:45 06/08/20 21:44 03/21/20 22:28 Citalopram Hydrobromide (CeleXA) 20 mg DAILY ORAL 03/10/20 09:00 04/09/20 08:59 03/21/20 09:11 Clonidine HCl (Catapres Tab) 0.1 mg Q4H PRN ORAL SBP>170 03/06/20 16:15 06/04/20 16:14 Dextrose (Dextrose 50%) 25 ml Q30M PRN IV Hypoglycemia 03/13/20 16:30 06/11/20 16:29 Dextrose (Dextrose 50%) 50 ml Q30M PRN IV Hypoglycemia 03/13/20 16:30 06/11/20 16:29 Diphenhydramine HCl (Benadryl) 50 mg Q6H PRN ORAL Itching 03/06/20 19:00 04/05/20 18:59 Docusate Sodium (Colace) 100 mg THREE TIMES A DAY ORAL 03/08/20 13:00 04/07/20 12:59 03/21/20 17:35 Guaifenesin/ Dextromethorphan (Robitussin DM Syrup) 10 ml Q4H PRN ORAL For Cough 03/06/20 19:00 06/04/20 18:59 03/12/20 00:51 Heparin Sodium (Porcine) (Heparin 5000 units/ml) 5,000 units BID SUBQ 03/07/20 09:00 04/21/20 08:59 03/21/20 17:36 Hydralazine HCl (Apresoline) 50 mg Q8HR ORAL 03/11/20 14:00 06/04/20 17:59 03/21/20 22:27 Insulin Aspart (NovoLOG) BEFORE MEALS AND HS SUBQ 03/13/20 16:30 06/11/20 16:29 03/22/20 05:45 Insulin Aspart (NovoLOG) 10 units NOVOTIAC SUBQ 03/17/20 11:50 06/13/20 06:29 03/22/20 05:46 Insulin Detemir (Levemir) 16 units BID SUBQ 03/17/20 09:00 06/13/20 08:59 03/21/20 17:36 Levofloxacin (Levaquin) 750 mg Q48H ORAL 03/20/20 17:00 03/27/20 16:59 03/20/20 17:29 Lisinopril (ZestriL) 5 mg DAILY ORAL 03/17/20 09:00 04/16/20 08:59 03/21/20 12:42 Lorazepam (Ativan 2mg/ml 1ml) 1 mg Q4H PRN IV Agitation 03/19/20 22:15 03/26/20 22:14 Lorazepam (Ativan) 1 mg Q6H PRN ORAL For Anxiety 03/15/20 11:47 03/22/20 11:46 03/19/20 21:27 Methylprednisolone Sodium Succinate (Solu-MEDROL) 40 mg EVERY 6 HOURS IVP 03/11/20 12:00 06/09/20 11:59 03/22/20 05:46 Pantoprazole (Protonix) 40 mg EVERY 12 HOURS ORAL 03/08/20 21:00 04/07/20 20:59 03/21/20 22:27 Phenol/Menthol (Chloraseptic) 1 spray TIDPRN PRN ORAL For Pain 03/06/20 19:00 06/04/20 18:59 Sevelamer Carbonate (Renvela) 1,600 mg THREE TIMES A DAY ORAL 03/09/20 09:00 06/07/20 08:59 03/21/20 17:35 Tamsulosin HCl (Flomax) 0.4 mg BID ORAL 03/08/20 11:30 04/07/20 11:29 03/21/20 17:35 Vitamin B Complex (Vitamin B Complex) 1 tab DAILY ORAL 03/07/20 09:00 06/05/20 08:59 03/21/20 09:12 Assessment/Plan Problem List: (1) Hyperglycemia ICD Codes: R73.9 - Hyperglycemia, unspecified SNOMED: 61804115 (2) COPD (chronic obstructive pulmonary disease) ICD Codes: J44.9 - Chronic obstructive pulmonary disease, unspecified SNOMED: 10810476 Qualifiers: Qualified Codes: J44.1 - Chronic obstructive pulmonary disease with (acute) exacerbation (3) CHF (congestive heart failure) ICD Codes: I50.9 - Heart failure, unspecified SNOMED: 01939065 Qualifiers: Qualified Codes: I50.9 - Heart failure, unspecified (4) Hypoxia ICD Codes: R09.02 - Hypoxemia SNOMED: 278497529 (5) Renal failure (ARF), acute on chronic ICD Codes: N17.9 - Acute kidney failure, unspecified; N18.9 - Chronic kidney disease, unspecified SNOMED: 669373646 Qualifiers: Qualified Codes: N17.9 - Acute kidney failure, unspecified; N18.4 - Chronic kidney disease, stage 4 (severe) (6) HTN (hypertension) ICD Codes: I10 - Essential (primary) hypertension SNOMED: 09754599 Status: progressing Assessment/Plan: increase Levemir 16 to 18 units bid increase Novolog 10 to 12 units ac tid continue Novolog sliding scale ac / hs John Taylor MD Mar 22, 2020 06:38
--- NOTE | 2020-03-22 07:02 | NUR ---
NURSE HAND-OFF REPORT: Important Events on Shift: Patient awake most of shift. Patient frequently asks for snacks and juice despite education. Patient is currently receiving dialysis, in stable condition. Patient Status: full code Diet: renal Pending Orders: none Pending Results/Labs:none Pending MD notification:none Latest Vital Signs: Temperature 96.8 , Pulse 76 , B/P 101 /77 , Respiratory Rate 18 , O2 SAT 98 , Nasal Cannula, O2 Flow Rate 2.0 . Vital Sign Comment: Within normal limits. EKG Rhythm: SR w/ BBB Rhythm change?: N MD Notified?: N - MD Response: Latest Ryan Fall Score: 60 Fall Risk: High Risk Safety Measures: Call light Within Reach, Bed Alarm Zone 2, Side Rails Side Rails x3, Bed position Low and Locked. Fall Precautions: Yellow Socks Yellow Gown Door Sign Patient Fall Education Report given to Steve TAMAYO.
--- NOTE | 2020-03-22 07:15 | NUR ---
NURSE NOTES: Received patient from BELKIS Linda. Patient is in bed currently on hemodialysis. Patient is alert and oriented x3. Patient is sinus rhythm on the monitor. on room air saturating 99%. Bed alarm on, lowest position and locked, call light within easy reach. Will continue plan of care.
[2020-03-22 08:00] VITALS: BP 118/70
[2020-03-22] MEDS: Citalopram Hydrobromide 10mg Tab ORAL SCH (08:26)
[2020-03-22] MEDS: Lisinopril 2.5mg tab ORAL SCH (08:27)
[2020-03-22] MEDS: Docusate 100mg cap ORAL SCH ×3 (08:27→17:10)
[2020-03-22] MEDS: Tamsulosin 0.4mg cap ORAL SCH ×2 (08:27→17:09)
[2020-03-22] MEDS: Heparin 5000 units/ml inj SUBQ SCH ×2 (08:38→17:25)
[2020-03-22] MEDS ORDERED: Levemir Flexpen SUBQ SCH (09:00)
[2020-03-22] MEDS ORDERED: Levofloxacin 500mg tab ORAL SCH (09:00)
[2020-03-22] MEDS: Vitamin B Complex Tab ORAL SCH (09:05)
--- NOTE | 2020-03-22 09:15 | NUR ---
NURSE NOTES: Dr. Caceres seen and examined patient at bedside, per Dr. Caceres okay to transfer to telemetry, order entered, noted, and carried out. Also informed Dr. Caceres that patient has refused Bipap QHS. Dr. Caceres acknowledged and gave no new orders at this time. Will continue to monitor patient.
--- NOTE | 2020-03-22 09:35 | Nephrology Progress Note ---
Assessment/Plan Problem List: (1) Renal failure (ARF), acute on chronic (2) Hypoxia (3) CHF (congestive heart failure) (4) COPD (chronic obstructive pulmonary disease) (5) HTN (hypertension) (6) Hyperkalemia Assessment Acute renal failure Possible underlying chronic kidney disease Hyperkalemia Respiratory failure: Combination of diastolic CHF, COPD, possible pneumonia Hypertension Diabetes mellitus Negative COVID-19 rapid test Plan March 22: Dialyzed this morning. Labs reviewed. Leukocytosis persists. Continue per consultants. March 21: Patient in [facility]. Dialyzed yesterday. Clinically improved. ABG improved. Labs and medication list improved. Will aim to dialyze again t omorrow. March 20: Patient in [facility]. Dialyzed today. On BiPAP now. ABG improved. Discussed with . Continue to optimize pulmonary status and monitor renal parameters and dialysis as needed. Discussed with RN. Leukocytosis worsened. Continue per ID advice March 19: Labs reviewed. Dialyzed yesterday. Leukocytosis worsened. Continue per ID. Patient encephalopathic. Attempt dialysis tomorrow. March 18: Labs reviewed. Patient has a tunneled catheter. Will dialyze today. Continue placement process for outpatient hemodialysis. Discussed with RN. March 17: Labs reviewed. Serum creatinine rising. Patient needs to be continue on dialysis. Regretfully he pulled out his femoral dialysis catheter. Discussed with RN. Patient need to be consented for placement of tunneled dialysis catheter for continued dialysis. If needed, psychiatric clearance regarding if the patient is mentally fit to make decisions. March 16: Last hemodialysis March 14. Clinically doing well. Serum creat inine rising. Today creatinine is 3.7. Will check labs tomorrow if further rise of creatinine will arrange for dialysis and placement of the catheter for the outpatient dialysis due to acute on chronic renal failure. March 15: Last HD 03/14. Doing well. continue to monitor renal parameters . Discussed with Dr Caceres. Continue to rest March 14: Dialyzed March 12. Serum creatinine today 4.2. Will do dialysis and ultrafiltration today. Continue per pulmonary. March 13: Dialyzed yesterday. Serum creatinine 3.8 unchanged. Continue per pulmonary. Hemodialysis as needed. Continue to monitor renal parameters. March 12: Due for dialysis today. Discussed with pulmonary, patient due for right pleural effusion tap today. Labs reviewed. Continue per current management. Continue to monitor renal parameters. March 11: Patient was dialyzed 2 days in a row with total of 7 L fluid removal. Today's ABG still suggestive of hypoxia. Patient uncooperative and does not keep the oxygen mask on. Labs reviewed. Renal parameters reasonable. Will attempt dialysis again tomorrow. Will discuss with Dr. Caceres with regard to possible initiation of steroid's, if underlying COPD is a major cause for the current pulmonary state. March 10: Patient was dialyzed yesterday. Over 3 L ultrafiltration done. Patient will be dialyzed again today with ultrafiltration. Continue to monitor pulmonary status. Discussed with . March 09: Seen this morning during hemodialysis. Patient has a femoral catheter for dialysis access. Aim to ultrafiltrate 3 to 4 L. Postdialysis will stop IV Lasix. We will continue to monitor urine output and renal parameters. Phos binders ordered. Per orders. Ultrasound results noted. Previously: Since diuretic treatment is not working, and the patient is volume overloaded and has difficulty breathing with lower extremity edema and possible ascites w ill aim to dialyze and do ultrafiltration. Adjust blood pressure medication. Kidney ultrasound, results noted Flomax twice daily Adjust the diet. Change to renal Pulmonary toilet Afterload preload reduction Avoid nephrotoxic's Subjective ROS Limited/Unobtainable: No Objective Objective Last 24 Hour Vital Signs Date Time Temp Pulse Resp B/P (MAP) Pulse Ox O2 Delivery O2 Flow Rate FiO2 03/22/20 08:27 118/70 03/22/20 08:00 97.0 75 18 118/70 (86) 96 03/22/20 05:41 101/77 03/22/20 04:00 96.8 77 18 101/77 (85) 98 03/22/20 04:00 76 03/22/20 00:00 97.7 80 18 151/70 (97) 97 03/22/20 00:00 78 03/21/20 22:27 153/80 03/21/20 21:24 82 18 99 Nasal Cannula 3.0 32 03/21/20 21:14 81 18 96 Nasal Cannula 3.0 32 03/21/20 21:00 Nasal Cannula 2.0 03/21/20 20:00 84 03/21/20 20:00 98.8 82 18 153/80 (104) 97 03/21/20 19:18 96 Nasal Cannula 2.0 28 03/21/20 16:00 98.6 89 18 148/70 (96) 95 03/21/20 16:00 91 03/21/20 13:49 129/79 03/21/20 12:42 152/88 03/21/20 12:00 98.2 80 18 132/74 (93) 96 03/21/20 12:00 81 Intake and Output 03/21/20 03/22/20 19:00 07:00 Intake Total 1000 ml 1100 ml Output Total 700 ml 300 ml Balance 300 ml 800 ml Intake Oral 1000 ml 1100 ml Output Urine Total 700 ml 300 ml # Voids 3 2 # Bowel Movements 1 1 Current Medications Medications (Trade) Dose Ordered Sig/Melissa Route PRN Reason Start Time Stop Time Status Last Admin Dose Admin Allopurinol (allopurinoL) 300 mg DAILY ORAL 03/09/20 14:30 04/08/20 14:29 03/22/20 08:27 Budesonide (Pulmicort) 0.25 mg EVERY 12 HOURS HHN 03/06/20 21:00 06/04/20 20:59 03/21/20 21:15 Chlorhexidine Gluconate (Cherry-Hex 2%) 1 applic DAILY@1999 TOPIC 03/17/20 20:00 06/15/20 19:59 03/21/20 22:29 Chlorhexidine Gluconate (Cherry-Hex 2%) 1 applic DAILY@1999 TOPIC 03/10/20 21:45 06/08/20 21:44 03/21/20 22:28 Citalopram Hydrobromide (CeleXA) 20 mg DAILY ORAL 03/10/20 09:00 04/09/20 08:59 03/22/20 08:26 Clonidine HCl (Catapres Tab) 0.1 mg Q4H PRN ORAL SBP>170 03/06/20 16:15 06/04/20 16:14 Dextrose (Dextrose 50%) 25 ml Q30M PRN IV Hypoglycemia 03/13/20 16:30 06/11/20 16:29 Dextrose (Dextrose 50%) 50 ml Q30M PRN IV Hypoglycemia 03/13/20 16:30 06/11/20 16:29 Diphenhydramine HCl (Benadryl) 50 mg Q6H PRN ORAL Itching 03/06/20 19:00 04/05/20 18:59 Docusate Sodium (Colace) 100 mg THREE TIMES A DAY ORAL 03/08/20 13:00 04/07/20 12:59 03/22/20 08:27 Guaifenesin/ Dextromethorphan (Robitussin DM Syrup) 10 ml Q4H PRN ORAL For Cough 03/06/20 19:00 06/04/20 18:59 03/12/20 00:51 Heparin Sodium (Porcine) (Heparin 5000 units/ml) 5,000 units BID SUBQ 03/07/20 09:00 04/21/20 08:59 03/21/20 17:36 Hydralazine HCl (Apresoline) 50 mg Q8HR ORAL 03/11/20 14:00 06/04/20 17:59 03/21/20 22:27 Insulin Aspart (NovoLOG) BEFORE MEALS AND HS SUBQ 03/13/20 16:30 06/11/20 16:29 03/22/20 05:45 Insulin Aspart (NovoLOG) 12 units NOVOTIAC SUBQ 03/22/20 11:50 06/13/20 06:29 Insulin Detemir (Levemir) 18 units BID SUBQ 03/22/20 09:00 06/13/20 08:59 Levofloxacin (Levaquin) 750 mg Q48H ORAL 03/20/20 17:00 03/27/20 16:59 03/20/20 17:29 Lisinopril (ZestriL) 5 mg DAILY ORAL 03/17/20 09:00 04/16/20 08:59 03/22/20 08:27 Lorazepam (Ativan 2mg/ml 1ml) 1 mg Q4H PRN IV Agitation 03/19/20 22:15 03/26/20 22:14 Lorazepam (Ativan) 1 mg Q6H PRN ORAL For Anxiety 03/15/20 11:47 03/22/20 11:46 03/19/20 21:27 Methylprednisolone Sodium Succinate (Solu-MEDROL) 40 mg EVERY 6 HOURS IVP 03/11/20 12:00 06/09/20 11:59 03/22/20 05:46 Pantoprazole (Protonix) 40 mg EVERY 12 HOURS ORAL 03/08/20 21:00 04/07/20 20:59 03/22/20 08:27 Phenol/Menthol (Chloraseptic) 1 spray TIDPRN PRN ORAL For Pain 03/06/20 19:00 06/04/20 18:59 Sevelamer Carbonate (Renvela) 1,600 mg THREE TIMES A DAY ORAL 03/09/20 09:00 06/07/20 08:59 03/22/20 08:25 Tamsulosin HCl (Flomax) 0.4 mg BID ORAL 03/08/20 11:30 04/07/20 11:29 03/22/20 08:27 Vitamin B Complex (Vitamin B Complex) 1 tab DAILY ORAL 03/07/20 09:00 06/05/20 08:59 03/22/20 09:05 Laboratory Tests 03/21/20 10:27: Arterial Blood pH 7.370, Arterial Blood Partial Pressure CO2 48.1H, Arterial Blood Partial Pressure O2 68.5L, Arterial Blood HCO3 27.2H, Arterial Blood Oxygen Saturation 93.1L, Arterial Blood Base Excess 1.4, Oscar Test Positive 03/21/20 11:50: POC Whole Blood Glucose [Pending] 03/21/20 16:37: POC Whole Blood Glucose 300H 03/21/20 22:14: POC Whole Blood Glucose 323H 03/22/20 03:59: White Blood Count 23.1*H, Red Blood Count 4.01L, Hemoglobin 11.1L, Hematocrit 34.9L, Mean Corpuscular Volume 87, Mean Corpuscular Hemoglobin 27.7, Mean Corpuscular Hemoglobin Concent 31.8L, Red Cell Distribution Width 13.7, Platelet Count 205, Mean Platelet Volume 10.9H, Neutrophils (%) (Auto) , Lymphocytes (%) (Auto) , Monocytes (%) (Auto) , Eosinophils (%) (Auto) , Basophils (%) (Auto) , Differential Total Cells Counted 100, Neutrophils % (Manual) 95H, Lymphocytes % (Manual) 2L, Monocytes % (Manual) 3, Eosinophils % (Manual) 0, Basophils % (Manual) 0, Band Neutrophils 0, Platelet Estimate Adequate, Platelet Morphology Normal, Sodium Level 132L, Potassium Level 4.3, Chloride Level 101, Carbon Dioxide Level 27, Anion Gap 4L, Blood Urea Nitrogen 90H, Creatinine 3.9H, Estimat Glomerular Filtration Rate 18.8, Glucose Level 241#H, Calcium Level 7.9L , Phosphorus Level 3.5, Magnesium Level 2.3, Total Bilirubin 0.3, Aspartate Amino Transf (AST/SGOT) 15, Alanine Aminotransferase (ALT/SGPT) 28, Alkaline Phosphatase 103, Total Protein 5.3L, Albumin 2.1L, Globulin 3.2, Albumin/Globulin Ratio 0.7L 03/22/20 05:34: POC Whole Blood Glucose 216H 03/22/20 08:13: POC Whole Blood Glucose 69L 03/22/20 09:10: POC Whole Blood Glucose 91 Height (Feet): 5 Height (Inches): 9.00 Weight (Pounds): 228 General Appearance: no apparent distress, confused Cardiovascular: normal rate Respiratory/Chest: decreased breath sounds Abdomen: distended Rene Singh MD Mar 22, 2020 09:35
[2020-03-22] MEDS: Budesonide HHN 0.25mg/2ml ud HHN SCH ×2 (09:45→21:11)
--- NOTE | 2020-03-22 10:16 | NUR ---
NURSE NOTES: Patient blood glucose 0800 was 69. patient ate morning tray, reassessed and blood sugar was at 94. Patient currently on Levemir 18 units TID, Novolog 12 units AC TID, Novolog sliding scale AC/HS. Left message to Dr. Taylor, waiting for call back.
--- NOTE | 2020-03-22 10:27 | Pulmonology Progress Note ---
Subjective ROS Limited/Unobtainable: No Interval Events: Now on nasal oxygen. Constitutional: Reports: no symptoms HEENT: Repors: no symptoms Respiratory: Reports: no symptoms Cardiovascular: Reports: no symptoms Gastrointestinal/Abdominal: Reports: no symptoms Genitourinary: Reports: no symptoms Allergies: Coded Allergies: PENICILLINS (Verified Allergy, Unknown, 03/06/20) Uncoded Allergies: SEAFOOD (Allergy, Unknown, 03/06/20) All Systems: reviewed and negative except above Objective Last 24 Hour Vital Signs Date Time Temp Pulse Resp B/P (MAP) Pulse Ox O2 Delivery O2 Flow Rate FiO2 03/22/20 09:55 96 Nasal Cannula 2.0 28 03/22/20 09:55 76 18 98 Nasal Cannula 2.0 28 76 18 96 03/22/20 09:00 Nasal Cannula 2.0 03/22/20 08:27 118/70 03/22/20 08:00 97.0 75 18 118/70 (86) 96 03/22/20 08:00 76 03/22/20 05:41 101/77 03/22/20 04:00 96.8 77 18 101/77 (85) 98 03/22/20 04:00 76 03/22/20 00:00 97.7 80 18 151/70 (97) 97 03/22/20 00:00 78 03/21/20 22:27 153/80 03/21/20 21:24 82 18 99 Nasal Cannula 3.0 32 03/21/20 21:14 81 18 96 Nasal Cannula 3.0 32 03/21/20 21:00 Nasal Cannula 2.0 03/21/20 20:00 84 03/21/20 20:00 98.8 82 18 153/80 (104) 97 03/21/20 19:18 96 Nasal Cannula 2.0 28 03/21/20 16:00 98.6 89 18 148/70 (96) 95 03/21/20 16:00 91 03/21/20 13:49 129/79 03/21/20 12:42 152/88 03/21/20 12:00 98.2 80 18 132/74 (93) 96 03/21/20 12:00 81 Intake and Output 03/21/20 03/22/20 19:00 07:00 Intake Total 1000 ml 1100 ml Output Total 700 ml 300 ml Balance 300 ml 800 ml Intake Oral 1000 ml 1100 ml Output Urine Total 700 ml 300 ml # Voids 3 2 # Bowel Movements 1 1 General Appearance: no acute distress HEENT: normocephalic Respiratory: chest wall non-tender, decreased breath sounds Cardiovascular: normal peripheral pulses, normal rate Abdomen: normal bowel sounds Laboratory Tests 03/21/20 10:27: Arterial Blood pH 7.370, Arterial Blood Partial Pressure CO2 48.1H, Arterial Blood Partial Pressure O2 68.5L, Arterial Blood HCO3 27.2H, Arterial Blood Oxygen Saturation 93.1L, Arterial Blood Base Excess 1.4, Oscar Test Positive 03/21/20 11:50: POC Whole Blood Glucose [Pending] 03/21/20 16:37: POC Whole Blood Glucose 300H 03/21/20 22:14: POC Whole Blood Glucose 323H 03/22/20 03:59: White Blood Count 23.1*H, Red Blood Count 4.01L, Hemoglobin 11.1L, Hematocrit 34.9L, Mean Corpuscular Volume 87, Mean Corpuscular Hemoglobin 27.7, Mean Corpuscular Hemoglobin Concent 31.8L, Red Cell Distribution Width 13.7, Platelet Count 205, Mean Platelet Volume 10.9H, Neutrophils (%) (Auto) , Lymphocytes (%) (Auto) , Monocytes (%) (Auto) , Eosinophils (%) (Auto) , Basophils (%) (Auto) , Differential Total Cells Counted 100, Neutrophils % (Manual) 95H, Lymphocytes % (Manual) 2L, Monocytes % (Manual) 3, Eosinophils % (Manual) 0, Basophils % (Manual) 0, Band Neutrophils 0, Platelet Estimate Adequate, Platelet Morphology Normal, Sodium Level 132L, Potassium Level 4.3, Chloride Level 101, Carbon Dioxide Level 27, Anion Gap 4L, Blood Urea Nitrogen 90H, Creatinine 3.9H, Estimat Glomerular Filtration Rate 18.8, Glucose Level 241#H, Calcium Level 7.9L , Phosphorus Level 3.5, Magnesium Level 2.3, Total Bilirubin 0.3, Aspartate Amino Transf (AST/SGOT) 15, Alanine Aminotransferase (ALT/SGPT) 28, Alkaline Phosphatase 103, Total Protein 5.3L, Albumin 2.1L, Globulin 3.2, Albumin/Globulin Ratio 0.7L 03/22/20 05:34: POC Whole Blood Glucose 216H 03/22/20 08:13: POC Whole Blood Glucose 69L 03/22/20 09:10: POC Whole Blood Glucose 91 Current Medications Medications (Trade) Dose Ordered Sig/Melissa Route PRN Reason Start Time Stop Time Status Last Admin Dose Admin Allopurinol (allopurinoL) 300 mg DAILY ORAL 03/09/20 14:30 04/08/20 14:29 03/22/20 08:27 Budesonide (Pulmicort) 0.25 mg EVERY 12 HOURS HHN 03/06/20 21:00 06/04/20 20:59 03/22/20 09:45 Chlorhexidine Gluconate (Cherry-Hex 2%) 1 applic DAILY@1999 TOPIC 03/17/20 20:00 06/15/20 19:59 03/21/20 22:29 Chlorhexidine Gluconate (Cherry-Hex 2%) 1 applic DAILY@1999 TOPIC 03/10/20 21:45 06/08/20 21:44 03/21/20 22:28 Citalopram Hydrobromide (CeleXA) 20 mg DAILY ORAL 03/10/20 09:00 04/09/20 08:59 03/22/20 08:26 Clonidine HCl (Catapres Tab) 0.1 mg Q4H PRN ORAL SBP>170 03/06/20 16:15 06/04/20 16:14 Dextrose (Dextrose 50%) 25 ml Q30M PRN IV Hypoglycemia 03/13/20 16:30 06/11/20 16:29 Dextrose (Dextrose 50%) 50 ml Q30M PRN IV Hypoglycemia 03/13/20 16:30 06/11/20 16:29 Diphenhydramine HCl (Benadryl) 50 mg Q6H PRN ORAL Itching 03/06/20 19:00 04/05/20 18:59 Docusate Sodium (Colace) 100 mg THREE TIMES A DAY ORAL 03/08/20 13:00 04/07/20 12:59 03/22/20 08:27 Guaifenesin/ Dextromethorphan (Robitussin DM Syrup) 10 ml Q4H PRN ORAL For Cough 03/06/20 19:00 06/04/20 18:59 03/12/20 00:51 Heparin Sodium (Porcine) (Heparin 5000 units/ml) 5,000 units BID SUBQ 03/07/20 09:00 04/21/20 08:59 03/21/20 17:36 Hydralazine HCl (Apresoline) 50 mg Q8HR ORAL 03/11/20 14:00 06/04/20 17:59 03/21/20 22:27 Insulin Aspart (NovoLOG) BEFORE MEALS AND HS SUBQ 03/13/20 16:30 06/11/20 16:29 03/22/20 05:45 Insulin Aspart (NovoLOG) 12 units NOVOTIAC SUBQ 03/22/20 11:50 06/13/20 06:29 Insulin Detemir (Levemir) 18 units BID SUBQ 03/22/20 09:00 06/13/20 08:59 Levofloxacin (Levaquin) 750 mg Q48H ORAL 03/20/20 17:00 03/27/20 16:59 03/20/20 17:29 Lisinopril (ZestriL) 5 mg DAILY ORAL 03/17/20 09:00 04/16/20 08:59 03/22/20 08:27 Lorazepam (Ativan 2mg/ml 1ml) 1 mg Q4H PRN IV Agitation 03/19/20 22:15 03/26/20 22:14 Lorazepam (Ativan) 1 mg Q6H PRN ORAL For Anxiety 03/15/20 11:47 03/22/20 11:46 03/19/20 21:27 Methylprednisolone Sodium Succinate (Solu-MEDROL) 40 mg EVERY 6 HOURS IVP 03/11/20 12:00 06/09/20 11:59 03/22/20 05:46 Pantoprazole (Protonix) 40 mg EVERY 12 HOURS ORAL 03/08/20 21:00 04/07/20 20:59 03/22/20 08:27 Phenol/Menthol (Chloraseptic) 1 spray TIDPRN PRN ORAL For Pain 03/06/20 19:00 06/04/20 18:59 Sevelamer Carbonate (Renvela) 1,600 mg THREE TIMES A DAY ORAL 03/09/20 09:00 06/07/20 08:59 03/22/20 08:25 Tamsulosin HCl (Flomax) 0.4 mg BID ORAL 03/08/20 11:30 04/07/20 11:29 03/22/20 08:27 Vitamin B Complex (Vitamin B Complex) 1 tab DAILY ORAL 03/07/20 09:00 06/05/20 08:59 03/22/20 09:05 Assessment/Plan Assessment/Plan IMPRESSION: 1. Improved pulmonary edema/ s/p HD 2. Hypertension. 3. Diabetes mellitus. 4. Renal failure. 5. COPD. 6. Negative COVID 19 7. Small R pleural effusion 8. Peristent leucocytosis DISCUSSION: Continue breathing treatments with albuterol and Atrovent Negative COVID 19 Broad-spectrum antibiotics I will follow carefully. HD per renal Oxygenation improved Continue on nasal oxygen. Etiology of worsening leucocytosis not known Jie Rivera Omar Syed MD Mar 22, 2020 10:27
--- NOTE | 2020-03-22 10:45 | NUR ---
NURSE NOTES: Dr Taylor called back. He will change insulin orders.
--- NOTE | 2020-03-22 11:20 | NUR ---
NURSE NOTES: transferred from SDU, awake and oriented, call light in reached, report received from Warren RN, not in distress.
--- NOTE | 2020-03-22 11:23 | NUR ---
TRANSFER TO FLOOR: Patient transferred to telemtery room 204-2, per Dr. Caceres. Report given to Fe, Charge Nurse. Belongings and medications given to Fe, Charge Nurse. Family informed of transfer.
--- NOTE | 2020-03-22 11:26 | Cardiac Electrophysiology PN ---
Assessment/Plan Assessment/Plan 1. Severe bilateral lower extremity edema with shortness of breath and BNP of almost 4000. EF 60%. Due to CHF due to diastolic dysfunction and renal failure, on HD. 2. Hypertension. On HD , hydralazine 50 mg tid and p.r.n. clonidine. 3. Renal failure, creatinine was 3.9 that increased to >4 with BUN 80. Started on HD.Pulled out his Right groin Janusz cath S/P Right chest PermCath placement 03/17/20 4. COPD. VIRGINIE RN Subjective Subjective No CP. ECG SR with RBBB, LAFB On Nasal Cannula. S/P Right chest PermCath placement 03/17/20 Noncompliant. On 2 liter NC and had HD Objective Last 24 Hour Vital Signs Date Time Temp Pulse Resp B/P (MAP) Pulse Ox O2 Delivery O2 Flow Rate FiO2 03/22/20 09:55 96 Nasal Cannula 2.0 28 03/22/20 09:55 76 18 98 Nasal Cannula 2.0 28 76 18 96 03/22/20 09:00 Nasal Cannula 2.0 03/22/20 08:27 118/70 03/22/20 08:00 97.0 75 18 118/70 (86) 96 03/22/20 08:00 76 03/22/20 05:41 101/77 03/22/20 04:00 96.8 77 18 101/77 (85) 98 03/22/20 04:00 76 03/22/20 00:00 97.7 80 18 151/70 (97) 97 03/22/20 00:00 78 03/21/20 22:27 153/80 03/21/20 21:24 82 18 99 Nasal Cannula 3.0 32 03/21/20 21:14 81 18 96 Nasal Cannula 3.0 32 03/21/20 21:00 Nasal Cannula 2.0 03/21/20 20:00 84 03/21/20 20:00 98.8 82 18 153/80 (104) 97 03/21/20 19:18 96 Nasal Cannula 2.0 28 03/21/20 16:00 98.6 89 18 148/70 (96) 95 03/21/20 16:00 91 03/21/20 13:49 129/79 03/21/20 12:42 152/88 11/15/20 12:00 98.2 80 18 132/74 (93) 96 03/21/20 12:00 81 Intake and Output 03/21/20 03/22/20 19:00 07:00 Intake Total 1000 ml 1100 ml Output Total 700 ml 300 ml Balance 300 ml 800 ml Intake Oral 1000 ml 1100 ml Output Urine Total 700 ml 300 ml # Voids 3 2 # Bowel Movements 1 1 Laboratory Tests Test 03/21/20 11:50 03/21/20 16:37 03/21/20 22:14 03/22/20 03:59 POC Whole Blood Glucose Pending 300 MG/DL (74-106) H 323 MG/DL (74-106) H White Blood Count 23.1 K/UL (4.8-10.8) *H Red Blood Count 4.01 M/UL (4.70-6.10) L Hemoglobin 11.1 G/DL (14.2-18.0) L Hematocrit 34.9 % (42.0-52.0) L Mean Corpuscular Volume 87 FL (80-99) Mean Corpuscular Hemoglobin 27.7 PG (27.0-31.0) Mean Corpuscular Hemoglobin Concent 31.8 G/DL (32.0-36.0) L Red Cell Distribution Width 13.7 % (11.6-14.8) Platelet Count 205 K/UL (150-450) Mean Platelet Volume 10.9 FL (6.5-10.1) H Neutrophils (%) (Auto) % (45.0-75.0) Lymphocytes (%) (Auto) % (20.0-45.0) Monocytes (%) (Auto) % (1.0-10.0) Eosinophils (%) (Auto) % (0.0-3.0) Basophils (%) (Auto) % (0.0-2.0) Differential Total Cells Counted 100 Neutrophils % (Manual) 95 % (45-75) H Lymphocytes % (Manual) 2 % (20-45) L Monocytes % (Manual) 3 % (1-10) Eosinophils % (Manual) 0 % (0-3) Basophils % (Manual) 0 % (0-2) Band Neutrophils 0 % (0-8) Platelet Estimate Adequate Platelet Morphology Normal Sodium Level 132 MMOL/L (136-145) L Potassium Level 4.3 MMOL/L (3.5-5.1) Chloride Level 101 MMOL/L (98-107) Carbon Dioxide Level 27 MMOL/L (21-32) Anion Gap 4 mmol/L (5-15) L Blood Urea Nitrogen 90 mg/dL (7-18) H Creatinine 3.9 MG/DL (0.55-1.30) H Estimat Glomerular Filtration Rate 18.8 mL/min (>60) Glucose Level 241 MG/DL (74-106) #H Calcium Level 7.9 MG/DL (8.5-10.1) L Phosphorus Level 3.5 MG/DL (2.5-4.9) Magnesium Level 2.3 MG/DL (1.8-2.4) Total Bilirubin 0.3 MG/DL (0.2-1.0) Aspartate Amino Transf (AST/SGOT) 15 U/L (15-37) Alanine Aminotransferase (ALT/SGPT) 28 U/L (12-78) Alkaline Phosphatase 103 U/L (46-116) Total Protein 5.3 G/DL (6.4-8.2) L Albumin 2.1 G/DL (3.4-5.0) L Globulin 3.2 g/dL Albumin/Globulin Ratio 0.7 (1.0-2.7) L Test 03/22/20 05:34 03/22/20 08:13 03/22/20 09:10 POC Whole Blood Glucose 216 MG/DL (74-106) H 69 MG/DL (74-106) L 91 MG/DL (74-106) Objective HEAD AND NECK: Positive JVD. LUNGS: Decreased breath sounds. Right chest PermCath in place CARDIOVASCULAR: Regular S1 and S2 with no gallop. ABDOMEN: Soft. EXTREMITIES: 2+ pitting edema in lower extremities as well as 2+ pitting edema in right arm. Ponce Serna MD Mar 22, 2020 11:26
--- NOTE | 2020-03-22 11:40 | NUR ---
NURSE NOTES: Patient transferred from [facility] to room 204-2, report received by Vannessa TAMAYO, charge nurse. Patient seen up in bed, awake and alert, on room air with no signs of distress or SOB, sats 92%. PIV on RICHARD patent and saline locked. Pt noted with dialysis permacath access on right chest, site dry, no bleeding noted. Nurse reports pt has been refusing BIPAP, machine at bedside. Pt noted with redness over sacral area, otherwise no other pressure injuries, documentation done. Belongings accounted for. Bed low and locked, siderails up x2, call light placed within reach and instructed to call nurse for assistance. Will continue with plan of care.
[2020-03-22] MEDS ORDERED: NovoLOG Insulin Flexpen SUBQ SCH (11:50)
[2020-03-22 12:00] VITALS: BP 126/76
--- NOTE | 2020-03-22 13:53 | Infectious Diseases Prog Note ---
Assessment/Plan Assessment/Plan IMPRESSION: 1. Pneumonia. 2. COPD. 3. Pulmonary edema. 4. CHF. 5. Diabetes mellitus. 6. Hypertension. 7. ESRD 8. Anemia. 9. BPH. 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 Pleural effusion 12. Leukocytosis, worsening RECOMMENDATION: Continue Levaquin Taper steroids will f/u CBC Subjective ROS Limited/Unobtainable: No Constitutional: Reports: no symptoms Respiratory: Reports: no symptoms Gastrointestinal/Abdominal: Reports: no symptoms Genitourinary: Reports: no symptoms Allergies: Coded Allergies: PENICILLINS (Verified Allergy, Unknown, 03/06/20) Uncoded Allergies: SEAFOOD (Allergy, Unknown, 03/06/20) Objective Last 24 Hour Vital Signs Date Time Temp Pulse Resp B/P (MAP) Pulse Ox O2 Delivery O2 Flow Rate FiO2 03/22/20 12:00 96.5 77 20 126/76 (93) 92 03/22/20 12:00 76 03/22/20 09:55 96 Nasal Cannula 2.0 28 03/22/20 09:55 76 18 98 Nasal Cannula 2.0 28 76 18 96 03/22/20 09:00 Nasal Cannula 2.0 03/22/20 08:27 118/70 03/22/20 08:00 97.0 75 18 118/70 (86) 96 03/22/20 08:00 76 03/22/20 05:41 101/77 03/22/20 04:00 96.8 77 18 101/77 (85) 98 03/22/20 04:00 76 03/22/20 00:00 97.7 80 18 151/70 (97) 97 03/22/20 00:00 78 03/21/20 22:27 153/80 03/21/20 21:24 82 18 99 Nasal Cannula 3.0 32 03/21/20 21:14 81 18 96 Nasal Cannula 3.0 32 03/21/20 21:00 Nasal Cannula 2.0 03/21/20 20:00 84 03/21/20 20:00 98.8 82 18 153/80 (104) 97 03/21/20 19:18 96 Nasal Cannula 2.0 28 03/21/20 16:00 98.6 89 18 148/70 (96) 95 03/21/20 16:00 91 Height (Feet): 5 Height (Inches): 9.00 Weight (Pounds): 228 General Appearance: no acute distress HEENT: mucous membranes moist Respiratory/Chest: lungs clear, other - pxygen by nasal cannula Cardiovascular: normal rate, other - Permacath Abdomen: soft, non tender Extremities: no edema Neurologic/Psychiatric: alert, responsive Laboratory Tests Test 03/21/20 16:37 03/21/20 22:14 03/22/20 03:59 03/22/20 05:34 POC Whole Blood Glucose 300 MG/DL (74-106) H 323 MG/DL (74-106) H 216 MG/DL (74-106) H White Blood Count 23.1 K/UL (4.8-10.8) *H Red Blood Count 4.01 M/UL (4.70-6.10) L Hemoglobin 11.1 G/DL (14.2-18.0) L Hematocrit 34.9 % (42.0-52.0) L Mean Corpuscular Volume 87 FL (80-99) Mean Corpuscular Hemoglobin 27.7 PG (27.0-31.0) Mean Corpuscular Hemoglobin Concent 31.8 G/DL (32.0-36.0) L Red Cell Distribution Width 13.7 % (11.6-14.8) Platelet Count 205 K/UL (150-450) Mean Platelet Volume 10.9 FL (6.5-10.1) H Neutrophils (%) (Auto) % (45.0-75.0) Lymphocytes (%) (Auto) % (20.0-45.0) Monocytes (%) (Auto) % (1.0-10.0) Eosinophils (%) (Auto) % (0.0-3.0) Basophils (%) (Auto) % (0.0-2.0) Differential Total Cells Counted 100 Neutrophils % (Manual) 95 % (45-75) H Lymphocytes % (Manual) 2 % (20-45) L Monocytes % (Manual) 3 % (1-10) Eosinophils % (Manual) 0 % (0-3) Basophils % (Manual) 0 % (0-2) Band Neutrophils 0 % (0-8) Platelet Estimate Adequate Platelet Morphology Normal Sodium Level 132 MMOL/L (136-145) L Potassium Level 4.3 MMOL/L (3.5-5.1) Chloride Level 101 MMOL/L (98-107) Carbon Dioxide Level 27 MMOL/L (21-32) Anion Gap 4 mmol/L (5-15) L Blood Urea Nitrogen 90 mg/dL (7-18) H Creatinine 3.9 MG/DL (0.55-1.30) H Estimat Glomerular Filtration Rate 18.8 mL/min (>60) Glucose Level 241 MG/DL (74-106) #H Calcium Level 7.9 MG/DL (8.5-10.1) L Phosphorus Level 3.5 MG/DL (2.5-4.9) Magnesium Level 2.3 MG/DL (1.8-2.4) Total Bilirubin 0.3 MG/DL (0.2-1.0) Aspartate Amino Transf (AST/SGOT) 15 U/L (15-37) Alanine Aminotransferase (ALT/SGPT) 28 U/L (12-78) Alkaline Phosphatase 103 U/L (46-116) Total Protein 5.3 G/DL (6.4-8.2) L Albumin 2.1 G/DL (3.4-5.0) L Globulin 3.2 g/dL Albumin/Globulin Ratio 0.7 (1.0-2.7) L Test 03/22/20 08:13 03/22/20 09:10 03/22/20 11:52 POC Whole Blood Glucose 69 MG/DL (74-106) L 91 MG/DL (74-106) 150 MG/DL (74-106) H Current Medications Medications (Trade) Dose Ordered Sig/Melissa Route PRN Reason Start Time Stop Time Status Last Admin Dose Admin Allopurinol (allopurinoL) 300 mg DAILY ORAL 03/09/20 14:30 04/08/20 14:29 03/22/20 08:27 Budesonide (Pulmicort) 0.25 mg EVERY 12 HOURS HHN 03/06/20 21:00 06/04/20 20:59 03/22/20 09:45 Chlorhexidine Gluconate (Cherry-Hex 2%) 1 applic DAILY@1999 TOPIC 03/17/20 20:00 06/15/20 19:59 03/21/20 22:29 Chlorhexidine Gluconate (Cherry-Hex 2%) 1 applic DAILY@1999 TOPIC 03/10/20 21:45 06/08/20 21:44 03/21/20 22:28 Citalopram Hydrobromide (CeleXA) 20 mg DAILY ORAL 03/10/20 09:00 04/09/20 08:59 03/22/20 08:26 Clonidine HCl (Catapres Tab) 0.1 mg Q4H PRN ORAL SBP>170 03/06/20 16:15 06/04/20 16:14 Dextrose (Dextrose 50%) 25 ml Q30M PRN IV Hypoglycemia 03/13/20 16:30 06/11/20 16:29 Dextrose (Dextrose 50%) 50 ml Q30M PRN IV Hypoglycemia 03/13/20 16:30 06/11/20 16:29 Diphenhydramine HCl (Benadryl) 50 mg Q6H PRN ORAL Itching 03/06/20 19:00 04/05/20 18:59 Docusate Sodium (Colace) 100 mg THREE TIMES A DAY ORAL 03/08/20 13:00 04/07/20 12:59 03/22/20 12:28 Guaifenesin/ Dextromethorphan (Robitussin DM Syrup) 10 ml Q4H PRN ORAL For Cough 03/06/20 19:00 06/04/20 18:59 03/12/20 00:51 Heparin Sodium (Porcine) (Heparin 5000 units/ml) 5,000 units BID SUBQ 03/07/20 09:00 04/21/20 08:59 03/21/20 17:36 Hydralazine HCl (Apresoline) 50 mg Q8HR ORAL 03/11/20 14:00 06/04/20 17:59 03/21/20 22:27 Insulin Aspart (NovoLOG) BEFORE MEALS AND HS SUBQ 03/13/20 16:30 06/11/20 16:29 03/22/20 12:26 Insulin Aspart (NovoLOG) 9 units NOVOTIAC SUBQ 03/22/20 11:50 06/13/20 06:29 03/22/20 12:28 Insulin Detemir (Levemir) 12 units BID SUBQ 03/22/20 18:00 06/13/20 08:59 Levofloxacin (Levaquin) 750 mg Q48H ORAL 03/20/20 17:00 03/27/20 16:59 03/20/20 17:29 Lisinopril (ZestriL) 5 mg DAILY ORAL 03/17/20 09:00 04/16/20 08:59 03/22/20 08:27 Lorazepam (Ativan 2mg/ml 1ml) 1 mg Q4H PRN IV Agitation 03/19/20 22:15 03/26/20 22:14 Methylprednisolone Sodium Succinate (Solu-MEDROL) 40 mg EVERY 6 HOURS IVP 03/11/20 12:00 06/09/20 11:59 03/22/20 12:28 Pantoprazole (Protonix) 40 mg EVERY 12 HOURS ORAL 03/08/20 21:00 04/07/20 20:59 03/22/20 08:27 Phenol/Menthol (Chloraseptic) 1 spray TIDPRN PRN ORAL For Pain 03/06/20 19:00 06/04/20 18:59 Sevelamer Carbonate (Renvela) 1,600 mg THREE TIMES A DAY ORAL 03/09/20 09:00 06/07/20 08:59 03/22/20 12:28 Tamsulosin HCl (Flomax) 0.4 mg BID ORAL 03/08/20 11:30 04/07/20 11:29 03/22/20 08:27 Vitamin B Complex (Vitamin B Complex) 1 tab DAILY ORAL 03/07/20 09:00 06/05/20 08:59 03/22/20 09:05 Brett Pleitez MD Mar 22, 2020 13:53
[2020-03-22 16:00] VITALS: BP 107/63
--- NOTE | 2020-03-22 16:25 | NUR ---
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 96.5 HR 77 RR 18 B/P 126/76 2L NC WBC 25.1 NA 132 BUN 90 CR 3.9 IS: SOLU MEDROL IV LEVAQUIN PO PROTONIX PO OUTPT HD TELE STATUS
--- NOTE | 2020-03-22 16:27 | NUR ---
[employer] GAUGER NOTES CLINICALS REVIEWED AND FAXED.
[2020-03-22] MEDS: Levofloxacin 750mg tab ORAL SCH (16:52)
[2020-03-22] MEDS: Levemir Flexpen SUBQ SCH (17:25)
--- NOTE | 2020-03-22 19:30 | NUR ---
NURSE HAND-OFF REPORT: Important Events on Shift: Transferred from [facility], no adverse events noted Patient Status: Stable Diet: Renal Pending Orders: N Pending Results/Labs:None Pending MD notification:None Latest Vital Signs: Temperature 96.9 , Pulse 77 , B/P 107 /63 , Respiratory Rate 20 , O2 SAT 98 , Nasal Cannula, O2 Flow Rate 2.0 . Vital Sign Comment: EKG Rhythm: SR w/ BBB Rhythm change?: N MD Notified?: N - MD Response: Latest Ryan Fall Score: 60 Fall Risk: High Risk Safety Measures: Call light Within Reach, Bed Alarm Zone 2, Side Rails Side Rails x3, Bed position Low and Locked. Fall Precautions: Yellow Socks Yellow Gown Door Sign Patient Fall Education Report given to Don TAMAYO.
--- NOTE | 2020-03-22 19:32 | NUR ---
NURSE NOTES: The patient is alert and oriented x4 and does not appear to be in any distress at this time. The Resp is even and unlabored and he is currently on oxygen via NC @ 2 liters well tolerated. The patient also has a Bipap at bedside to be use at bedtime.The patient has a left upper arm 20g IV line that is patent and asymptomatic and a Right upper chest PermCath use for dialysis. The bed in low level and locked with call light within easy reach and bed side rails up x2. will continue to monitor as indicated
[2020-03-22 20:00] VITALS: BP 130/79
--- NOTE | 2020-03-22 20:56 | General Progress Note ---
Subjective ROS Limited/Unobtainable: Yes Allergies: Coded Allergies: PENICILLINS (Verified Allergy, Unknown, 03/06/20) Uncoded Allergies: SEAFOOD (Allergy, Unknown, 03/06/20) Objective Last 24 Hour Vital Signs Date Time Temp Pulse Resp B/P (MAP) Pulse Ox O2 Delivery O2 Flow Rate FiO2 03/22/20 19:16 95 Nasal Cannula 2.0 28 03/22/20 16:00 77 03/22/20 16:00 96.9 79 20 107/63 (78) 98 03/22/20 14:24 126/76 03/22/20 12:00 96.5 77 20 126/76 (93) 92 03/22/20 12:00 76 03/22/20 09:55 96 Nasal Cannula 2.0 28 03/22/20 09:55 76 18 98 Nasal Cannula 2.0 28 76 18 96 03/22/20 09:00 Nasal Cannula 2.0 03/22/20 08:27 118/70 03/22/20 08:00 97.0 75 18 118/70 (86) 96 03/22/20 08:00 76 03/22/20 05:41 101/77 03/22/20 04:00 96.8 77 18 101/77 (85) 98 03/22/20 04:00 76 03/22/20 00:00 97.7 80 18 151/70 (97) 97 03/22/20 00:00 78 03/21/20 22:27 153/80 03/21/20 21:24 82 18 99 Nasal Cannula 3.0 32 03/21/20 21:14 81 18 96 Nasal Cannula 3.0 32 03/21/20 21:00 Nasal Cannula 2.0 Intake and Output 03/21/20 03/22/20 19:00 07:00 Intake Total 1000 ml 1100 ml Output Total 700 ml 300 ml Balance 300 ml 800 ml Intake Oral 1000 ml 1100 ml Output Urine Total 700 ml 300 ml # Voids 3 2 # Bowel Movements 1 1 Laboratory Tests 03/21/20 22:14: POC Whole Blood Glucose 323H 03/22/20 03:59: White Blood Count 23.1*H, Red Blood Count 4.01L, Hemoglobin 11.1L, Hematocrit 34.9L, Mean Corpuscular Volume 87, Mean Corpuscular Hemoglobin 27.7, Mean Corpuscular Hemoglobin Concent 31.8L, Red Cell Distribution Width 13.7, Platelet Count 205, Mean Platelet Volume 10.9H, Neutrophils (%) (Auto) , Lymphocytes (%) (Auto) , Monocytes (%) (Auto) , Eosinophils (%) (Auto) , Basophils (%) (Auto) , Differential Total Cells Counted 100, Neutrophils % (Manual) 95H, Lymphocytes % (Manual) 2L, Monocytes % (Manual) 3, Eosinophils % (Manual) 0, Basophils % (Manual) 0, Band Neutrophils 0, Platelet Estimate Adequate, Platelet Morphology Normal, Sodium Level 132L, Potassium Level 4.3, Chloride Level 101, Carbon Dioxide Level 27, Anion Gap 4L, Blood Urea Nitrogen 90H, Creatinine 3.9H, Estimat Glomerular Filtration Rate 18.8, Glucose Level 241#H, Calcium Level 7.9L , Phosphorus Level 3.5, Magnesium Level 2.3, Total Bilirubin 0.3, Aspartate Amino Transf (AST/SGOT) 15, Alanine Aminotransferase (ALT/SGPT) 28, Alkaline Phosphatase 103, Total Protein 5.3L, Albumin 2.1L, Globulin 3.2, Albumin/Globulin Ratio 0.7L 03/22/20 05:34: POC Whole Blood Glucose 216H 03/22/20 08:13: POC Whole Blood Glucose 69L 03/22/20 09:10: POC Whole Blood Glucose 91 03/22/20 11:52: POC Whole Blood Glucose 150H 03/22/20 16:16: POC Whole Blood Glucose [Pending] Height (Feet): 5 Height (Inches): 9.00 Weight (Pounds): 228 Assessment/Plan Problem List: (1) COPD (chronic obstructive pulmonary disease) ICD Codes: J44.9 - Chronic obstructive pulmonary disease, unspecified SNOMED: 45643884 Qualifiers: Qualified Codes: J44.1 - Chronic obstructive pulmonary disease with (acute) exacerbation (2) CHF (congestive heart failure) ICD Codes: I50.9 - Heart failure, unspecified SNOMED: 53457759 Qualifiers: Qualified Codes: I50.9 - Heart failure, unspecified (3) Hypoxia ICD Codes: R09.02 - Hypoxemia SNOMED: 208277827 (4) Renal failure (ARF), acute on chronic ICD Codes: N17.9 - Acute kidney failure, unspecified; N18.9 - Chronic kidney disease, unspecified SNOMED: 233832462 Qualifiers: Qualified Codes: N17.9 - Acute kidney failure, unspecified; N18.4 - Chronic kidney disease, stage 4 (severe) Status: progressing Assessment/Plan: resp insuff copd improving chf exacerbation improving check lytes vitals stable John Chavez MD Mar 22, 2020 20:56
--- NOTE | 2020-03-22 22:00 | NUR ---
NURSE NOTES: The patient was started on a bipap machine by the RT but he took it off after 5 Mins, saying he does not like it. He remained stable
[2020-03-22] MEDS: Dyna-Hex 2% Top Sol 2oz TOPIC SCH ×2 (22:21→22:22)
--- NOTE | 2020-03-22 23:22 | Psychiatric Progress Note ---
Psychiatry Progress Note Psychiatry Progress Note Subjective the pt is having anxiety and irritable unstable gait Medications Current Medications Medications (Trade) Dose Ordered Sig/Melissa Route PRN Reason Start Time Stop Time Status Last Admin Dose Admin Allopurinol (allopurinoL) 300 mg DAILY ORAL 03/09/20 14:30 04/08/20 14:29 03/22/20 08:27 Budesonide (Pulmicort) 0.25 mg EVERY 12 HOURS HHN 03/06/20 21:00 06/04/20 20:59 03/22/20 21:11 Chlorhexidine Gluconate (Cherry-Hex 2%) 1 applic DAILY@1999 TOPIC 03/17/20 20:00 06/15/20 19:59 03/22/20 22:22 Chlorhexidine Gluconate (Cherry-Hex 2%) 1 applic DAILY@1999 TOPIC 03/10/20 21:45 06/08/20 21:44 03/22/20 22:21 Citalopram Hydrobromide (CeleXA) 20 mg DAILY ORAL 03/10/20 09:00 04/09/20 08:59 03/22/20 08:26 Clonidine HCl (Catapres Tab) 0.1 mg Q4H PRN ORAL SBP>170 03/06/20 16:15 06/04/20 16:14 Dextrose (Dextrose 50%) 25 ml Q30M PRN IV Hypoglycemia 03/13/20 16:30 06/11/20 16:29 Dextrose (Dextrose 50%) 50 ml Q30M PRN IV Hypoglycemia 03/13/20 16:30 06/11/20 16:29 Diphenhydramine HCl (Benadryl) 50 mg Q6H PRN ORAL Itching 03/06/20 19:00 04/05/20 18:59 03/22/20 22:22 Docusate Sodium (Colace) 100 mg THREE TIMES A DAY ORAL 03/08/20 13:00 04/07/20 12:59 03/22/20 12:28 Guaifenesin/ Dextromethorphan (Robitussin DM Syrup) 10 ml Q4H PRN ORAL For Cough 03/06/20 19:00 06/04/20 18:59 03/12/20 00:51 Heparin Sodium (Porcine) (Heparin 5000 units/ml) 5,000 units BID SUBQ 03/07/20 09:00 12/16/20 08:59 03/22/20 17:25 Hydralazine HCl (Apresoline) 50 mg Q8HR ORAL 03/11/20 14:00 06/04/20 17:59 03/22/20 22:21 Insulin Aspart (NovoLOG) BEFORE MEALS AND HS SUBQ 03/13/20 16:30 06/11/20 16:29 03/22/20 22:25 Insulin Aspart (NovoLOG) 9 units NOVOTIAC SUBQ 03/22/20 11:50 06/13/20 06:29 03/22/20 16:54 Insulin Detemir (Levemir) 12 units BID SUBQ 03/22/20 18:00 06/13/20 08:59 03/22/20 17:25 Levofloxacin (Levaquin) 750 mg Q48H ORAL 03/20/20 17:00 03/27/20 16:59 03/22/20 16:52 Lisinopril (ZestriL) 5 mg DAILY ORAL 03/17/20 09:00 04/16/20 08:59 03/22/20 08:27 Lorazepam (Ativan 2mg/ml 1ml) 1 mg Q4H PRN IV Agitation 03/19/20 22:15 03/26/20 22:14 Methylprednisolone Sodium Succinate (Solu-MEDROL) 40 mg EVERY 6 HOURS IVP 03/11/20 12:00 06/09/20 11:59 03/22/20 17:09 Pantoprazole (Protonix) 40 mg EVERY 12 HOURS ORAL 03/08/20 21:00 04/07/20 20:59 03/22/20 22:21 Phenol/Menthol (Chloraseptic) 1 spray TIDPRN PRN ORAL For Pain 03/06/20 19:00 06/04/20 18:59 Sevelamer Carbonate (Renvela) 1,600 mg THREE TIMES A DAY ORAL 03/09/20 09:00 06/07/20 08:59 03/22/20 17:09 Tamsulosin HCl (Flomax) 0.4 mg BID ORAL 03/08/20 11:30 04/07/20 11:29 03/22/20 17:09 Vitamin B Complex (Vitamin B Complex) 1 tab DAILY ORAL 03/07/20 09:00 06/05/20 08:59 03/22/20 09:05 Neurological/Psychiatric: Reports: anxiety, depressed, emotional problems Allergies: Coded Allergies: PENICILLINS (Verified Allergy, Unknown, 03/06/20) Uncoded Allergies: SEAFOOD (Allergy, Unknown, 03/06/20) Objective Data Height (Feet): 5 Height (Inches): 9.00 Weight (Pounds): 228 General Appearance: no apparent distress, confused Mental Status Exam - Mood: anxious Additional Comments: alert and oriented times self, place, and situation. Mood is anxious. Affect is blunted, congruent with mood. Thought process is linear and goal oriented. Thought content, no suicidal or homicidal ideation. Cognition is intact. Insight and judgment is fair. Assessment/Plan Hamilton I: ASSESSMENT: Hamilton I Anxiety disorder. Hamilton II Deferred. Hamilton III As above. Hamilton IV Low. Hamilton V 50. PLAN: 1. We will start the patient on Celexa 20 mg in the morning. 2. Ativan as needed. 3. Provide the patient with reality orientation, supportive therapy, and medication. 4. the pt has capacity to make decisions Status: progressing Status Narrative ASSESSMENT: Hamilton I Anxiety disorder. Hamilton II Deferred. Hamilton III As above. Hamilton IV Low. Hamilton V 50. PLAN: 1. We will start the patient on Celexa 20 mg in the morning. 2. Ativan as needed. 3. Provide the patient with reality orientation, supportive therapy, and medication. 4. the pt has capacity to make decisions Assessment/Plan: ASSESSMENT: Hamilton I Anxiety disorder. Hamilton II Deferred. Hamilton III As above. Hamilton IV Low. Hamilton V 50. PLAN: 1. We will start the patient on Celexa 20 mg in the morning. 2. Ativan as needed. 3. Provide the patient with reality orientation, supportive therapy, and medication. 4. the pt has capacity to make decisions Kwasi Diaz MD Mar 22, 2020 23:22
[2020-03-23] VITALS (17 sets, daily range): BP systolic 109–159; BP diastolic 63–88
[2020-03-23] MEDS: Solu-MEDROL 40mg Inj IVP SCH ×3 (00:27→18:40)
[2020-03-23] MEDS: HydrALAZINE 50mg tab ORAL SCH ×3 (05:57→21:17)
[2020-03-23] MEDS: NovoLOG Insulin Flexpen SUBQ SCH ×7 (05:59→21:19)
--- NOTE | 2020-03-23 07:10 | NUR ---
NURSE HAND-OFF REPORT: Important Events on Shift:Sinus Rhythms with BBB, slept about 7 hrs last night Patient Status: Diet: Pending Orders: Pending Results/Labs: Pending MD notification: Latest Vital Signs: Temperature 97.6 , Pulse 77 , B/P 153 /83 , Respiratory Rate 19 , O2 SAT 95 , Nasal Cannula, O2 Flow Rate 2.0 . Vital Sign Comment: EKG Rhythm: SR w/ BBB Rhythm change?: N MD Notified?: N - MD Response: Latest Ryan Fall Score: 60 Fall Risk: High Risk Safety Measures: Call light Within Reach, Bed Alarm Zone 2, Side Rails Side Rails x3, Bed position Low and Locked. Fall Precautions: Yellow Socks Yellow Gown Door Sign Patient Fall Education Report given to .
[2020-03-23 07:26] LABS: HEMATOCRIT 36.3 % (42.0-52.0); HEMOGLOBIN 11.4 G/DL (14.2-18.0); MEAN CORPUSCULAR VOLUME 87 FL (80-99); PLATELET COUNT 193 K/UL (150-450); RED BLOOD COUNT 4.17 M/UL (4.70-6.10); RED CELL DISTRIBUTION WIDTH 13.6 % (11.6-14.8); WHITE BLOOD COUNT 17.1 K/UL (4.8-10.8)
--- NOTE | 2020-03-23 07:33 | Cardiac Electrophysiology PN ---
Assessment/Plan Assessment/Plan 1. Severe bilateral lower extremity edema with shortness of breath and BNP of almost 4000. EF 60%. Due to CHF due to diastolic dysfunction and renal failure, on HD. 2. Hypertension. On HD , hydralazine 50 mg tid and p.r.n. clonidine. 3. Renal failure, creatinine was 3.9 that increased to >4 with BUN 80. Started on HD.Pulled out his Right groin Janusz cath S/P Right chest PermCath placement 03/17/20 4. COPD.On BIPAP whenever he agrees to it DW RN Subjective Subjective No CP. ECG SR with RBBB, LAFB On Nasal Cannula. S/P Right chest PermCath placement 03/17/20 Noncompliant. On 2 liter NC and had HD yesterday Refused Bipap at night Objective Last 24 Hour Vital Signs Date Time Temp Pulse Resp B/P (MAP) Pulse Ox O2 Delivery O2 Flow Rate FiO2 03/23/20 05:57 153/83 03/23/20 04:00 77 03/23/20 04:00 97.6 86 19 153/83 (106) 95 03/23/20 00:00 98.1 85 21 126/80 (95) 95 03/23/20 00:00 90 03/22/20 22:21 130/79 03/22/20 21:33 86 27 97 48 03/22/20 21:14 85 18 97 Nasal Cannula 2.0 28 82 18 96 03/22/20 21:00 Nasal Cannula 2.0 03/22/20 20:00 98.4 83 20 130/79 (96) 96 03/22/20 20:00 87 03/22/20 19:16 95 Nasal Cannula 2.0 28 03/22/20 16:00 77 03/22/20 16:00 96.9 79 20 107/63 (78) 98 03/22/20 14:24 126/76 03/22/20 12:00 96.5 77 20 126/76 (93) 92 03/22/20 12:00 76 03/22/20 09:55 96 Nasal Cannula 2.0 28 03/22/20 09:55 76 18 98 Nasal Cannula 2.0 28 76 18 96 03/22/20 09:00 Nasal Cannula 2.0 03/22/20 08:27 118/70 03/22/20 08:00 97.0 75 18 118/70 (86) 96 03/22/20 08:00 76 Intake and Output 03/22/20 03/23/20 19:00 07:00 Intake Total 800 ml 640 ml Output Total 2000 ml 620 ml Balance -1200 ml 20 ml Intake Oral 800 ml 640 ml Output Urine Total 620 ml Hemodialysis UF 2000 ml # Voids 2 2 # Bowel Movements 2 1 Laboratory Tests Test 03/22/20 08:13 03/22/20 09:10 03/22/20 11:52 03/22/20 16:16 POC Whole Blood Glucose 69 MG/DL (74-106) L 91 MG/DL (74-106) 150 MG/DL (74-106) H Pending Test 03/22/20 20:59 03/23/20 05:37 03/23/20 05:40 POC Whole Blood Glucose 264 MG/DL (74-106) H 200 MG/DL (74-106) H White Blood Count Pending Red Blood Count Pending Hemoglobin Pending Hematocrit Pending Mean Corpuscular Volume Pending Mean Corpuscular Hemoglobin Pending Mean Corpuscular Hemoglobin Concent Pending Red Cell Distribution Width Pending Platelet Count Pending Mean Platelet Volume Pending Neutrophils (%) (Auto) Pending Lymphocytes (%) (Auto) Pending Monocytes (%) (Auto) Pending Eosinophils (%) (Auto) Pending Basophils (%) (Auto) Pending Sodium Level Pending Potassium Level Pending Chloride Level Pending Carbon Dioxide Level Pending Blood Urea Nitrogen Pending Creatinine Pending Estimat Glomerular Filtration Rate Pending Glucose Level Pending Calcium Level Pending Phosphorus Level Pending Magnesium Level Pending Total Bilirubin Pending Aspartate Amino Transf (AST/SGOT) Pending Alanine Aminotransferase (ALT/SGPT) Pending Alkaline Phosphatase Pending C-Reactive Protein, Quantitative Pending Pro-B-Type Natriuretic Peptide Pending Total Protein Pending Albumin Pending Globulin Pending Objective HEAD AND NECK: Positive JVD. LUNGS: Decreased breath sounds. Right chest PermCath in place CARDIOVASCULAR: Regular S1 and S2 with no gallop. ABDOMEN: Soft. EXTREMITIES: 2+ pitting edema in lower extremities as well as 2+ pitting edema in right arm. Ponce Serna MD Mar 23, 2020 07:32
--- NOTE | 2020-03-23 07:40 | NUR ---
NURSE NOTES: RN called to patient's room by another RN. Patient was found on the floor sitting on the left side of his bed. Gown partially off, groundwater monitoring technician removed, Side rails up x2, bed at the lowest position, yellow socks on, yellow gown on, bed alarm on, call light in the bed. Floor free of clutter, plenty of light in the room. Patient states "will you get away from me, I am trying to get to the toilet." Patient states he hit his head, with pain 0/10. Patient placed back into bed by 2 RN, VS taken, neuro checks started, skin assessment done. Patient assisted to toilet with 2 RN assist. Gait is unsteady. RN offered bedpan and bedside commode. Patient refused and yelled "I will only use the toilet. Get out of my way, I will use it on my own!" RN re-educated patient to call when he needs to use the toilet and wait for assistance. Redness found on left elbow and right elbow. Dr. chavez contacted regarding fall. Bed Remained at the lowest level, side rails up x2, call light within reach with return demonstration, yellow gown on, yellow socks on, bed alarm on, patient already in a room close to the nurse's station. Dr. Chavez contacted with orders to contact Dr. lopez and Dr. Landon.
--- NOTE | 2020-03-23 07:45 | NUR ---
NURSE NOTES: Dr Diaz contacted regarding fall. No new orders. Dr. Diaz to make rounds with the patient today.
[2020-03-23 07:47] LABS: ALBUMIN/GLOBULIN RATIO 0.6 (1.0-2.7); BILIRUBIN,TOTAL 0.3 MG/DL (0.2-1.0); CALCIUM 7.8 MG/DL (8.5-10.1); CREATININE 3.5 MG/DL (0.55-1.30); PHOSPHORUS 3.4 MG/DL (2.5-4.9); POTASSIUM 4.9 MMOL/L (3.5-5.1)
--- NOTE | 2020-03-23 07:50 | NUR ---
NURSE NOTES: Dr. Landon office contacted regarding fall. Message left with Shari in doctor's office.
--- NOTE | 2020-03-23 08:00 | NUR ---
NURSE NOTES: Kim Sanchez (mother, ) contacted regarding fall. No answer, message left with answering service. Call back number and name given.
--- NOTE | 2020-03-23 09:00 | NUR ---
NURSE NOTES: RN spoke with mother (Kim). Made aware of fall today. Updated on patient's status. Informed her patient is back in bed talking, eating and watching TV, assessed, VS done, Doctor's informed, fall protocol initiated. Kim states "okay, please inform Sylvester I called."
[2020-03-23] MEDS: Citalopram Hydrobromide 10mg Tab ORAL SCH (09:26)
[2020-03-23] MEDS: Docusate 100mg cap ORAL SCH ×3 (09:26→18:33)
[2020-03-23] MEDS: Vitamin B Complex Tab ORAL SCH (09:27)
[2020-03-23] MEDS: Lisinopril 2.5mg tab ORAL SCH (09:27)
[2020-03-23] MEDS: Tamsulosin 0.4mg cap ORAL SCH ×2 (09:27→18:33)
[2020-03-23] MEDS: Heparin 5000 units/ml inj SUBQ SCH ×2 (09:30→18:34)
[2020-03-23] MEDS: Levemir Flexpen SUBQ SCH ×2 (09:33→18:35)
[2020-03-23] MEDS: Budesonide HHN 0.25mg/2ml ud HHN SCH ×2 (09:44→21:00)
--- NOTE | 2020-03-23 10:23 | Pulmonology Progress Note ---
Subjective ROS Limited/Unobtainable: Yes Interval Events: Now on nasal oxygen. Constitutional: Reports: no symptoms HEENT: Repors: no symptoms Respiratory: Reports: no symptoms Cardiovascular: Reports: no symptoms Gastrointestinal/Abdominal: Reports: no symptoms Genitourinary: Reports: no symptoms Allergies: Coded Allergies: PENICILLINS (Verified Allergy, Unknown, 03/06/20) Uncoded Allergies: SEAFOOD (Allergy, Unknown, 03/06/20) All Systems: reviewed and negative except above Objective Last 24 Hour Vital Signs Date Time Temp Pulse Resp B/P (MAP) Pulse Ox O2 Delivery O2 Flow Rate FiO2 03/23/20 10:09 98.7 92 03/23/20 09:27 132/80 03/23/20 09:10 98.4 92 03/23/20 09:00 Nasal Cannula 2.0 03/23/20 08:40 98.6 95 03/23/20 08:10 98.5 98 03/23/20 08:00 98 03/23/20 08:00 98.5 88 18 138/77 (97) 98 03/23/20 07:40 Room Air 03/23/20 07:40 98.1 97 03/23/20 05:57 153/83 03/23/20 04:00 77 03/23/20 04:00 97.6 86 19 153/83 (106) 95 03/23/20 00:00 98.1 85 21 126/80 (95) 95 03/23/20 00:00 90 03/22/20 22:21 130/79 03/22/20 21:33 86 27 97 48 03/22/20 21:14 85 18 97 Nasal Cannula 2.0 28 82 18 96 03/22/20 21:00 Nasal Cannula 2.0 03/22/20 20:00 98.4 83 20 130/79 (96) 96 03/22/20 20:00 87 03/22/20 19:16 95 Nasal Cannula 2.0 28 03/22/20 16:00 77 03/22/20 16:00 96.9 79 20 107/63 (78) 98 03/22/20 14:24 126/76 03/22/20 12:00 96.5 77 20 126/76 (93) 92 03/22/20 12:00 76 Intake and Output 03/22/20 03/23/20 19:00 07:00 Intake Total 800 ml 640 ml Output Total 2000 ml 620 ml Balance -1200 ml 20 ml Intake Oral 800 ml 640 ml Output Urine Total 620 ml Hemodialysis UF 2000 ml # Voids 2 2 # Bowel Movements 2 1 General Appearance: no acute distress HEENT: normocephalic Respiratory: chest wall non-tender, decreased breath sounds Cardiovascular: normal peripheral pulses, normal rate Abdomen: normal bowel sounds Laboratory Tests 03/22/20 11:52: POC Whole Blood Glucose 150H 03/22/20 16:16: POC Whole Blood Glucose [Pending] 03/22/20 20:59: POC Whole Blood Glucose 264H 03/23/20 05:37: POC Whole Blood Glucose 200H 03/23/20 05:40: White Blood Count 17.1H, Red Blood Count 4.17L, Hemoglobin 11.4L, Hematocrit 36.3L, Mean Corpuscular Volume 87, Mean Corpuscular Hemoglobin 27.4, Mean Corpuscular Hemoglobin Concent 31.5L, Red Cell Distribution Width 13.6, Platelet Count 193, Mean Platelet Volume 10.3H, Neutrophils (%) (Auto) , Lymphocytes (%) (Auto) , Monocytes (%) (Auto) , Eosinophils (%) (Auto) , Basophils (%) (Auto) , Neutrophils % (Manual) [Pending], Lymphocytes % (Manual) [Pending], Platelet Estimate [Pending], Platelet Morphology [Pending], Sodium Level 134L, Potassium Level 4.9, Chloride Level 100, Carbon Dioxide Level 27, Anion Gap 7, Blood Urea Nitrogen 70H, Creatinine 3.5H, Estimat Glomerular Filtration Rate 21.2, Glucose Level 209H, Calcium Level 7.8L, Phosphorus Level 3.4, Magnesium Level 2.2, Total Bilirubin 0.3, Aspartate Amino Transf (AST/SGOT) 15, Alanine Aminotransferase (ALT/SGPT) 30, Alkaline Phosphatase 98, C-Reactive Protein, Quantitative 0.5, Pro-B-Type Natriuretic Peptide 1575H, Total Protein 5.2L, Albumin 2.0L, Globulin 3.2, Albumin/Globulin Ratio 0.6L Current Medications Medications (Trade) Dose Ordered Sig/Melissa Route PRN Reason Start Time Stop Time Status Last Admin Dose Admin Allopurinol (allopurinoL) 300 mg DAILY ORAL 03/09/20 14:30 04/08/20 14:29 03/23/20 09:27 Budesonide (Pulmicort) 0.25 mg EVERY 12 HOURS HHN 03/06/20 21:00 06/04/20 20:59 03/23/20 09:44 Chlorhexidine Gluconate (Cherry-Hex 2%) 1 applic DAILY@1999 TOPIC 03/17/20 20:00 06/15/20 19:59 03/22/20 22:22 Chlorhexidine Gluconate (Cherry-Hex 2%) 1 applic DAILY@1999 TOPIC 03/10/20 21:45 06/08/20 21:44 03/22/20 22:21 Citalopram Hydrobromide (CeleXA) 20 mg DAILY ORAL 03/10/20 09:00 04/09/20 08:59 03/23/20 09:26 Clonidine HCl (Catapres Tab) 0.1 mg Q4H PRN ORAL SBP>170 03/06/20 16:15 06/04/20 16:14 Dextrose (Dextrose 50%) 25 ml Q30M PRN IV Hypoglycemia 03/13/20 16:30 06/11/20 16:29 Dextrose (Dextrose 50%) 50 ml Q30M PRN IV Hypoglycemia 03/13/20 16:30 06/11/20 16:29 Diphenhydramine HCl (Benadryl) 50 mg Q6H PRN ORAL Itching 03/06/20 19:00 04/05/20 18:59 03/22/20 22:22 Docusate Sodium (Colace) 100 mg THREE TIMES A DAY ORAL 03/08/20 13:00 04/07/20 12:59 03/23/20 09:26 Guaifenesin/ Dextromethorphan (Robitussin DM Syrup) 10 ml Q4H PRN ORAL For Cough 03/06/20 19:00 06/04/20 18:59 03/12/20 00:51 Heparin Sodium (Porcine) (Heparin 5000 units/ml) 5,000 units BID SUBQ 03/07/20 09:00 04/21/20 08:59 03/23/20 09:30 Hydralazine HCl (Apresoline) 50 mg Q8HR ORAL 03/11/20 14:00 06/04/20 17:59 03/23/20 05:57 Insulin Aspart (NovoLOG) BEFORE MEALS AND HS SUBQ 03/13/20 16:30 06/11/20 16:29 03/23/20 05:59 Insulin Aspart (NovoLOG) 9 units NOVOTIAC SUBQ 03/22/20 11:50 06/13/20 06:29 03/23/20 06:03 Insulin Detemir (Levemir) 12 units BID SUBQ 03/22/20 18:00 06/13/20 08:59 03/23/20 09:33 Levofloxacin (Levaquin) 750 mg Q48H ORAL 03/20/20 17:00 03/27/20 16:59 03/22/20 16:52 Lisinopril (ZestriL) 5 mg DAILY ORAL 03/17/20 09:00 04/16/20 08:59 03/23/20 09:27 Lorazepam (Ativan 2mg/ml 1ml) 1 mg Q4H PRN IV Agitation 03/19/20 22:15 03/26/20 22:14 Methylprednisolone Sodium Succinate (Solu-MEDROL) 40 mg EVERY 6 HOURS IVP 03/11/20 12:00 06/09/20 11:59 03/23/20 05:57 Pantoprazole (Protonix) 40 mg EVERY 12 HOURS ORAL 03/08/20 21:00 04/07/20 20:59 03/23/20 09:27 Phenol/Menthol (Chloraseptic) 1 spray TIDPRN PRN ORAL For Pain 03/06/20 19:00 06/04/20 18:59 Sevelamer Carbonate (Renvela) 1,600 mg THREE TIMES A DAY ORAL 03/09/20 09:00 06/07/20 08:59 03/23/20 09:26 Tamsulosin HCl (Flomax) 0.4 mg BID ORAL 03/08/20 11:30 04/07/20 11:29 03/23/20 09:27 Vitamin B Complex (Vitamin B Complex) 1 tab DAILY ORAL 03/07/20 09:00 06/05/20 08:59 03/23/20 09:27 Assessment/Plan Assessment/Plan IMPRESSION: 1. Improved pulmonary edema/ s/p HD 2. Hypertension. 3. Diabetes mellitus. 4. Renal failure. 5. COPD. 6. Negative COVID 19 7. Small R pleural effusion 8. Peristent leucocytosis DISCUSSION: Continue breathing treatments with albuterol and Atrovent Negative COVID 19 Broad-spectrum antibiotics I will follow carefully. HD per renal Oxygenation improved Continue on nasal oxygen. DC BiPAp Jie Rivera Omar Syed MD Mar 23, 2020 10:23
--- NOTE | 2020-03-23 11:00 | NUR ---
NURSE NOTES: BiPAP discontinued per Dr Caceres. Informed of fall today.
--- NOTE | 2020-03-23 11:57 | Infectious Diseases Prog Note ---
Assessment/Plan Assessment/Plan IMPRESSION: 1. Pneumonia. 2. COPD. 3. Pulmonary edema. 4. CHF. 5. Diabetes mellitus. 6. Hypertension. 7. ESRD 8. Anemia. 9. BPH. 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 Pleural effusion 12. Leukocytosis, worsening RECOMMENDATION: Continue Levaquin Taper steroids will f/u CBC Subjective ROS Limited/Unobtainable: No Constitutional: Reports: no symptoms Respiratory: Reports: shortness of breath, other - mild Gastrointestinal/Abdominal: Reports: no symptoms Genitourinary: Reports: no symptoms Allergies: Coded Allergies: PENICILLINS (Verified Allergy, Unknown, 03/06/20) Uncoded Allergies: SEAFOOD (Allergy, Unknown, 03/06/20) Objective Last 24 Hour Vital Signs Date Time Temp Pulse Resp B/P (MAP) Pulse Ox O2 Delivery O2 Flow Rate FiO2 03/23/20 10:09 98.7 92 03/23/20 09:27 132/80 03/23/20 09:10 98.4 92 03/23/20 09:00 Nasal Cannula 2.0 03/23/20 08:40 98.6 95 03/23/20 08:10 98.5 98 03/23/20 08:00 98 03/23/20 08:00 98.5 88 18 138/77 (97) 98 03/23/20 07:40 Room Air 03/23/20 07:40 98.1 97 03/23/20 05:57 153/83 03/23/20 04:00 77 03/23/20 04:00 97.6 86 19 153/83 (106) 95 03/23/20 00:00 98.1 85 21 126/80 (95) 95 03/23/20 00:00 90 03/22/20 22:21 130/79 03/22/20 21:33 86 27 97 48 03/22/20 21:14 85 18 97 Nasal Cannula 2.0 28 82 18 96 03/22/20 21:00 Nasal Cannula 2.0 03/22/20 20:00 98.4 83 20 130/79 (96) 96 03/22/20 20:00 87 03/22/20 19:16 95 Nasal Cannula 2.0 28 03/22/20 16:00 77 03/22/20 16:00 96.9 79 20 107/63 (78) 98 03/22/20 14:24 126/76 03/22/20 12:00 96.5 77 20 126/76 (93) 92 03/22/20 12:00 76 Height (Feet): 5 Height (Inches): 9.00 Weight (Pounds): 228 General Appearance: no acute distress HEENT: mucous membranes moist Respiratory/Chest: lungs clear, other - oxygen by nasal cannula Cardiovascular: normal rate Abdomen: soft, non tender Extremities: no edema Neurologic/Psychiatric: alert, oriented x 3, responsive Laboratory Tests Test 03/22/20 16:16 03/22/20 20:59 03/23/20 05:37 03/23/20 05:40 POC Whole Blood Glucose Pending 264 MG/DL (74-106) H 200 MG/DL (74-106) H White Blood Count 17.1 K/UL (4.8-10.8) H Red Blood Count 4.17 M/UL (4.70-6.10) L Hemoglobin 11.4 G/DL (14.2-18.0) L Hematocrit 36.3 % (42.0-52.0) L Mean Corpuscular Volume 87 FL (80-99) Mean Corpuscular Hemoglobin 27.4 PG (27.0-31.0) Mean Corpuscular Hemoglobin Concent 31.5 G/DL (32.0-36.0) L Red Cell Distribution Width 13.6 % (11.6-14.8) Platelet Count 193 K/UL (150-450) Mean Platelet Volume 10.3 FL (6.5-10.1) H Neutrophils (%) (Auto) % (45.0-75.0) Lymphocytes (%) (Auto) % (20.0-45.0) Monocytes (%) (Auto) % (1.0-10.0) Eosinophils (%) (Auto) % (0.0-3.0) Basophils (%) (Auto) % (0.0-2.0) Differential Total Cells Counted 100 Neutrophils % (Manual) 94 % (45-75) H Lymphocytes % (Manual) 4 % (20-45) L Monocytes % (Manual) 2 % (1-10) Eosinophils % (Manual) 0 % (0-3) Basophils % (Manual) 0 % (0-2) Band Neutrophils 0 % (0-8) Platelet Estimate Adequate Platelet Morphology Normal Hypochromasia 1+ Sodium Level 134 MMOL/L (136-145) L Potassium Level 4.9 MMOL/L (3.5-5.1) Chloride Level 100 MMOL/L (98-107) Carbon Dioxide Level 27 MMOL/L (21-32) Anion Gap 7 mmol/L (5-15) Blood Urea Nitrogen 70 mg/dL (7-18) H Creatinine 3.5 MG/DL (0.55-1.30) H Estimat Glomerular Filtration Rate 21.2 mL/min (>60) Glucose Level 209 MG/DL (74-106) H Calcium Level 7.8 MG/DL (8.5-10.1) L Phosphorus Level 3.4 MG/DL (2.5-4.9) Magnesium Level 2.2 MG/DL (1.8-2.4) Total Bilirubin 0.3 MG/DL (0.2-1.0) Aspartate Amino Transf (AST/SGOT) 15 U/L (15-37) Alanine Aminotransferase (ALT/SGPT) 30 U/L (12-78) Alkaline Phosphatase 98 U/L (46-116) C-Reactive Protein, Quantitative 0.5 mg/dL (0.00-0.90) Pro-B-Type Natriuretic Peptide 1575 pg/mL (0-125) H Total Protein 5.2 G/DL (6.4-8.2) L Albumin 2.0 G/DL (3.4-5.0) L Globulin 3.2 g/dL Albumin/Globulin Ratio 0.6 (1.0-2.7) L Current Medications Medications (Trade) Dose Ordered Sig/Melissa Route PRN Reason Start Time Stop Time Status Last Admin Dose Admin Allopurinol (allopurinoL) 300 mg DAILY ORAL 03/09/20 14:30 04/08/20 14:29 03/23/20 09:27 Budesonide (Pulmicort) 0.25 mg EVERY 12 HOURS HHN 03/06/20 21:00 06/04/20 20:59 03/23/20 09:44 Chlorhexidine Gluconate (Cherry-Hex 2%) 1 applic DAILY@1999 TOPIC 03/17/20 20:00 06/15/20 19:59 03/22/20 22:22 Chlorhexidine Gluconate (Cherry-Hex 2%) 1 applic DAILY@1999 TOPIC 03/10/20 21:45 06/08/20 21:44 03/22/20 22:21 Citalopram Hydrobromide (CeleXA) 20 mg DAILY ORAL 03/10/20 09:00 04/09/20 08:59 03/23/20 09:26 Clonidine HCl (Catapres Tab) 0.1 mg Q4H PRN ORAL SBP>170 03/06/20 16:15 06/04/20 16:14 Dextrose (Dextrose 50%) 25 ml Q30M PRN IV Hypoglycemia 03/13/20 16:30 06/11/20 16:29 Dextrose (Dextrose 50%) 50 ml Q30M PRN IV Hypoglycemia 03/13/20 16:30 06/11/20 16:29 Diphenhydramine HCl (Benadryl) 50 mg Q6H PRN ORAL Itching 03/06/20 19:00 04/05/20 18:59 03/22/20 22:22 Docusate Sodium (Colace) 100 mg THREE TIMES A DAY ORAL 03/08/20 13:00 04/07/20 12:59 03/23/20 09:26 Guaifenesin/ Dextromethorphan (Robitussin DM Syrup) 10 ml Q4H PRN ORAL For Cough 03/06/20 19:00 06/04/20 18:59 03/12/20 00:51 Heparin Sodium (Porcine) (Heparin 5000 units/ml) 5,000 units BID SUBQ 03/07/20 09:00 04/21/20 08:59 03/23/20 09:30 Hydralazine HCl (Apresoline) 50 mg Q8HR ORAL 03/11/20 14:00 06/04/20 17:59 03/23/20 05:57 Insulin Aspart (NovoLOG) BEFORE MEALS AND HS SUBQ 03/13/20 16:30 06/11/20 16:29 03/23/20 05:59 Insulin Aspart (NovoLOG) 9 units NOVOTIAC SUBQ 03/22/20 11:50 06/13/20 06:29 03/23/20 06:03 Insulin Detemir (Levemir) 12 units BID SUBQ 03/22/20 18:00 06/13/20 08:59 03/23/20 09:33 Levofloxacin (Levaquin) 750 mg Q48H ORAL 03/20/20 17:00 03/27/20 16:59 03/22/20 16:52 Lisinopril (ZestriL) 5 mg DAILY ORAL 03/17/20 09:00 04/16/20 08:59 03/23/20 09:27 Lorazepam (Ativan 2mg/ml 1ml) 1 mg Q4H PRN IV Agitation 03/19/20 22:15 03/26/20 22:14 Methylprednisolone Sodium Succinate (Solu-MEDROL) 40 mg EVERY 6 HOURS IVP 03/11/20 12:00 06/09/20 11:59 03/23/20 05:57 Pantoprazole (Protonix) 40 mg EVERY 12 HOURS ORAL 03/08/20 21:00 04/07/20 20:59 03/23/20 09:27 Phenol/Menthol (Chloraseptic) 1 spray TIDPRN PRN ORAL For Pain 03/06/20 19:00 06/04/20 18:59 Sevelamer Carbonate (Renvela) 1,600 mg THREE TIMES A DAY ORAL 03/09/20 09:00 06/07/20 08:59 03/23/20 09:26 Tamsulosin HCl (Flomax) 0.4 mg BID ORAL 03/08/20 11:30 04/07/20 11:29 03/23/20 09:27 Vitamin B Complex (Vitamin B Complex) 1 tab DAILY ORAL 03/07/20 09:00 06/05/20 08:59 03/23/20 09:27 Brett Pleitez MD Mar 23, 2020 11:57
--- NOTE | 2020-03-23 12:39 | Nephrology Progress Note ---
Assessment/Plan Problem List: (1) Renal failure (ARF), acute on chronic (2) Hypoxia (3) CHF (congestive heart failure) (4) COPD (chronic obstructive pulmonary disease) (5) HTN (hypertension) (6) Hyperkalemia Assessment Acute renal failure Possible underlying chronic kidney disease Hyperkalemia Respiratory failure: Combination of diastolic CHF, COPD, possible pneumonia Hypertension Diabetes mellitus Negative COVID-19 rapid test Plan March 23: Last dialysis yesterday. Labs reviewed. Medication list reviewed. Appears stable. Will check lab tomorrow. Dialysis as needed. Observe patient on tapering dose of oral steroids. March 22: Dialyzed this morning. Labs reviewed. Leukocytosis persists. Continue per consultants. March 21: Patient in [facility]. Dialyzed yesterday. Clinically improved. ABG improved. Labs and medication list improved. Will aim to dialyze again tomorrow. March 20: Patient in [facility]. Dialyzed today. On BiPAP now. ABG improved. Discussed with . Continue to optimize pulmonary status and monitor renal parameters and dialysis as needed. Discussed with RN. Leukocytosis worsened. Continue per ID advice March 19: Labs reviewed. Dialyzed yesterday. Leukocytosis worsened. Continue per ID. Patient encephalopathic. Attempt dialysis tomorrow. March 18: Labs reviewed. Patient has a tunneled catheter. Will dialyze today. Continue placement process for outpatient hemodialysis. Discussed with RN. March 17: Labs reviewed. Serum creatinine rising. Patient needs to be continue on dialysis. Regretfully he pulled out his femoral dialysis catheter. Discussed with RN. Patient need to be consented for placement of tunneled dialysis catheter for continued dialysis. If needed, psychiatric clearance regarding if the patient is mentally fit to make decisions. March 16: Last hemodialysis March 14. Clinically doing well. Serum creatinine rising. Today creatinine is 3.7. Will check labs tomorrow if further rise of creatinine will arrange for dialysis and placement of the catheter for the outpatient dialysis due to acute on chronic renal failure. March 15: Last HD 03/14. Doing well. continue to monitor renal parameters . Discussed with Dr Caceres. Continue to rest March 14: Dialyzed March 12. Serum creatinine today 4.2. Will do dialysis and ultrafiltration today. Continue per pulmonary. March 13: Dialyzed yesterday. Serum creatinine 3.8 unchanged. Continue per pulmonary. Hemodialysis as needed. Continue to monitor renal parameters. March 12: Due for dialysis today. Discussed with pulmonary, patient due for right pleural effusion tap today. Labs reviewed. Continue per current management. Continue to monitor renal parameters. March 11: Patient was dialyzed 2 days in a row with total of 7 L fluid removal. Today's ABG still suggestive of hypoxia. Patient uncooperative and does not keep the oxygen mask on. Labs reviewed. Renal parameters reasonable. Will attempt dialysis again tomorrow. Will discuss with Dr. Caceres with regard to possible initiation of steroid's, if underlying COPD is a major cause for the current pulmonary state. March 10: Patient was dialyzed yesterday. Over 3 L ultrafiltration done. Patient will be dialyzed again today with ultrafiltration. Continue to monitor pulmonary status. Discussed with . March 09: Seen this morning during hemodialysis. Patient has a femoral catheter for dialysis access. Aim to ultrafiltrate 3 to 4 L. Postdialysis will stop IV Lasix. We will continue to monitor urine output and renal parameters. Phos binders ordered. Per orders. Ultrasound results noted. Previously: Since diuretic treatment is not working, and the patient is volume overloaded and has difficulty breathing with lower extremity edema and possible ascites will aim to dialyze and do ultrafiltration. Adjust blood pressure medication. Kidney ultrasound, results noted Flomax twice daily Adjust the diet. Change to renal Pulmonary toilet Afterload preload reduction Avoid nephrotoxic's Subjective ROS Limited/Unobtainable: No Constitutional: Reports: malaise, weakness Objective Objective Last 24 Hour Vital Signs Date Time Temp Pulse Resp B/P (MAP) Pulse Ox O2 Delivery O2 Flow Rate FiO2 03/23/20 12:00 100.4 74 20 131/74 (93) 97 03/23/20 10:09 98.7 92 03/23/20 10:04 99 18 98 Nasal Cannula 2.0 28 97 18 97 03/23/20 10:04 97 Nasal Cannula 2.0 28 03/23/20 09:27 132/80 03/23/20 09:10 98.4 92 03/23/20 09:00 Nasal Cannula 2.0 03/23/20 08:40 98.6 95 03/23/20 08:10 98.5 98 03/23/20 08:00 98 03/23/20 08:00 98.5 88 18 138/77 (97) 98 11/17/20 07:40 Room Air 03/23/20 07:40 98.1 97 03/23/20 05:57 153/83 03/23/20 04:00 77 03/23/20 04:00 97.6 86 19 153/83 (106) 95 03/23/20 00:00 98.1 85 21 126/80 (95) 95 03/23/20 00:00 90 03/22/20 22:21 130/79 03/22/20 21:33 86 27 97 48 03/22/20 21:14 85 18 97 Nasal Cannula 2.0 28 82 18 96 03/22/20 21:00 Nasal Cannula 2.0 03/22/20 20:00 98.4 83 20 130/79 (96) 96 03/22/20 20:00 87 03/22/20 19:16 95 Nasal Cannula 2.0 28 03/22/20 16:00 77 03/22/20 16:00 96.9 79 20 107/63 (78) 98 03/22/20 14:24 126/76 Intake and Output 03/22/20 03/23/20 19:00 07:00 Intake Total 800 ml 640 ml Output Total 2000 ml 620 ml Balance -1200 ml 20 ml Intake Oral 800 ml 640 ml Output Urine Total 620 ml Hemodialysis UF 2000 ml # Voids 2 2 # Bowel Movements 2 1 Current Medications Medications (Trade) Dose Ordered Sig/Melissa Route PRN Reason Start Time Stop Time Status Last Admin Dose Admin Allopurinol (allopurinoL) 300 mg DAILY ORAL 03/09/20 14:30 04/08/20 14:29 03/23/20 09:27 Budesonide (Pulmicort) 0.25 mg EVERY 12 HOURS N 03/06/20 21:00 06/04/20 20:59 03/23/20 09:44 Chlorhexidine Gluconate (Cherry-Hex 2%) 1 applic DAILY@1999 TOPIC 03/17/20 20:00 06/15/20 19:59 03/22/20 22:22 Chlorhexidine Gluconate (Cherry-Hex 2%) 1 applic DAILY@1999 TOPIC 03/10/20 21:45 06/08/20 21:44 03/22/20 22:21 Citalopram Hydrobromide (CeleXA) 20 mg DAILY ORAL 03/10/20 09:00 04/09/20 08:59 03/23/20 09:26 Clonidine HCl (Catapres Tab) 0.1 mg Q4H PRN ORAL SBP>170 03/06/20 16:15 06/04/20 16:14 Dextrose (Dextrose 50%) 25 ml Q30M PRN IV Hypoglycemia 03/13/20 16:30 06/11/20 16:29 Dextrose (Dextrose 50%) 50 ml Q30M PRN IV Hypoglycemia 03/13/20 16:30 06/11/20 16:29 Diphenhydramine HCl (Benadryl) 50 mg Q6H PRN ORAL Itching 03/06/20 19:00 04/05/20 18:59 03/22/20 22:22 Docusate Sodium (Colace) 100 mg THREE TIMES A DAY ORAL 03/08/20 13:00 04/07/20 12:59 03/23/20 12:17 Guaifenesin/ Dextromethorphan (Robitussin DM Syrup) 10 ml Q4H PRN ORAL For Cough 03/06/20 19:00 06/04/20 18:59 03/12/20 00:51 Heparin Sodium (Porcine) (Heparin 5000 units/ml) 5,000 units BID SUBQ 03/07/20 09:00 04/21/20 08:59 03/23/20 09:30 Hydralazine HCl (Apresoline) 50 mg Q8HR ORAL 03/11/20 14:00 06/04/20 17:59 03/23/20 05:57 Insulin Aspart (NovoLOG) BEFORE MEALS AND HS SUBQ 03/13/20 16:30 06/11/20 16:29 03/23/20 12:19 Insulin Aspart (NovoLOG) 9 units NOVOTIAC SUBQ 03/22/20 11:50 06/13/20 06:29 03/23/20 12:20 Insulin Detemir (Levemir) 12 units BID SUBQ 03/22/20 18:00 06/13/20 08:59 03/23/20 09:33 Levofloxacin (Levaquin) 750 mg Q48H ORAL 03/20/20 17:00 03/27/20 16:59 03/22/20 16:52 Lisinopril (ZestriL) 5 mg DAILY ORAL 03/17/20 09:00 04/16/20 08:59 03/23/20 09:27 Lorazepam (Ativan 2mg/ml 1ml) 1 mg Q4H PRN IV Agitation 03/19/20 22:15 03/26/20 22:14 Methylprednisolone Sodium Succinate (Solu-MEDROL) 40 mg Q12H IVP 03/23/20 18:00 03/25/20 06:01 Pantoprazole (Protonix) 40 mg EVERY 12 HOURS ORAL 03/08/20 21:00 04/07/20 20:59 03/23/20 09:27 Phenol/Menthol (Chloraseptic) 1 spray TIDPRN PRN ORAL For Pain 03/06/20 19:00 06/04/20 18:59 Prednisone (predniSONE) 10 mg DAILY ORAL 03/29/20 09:00 03/29/20 09:01 Prednisone (predniSONE) 20 mg DAILY ORAL 03/28/20 09:00 03/28/20 09:01 Prednisone (predniSONE) 30 mg DAILY ORAL 03/27/20 09:00 03/27/20 09:01 Prednisone (predniSONE) 40 mg DAILY ORAL 03/26/20 09:00 03/26/20 09:01 Sevelamer Carbonate (Renvela) 1,600 mg THREE TIMES A DAY ORAL 03/09/20 09:00 06/07/20 08:59 03/23/20 12:17 Tamsulosin HCl (Flomax) 0.4 mg BID ORAL 03/08/20 11:30 04/07/20 11:29 03/23/20 09:27 Vitamin B Complex (Vitamin B Complex) 1 tab DAILY ORAL 03/07/20 09:00 06/05/20 08:59 03/23/20 09:27 Laboratory Tests 03/22/20 16:16: POC Whole Blood Glucose [Pending] 03/22/20 20:59: POC Whole Blood Glucose 264H 03/23/20 05:37: POC Whole Blood Glucose 200H 03/23/20 05:40: White Blood Count 17.1H, Red Blood Count 4.17L, Hemoglobin 11.4L, Hematocrit 36.3L, Mean Corpuscular Volume 87, Mean Corpuscular Hemoglobin 27.4, Mean Corpuscular Hemoglobin Concent 31.5L, Red Cell Distribution Width 13.6, Platelet Count 193, Mean Platelet Volume 10.3H, Neutrophils (%) (Auto) , Lymphocytes (%) (Auto) , Monocytes (%) (Auto) , Eosinophils (%) (Auto) , Basophils (%) (Auto) , Differential Total Cells Counted 100, Neutrophils % (Manual) 94H, Lymphocytes % (Manual) 4L, Monocytes % (Manual) 2, Eosinophils % (Manual) 0, Basophils % (Manual) 0, Band Neutrophils 0, Platelet Estimate Adequate, Platelet Morphology Normal, Hypochromasia 1+, Sodium Level 134L, Potassium Level 4.9, Chloride Level 100, Carbon Dioxide Level 27, Anion Gap 7, Blood Urea Nitrogen 70H, Creatinine 3.5H, Estimat Glomerular Filtration Rate 21.2, Glucose Level 209H, Calcium Level 7.8L, Phosphorus Level 3.4, Magnesium Level 2.2, Total Bilirubin 0.3, Aspartate Amino Transf (AST/SGOT) 15, Alanine Aminotransferase (ALT/SGPT) 30, Alkaline Phosphatase 98, C-Reactive Protein, Quantitative 0.5, Pro-B-Type Natriuretic Peptide 1575H, Total Protein 5.2L, Albumin 2.0L, Globulin 3.2, Albumin/Globulin Ratio 0.6L Height (Feet): 5 Height (Inches): 9.00 Weight (Pounds): 228 General Appearance: no apparent distress Cardiovascular: normal rate Respiratory/Chest: decreased breath sounds Abdomen: distended Rene Singh MD Mar 23, 2020 12:39
[2020-03-23] MEDS ORDERED: Solu-MEDROL 40mg Inj IVP SCH ×2 (12:45→18:00)
--- NOTE | 2020-03-23 12:46 | NUR ---
RADIOLOGY DEPT., CHEST X-RAY DONE.-P.DYE
--- NOTE | 2020-03-23 13:58 | NUR ---
NURSE NOTES: Pt received from susanne TAMAYO. pt in bed resting stable. bed low and locked, call light within reach. pt status post fall will continue monitoring vitals.
--- NOTE | 2020-03-23 15:18 | NUR ---
NURSE NOTES: Spoke to Dr Landon with new order for STAT CT head no contrast d/t s/p fall.
--- NOTE | 2020-03-23 17:53 | General Progress Note ---
Subjective ROS Limited/Unobtainable: Yes Allergies: Coded Allergies: PENICILLINS (Verified Allergy, Unknown, 03/06/20) Uncoded Allergies: SEAFOOD (Allergy, Unknown, 03/06/20) Subjective events noted glucose values are elevated but not longer on IVSM - on Prednisone taper Item Value Date Time Bedside Blood Glucose 237 mg/dl H 03/23/20 1646 Bedside Blood Glucose 309 mg/dl H 03/23/20 1220 Bedside Blood Glucose 200 mg/dl H 03/23/20 0933 Bedside Blood Glucose 200 mg/dl H 03/23/20 0630 Bedside Blood Glucose 269 mg/dl H 03/22/20 2225 Bedside Blood Glucose 157 mg/dl H 03/22/20 1725 Bedside Blood Glucose 150 mg/dl H 03/22/20 1228 Objective Last 24 Hour Vital Signs Date Time Temp Pulse Resp B/P (MAP) Pulse Ox O2 Delivery O2 Flow Rate FiO2 03/23/20 16:00 97.8 75 18 132/65 (87) 95 03/23/20 16:00 96 03/23/20 14:39 129/64 03/23/20 13:10 97.7 95 03/23/20 12:10 98.8 95 03/23/20 12:00 83 03/23/20 12:00 97.6 69 18 140/72 (94) 96 03/23/20 11:10 98.3 94 03/23/20 10:09 98.7 92 03/23/20 10:04 99 18 98 Nasal Cannula 2.0 28 97 18 97 03/23/20 10:04 97 Nasal Cannula 2.0 28 03/23/20 09:27 132/80 03/23/20 09:10 98.4 92 03/23/20 09:00 Nasal Cannula 2.0 03/23/20 08:40 98.6 95 03/23/20 08:10 98.5 98 03/23/20 08:00 98 03/23/20 08:00 98.5 88 18 138/77 (97) 98 03/23/20 07:40 Room Air 03/23/20 07:40 98.1 97 03/23/20 05:57 153/83 03/23/20 04:00 77 03/23/20 04:00 97.6 86 19 153/83 (106) 95 03/23/20 00:00 98.1 85 21 126/80 (95) 95 03/23/20 00:00 90 03/22/20 22:21 130/79 03/22/20 21:33 86 27 97 48 03/22/20 21:14 85 18 97 Nasal Cannula 2.0 28 82 18 96 03/22/20 21:00 Nasal Cannula 2.0 03/22/20 20:00 98.4 83 20 130/79 (96) 96 03/22/20 20:00 87 03/22/20 19:16 95 Nasal Cannula 2.0 28 Intake and Output 03/22/20 03/23/20 19:00 07:00 Intake Total 800 ml 640 ml Output Total 2000 ml 620 ml Balance -1200 ml 20 ml Intake Oral 800 ml 640 ml Output Urine Total 620 ml Hemodialysis UF 2000 ml # Voids 2 2 # Bowel Movements 2 1 Laboratory Tests 03/22/20 20:59: POC Whole Blood Glucose 264H 03/23/20 05:37: POC Whole Blood Glucose 200H 03/23/20 05:40: White Blood Count 17.1H, Red Blood Count 4.17L, Hemoglobin 11.4L, Hematocrit 36.3L, Mean Corpuscular Volume 87, Mean Corpuscular Hemoglobin 27.4, Mean Corpuscular Hemoglobin Concent 31.5L, Red Cell Distribution Width 13.6, Platelet Count 193, Mean Platelet Volume 10.3H, Neutrophils (%) (Auto) , Lymphocytes (%) (Auto) , Monocytes (%) (Auto) , Eosinophils (%) (Auto) , Basophils (%) (Auto) , Differential Total Cells Counted 100, Neutrophils % (Manual) 94H, Lymphocytes % (Manual) 4L, Monocytes % (Manual) 2, Eosinophils % (Manual) 0, Basophils % (Manual) 0, Band Neutrophils 0, Platelet Estimate Adequate, Platelet Morphology Normal, Hypochromasia 1+, Sodium Level 134L, Potassium Level 4.9, Chloride Level 100, Carbon Dioxide Level 27, Anion Gap 7, Blood Urea Nitrogen 70H, Creatinine 3.5H, Estimat Glomerular Filtration Rate 21.2, Glucose Level 209H, Calcium Level 7.8L, Phosphorus Level 3.4, Magnesium Level 2.2, Total Bilirubin 0.3, Aspartate Amino Transf (AST/SGOT) 15, Alanine Aminotransferase (ALT/SGPT) 30, Alkaline Phosphatase 98, C-Reactive Protein, Quantitative 0.5, Pro-B-Type Natriuretic Peptide 1575H, Total Protein 5.2L, Albumin 2.0L, Globulin 3.2, Albumin/Globulin Ratio 0.6L Height (Feet): 5 Height (Inches): 9.00 Weight (Pounds): 228 General Appearance: no apparent distress Neck: normal alignment Cardiovascular: normal rate Respiratory/Chest: decreased breath sounds Abdomen: normal bowel sounds Objective Current Medications Medications (Trade) Dose Ordered Sig/Melissa Route PRN Reason Start Time Stop Time Status Last Admin Dose Admin Allopurinol (allopurinoL) 300 mg DAILY ORAL 03/09/20 14:30 04/08/20 14:29 03/23/20 09:27 Budesonide (Pulmicort) 0.25 mg EVERY 12 HOURS HHN 03/06/20 21:00 06/04/20 20:59 03/23/20 09:44 Chlorhexidine Gluconate (Cherry-Hex 2%) 1 applic DAILY@1999 TOPIC 03/17/20 20:00 06/15/20 19:59 03/22/20 22:22 Chlorhexidine Gluconate (Cherry-Hex 2%) 1 applic DAILY@1999 TOPIC 03/10/20 21:45 06/08/20 21:44 03/22/20 22:21 Citalopram Hydrobromide (CeleXA) 20 mg DAILY ORAL 03/10/20 09:00 04/09/20 08:59 03/23/20 09:26 Clonidine HCl (Catapres Tab) 0.1 mg Q4H PRN ORAL SBP>170 03/06/20 16:15 06/04/20 16:14 Dextrose (Dextrose 50%) 25 ml Q30M PRN IV Hypoglycemia 03/13/20 16:30 06/11/20 16:29 Dextrose (Dextrose 50%) 50 ml Q30M PRN IV Hypoglycemia 03/13/20 16:30 06/11/20 16:29 Diphenhydramine HCl (Benadryl) 50 mg Q6H PRN ORAL Itching 03/06/20 19:00 04/05/20 18:59 03/22/20 22:22 Docusate Sodium (Colace) 100 mg THREE TIMES A DAY ORAL 03/08/20 13:00 04/07/20 12:59 03/23/20 12:17 Guaifenesin/ Dextromethorphan (Robitussin DM Syrup) 10 ml Q4H PRN ORAL For Cough 03/06/20 19:00 06/04/20 18:59 03/12/20 00:51 Heparin Sodium (Porcine) (Heparin 5000 units/ml) 5,000 units BID SUBQ 03/07/20 09:00 04/21/20 08:59 03/23/20 09:30 Hydralazine HCl (Apresoline) 50 mg Q8HR ORAL 03/11/20 14:00 06/04/20 17:59 03/23/20 14:39 Insulin Aspart (NovoLOG) BEFORE MEALS AND HS SUBQ 03/13/20 16:30 06/11/20 16:29 03/23/20 16:46 Insulin Aspart (NovoLOG) 9 units NOVOTIAC SUBQ 03/22/20 11:50 06/13/20 06:29 03/23/20 16:46 Insulin Detemir (Levemir) 12 units BID SUBQ 03/22/20 18:00 06/13/20 08:59 03/23/20 09:33 Levofloxacin (Levaquin) 750 mg Q48H ORAL 03/20/20 17:00 03/27/20 16:59 03/22/20 16:52 Lisinopril (ZestriL) 5 mg DAILY ORAL 03/17/20 09:00 04/16/20 08:59 03/23/20 09:27 Lorazepam (Ativan 2mg/ml 1ml) 1 mg Q4H PRN IV Agitation 03/19/20 22:15 03/26/20 22:14 Methylprednisolone Sodium Succinate (Solu-MEDROL) 40 mg Q12H IVP 03/23/20 18:00 03/25/20 06:01 Pantoprazole (Protonix) 40 mg EVERY 12 HOURS ORAL 03/08/20 21:00 04/07/20 20:59 03/23/20 09:27 Phenol/Menthol (Chloraseptic) 1 spray TIDPRN PRN ORAL For Pain 03/06/20 19:00 06/04/20 18:59 Prednisone (predniSONE) 10 mg DAILY ORAL 03/29/20 09:00 03/29/20 09:01 Prednisone (predniSONE) 20 mg DAILY ORAL 03/28/20 09:00 03/28/20 09:01 Prednisone (predniSONE) 30 mg DAILY ORAL 03/27/20 09:00 03/27/20 09:01 Prednisone (predniSONE) 40 mg DAILY ORAL 03/26/20 09:00 03/26/20 09:01 Sevelamer Carbonate (Renvela) 1,600 mg THREE TIMES A DAY ORAL 03/09/20 09:00 06/07/20 08:59 03/23/20 12:17 Tamsulosin HCl (Flomax) 0.4 mg BID ORAL 03/08/20 11:30 04/07/20 11:29 03/23/20 09:27 Vitamin B Complex (Vitamin B Complex) 1 tab DAILY ORAL 03/07/20 09:00 06/05/20 08:59 03/23/20 09:27 Assessment/Plan Problem List: (1) Hyperglycemia ICD Codes: R73.9 - Hyperglycemia, unspecified SNOMED: 21871497 (2) COPD (chronic obstructive pulmonary disease) ICD Codes: J44.9 - Chronic obstructive pulmonary disease, unspecified SNOMED: 50533076 Qualifiers: Qualified Codes: J44.1 - Chronic obstructive pulmonary disease with (acute) exacerbation (3) CHF (congestive heart failure) ICD Codes: I50.9 - Heart failure, unspecified SNOMED: 39119222 Qualifiers: Qualified Codes: I50.9 - Heart failure, unspecified (4) Hypoxia ICD Codes: R09.02 - Hypoxemia SNOMED: 415748012 (5) Renal failure (ARF), acute on chronic ICD Codes: N17.9 - Acute kidney failure, unspecified; N18.9 - Chronic kidney disease, unspecified SNOMED: 131747980 Qualifiers: Qualified Codes: N17.9 - Acute kidney failure, unspecified; N18.4 - Chronic kidney disease, stage 4 (severe) (6) HTN (hypertension) ICD Codes: I10 - Essential (primary) hypertension SNOMED: 40259286 Status: progressing Assessment/Plan: continue Levemir 12 units bid continue Novolog 9 units ac tid continue SSI John Taylor MD Mar 23, 2020 17:53
--- NOTE | 2020-03-23 18:11 | Diagnostic Imaging Report ---
EXAM: CT Head Without Intravenous Contrast CLINICAL HISTORY: FALL TECHNIQUE: Axial computed tomography images of the head/brain without intravenous contrast. CTDI is 53.4 mGy and DLP is 992.1 mGy-cm. One or more of the following dose reduction techniques were used: automated exposure control, adjustment of the mA and/or kV according to patient size, use of iterative reconstruction technique. COMPARISON: No previous study. FINDINGS: Brain: No abnormal extra-axial collection. No hemorrhage. Midline shift: No midline shift or mass-effect. Ventricles: There is prominence of the ventricular system, cortical sulci, basilar cisterns, compatible with age related atrophy. Bones/joints: Calvarium is within normal limits. No acute fracture. Soft tissues: Unremarkable. Sinuses: Visualized sinuses are unremarkable. Mastoid air cells: Mastoid air cells are well pneumatized. IMPRESSION: 1. Age-related changes. 2. No acute intracranial pathology. 3. If there is concern for etiology such as early acute lacunar infarcts, magnetic resonance imaging of the brain with diffusion-weighted sequences should be performed.
--- NOTE | 2020-03-23 19:10 | NUR ---
NURSE NOTES: pt report received from renei RN. pt is alert and oriented times 4, able to follow simple commands. no acute neuro distress noted. pt is on 3 L NC, no acute signs symptoms of acute resp distress noted, pt is sating 99% O2. pt is in lunchroom monitor showing SR, no acute cardiac abnormalities noted. pt bed is low, locked, armed, call light within reach, bed rails up times 3. will follow plan of care.
--- NOTE | 2020-03-23 19:31 | NUR ---
NURSE HAND-OFF REPORT: Important Events on Shift:[Pt status post fall this morning at 7:30 am, post fall protocol endorsed. 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 ] Patient Status: [in bed awake and stable] Diet: [renal] Pending Orders: [] Pending Results/Labs:[] Pending MD notification:[] Latest Vital Signs: Temperature 97.8 , Pulse 75 , B/P 132 /65 , Respiratory Rate 18 , O2 SAT 95 , Nasal Cannula, O2 Flow Rate 2.0 . Vital Sign Comment: [] EKG Rhythm: Sinus Rhythm Rhythm change?: N MD Notified?: N - MD Response: Latest Ryan Fall Score: 60 Fall Risk: High Risk Safety Measures: Call light Within Reach, Bed Alarm Zone 3, Side Rails Side Rails x3, Bed position Low and Locked. Fall Precautions: Yellow Socks Yellow Gown Door Sign Patient Fall Education Report given to [Lino RN].
[2020-03-23] MEDS: Dyna-Hex 2% Top Sol 2oz TOPIC SCH ×2 (20:00→21:20)
--- NOTE | 2020-03-23 20:22 | Psychiatric Progress Note ---
Psychiatry Progress Note Psychiatry Progress Note Subjective the pt is having anxiety and irritable unstable gait he fell today. sleep is adequate Medications Current Medications Medications (Trade) Dose Ordered Sig/Melissa Route PRN Reason Start Time Stop Time Status Last Admin Dose Admin Allopurinol (allopurinoL) 300 mg DAILY ORAL 03/09/20 14:30 04/08/20 14:29 03/23/20 09:27 Budesonide (Pulmicort) 0.25 mg EVERY 12 HOURS HHN 03/06/20 21:00 06/04/20 20:59 03/23/20 09:44 Chlorhexidine Gluconate (Cherry-Hex 2%) 1 applic DAILY@1999 TOPIC 03/17/20 20:00 06/15/20 19:59 03/22/20 22:22 Chlorhexidine Gluconate (Cherry-Hex 2%) 1 applic DAILY@1999 TOPIC 03/10/20 21:45 06/08/20 21:44 03/22/20 22:21 Citalopram Hydrobromide (CeleXA) 20 mg DAILY ORAL 03/10/20 09:00 04/09/20 08:59 03/23/20 09:26 Clonidine HCl (Catapres Tab) 0.1 mg Q4H PRN ORAL SBP>170 03/06/20 16:15 06/04/20 16:14 Dextrose (Dextrose 50%) 25 ml Q30M PRN IV Hypoglycemia 03/13/20 16:30 06/11/20 16:29 Dextrose (Dextrose 50%) 50 ml Q30M PRN IV Hypoglycemia 03/13/20 16:30 06/11/20 16:29 Diphenhydramine HCl (Benadryl) 50 mg Q6H PRN ORAL Itching 03/06/20 19:00 04/05/20 18:59 03/22/20 22:22 Docusate Sodium (Colace) 100 mg THREE TIMES A DAY ORAL 03/08/20 13:00 04/07/20 12:59 03/23/20 18:33 Guaifenesin/ Dextromethorphan (Robitussin DM Syrup) 10 ml Q4H PRN ORAL For Cough 03/06/20 19:00 06/04/20 18:59 03/12/20 00:51 Heparin Sodium (Porcine) (Heparin 5000 units/ml) 5,000 units BID SUBQ 03/07/20 09:00 04/21/20 08:59 03/23/20 18:34 Hydralazine HCl (Apresoline) 50 mg Q8HR ORAL 03/11/20 14:00 06/04/20 17:59 03/23/20 14:39 Insulin Aspart (NovoLOG) BEFORE MEALS AND HS SUBQ 03/13/20 16:30 06/11/20 16:29 03/23/20 16:46 Insulin Aspart (NovoLOG) 9 units NOVOTIAC SUBQ 03/22/20 11:50 06/13/20 06:29 03/23/20 16:46 Insulin Detemir (Levemir) 12 units BID SUBQ 03/22/20 18:00 06/13/20 08:59 03/23/20 18:35 Levofloxacin (Levaquin) 750 mg Q48H ORAL 03/20/20 17:00 03/27/20 16:59 03/22/20 16:52 Lisinopril (ZestriL) 5 mg DAILY ORAL 03/17/20 09:00 04/16/20 08:59 03/23/20 09:27 Lorazepam (Ativan 2mg/ml 1ml) 1 mg Q4H PRN IV Agitation 03/19/20 22:15 03/26/20 22:14 Methylprednisolone Sodium Succinate (Solu-MEDROL) 40 mg Q12H IVP 03/23/20 18:00 03/25/20 06:01 03/23/20 18:40 Pantoprazole (Protonix) 40 mg EVERY 12 HOURS ORAL 03/08/20 21:00 04/07/20 20:59 03/23/20 09:27 Phenol/Menthol (Chloraseptic) 1 spray TIDPRN PRN ORAL For Pain 03/06/20 19:00 06/04/20 18:59 Prednisone (predniSONE) 10 mg DAILY ORAL 03/29/20 09:00 03/29/20 09:01 Prednisone (predniSONE) 20 mg DAILY ORAL 03/28/20 09:00 03/28/20 09:01 Prednisone (predniSONE) 30 mg DAILY ORAL 03/27/20 09:00 03/27/20 09:01 Prednisone (predniSONE) 40 mg DAILY ORAL 03/26/20 09:00 03/26/20 09:01 Sevelamer Carbonate (Renvela) 1,600 mg THREE TIMES A DAY ORAL 03/09/20 09:00 06/07/20 08:59 03/23/20 18:41 Tamsulosin HCl (Flomax) 0.4 mg BID ORAL 03/08/20 11:30 04/07/20 11:29 03/23/20 18:33 Vitamin B Complex (Vitamin B Complex) 1 tab DAILY ORAL 03/07/20 09:00 06/05/20 08:59 03/23/20 09:27 Neurological/Psychiatric: Reports: anxiety, depressed, emotional problems Allergies: Coded Allergies: PENICILLINS (Verified Allergy, Unknown, 03/06/20) Uncoded Allergies: SEAFOOD (Allergy, Unknown, 03/06/20) Objective Data Height (Feet): 5 Height (Inches): 9.00 Weight (Pounds): 228 General Appearance: no apparent distress Mental Status Exam - Mood: anxious Additional Comments: alert and oriented times self, place, and situation. Mood is anxious. Affect is blunted, congruent with mood. Thought process is linear and goal oriented. Thought content, no suicidal or homicidal ideation. Cognition is intact. Insight and judgment is fair. Assessment/Plan Towson I: ASSESSMENT: Towson I Anxiety disorder. Towson II Deferred. Towson III As above. Towson IV Low. Towson V 50. PLAN: 1. We will start the patient on Celexa 20 mg in the morning. 2. Ativan as needed. 3. Provide the patient with reality orientation, supportive therapy, and medication. 4. the pt has capacity to make decisions Status: progressing Status Narrative ASSESSMENT: Towson I Anxiety disorder. Towson II Deferred. Towson III As above. Towson IV Low. Towson V 50. PLAN: 1. We will start the patient on Celexa 20 mg in the morning. 2. Ativan as needed. 3. Provide the patient with reality orientation, supportive therapy, and medication. 4. the pt has capacity to make decisions Assessment/Plan: ASSESSMENT: Towson I Anxiety disorder. Towson II Deferred. Towson III As above. Towson IV Low. Towson V 50. PLAN: 1. We will start the patient on Celexa 20 mg in the morning. 2. Ativan as needed. 3. Provide the patient with reality orientation, supportive therapy, and medication. 4. the pt has capacity to make decisions Kwasi Diaz MD Mar 23, 2020 20:22
--- NOTE | 2020-03-23 21:03 | General Progress Note ---
Subjective ROS Limited/Unobtainable: Yes Allergies: Coded Allergies: PENICILLINS (Verified Allergy, Unknown, 03/06/20) Uncoded Allergies: SEAFOOD (Allergy, Unknown, 03/06/20) Objective Last 24 Hour Vital Signs Date Time Temp Pulse Resp B/P (MAP) Pulse Ox O2 Delivery O2 Flow Rate FiO2 03/23/20 19:50 95 Nasal Cannula 2.0 28 03/23/20 17:10 97.8 95 03/23/20 16:00 97.8 75 18 132/65 (87) 95 03/23/20 16:00 96 03/23/20 14:39 129/64 03/23/20 13:10 97.7 95 03/23/20 12:10 98.8 95 03/23/20 12:00 83 03/23/20 12:00 97.6 69 18 140/72 (94) 96 03/23/20 11:10 98.3 94 03/23/20 10:09 98.7 92 03/23/20 10:04 99 18 98 Nasal Cannula 2.0 28 97 18 97 03/23/20 10:04 97 Nasal Cannula 2.0 28 03/23/20 09:27 132/80 03/23/20 09:10 98.4 92 03/23/20 09:00 Nasal Cannula 2.0 03/23/20 08:40 98.6 95 03/23/20 08:10 98.5 98 03/23/20 08:00 98 03/23/20 08:00 98.5 88 18 138/77 (97) 98 03/23/20 07:40 Room Air 03/23/20 07:40 98.1 97 03/23/20 05:57 153/83 03/23/20 04:00 77 03/23/20 04:00 97.6 86 19 153/83 (106) 95 03/23/20 00:00 98.1 85 21 126/80 (95) 95 03/23/20 00:00 90 03/22/20 22:21 130/79 03/22/20 21:33 86 27 97 48 03/22/20 21:14 85 18 97 Nasal Cannula 2.0 28 82 18 96 Intake and Output 03/22/20 03/23/20 19:00 07:00 Intake Total 800 ml 640 ml Output Total 2000 ml 620 ml Balance -1200 ml 20 ml Intake Oral 800 ml 640 ml Output Urine Total 620 ml Hemodialysis UF 2000 ml # Voids 2 2 # Bowel Movements 2 1 Laboratory Tests 03/23/20 05:37: POC Whole Blood Glucose 200H 03/23/20 05:40: White Blood Count 17.1H, Red Blood Count 4.17L, Hemoglobin 11.4L, Hematocrit 36.3L, Mean Corpuscular Volume 87, Mean Corpuscular Hemoglobin 27.4, Mean Corpuscular Hemoglobin Concent 31.5L, Red Cell Distribution Width 13.6, Platelet Count 193, Mean Platelet Volume 10.3H, Neutrophils (%) (Auto) , Lymphocytes (%) (Auto) , Monocytes (%) (Auto) , Eosinophils (%) (Auto) , Basophils (%) (Auto) , Differential Total Cells Counted 100, Neutrophils % (Manual) 94H, Lymphocytes % (Manual) 4L, Monocytes % (Manual) 2, Eosinophils % (Manual) 0, Basophils % (Manual) 0, Band Neutrophils 0, Platelet Estimate Adequate, Platelet Morphology Normal, Hypochromasia 1+, Sodium Level 134L, Potassium Level 4.9, Chloride Level 100, Carbon Dioxide Level 27, Anion Gap 7, Blood Urea Nitrogen 70H, Creatinine 3.5H, Estimat Glomerular Filtration Rate 21.2, Glucose Level 209H, Calcium Level 7.8L, Phosphorus Level 3.4, Magnesium Level 2.2, Total Bilirubin 0.3, Aspartate Amino Transf (AST/SGOT) 15, Alanine Aminotransferase (ALT/SGPT) 30, Alkaline Phosphatase 98, C-Reactive Protein, Quantitative 0.5, Pro-B-Type Natriuretic Peptide 1575H, Total Protein 5.2L, Albumin 2.0L, Globulin 3.2, Albumin/Globulin Ratio 0.6L Height (Feet): 5 Height (Inches): 9.00 Weight (Pounds): 228 Assessment/Plan Problem List: (1) COPD (chronic obstructive pulmonary disease) ICD Codes: J44.9 - Chronic obstructive pulmonary disease, unspecified SNOMED: 77237035 Qualifiers: Qualified Codes: J44.1 - Chronic obstructive pulmonary disease with (acute) exacerbation (2) CHF (congestive heart failure) ICD Codes: I50.9 - Heart failure, unspecified SNOMED: 14986228 Qualifiers: Qualified Codes: I50.9 - Heart failure, unspecified (3) Hypoxia ICD Codes: R09.02 - Hypoxemia SNOMED: 416011915 (4) Renal failure (ARF), acute on chronic ICD Codes: N17.9 - Acute kidney failure, unspecified; N18.9 - Chronic kidney disease, unspecified SNOMED: 511745381 Qualifiers: Qualified Codes: N17.9 - Acute kidney failure, unspecified; N18.4 - Chronic kidney disease, stage 4 (severe) Status: progressing Assessment/Plan: oxygen level is improving more alert afebrile no wheezing copd improving chf exacerbation improving John Chavez MD Mar 23, 2020 21:03
--- NOTE | 2020-03-23 22:10 | NUR ---
NURSE NOTES: adjusted pts Nasal canula. pt is sating 99% O2, resp at 20. no signs symptoms of resp distress.
[2020-03-24] VITALS (10 sets, daily range): BP systolic 104–140; BP diastolic 57–81
--- NOTE | 2020-03-24 00:30 | NUR ---
NURSE NOTES: assessed pt. O2 sat 98% resp 20 per min. nasal canula showing 2L. no resp distress noted.
--- NOTE | 2020-03-24 03:00 | NUR ---
NURSE NOTES: 2 staff member assist pt to bathroom. times 1 BM noted. normal brown stool. pt returned to bed. bed is armed, locked, low, bed rails up times 3. call light within reach.
--- NOTE | 2020-03-24 05:03 | NUR ---
NURSE NOTES: pt resting in bed. bed armed. bed rails up times 3. call light within reach. WINE PASTE[employer]ER sitting in front of pts room for monitoring.
[2020-03-24] MEDS: HydrALAZINE 50mg tab ORAL SCH ×3 (06:00→22:00)
[2020-03-24] MEDS: Solu-MEDROL 40mg Inj IVP SCH ×2 (06:00→18:23)
[2020-03-24] MEDS: NovoLOG Insulin Flexpen SUBQ SCH ×7 (06:02→21:00)
--- NOTE | 2020-03-24 06:24 | General Progress Note ---
Subjective Allergies: Coded Allergies: PENICILLINS (Verified Allergy, Unknown, 03/06/20) Uncoded Allergies: SEAFOOD (Allergy, Unknown, 03/06/20) All Systems: reviewed and negative except above Subjective events noted glucose values in 200 range Item Value Date Time Bedside Blood Glucose 269 mg/dl H 03/24/20 0604 Bedside Blood Glucose 293 mg/dl H 03/23/20 2119 Bedside Blood Glucose 237 mg/dl H 03/23/20 1835 Bedside Blood Glucose 309 mg/dl H 03/23/20 1220 Bedside Blood Glucose 200 mg/dl H 03/23/20 0933 Bedside Blood Glucose 200 mg/dl H 03/23/20 0630 Objective Last 24 Hour Vital Signs Date Time Temp Pulse Resp B/P (MAP) Pulse Ox O2 Delivery O2 Flow Rate FiO2 03/24/20 06:00 132/74 03/24/20 04:00 98.1 82 18 135/78 (97) 98 03/24/20 04:00 83 03/24/20 00:00 94 03/24/20 00:00 99.3 94 18 128/68 (88) 98 03/23/20 23:00 98.2 98 03/23/20 21:17 115/63 03/23/20 21:00 Nasal Cannula 2.0 03/23/20 20:00 98.1 93 18 115/63 (80) 97 03/23/20 20:00 89 03/23/20 19:50 95 Nasal Cannula 2.0 28 03/23/20 19:00 97.2 97 03/23/20 17:10 97.8 95 03/23/20 16:00 97.8 75 18 132/65 (87) 95 03/23/20 16:00 96 03/23/20 14:39 129/64 03/23/20 13:10 97.7 95 03/23/20 12:10 98.8 95 03/23/20 12:00 83 03/23/20 12:00 97.6 69 18 140/72 (94) 96 03/23/20 11:10 98.3 94 03/23/20 10:09 98.7 92 03/23/20 10:04 99 18 98 Nasal Cannula 2.0 28 97 18 97 03/23/20 10:04 97 Nasal Cannula 2.0 28 03/23/20 09:27 132/80 11/17/20 09:10 98.4 92 03/23/20 09:00 Nasal Cannula 2.0 03/23/20 08:40 98.6 95 03/23/20 08:10 98.5 98 03/23/20 08:00 98 03/23/20 08:00 98.5 88 18 138/77 (97) 98 03/23/20 07:40 Room Air 03/23/20 07:40 98.1 97 Intake and Output 03/23/20 03/24/20 19:00 07:00 Intake Total 140 ml Output Total 1200 ml Balance -1060 ml Intake Oral 140 ml Output Urine Total 1200 ml # Voids 3 Height (Feet): 5 Height (Inches): 9.00 Weight (Pounds): 228 General Appearance: no apparent distress Neck: normal alignment Cardiovascular: normal rate Respiratory/Chest: decreased breath sounds Abdomen: normal bowel sounds Pelvis: normal external exam Objective Current Medications Medications (Trade) Dose Ordered Sig/Melissa Route PRN Reason Start Time Stop Time Status Last Admin Dose Admin Allopurinol (allopurinoL) 300 mg DAILY ORAL 03/09/20 14:30 04/08/20 14:29 03/23/20 09:27 Budesonide (Pulmicort) 0.25 mg EVERY 12 HOURS HHN 03/06/20 21:00 06/04/20 20:59 03/23/20 09:44 Chlorhexidine Gluconate (Cherry-Hex 2%) 1 applic DAILY@1999 TOPIC 03/17/20 20:00 06/15/20 19:59 03/23/20 21:20 Chlorhexidine Gluconate (Cherry-Hex 2%) 1 applic DAILY@1999 TOPIC 03/10/20 21:45 06/08/20 21:44 03/22/20 22:21 Citalopram Hydrobromide (CeleXA) 20 mg DAILY ORAL 03/10/20 09:00 04/09/20 08:59 03/23/20 09:26 Clonidine HCl (Catapres Tab) 0.1 mg Q4H PRN ORAL SBP>170 03/06/20 16:15 06/04/20 16:14 Dextrose (Dextrose 50%) 25 ml Q30M PRN IV Hypoglycemia 03/13/20 16:30 06/11/20 16:29 Dextrose (Dextrose 50%) 50 ml Q30M PRN IV Hypoglycemia 03/13/20 16:30 06/11/20 16:29 Diphenhydramine HCl (Benadryl) 50 mg Q6H PRN ORAL Itching 03/06/20 19:00 04/05/20 18:59 03/22/20 22:22 Docusate Sodium (Colace) 100 mg THREE TIMES A DAY ORAL 03/08/20 13:00 04/07/20 12:59 03/23/20 18:33 Guaifenesin/ Dextromethorphan (Robitussin DM Syrup) 10 ml Q4H PRN ORAL For Cough 03/06/20 19:00 06/04/20 18:59 03/12/20 00:51 Heparin Sodium (Porcine) (Heparin 5000 units/ml) 5,000 units BID SUBQ 03/07/20 09:00 04/21/20 08:59 03/23/20 18:34 Hydralazine HCl (Apresoline) 50 mg Q8HR ORAL 03/11/20 14:00 06/04/20 17:59 03/24/20 06:00 Insulin Aspart (NovoLOG) BEFORE MEALS AND HS SUBQ 03/13/20 16:30 06/11/20 16:29 03/24/20 06:02 Insulin Aspart (NovoLOG) 9 units NOVOTIAC SUBQ 03/22/20 11:50 06/13/20 06:29 03/24/20 06:04 Insulin Detemir (Levemir) 12 units BID SUBQ 03/22/20 18:00 06/13/20 08:59 03/23/20 18:35 Levofloxacin (Levaquin) 750 mg Q48H ORAL 03/20/20 17:00 03/27/20 16:59 03/22/20 16:52 Lisinopril (ZestriL) 5 mg DAILY ORAL 03/17/20 09:00 04/16/20 08:59 03/23/20 09:27 Lorazepam (Ativan 2mg/ml 1ml) 1 mg Q4H PRN IV Agitation 03/19/20 22:15 03/26/20 22:14 Methylprednisolone Sodium Succinate (Solu-MEDROL) 40 mg Q12H IVP 03/23/20 18:00 03/25/20 06:01 03/24/20 06:00 Pantoprazole (Protonix) 40 mg EVERY 12 HOURS ORAL 03/08/20 21:00 04/07/20 20:59 03/23/20 21:17 Phenol/Menthol (Chloraseptic) 1 spray TIDPRN PRN ORAL For Pain 03/06/20 19:00 06/04/20 18:59 Prednisone (predniSONE) 10 mg DAILY ORAL 03/29/20 09:00 03/29/20 09:01 Prednisone (predniSONE) 20 mg DAILY ORAL 03/28/20 09:00 03/28/20 09:01 Prednisone (predniSONE) 30 mg DAILY ORAL 03/27/20 09:00 03/27/20 09:01 Prednisone (predniSONE) 40 mg DAILY ORAL 03/26/20 09:00 03/26/20 09:01 Sevelamer Carbonate (Renvela) 1,600 mg THREE TIMES A DAY ORAL 03/09/20 09:00 06/07/20 08:59 03/23/20 18:41 Tamsulosin HCl (Flomax) 0.4 mg BID ORAL 03/08/20 11:30 04/07/20 11:29 03/23/20 18:33 Vitamin B Complex (Vitamin B Complex) 1 tab DAILY ORAL 03/07/20 09:00 06/05/20 08:59 03/23/20 09:27 Assessment/Plan Problem List: (1) Hyperglycemia ICD Codes: R73.9 - Hyperglycemia, unspecified SNOMED: 83135279 (2) COPD (chronic obstructive pulmonary disease) ICD Codes: J44.9 - Chronic obstructive pulmonary disease, unspecified SNOMED: 19984795 Qualifiers: Qualified Codes: J44.1 - Chronic obstructive pulmonary disease with (acute) exacerbation (3) CHF (congestive heart failure) ICD Codes: I50.9 - Heart failure, unspecified SNOMED: 13104684 Qualifiers: Qualified Codes: I50.9 - Heart failure, unspecified (4) Hypoxia ICD Codes: R09.02 - Hypoxemia SNOMED: 471267905 (5) Renal failure (ARF), acute on chronic ICD Codes: N17.9 - Acute kidney failure, unspecified; N18.9 - Chronic kidney disease, unspecified SNOMED: 223883133 Qualifiers: Qualified Codes: N17.9 - Acute kidney failure, unspecified; N18.4 - Chronic kidney disease, stage 4 (severe) (6) HTN (hypertension) ICD Codes: I10 - Essential (primary) hypertension SNOMED: 52268861 Status: progressing Assessment/Plan: increase Levemir to 14 units bid increase Novolog to 10 units ac tid continue SSI John Taylor MD Mar 24, 2020 06:24
--- NOTE | 2020-03-24 07:00 | NUR ---
NURSE HAND-OFF REPORT: Important Events on Shift:[NA] Patient Status: [STABLE] Diet: [as per doctor order] Pending Orders: [NA] Pending Results/Labs:[NA] Pending MD notification:[NA] Latest Vital Signs: Temperature 98.4 , Pulse 83 , B/P 140 /80 , Respiratory Rate 18 , O2 SAT 99 , Nasal Cannula, O2 Flow Rate 2.0 . Vital Sign Comment: [stable] EKG Rhythm: SR w/ BBB Rhythm change?: N MD Notified?: N - MD Response: Latest Ryan Fall Score: 60 Fall Risk: High Risk Safety Measures: Call light Within Reach, Bed Alarm Zone 3, Side Rails Side Rails x3, Bed position Low and Locked. Fall Precautions: Yellow Socks Yellow Gown Door Sign Patient Fall Education Report given to [Alisha TAMAYO].
--- NOTE | 2020-03-24 07:35 | NUR ---
NURSE NOTES: Patient was seen in bed in semifowlers position, stable, alert and oriented x4. The bed was set to lowest position, bed locked, call light within reach, bed alarm was set to zone 3 and side rails were placed x3.
[2020-03-24 07:44] LABS: HEMATOCRIT 36.3 % (42.0-52.0); HEMOGLOBIN 11.4 G/DL (14.2-18.0); MEAN CORPUSCULAR VOLUME 87 FL (80-99); PLATELET COUNT 209 K/UL (150-450); RED BLOOD COUNT 4.15 M/UL (4.70-6.10); RED CELL DISTRIBUTION WIDTH 14.2 % (11.6-14.8); WHITE BLOOD COUNT 20.1 K/UL (4.8-10.8)
[2020-03-24 07:46] LABS: LYMPHOCYTES % (AUTO) 2.9 % (20.0-45.0); MONOCYTES % (AUTO) 0.5 % (1.0-10.0); NEUTROPHILS % (AUTO) 94.5 % (45.0-75.0)
[2020-03-24 08:40] LABS: ALANINE AMINOTRANSFERASE 30 U/L (12-78); ALBUMIN/GLOBULIN RATIO 0.6 (1.0-2.7); ALKALINE PHOSPHATASE 139 U/L (46-116); ANION GAP 7 mmol/L (5-15); ASPARTATE AMINO TRANSFERASE 17 U/L (15-37); BILIRUBIN,TOTAL 0.2 MG/DL (0.2-1.0); BLOOD UREA NITROGEN 89 mg/dL (7-18); CALCIUM 7.8 MG/DL (8.5-10.1); CARBON DIOXIDE 25 MMOL/L (21-32); CHLORIDE 102 MMOL/L (98-107); CREATININE 4.2 MG/DL (0.55-1.30); PHOSPHORUS 2.7 MG/DL (2.5-4.9); SODIUM 134 MMOL/L (136-145)
[2020-03-24] MEDS: Citalopram Hydrobromide 10mg Tab ORAL SCH (08:46)
[2020-03-24] MEDS: Tamsulosin 0.4mg cap ORAL SCH ×2 (08:48→17:15)
[2020-03-24] MEDS: Docusate 100mg cap ORAL SCH ×3 (08:48→17:14)
[2020-03-24] MEDS: Vitamin B Complex Tab ORAL SCH (08:48)
[2020-03-24] MEDS: Heparin 5000 units/ml inj SUBQ SCH ×2 (08:49→17:16)
[2020-03-24] MEDS: Lisinopril 2.5mg tab ORAL SCH (08:50)
[2020-03-24] MEDS: Levemir Flexpen SUBQ SCH ×2 (08:58→17:17)
--- NOTE | 2020-03-24 09:09 | NUR ---
NURSE NOTES: [facility] nephrology contacted for HD scheduled today. Spoke to Christopher.
--- NOTE | 2020-03-24 10:43 | Cardiac Electrophysiology PN ---
Assessment/Plan Assessment/Plan 1. Severe bilateral lower extremity edema with shortness of breath and BNP of almost 4000. EF 60%. Due to CHF due to diastolic dysfunction and renal failure, on HD. 2. Hypertension. On HD , hydralazine 50 mg tid, Lisinopril 5 daily and p.r.n. clonidine. 3. Renal failure, creatinine was 3.9 that increased to >4 with BUN 80. Started on HD.Pulled out his Right groin Janusz cath S/P Right chest PermCath placement 03/17/20 4. COPD.Off BIPAP now.On Solumedrol VIRGINIE RN Subjective Subjective No CP. ECG SR with RBBB, LAFB On Nasal Cannula. S/P Right chest PermCath placement 03/17/20 Now off BIPAP. On 2 liter NC and had HD today Objective Last 24 Hour Vital Signs Date Time Temp Pulse Resp B/P (MAP) Pulse Ox O2 Delivery O2 Flow Rate FiO2 03/24/20 09:00 Nasal Cannula 2.0 03/24/20 08:50 110/60 03/24/20 08:00 81 03/24/20 08:00 98.1 81 20 104/57 (73) 92 03/24/20 07:00 98.4 99 03/24/20 06:00 132/74 03/24/20 04:00 98.1 82 18 135/78 (97) 98 03/24/20 04:00 83 03/24/20 03:00 98.7 99 03/24/20 00:00 94 03/24/20 00:00 99.3 94 18 128/68 (88) 98 03/23/20 23:00 98.2 98 03/23/20 21:17 115/63 03/23/20 21:00 Nasal Cannula 2.0 03/23/20 20:00 98.1 93 18 115/63 (80) 97 03/23/20 20:00 89 03/23/20 19:50 95 Nasal Cannula 2.0 28 03/23/20 19:00 97.2 97 03/23/20 17:10 97.8 95 03/23/20 16:00 97.8 75 18 132/65 (87) 95 03/23/20 16:00 96 03/23/20 14:39 129/64 03/23/20 13:10 97.7 95 03/23/20 12:10 98.8 95 03/23/20 12:00 83 03/23/20 12:00 97.6 69 18 140/72 (94) 96 03/23/20 11:10 98.3 94 Intake and Output 03/23/20 03/24/20 18:59 06:59 Intake Total 140 ml Output Total 2300 ml Balance -2160 ml Intake Oral 140 ml Output Urine Total 2300 ml # Voids 3 Laboratory Tests Test 03/24/20 06:43 White Blood Count 20.1 K/UL (4.8-10.8) H Red Blood Count 4.15 M/UL (4.70-6.10) L Hemoglobin 11.4 G/DL (14.2-18.0) L Hematocrit 36.3 % (42.0-52.0) L Mean Corpuscular Volume 87 FL (80-99) Mean Corpuscular Hemoglobin 27.5 PG (27.0-31.0) Mean Corpuscular Hemoglobin Concent 31.5 G/DL (32.0-36.0) L Red Cell Distribution Width 14.2 % (11.6-14.8) Platelet Count 209 K/UL (150-450) Mean Platelet Volume 9.3 FL (6.5-10.1) Neutrophils (%) (Auto) 94.5 % (45.0-75.0) H Lymphocytes (%) (Auto) 2.9 % (20.0-45.0) L Monocytes (%) (Auto) 0.5 % (1.0-10.0) L Eosinophils (%) (Auto) 0.0 % (0.0-3.0) Basophils (%) (Auto) 0.0 % (0.0-2.0) Sodium Level 134 MMOL/L (136-145) L Potassium Level 4.0 MMOL/L (3.5-5.1) Chloride Level 102 MMOL/L (98-107) Carbon Dioxide Level 25 MMOL/L (21-32) Anion Gap 7 mmol/L (5-15) Blood Urea Nitrogen 89 mg/dL (7-18) H Creatinine 4.2 MG/DL (0.55-1.30) H Estimat Glomerular Filtration Rate 17.2 mL/min (>60) Glucose Level 247 MG/DL (74-106) H Uric Acid 5.4 MG/DL (2.6-7.2) Calcium Level 7.8 MG/DL (8.5-10.1) L Phosphorus Level 2.7 MG/DL (2.5-4.9) Total Bilirubin 0.2 MG/DL (0.2-1.0) Aspartate Amino Transf (AST/SGOT) 17 U/L (15-37) Alanine Aminotransferase (ALT/SGPT) 30 U/L (12-78) Alkaline Phosphatase 139 U/L (46-116) H C-Reactive Protein, Quantitative < 0.4 mg/dL (0.00-0.90) Pro-B-Type Natriuretic Peptide 2675 pg/mL (0-125) H Total Protein 5.1 G/DL (6.4-8.2) L Albumin 2.0 G/DL (3.4-5.0) L Globulin 3.1 g/dL Albumin/Globulin Ratio 0.6 (1.0-2.7) L Objective HEAD AND NECK: Positive JVD. LUNGS: Decreased breath sounds. Right chest PermCath in place CARDIOVASCULAR: Regular S1 and S2 with no gallop. ABDOMEN: Soft. EXTREMITIES: 2+ pitting edema in lower extremities as well as 2+ pitting edema in right arm. Ponce Serna MD Mar 24, 2020 10:43
--- NOTE | 2020-03-24 10:45 | NUR ---
DISCHARGE PLANNING PATIENT HAS BEEN SET UP WITH [facility] TIME IS MWF 4:30 PM PATIENT WILL DISCHARGE BACK TO [facility]
[2020-03-24] MEDS: Budesonide HHN 0.25mg/2ml ud HHN SCH ×2 (11:00→20:08)
--- NOTE | 2020-03-24 11:01 | Pulmonology Progress Note ---
Subjective ROS Limited/Unobtainable: Yes Interval Events: Now on nasal oxygen. Constitutional: Reports: no symptoms HEENT: Repors: no symptoms Respiratory: Reports: no symptoms Cardiovascular: Reports: no symptoms Gastrointestinal/Abdominal: Reports: no symptoms Genitourinary: Reports: no symptoms Allergies: Coded Allergies: PENICILLINS (Verified Allergy, Unknown, 03/06/20) Uncoded Allergies: SEAFOOD (Allergy, Unknown, 03/06/20) All Systems: reviewed and negative except above Objective Last 24 Hour Vital Signs Date Time Temp Pulse Resp B/P (MAP) Pulse Ox O2 Delivery O2 Flow Rate FiO2 03/24/20 09:00 Nasal Cannula 2.0 03/24/20 08:50 110/60 03/24/20 08:00 81 03/24/20 08:00 98.1 81 20 104/57 (73) 92 03/24/20 07:00 98.4 99 03/24/20 06:00 132/74 03/24/20 04:00 98.1 82 18 135/78 (97) 98 03/24/20 04:00 83 03/24/20 03:00 98.7 99 03/24/20 00:00 94 03/24/20 00:00 99.3 94 18 128/68 (88) 98 03/23/20 23:00 98.2 98 03/23/20 21:17 115/63 03/23/20 21:00 Nasal Cannula 2.0 03/23/20 20:00 98.1 93 18 115/63 (80) 97 03/23/20 20:00 89 03/23/20 19:50 95 Nasal Cannula 2.0 28 03/23/20 19:00 97.2 97 03/23/20 17:10 97.8 95 03/23/20 16:00 97.8 75 18 132/65 (87) 95 03/23/20 16:00 96 03/23/20 14:39 129/64 03/23/20 13:10 97.7 95 03/23/20 12:10 98.8 95 03/23/20 12:00 83 03/23/20 12:00 97.6 69 18 140/72 (94) 96 03/23/20 11:10 98.3 94 Intake and Output 03/23/20 03/24/20 19:00 07:00 Intake Total 140 ml Output Total 1200 ml 1100 ml Balance -1060 ml -1100 ml Intake Oral 140 ml Output Urine Total 1200 ml 1100 ml # Voids 3 General Appearance: no acute distress HEENT: normocephalic Respiratory: chest wall non-tender, decreased breath sounds Cardiovascular: normal peripheral pulses, normal rate Abdomen: normal bowel sounds Laboratory Tests 03/24/20 06:43: White Blood Count 20.1H, Red Blood Count 4.15L, Hemoglobin 11.4L, Hematocrit 36.3L, Mean Corpuscular Volume 87, Mean Corpuscular Hemoglobin 27.5, Mean C orpuscular Hemoglobin Concent 31.5L, Red Cell Distribution Width 14.2, Platelet Count 209, Mean Platelet Volume 9.3, Neutrophils (%) (Auto) 94.5H, Lymphocytes (%) (Auto) 2.9L, Monocytes (%) (Auto) 0.5L, Eosinophils (%) (Auto) 0.0, Basophils (%) (Auto) 0.0, Sodium Level 134L, Potassium Level 4.0, Chloride Level 102, Carbon Dioxide Level 25, Anion Gap 7, Blood Urea Nitrogen 89H, Creatinine 4.2H, Estimat Glomerular Filtration Rate 17.2, Glucose Level 247H, Uric Acid 5.4, Calcium Level 7.8L, Phosphorus Level 2.7, Total Bilirubin 0.2, Aspartate Amino Transf (AST/SGOT) 17, Alanine Aminotransferase (ALT/SGPT) 30, Alkaline Phosphatase 139H, C-Reactive Protein, Quantitative < 0.4, Pro-B-Type Natriuretic Peptide 2675H, Total Protein 5.1L, Albumin 2.0L, Globulin 3.1, Albumin/Globulin Ratio 0.6L Current Medications Medications (Trade) Dose Ordered Sig/Melissa Route PRN Reason Start Time Stop Time Status Last Admin Dose Admin Allopurinol (allopurinoL) 300 mg DAILY ORAL 03/09/20 14:30 04/08/20 14:29 03/24/20 08:48 Budesonide (Pulmicort) 0.25 mg EVERY 12 HOURS N 03/06/20 21:00 06/04/20 20:59 03/24/20 11:00 Chlorhexidine Gluconate (Cherry-Hex 2%) 1 applic DAILY@1999 TOPIC 03/17/20 20:00 06/15/20 19:59 03/23/20 21:20 Chlorhexidine Gluconate (Cherry-Hex 2%) 1 applic DAILY@2000 TOPIC 03/10/20 21:45 06/08/20 21:44 03/22/20 22:21 Citalopram Hydrobromide (CeleXA) 20 mg DAILY ORAL 03/10/20 09:00 04/09/20 08:59 03/24/20 08:46 Clonidine HCl (Catapres Tab) 0.1 mg Q4H PRN ORAL SBP>170 03/06/20 16:15 06/04/20 16:14 Dextrose (Dextrose 50%) 25 ml Q30M PRN IV Hypoglycemia 03/13/20 16:30 06/11/20 16:29 Dextrose (Dextrose 50%) 50 ml Q30M PRN IV Hypoglycemia 03/13/20 16:30 06/11/20 16:29 Diphenhydramine HCl (Benadryl) 50 mg Q6H PRN ORAL Itching 03/06/20 19:00 04/05/20 18:59 03/22/20 22:22 Docusate Sodium (Colace) 100 mg THREE TIMES A DAY ORAL 03/08/20 13:00 04/07/20 12:59 03/24/20 08:48 Guaifenesin/ Dextromethorphan (Robitussin DM Syrup) 10 ml Q4H PRN ORAL For Cough 03/06/20 19:00 06/04/20 18:59 03/12/20 00:51 Heparin Sodium (Porcine) (Heparin 5000 units/ml) 5,000 units BID SUBQ 03/07/20 09:00 04/21/20 08:59 03/24/20 08:49 Hydralazine HCl (Apresoline) 50 mg Q8HR ORAL 03/11/20 14:00 06/04/20 17:59 03/24/20 06:00 Insulin Aspart (NovoLOG) BEFORE MEALS AND HS SUBQ 03/13/20 16:30 06/11/20 16:29 03/24/20 06:02 Insulin Aspart (NovoLOG) 10 units NOVOTIAC SUBQ 03/24/20 11:50 06/13/20 06:29 Insulin Detemir (Levemir) 14 units BID SUBQ 03/24/20 09:00 06/13/20 08:59 03/24/20 08:58 Levofloxacin (Levaquin) 750 mg Q48H ORAL 03/20/20 17:00 03/27/20 16:59 03/22/20 16:52 Lisinopril (ZestriL) 5 mg DAILY ORAL 03/17/20 09:00 04/16/20 08:59 03/24/20 08:50 Lorazepam (Ativan 2mg/ml 1ml) 1 mg Q4H PRN IV Agitation 03/19/20 22:15 03/26/20 22:14 Methylprednisolone Sodium Succinate (Solu-MEDROL) 40 mg Q12H IVP 03/23/20 18:00 03/25/20 06:01 03/24/20 06:00 Pantoprazole (Protonix) 40 mg EVERY 12 HOURS ORAL 03/08/20 21:00 04/07/20 20:59 03/24/20 08:47 Phenol/Menthol (Chloraseptic) 1 spray TIDPRN PRN ORAL For Pain 03/06/20 19:00 06/04/20 18:59 Prednisone (predniSONE) 10 mg DAILY ORAL 03/29/20 09:00 03/29/20 09:01 Prednisone (predniSONE) 20 mg DAILY ORAL 03/28/20 09:00 03/28/20 09:01 Prednisone (predniSONE) 30 mg DAILY ORAL 03/27/20 09:00 03/27/20 09:01 Prednisone (predniSONE) 40 mg DAILY ORAL 03/26/20 09:00 03/26/20 09:01 Sevelamer Carbonate (Renvela) 1,600 mg THREE TIMES A DAY ORAL 03/09/20 09:00 06/07/20 08:59 03/24/20 08:48 Tamsulosin HCl (Flomax) 0.4 mg BID ORAL 03/08/20 11:30 04/07/20 11:29 03/24/20 08:48 Vitamin B Complex (Vitamin B Complex) 1 tab DAILY ORAL 03/07/20 09:00 06/05/20 08:59 03/24/20 08:48 Assessment/Plan Assessment/Plan IMPRESSION: 1. Improved pulmonary edema/ s/p HD 2. Hypertension. 3. Diabetes mellitus. 4. Renal failure. 5. COPD. 6. Negative COVID 19 7. Small R pleural effusion 8. Peristent leucocytosis DISCUSSION: Continue breathing treatments with albuterol and Atrovent Negative COVID 19 Broad-spectrum antibiotics I will follow carefully. HD per renal Oxygenation improved Continue on nasal oxygen. DC BiPAp Dc planning to SNF Jie Rivera Omar Syed MD Mar 24, 2020 11:01
--- NOTE | 2020-03-24 11:15 | NUR ---
NURSE NOTES: Spoke to [facility] nurse regarding time for HD scheduled today. Per [facility] the patient will dialyzed evening time. RN endorsed to [facility] that patient is discharged and pending HD. Guera TAMAYO shop supervisor made aware.
--- NOTE | 2020-03-24 11:23 | Infectious Diseases Prog Note ---
Assessment/Plan Assessment/Plan IMPRESSION: 1. Pneumonia. 2. COPD. 3. Pulmonary edema. 4. CHF. 5. Diabetes mellitus. 6. Hypertension. 7. ESRD 8. Anemia. 9. BPH. 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 Pleural effusion 12. Leukocytosis, RECOMMENDATION: Continue Levaquin X 3 days Taper steroids will f/u CBC Subjective ROS Limited/Unobtainable: Yes Constitutional: Denies: fever Allergies: Coded Allergies: PENICILLINS (Verified Allergy, Unknown, 03/06/20) Uncoded Allergies: SEAFOOD (Allergy, Unknown, 03/06/20) Objective Last 24 Hour Vital Signs Date Time Temp Pulse Resp B/P (MAP) Pulse Ox O2 Delivery O2 Flow Rate FiO2 03/24/20 11:01 83 18 98 Nasal Cannula 2.0 28 81 18 97 03/24/20 11:01 97 Nasal Cannula 2.0 28 03/24/20 09:00 Nasal Cannula 2.0 03/24/20 08:50 110/60 03/24/20 08:00 81 03/24/20 08:00 98.1 81 20 104/57 (73) 92 03/24/20 07:00 98.4 99 03/24/20 06:00 132/74 03/24/20 04:00 98.1 82 18 135/78 (97) 98 03/24/20 04:00 83 03/24/20 03:00 98.7 99 03/24/20 00:00 94 03/24/20 00:00 99.3 94 18 128/68 (88) 98 03/23/20 23:00 98.2 98 03/23/20 21:17 115/63 03/23/20 21:00 Nasal Cannula 2.0 03/23/20 20:00 98.1 93 18 115/63 (80) 97 03/23/20 20:00 89 03/23/20 19:50 95 Nasal Cannula 2.0 28 03/23/20 19:00 97.2 97 03/23/20 17:10 97.8 95 03/23/20 16:00 97.8 75 18 132/65 (87) 95 03/23/20 16:00 96 03/23/20 14:39 129/64 03/23/20 13:10 97.7 95 03/23/20 12:10 98.8 95 03/23/20 12:00 83 03/23/20 12:00 97.6 69 18 140/72 (94) 96 Height (Feet): 5 Height (Inches): 9.00 Weight (Pounds): 228 General Appearance: no acute distress HEENT: mucous membranes moist Respiratory/Chest: lungs clear, other - oxygen Cardiovascular: normal rate Abdomen: soft, non tender Extremities: no edema Neurologic/Psychiatric: other - sleeping Laboratory Tests Test 03/24/20 06:43 White Blood Count 20.1 K/UL (4.8-10.8) H Red Blood Count 4.15 M/UL (4.70-6.10) L Hemoglobin 11.4 G/DL (14.2-18.0) L Hematocrit 36.3 % (42.0-52.0) L Mean Corpuscular Volume 87 FL (80-99) Mean Corpuscular Hemoglobin 27.5 PG (27.0-31.0) Mean Corpuscular Hemoglobin Concent 31.5 G/DL (32.0-36.0) L Red Cell Distribution Width 14.2 % (11.6-14.8) Platelet Count 209 K/UL (150-450) Mean Platelet Volume 9.3 FL (6.5-10.1) Neutrophils (%) (Auto) 94.5 % (45.0-75.0) H Lymphocytes (%) (Auto) 2.9 % (20.0-45.0) L Monocytes (%) (Auto) 0.5 % (1.0-10.0) L Eosinophils (%) (Auto) 0.0 % (0.0-3.0) Basophils (%) (Auto) 0.0 % (0.0-2.0) Sodium Level 134 MMOL/L (136-145) L Potassium Level 4.0 MMOL/L (3.5-5.1) Chloride Level 102 MMOL/L (98-107) Carbon Dioxide Level 25 MMOL/L (21-32) Anion Gap 7 mmol/L (5-15) Blood Urea Nitrogen 89 mg/dL (7-18) H Creatinine 4.2 MG/DL (0.55-1.30) H Estimat Glomerular Filtration Rate 17.2 mL/min (>60) Glucose Level 247 MG/DL (74-106) H Uric Acid 5.4 MG/DL (2.6-7.2) Calcium Level 7.8 MG/DL (8.5-10.1) L Phosphorus Level 2.7 MG/DL (2.5-4.9) Total Bilirubin 0.2 MG/DL (0.2-1.0) Aspartate Amino Transf (AST/SGOT) 17 U/L (15-37) Alanine Aminotransferase (ALT/SGPT) 30 U/L (12-78) Alkaline Phosphatase 139 U/L (46-116) H C-Reactive Protein, Quantitative < 0.4 mg/dL (0.00-0.90) Pro-B-Type Natriuretic Peptide 2675 pg/mL (0-125) H Total Protein 5.1 G/DL (6.4-8.2) L Albumin 2.0 G/DL (3.4-5.0) L Globulin 3.1 g/dL Albumin/Globulin Ratio 0.6 (1.0-2.7) L Current Medications Medications (Trade) Dose Ordered Sig/Melissa Route PRN Reason Start Time Stop Time Status Last Admin Dose Admin Allopurinol (allopurinoL) 300 mg DAILY ORAL 03/09/20 14:30 04/08/20 14:29 03/24/20 08:48 Budesonide (Pulmicort) 0.25 mg EVERY 12 HOURS HHN 03/06/20 21:00 06/04/20 20:59 03/24/20 11:00 Chlorhexidine Gluconate (Cherry-Hex 2%) 1 applic DAILY@1999 TOPIC 03/17/20 20:00 06/15/20 19:59 03/23/20 21:20 Chlorhexidine Gluconate (Cherry-Hex 2%) 1 applic DAILY@1999 TOPIC 03/10/20 21:45 06/08/20 21:44 03/22/20 22:21 Citalopram Hydrobromide (CeleXA) 20 mg DAILY ORAL 03/10/20 09:00 04/09/20 08:59 03/24/20 08:46 Clonidine HCl (Catapres Tab) 0.1 mg Q4H PRN ORAL SBP>170 03/06/20 16:15 06/04/20 16:14 Dextrose (Dextrose 50%) 25 ml Q30M PRN IV Hypoglycemia 03/13/20 16:30 06/11/20 16:29 Dextrose (Dextrose 50%) 50 ml Q30M PRN IV Hypoglycemia 03/13/20 16:30 06/11/20 16:29 Diphenhydramine HCl (Benadryl) 50 mg Q6H PRN ORAL Itching 03/06/20 19:00 04/05/20 18:59 03/22/20 22:22 Docusate Sodium (Colace) 100 mg THREE TIMES A DAY ORAL 03/08/20 13:00 04/07/20 12:59 03/24/20 08:48 Guaifenesin/ Dextromethorphan (Robitussin DM Syrup) 10 ml Q4H PRN ORAL For Cough 03/06/20 19:00 06/04/20 18:59 03/12/20 00:51 Heparin Sodium (Porcine) (Heparin 5000 units/ml) 5,000 units BID SUBQ 03/07/20 09:00 04/21/20 08:59 03/24/20 08:49 Hydralazine HCl (Apresoline) 50 mg Q8HR ORAL 03/11/20 14:00 06/04/20 17:59 03/24/20 06:00 Insulin Aspart (NovoLOG) BEFORE MEALS AND HS SUBQ 03/13/20 16:30 06/11/20 16:29 03/24/20 06:02 Insulin Aspart (NovoLOG) 10 units NOVOTIAC SUBQ 03/24/20 11:50 06/13/20 06:29 Insulin Detemir (Levemir) 14 units BID SUBQ 03/24/20 09:00 06/13/20 08:59 03/24/20 08:58 Levofloxacin (Levaquin) 750 mg Q48H ORAL 03/20/20 17:00 03/27/20 16:59 03/22/20 16:52 Lisinopril (ZestriL) 5 mg DAILY ORAL 03/17/20 09:00 04/16/20 08:59 03/24/20 08:50 Lorazepam (Ativan 2mg/ml 1ml) 1 mg Q4H PRN IV Agitation 03/19/20 22:15 03/26/20 22:14 Methylprednisolone Sodium Succinate (Solu-MEDROL) 40 mg Q12H IVP 03/23/20 18:00 03/25/20 06:01 03/24/20 06:00 Pantoprazole (Protonix) 40 mg EVERY 12 HOURS ORAL 03/08/20 21:00 04/07/20 20:59 03/24/20 08:47 Phenol/Menthol (Chloraseptic) 1 spray TIDPRN PRN ORAL For Pain 03/06/20 19:00 06/04/20 18:59 Prednisone (predniSONE) 10 mg DAILY ORAL 03/29/20 09:00 03/29/20 09:01 Prednisone (predniSONE) 20 mg DAILY ORAL 03/28/20 09:00 03/28/20 09:01 Prednisone (predniSONE) 30 mg DAILY ORAL 03/27/20 09:00 03/27/20 09:01 Prednisone (predniSONE) 40 mg DAILY ORAL 03/26/20 09:00 03/26/20 09:01 Sevelamer Carbonate (Renvela) 1,600 mg THREE TIMES A DAY ORAL 03/09/20 09:00 06/07/20 08:59 03/24/20 08:48 Tamsulosin HCl (Flomax) 0.4 mg BID ORAL 03/08/20 11:30 04/07/20 11:29 03/24/20 08:48 Vitamin B Complex (Vitamin B Complex) 1 tab DAILY ORAL 03/07/20 09:00 06/05/20 08:59 03/24/20 08:48 Brett Pleitez MD Mar 24, 2020 11:23
--- NOTE | 2020-03-24 13:33 | Consultation ---
History of Present Illness General Date patient seen: Mar 24, 2020 Time patient seen: 13:32 Chief Complaint: Fall Referring physician: Dr. Chavez Reason for Consultation: Fall, Head Trauma Present Illness HPI This is a69 year old male patient who sustained an unwitness fall on 03/23/2020 while getting up oob he states he felt dizzy and lost his balance and fell. Denies losing consciousness. He is now using a walker to ambualte. He has history of diabetes, toe amputation, copd, HD copd, uses cpap at night hypertension, osteomyleitis.We were consulted for fall. Allergies: Coded Allergies: PENICILLINS (Verified Allergy, Unknown, 03/06/20) Uncoded Allergies: SEAFOOD (Allergy, Unknown, 03/06/20) Medication History Scheduled Amlodipine Besylate* (Amlodipine Besylate*), 5 MG ORAL TWICE A DAY, (Reported) Budesonide (Pulmicort Flexhaler), 2 PUFF IH Q12HR, (Reported) Insulin Lispro (Humalog), 0 SUBQ per sliding scale, (Reported) Ipratropium/Albuterol Sulfate (Iprat-Albut 0.5-3(2.5) Mg/3 Ml), 1 PUFF IH Q4HR, (Reported) Povidone-Iodine (Betadine), ML TP DAILY, (Reported) Vitamin B Cmplx/Vit C/Folic AC (Nephro-Karina Tablet), 1 TAB ORAL DAILY, (Reported) Scheduled PRN Acetaminophen* (Acetaminophen 325MG Tablet*), 650 MG ORAL Q4H PRN for MILD PAIN (1-3), TEMP>100.4F, (Reported) Clonidine Hcl (Clonidine Hcl), 0.1 MG PO Q6HR PRN for For High Blood Pressure, (Reported) Diphenhydramine Hcl* (Benadryl*), 25 MG ORAL Q6H PRN for Itching, (Reported) Guaifenesin* (Guaifenesin*), 10 ML ORAL Q4H PRN for FOR COUGH, (Reported) Hydrocodone Bit/Acetaminophen 5-325* ([place] 5-325 Tablet*), 1 TAB ORAL Q4H PRN for MODERATE PAIN (4-6), (Reported) Patient History Healthcare decision maker Resuscitation status Advanced Directive on File Past Medical/Surgical History Past Medical/Surgical History: (1) COPD (chronic obstructive pulmonary disease) (2) HTN (hypertension) (3) Renal failure (ARF), acute on chronic Review of Systems All Other Systems: negative except mentioned in HPI Physical Exam Last 24 Hour Vital Signs Date Time Temp Pulse Resp B/P (MAP) Pulse Ox O2 Delivery O2 Flow Rate FiO2 03/24/20 11:01 83 18 98 Nasal Cannula 2.0 28 81 18 97 03/24/20 11:01 97 Nasal Cannula 2.0 28 03/24/20 11:00 97.7 99 03/24/20 09:00 Nasal Cannula 2.0 03/24/20 08:50 110/60 03/24/20 08:00 81 03/24/20 08:00 98.1 81 20 104/57 (73) 92 03/24/20 07:00 98.4 99 03/24/20 06:00 132/74 03/24/20 04:00 98.1 82 18 135/78 (97) 98 03/24/20 04:00 83 03/24/20 03:00 98.7 99 03/24/20 00:00 94 03/24/20 00:00 99.3 94 18 128/68 (88) 98 03/23/20 23:00 98.2 98 03/23/20 21:17 115/63 03/23/20 21:00 Nasal Cannula 2.0 03/23/20 20:00 98.1 93 18 115/63 (80) 97 03/23/20 20:00 89 03/23/20 19:50 95 Nasal Cannula 2.0 28 03/23/20 19:00 97.2 97 03/23/20 17:10 97.8 95 03/23/20 16:00 97.8 75 18 132/65 (87) 95 03/23/20 16:00 96 03/23/20 14:39 129/64 Intake and Output 03/23/20 03/24/20 19:00 07:00 Intake Total 140 ml Output Total 1200 ml 1100 ml Balance -1060 ml -1100 ml Intake Oral 140 ml Output Urine Total 1200 ml 1100 ml # Voids 3 Laboratory Tests Test 03/24/20 06:43 White Blood Count 20.1 K/UL (4.8-10.8) H Red Blood Count 4.15 M/UL (4.70-6.10) L Hemoglobin 11.4 G/DL (14.2-18.0) L Hematocrit 36.3 % (42.0-52.0) L Mean Corpuscular Volume 87 FL (80-99) Mean Corpuscular Hemoglobin 27.5 PG (27.0-31.0) Mean Corpuscular Hemoglobin Concent 31.5 G/DL (32.0-36.0) L Red Cell Distribution Width 14.2 % (11.6-14.8) Platelet Count 209 K/UL (150-450) Mean Platelet Volume 9.3 FL (6.5-10.1) Neutrophils (%) (Auto) 94.5 % (45.0-75.0) H Lymphocytes (%) (Auto) 2.9 % (20.0-45.0) L Monocytes (%) (Auto) 0.5 % (1.0-10.0) L Eosinophils (%) (Auto) 0.0 % (0.0-3.0) Basophils (%) (Auto) 0.0 % (0.0-2.0) Sodium Level 134 MMOL/L (136-145) L Potassium Level 4.0 MMOL/L (3.5-5.1) Chloride Level 102 MMOL/L (98-107) Carbon Dioxide Level 25 MMOL/L (21-32) Anion Gap 7 mmol/L (5-15) Blood Urea Nitrogen 89 mg/dL (7-18) H Creatinine 4.2 MG/DL (0.55-1.30) H Estimat Glomerular Filtration Rate 17.2 mL/min (>60) Glucose Level 247 MG/DL (74-106) H Uric Acid 5.4 MG/DL (2.6-7.2) Calcium Level 7.8 MG/DL (8.5-10.1) L Phosphorus Level 2.7 MG/DL (2.5-4.9) Total Bilirubin 0.2 MG/DL (0.2-1.0) Aspartate Amino Transf (AST/SGOT) 17 U/L (15-37) Alanine Aminotransferase (ALT/SGPT) 30 U/L (12-78) Alkaline Phosphatase 139 U/L (46-116) H C-Reactive Protein, Quantitative < 0.4 mg/dL (0.00-0.90) Pro-B-Type Natriuretic Peptide 2675 pg/mL (0-125) H Total Protein 5.1 G/DL (6.4-8.2) L Albumin 2.0 G/DL (3.4-5.0) L Globulin 3.1 g/dL Albumin/Globulin Ratio 0.6 (1.0-2.7) L Height (Feet): 5 Height (Inches): 9.00 Weight (Pounds): 228 Medications Current Medications Medications (Trade) Dose Ordered Sig/Melissa Route PRN Reason Start Time Stop Time Status Last Admin Dose Admin Allopurinol (allopurinoL) 300 mg DAILY ORAL 03/09/20 14:30 04/08/20 14:29 03/24/20 08:48 Budesonide (Pulmicort) 0.25 mg EVERY 12 HOURS HHN 03/06/20 21:00 06/04/20 20:59 03/24/20 11:00 Chlorhexidine Gluconate (Cherry-Hex 2%) 1 applic DAILY@1999 TOPIC 03/17/20 20:00 06/15/20 19:59 03/23/20 21:20 Chlorhexidine Gluconate (Cherry-Hex 2%) 1 applic DAILY@1999 TOPIC 03/10/20 21:45 06/08/20 21:44 03/22/20 22:21 Citalopram Hydrobromide (CeleXA) 20 mg DAILY ORAL 03/10/20 09:00 04/09/20 08:59 03/24/20 08:46 Clonidine HCl (Catapres Tab) 0.1 mg Q4H PRN ORAL SBP>170 03/06/20 16:15 06/04/20 16:14 Dextrose (Dextrose 50%) 25 ml Q30M PRN IV Hypoglycemia 03/13/20 16:30 06/11/20 16:29 Dextrose (Dextrose 50%) 50 ml Q30M PRN IV Hypoglycemia 03/13/20 16:30 06/11/20 16:29 Diphenhydramine HCl (Benadryl) 50 mg Q6H PRN ORAL Itching 03/06/20 19:00 04/05/20 18:59 03/22/20 22:22 Docusate Sodium (Colace) 100 mg THREE TIMES A DAY ORAL 03/08/20 13:00 04/07/20 12:59 03/24/20 12:28 Guaifenesin/ Dextromethorphan (Robitussin DM Syrup) 10 ml Q4H PRN ORAL For Cough 03/06/20 19:00 06/04/20 18:59 03/12/20 00:51 Heparin Sodium (Porcine) (Heparin 5000 units/ml) 5,000 units BID SUBQ 03/07/20 09:00 04/21/20 08:59 03/24/20 08:49 Hydralazine HCl (Apresoline) 50 mg Q8HR ORAL 03/11/20 14:00 06/04/20 17:59 03/24/20 06:00 Insulin Aspart (NovoLOG) BEFORE MEALS AND HS SUBQ 03/13/20 16:30 06/11/20 16:29 03/24/20 12:32 Insulin Aspart (NovoLOG) 10 units NOVOTIAC SUBQ 03/24/20 11:50 06/13/20 06:29 03/24/20 12:31 Insulin Detemir (Levemir) 14 units BID SUBQ 03/24/20 09:00 06/13/20 08:59 03/24/20 08:58 Levofloxacin (Levaquin) 750 mg Q48H ORAL 03/20/20 17:00 03/27/20 16:59 03/22/20 16:52 Lisinopril (ZestriL) 5 mg DAILY ORAL 03/17/20 09:00 04/16/20 08:59 03/24/20 08:50 Lorazepam (Ativan 2mg/ml 1ml) 1 mg Q4H PRN IV Agitation 03/19/20 22:15 03/26/20 22:14 Methylprednisolone Sodium Succinate (Solu-MEDROL) 40 mg Q12H IVP 03/23/20 18:00 03/25/20 06:01 03/24/20 06:00 Pantoprazole (Protonix) 40 mg EVERY 12 HOURS ORAL 03/08/20 21:00 04/07/20 20:59 03/24/20 08:47 Phenol/Menthol (Chloraseptic) 1 spray TIDPRN PRN ORAL For Pain 03/06/20 19:00 06/04/20 18:59 Prednisone (predniSONE) 10 mg DAILY ORAL 03/29/20 09:00 03/29/20 09:01 Prednisone (predniSONE) 20 mg DAILY ORAL 03/28/20 09:00 03/28/20 09:01 Prednisone (predniSONE) 30 mg DAILY ORAL 03/27/20 09:00 03/27/20 09:01 Prednisone (predniSONE) 40 mg DAILY ORAL 03/26/20 09:00 03/26/20 09:01 Sevelamer Carbonate (Renvela) 1,600 mg THREE TIMES A DAY ORAL 03/09/20 09:00 06/07/20 08:59 03/24/20 12:28 Tamsulosin HCl (Flomax) 0.4 mg BID ORAL 03/08/20 11:30 04/07/20 11:29 03/24/20 08:48 Vitamin B Complex (Vitamin B Complex) 1 tab DAILY ORAL 03/07/20 09:00 06/05/20 08:59 03/24/20 08:48 Objective Narrative OBJECTIVE: Reveals an older male sitting at the edge of the bed. In No apparent distress NEUROLOGIC: Mental Status: Awake, Alert and Oriented x3 He has insight to his situation, not a very good historian Speech is normal and he ia able to comprehend and follow simple commands. Cranial nerves I-XII were tested. Pupils are equal and reactive to light EOM intact. Tongue is midline. Bilat upper extremity strength is equal Facial expression and sensation are symmetric. Sensation is decreased in bilat feet. Reflexes are symmetric. Gait is normal slow and steady with walker. No finger to nose ataxia. Assessment/Plan Diagnosis [place]: Assessment 1. Fall 2. Dizziness 3. Diabetic Neuropathy 4. COPD 5. Diabetes 6. Hypertension 7. Hx Amputation of toe Plan 1. Safety Precautions, loss of balance multifactorial likely due to hypotension and diabetic neuropathy --> CT Head was ordered and revealed no intracranial pathology. 2. Check Orthostatic vitals, consider MRI Brain if continues to experience dizziness and loss of balance which can be done outpatient 3. Outpatient follow up 4. Stable no exacerbation 5. accuchecks 6. controlled aMrti Cao NP Mar 24, 2020 13:33
--- NOTE | 2020-03-24 13:36 | Nephrology Progress Note ---
Assessment/Plan Problem List: (1) Renal failure (ARF), acute on chronic (2) Hypoxia (3) CHF (congestive heart failure) (4) COPD (chronic obstructive pulmonary disease) (5) HTN (hypertension) (6) Hyperkalemia Assessment Acute renal failure Possible underlying chronic kidney disease Hyperkalemia Respiratory failure: Combination of diastolic CHF, COPD, possible pneumonia Hypertension Diabetes mellitus Negative COVID-19 rapid test Plan March 24: Patient due for dialysis today. Labs reviewed. White blood cell 20,000. Suggest surveillance blood cultures. Patient continues to be on tapering steroidsNov: Last dialysis yesterday. Labs reviewed. Medication list reviewed. Appears stable. Will check lab tomorrow. Dialysis as needed. Observe patient on tapering dose of oral steroids. March 22: Dialyzed this morning. Labs reviewed. Leukocytosis persists. Continue per consultants. March 21: Patient in [place]. Dialyzed yesterday. Clinically improved. ABG improved. Labs and medication list improved. Will aim to dialyze again tomorrow. March 20: Patient in [place]. Dialyzed today. On BiPAP now. ABG improved. Discussed with . Continue to optimize pulmonary status and monitor renal parameters and dialysis as needed. Discussed with RN. Leukocytosis worsened. Continue per ID advice March 19: Labs reviewed. Dialyzed yesterday. Leukocytosis worsened. Continue per ID. Patient encephalopathic. Attempt dialysis tomorrow. March 18: Labs reviewed. Patient has a tunneled catheter. Will dialyze today. Continue placement process for outpatient hemodialysis. Discussed with RN. March 17: Labs reviewed. Serum creatinine rising. Patient needs to be cont inue on dialysis. Regretfully he pulled out his femoral dialysis catheter. Discussed with RN. Patient need to be consented for placement of tunneled dialysis catheter for continued dialysis. If needed, psychiatric clearance regarding if the patient is mentally fit to make decisions. March 16: Last hemodialysis March 14. Clinically doing well. Serum creatinine rising. Today creatinine is 3.7. Will check labs tomorrow if further rise of creatinine will arrange for dialysis and placement of the ca theter for the outpatient dialysis due to acute on chronic renal failure. March 15: Last HD 03/14. Doing well. continue to monitor renal parameters . Discussed with Dr Caceres. Continue to rest March 14: Dialyzed March 12. Serum creatinine today 4.2. Will do dialysis and ultrafiltration today. Continue per pulmonary. March 13: Dialyzed yesterday. Serum creatinine 3.8 unchanged. Continue per pulmonary. Hemodialysis as needed. Continue to monitor renal parameters. March 12: Due for dialysis today. Discussed with pulmonary, patient due for right pleural effusion tap today. Labs reviewed. Continue per current managem ent. Continue to monitor renal parameters. March 11: Patient was dialyzed 2 days in a row with total of 7 L fluid removal. Today's ABG still suggestive of hypoxia. Patient uncooperative and does not keep the oxygen mask on. Labs reviewed. Renal parameters reasonable. Will attempt dialysis again tomorrow. Will discuss with Dr. Caceres with regard to possible initiation of steroid's, if underlying COPD is a major cause for the current pulmonary state. March 10: Patient was dialyzed yesterday. Over 3 L ultrafiltration done. Patient will be dialyzed again today with ultrafiltration. Continue to monitor pulmonary status. Discussed with . March 09: Seen this morning during hemodialysis. Patient has a femoral catheter for dialysis access. Aim to ultrafiltrate 3 to 4 L. Postdialysis will stop IV Lasix. We will continue to monitor urine output and renal parameters. Phos binders ordered. Per orders. Ultrasound results noted. Previously: Since diuretic treatment is not working, and the patient is volume overloaded and has difficulty breathing with lower extremity edema and possible ascites will aim to dialyze and do ultrafiltration. Adjust blood pressure medication. Kidney ultrasound, results noted Flomax twice daily Adjust the diet. Change to renal Pulmonary toilet Afterload preload reduction Avoid nephrotoxic's Subjective ROS Limited/Unobtainable: No Constitutional: Reports: malaise Objective Objective Last 24 Hour Vital Signs Date Time Temp Pulse Resp B/P (MAP) Pulse Ox O2 Delivery O2 Flow Rate FiO2 03/24/20 11:01 83 18 98 Nasal Cannula 2.0 28 81 18 97 03/24/20 11:01 97 Nasal Cannula 2.0 28 03/24/20 11:00 97.7 99 03/24/20 09:00 Nasal Cannula 2.0 03/24/20 08:50 110/60 03/24/20 08:00 81 03/24/20 08:00 98.1 81 20 104/57 (73) 92 03/24/20 07:00 98.4 99 03/24/20 06:00 132/74 03/24/20 04:00 98.1 82 18 135/78 (97) 98 03/24/20 04:00 83 03/24/20 03:00 98.7 99 03/24/20 00:00 94 03/24/20 00:00 99.3 94 18 128/68 (88) 98 03/23/20 23:00 98.2 98 03/23/20 21:17 115/63 03/23/20 21:00 Nasal Cannula 2.0 03/23/20 20:00 98.1 93 18 115/63 (80) 97 03/23/20 20:00 89 03/23/20 19:50 95 Nasal Cannula 2.0 28 03/23/20 19:00 97.2 97 03/23/20 17:10 97.8 95 03/23/20 16:00 97.8 75 18 132/65 (87) 95 03/23/20 16:00 96 03/23/20 14:39 129/64 Intake and Output 03/23/20 03/24/20 19:00 07:00 Intake Total 140 ml Output Total 1200 ml 1100 ml Balance -1060 ml -1100 ml Intake Oral 140 ml Output Urine Total 1200 ml 1100 ml # Voids 3 Laboratory Tests 03/24/20 06:43: White Blood Count 20.1H, Red Blood Count 4.15L, Hemoglobin 11.4L, Hematocrit 36.3L, Mean Corpuscular Volume 87, Mean Corpuscular Hemoglobin 27.5, Mean Corpuscular Hemoglobin Concent 31.5L, Red Cell Distribution Width 14.2, Platelet Count 209, Mean Platelet Volume 9.3, Neutrophils (%) (Auto) 94.5H, Lymphocytes ( %) (Auto) 2.9L, Monocytes (%) (Auto) 0.5L, Eosinophils (%) (Auto) 0.0, Basophils (%) (Auto) 0.0, Sodium Level 134L, Potassium Level 4.0, Chloride Level 102, Carbon Dioxide Level 25, Anion Gap 7, Blood Urea Nitrogen 89H, Creatinine 4.2H, Estimat Glomerular Filtration Rate 17.2, Glucose Level 247H, Uric Acid 5.4, Calcium Level 7.8L, Phosphorus Level 2.7, Total Bilirubin 0.2, Aspartate Amino Transf (AST/SGOT) 17, Alanine Aminotransferase (ALT/SGPT) 30, Alkaline Phosphatase 139H, C-Reactive Protein, Quantitative < 0.4, Pro-B-Type Natriuretic Peptide 2675H, Total Protein 5.1L, Albumin 2.0L, Globulin 3.1, Albumin/Globulin Ratio 0.6L Height (Feet): 5 Height (Inches): 9.00 Weight (Pounds): 228 General Appearance: no apparent distress, lethargic Respiratory/Chest: decreased breath sounds Abdomen: distended Rene Singh MD Mar 24, 2020 13:36
--- NOTE | 2020-03-24 16:47 | NUR ---
CASE MANAGEMENT:REVIEW 03/24/20 SI: COPD. CHF. AC/CHR RENAL FAILURE 98.1 82 24 135/78 98% ON 2L/NC WBC+20 BUN+89 CR+4.2 IS: IV SOLUMEDROL Q12 LISINOPRIL PO QD HYDRALAZINE PO Q8HRS : TELEMETRY STATUS DCP: FROM [facility] [facility]: OUTPATIENT DIALYSIS HAS BEEN CONFIRMED DISCHARGE ON HOLD D/T WBC
--- NOTE | 2020-03-24 16:50 | NUR ---
DISCHARGE HELD DR WALTER AND DR VASQUEZ DECIDED TO HOLD DISCHARGE DUE TO ELEVATED WBC'S 2 SETS OF BLOOD CULTURES HAVE BEEN ORDERED STILL NEED TO FAX HEP PANEL RESULTS TO [facility] T:[phone] F: [phone] MWF 4:30 PM
--- NOTE | 2020-03-24 19:16 | General Progress Note ---
Subjective ROS Limited/Unobtainable: Yes Allergies: Coded Allergies: PENICILLINS (Verified Allergy, Unknown, 03/06/20) Uncoded Allergies: SEAFOOD (Allergy, Unknown, 03/06/20) Objective Last 24 Hour Vital Signs Date Time Temp Pulse Resp B/P (MAP) Pulse Ox O2 Delivery O2 Flow Rate FiO2 03/24/20 16:00 87 03/24/20 16:00 98.1 82 24 135/78 (97) 98 03/24/20 15:00 98.0 92 03/24/20 12:00 97.7 81 20 116/60 (78) 100 03/24/20 11:01 83 18 98 Nasal Cannula 2.0 28 81 18 97 03/24/20 11:01 97 Nasal Cannula 2.0 28 03/24/20 11:00 97.7 99 03/24/20 09:00 Nasal Cannula 2.0 03/24/20 08:50 110/60 03/24/20 08:00 81 03/24/20 08:00 98.1 81 20 104/57 (73) 92 03/24/20 07:00 98.4 99 03/24/20 06:00 132/74 03/24/20 04:00 98.1 82 18 135/78 (97) 98 03/24/20 04:00 83 03/24/20 03:00 98.7 99 03/24/20 00:00 94 03/24/20 00:00 99.3 94 18 128/68 (88) 98 03/23/20 23:00 98.2 98 03/23/20 21:17 115/63 03/23/20 21:00 Nasal Cannula 2.0 03/23/20 20:00 98.1 93 18 115/63 (80) 97 03/23/20 20:00 89 03/23/20 19:50 95 Nasal Cannula 2.0 28 Intake and Output 03/23/20 03/24/20 19:00 07:00 Intake Total 140 ml Output Total 1200 ml 1100 ml Balance -1060 ml -1100 ml Intake Oral 140 ml Output Urine Total 1200 ml 1100 ml # Voids 3 Laboratory Tests 03/24/20 06:43: White Blood Count 20.1H, Red Blood Count 4.15L, Hemoglobin 11.4L, Hematocrit 36.3L, Mean Corpuscular Volume 87, Mean Corpuscular Hemoglobin 27.5, Mean Corpuscular Hemoglobin Concent 31.5L, Red Cell Distribution Width 14.2, Platelet Count 209, Mean Platelet Volume 9.3, Neutrophils (%) (Auto) 94.5H, Lymphocytes (%) (Auto) 2.9L, Monocytes (%) (Auto) 0.5L, Eosinophils (%) (Auto) 0.0, Basophils (%) (Auto) 0.0, Sodium Level 134L, Potassium Level 4.0, Chloride Level 102, Carbon Dioxide Level 25, Anion Gap 7, Blood Urea Nitrogen 89H, Creatinine 4.2H, Estimat Glomerular Filtration Rate 17.2, Glucose Level 247H, Uric Acid 5.4, Calcium Level 7.8L, Phosphorus Level 2.7, Total Bilirubin 0.2, Aspartate Amino Transf (AST/SGOT) 17, Alanine Aminotransferase (ALT/SGPT) 30, Alkaline Phosphatase 139H, C-Reactive Protein, Quantitative < 0.4, Pro-B-Type Natriuretic Peptide 2675H, Total Protein 5.1L, Albumin 2.0L, Globulin 3.1, Albumin/Globulin Ratio 0.6L 03/24/20 15:58: POC Whole Blood Glucose 180H Height (Feet): 5 Height (Inches): 9.00 Weight (Pounds): 228 Assessment/Plan Problem List: (1) COPD (chronic obstructive pulmonary disease) ICD Codes: J44.9 - Chronic obstructive pulmonary disease, unspecified SNOMED: 08859650 Qualifiers: Qualified Codes: J44.1 - Chronic obstructive pulmonary disease with (acute) exacerbation (2) CHF (congestive heart failure) ICD Codes: I50.9 - Heart failure, unspecified SNOMED: 01316290 Qualifiers: Qualified Codes: I50.9 - Heart failure, unspecified (3) Hypoxia ICD Codes: R09.02 - Hypoxemia SNOMED: 377257115 (4) Renal failure (ARF), acute on chronic ICD Codes: N17.9 - Acute kidney failure, unspecified; N18.9 - Chronic kidney disease, unspecified SNOMED: 789346161 Qualifiers: Qualified Codes: N17.9 - Acute kidney failure, unspecified; N18.4 - Chronic kidney disease, stage 4 (severe) Status: progressing Assessment/Plan: unable to dc due to worsening leukocytosis despite steroid taper afebrile discuss with dr rosenbaum copd improving chf exacerbation improving John Chavez MD Mar 24, 2020 19:16
--- NOTE | 2020-03-24 19:17 | NUR ---
NURSE HAND-OFF REPORT: Important Events on Shift:[HD, discharge held, blood cultures pending] Patient Status: [Stable, FULL CODE] Diet: [renal] Pending Orders: [blood cultures] Pending Results/Labs:[] Pending MD notification:[] Latest Vital Signs: Temperature 98.1 , Pulse 87 , B/P 135 /78 , Respiratory Rate 24 , O2 SAT 98 , Nasal Cannula, O2 Flow Rate 2.0 . Vital Sign Comment: [] EKG Rhythm: SR w/ BBB Rhythm change?: N MD Notified?: N - MD Response: Latest Ryan Fall Score: 60 Fall Risk: High Risk Safety Measures: Call light Within Reach, Bed Alarm Zone 2, Side Rails Side Rails x3, Bed position Low and Locked. Fall Precautions: Yellow Socks Yellow Gown Door Sign Patient Fall Education Report given to [Reji TAMAYO].
--- NOTE | 2020-03-24 19:25 | NUR ---
NURSE NOTES: Pt received from Stewart TAMAYO. Pt is resting comfortably in bed side laying. No acute distress noted. No pain is reported at this time. Pt is A/Ox4. Jolene is currently getting dialysis at this time. Blood cultured have been given to the dialysis nurse. Pt has left upper arm 20G patent flushed and locked. No bleeding or erythema noted. Bed is locked in lowest position and call light is within reach. Will continue to monitor.
[2020-03-24] MEDS ORDERED: LORazepam 1mg tab ORAL PRN (20:15)
[2020-03-24] MEDS: Dyna-Hex 2% Top Sol 2oz TOPIC SCH (22:46)
--- NOTE | 2020-03-24 23:45 | Psychiatric Progress Note ---
Psychiatry Progress Note Psychiatry Progress Note Subjective the pt is having anxiety and irritable unstable gait he fell today. sleep is adequate Medications Current Medications Medications (Trade) Dose Ordered Sig/Melissa Route PRN Reason Start Time Stop Time Status Last Admin Dose Admin Allopurinol (allopurinoL) 300 mg DAILY ORAL 03/09/20 14:30 04/08/20 14:29 03/24/20 08:48 Budesonide (Pulmicort) 0.25 mg EVERY 12 HOURS HHN 03/06/20 21:00 06/04/20 20:59 03/24/20 20:08 Chlorhexidine Gluconate (Cherry-Hex 2%) 1 applic DAILY@1999 TOPIC 03/17/20 20:00 06/15/20 19:59 03/24/20 22:46 Citalopram Hydrobromide (CeleXA) 20 mg DAILY ORAL 03/10/20 09:00 04/09/20 08:59 03/24/20 08:46 Clonidine HCl (Catapres Tab) 0.1 mg Q4H PRN ORAL SBP>170 03/06/20 16:15 06/04/20 16:14 Dextrose (Dextrose 50%) 25 ml Q30M PRN IV Hypoglycemia 03/13/20 16:30 06/11/20 16:29 Dextrose (Dextrose 50%) 50 ml Q30M PRN IV Hypoglycemia 03/13/20 16:30 06/11/20 16:29 Diphenhydramine HCl (Benadryl) 50 mg Q6H PRN ORAL Itching 03/06/20 19:00 04/05/20 18:59 03/22/20 22:22 Docusate Sodium (Colace) 100 mg THREE TIMES A DAY ORAL 03/08/20 13:00 04/07/20 12:59 03/24/20 17:14 Guaifenesin/ Dextromethorphan (Robitussin DM Syrup) 10 ml Q4H PRN ORAL For Cough 03/06/20 19:00 06/04/20 18:59 03/12/20 00:51 Heparin Sodium (Porcine) (Heparin 5000 units/ml) 5,000 units BID SUBQ 03/07/20 09:00 04/21/20 08:59 03/24/20 17:16 Hydralazine HCl (Apresoline) 50 mg Q8HR ORAL 03/11/20 14:00 06/04/20 17:59 03/24/20 06:00 Insulin Aspart (NovoLOG) BEFORE MEALS AND HS SUBQ 03/13/20 16:30 06/11/20 16:29 03/24/20 17:11 Insulin Aspart (NovoLOG) 10 units NOVOTIAC SUBQ 03/24/20 11:50 06/13/20 06:29 03/24/20 17:13 Insulin Detemir (Levemir) 14 units BID SUBQ 03/24/20 09:00 06/13/20 08:59 03/24/20 17:17 Lisinopril (ZestriL) 5 mg DAILY ORAL 03/17/20 09:00 04/16/20 08:59 03/24/20 08:50 Lorazepam (Ativan 2mg/ml 1ml) 1 mg Q4H PRN IV Agitation 03/19/20 22:15 03/26/20 22:14 Methylprednisolone Sodium Succinate (Solu-MEDROL) 40 mg Q12H IVP 03/23/20 18:00 03/25/20 06:01 03/24/20 18:23 Pantoprazole (Protonix) 40 mg EVERY 12 HOURS ORAL 03/08/20 21:00 04/07/20 20:59 03/24/20 22:48 Phenol/Menthol (Chloraseptic) 1 spray TIDPRN PRN ORAL For Pain 03/06/20 19:00 06/04/20 18:59 Prednisone (predniSONE) 10 mg DAILY ORAL 03/29/20 09:00 03/29/20 09:01 Prednisone (predniSONE) 20 mg DAILY ORAL 03/28/20 09:00 03/28/20 09:01 Prednisone (predniSONE) 30 mg DAILY ORAL 03/27/20 09:00 03/27/20 09:01 Prednisone (predniSONE) 40 mg DAILY ORAL 03/26/20 09:00 03/26/20 09:01 Sevelamer Carbonate (Renvela) 1,600 mg THREE TIMES A DAY ORAL 03/09/20 09:00 06/07/20 08:59 03/24/20 17:14 Tamsulosin HCl (Flomax) 0.4 mg BID ORAL 03/08/20 11:30 04/07/20 11:29 03/24/20 17:15 Vitamin B Complex (Vitamin B Complex) 1 tab DAILY ORAL 03/07/20 09:00 06/05/20 08:59 03/24/20 08:48 Neurological/Psychiatric: Reports: anxiety, depressed, emotional problems Allergies: Coded Allergies: PENICILLINS (Verified Allergy, Unknown, 03/06/20) Uncoded Allergies: SEAFOOD (Allergy, Unknown, 03/06/20) Objective Data Height (Feet): 5 Height (Inches): 9.00 Weight (Pounds): 228 General Appearance: no apparent distress, lethargic Mental Status Exam - Mood: anxious Additional Comments: alert and oriented times self, place, and situation. Mood is anxious. Affect is blunted, congruent with mood. Thought process is linear and goal oriented. Thought content, no suicidal or homicidal ideation. Cognition is intact. Insight and judgment is fair. Assessment/Plan Atalissa I: ASSESSMENT: Atalissa I Anxiety disorder. Atalissa II Deferred. Atalissa III As above. Atalissa IV Low. Atalissa V 50. PLAN: 1. We will start the patient on Celexa 20 mg in the morning. 2. Ativan as needed. 3. Provide the patient with reality orientation, supportive therapy, and medication. 4. the pt has capacity to make decisions Status: progressing Status Narrative ASSESSMENT: Atalissa I Anxiety disorder. Atalissa II Deferred. Atalissa III As above. Atalissa IV Low. Atalissa V 50. PLAN: 1. We will start the patient on Celexa 20 mg in the morning. 2. Ativan as needed. 3. Provide the patient with reality orientation, supportive therapy, and medication. 4. the pt has capacity to make decisions Assessment/Plan: ASSESSMENT: Atalissa I Anxiety disorder. Atalissa II Deferred. Atalissa III As above. Atalissa IV Low. Atalissa V 50. PLAN: 1. We will start the patient on Celexa 20 mg in the morning. 2. Ativan as needed. 3. Provide the patient with reality orientation, supportive therapy, and medication. 4. the pt has capacity to make decisions Kwasi Diaz MD Mar 24, 2020 23:45
[2020-03-25] VITALS: BP 110/82
[2020-03-25 04:00] VITALS: BP 127/68
[2020-03-25] MEDS: HydrALAZINE 50mg tab ORAL SCH ×2 (06:00→13:50)
[2020-03-25] MEDS: Solu-MEDROL 40mg Inj IVP SCH (06:09)
--- NOTE | 2020-03-25 06:22 | General Progress Note ---
Subjective ROS Limited/Unobtainable: Yes Allergies: Coded Allergies: PENICILLINS (Verified Allergy, Unknown, 03/06/20) Uncoded Allergies: SEAFOOD (Allergy, Unknown, 03/06/20) Subjective events noted glucose values improved and insulin dose adjustments yesterday on Prednisone Item Value Date Time Bedside Blood Glucose 119 mg/dl 03/24/20 2200 Bedside Blood Glucose 180 mg/dl H 03/24/20 1717 Bedside Blood Glucose 231 mg/dl H 03/24/20 1232 Bedside Blood Glucose 269 mg/dl H 03/24/20 0858 Bedside Blood Glucose 269 mg/dl H 03/24/20 0630 Objective Last 24 Hour Vital Signs Date Time Temp Pulse Resp B/P (MAP) Pulse Ox O2 Delivery O2 Flow Rate FiO2 03/25/20 06:00 109/72 03/25/20 04:00 77 03/25/20 04:00 75 82 82 03/25/20 00:00 97.8 82 20 110/82 (91) 99 03/25/20 00:00 76 03/24/20 22:00 110/82 03/24/20 21:00 Nasal Cannula 2.0 03/24/20 20:10 98 Nasal Cannula 2.0 28 03/24/20 20:09 80 16 98 Nasal Cannula 2.0 28 82 18 94 03/24/20 20:00 91 03/24/20 20:00 98.3 88 22 126/62 (83) 98 03/24/20 16:00 87 03/24/20 16:00 98.1 82 24 135/78 (97) 98 03/24/20 15:00 98.0 92 03/24/20 12:00 97.7 81 20 116/60 (78) 100 03/24/20 11:01 83 18 98 Nasal Cannula 2.0 28 81 18 97 03/24/20 11:01 97 Nasal Cannula 2.0 28 03/24/20 11:00 97.7 99 03/24/20 09:00 Nasal Cannula 2.0 03/24/20 08:50 110/60 03/24/20 08:00 81 03/24/20 08:00 98.1 81 20 104/57 (73) 92 03/24/20 07:00 98.4 99 Intake and Output 03/24/20 03/25/20 19:00 07:00 Intake Total 500 ml Balance 500 ml Intake Oral 500 ml # Voids 2 Laboratory Tests 03/24/20 06:43: White Blood Count 20.1H, Red Blood Count 4.15L, Hemoglobin 11.4L, Hematocrit 36.3L, Mean Corpuscular Volume 87, Mean Corpuscular Hemoglobin 27.5, Mean Corpuscular Hemoglobin Concent 31.5L, Red Cell Distribution Width 14.2, Platelet Count 209, Mean Platelet Volume 9.3, Neutrophils (%) (Auto) 94.5H, Lymphocytes (%) (Auto) 2.9L, Monocytes (%) (Auto) 0.5L, Eosinophils (%) (Auto) 0.0, Basophils (%) (Auto) 0.0, Sodium Level 134L, Potassium Level 4.0, Chloride Level 102, Carbon Dioxide Level 25, Anion Gap 7, Blood Urea Nitrogen 89H, Creatinine 4.2H, Estimat Glomerular Filtration Rate 17.2, Glucose Level 247H, Uric Acid 5.4, Calcium Level 7.8L, Phosphorus Level 2.7, Total Bilirubin 0.2, Aspartate Amino Transf (AST/SGOT) 17, Alanine Aminotransferase (ALT/SGPT) 30, Alkaline Phosphatase 139H, C-Reactive Protein, Quantitative < 0.4, Pro-B-Type Natriuretic Peptide 2675H, Total Protein 5.1L, Albumin 2.0L, Globulin 3.1, Albumin/Globulin Ratio 0.6L 03/24/20 15:58: POC Whole Blood Glucose 180H 03/24/20 20:53: POC Whole Blood Glucose 69L 03/25/20 05:52: POC Whole Blood Glucose 139H Height (Feet): 5 Height (Inches): 9.00 Weight (Pounds): 228 General Appearance: no apparent distress Neck: normal alignment Cardiovascular: normal rate Respiratory/Chest: decreased breath sounds Abdomen: normal bowel sounds Pelvis: normal external exam Objective Current Medications Medications (Trade) Dose Ordered Sig/Melisas Route PRN Reason Start Time Stop Time Status Last Admin Dose Admin Allopurinol (allopurinoL) 300 mg DAILY ORAL 03/09/20 14:30 04/08/20 14:29 03/24/20 08:48 Budesonide (Pulmicort) 0.25 mg EVERY 12 HOURS HHN 03/06/20 21:00 06/04/20 20:59 03/24/20 20:08 Chlorhexidine Gluconate (Cherry-Hex 2%) 1 applic DAILY@2000 TOPIC 03/17/20 20:00 06/15/20 19:59 03/24/20 22:46 Citalopram Hydrobromide (CeleXA) 20 mg DAILY ORAL 03/10/20 09:00 04/09/20 08:59 03/24/20 08:46 Clonidine HCl (Catapres Tab) 0.1 mg Q4H PRN ORAL SBP>170 03/06/20 16:15 06/04/20 16:14 Dextrose (Dextrose 50%) 25 ml Q30M PRN IV Hypoglycemia 03/13/20 16:30 06/11/20 16:29 Dextrose (Dextrose 50%) 50 ml Q30M PRN IV Hypoglycemia 03/13/20 16:30 06/11/20 16:29 Diphenhydramine HCl (Benadryl) 50 mg Q6H PRN ORAL Itching 03/06/20 19:00 04/05/20 18:59 03/22/20 22:22 Docusate Sodium (Colace) 100 mg THREE TIMES A DAY ORAL 03/08/20 13:00 04/07/20 12:59 03/24/20 17:14 Guaifenesin/ Dextromethorphan (Robitussin DM Syrup) 10 ml Q4H PRN ORAL For Cough 03/06/20 19:00 06/04/20 18:59 03/12/20 00:51 Heparin Sodium (Porcine) (Heparin 5000 units/ml) 5,000 units BID SUBQ 03/07/20 09:00 04/21/20 08:59 03/24/20 17:16 Hydralazine HCl (Apresoline) 50 mg Q8HR ORAL 03/11/20 14:00 06/04/20 17:59 03/24/20 06:00 Insulin Aspart (NovoLOG) BEFORE MEALS AND HS SUBQ 03/13/20 16:30 06/11/20 16:29 03/24/20 17:11 Insulin Aspart (NovoLOG) 10 units NOVOTIAC SUBQ 03/24/20 11:50 06/13/20 06:29 03/24/20 17:13 Insulin Detemir (Levemir) 14 units BID SUBQ 03/24/20 09:00 06/13/20 08:59 03/24/20 17:17 Lisinopril (ZestriL) 5 mg DAILY ORAL 03/17/20 09:00 04/16/20 08:59 03/24/20 08:50 Lorazepam (Ativan 2mg/ml 1ml) 1 mg Q4H PRN IV Agitation 03/19/20 22:15 03/26/20 22:14 Pantoprazole (Protonix) 40 mg EVERY 12 HOURS ORAL 03/08/20 21:00 04/07/20 20:59 03/24/20 22:48 Phenol/Menthol (Chloraseptic) 1 spray TIDPRN PRN ORAL For Pain 03/06/20 19:00 06/04/20 18:59 Prednisone (predniSONE) 10 mg DAILY ORAL 03/29/20 09:00 03/29/20 09:01 Prednisone (predniSONE) 20 mg DAILY ORAL 03/28/20 09:00 03/28/20 09:01 Prednisone (predniSONE) 30 mg DAILY ORAL 03/27/20 09:00 03/27/20 09:01 Prednisone (predniSONE) 40 mg DAILY ORAL 03/26/20 09:00 03/26/20 09:01 Sevelamer Carbonate (Renvela) 1,600 mg THREE TIMES A DAY ORAL 03/09/20 09:00 06/07/20 08:59 03/24/20 17:14 Tamsulosin HCl (Flomax) 0.4 mg BID ORAL 03/08/20 11:30 04/07/20 11:29 03/24/20 17:15 Vitamin B Complex (Vitamin B Complex) 1 tab DAILY ORAL 03/07/20 09:00 06/05/20 08:59 03/24/20 08:48 Assessment/Plan Problem List: (1) Hyperglycemia ICD Codes: R73.9 - Hyperglycemia, unspecified SNOMED: 87017975 (2) COPD (chronic obstructive pulmonary disease) ICD Codes: J44.9 - Chronic obstructive pulmonary disease, unspecified SNOMED: 08254266 Qualifiers: Qualified Codes: J44.1 - Chronic obstructive pulmonary disease with (acute) exacerbation (3) CHF (congestive heart failure) ICD Codes: I50.9 - Heart failure, unspecified SNOMED: 00767198 Qualifiers: Qualified Codes: I50.9 - Heart failure, unspecified (4) Hypoxia ICD Codes: R09.02 - Hypoxemia SNOMED: 210362777 (5) Renal failure (ARF), acute on chronic ICD Codes: N17.9 - Acute kidney failure, unspecified; N18.9 - Chronic kidney disease, unspecified SNOMED: 545274763 Qualifiers: Qualified Codes: N17.9 - Acute kidney failure, unspecified; N18.4 - Chronic kidney disease, stage 4 (severe) (6) HTN (hypertension) ICD Codes: I10 - Essential (primary) hypertension SNOMED: 95300500 Status: progressing Assessment/Plan: continue Levemir 14 units bid continue Novolog 10 units ac tid continue SSI John Taylor MD Mar 25, 2020 06:22
[2020-03-25] MEDS: NovoLOG Insulin Flexpen SUBQ SCH ×4 (06:30→12:06)
[2020-03-25 07:31] LABS: MEAN CORPUSCULAR VOLUME 82 FL (80-99); PLATELET COUNT 206 K/UL (150-450); RED BLOOD COUNT 4.01 M/UL (4.70-6.10); RED CELL DISTRIBUTION WIDTH 14.8 % (11.6-14.8); WHITE BLOOD COUNT 20.4 K/UL (4.8-10.8)
[2020-03-25 07:33] LABS: ALANINE AMINOTRANSFERASE 29 U/L (12-78); ALBUMIN 1.9 G/DL (3.4-5.0); ALBUMIN/GLOBULIN RATIO 0.6 (1.0-2.7); ALKALINE PHOSPHATASE 91 U/L (46-116); ANION GAP 3 mmol/L (5-15); ASPARTATE AMINO TRANSFERASE 15 U/L (15-37); BILIRUBIN,TOTAL 0.2 MG/DL (0.2-1.0); BLOOD UREA NITROGEN 60 mg/dL (7-18); CALCIUM 7.7 MG/DL (8.5-10.1); CARBON DIOXIDE 28 MMOL/L (21-32); CHLORIDE 102 MMOL/L (98-107); CREATININE 3.1 MG/DL (0.55-1.30); PHOSPHORUS 3.4 MG/DL (2.5-4.9); POTASSIUM 4.2 MMOL/L (3.5-5.1); SODIUM 133 MMOL/L (136-145)
[2020-03-25 07:40] VITALS: BP 109/72
--- NOTE | 2020-03-25 07:48 | NUR ---
NURSE HAND-OFF REPORT: Important Events on Shift: Orthostatic BP Qshift. Patient had dialysis in the PM 2.1L was removed. Patient refused standing VS in the AM Patient Status: No acute distress Diet: Renal Pending Orders: Pending Results/Labs: Pending MD notification: Latest Vital Signs: Temperature 98.1 , Pulse 75 , B/P 109 /72 , Respiratory Rate 20 , O2 SAT 95 , Nasal Cannula, O2 Flow Rate 2.0 . Vital Sign Comment: EKG Rhythm: Sinus Rhythm Rhythm change?: N MD Notified?: N - MD Response: Latest Ryan Fall Score: 60 Fall Risk: High Risk Safety Measures: Call light Within Reach, Bed Alarm Zone 2, Side Rails Side Rails x3, Bed position Low and Locked. Fall Precautions: Yellow Socks Yellow Gown Door Sign Patient Fall Education Report given to Rebekah TAMAYO .
--- NOTE | 2020-03-25 07:49 | NUR ---
NURSE NOTES: Received report from Shanna/RN, Observed patient awake, sitting up in bed eating breakfast. Able to make needs known, Denies pain at this time. On 2L nasal canula, no acute distress/SOB noted. Bed in low position and locked, Call light within reach, Bed alarm is on, side rails up x3. Encouraged to use call light when needed. Will Continue plan of care.
[2020-03-25 08:00] VITALS: BP 150/79
--- NOTE | 2020-03-25 08:16 | NUR ---
RADIOLOGY: PCXR COMPLETED 0800HRS. NF
[2020-03-25] MEDS: Citalopram Hydrobromide 10mg Tab ORAL SCH (09:10)
[2020-03-25] MEDS: Lisinopril 2.5mg tab ORAL SCH (09:10)
[2020-03-25] MEDS: Docusate 100mg cap ORAL SCH ×2 (09:10→12:09)
[2020-03-25] MEDS: Tamsulosin 0.4mg cap ORAL SCH (09:10)
[2020-03-25] MEDS: Vitamin B Complex Tab ORAL SCH (09:10)
[2020-03-25] MEDS: Levemir Flexpen SUBQ SCH (09:12)
[2020-03-25] MEDS: Heparin 5000 units/ml inj SUBQ SCH (09:12)
--- NOTE | 2020-03-25 10:36 | Nephrology Progress Note ---
Assessment/Plan Problem List: (1) Renal failure (ARF), acute on chronic (2) Hypoxia (3) CHF (congestive heart failure) (4) COPD (chronic obstructive pulmonary disease) (5) HTN (hypertension) (6) Hyperkalemia Assessment Acute renal failure Possible underlying chronic kidney disease Hyperkalemia Respiratory failure: Combination of diastolic CHF, COPD, possible pneumonia Hypertension Diabetes mellitus Negative COVID-19 rapid test Plan March 25: Patient dialyzed yesterday. Due for dialysis tomorrow. Remains on tapering p.o. prednisone. Medication list reviewed. Leukocytosis persists. Blood culture results pending. March 24: Patient due for dialysis today. Labs reviewed. White blood cell 20,000. Suggest surveillance blood cultures. Patient continues to be on tapering steroids March 23: Last dialysis yesterday. Labs reviewed. Medication list reviewed. Appears stable. Will check lab tomorrow. Dialysis as needed. Observe patient on tapering dose of oral steroids. March 22: Dialyzed this morning. Labs reviewed. Leukocytosis persists. Co ntinue per consultants. March 21: Patient in [facility]. Dialyzed yesterday. Clinically improved. ABG improved. Labs and medication list improved. Will aim to dialyze again tomorrow. March 20: Patient in [place]. Dialyzed today. On BiPAP now. ABG improved. Discussed with . Continue to optimize pulmonary status and monitor renal parameters and dialysis as needed. Discussed with RN. Leukocytosis worsened. Continue per ID advice March 19: Labs reviewed. Dialyzed yesterday. Leukocytosis worsened. Continue per ID. Patient encephalopathic. Attempt dialysis tomorrow. March 18: Labs reviewed. Patient has a tunneled catheter. Will dialyze today. Continue placement process for outpatient hemodialysis. Discussed with RN. March 17: Labs reviewed. Serum creatinine rising. Patient needs to be continue on dialysis. Regretfully he pulled out his femoral dialysis catheter. Discussed with RN. Patient need to be consented for placement of tunneled dialysis catheter for continued dialysis. If needed, psychiatric clearance regarding if the patient is mentally fit to make decisions. March 16: Last hemodialysis March 14. Clinically doing well. Serum creatinine rising. Today creatinine is 3.7. Will check labs tomorrow if further rise of creatinine will arrange for dialysis and placement of the catheter for the outpatient dialysis due to acute on chronic renal failure. March 15: Last HD 03/14. Doing well. continue to monitor renal parameters . Discussed with Dr Caceres. Continue to rest March 14: Dialyzed March 12. Serum creatinine today 4.2. Will do dialysis and ultrafiltration today. Continue per pulmonary. March 13: Dialyzed yesterday. Serum creatinine 3.8 unchanged. Continue per pulmonary. Hemodialysis as needed. Continue to monitor renal parameters. March 12: Due for dialysis today. Discussed with pulmonary, patient due for right pleural effusion tap today. Labs reviewed. Continue per current management. Continue to monitor renal parameters. March 11: Patient was dialyzed 2 days in a row with total of 7 L fluid removal. Today's ABG still suggestive of hypoxia. Patient uncooperative and does not keep the oxygen mask on. Labs reviewed. Renal parameters reasonable. Will attempt dialysis again tomorrow. Will discuss with Dr. Caceres with regard to possible initiation of steroid's, if underlying COPD is a major cause for the current pulmonary state. March 10: Patient was dialyzed yesterday. Over 3 L ultrafiltration done. Patient will be dialyzed again today with ultrafiltration. Continue to monitor pulmonary status. Discussed with . March 09: Seen this morning during hemodialysis. Patient has a femoral catheter for dialysis access. Aim to ultrafiltrate 3 to 4 L. Postdialysis will stop IV Lasix. We will continue to monitor urine output and renal parameters. Phos binders ordered. Per orders. Ultrasound results noted. Previously: Since diuretic treatment is not working, and the patient is volume overloaded and has difficulty breathing with lower extremity edema and possible ascites will aim to dialyze and do ultrafiltration. Adjust blood pressure medication. Kidney ultrasound, results noted Flomax twice daily Adjust the diet. Change to renal Pulmonary toilet Afterload preload reduction Avoid nephrotoxic's Subjective ROS Limited/Unobtainable: No Constitutional: Reports: malaise Objective Objective Last 24 Hour Vital Signs Date Time Temp Pulse Resp B/P (MAP) Pulse Ox O2 Delivery O2 Flow Rate FiO2 03/25/20 09:10 150/79 03/25/20 07:40 98.1 95 03/25/20 06:00 109/72 03/25/20 04:00 98.1 75 20 127/68 (87) 95 03/25/20 04:00 77 03/25/20 04:00 75 82 82 03/25/20 00:00 97.8 82 20 110/82 (91) 99 03/25/20 00:00 76 03/24/20 22:00 110/82 03/24/20 21:00 Nasal Cannula 2.0 03/24/20 20:10 98 Nasal Cannula 2.0 28 03/24/20 20:09 80 16 98 Nasal Cannula 2.0 28 82 18 94 03/24/20 20:00 91 03/24/20 20:00 98.3 88 22 126/62 (83) 98 03/24/20 16:00 87 03/24/20 16:00 98.1 82 24 135/78 (97) 98 03/24/20 15:00 98.0 92 03/24/20 12:00 97.7 81 20 116/60 (78) 100 03/24/20 11:01 83 18 98 Nasal Cannula 2.0 28 81 18 97 03/24/20 11:01 97 Nasal Cannula 2.0 28 03/24/20 11:00 97.7 99 Intake and Output 03/24/20 03/25/20 19:00 07:00 Intake Total 500 ml Output Total 400 ml Balance 500 ml -400 ml Intake Oral 500 ml Output Urine Total 400 ml # Voids 2 2 Current Medications Medications (Trade) Dose Ordered Sig/Melissa Route PRN Reason Start Time Stop Time Status Last Admin Dose Admin Allopurinol (allopurinoL) 300 mg DAILY ORAL 03/09/20 14:30 04/08/20 14:29 03/25/20 09:10 Budesonide (Pulmicort) 0.25 mg EVERY 12 HOURS HHN 03/06/20 21:00 06/04/20 20:59 03/24/20 20:08 Chlorhexidine Gluconate (Cherry-Hex 2%) 1 applic DAILY@1999 TOPIC 03/17/20 20:00 06/15/20 19:59 03/24/20 22:46 Citalopram Hydrobromide (CeleXA) 20 mg DAILY ORAL 03/10/20 09:00 04/09/20 08:59 03/25/20 09:10 Clonidine HCl (Catapres Tab) 0.1 mg Q4H PRN ORAL SBP>170 03/06/20 16:15 06/04/20 16:14 Dextrose (Dextrose 50%) 25 ml Q30M PRN IV Hypoglycemia 03/13/20 16:30 06/11/20 16:29 Dextrose (Dextrose 50%) 50 ml Q30M PRN IV Hypoglycemia 03/13/20 16:30 06/11/20 16:29 Diphenhydramine HCl (Benadryl) 50 mg Q6H PRN ORAL Itching 03/06/20 19:00 04/05/20 18:59 03/22/20 22:22 Docusate Sodium (Colace) 100 mg THREE TIMES A DAY ORAL 03/08/20 13:00 04/07/20 12:59 03/25/20 09:10 Guaifenesin/ Dextromethorphan (Robitussin DM Syrup) 10 ml Q4H PRN ORAL For Cough 03/06/20 19:00 06/04/20 18:59 03/12/20 00:51 Heparin Sodium (Porcine) (Heparin 5000 units/ml) 5,000 units BID SUBQ 03/07/20 09:00 04/21/20 08:59 03/25/20 09:12 Hydralazine HCl (Apresoline) 50 mg Q8HR ORAL 03/11/20 14:00 06/04/20 17:59 03/24/20 06:00 Insulin Aspart (NovoLOG) BEFORE MEALS AND HS SUBQ 03/13/20 16:30 06/11/20 16:29 03/24/20 17:11 Insulin Aspart (NovoLOG) 10 units NOVOTIAC SUBQ 03/24/20 11:50 06/13/20 06:29 03/24/20 17:13 Insulin Detemir (Levemir) 14 units BID SUBQ 03/24/20 09:00 06/13/20 08:59 03/25/20 09:12 Lisinopril (ZestriL) 5 mg DAILY ORAL 03/17/20 09:00 04/16/20 08:59 03/25/20 09:10 Lorazepam (Ativan 2mg/ml 1ml) 1 mg Q4H PRN IV Agitation 03/19/20 22:15 03/26/20 22:14 Pantoprazole (Protonix) 40 mg EVERY 12 HOURS ORAL 03/08/20 21:00 04/07/20 20:59 03/25/20 09:10 Phenol/Menthol (Chloraseptic) 1 spray TIDPRN PRN ORAL For Pain 03/06/20 19:00 06/04/20 18:59 Prednisone (predniSONE) 10 mg DAILY ORAL 03/29/20 09:00 03/29/20 09:01 Prednisone (predniSONE) 20 mg DAILY ORAL 03/28/20 09:00 03/28/20 09:01 Prednisone (predniSONE) 30 mg DAILY ORAL 03/27/20 09:00 03/27/20 09:01 Prednisone (predniSONE) 40 mg DAILY ORAL 03/26/20 09:00 03/26/20 09:01 Sevelamer Carbonate (Renvela) 1,600 mg THREE TIMES A DAY ORAL 03/09/20 09:00 06/07/20 08:59 03/25/20 09:09 Tamsulosin HCl (Flomax) 0.4 mg BID ORAL 03/08/20 11:30 04/07/20 11:29 03/25/20 09:10 Vitamin B Complex (Vitamin B Complex) 1 tab DAILY ORAL 03/07/20 09:00 06/05/20 08:59 03/25/20 09:10 Laboratory Tests 03/24/20 15:58: POC Whole Blood Glucose 180H 03/24/20 20:53: POC Whole Blood Glucose 69L 03/25/20 05:30: White Blood Count 20.4H, Red Blood Count 4.01L, Hemoglobin 11.0L, Hematocrit 33.0L, Mean Corpuscular Volume 82, Mean Corpuscular Hemoglobin 27.3, Mean Corpuscular Hemoglobin Concent 33.3, Red Cell Distribution Width 14.8, Platelet Count 206, Mean Platelet Volume 9.2, Neutrophils (%) (Auto) , Lymphocytes (%) (Auto) , Monocytes (%) (Auto) , Eosinophils (%) (Auto) , Basophils (%) (Auto) , Neutrophils % (Manual) [Pending], Lymphocytes % (Manual) [Pending], Platelet Estimate [Pending], Platelet Morphology [Pending], Sodium Level 133L, Potassium Level 4.2, Chloride Level 102, Carbon Dioxide Level 28, Anion Gap 3L, Blood Urea Nitrogen 60H, Creatinine 3.1H, Estimat Glomerular Filtration Rate 24.4, Glucose Level 146#H, Calcium Level 7.7L, Phosphorus Level 3.4, Magnesium Level 2.0, Total Bilirubin 0.2, Aspartate Amino Transf (AST/SGOT) 15, Alanine A minotransferase (ALT/SGPT) 29, Alkaline Phosphatase 91, C-Reactive Protein, Quantitative < 0.4, Pro-B-Type Natriuretic Peptide 1789H, Total Protein 5.1L, Albumin 1.9L, Globulin 3.2, Albumin/Globulin Ratio 0.6L 03/25/20 05:52: POC Whole Blood Glucose 139H 03/25/20 09:09: POC Whole Blood Glucose [Pending] Height (Feet): 5 Height (Inches): 9.00 Weight (Pounds): 228 General Appearance: no apparent distress Cardiovascular: normal rate Respiratory/Chest: decreased breath sounds Abdomen: soft Rene Singh MD Mar 25, 2020 10:36
--- NOTE | 2020-03-25 10:50 | Infectious Diseases Prog Note ---
Assessment/Plan Assessment/Plan IMPRESSION: 1. Pneumonia.treated 2. COPD. 3. Pulmonary edema. 4. CHF. 5. Diabetes mellitus. 6. Hypertension. 7. ESRD 8. Anemia. 9. BPH. 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 Pleural effusion 12. Leukocytosis, likely steroid related RECOMMENDATION: Observe off antibiotic Taper steroids Agree with discharge Case was D/w primary MD Subjective ROS Limited/Unobtainable: No Constitutional: Reports: no symptoms Respiratory: Reports: no symptoms Cardiovascular: Reports: no symptoms Gastrointestinal/Abdominal: Reports: no symptoms Genitourinary: Reports: no symptoms Allergies: Coded Allergies: PENICILLINS (Verified Allergy, Unknown, 03/06/20) Uncoded Allergies: SEAFOOD (Allergy, Unknown, 03/06/20) Objective Last 24 Hour Vital Signs Date Time Temp Pulse Resp B/P (MAP) Pulse Ox O2 Delivery O2 Flow Rate FiO2 03/25/20 09:10 150/79 03/25/20 09:00 Nasal Cannula 2.0 03/25/20 08:00 97.9 79 20 150/79 (102) 96 03/25/20 08:00 78 03/25/20 07:40 98.1 95 03/25/20 06:00 109/72 03/25/20 04:00 98.1 75 20 127/68 (87) 95 03/25/20 04:00 77 03/25/20 04:00 75 82 82 03/25/20 00:00 97.8 82 20 110/82 (91) 99 03/25/20 00:00 76 03/24/20 22:00 110/82 03/24/20 21:00 Nasal Cannula 2.0 03/24/20 20:10 98 Nasal Cannula 2.0 28 03/24/20 20:09 80 16 98 Nasal Cannula 2.0 28 82 18 94 03/24/20 20:00 91 03/24/20 20:00 98.3 88 22 126/62 (83) 98 03/24/20 16:00 87 03/24/20 16:00 98.1 82 24 135/78 (97) 98 03/24/20 15:00 98.0 92 03/24/20 12:00 97.7 81 20 116/60 (78) 100 03/24/20 11:01 83 18 98 Nasal Cannula 2.0 28 81 18 97 03/24/20 11:01 97 Nasal Cannula 2.0 28 03/24/20 11:00 97.7 99 Height (Feet): 5 Height (Inches): 9.00 Weight (Pounds): 228 General Appearance: no acute distress HEENT: mucous membranes moist Respiratory/Chest: lungs clear Cardiovascular: normal rate, other Abdomen: soft, non tender Extremities: no edema Neurologic/Psychiatric: alert, responsive Laboratory Tests Test 03/24/20 15:58 03/24/20 20:53 03/25/20 05:30 03/25/20 05:52 POC Whole Blood Glucose 180 MG/DL (74-106) H 69 MG/DL (74-106) L 139 MG/DL (74-106) H White Blood Count 20.4 K/UL (4.8-10.8) H Red Blood Count 4.01 M/UL (4.70-6.10) L Hemoglobin 11.0 G/DL (14.2-18.0) L Hematocrit 33.0 % (42.0-52.0) L Mean Corpuscular Volume 82 FL (80-99) Mean Corpuscular Hemoglobin 27.3 PG (27.0-31.0) Mean Corpuscular Hemoglobin Concent 33.3 G/DL (32.0-36.0) Red Cell Distribution Width 14.8 % (11.6-14.8) Platelet Count 206 K/UL (150-450) Mean Platelet Volume 9.2 FL (6.5-10.1) Neutrophils (%) (Auto) % (45.0-75.0) Lymphocytes (%) (Auto) % (20.0-45.0) Monocytes (%) (Auto) % (1.0-10.0) Eosinophils (%) (Auto) % (0.0-3.0) Basophils (%) (Auto) % (0.0-2.0) Neutrophils % (Manual) Pending Lymphocytes % (Manual) Pending Platelet Estimate Pending Platelet Morphology Pending Sodium Level 133 MMOL/L (136-145) L Potassium Level 4.2 MMOL/L (3.5-5.1) Chloride Level 102 MMOL/L (98-107) Carbon Dioxide Level 28 MMOL/L (21-32) Anion Gap 3 mmol/L (5-15) L Blood Urea Nitrogen 60 mg/dL (7-18) H Creatinine 3.1 MG/DL (0.55-1.30) H Estimat Glomerular Filtration Rate 24.4 mL/min (>60) Glucose Level 146 MG/DL (74-106) #H Calcium Level 7.7 MG/DL (8.5-10.1) L Phosphorus Level 3.4 MG/DL (2.5-4.9) Magnesium Level 2.0 MG/DL (1.8-2.4) Total Bilirubin 0.2 MG/DL (0.2-1.0) Aspartate Amino Transf (AST/SGOT) 15 U/L (15-37) Alanine Aminotransferase (ALT/SGPT) 29 U/L (12-78) Alkaline Phosphatase 91 U/L (46-116) C-Reactive Protein, Quantitative < 0.4 mg/dL (0.00-0.90) Pro-B-Type Natriuretic Peptide 1789 pg/mL (0-125) H Total Protein 5.1 G/DL (6.4-8.2) L Albumin 1.9 G/DL (3.4-5.0) L Globulin 3.2 g/dL Albumin/Globulin Ratio 0.6 (1.0-2.7) L Test 03/25/20 09:09 POC Whole Blood Glucose Pending Current Medications Medications (Trade) Dose Ordered Sig/Melissa Route PRN Reason Start Time Stop Time Status Last Admin Dose Admin Allopurinol (allopurinoL) 300 mg DAILY ORAL 03/09/20 14:30 04/08/20 14:29 03/25/20 09:10 Budesonide (Pulmicort) 0.25 mg EVERY 12 HOURS HHN 03/06/20 21:00 06/04/20 20:59 03/24/20 20:08 Chlorhexidine Gluconate (Cherry-Hex 2%) 1 applic DAILY@1999 TOPIC 03/17/20 20:00 06/15/20 19:59 03/24/20 22:46 Citalopram Hydrobromide (CeleXA) 20 mg DAILY ORAL 03/10/20 09:00 04/09/20 08:59 03/25/20 09:10 Clonidine HCl (Catapres Tab) 0.1 mg Q4H PRN ORAL SBP>170 03/06/20 16:15 06/04/20 16:14 Dextrose (Dextrose 50%) 25 ml Q30M PRN IV Hypoglycemia 03/13/20 16:30 06/11/20 16:29 Dextrose (Dextrose 50%) 50 ml Q30M PRN IV Hypoglycemia 03/13/20 16:30 06/11/20 16:29 Diphenhydramine HCl (Benadryl) 50 mg Q6H PRN ORAL Itching 03/06/20 19:00 04/05/20 18:59 03/22/20 22:22 Docusate Sodium (Colace) 100 mg THREE TIMES A DAY ORAL 03/08/20 13:00 04/07/20 12:59 03/25/20 09:10 Guaifenesin/ Dextromethorphan (Robitussin DM Syrup) 10 ml Q4H PRN ORAL For Cough 03/06/20 19:00 06/04/20 18:59 03/12/20 00:51 Heparin Sodium (Porcine) (Heparin 5000 units/ml) 5,000 units BID SUBQ 03/07/20 09:00 04/21/20 08:59 03/25/20 09:12 Hydralazine HCl (Apresoline) 50 mg Q8HR ORAL 03/11/20 14:00 06/04/20 17:59 03/24/20 06:00 Insulin Aspart (NovoLOG) BEFORE MEALS AND HS SUBQ 03/13/20 16:30 06/11/20 16:29 03/24/20 17:11 Insulin Aspart (NovoLOG) 10 units NOVOTIAC SUBQ 03/24/20 11:50 06/13/20 06:29 03/24/20 17:13 Insulin Detemir (Levemir) 14 units BID SUBQ 03/24/20 09:00 06/13/20 08:59 03/25/20 09:12 Lisinopril (ZestriL) 5 mg DAILY ORAL 03/17/20 09:00 04/16/20 08:59 03/25/20 09:10 Lorazepam (Ativan 2mg/ml 1ml) 1 mg Q4H PRN IV Agitation 03/19/20 22:15 03/26/20 22:14 Pantoprazole (Protonix) 40 mg EVERY 12 HOURS ORAL 03/08/20 21:00 04/07/20 20:59 03/25/20 09:10 Phenol/Menthol (Chloraseptic) 1 spray TIDPRN PRN ORAL For Pain 03/06/20 19:00 06/04/20 18:59 Prednisone (predniSONE) 10 mg DAILY ORAL 03/29/20 09:00 03/29/20 09:01 Prednisone (predniSONE) 20 mg DAILY ORAL 03/28/20 09:00 03/28/20 09:01 Prednisone (predniSONE) 30 mg DAILY ORAL 03/27/20 09:00 03/27/20 09:01 Prednisone (predniSONE) 40 mg DAILY ORAL 03/26/20 09:00 03/26/20 09:01 Sevelamer Carbonate (Renvela) 1,600 mg THREE TIMES A DAY ORAL 03/09/20 09:00 06/07/20 08:59 03/25/20 09:09 Tamsulosin HCl (Flomax) 0.4 mg BID ORAL 03/08/20 11:30 04/07/20 11:29 03/25/20 09:10 Vitamin B Complex (Vitamin B Complex) 1 tab DAILY ORAL 03/07/20 09:00 06/05/20 08:59 03/25/20 09:10 Brett Pleitez MD Mar 25, 2020 10:50
--- NOTE | 2020-03-25 10:58 | Pulmonology Progress Note ---
Subjective ROS Limited/Unobtainable: No Interval Events: Now on nasal oxygen. Constitutional: Reports: no symptoms HEENT: Repors: no symptoms Respiratory: Reports: no symptoms Cardiovascular: Reports: no symptoms Gastrointestinal/Abdominal: Reports: no symptoms Genitourinary: Reports: no symptoms Allergies: Coded Allergies: PENICILLINS (Verified Allergy, Unknown, 03/06/20) Uncoded Allergies: SEAFOOD (Allergy, Unknown, 03/06/20) All Systems: reviewed and negative except above Objective Last 24 Hour Vital Signs Date Time Temp Pulse Resp B/P (MAP) Pulse Ox O2 Delivery O2 Flow Rate FiO2 03/25/20 09:10 150/79 03/25/20 09:00 Nasal Cannula 2.0 03/25/20 08:00 97.9 79 20 150/79 (102) 96 03/25/20 08:00 78 03/25/20 07:40 98.1 95 03/25/20 06:00 109/72 03/25/20 04:00 98.1 75 20 127/68 (87) 95 03/25/20 04:00 77 03/25/20 04:00 75 82 82 03/25/20 00:00 97.8 82 20 110/82 (91) 99 03/25/20 00:00 76 03/24/20 22:00 110/82 03/24/20 21:00 Nasal Cannula 2.0 03/24/20 20:10 98 Nasal Cannula 2.0 28 03/24/20 20:09 80 16 98 Nasal Cannula 2.0 28 82 18 94 03/24/20 20:00 91 03/24/20 20:00 98.3 88 22 126/62 (83) 98 03/24/20 16:00 87 03/24/20 16:00 98.1 82 24 135/78 (97) 98 03/24/20 15:00 98.0 92 03/24/20 12:00 97.7 81 20 116/60 (78) 100 03/24/20 11:01 83 18 98 Nasal Cannula 2.0 28 81 18 97 03/24/20 11:01 97 Nasal Cannula 2.0 28 03/24/20 11:00 97.7 99 Intake and Output 03/24/20 03/25/20 19:00 07:00 Intake Total 500 ml Output Total 400 ml Balance 500 ml -400 ml Intake Oral 500 ml Output Urine Total 400 ml # Voids 2 2 General Appearance: no acute distress HEENT: normocephalic Respiratory: chest wall non-tender, decreased breath sounds Cardiovascular: normal peripheral pulses, normal rate Abdomen: normal bowel sounds Laboratory Tests 03/24/20 15:58: POC Whole Blood Glucose 180H 03/24/20 20:53: POC Whole Blood Glucose 69L 03/25/20 05:30: White Blood Count 20.4H, Red Blood Count 4.01L, Hemoglobin 11.0L, Hematocrit 33.0L, Mean Corpuscular Volume 82, Mean Corpuscular Hemoglobin 27.3, Mean Corpuscular Hemoglobin Concent 33.3, Red Cell Distribution Width 14.8, Platelet Count 206, Mean Platelet Volume 9.2, Neutrophils (%) (Auto) , Lymphocytes (%) (Auto) , Monocytes (%) (Auto) , Eosinophils (%) (Auto) , Basophils (%) (Auto) , Differential Total Cells Counted 100, Neutrophils % (Manual) 96H, Lymphocytes % (Manual) 2L, Monocytes % (Manual) 2, Eosinophils % (Manual) 0, Basophils % (Man ual) 0, Band Neutrophils 0, Platelet Estimate Adequate, Platelet Morphology Normal, Anisocytosis 1+, Sodium Level 133L, Potassium Level 4.2, Chloride Level 102, Carbon Dioxide Level 28, Anion Gap 3L, Blood Urea Nitrogen 60H, Creatinine 3.1H, Estimat Glomerular Filtration Rate 24.4, Glucose Level 146#H, Calcium Level 7.7L, Phosphorus Level 3.4, Magnesium Level 2.0, Total Bilirubin 0.2, Aspartate Amino Transf (AST/SGOT) 15, Alanine Aminotransferase (ALT/SGPT) 29, Alkaline Phosphatase 91, C-Reactive Protein, Quantitative < 0.4, Pro-B-Type Natriuretic Peptide 1789H, Total Protein 5.1L, Albumin 1.9L, Globulin 3.2, Albumin/Globulin Ratio 0.6L 03/25/20 05:52: POC Whole Blood Glucose 139H 03/25/20 09:09: POC Whole Blood Glucose [Pending] Current Medications Medications (Trade) Dose Ordered Sig/Melissa Route PRN Reason Start Time Stop Time Status Last Admin Dose Admin Allopurinol (allopurinoL) 300 mg DAILY ORAL 03/09/20 14:30 04/08/20 14:29 03/25/20 09:10 Budesonide (Pulmicort) 0.25 mg EVERY 12 HOURS HHN 03/06/20 21:00 06/04/20 20:59 03/24/20 20:08 Chlorhexidine Gluconate (Cherry-Hex 2%) 1 applic DAILY@1999 TOPIC 03/17/20 20:00 06/15/20 19:59 03/24/20 22:46 Citalopram Hydrobromide (CeleXA) 20 mg DAILY ORAL 03/10/20 09:00 04/09/20 08:59 03/25/20 09:10 Clonidine HCl (Catapres Tab) 0.1 mg Q4H PRN ORAL SBP>170 03/06/20 16:15 06/04/20 16:14 Dextrose (Dextrose 50%) 25 ml Q30M PRN IV Hypoglycemia 03/13/20 16:30 06/11/20 16:29 Dextrose (Dextrose 50%) 50 ml Q30M PRN IV Hypoglycemia 03/13/20 16:30 06/11/20 16:29 Diphenhydramine HCl (Benadryl) 50 mg Q6H PRN ORAL Itching 03/06/20 19:00 04/05/20 18:59 03/22/20 22:22 Docusate Sodium (Colace) 100 mg THREE TIMES A DAY ORAL 03/08/20 13:00 04/07/20 12:59 03/25/20 09:10 Guaifenesin/ Dextromethorphan (Robitussin DM Syrup) 10 ml Q4H PRN ORAL For Cough 03/06/20 19:00 06/04/20 18:59 03/12/20 00:51 Heparin Sodium (Porcine) (Heparin 5000 units/ml) 5,000 units BID SUBQ 03/07/20 09:00 04/21/20 08:59 03/25/20 09:12 Hydralazine HCl (Apresoline) 50 mg Q8HR ORAL 03/11/20 14:00 06/04/20 17:59 03/24/20 06:00 Insulin Aspart (NovoLOG) BEFORE MEALS AND HS SUBQ 03/13/20 16:30 06/11/20 16:29 03/24/20 17:11 Insulin Aspart (NovoLOG) 10 units NOVOTIAC SUBQ 03/24/20 11:50 06/13/20 06:29 03/24/20 17:13 Insulin Detemir (Levemir) 14 units BID SUBQ 03/24/20 09:00 06/13/20 08:59 03/25/20 09:12 Lisinopril (ZestriL) 5 mg DAILY ORAL 03/17/20 09:00 04/16/20 08:59 03/25/20 09:10 Lorazepam (Ativan 2mg/ml 1ml) 1 mg Q4H PRN IV Agitation 03/19/20 22:15 03/26/20 22:14 Pantoprazole (Protonix) 40 mg EVERY 12 HOURS ORAL 03/08/20 21:00 04/07/20 20:59 03/25/20 09:10 Phenol/Menthol (Chloraseptic) 1 spray TIDPRN PRN ORAL For Pain 03/06/20 19:00 06/04/20 18:59 Prednisone (predniSONE) 10 mg DAILY ORAL 03/29/20 09:00 03/29/20 09:01 Prednisone (predniSONE) 20 mg DAILY ORAL 03/28/20 09:00 03/28/20 09:01 Prednisone (predniSONE) 30 mg DAILY ORAL 03/27/20 09:00 03/27/20 09:01 Prednisone (predniSONE) 40 mg DAILY ORAL 03/26/20 09:00 03/26/20 09:01 Sevelamer Carbonate (Renvela) 1,600 mg THREE TIMES A DAY ORAL 03/09/20 09:00 06/07/20 08:59 03/25/20 09:09 Tamsulosin HCl (Flomax) 0.4 mg BID ORAL 03/08/20 11:30 04/07/20 11:29 03/25/20 09:10 Vitamin B Complex (Vitamin B Complex) 1 tab DAILY ORAL 03/07/20 09:00 06/05/20 08:59 03/25/20 09:10 Assessment/Plan Assessment/Plan IMPRESSION: 1. Improved pulmonary edema/ s/p HD 2. Hypertension. 3. Diabetes mellitus. 4. Renal failure. 5. COPD. 6. Negative COVID 19 7. Small R pleural effusion 8. Peristent leucocytosis DISCUSSION: Continue breathing treatments with albuterol and Atrovent Negative COVID 19 Broad-spectrum antibiotics I will follow carefully. HD per renal Oxygenation improved Continue on nasal oxygen. DC BiPAp Dc planning to SNF Steroid taper Jie Rivera Omar Syed MD Mar 25, 2020 10:58
[2020-03-25] MEDS: Budesonide HHN 0.25mg/2ml ud HHN SCH (11:15)
[2020-03-25 12:00] VITALS: BP 132/64
--- NOTE | 2020-03-25 12:56 | General Progress Note ---
Subjective ROS Limited/Unobtainable: Yes Allergies: Coded Allergies: PENICILLINS (Verified Allergy, Unknown, 03/06/20) Uncoded Allergies: SEAFOOD (Allergy, Unknown, 03/06/20) Objective Last 24 Hour Vital Signs Date Time Temp Pulse Resp B/P (MAP) Pulse Ox O2 Delivery O2 Flow Rate FiO2 03/25/20 12:00 97.9 88 22 132/64 (86) 93 03/25/20 09:10 150/79 03/25/20 09:00 Nasal Cannula 2.0 03/25/20 08:00 97.9 79 20 150/79 (102) 96 03/25/20 08:00 78 03/25/20 07:40 98.1 95 03/25/20 06:00 109/72 03/25/20 04:00 98.1 75 20 127/68 (87) 95 03/25/20 04:00 77 03/25/20 04:00 75 82 82 03/25/20 00:00 97.8 82 20 110/82 (91) 99 03/25/20 00:00 76 03/24/20 22:00 110/82 03/24/20 21:00 Nasal Cannula 2.0 03/24/20 20:10 98 Nasal Cannula 2.0 28 03/24/20 20:09 80 16 98 Nasal Cannula 2.0 28 82 18 94 03/24/20 20:00 91 03/24/20 20:00 98.3 88 22 126/62 (83) 98 03/24/20 16:00 87 03/24/20 16:00 98.1 82 24 135/78 (97) 98 03/24/20 15:00 98.0 92 Intake and Output 03/24/20 03/25/20 19:00 07:00 Intake Total 500 ml Output Total 400 ml Balance 500 ml -400 ml Intake Oral 500 ml Output Urine Total 400 ml # Voids 2 2 Laboratory Tests 03/24/20 15:58: POC Whole Blood Glucose 180H 03/24/20 20:53: POC Whole Blood Glucose 69L 03/25/20 05:30: White Blood Count 20.4H, Red Blood Count 4.01L, Hemoglobin 11.0L, Hematocrit 33.0L, Mean Corpuscular Volume 82, Mean Corpuscular Hemoglobin 27.3, Mean Corpuscular Hemoglobin Concent 33.3, Red Cell Distribution Width 14.8, Platelet Count 206, Mean Platelet Volume 9.2, Neutrophils (%) (Auto) , Lymphocytes (%) (Auto) , Monocytes (%) (Auto) , Eosinophils (%) (Auto) , Basophils (%) (Auto) , Differential Total Cells Counted 100, Neutrophils % (Manual) 96H, Lymphocytes % (Manual) 2L, Monocytes % (Manual) 2, Eosinophils % (Manual) 0, Basophils % (Manual) 0, Band Neutrophils 0, Platelet Estimate Adequate, Platelet Morphology Normal, Anisocytosis 1+, Sodium Level 133L, Potassium Level 4.2, Chloride Level 102, Carbon Dioxide Level 28, Anion Gap 3L, Blood Urea Nitrogen 60H, Creatinine 3.1H, Estimat Glomerular Filtration Rate 24.4, Glucose Level 146#H, Calcium Level 7.7L, Phosphorus Level 3.4, Magnesium Level 2.0, Total Bilirubin 0.2, Aspartate Amino Transf (AST/SGOT) 15, Alanine Aminotransferase (ALT/SGPT) 29, Alkaline Phosphatase 91, C-Reactive Protein, Quantitative < 0.4, Pro-B-Type Natriuretic Peptide 1789H, Total Protein 5.1L, Albumin 1.9L, Globulin 3.2, Albumin/Globulin Ratio 0.6L 03/25/20 05:52: POC Whole Blood Glucose 139H 03/25/20 09:09: POC Whole Blood Glucose [Pending] 03/25/20 12:03: POC Whole Blood Glucose 341H Height (Feet): 5 Height (Inches): 9.00 Weight (Pounds): 228 Assessment/Plan Problem List: (1) COPD (chronic obstructive pulmonary disease) ICD Codes: J44.9 - Chronic obstructive pulmonary disease, unspecified SNOMED: 96376768 Qualifiers: Qualified Codes: J44.1 - Chronic obstructive pulmonary disease with (acute) exacerbation (2) CHF (congestive heart failure) ICD Codes: I50.9 - Heart failure, unspecified SNOMED: 96622619 Qualifiers: Qualified Codes: I50.9 - Heart failure, unspecified (3) Hypoxia ICD Codes: R09.02 - Hypoxemia SNOMED: 205287534 (4) Renal failure (ARF), acute on chronic ICD Codes: N17.9 - Acute kidney failure, unspecified; N18.9 - Chronic kidney disease, unspecified SNOMED: 422905631 Qualifiers: Qualified Codes: N17.9 - Acute kidney failure, unspecified; N18.4 - Chronic kidney disease, stage 4 (severe) Status: progressing Assessment/Plan: dr vinny rosenbaum cleared him for dc and thinks leukocytosis is due to steroids pt is asymptomatic and looks good copd improving on steroids John Chavez MD Mar 25, 2020 12:56
[2020-03-25 13:50] VITALS: BP 132/64
--- NOTE | 2020-03-25 14:05 | Diagnostic Imaging Report ---
EXAM: XR Chest, 1 View CLINICAL HISTORY: INFECT TECHNIQUE: Frontal view of the chest. COMPARISON: Chest radiograph on 03/20/2020 FINDINGS: Hardware: Stable right dual-lumen central venous catheter which terminates in the region of the SVC. Lungs/pleura: Stable elevation of the right hemidiaphragm. Similar right pleural effusion and lower lung atelectasis versus pneumonia. Heart/mediastinum: Normal. No cardiomegaly. Soft tissues: Unremarkable. Bones: No acute fracture. Upper abdomen: Normal. IMPRESSION: Stable elevation of the right hemidiaphragm. Similar right pleural effusion and lower lung atelectasis versus pneumonia.
--- NOTE | 2020-03-25 14:26 | NUR ---
*-*DISCHARGE PLANNED*-* PATIENT ACCEPTED AND WILL BE DISCHARGE BACK TO: [facility] P: [phone] FOR NURSE TO NURSE REPORT ROOM# 6.[facility] TRANSPORTATION SET FOR 3:45PM [id number]. S/W PATIENTS MOTHER OUSMANE, WHO IS IN AGREEMENT WITH DISCHARGE PLAN.
--- NOTE | 2020-03-25 15:55 | NUR ---
NURSE NOTES: Called [facility] and report given to Trso/DAIRY ASSOCIATE.
--- NOTE | 2020-03-25 16:20 | NUR ---
NURSE NOTES: Discharge package given to ambulance personnel. equipment engineering technician and IV removed, No distress, no bleeding noted. Patient is in stable condition. Patient has some belonging in safe Charge nurse and Security brought to him. Patient left with ambulance personnel via gurney.
--- NOTE | 2020-03-25 16:31 | NUR ---
BOW MAKER GIFT WRAPPING NOTES SPOKE WITH SPENCER FROM [facility] CALL THE CAR TRANSPORTATION. SET UP TRANSPORTATION FOR SundayMARCH 29. DOG HAIR CLIPPER TIME 1520 RETURN TIME 1999. PCS FORM FAXED TO [facility] [phone]. SUNDAY REF [id number]
--- NOTE | 2020-03-25 16:38 | Cardiac Electrophysiology PN ---
Assessment/Plan Assessment/Plan 1. Severe bilateral lower extremity edema with shortness of breath and BNP of almost 4000. EF 60%. Due to CHF due to diastolic dysfunction and renal failure, on HD. 2. Hypertension. On HD , hydralazine 50 mg tid, Lisinopril 5 daily and p.r.n. clonidine. 3. Renal failure, creatinine was 3.9 that increased to >4 with BUN 80. Started on HD.Pulled out his Right groin Janusz cath S/P Right chest PermCath placement 03/17/20 4. COPD.Off BIPAP now.On Solumedrol 5. High WBC 20K. Fu ID partially due to steroid DW RN and Dr Singh Subjective Subjective No CP. ECG SR with RBBB, LAFB On Nasal Cannula. S/P Right chest PermCath placement 03/17/20 Now off BIPAP. On 2 liter NC . Had HD yesterday Objective Last 24 Hour Vital Signs Date Time Temp Pulse Resp B/P (MAP) Pulse Ox O2 Delivery O2 Flow Rate FiO2 03/25/20 13:50 132/64 03/25/20 12:00 97.9 88 22 132/64 (86) 93 03/25/20 12:00 92 03/25/20 11:25 86 18 99 Nasal Cannula 2.0 28 89 18 98 03/25/20 09:10 150/79 03/25/20 09:00 Nasal Cannula 2.0 03/25/20 08:00 97.9 79 20 150/79 (102) 96 03/25/20 08:00 78 03/25/20 07:40 98.1 95 03/25/20 07:37 98 Nasal Cannula 2.0 28 03/25/20 06:00 109/72 03/25/20 04:00 98.1 75 20 127/68 (87) 95 03/25/20 04:00 77 03/25/20 04:00 75 82 82 03/25/20 00:00 97.8 82 20 110/82 (91) 99 03/25/20 00:00 76 03/24/20 22:00 110/82 03/24/20 21:00 Nasal Cannula 2.0 03/24/20 20:10 98 Nasal Cannula 2.0 28 03/24/20 20:09 80 16 98 Nasal Cannula 2.0 28 82 18 94 03/24/20 20:00 91 03/24/20 20:00 98.3 88 22 126/62 (83) 98 Intake and Output 03/24/20 03/25/20 19:00 07:00 Intake Total 500 ml Output Total 400 ml Balance 500 ml -400 ml Intake Oral 500 ml Output Urine Total 400 ml # Voids 2 2 Laboratory Tests Test 03/24/20 20:53 03/25/20 05:30 03/25/20 05:52 03/25/20 09:09 POC Whole Blood Glucose 69 MG/DL (74-106) L 139 MG/DL (74-106) H Pending White Blood Count 20.4 K/UL (4.8-10.8) H Red Blood Count 4.01 M/UL (4.70-6.10) L Hemoglobin 11.0 G/DL (14.2-18.0) L Hematocrit 33.0 % (42.0-52.0) L Mean Corpuscular Volume 82 FL (80-99) Mean Corpuscular Hemoglobin 27.3 PG (27.0-31.0) Mean Corpuscular Hemoglobin Concent 33.3 G/DL (32.0-36.0) Red Cell Distribution Width 14.8 % (11.6-14.8) Platelet Count 206 K/UL (150-450) Mean Platelet Volume 9.2 FL (6.5-10.1) Neutrophils (%) (Auto) % (45.0-75.0) Lymphocytes (%) (Auto) % (20.0-45.0) Monocytes (%) (Auto) % (1.0-10.0) Eosinophils (%) (Auto) % (0.0-3.0) Basophils (%) (Auto) % (0.0-2.0) Differential Total Cells Counted 100 Neutrophils % (Manual) 96 % (45-75) H Lymphocytes % (Manual) 2 % (20-45) L Monocytes % (Manual) 2 % (1-10) Eosinophils % (Manual) 0 % (0-3) Basophils % (Manual) 0 % (0-2) Band Neutrophils 0 % (0-8) Platelet Estimate Adequate Platelet Morphology Normal Anisocytosis 1+ Sodium Level 133 MMOL/L (136-145) L Potassium Level 4.2 MMOL/L (3.5-5.1) Chloride Level 102 MMOL/L (98-107) Carbon Dioxide Level 28 MMOL/L (21-32) Anion Gap 3 mmol/L (5-15) L Blood Urea Nitrogen 60 mg/dL (7-18) H Creatinine 3.1 MG/DL (0.55-1.30) H Estimat Glomerular Filtration Rate 24.4 mL/min (>60) Glucose Level 146 MG/DL (74-106) #H Calcium Level 7.7 MG/DL (8.5-10.1) L Phosphorus Level 3.4 MG/DL (2.5-4.9) Magnesium Level 2.0 MG/DL (1.8-2.4) Total Bilirubin 0.2 MG/DL (0.2-1.0) Aspartate Amino Transf (AST/SGOT) 15 U/L (15-37) Alanine Aminotransferase (ALT/SGPT) 29 U/L (12-78) Alkaline Phosphatase 91 U/L (46-116) C-Reactive Protein, Quantitative < 0.4 mg/dL (0.00-0.90) Pro-B-Type Natriuretic Peptide 1789 pg/mL (0-125) H Total Protein 5.1 G/DL (6.4-8.2) L Albumin 1.9 G/DL (3.4-5.0) L Globulin 3.2 g/dL Albumin/Globulin Ratio 0.6 (1.0-2.7) L Test 03/25/20 12:03 POC Whole Blood Glucose 341 MG/DL (74-106) H Objective HEAD AND NECK: Positive JVD. LUNGS: Decreased breath sounds. Right chest PermCath in place CARDIOVASCULAR: Regular S1 and S2 with no gallop. ABDOMEN: Soft. EXTREMITIES: 2+ pitting edema in lower extremities as well as 2+ pitting edema in right arm. Ponce Serna MD Mar 25, 2020 16:38
--- NOTE | 2020-03-26 00:03 | Psychiatric Progress Note ---
Psychiatry Progress Note Psychiatry Progress Note Subjective the pt is having anxiety and irritable mood Neurological/Psychiatric: Reports: anxiety, depressed, emotional problems Allergies: Coded Allergies: PENICILLINS (Verified Allergy, Unknown, 03/06/20) Uncoded Allergies: SEAFOOD (Allergy, Unknown, 03/06/20) Objective Data Height (Feet): 5 Height (Inches): 9.00 Weight (Pounds): 228 General Appearance: no apparent distress Mental Status Exam - Mood: anxious Additional Comments: alert and oriented times self, place, and situation. Mood is anxious. Affect is blunted, congruent with mood. Thought process is linear and goal oriented. Thought content, no suicidal or homicidal ideation. Cognition is intact. Insight and judgment is fair. Assessment/Plan [place] I: ASSESSMENT: [place] I Anxiety disorder. [place] II Deferred. Alexandria III As above. Alexandria IV Low. [place] V 50. PLAN: 1. We will start the patient on Celexa 20 mg in the morning. 2. Ativan as needed. 3. Provide the patient with reality orientation, supportive therapy, and medication. 4. the pt has capacity to make decisions Status: progressing Status Narrative ASSESSMENT: [place] I Anxiety disorder. Alexandria II Deferred. Alexandria III As above. Alexandria IV Low. Alexandria V 50. PLAN: 1. We will start the patient on Celexa 20 mg in the morning. 2. Ativan as needed. 3. Provide the patient with reality orientation, supportive therapy, and medication. 4. the pt has capacity to make decisions Assessment/Plan: ASSESSMENT: [place] I Anxiety disorder. Alexandria II Deferred. Alexandria III As above. Alexandria IV Low. [place] V 50. PLAN: 1. We will start the patient on Celexa 20 mg in the morning. 2. Ativan as needed. 3. Provide the patient with reality orientation, supportive therapy, and medication. 4. the pt has capacity to make decisions Kwasi Diaz MD Mar 26, 2020 00:03
== END 2020-03-25 16:59 | DRG 291 ==
LOC: EDBD 11:01 → EMR 11:35 → 2E 11:48 → EDBEDREQ 12:54 → 2E 03-07 08:00 → 4E 03-18 17:20 → 2W 03-19 17:51 → 2E 03-22 11:22
PROC: 06HM33Z Insertion of Infusion Device into Right Femoral Vein, Percutaneous Approach (ICD-10-PCS; principal; 2020-03-08)
PROC: 5A1D70Z Performance of Urinary Filtration, Intermittent, Less than 6 Hours Per Day (ICD-10-PCS; principal; 2020-03-08)
PROC: 0W993ZZ Drainage of Right Pleural Cavity, Percutaneous Approach (ICD-10-PCS; 2020-03-12)
PROC: 05HM33Z Insertion of Infusion Device into Right Internal Jugular Vein, Percutaneous Approach (ICD-10-PCS; 2020-03-17)
PROC: B513ZZA Fluoroscopy of Right Jugular Veins, Guidance (ICD-10-PCS; 2020-03-17)
PROC: 0JH63XZ Insertion of Tunneled Vascular Access Device into Chest Subcutaneous Tissue and Fascia, Percutaneous Approach (ICD-10-PCS; 2020-03-17)
DX: I13.0 Hypertensive heart and chronic kidney disease with heart failure and stage 1 through stage 4 chronic kidney disease, or unspecified chronic kidney disease (principal); J18.9 Pneumonia, unspecified organism; J96.91 Respiratory failure, unspecified with hypoxia; J44.1 Chronic obstructive pulmonary disease with (acute) exacerbation; N17.9 Acute kidney failure, unspecified; I50.30 Unspecified diastolic (congestive) heart failure; N18.4 Chronic kidney disease, stage 4 (severe); J44.0 Chronic obstructive pulmonary disease with (acute) lower respiratory infection; J90 Pleural effusion, not elsewhere classified; D64.9 Anemia, unspecified; E11.22 Type 2 diabetes mellitus with diabetic chronic kidney disease; E11.65 Type 2 diabetes mellitus with hyperglycemia; E11.40 Type 2 diabetes mellitus with diabetic neuropathy, unspecified; N40.0 Benign prostatic hyperplasia without lower urinary tract symptoms; F41.9 Anxiety disorder, unspecified; E87.70 Fluid overload, unspecified; R42 Dizziness and giddiness; Z22.322 Carrier or suspected carrier of Methicillin resistant Staphylococcus aureus; D72.829 Elevated white blood cell count, unspecified; Z20.828 Contact with and (suspected) exposure to other viral communicable diseases
CPT/HCPCS: 36415; 36558; 36569; 70450; 71045; 76000; 76770; 76937; 76942; 80048; 80053; 80061; 81003; 82550; 82553; 82728; 82803; 82962; 82977; 83036; 83605; 83615; 83690; 83735; 83880; 84100; 84439; 84443; 84484; 84550; 85007; 85025; 85610; 85730; 86140; 86706; 86707; 86803; 87040; 87081; 89051; 93005; 93306; 94640; 94660; 94664; 96365; 96367; 96375; 96376; 99291; 99292; J1815; J7620; S0077; S5561; U0002